=== PATIENT | female | born 1935 | race Hispanic/Latino ===

== ENCOUNTER 2017-06-16 21:05 | Inpatient (IN) | payer MEDICARE ==
--- NOTE | 2017-06-16 21:27 | ED PDOC ---
Arrival/HPI - General Chief Complaint: Cough, Cold, Congestion Time Seen by Provider: 06/16/17 21:20 Historian: Patient - History of Present Illness Narrative History of Present Illness (Text): 06/16/17 21:27 Devika Hernandez is an 81 year old female, whose past medical history includes atrial fibrillation, hypertension, cholecystectomy, arthritis, and osteoporosis , who presents to the Emergency department accompanied by son complaining of flu -like symptoms. Patient states she has been feeling unwell since yesterday with nausea, cough, congestion, and shortness of breath. Son states symptoms worsened tonight prompting patient to come the Emergency room for further evaluation. Patient denies any fever, chest pain, abdominal pain, diarrhea, urinary symptoms, back pain, neck pain, headache, dizziness, or any other complaints. PMD: Dr. De La Garza Symptom Onset: Gradual Symptom Course: Unchanged Activities at Onset: Light Context: Home Past Medical History - Provider Review Nursing Documentation Reviewed: Yes - Infectious Disease Hx of Infectious Diseases: None - Tetanus Immunization Tetanus Immunization: Unknown - Reproductive Menopause: Yes - Cardiac Hx Cardiac Disorders: Yes - Pulmonary Hx Respiratory Disorders: No - Neurological Hx Neurological Disorder: No - HEENT Hx HEENT Disorder: Yes Other/Comment: glasses - Renal Hx Renal Disorder: No - Endocrine/Metabolic Hx Endocrine Disorders: No - Hematological/Oncological Hx Blood Disorders: No - Integumentary Hx Dermatological Disorder: No - Musculoskeletal/Rheumatological Hx Arthritis: Yes - Gastrointestinal Hx Gastrointestinal Disorders: Yes Other/Comment: HEMMORRHOIDS - Genitourinary/Gynecological Hx Genitourinary Disorders: No Hx Urinary Tract Infection: Yes - Psychiatric Hx Psychophysiologic Disorder: No Hx Substance Use: No - Surgical History Hx Cholecystectomy: Yes Other/Comment: HEMORRHOIDECTOMY,HYSTERECTOMY - Anesthesia Hx Anesthesia: Yes Hx Anesthesia Reactions: No Hx Malignant Hyperthermia: No - Suicidal Assessment Feels Threatened In Home Enviroment: No Family/Social History - Physician Review Nursing Documentation Reviewed: Yes Family/Social History: Unknown Family HX Smoking Status: Never Smoked Hx Alcohol Use: No Hx Substance Use: No Hx Substance Use Treatment: No Allergies/Home Meds Allergies/Adverse Reactions: Allergies No Known Allergies Allergy (Verified 06/16/17 21:13) Home Medications: Home Meds Medication Instructions Recorded Confirmed Atorvastatin Calcium [Lipitor] 10 mg PO DAILY 05/11/12 06/16/17 Metoprolol Succinate 100 mg PO DAILY 05/11/12 06/16/17 Warfarin [Coumadin] 2.5 mg PO 1800 05/11/12 06/16/17 Digoxin 0.125 mcg PO DAILY 09/03/15 06/16/17 Potassium Chloride 20 meq PO DAILY 09/03/15 06/16/17 Review of Systems - Physician Review All systems were reviewed & negative as marked: Yes - Review of Systems Constitutional: Normal. absent: Fevers Eyes: Normal ENT: Sinus Congestion, Other (+flu-like symptoms) Respiratory: SOB, Cough Cardiovascular: Normal. absent: Chest Pain Gastrointestinal: Nausea. absent: Abdominal Pain, Diarrhea Genitourinary Female: Normal. absent: Dysuria, Frequency, Hematuria, Urine Output Changes Musculoskeletal: Normal. absent: Back Pain, Neck Pain Skin: Normal. absent: Rash Neurological: Normal. absent: Headache, Dizziness Endocrine: Normal Hemo/Lymphatic: Normal Psychiatric: Normal Physical Exam Vital Signs Reviewed: Yes Vital Signs Temp Pulse Resp BP Pulse Ox 06/17/17 07:29 81 20 122/61 95 06/17/17 06:01 84 19 113/50 L 94 L 06/17/17 02:00 86 18 131/64 95 06/16/17 23:30 77 18 128/78 95 06/16/17 21:13 98.3 F 72 20 134/84 91 L Temperature: Afebrile Blood Pressure: Normal Pulse: Regular Respiratory Rate: Normal Appearance: Positive for: Well-Appearing, Non-Toxic, Comfortable Pain Distress: None Mental Status: Positive for: Alert and Oriented X 3 - Systems Exam Head: Present: Atraumatic, Normocephalic Pupils: Present: PERRL Extroacular Muscles: Present: EOMI Conjunctiva: Present: Normal Mouth: Present: Moist Mucous Membranes Neck: Present: Normal Range of Motion Respiratory/Chest: Present: Wheezes (Bilateral wheezing). No: Respiratory Distress, Accessory Muscle Use Cardiovascular: Present: Normal S1, S2, Irregular Rhythm (Irregular, regular). No: Murmurs Abdomen: Present: Normal Bowel Sounds. No: Tenderness, Distention, Peritoneal Signs Back: Present: Normal Inspection Upper Extremity: Present: Normal Inspection. No: Cyanosis, Edema Lower Extremity: Present: Normal Inspection. No: Edema Neurological: Present: GCS=15, CN II-XII Intact, Speech Normal Skin: Present: Warm, Dry, Normal Color. No: Rashes Psychiatric: Present: Alert, Oriented x 3, Normal Insight, Normal Concentration Medical Decision Making ED Course and Treatment: 06/16/17 21:27 Impression: 81 year old female complaining of nausea, cough, congestion, and shortness of breath. Plan: -- EKG -- CXR -- Labs, cardiac enzymes, BNP, Digoxin, lipase -- Rapid influenza -- Duoneb -- Reassess and disposition Prior Visits: Notes and results from previous visits were reviewed. On 09/03/2015, pt was seen in the Emergency department for generalzied abdominal pain, diarrhea, and loss of appetite. Pt was admitted to the hosptial for further evaluation. Progress Notes: 06/16/17 21:50 Reviewed EKG, a fib at 72 bpm. RBBB. LAHB. Non-specific ST/T wave changes. 06/16/17 23:02 CXR reviewed, shows increased pulmonary vascular markings. 06/16/17 23:[address] Laureano, covering for Dr. Ruggiero, who is aware and agrees with plan. Pt will go to telemetry observation for hypokalemia and dyspnea under Dr. Ruggiero's service. - Lab Interpretations Lab Results: 06/16/17 21:40 06/16/17 21:40 Lab Results 06/16/17 21:40: Digoxin < 0.4 L 06/16/17 21:40: WBC 10.8 D, RBC 4.63, Hgb 14.0, Hct 42.3, MCV 91.4, MCH 30.2, MCHC 33.1, RDW 15.0 H, Plt Count 204, MPV 10.9 06/16/17 21:40: Sodium 136, Potassium 2.8 L*, Chloride 91 L, Carbon Dioxide 35 H , Anion Gap 13, BUN 14, Creatinine 0.7, Est GFR ( Amer) > 60, Est GFR ( Non-Af Amer) > 60, Random Glucose 129 H, Calcium 9.4, Total Bilirubin 0.8, AST 47 H, ALT 37, Alkaline Phosphatase 71, Lactate Dehydrogenase 475, Total Creatine Kinase 68, Troponin I < 0.01, NT-Pro-B Natriuret Pep 288, Total Protein 7.8, Albumin 4.2, Globulin 3.6, Albumin/Globulin Ratio 1.2, Lipase 84 06/16/17 21:40: PT 21.0 H, INR 1.82 H, APTT 42.8 H 06/16/17 20:10: Influenza Typ A,B (EIA) Negative for flu a/b I have reviewed the lab results: Yes - RAD Interpretation Radiology Orders: 06/16/17 21:28 CHEST PORTABLE [RAD] Stat - EKG Interpretation Interpreted by ED Physician: Yes Type: 12 lead EKG - Medication Orders Current Medication Orders: Atorvastatin Calcium (Lipitor) 10 mg PO DAILY [facility] Digoxin (Lanoxin) 0.125 mg PO 1400 [facility] Metoprolol Succinate (Toprol Xl) 100 mg PO DAILY [facility] Potassium Chloride (K-Dur 20 Meq Er Tab) 20 meq PO BRK [facility] Warfarin Sodium (Coumadin) 2.5 mg PO 1800 [facility] PRN Reason: Protocol Discontinued Medications Albuterol/Ipratropium (Duoneb 3 Mg/0.5 Mg (3 Ml) Ud) 3 ml IH ONCE STA Stop: 06/16/17 21:42 Last Admin: 06/16/17 22:16 Dose: 3 ml Albuterol/Ipratropium (Duoneb 3 Mg/0.5 Mg (3 Ml) Ud) 3 ml IH ONCE STA Stop: 06/16/17 23:35 Last Admin: 06/16/17 23:56 Dose: 3 ml Guaifenesin/Codeine Phosphate (Robitussin W/Codeine) 5 ml PO ONCE ONE Stop: 06/17/17 00:04 Last Admin: 06/17/17 00:12 Dose: 5 ml Potassium Chloride (Potassium Chloride 20 Meq/100 Ml) 20 meq in 100 mls @ 50 mls/hr IV ONCE ONE Stop: 06/17/17 01:02 Last Admin: 06/16/17 23:25 Dose: 50 mls/hr eMAR Start Stop Document 06/16/17 23:25 YP (Rec: 06/16/17 23:29 YP [id number]) Intravenous Solution Start Date 06/16/17 Start Time 23:25 End Date 06/17/17 End time 01:25 Total Infusion Time 120 Potassium Chloride (K-Dur 20 Meq Er Tab) 20 meq PO STAT STA Stop: 06/16/17 23:04 Last Admin: 06/16/17 23:30 Dose: 20 meq - Scribe Statement The provider has reviewed the documentation as recorded by the Sylviaibserge Adams All medical record entries made by the Sylviaibserge were at my direction and personally dictated by me. I have reviewed the chart and agree that the record accurately reflects my personal performance of the history, physical exam, medical decision making, and the department course for this patient. I have also personally directed, reviewed, and agree with the discharge instructions and disposition. Disposition/Present on Arrival - Present on Arrival Any Indicators Present on Arrival: No History of DVT/PE: No History of Uncontrolled Diabetes: No Urinary Catheter: No History of Decub. Ulcer: No History Surgical Site Infection Following: None - Disposition Have Diagnosis and Disposition been Completed?: Yes Diagnosis: Hypokalemia, Dyspnea Disposition: HOSPITALIZED Disposition Time: 00:05 Condition: GOOD
[2017-06-16] MEDS ORDERED: Albuterol-Ipratrop 3 mg / 0.5 (3 ml) UD IH STA ×2 (21:41→23:34)
[2017-06-16 22:12] LABS: MEAN CELL VOLUME 91.4 fl (80.0-105.0); MEAN CORPUSCULAR HEMOGLOBIN 30.2 pg (25.0-35.0); MEAN CORPUSCULAR HGB CONC 33.1 g/dl (31.0-37.0); MEAN PLATELET VOLUME 10.9 fl (7.0-11.0); RBC 4.63 10^6/uL (3.5-6.1); WHITE BLOOD COUNT 10.8 10^3/ul (4.5-11.0)
[2017-06-16 22:21] LABS: INR 1.82 (0.93-1.08); PARTIAL THROMBOPLASTIN TIME 42.8 Seconds (25.1-36.5)
[2017-06-16 22:29] LABS: ALB/GLOB RATIO 1.2 (1.1-1.8); ALBUMIN 4.2 g/dL (3.0-4.8); ALT/SGPT 37 U/L (7-56); AST/SGOT 47 U/L (14-36); BLOOD UREA NITROGEN 14 mg/dL (7-21); CALCIUM 9.4 mg/dL (8.4-10.5); GFR AFRICAN-AMERICAN > 60; GFR NON-AFRICAN AMERICAN > 60; LIPASE 84 U/L (23-300)
[2017-06-16 22:31] LABS: B-TYPE NATRIURETIC PEPTIDE 288 pg/mL (0-450); TROPONIN I < 0.01 ng/mL
[2017-06-16] MEDS ORDERED: Potassium Chloride 20 mEq ER Tab PO STA (23:03)
[2017-06-17] MEDS ORDERED: guaiFENesin-Codeine 100-10mg/5ml Syrup (5 ml) UD PO ONE (00:03)
[2017-06-17 06:32] LABS: HEMOGLOBIN 13.4 g/dL (12.0-16.0); MEAN CORPUSCULAR HEMOGLOBIN 30.9 pg (25.0-35.0); RBC 4.34 10^6/uL (3.5-6.1); WHITE BLOOD COUNT 7.7 10^3/ul (4.5-11.0)
[2017-06-17 06:33] LABS: GRAN % 76.4 % (50.0-68.0); LYMPH % 15.1 % (22.0-35.0); MEAN CORPUSCULAR HGB CONC 33.9 g/dl (31.0-37.0); MEAN PLATELET VOLUME 11.2 fl (7.0-11.0); RED CELL DISTRIBUTION WIDTH 15.1 % (11.5-14.5)
[2017-06-17 06:34] LABS: BASO # 0.01 K/mm3 (0.0-2.0); BASO % 0.1 % (0.0-3.0); EOS % 0.1 % (1.5-5.0); GRAN # 5.91 (1.4-6.5); LYMPH # 1.2 (1.2-3.4); MONO # 0.6 (0.1-0.6); MONO % 8.3 % (1.0-6.0)
[2017-06-17 06:53] LABS: BLOOD UREA NITROGEN 11 mg/dL (7-21); CALCIUM 9.3 mg/dL (8.4-10.5); GFR AFRICAN-AMERICAN > 60; GFR NON-AFRICAN AMERICAN > 60
[2017-06-17 07:01] LABS: TROPONIN I 0.03 ng/mL
--- NOTE | 2017-06-17 08:42 | RAD ---
HISTORY: sob COMPARISON: 09/03/2015 FINDINGS: LUNGS: No active pulmonary disease. PLEURA: No significant pleural effusion identified, no pneumothorax apparent. CARDIOVASCULAR: Moderate cardiomegaly OSSEOUS STRUCTURES: No significant abnormalities. VISUALIZED UPPER ABDOMEN: Normal. OTHER FINDINGS: None. IMPRESSION: No active disease.
[2017-06-17] MEDS: Potassium Chloride 20 mEq ER Tab PO SCH (10:21)
[2017-06-17] MEDS: Metoprolol Succinate 100 mg XL Tab PO SCH (12:04)
[2017-06-17] MEDS: Digoxin 125 mcg (0.125 mg) Tab PO SCH (14:13)
[2017-06-17] MEDS: Albuterol-Ipratrop 3 mg / 0.5 (3 ml) UD IH SCH ×2 (14:44→20:50)
[2017-06-17 16:40] VITALS: BMI 41.0
[2017-06-18] MEDS: MethylPREDNISolone 40 mg Vial IVP SCH ×3 (00:05→22:12)
--- NOTE | 2017-06-18 01:20 | HP ---
DATE OF EVALUATION: 06/17/2017 HISTORY OF PRESENT ILLNESS: Ms. Hernandez is an 81-year-old female admitted to the hospital with shortness of breath. She is complaining of cough and cold. Flu is negative in the ER. She also has atrial fibrillation, hypertension, cholecystectomy, osteoarthritis, and osteoporosis. She denies any fever, mucopurulent expectoration. No chest pain. She is still short of breath. Received breathing treatment and IV Lasix in the ER. PAST MEDICAL HISTORY: COPD, CHF, arthritis, and history of multiple UTI. PAST SURGICAL HISTORY: Hemorrhoidectomy, hysterectomy. FAMILY HISTORY: Noncontributory. SOCIAL HISTORY: Never smoked. No history of alcohol abuse. ALLERGIES: NO KNOWN DRUG ALLERGIES. HOME MEDICATIONS: Lipitor 10 mg daily, metoprolol 100 mg daily, Coumadin 2.5 mg daily, digoxin 0.125 mg daily, potassium 20 mEq daily. REVIEW OF SYSTEMS: As per HPI. Rest of 12-point review of systems reviewed is negative. PHYSICAL EXAMINATION: GENERAL: Moderate respiratory distress. VITAL SIGNS: Respiratory rate 25 per minute, temperature 98.3, heart rate is 72 per minute, blood pressure 130/80, and pulse ox is 91 per minute. HEENT: Oral mucosa is dry. NECK: No lymphadenopathy. CHEST: Air entry present and equal bilaterally. No added sounds. CARDIOVASCULAR: S1 and S2, normal. No murmur. No gallop. ABDOMEN: Soft and nontender. No hepatosplenomegaly. EXTREMITIES: No edema. PARA EDUCATOR: Alert and oriented x3. No focal sensory or motor deficit. LABORATORY DATA: White count 10.8, hemoglobin 14, hematocrit 42.3, and platelets 204. Sodium 136, potassium 2.8, BUN 14, creatinine 0.7, glucose 129. DIAGNOSTIC DATA: Chest x-ray, no infiltrates. Pulmonary vascular congestion present. EKG: Nonspecific ST-T wave changes. ASSESSMENT: 1. Chronic obstructive pulmonary disease exacerbation. 2. Congestive heart failure. 3. Atrial fibrillation. 4. Anticoagulation with Coumadin. 5. Anemia. PLAN: She will be admitted to tele monitoring. DuoNeb q.6 hours scheduled and p.r.n., and Lipitor 10 mg daily. We will continue digoxin 0.125 mg daily. Continue metoprolol 100 mg daily, potassium 20 mEq daily, Coumadin 2.5 mg daily, Lasix 20 mg IV stat. We will continue 20 mg of IV Lasix daily. We will do steroids, Solu-Medrol 30 mg q.12 hours. Protonix 40 mg IV daily. Brina Laureano MD
[2017-06-18] MEDS ORDERED: diltiaZEM IVPB 100mg in NS 100 ML IV SCH (01:45)
--- NOTE | 2017-06-18 01:45 | CP.PCM.PN ---
Subjective - Date & Time of Evaluation Date of Evaluation: 06/18/17 Time of Evaluation: 01:45 - Subjective Subjective: Nurse states that heart rate on monitor is in 130's. She is asymptomatic No chest pain , no sob.Has dry cough. Medical record was reviewed. This 81 year old woman was admitted with sob, cough, cold. Has PMH of CHF,COPD,UTI,arthritis. Objective - Vital Signs/Intake and Output Vital Signs (last 24 hours): Temp Pulse Resp BP Pulse Ox 97.8 F 82 18 125/73 95 06/18/17 00:01 06/18/17 00:01 06/18/17 00:01 06/18/17 00:01 06/17/17 07:29 Intake and Output: 06/17/17 06/18/17 18:59 06:59 Intake Total 540 Balance 540 - Medications Medications: Current Medications Albuterol/Ipratropium (Duoneb 3 Mg/0.5 Mg (3 Ml) Ud) 3 ml IH [id number] [facility] Last Admin: 06/17/17 20:50 Dose: 3 ml Atorvastatin Calcium (Lipitor) 10 mg PO DAILY [facility] Last Admin: 06/17/17 10:22 Dose: 10 mg Digoxin (Lanoxin) 0.125 mg PO 1400 [facility] Last Admin: 06/17/17 14:13 Dose: 0.125 mg Furosemide (Lasix) 20 mg IVP DAILY [facility] Methylprednisolone (Solu-Medrol) 20 mg IVP Q12 [facility] Last Admin: 06/18/17 00:05 Dose: 20 mg Metoprolol Succinate (Toprol Xl) 100 mg PO DAILY [facility] Last Admin: 06/17/17 12:04 Dose: 100 mg Pantoprazole Sodium (Protonix Inj) 40 mg IVP DAILY [facility] Potassium Chloride (K-Dur 20 Meq Er Tab) 20 meq PO BRK [facility] Last Admin: 06/17/17 10:21 Dose: 20 meq Warfarin Sodium (Coumadin) 2.5 mg PO 1800 [facility] PRN Reason: Protocol Last Admin: 06/17/17 18:44 Dose: 2.5 mg - Labs Labs: 06/17/17 05:30 06/17/17 05:30 PT 21.0 SECONDS (9.4-12.5) H 06/16/17 21:40 INR 1.82 (0.93-1.08) H 06/16/17 21:40 APTT 42.8 Seconds (25.1-36.5) H 06/16/17 21:40 - Constitutional Appears: Well, No Acute Distress - Head Exam Head Exam: ATRAUMATIC, NORMAL INSPECTION, NORMOCEPHALIC - Eye Exam Eye Exam: Normal appearance - ENT Exam ENT Exam: Normal External Ear Exam - Neck Exam Neck Exam: Normal Inspection - Respiratory Exam Respiratory Exam: NORMAL BREATHING PATTERN - Cardiovascular Exam Cardiovascular Exam: absent: JVD - Rectal Exam Rectal Exam: Deferred - Exam Additional comments: Deferred. - Extremities Exam Extremities Exam: Normal Inspection - Back Exam Back Exam: NORMAL INSPECTION - Neurological Exam Neurological Exam: Alert, Oriented x3 - Psychiatric Exam Psychiatric exam: Normal Affect - Skin Skin Exam: Normal Color Assessment and Plan - Assessment and Plan (Free Text) Assessment: Cough. Atrial fibrillation. CHF. COPD. Arthritis. Plan: Robitussin as per order.
[2017-06-18] MEDS: Albuterol-Ipratrop 3 mg / 0.5 (3 ml) UD IH SCH ×5 (01:55→21:06)
[2017-06-18 02:13] LABS: TROPONIN I 0.02 ng/mL
[2017-06-18 02:14] LABS: BLOOD UREA NITROGEN 14 mg/dL (7-21); CALCIUM 9.3 mg/dL (8.4-10.5); GFR AFRICAN-AMERICAN > 60; GFR NON-AFRICAN AMERICAN > 60; MAGNESIUM 1.2 mg/dL (1.7-2.2)
[2017-06-18] MEDS: guaiFENesin 200 mg/10 ml Syrup UD PO PRN (02:19)
[2017-06-18] MEDS ORDERED: Magnesium Sulfate 2 GM in Sodium Chloride 0.9% 100 ML IVPB ONE (05:02)
[2017-06-18] MEDS: Potassium Chloride 20 mEq ER Tab PO SCH ×6 (05:18→18:05)
[2017-06-18 07:38] LABS: BLOOD UREA NITROGEN 15 mg/dL (7-21); CALCIUM 8.8 mg/dL (8.4-10.5); GFR AFRICAN-AMERICAN > 60; GFR NON-AFRICAN AMERICAN > 60
[2017-06-18 07:40] LABS: TROPONIN I 0.02 ng/mL
[2017-06-18 07:52] LABS: BASO # 0.01 K/mm3 (0.0-2.0); BASO % 0.2 % (0.0-3.0); GRAN # 4.94 (1.4-6.5); HEMOGLOBIN 14.6 g/dL (12.0-16.0); LYMPH # 0.8 (1.2-3.4); LYMPH % 14.1 % (22.0-35.0); MEAN CELL VOLUME 89.7 fl (80.0-105.0); MEAN CORPUSCULAR HEMOGLOBIN 30.2 pg (25.0-35.0); MEAN CORPUSCULAR HGB CONC 33.6 g/dl (31.0-37.0); MEAN PLATELET VOLUME 11.6 fl (7.0-11.0); MONO # 0.2 (0.1-0.6); MONO % 2.7 % (1.0-6.0); RBC 4.84 10^6/uL (3.5-6.1); RED CELL DISTRIBUTION WIDTH 15.1 % (11.5-14.5)
[2017-06-18] MEDS: Metoprolol Succinate 100 mg XL Tab PO SCH (09:16)
--- NOTE | 2017-06-18 10:01 | CARD ---
APPROVED REPORT EKG Measurement Heart [id number] <Conclusion> Atrial fibrillation Right bundle branch block Left anterior fascicular block Bifascicular block Abnormal ECG
[2017-06-18 10:10] LABS: BLOOD UREA NITROGEN 15 mg/dL (7-21); CALCIUM 9.3 mg/dL (8.4-10.5); GFR AFRICAN-AMERICAN > 60; GFR NON-AFRICAN AMERICAN > 60
--- NOTE | 2017-06-18 10:25 | CARD ---
APPROVED REPORT EKG Measurement Heart [id number] <Conclusion> A. Fib RBBB LAHB STTW changes C/W prior ECG: the rate is increased
--- NOTE | 2017-06-18 10:29 | CARD ---
APPROVED REPORT EKG Measurement Heart [id number] <Conclusion> Atrial fibrillation with rapid ventricular response Right bundle branch block Left anterior fascicular block Bifascicular block STTW changes
[2017-06-18] MEDS: Magnesium Oxide 400 mg Tab UD PO SCH ×2 (10:56→18:05)
--- NOTE | 2017-06-18 12:29 | PN ---
DATE: SUBJECTIVE: The patient has no complaints of any chest pain, shortness of breath. No headaches. She was initially admitted to the hospital. She had hypokalemia. No chest pain. No shortness of breath or headache. PHYSICAL EXAMINATION: VITAL SIGNS: Temperature is 98.9, pulse of 136, blood pressure is 114/69, respirations of 20 and O2 saturation 95%. GENERAL: The patient is lying in bed, flat, comfortable. HEENT: No oral lesion. Anicteric sclerae. Moist mucosa. NECK: No JVD, adenopathy, or thyromegaly. CARDIOVASCULAR: S1 and S2, regular. No murmurs, rubs, or gallops. LUNGS: Clear to auscultation bilaterally. No wheeze, rales, or rhonchi. ABDOMEN: Bowel sounds are positive, soft, nontender and nondistended. EXTREMITIES: No cyanosis, clubbing or edema. ASSESSMENT: 1. Atrial fibrillation with rapid rate. 2. Chronic obstructive pulmonary disease. 3. Hypokalemia. 4. Anemia. 5. Congestive heart failure secondary to systolic dysfunction. 6. Dyslipidemia. 7. Osteoarthritis. PLAN: The patient is currently comfortable. She is on Coumadin for her anticoagulation for her AFib. She has potassium that was low, she is getting potassium. She is on Cardizem drip. The patient is being seen by . The patient will need to come off her Cardizem drip and have the rate control. She is on Toprol. She is going to continue with Solu-Medrol. She is on nebulizer treatments. Repeat the patient's blood work. Jw Ruggiero MD
[2017-06-18] MEDS: Digoxin 125 mcg (0.125 mg) Tab PO SCH (15:23)
--- NOTE | 2017-06-18 21:24 | CON ---
DATE: 06/18/2017 INDICATIONS: Shortness of breath, atrial fibrillation, hypokalemia, and hypomagnesemia. HISTORY OF PRESENT ILLNESS: This is an 81-year-old woman known to me with chronic atrial fibrillation, admitted with worsening flu-like symptoms including weakness, nausea, cough, shortness of breath. Symptoms got worse late yesterday. She was brought to the emergency room and found to have severe hypokalemia and hypomagnesemia. Overnight, she has been treated with potassium and magnesium replacement. She feels better this morning but still has cough and some congestion. There is no chest pain, orthopnea, PND, syncope, presyncope, lightheadedness, dizziness, vertigo, palpitations, edema, claudication, hemoptysis, abdominal pain, nausea, vomiting, diarrhea, constipation and melena. PAST MEDICAL HISTORY: Notable for atrial fibrillation. She is on chronic warfarin therapy. There is a history of hypertension, osteoporosis, arthritis. PAST SURGICAL HISTORY: History of surgeries including gallbladder surgery, hemorrhoidectomy, and hysterectomy. There is no history of rheumatic fever, myocardial infarction, angina, stroke, TIA, diabetes, or gout. MEDICATIONS: At the time of admission include Lipitor, metoprolol, warfarin, digoxin, and potassium chloride. She is not on a diuretic that I can see. ALLERGIES: THERE ARE NO KNOWN MEDICATION ALLERGIES. SOCIAL HISTORY: She lives at home. She is a nonsmoker. She does not drink alcohol significantly. FAMILY HISTORY: Noncontributory. REVIEW OF SYSTEMS: Ten-point review of systems, otherwise, unremarkable except as noted above. PHYSICAL EXAMINATION GENERAL: She is a well-developed woman lying in bed on telemetry with no acute distress, but intermittent cough. VITAL SIGNS: She is in atrial fib at 92 to 136 beats per minute. She is afebrile. Blood pressure 114/69, respirations 18 to 20, O2 saturation 95% on nasal cannula. HEENT: Exam reveals no neck vein distention, thyromegaly, or carotid bruits. Mucous membranes moist. Conjunctiva pink. NECK: Supple. LUNGS: Lung forman, scattered rhonchi. HEART: Examination of the heart revealed an irregular rhythm, fairly rapid. Normal first and second heart sounds. Soft systolic murmur along the left sternal border. ABDOMEN: Soft. Bowel sounds present. No mass, organomegaly, tenderness, rebound, guarding, CVA tenderness, or palpable abdominal aortic aneurysm. EXTREMITIES: Exam revealed no cyanosis, clubbing, or edema. NEUROLOGICAL: She was awake, alert, and oriented. SKIN: Warm and dry. No rash or cellulitis. PSYCHIATRIC: Normal as to mood and affect. LABORATORY AND IMAGING: EKG demonstrated atrial fibrillation with leftward axis, right bundle branch block, ST-T wave changes. No change from prior EKG except that the rate is faster. A portable chest x-ray revealed no active disease. CBC is unremarkable. PT 21, INR 1.82, PTT 42.8. Electrolytes initially show potassium of 2.8 and today potassium is 3.0, creatinine 0.7 and today 0.6. Blood sugars are noted in the 114 to 164 range. Magnesium was 1.2 this morning. AST is elevated at 47, ALT is normal, alk phos normal, LDH normal, CK normal. Four troponins normal. BNP 288. Lipase normal. Digoxin is less than 0.4. Influenza negative. IMPRESSION: Devika Hernandez is an 81-year-old woman who presents with cough, congestion, weakness and was found to have severe hypokalemia and hypomagnesemia in addition to chronic atrial fibrillation, on warfarin; hypertension and hyperlipidemia. PLAN: At this time, I agree with current plan. She is on telemetry and she is getting potassium and magnesium replacements. The etiology of this is unclear and as much as I do not see that she was on a diuretic and there was no history of diarrhea. She was on a potassium replacement which she stopped for 2 days. I will hold Lasix at this time so that we can replace her potassium. She is getting pulmonary treatments. I will continue warfarin and monitor INRs. I will continue digoxin. I will continue Lipitor. Solu-Medrol has been ordered. I will order an echocardiogram. We will monitor Is and Os. Check stool for occult blood. Monitor daily labs, especially potassium and magnesium levels. I have spoken with her daughter. I will follow along with you. I will make additional recommendations based on the clinical course. Kirit Rodriguez MD [facility]
[2017-06-19] MEDS: Albuterol-Ipratrop 3 mg / 0.5 (3 ml) UD IH SCH ×4 (02:04→19:34)
[2017-06-19 07:29] LABS: MEAN CELL VOLUME 90.3 fl (80.0-105.0); MEAN CORPUSCULAR HEMOGLOBIN 30.9 pg (25.0-35.0); MEAN CORPUSCULAR HGB CONC 34.2 g/dl (31.0-37.0); MEAN PLATELET VOLUME 11.3 fl (7.0-11.0); RBC 5.18 10^6/uL (3.5-6.1); RED CELL DISTRIBUTION WIDTH 14.4 % (11.5-14.5); WHITE BLOOD COUNT 7.7 10^3/ul (4.5-11.0)
[2017-06-19 08:46] LABS: ALB/GLOB RATIO 1.1 (1.1-1.8); ALBUMIN 4.3 g/dL (3.0-4.8); ALT/SGPT 41 U/L (7-56); AST/SGOT 51 U/L (14-36); BLOOD UREA NITROGEN 28 mg/dL (7-21); CALCIUM 9.4 mg/dL (8.4-10.5); GFR AFRICAN-AMERICAN > 60; GFR NON-AFRICAN AMERICAN > 60; MAGNESIUM 1.9 mg/dL (1.7-2.2)
[2017-06-19] MEDS: Metoprolol Succinate 100 mg XL Tab PO SCH (09:06)
[2017-06-19] MEDS: Magnesium Oxide 400 mg Tab UD PO SCH ×2 (09:13→17:12)
[2017-06-19] MEDS: Potassium Chloride 20 mEq ER Tab PO SCH ×3 (09:13→17:12)
--- NOTE | 2017-06-19 09:15 | CP.PCM.PN ---
Subjective - Date & Time of Evaluation Date of Evaluation: 06/19/17 Time of Evaluation: 07:00 - Subjective Subjective: Stable on 3R. She feels better now. Still mild cough. V/S noted. AF with mod. VR. PE: Lungs: clear Cor.: irreg. S1S2 Abd.: soft Ext.: no edema Neuro.: alert Labs noted: Na+= 139, K+= 4.1, Mg.++= 1.9 Echo done: Will review. prelim: Nl LV fx. Objective - Vital Signs/Intake and Output Vital Signs (last 24 hours): Temp Pulse Resp BP Pulse Ox 97.7 F 72 20 128/79 91 L 06/19/17 06:00 06/19/17 06:00 06/19/17 06:00 06/19/17 06:00 06/19/17 06:00 Intake and Output: 06/19/17 06/19/17 06:59 18:59 Intake Total 660 Balance 660 - Medications Medications: Current Medications Albuterol/Ipratropium (Duoneb 3 Mg/0.5 Mg (3 Ml) Ud) 3 ml IH [id number] [facility] Last Admin: 06/19/17 07:50 Dose: Not Given Atorvastatin Calcium (Lipitor) 10 mg PO DAILY [facility] Last Admin: 06/18/17 09:16 Dose: 10 mg Digoxin (Lanoxin) 0.125 mg PO 1400 [facility] Last Admin: 06/18/17 15:23 Dose: 0.125 mg Furosemide (Lasix) 20 mg IVP DAILY [facility] Last Admin: 06/18/17 09:15 Dose: 20 mg Guaifenesin (Robitussin) 200 mg PO Q4H PRN PRN Reason: Cough and congestion Last Admin: 06/18/17 02:19 Dose: 200 mg Magnesium Oxide (Mag-Ox) 400 mg PO BID [facility] Last Admin: 06/18/17 18:05 Dose: 400 mg Metoprolol Succinate (Toprol Xl) 100 mg PO DAILY [facility] Last Admin: 06/18/17 09:16 Dose: 100 mg Pantoprazole Sodium (Protonix Inj) 40 mg IVP DAILY [facility] Last Admin: 06/18/17 09:15 Dose: 40 mg Potassium Chloride (K-Dur 20 Meq Er Tab) 20 meq PO TID [facility] Last Admin: 06/18/17 18:05 Dose: 20 meq Warfarin Sodium (Coumadin) 2.5 mg PO 1800 [facility] PRN Reason: Protocol Last Admin: 06/18/17 18:05 Dose: 2.5 mg - Labs Labs: 06/19/17 07:15 06/19/17 07:15 PT 21.0 SECONDS (9.4-12.5) H 06/16/17 21:40 INR 1.82 (0.93-1.08) H 06/16/17 21:40 APTT 42.8 Seconds (25.1-36.5) H 06/16/17 21:40 Assessment and Plan - Assessment and Plan (Free Text) Assessment: Weakness, Cough, Congestion, Dyspnea Hypokalemia and hypomagnesemia Chronic AF on warfarin HBP Osteoporosis DJD GB surgery, Hysterectomy and hernia repair Plan: Case D/W Dr. De La Garza yesterday and Dr. Ruggiero today OK for D/C home with close out-pt f/u with Dr. De La Garza Spironolactone trial. PO mag.
--- NOTE | 2017-06-19 09:49 | DS ---
HISTORY OF PRESENT ILLNESS: This is an 81-year-old female who came into the hospital with rapid atrial fibrillation, hypokalemia and hypomagnesemia. The patient had her electrolytes replaced. She was started on IV Cardizem and had improvement of her symptoms. The patient's Cardizem was taken off and she was controlled. The patient was seen by Dr. Rodriguez. She had an echocardiogram that was ordered. She has no complaints of any headaches or dizziness. No nausea. She states she is feeling better. PHYSICAL EXAMINATION: VITAL SIGNS: She has a temperature of 98.4, pulse of 69, blood pressure of 132/75, respirations of 20, and O2 saturation of 91%. Height is 5 feet, weight is 210 pounds, and BMI is 41. GENERAL: The patient is lying in bed, flat, comfortable. HEENT: No oral lesion. Anicteric sclerae. Moist mucosa. NECK: No JVD, adenopathy, or thyromegaly. CARDIOVASCULAR: S1 and S2, regular. No murmurs, rubs, or gallops. LUNGS: Clear to auscultation bilaterally. No wheeze, rales, or rhonchi. ABDOMEN: Bowel sounds are positive, soft, nontender and nondistended. EXTREMITIES: No cyanosis, clubbing or edema. LABORATORY DATA: Her a.m. labs are pending. ASSESSMENT: 1. Atrial fibrillation with rapid rate, not controlled. 2. Chronic obstructive pulmonary disease. 3. Hypokalemia, improved. 4. Hypomagnesemia. 5. Anemia. 6. Congestive heart failure secondary to systolic dysfunction. 7. Dyslipidemia. 8. Osteoarthritis. PLAN: The patient is currently comfortable. She is on Coumadin for her anticoagulation for her atrial fibrillation. The patient is receiving digoxin. She is receiving Protonix. She is on Solu-Medrol, I will discontinue the patient's Solu-Medrol at this point. The patient is on metoprolol, this will be continued. I did spoke with Dr. Rodriguez and he does not think that the patient needs anything more than the metoprolol to control her atrial fibrillation. She is currently off IV Cardizem and is not on p.o. Cardizem. The patient is on Lipitor for dyslipidemia. She is going to be discharged on magnesium and Aldactone. The patient was advised to follow with the primary care doctor. CONDITION: Stable. ACTIVITY: Increase as tolerated. Follow with in 1 to [address] Rodriguez in 1 to 2 weeks. DISCHARGE MEDICATIONS: 1. Aldactone 25 mg p.o. daily. 2. Magnesium 400 mg p.o. daily. Jw Ruggiero MD
--- NOTE | 2017-06-19 11:05 | CARD ---
APPROVED REPORT EXAM: Two-dimensional and M-mode echocardiogram with Doppler and color Doppler. Other Information Quality : FairRhythm : INDICATION Dyspnea Atrial Fibrillation 2D DIMENSIONS Left Atrium (2D)4.5 (1.6-4.0cm) M-Mode DIMENSIONS Aortic Root3.60 (2.2-3.7cm)Aortic Cusp Exc.1.60 (1.5-2.0cm) Aortic Valve AoV Peak Tlzrgtxy823.0cm/s Mitral Valve E/A ratio0.0 TDI E/Lateral E'0.0E/Medial E'0.0 Pulmonary Valve PV Peak Nkvqqzfg007.0cm/sPV Peak Grad.5mmHg Tricuspid Valve TR Peak Ppjdpvwz993zz/sRAP [id number] Peak Gr.31mmHg [id number] LEFT VENTRICLE The left ventricle is normal size. There is normal left ventricular wall thickness. The left ventricular function is normal. The left ventricular ejection fraction is within the normal range. There is normal LV segmental wall motion. RIGHT VENTRICLE The right ventricle is normal size. ATRIA The left atrium is moderately dilated. The right atrium is mildly dilated. The interatrial septum is intact with no evidence for an atrial septal defect. AORTIC VALVE The aortic valve is mildly calcified. MITRAL VALVE The mitral valve is normal in structure. Mitral regurgitation is mild. TRICUSPID VALVE The tricuspid valve is normal in structure. There is trace tricuspid regurgitation. PULMONIC VALVE The pulmonic valve is not well visualized. GREAT VESSELS The aortic root is normal in size. PERICARDIAL EFFUSION There is no pericardial effusion. <Conclusion> The left ventricle is normal size. There is normal left ventricular wall thickness. The left ventricular function is normal. The aortic valve is mildly calcified. Aortic sclerosis. Mitral regurgitation is mild. There is trace tricuspid regurgitation.
[2017-06-19] MEDS: Digoxin 125 mcg (0.125 mg) Tab PO SCH (13:36)
[2017-06-20] MEDS: Albuterol-Ipratrop 3 mg / 0.5 (3 ml) UD IH SCH ×4 (01:30→20:10)
[2017-06-20 04:15] VITALS: RESP 18
[2017-06-20 06:16] VITALS: TEMP 97.6
[2017-06-20] MEDS: guaiFENesin 200 mg/10 ml Syrup UD PO PRN ×2 (08:48→13:29)
[2017-06-20] MEDS: Metoprolol Succinate 100 mg XL Tab PO SCH ×2 (08:48→10:48)
[2017-06-20] MEDS: Pantoprazole 40 mg EC Tab PO SCH ×2 (08:48→08:52)
[2017-06-20] MEDS: Potassium Chloride 20 mEq ER Tab PO SCH ×3 (10:47→17:34)
[2017-06-20] MEDS: Magnesium Oxide 400 mg Tab UD PO SCH ×2 (10:47→17:26)
--- NOTE | 2017-06-20 10:59 | PN ---
DATE: 06/20/2017 SUBJECTIVE: The patient has no complaints of any chest pain or shortness of breath. No headache. She was not able to come yesterday because of rapid rate secondary to atrial fibrillation. PHYSICAL EXAMINATION: VITAL SIGNS: Temperature is 98.2, pulse is 70, blood pressure is 114/68, respiration is 18. GENERAL: The patient is lying in bed, flat, comfortable. HEENT: No oral lesion. Anicteric sclerae. Moist mucosa. NECK: No JVD, adenopathy, or thyromegaly. HEART: Irregularly irregular. LUNGS: Clear to auscultation bilaterally. No wheeze, rales, or rhonchi. ABDOMEN: Bowel sounds are positive, soft, nontender and nondistended. EXTREMITIES: No cyanosis, clubbing or edema. LABORATORY DATA: White count is 7.7, hemoglobin 16, creatinine 0.7. ASSESSMENT: 1. Atrial fibrillation with rapid rate. 2. Chronic obstructive pulmonary disease, stable. 3. Hypokalemia, improved. 4. Hypomagnesemia, improved. 5. Anemia. 6. Congestive heart failure secondary to systolic dysfunction. 7. Dyslipidemia. 8. Osteoarthritis. PLAN: The patient is currently on Coumadin for anticoagulation. We will continue the patient's digoxin and continue with Lasix daily. She is on magnesium. We will place the patient on metoprolol. The patient was tachycardic yesterday, then has improvement of the heart rate. We will wait for the input from Cardiology. Jw Ruggiero MD
--- NOTE | 2017-06-20 14:30 | PN ---
DATE: 06/20/2017 SUBJECTIVE: The patient is seen lying in bed on telemetry. She is seen in the presence of her daughter. She converted to sinus rhythm this morning. Her discharge yesterday was held because of an increased rate in the setting of atrial fibrillation. CURRENT MEDICATIONS: Include Coumadin, DuoNeb inhaler, digoxin 0.125 mg daily, Lasix 40 mg daily, potassium 20 mEq t.i.d., Lipitor 10 mg daily, Protonix, and Toprol-XL 100 mg daily. OBJECTIVE: GENERAL: She is an elderly woman, appears comfortable at rest. VITAL SIGNS: Blood pressure is 110/70 with a pulse of 68 and sinus, respirations are 14. She is afebrile. HEENT: No JVD. CHEST: Few scattered rhonchi. HEART: PMI in normal position. Soft systolic murmurs noted at the bases as well as at the left sternal border. ABDOMEN: Soft, nontender. Normoactive bowel sounds. EXTREMITIES: No edema. DIAGNOSTIC DATA: Echocardiogram was performed revealing a normal LV size and function with normal wall thickness and mild aortic sclerosis was present and mild mitral regurgitation was noted as well. No blood work is pending from this morning. IMPRESSION: 1. Paroxysmal atrial fibrillation, currently in sinus rhythm. 2. Electrolyte abnormalities on admission currently corrected. 3. History of hypertension. RECOMMENDATIONS: The current medications will be continued for now. From cardiac standpoint, she appears stable for discharge home with outpatient follow up. If she has recurrent atrial fibrillation with rapid ventricular response, the addition of diltiazem may be appropriate. From a cardiac standpoint, she is stable for discharge. We will be happy to see her as an outpatient as well. Toño Vernon MD
[2017-06-20] MEDS: Digoxin 125 mcg (0.125 mg) Tab PO SCH (14:50)
[2017-06-20 15:10] VITALS: PULSE 54
[2017-06-20] MEDS ORDERED: guaiFENesin 200 mg/10 ml Syrup UD PO SCH (18:00)
[2017-06-20 19:19] VITALS: BP 143/99; PULSE 130; O2SAT 95
--- NOTE | 2017-06-21 11:23 | CARD ---
APPROVED REPORT EKG Measurement Heart [id number] <Conclusion> Atrial fibrillation with rapid ventricular response RBBB LAHB STTW changes No change
== END 2017-06-20 20:28 | disposition home or self-care (01) | DRG 191 ==
LOC: ED 21:05 → ERH 06-17 00:04 → 3RSO 06-17 18:10 → OBSVTOIN 06-18 08:48
PROVIDERS: ADMIT Internal Medicine Nephrology; ATTEND Internal Medicine Nephrology
DX: J44.1 Chronic obstructive pulmonary disease with (acute) exacerbation (principal); I50.20 Unspecified systolic (congestive) heart failure; E83.42 Hypomagnesemia; I11.0 Hypertensive heart disease with heart failure; I48.0 Paroxysmal atrial fibrillation; Z68.41 Body mass index [BMI] 40.0-44.9, adult; E87.6 Hypokalemia; D64.9 Anemia, unspecified; E78.5 Hyperlipidemia, unspecified; I48.2 Chronic atrial fibrillation; M19.90 Unspecified osteoarthritis, unspecified site; M81.0 Age-related osteoporosis without current pathological fracture; Z79.01 Long term (current) use of anticoagulants; Z79.899 Other long term (current) drug therapy; Z87.440 Personal history of urinary (tract) infections; Z90.49 Acquired absence of other specified parts of digestive tract; Z90.710 Acquired absence of both cervix and uterus; R40.2412 Glasgow coma scale score 13-15, at arrival to emergency department; I45.10 Unspecified right bundle-branch block; I08.0 Rheumatic disorders of both mitral and aortic valves

== ENCOUNTER 2017-08-17 09:54 | Inpatient (IN) | payer MEDICARE ==
[2017-08-17 09:56] VITALS: PULSE 54
[2017-08-17 10:02] VITALS: BMI 40.4
[2017-08-17 10:28] LABS: VENOUS BLOOD GAS BASE EXCESS 3.2 mmol/L (0.0-2.0); VENOUS BLOOD GAS PO2 34 mm/Hg (30-55)
[2017-08-17 10:31] LABS: BASO # 0.02 K/mm3 (0.0-2.0); BASO % 0.2 % (0.0-3.0); EOS # 0.1 (0.0-0.7); GRAN # 5.86 (1.4-6.5); GRAN % 67.1 % (50.0-68.0); HEMOGLOBIN 13.9 g/dL (12.0-16.0); LYMPH # 2.3 (1.2-3.4); LYMPH % 26.2 % (22.0-35.0); MEAN CELL VOLUME 93.4 fl (80.0-105.0); MEAN CORPUSCULAR HEMOGLOBIN 30.4 pg (25.0-35.0); MEAN CORPUSCULAR HGB CONC 32.6 g/dl (31.0-37.0); MONO # 0.5 (0.1-0.6); MONO % 5.5 % (1.0-6.0); RBC 4.57 10^6/uL (3.5-6.1); RED CELL DISTRIBUTION WIDTH 15.3 % (11.5-14.5); WHITE BLOOD COUNT 8.7 10^3/ul (4.5-11.0)
--- NOTE | 2017-08-17 10:32 | ED PDOC ---
Arrival/HPI - General Chief Complaint: Shortness Of Breath Time Seen by Provider: 08/17/17 10:14 Historian: Patient - History of Present Illness Narrative History of Present Illness (Text): 08/17/17 10:27 82yo female with PMhx of Afib referred to ED by Dr. De La Garza for hypotension and bradycardia. The daughter by the bedside states patient started having SOB while climibing the stairs to her Doctors office for a routine blood work. states while patient was at the Doctors office she was found to be hyptoensive and shawn. She also reports worsening LE edema. States that patient is currently on sprinolactone. Denies chest pain, cough, fever, chills, nausea, vomiting, diaphoresis, calf pain, any other complaint. Past Medical History - Provider Review Nursing Documentation Reviewed: Yes - Infectious Disease Hx of Infectious Diseases: None - Tetanus Immunization Tetanus Immunization: Unknown - Cardiac Hx Cardiac Disorders: Yes Hx Hypertension: Yes - Pulmonary Hx Respiratory Disorders: No - Neurological Hx Neurological Disorder: No - HEENT Hx HEENT Disorder: Yes Other/Comment: glasses - Renal Hx Renal Disorder: No - Endocrine/Metabolic Hx Endocrine Disorders: No - Hematological/Oncological Hx Blood Disorders: No - Integumentary Hx Dermatological Disorder: No - Musculoskeletal/Rheumatological Hx Arthritis: Yes Hx Falls: No - Gastrointestinal Hx Gastrointestinal Disorders: Yes Other/Comment: HEMMORRHOIDS - Genitourinary/Gynecological Hx Genitourinary Disorders: No Hx Urinary Tract Infection: Yes - Psychiatric Hx Psychophysiologic Disorder: No Hx Substance Use: No - Surgical History Hx Cholecystectomy: Yes Other/Comment: HEMORRHOIDECTOMY,HYSTERECTOMY - Anesthesia Hx Anesthesia: Yes Hx Anesthesia Reactions: No Hx Malignant Hyperthermia: No - Suicidal Assessment Feels Threatened In Home Enviroment: No Family/Social History - Physician Review Nursing Documentation Reviewed: Yes Family/Social History: Unknown Family HX Smoking Status: Never Smoked Hx Alcohol Use: No Hx Substance Use: No Hx Substance Use Treatment: No Allergies/Home Meds Allergies/Adverse Reactions: Allergies No Known Allergies Allergy (Verified 08/17/17 17:51) Home Medications: Home Meds Medication Instructions Recorded Confirmed Atorvastatin Calcium [Lipitor] 10 mg PO DAILY 05/11/12 08/17/17 Warfarin [Coumadin] 2 mg PO 1800 05/11/12 08/17/17 Digoxin [Lanoxin] 125 mcg PO DAILY 08/17/17 08/17/17 Magnesium Oxide [Mag-Ox] 400 mg PO DAILY 08/17/17 08/17/17 Metoprolol Tartrate [Lopressor] 50 mg PO BID 08/17/17 08/17/17 Potassium Chloride [Klor-Con M20] 20 meq PO DAILY 08/17/17 08/17/17 Review of Systems - Physician Review All systems were reviewed & negative as marked: Yes - Review of Systems Constitutional: Normal Eyes: Normal ENT: Normal Respiratory: SOB. absent: Cough, Sputum Cardiovascular: Edema. absent: Chest Pain, Palpitations, Calf Pain Gastrointestinal: Normal Genitourinary Female: Normal Musculoskeletal: Normal Skin: Normal Neurological: Normal Endocrine: Normal Hemo/Lymphatic: Normal Psychiatric: Normal Physical Exam Vital Signs Reviewed: Yes Vital Signs Temp Pulse Resp BP Pulse Ox 08/17/17 15:25 30 L 08/17/17 13:00 97.9 F 32 L 18 101/43 L 97 08/17/17 11:55 59 L 18 118/59 L 96 08/17/17 11:26 118/59 L 08/17/17 10:08 97.6 F 66 29 H 133/62 93 L Temperature: Afebrile Blood Pressure: Normal Pulse: Regular Respiratory Rate: Tachypneic Appearance: Positive for: Well-Appearing, Non-Toxic, Comfortable Pain Distress: None Mental Status: Positive for: Alert and Oriented X 3 - Systems Exam Head: Present: Atraumatic, Normocephalic Pupils: Present: PERRL Extroacular Muscles: Present: EOMI Conjunctiva: Present: Normal Mouth: Present: Moist Mucous Membranes Neck: Present: Normal Range of Motion Respiratory/Chest: Present: Clear to Auscultation, Good Air Exchange, Other ( Mild crackles at the bases). No: Respiratory Distress, Accessory Muscle Use, Wheezes, Decreased Breath Sounds, Rales, Retracting, Rhonchi Cardiovascular: Present: Regular Rate and Rhythm, Normal S1, S2. No: Murmurs Abdomen: Present: Normal Bowel Sounds. No: Tenderness, Distention, Peritoneal Signs Back: Present: Normal Inspection Upper Extremity: Present: Normal Inspection. No: Cyanosis, Edema Lower Extremity: Present: Edema (4+ bipedal edema). No: CALF TENDERNESS Neurological: Present: GCS=15, CN II-XII Intact, Speech Normal Skin: Present: Warm, Dry, Normal Color. No: Rashes Psychiatric: Present: Alert, Oriented x 3, Normal Insight, Normal Concentration Medical Decision Making ED Course and Treatment: 08/17/17 19:12 PT in ED for stated history. Her BP was stable in ED. Her HR goes between 30 to 124. Her lab was reviewed with normal digoxin level. Lactates was elevated and BNP was elevated. PT is however not in sepsis as she had no leukocytosis. Pt was sent to ED by Dr. Etienne. Case was DW Dr. Ruggiero and he accepted pt for admission. PT was admitted for sick sinus syndrome and CHF exacerbation EKG A flutter; RBBB @ 36bpm 08/17/17 19:20 Pt was seen by the [employer] Operator, Dr. Hawkins in ED at the bedside. He states pt should be admitted to to Tele. - Lab Interpretations Lab Results: 08/17/17 10:08 08/17/17 10:08 Lab Results 08/17/17 10:08: Digoxin 1.1 08/17/17 10:08: Sodium 140, Chloride 98, Potassium 3.8, Carbon Dioxide 31, Anion Gap 15, BUN 19, Creatinine 0.8, Est GFR ( Amer) > 60, Est GFR (Non- Af Amer) > 60, Random Glucose 143 H, Calcium 9.5, Total Bilirubin 1.3, AST 33, ALT 37, Alkaline Phosphatase 76, Lactate Dehydrogenase 468, Total Creatine Kinase 35, Troponin I < 0.01 D, NT-Pro-B Natriuret Pep 942 H, Total Protein 7.1 , Albumin 3.9, Globulin 3.1, Albumin/Globulin Ratio 1.3 08/17/17 10:08: pO2 34, VBG pH 7.30 L, VBG pCO2 64.0 H, VBG HCO3 31.5 H, VBG Total CO2 33.5 H, VBG O2 Sat (Calc) 67.7 H, VBG Base Excess 3.2 H, VBG Potassium 3.7, Sodium 138.0, Chloride 99.0, Glucose 146 H, Lactate 2.5 H, FiO2 21.0, Venous Blood Potassium 3.7 08/17/17 10:08: PT 33.5 H, INR 2.85 H, APTT 50.6 H 08/17/17 10:08: WBC 8.7, RBC 4.57, Hgb 13.9 D, Hct 42.7, MCV 93.4 D, MCH 30.4 , MCHC 32.6, RDW 15.3 H, Plt Count 213, MPV 11.0, Gran % 67.1, Lymph % (Auto) 26.2, [place] % (Auto) 5.5, Eos % (Auto) 1.0 L, Baso % (Auto) 0.2, Gran # 5.86, Lymph # (Auto) 2.3, [place] # (Auto) 0.5, Eos # (Auto) 0.1, Baso # (Auto) 0.02 - RAD Interpretation Radiology Orders: 08/17/17 10:15 CHEST PORTABLE [RAD] Stat - Medication Orders Current Medication Orders: Atorvastatin Calcium (Lipitor) 10 mg PO HS [facility] Spironolactone (Aldactone) 25 mg PO DAILY JOAO Last Admin: 08/17/17 11:26 Dose: 25 mg Warfarin Sodium (Coumadin) 2 mg PO 1800 [facility] PRN Reason: Protocol Last Admin: 08/17/17 18:00 Dose: Discontinued Medications Furosemide (Lasix) 40 mg IVP STAT STA Stop: 08/17/17 11:10 Last Admin: 08/17/17 11:26 Dose: 40 mg MAR Blood Pressure Document 08/17/17 11:26 LA (Rec: 08/17/17 11:35 ROBIN HOFFMANNPC) Blood Pressure Blood Pressure (100/60-150/90) 118/59 IVP Administration Document 08/17/17 11:26 LA (Rec: 08/17/17 11:35 ROBIN HOFFMANNPC) Charges for Administration # of IVP Administrations 1 Disposition/Present on Arrival - Present on Arrival Any Indicators Present on Arrival: No History of DVT/PE: No History of Uncontrolled Diabetes: No Urinary Catheter: No History of Decub. Ulcer: No History Surgical Site Infection Following: None - Disposition Have Diagnosis and Disposition been Completed?: Yes Diagnosis: Sick sinus syndrome, CHF (congestive heart failure) Disposition: HOSPITALIZED Disposition Time: 11:30 Condition: FAIR
[2017-08-17 10:38] LABS: ALB/GLOB RATIO 1.3 (1.1-1.8); ALBUMIN 3.9 g/dL (3.0-4.8); ALT/SGPT 37 U/L (7-56); AST/SGOT 33 U/L (14-36); BLOOD UREA NITROGEN 19 mg/dL (7-21); CALCIUM 9.5 mg/dL (8.4-10.5); GFR AFRICAN-AMERICAN > 60; GFR NON-AFRICAN AMERICAN > 60
[2017-08-17 10:44] LABS: INR 2.85 (0.93-1.08); PARTIAL THROMBOPLASTIN TIME 50.6 Seconds (25.1-36.5); PROTHROMBIN TIME 33.5 SECONDS (9.4-12.5)
[2017-08-17 10:49] LABS: B-TYPE NATRIURETIC PEPTIDE 942 pg/mL (0-450); TROPONIN I < 0.01 ng/mL
--- NOTE | 2017-08-17 10:55 | RAD ---
HISTORY: SOB COMPARISON: 06/16/2017 FINDINGS: LUNGS: No active pulmonary disease. PLEURA: No significant pleural effusion identified, no pneumothorax apparent. CARDIOVASCULAR: Moderate cardiomegaly OSSEOUS STRUCTURES: No significant abnormalities. VISUALIZED UPPER ABDOMEN: Normal. OTHER FINDINGS: None. IMPRESSION: No active disease.
[2017-08-17 12:28] LABS: URINE BILIRUBIN NEGATIVE (NEGATIVE); URINE BLOOD NEGATIVE (NEGATIVE); URINE GLUCOSE (UA) NEGATIVE (NEGATIVE); URINE LEUKOCYTE ESTERASE NEGATIVE Leu/uL (NEGATIVE); URINE PROTEIN 30 mg/dL (<30 mg/dL); URINE UROBILINOGEN 0.2 E.U./dL (<1 E.U./dL)
[2017-08-17 12:45] LABS: URINE APPEARANCE CLEAR (CLEAR); URINE COLOR YELLOW (YELLOW)
[2017-08-17 12:47] LABS: URINE RBC 0 - 2 /hpf (0-2)
[2017-08-17 12:48] LABS: URINE AMORPHOUS SEDIMENT FEW; URINE BACTERIA MOD (NEG); URINE COARSE GRANULAR CAST TRACE /hpf (0-2)
--- NOTE | 2017-08-17 13:28 | CP.PCM.CON ---
History of Present Illness - History of Present Illness History of Present Illness: Critical Care Consult Note HPI Patient is 82yo female with PMhx of osteoporosis, Afib on Coumadin, and digoxin/ BB, presents with hypotension in PMDs office, and bradycardia. Pt reports she had some SOB, without cp, palpitations, COLON, dizziness. Here in the ER SBP ranging 120-130s, HR 50-80s, Afib. No major complaints. PMHx as above PSHx as above Allergies NKDA Meds as per EMR ROS as above FHx NC Review of Systems - Review of Systems Review of Systems: as per HPI Past Patient History - Infectious Disease Hx of Infectious Diseases: None - Tetanus Immunizations Tetanus Immunization: Unknown - Past Medical History & Family History Past Medical History?: Yes - Past Social History Smoking Status: Never Smoked - CARDIAC Hx Cardiac Disorders: Yes Hx Hypertension: Yes - PULMONARY Hx Respiratory Disorders: No - NEUROLOGICAL Hx Neurological Disorder: No - HEENT Hx HEENT Problems: Yes Other/Comment: glasses - RENAL Hx Chronic Kidney Disease: No - ENDOCRINE/METABOLIC Hx Endocrine Disorders: No - HEMATOLOGICAL/ONCOLOGICAL Hx Blood Disorders: No - INTEGUMENTARY Hx Dermatological Problems: No - MUSCULOSKELETAL/RHEUMATOLOGICAL Hx Arthritis: Yes Hx Falls: No - GASTROINTESTINAL Hx Gastrointestinal Disorders: Yes Other/Comment: HEMMORRHOIDS - GENITOURINARY/GYNECOLOGICAL Hx Genitourinary Disorders: No Hx Urinary Tract Infection: Yes - PSYCHIATRIC Hx Psychophysiologic Disorder: No Hx Substance Use: No - SURGICAL HISTORY Hx Cholecystectomy: Yes Other/Comment: HEMORRHOIDECTOMY,HYSTERECTOMY - ANESTHESIA Hx Anesthesia: Yes Hx Anesthesia Reactions: No Hx Malignant Hyperthermia: No Meds Allergies/Adverse Reactions: Allergies Allergy/AdvReac Type Severity Reaction Status Date / Time No Known Allergies Allergy Verified 08/17/17 10:02 - Medications Medications: Current Medications Atorvastatin Calcium (Lipitor) 10 mg PO HS [facility] Spironolactone (Aldactone) 25 mg PO DAILY [facility] Last Admin: 08/17/17 11:26 Dose: 25 mg Warfarin Sodium (Coumadin) 2 mg PO 1800 [facility] PRN Reason: Protocol Physical Exam - Constitutional Appears: Non-toxic, No Acute Distress - Eye Exam Eye Exam: Normal appearance - ENT Exam ENT Exam: Mucous Membranes Moist - Neck Exam Neck exam: Positive for: Full Rom - Respiratory Exam Respiratory Exam: Clear to Auscultation Bilateral, NORMAL BREATHING PATTERN - Cardiovascular Exam Cardiovascular Exam: Irregular Rhythm, +S1, +S2 - GI/Abdominal Exam GI & Abdominal Exam: Normal Bowel Sounds, Soft - Extremities Exam Additional comments: 3+ edema Results - Vital Signs Recent Vital Signs: Last Vital Signs Temp 97.6 F 08/17/17 10:08 Pulse 59 L 08/17/17 11:55 Resp 18 08/17/17 11:55 BP 118/59 L 08/17/17 11:55 Pulse Ox 96 08/17/17 11:55 - Labs Result Diagrams: 08/17/17 10:08 08/17/17 10:08 Labs: Laboratory Results - last 24 hr 08/17/17 11:50 Urine Color Yellow Urine Appearance Clear Urine pH 6.0 Ur Specific [place] 1.010 Urine Protein 30 H Urine Glucose (UA) Negative Urine Ketones Negative Urine Blood Negative Urine Nitrate Negative Urine Bilirubin Negative Urine Urobilinogen 0.2 Ur Leukocyte Esterase Negative Urine RBC 0 - 2 Urine WBC 1 - 3 Ur Epithelial Cells 3 - 4 Amorphous Sediment Few Urine Bacteria Mod Coarse Granular Casts Trace H Assessment & Plan - Assessment and Plan (Free Text) Assessment: 82yo female with transient bradycardia - currently afebrile, HD stable, comfortable, in NAD, reports no major complaints - HR 50-70s, Afib - BP 130/81 - labs reviewed Recommend: - supp o2 as needed - panculture, UCx, BCx, procal - Hold BB - Hold Digoxin - check Digoxin level - Lasix IV diuresis - monitor on telemetry
[2017-08-17 20:28] LABS: VENOUS BLOOD GAS BASE EXCESS 12.1 mmol/L (0.0-2.0); VENOUS BLOOD GAS PO2 29 mm/Hg (30-55); VENOUS BLOOD PH 7.47 (7.32-7.43)
[2017-08-17] MEDS ORDERED: Influenza Vaccine 60 mcg/0.5 mL SYR (4YR UP) IM ONE (21:53)
[2017-08-17] MEDS ORDERED: Pneumococcal 23-Valent Vaccine IM ONE (21:53)
--- NOTE | 2017-08-18 09:18 | CON ---
DATE: 08/18/2017 INDICATIONS: Atrial flutter with slow ventricular rate. HISTORY OF PRESENT ILLNESS: This is an 82-year-old woman known to me, admitted yesterday through the emergency room after she was seen in Dr. De La Garza's office, not feeling well, shortness of breath, vague symptoms and slow heart rate and low blood pressure. She was sent to the emergency room, subsequently admitted to telemetry where she is resting comfortably in bed with her daughter at the bedside. Monitoring shows atrial flutter with heart rate in the 30s and 40s. This is new. She has had chronic atrial fibrillation in the past. She has been on digoxin and metoprolol for rate control and warfarin for anticoagulation. She felt weak and unwell for a few hours. There was no definite chest pain. There was some shortness of breath. There was no syncope, palpitations, edema, claudication, fever, chills, cough, sputum production or hemoptysis. There was no abdominal pain, nausea, vomiting, diarrhea, constipation, or melena. PAST MEDICAL HISTORY: Notable for chronic AFib, hypertension, hyperlipidemia, osteoporosis, arthritis. PAST SURGICAL HISTORY: Including cholecystectomy, hemorrhoidectomy and hysterectomy. She has had UTIs. There is no history of rheumatic fever, myocardial infarction, angina, congestive heart failure, stroke, TIA, diabetes or gout. MEDICATIONS: At the time of admission include spironolactone, warfarin, digoxin, potassium chloride, Lipitor, metoprolol, magnesium supplementation. ALLERGIES: THERE WERE NO KNOWN MEDICATION ALLERGIES. SOCIAL HISTORY: She lives at home. She is ambulatory. She does not smoke cigarettes or drink alcohol significantly. Her daughter assists her. FAMILY HISTORY: Noncontributory. REVIEW OF SYSTEMS: A 10-review of systems otherwise is unremarkable except as noted above. PHYSICAL EXAMINATION GENERAL: She is a well-developed woman, lying in bed, in no acute distress. VITAL SIGNS: She is in atrial flutter with heart rate in the 30s and low 40s. Afebrile. Blood pressure 99/77, respirations 18, O2 sat 95% to 97% on nasal cannula. HEENT: Reveals no neck vein distention, thyromegaly, carotid bruit. Mucous membranes moist. Conjunctivae pink. NECK: Supple. LUNGS: Lung forman, clear throughout. HEART: Examination of the heart revealed normal first and second heart sounds with an irregular slow heart rate. There is soft systolic murmur along the left sternal border and in the aortic space. ABDOMEN: Soft. Bowel sounds present. No mass, organomegaly, tenderness, rebound, guarding, CVA tenderness or palpable abdominal aortic aneurysm. EXTREMITIES: Revealed no cyanosis or clubbing. There was mild ankle and amin edema, right greater than left. NEUROLOGIC: She is awake, alert and oriented. SKIN: Warm and dry. No rash or cellulitis. PSYCHIATRIC: Normal as to mood and affect. LABORATORY AND IMAGING: EKG demonstrated atrial flutter, right bundle branch block, left anterior hemiblock, heart rate 36, nonspecific ST-wave changes. A chest x-ray reveled no active disease. CBC is unremarkable. PT 33.5, INR 2.8, and PTT 50.6. Blood gases are noted. Electrolytes, BUN, creatinine, blood sugar, LFTs, all unremarkable. CK 35. Troponin less than 0.01. BNP 942. Urinalysis is unremarkable. Digoxin level is 1.1. IMPRESSION: Devika Hernandez is an 82-year-old woman with chronic atrial fibrillation who presents with a short history of not feeling well with a slow pulse, atrial flutter with slow ventricular response, hypotension, whose symptoms have improved on telemetry while she is at bed rest. At this time, I agree with plans. Digoxin and Lopressor are on hold. I would also hold warfarin pending the possibility of permanent pacemaker implantation. As her INR gets down to below 2, we will use a parenteral agent to bridge to permanent pacemaker if that is necessary. I will review her old records. She has a recent June admission with hypokalemia and hypomagnesemia noted during that admission. An echocardiogram demonstrated normal left ventricular function with mild aortic stenosis, and mild mitral regurgitation. We will monitor I's and O's. She can be out of bed to a chair, but should be assisted with all ambulation since she is a fall risk. She has been cultured. She will get spironolactone and Lipitor. I will follow along with you. I will make additional recommendations based on her clinical course. I have spoken with her daughter at the bedside this morning. Kirit Rodriguez MD MTDKraig
--- NOTE | 2017-08-18 10:12 | CARD ---
APPROVED REPORT EKG Measurement Heart [id number] <Conclusion> Atrial flutter with slow VR, new Right bundle branch block Left anterior fascicular block Bifascicular block NSSTW changes
[2017-08-18] MEDS ORDERED: Alum-Mag Hydrox-Simethicone Susp (30 mL) PO ONE (13:37)
--- NOTE | 2017-08-18 22:42 | HP ---
CHIEF COMPLAINT AND HISTORY OF PRESENT ILLNESS: This is an 82-year-old female who is coming in to the hospital with complaints of shortness of breath. She says that the shortness of breath worsens when she climbs stairs. She had gone to a doctor's office, Dr. De La Garza for followup and was found to be short of breath with lower extremity edema. She was advised to go to the ER for further evaluation. The patient was found to be in AFib. She was hypotensive and bradycardic. This was in the ER. The patient was not complaining of any chest pain. No abdominal pain. No back pain. No dysuria or frequency. No nocturia. No weakness in the arms or the legs. No back pain. REVIEW OF SYMPTOMS: All other review of symptoms were negative except what is mentioned. ALLERGIES: NO KNOWN DRUG ALLERGIES. HOME MEDICATIONS: Lipitor, Coumadin, Lanoxin, magnesium, Lopressor, Klor-Con. Medications that have been reviewed on the [facility]. PAST MEDICAL HISTORY: COPD, CHF, UTI, osteoarthritis, compression fracture. PAST SURGICAL HISTORY: Hemorrhoidectomy, hysterectomy. SOCIAL HISTORY: She does not smoke, drink or use drugs. FAMILY HISTORY: Noncontributory. PHYSICAL EXAMINATION: VITAL SIGNS: Temperature is 97.6, pulse is in the 30s to 40s, blood pressure is 90/50, respirations 18, O2 saturation 96%. Height is 5 feet 1. Weight is 202 pounds. BMI is 38.2. GENERAL: The patient lying in bed, uncomfortable, and in no acute distress. HEENT: Atraumatic and normocephalic. Anicteric sclerae. Moist mucosa. [place] conjunctivae. No oral lesions. NECK: No JVD, anterior and posterior adenopathy, thyromegaly, or bruits. CARDIOVASCULAR: S1 and S2 regular. No murmur, rubs, or gallop. LUNGS: Clear to auscultation bilaterally. No wheezes, rales, or rhonchi. ABDOMEN: Bowel sounds are positive. Soft, nontender and nondistended. No hepatosplenomegaly. No rebound and no guarding EXTREMITIES: No cyanosis, clubbing. Lower extremities, 1+ edema. NEUROLOGIC: No facial asymmetry. Tongue is midline. No uvula deviation. Power is 5/5 upper extremity and lower extremity. Sensation intact in upper extremity and lower extremity. PSYCHIATRIC: She is awake, alert and oriented x3. No anxiety or depression. She has normal affect. GENITOURINARY: No CVA tenderness. VASCULAR: 2+ pulses in the carotid pulses and pedal pulses. SKIN: No erythema or nodules SPINE: Shows normal curvature. LABORATORY DATA: White count of 8.7, hemoglobin is 13.9. INR is 2.85. Chemistry shows a creatinine of 0.8, albumin is 3.9. Urine shows ketones are negative, blood is negative, nitrites are negative. Toxicology showed digoxin is 1.1. Chest x-ray done shows no active disease. EKG done shows atrial flutter with slow ventricular rate of 36. Right bundle-branch block. ASSESSMENT: 1. Bradycardia with chronic atrial fibrillation, on anticoagulation. 2. Hypotension. 3. Lower extremity edema. 4. Congestive heart failure secondary to systolic dysfunction. 5. Dyslipidemia. 6. Osteoarthritis. 7. Chronic obstructive pulmonary disease, stable. PLAN: The patient is currently comfortable. She is admitted to the hospital because of the bradycardia. She denies any symptoms. The patient's digoxin and metoprolol have been placed on hold. She is seen by Dr. Rodriguez. The patient will continue on Lipitor for dyslipidemia. I will await further input from the specialist. Coumadin will be on hold. Jw Ruggiero MD
--- NOTE | 2017-08-18 23:07 | US ---
HISTORY: Leg pain and swelling. Evaluate for DVT PHYSICIAN(S): Sharath Rodriguez MD. TECHNIQUE: Duplex sonography and color-flow Doppler with graded compression were used to evaluate the deep venous systems of both lower extremities. The exam is limited by body habitus and edema. FINDINGS: The visualized deep venous systems of both lower extremities are sonographically normal and compressible. Normal wave forms and augmentation are seen. There is no sonographic evidence for deep venous thrombosis in the visualized segments of both lower extremities. IMPRESSION: No sonographic evidence for deep venous thrombosis in the visualized segments of both lower extremities.
[2017-08-19 07:16] LABS: INR 2.3 (0.93-1.08); PROTHROMBIN TIME 26.9 SECONDS (9.4-12.5)
--- NOTE | 2017-08-19 08:19 | CP.PCM.PN ---
Subjective - Date & Time of Evaluation Date of Evaluation: 08/19/17 Time of Evaluation: 07:00 - Subjective Subjective: Stable on 3R with family at the bedside. She feels better. No CP, SO dizziness. She ambulated with family assistance yesterday without sxs. V/S noted. A. flutter with VR 30s to 60s now PE: Lungs: clear Cor.: irreg., S1S2 Abd.: soft Ext.: no edema Neuro.: alert I/O= 660/200 recorded Labs noted: trops neg X 2, INR = 2.3 today LE thalia Dopplers: No DVT BC X2 NG at 24 hrs. Objective - Vital Signs/Intake and Output Vital Signs (last 24 hours): Temp Pulse Resp BP Pulse Ox 98.2 F 61 20 153/82 H 97 08/19/17 06:00 08/19/17 06:00 08/19/17 06:00 08/19/17 06:00 08/19/17 06:00 Intake and Output: 08/19/17 08/19/17 06:59 18:59 Intake Total 660 Output Total 200 Balance 460 - Medications Medications: Current Medications Atorvastatin Calcium (Lipitor) 10 mg PO HS [facility] Last Admin: 08/18/17 22:17 Dose: 10 mg Spironolactone (Aldactone) 25 mg PO DAILY [facility] Last Admin: 08/18/17 10:34 Dose: 25 mg Warfarin Sodium (Coumadin) 2 mg PO 1800 [facility] PRN Reason: Protocol Last Admin: 08/17/17 18:00 Dose: Not Given - Labs Labs: PT 26.9 SECONDS (9.4-12.5) H 08/19/17 06:00 INR 2.30 (0.93-1.08) H 08/19/17 06:00 APTT 50.6 Seconds (25.1-36.5) H 08/17/17 10:08 Assessment and Plan - Assessment and Plan (Free Text) Assessment: Initial vague sxs, not feeling well with slow pulse and hypotension A. Flutter with slow VR (off digoxin and metoprolol since admission) Chronic AF on warfarin HBP Arthritis Surgeries: GB, Hernia, Hysterectomy Plan: Continue tel Possible PPM. Possible EP evaluation. Hold warfarin for now and monitor INR daily OOB. Ambulate only with assistance. Fall Risk. Case D/W daughters at the bedside today.
[2017-08-19] MEDS ORDERED: Alum-Mag Hydrox-Simethicone Susp (30 mL) PO ONE ×2 (10:00)
--- NOTE | 2017-08-19 10:27 | CARD ---
APPROVED REPORT EKG Measurement Heart [id number] <Conclusion> A. Flutter Slow VR PVCs RBBB LAHB STTW changes No change
--- NOTE | 2017-08-19 15:16 | PN ---
DATE: 08/19/2017 SUBJECTIVE: The patient has no complaints of any chest pain. No shortness of breath. No headaches or dizziness. PHYSICAL EXAMINATION VITAL SIGNS: Temperature is 98.2, pulse is 61, blood pressure is 153/82. GENERAL: The patient is lying in bed, flat, comfortable. HEENT: No oral lesion. Anicteric sclerae. Moist mucosa. NECK: No JVD, adenopathy, or thyromegaly. CARDIOVASCULAR: S1 and S2, regular. No murmurs, rubs, or gallops. LUNGS: Clear to auscultation bilaterally. No wheeze, rales, or rhonchi. ABDOMEN: Bowel sounds are positive, soft, nontender, and nondistended. EXTREMITIES: No cyanosis, clubbing, or edema. LABORATORY DATA: White count of 8.7, hemoglobin 13.9, creatinine is 0.8. ASSESSMENT: 1. Bradycardia with chronic atrial fibrillation, on anticoagulation. 2. Constipation. 3. Lower extremity edema. 4. Congestive heart failure secondary to systolic dysfunction. 5. Hypotension, improved. 6. Dyslipidemia. 7. Osteoarthritis. 8. Chronic obstructive pulmonary disease, stable. PLAN: The patient does have episode of bradycardia, it goes into the high 30's and low 40's at times. The patient is being followed by Dr. Rodriguez. Now, the patient is on Lipitor for dyslipidemia. She is also asking for MiraLax, which I will continue. Patient may need pacemaker. We will wait for further input from Cardiology; the patient's INR is 2.3 today. Patient is on a heart-healthy diet. Jw Ruggiero MD
[2017-08-19 15:37] LABS: BASO # 0.02 K/mm3 (0.0-2.0); BASO % 0.2 % (0.0-3.0); EOS % 0.2 % (1.5-5.0); GRAN # 7.97 (1.4-6.5); GRAN % 81.2 % (50.0-68.0); HEMOGLOBIN 13.1 g/dL (12.0-16.0); LYMPH # 1.2 (1.2-3.4); LYMPH % 12.1 % (22.0-35.0); MEAN CELL VOLUME 92.5 fl (80.0-105.0); MEAN CORPUSCULAR HEMOGLOBIN 30.8 pg (25.0-35.0); MEAN CORPUSCULAR HGB CONC 33.2 g/dl (31.0-37.0); MEAN PLATELET VOLUME 10.8 fl (7.0-11.0); MONO # 0.6 (0.1-0.6); MONO % 6.3 % (1.0-6.0); RBC 4.26 10^6/uL (3.5-6.1); RED CELL DISTRIBUTION WIDTH 15.2 % (11.5-14.5); WHITE BLOOD COUNT 9.8 10^3/ul (4.5-11.0)
[2017-08-19 16:07] LABS: TROPONIN I 0.03 ng/mL
[2017-08-19 16:11] LABS: ALB/GLOB RATIO 1.2 (1.1-1.8); ALBUMIN 3.6 g/dL (3.0-4.8); ALT/SGPT 30 U/L (7-56); AST/SGOT 23 U/L (14-36); BLOOD UREA NITROGEN 18 mg/dL (7-21); CALCIUM 9.5 mg/dL (8.4-10.5); GFR AFRICAN-AMERICAN > 60; GFR NON-AFRICAN AMERICAN > 60
--- NOTE | 2017-08-19 19:05 | CP.PCM.PN ---
Subjective - Date & Time of Evaluation Date of Evaluation: 08/19/17 Time of Evaluation: 18:50 - Subjective Subjective: Patient is 82yo female with PMhx of osteoporosis, Afib on Coumadin, and digoxin/ BB, presented with hypotension in PMDs office, and bradycardia. Patient was on tele this evening, when HR was 30s, pulse was absent as per RN, code blue called , chest compressions started, after 1 minute, ROSC achieved, patient awake, alert, in mild distress, not intubated, no meds given yet. BP 160/100, HR 80-90s , afib, Sat 97% on NRB. Objective - Vital Signs/Intake and Output Vital Signs (last 24 hours): Temp Pulse Resp BP Pulse Ox 97.8 F 36 L 16 133/54 L 97 08/19/17 18:17 08/19/17 18:17 08/19/17 18:17 08/19/17 18:17 08/19/17 18:17 Intake and Output: 08/19/17 08/19/17 06:59 18:59 Intake Total 660 600 Output Total 200 Balance 460 600 - Medications Medications: Current Medications Atorvastatin Calcium (Lipitor) 10 mg PO HS [facility] Last Admin: 08/18/17 22:17 Dose: 10 mg Spironolactone (Aldactone) 25 mg PO DAILY [facility] Last Admin: 08/19/17 09:55 Dose: 25 mg Warfarin Sodium (Coumadin) 2 mg PO 1800 [facility] PRN Reason: Protocol Last Admin: 08/17/17 18:00 Dose: Not Given - Labs Labs: 08/19/17 13:56 08/19/17 14:20 PT 26.9 SECONDS (9.4-12.5) H 08/19/17 06:00 INR 2.30 (0.93-1.08) H 08/19/17 06:00 APTT 50.6 Seconds (25.1-36.5) H 08/17/17 10:08 - Constitutional Appears: No Acute Distress - Eye Exam Eye Exam: Normal appearance - ENT Exam ENT Exam: Mucous Membranes Moist - Respiratory Exam Respiratory Exam: Clear to Ausculation Bilateral, NORMAL BREATHING PATTERN - Cardiovascular Exam Cardiovascular Exam: Bradycardia, Irregular Rhythm, +S1, +S2 - GI/Abdominal Exam GI & Abdominal Exam: Soft, Normal Bowel Sounds - Extremities Exam Extremities Exam: Full ROM - Neurological Exam Neurological Exam: Alert, Awake Assessment and Plan - Assessment and Plan (Free Text) Assessment: 82yo female with symptomatic bradycardia, cardiac arrest - unclear if actually lost pulse, as ROSC achieved in <1 minute, with no meds given - HR 80-90s Afib - LABS pending - Start on Dopamine 5mcg/kg/min - IVF hydration - NPO - HOLD coumadin - EP follow up - ECHO - EKG - GI ppx - DVT ppx - Monitor in MICU
--- NOTE | 2017-08-19 19:26 | PCM.RRT ---
<Anish Snow - Last Filed: 08/19/17 19:23> SEARCH ENGINE MARKETING STRATEGIST Nurse Assessment - Situation Date: 08/19/17 Time SEARCH ENGINE MARKETING STRATEGIST was called: 18:42 SEARCH ENGINE MARKETING STRATEGIST Responder Arrival Time: 18:43 SEARCH ENGINE MARKETING STRATEGIST Location:: [address] [place] [address] Room Number: 377-2 SEARCH ENGINE MARKETING STRATEGIST Reason for Call: Change in Mental Status SEARCH ENGINE MARKETING STRATEGIST Called By: RN - IV IV Inserted during SEARCH ENGINE MARKETING STRATEGIST?: No - Respiratory Oxygen Delivery Method: Non Rebreather @% Received Nebulizer Treatments:: No Was the Patient Ventilated with Bag/Mask 100% O2?: Yes Was the Patient Intubated?: No Was the Patient Placed on a Ventilator?: No - Diagnostic Test Ordered EKG: Yes Chest X-Ray: Yes CT Scan: No - Stat Labs Ordered SEARCH ENGINE MARKETING STRATEGIST Stat Labs Ordered: CBC, BMP CPR started during SEARCH ENGINE MARKETING STRATEGIST?: Yes - Vital Signs Vital Sign: Rapid Response Vital Sign Blood Pressure 162/90 Pulse Rate 128 - Finger Stick Blood Glucose Finger Stick Blood Glucose: 133 - [place] Coma Scale Coma Scale Eye Opening: No response Coma Scale Motor: None Coma Scale Verbal: No response - Vital Signs at end of SEARCH ENGINE MARKETING STRATEGIST Vital Signs at end of SEARCH ENGINE MARKETING STRATEGIST: Rapid Response End Vital Sign Blood Pressure 134/93 Pulse Rate 48 Respiratory Rate 20 - Recommendations 5) SEARCH ENGINE MARKETING STRATEGIST Level of Care Recommendations: Transfer to ICU Notifications: Attending Physician, Family or Designated Caregiver I.Reason for SEARCH ENGINE MARKETING STRATEGIST - A) Acute Change in Patient: (Select all that apply): Acute change in mental status, Acute change in heart rate less than 50 or greater than 120 Subjective: Initially, SEARCH ENGINE MARKETING STRATEGIST called for unresponsiveness, then ahsan hernandez called when patient became pulseless - Neurological Status (Select all that apply): absent: Alert, Responsive, Oriented, Verbal, Follows Commands, Weakness Other (Please specify): After code blue ended, patient was AAOx2 - Respiratory Oxygen Delivery Method: Room Air, Non Rebreather @% - Constitutional Appears: Chronically Ill - Head Head Exam: ATRAUMATIC, NORMOCEPHALIC - Eyes Eye Exam: EOMI, Normal appearance, PERRL - Cardiovascular Exam Cardiovascular Exam: Bradycardia, Tachycardia, Irregular Rhythm Additional comments: Briefly, pulseless - GI/Abdominal Exam GI & Abdominal Exam: Soft. absent: Distended, Firm, Guarding, Rigid - Neurological Exam Neurological Exam: absent: Alert, Awake - Extremities Exam Extremities Exam: Full ROM Plan - Assessment of Findings&Treatment Plan SEARCH ENGINE MARKETING STRATEGIST was called for unresponsiveness. En route to SEARCH ENGINE MARKETING STRATEGIST, code blue was called when patient was noted to be pulseless. Patient was sitting upright in a chair, and was moved to the bed to start CPR and ACLS protocol. Chest compressions were done for approximately 30-60 seconds, when patient spontaneously opened her eyes and started breathing. Pulse check and monitor confirmed ROSC. Patient continued to have an irregularly irregular rhythm, at times bradycardic and tachycardic. Patient did not require epinephrine or atropine. STAT labs, EKG and CXR were ordered, and patient was transferred to ICU for further monitoring , and placement of an external pacemaker. <Alma Delia Montgomery - Last Filed: 08/20/17 13:54> SEARCH ENGINE MARKETING STRATEGIST Nurse Assessment - Vital Signs Vital Sign: Rapid Response Vital Sign Blood Pressure 162/90 Pulse Rate 128 - Vital Signs at end of SEARCH ENGINE MARKETING STRATEGIST Vital Signs at end of SEARCH ENGINE MARKETING STRATEGIST: Rapid Response End Vital Sign Blood Pressure 134/93 Pulse Rate 48 Respiratory Rate 20 Attending/Attestation - Attestation I have personally seen and examined this patient.: Yes I have fully participated in the care of the patient.: Yes I have reviewed all pertinent clinical information, including history, physical exam and plan: Yes Notes (Text): 08/20/17 13:51 attending note; Patient seen examined during rapid response. Initially rapid response was called then patient briefly passed out without a pulse. CPR was started immediately. Patient regained pulse and circulation within a minute. patient with a history of tachy shawn Syndrome. Patient will be transferred to ICU for close monitoring. Case discussed with ICU attending in detail. Case discussed with PMD by resident. Follow up with cardiology for further plan. lab work and EKG ordered. labs to be followed up by ICu team. 08/20/17 13:54
[2017-08-19 19:35] LABS: BASO # 0.04 K/mm3 (0.0-2.0); BASO % 0.3 % (0.0-3.0); GRAN # 9.88 (1.4-6.5); GRAN % 64.9 % (50.0-68.0); HEMOGLOBIN 14.2 g/dL (12.0-16.0); LYMPH # 4.4 (1.2-3.4); MEAN CELL VOLUME 92.4 fl (80.0-105.0); MEAN CORPUSCULAR HEMOGLOBIN 30.7 pg (25.0-35.0); MEAN CORPUSCULAR HGB CONC 33.2 g/dl (31.0-37.0); MEAN PLATELET VOLUME 10.8 fl (7.0-11.0); MONO # 0.9 (0.1-0.6); MONO % 5.8 % (1.0-6.0); RBC 4.63 10^6/uL (3.5-6.1); RED CELL DISTRIBUTION WIDTH 15.2 % (11.5-14.5); WHITE BLOOD COUNT 15.2 10^3/ul (4.5-11.0)
[2017-08-19] MEDS: DOPamine 400mg/250ml D5W 400 MG/250 ML BAG IV PRN (19:57)
[2017-08-19 20:00] LABS: ALB/GLOB RATIO 1.2 (1.1-1.8); ALBUMIN 4.2 g/dL (3.0-4.8); ALT/SGPT 34 U/L (7-56); AST/SGOT 32 U/L (14-36); BLOOD UREA NITROGEN 17 mg/dL (7-21); CALCIUM 9.9 mg/dL (8.4-10.5); GFR AFRICAN-AMERICAN > 60; GFR NON-AFRICAN AMERICAN 60
[2017-08-19] MEDS ORDERED: Magnesium Sulfate 2 GM in Sodium Chloride 0.9% 100 ML IVPB ONE (20:57)
[2017-08-19] MEDS: Naproxen 550 mg Tab PO PRN (21:34)
--- NOTE | 2017-08-19 21:41 | RAD ---
HISTORY: s/p code blue COMPARISON: Comparison is made with 08/17/2017 FINDINGS: LUNGS: Again seen are perihilar patchy opacities. There is interval worsening of heterogeneous opacity and infiltrate at the right lung upper lobe since the previous exam. PLEURA: No significant pleural effusion identified, no pneumothorax apparent. CARDIOVASCULAR: Cardiomegaly is again noted. OSSEOUS STRUCTURES: No significant abnormalities. VISUALIZED UPPER ABDOMEN: Normal. OTHER FINDINGS: None. IMPRESSION: Worsening right upper lobe opacity/infiltrate since the previous exam. Perihilar small patchy opacities more prominent on the right lung.
[2017-08-19] MEDS: Morphine 2 mg/ml ISec IVP PRN (23:00)
[2017-08-20] MEDS: Morphine 2 mg/ml ISec IVP PRN ×4 (06:49→20:25)
[2017-08-20 07:00] LABS: BASO # 0.01 K/mm3 (0.0-2.0); BASO % 0.1 % (0.0-3.0); GRAN # 13.11 (1.4-6.5); HEMOGLOBIN 14.6 g/dL (12.0-16.0); LYMPH # 1.3 (1.2-3.4); LYMPH % 8.2 % (22.0-35.0); MEAN CELL VOLUME 92.1 fl (80.0-105.0); MEAN CORPUSCULAR HEMOGLOBIN 30.4 pg (25.0-35.0); MEAN PLATELET VOLUME 11.2 fl (7.0-11.0); MONO % 6.7 % (1.0-6.0); RBC 4.81 10^6/uL (3.5-6.1); RED CELL DISTRIBUTION WIDTH 15.2 % (11.5-14.5); WHITE BLOOD COUNT 15.4 10^3/ul (4.5-11.0)
[2017-08-20 07:19] LABS: INR 2.01 (0.93-1.08); PROTHROMBIN TIME 23.4 SECONDS (9.4-12.5)
[2017-08-20 07:22] LABS: ALB/GLOB RATIO 1.2 (1.1-1.8); ALT/SGPT 32 U/L (7-56); AST/SGOT 46 U/L (14-36); BLOOD UREA NITROGEN 22 mg/dL (7-21); CALCIUM 9.7 mg/dL (8.4-10.5); GFR AFRICAN-AMERICAN > 60; GFR NON-AFRICAN AMERICAN 60
--- NOTE | 2017-08-20 08:30 | CP.PCM.PN ---
Subjective - Date & Time of Evaluation Date of Evaluation: 08/20/17 Time of Evaluation: 07:00 - Subjective Subjective: Events of last night noted. She became unresponsive and was found to be in rapid VT. Brief CPR done and she woke up. She was transferred to the CCU and is now in A. Flutter with slow VR. Chest wall pain from CPR. No SOB. On dopa. Got K + and Mg.++ replacement. V/S noted. A. flutter with VR 30s to 60s now PE: Lungs: clear Cor.: irreg., S1S2 Abd.: soft Ext.: no edema Neuro.: alert I/O= N/A Labs noted: WC 15,400, INR= 2.10, K+= 4.0, Mg.++ 2.0 LE thalia Dopplers: No DVT BC X2 NG at 48 hrs. ECG 08/19: A.Flutter with slow VR CXR: RUL infiltrate Objective - Vital Signs/Intake and Output Vital Signs (last 24 hours): Temp Pulse Resp BP Pulse Ox 98 F 50 L 24 116/61 95 08/20/17 00:12 08/20/17 05:00 08/20/17 05:00 08/20/17 05:00 08/20/17 05:05 Intake and Output: 08/20/17 08/20/17 06:59 18:59 Intake Total 54 Balance 54 - Medications Medications: Current Medications Atorvastatin Calcium (Lipitor) 10 mg PO HS [facility] Last Admin: 08/19/17 21:20 Dose: 10 mg Dopamine HCl/Dextrose (Dopamine 400mg/250ml D5w) 400 mg in 250 mls @ 17.18 mls/ hr IV .[id number] PRN; Protocol; 5 MCG/KG/MIN PRN Reason: TITRATE PER MD ORDER Last Titration: 08/20/17 02:10 Dose: 5 mcg/kg/min, 17.18 mls/hr Morphine Sulfate (Morphine) 1 mg IVP Q3H PRN PRN Reason: Pain, severe (8-10) Last Admin: 08/20/17 06:49 Dose: 1 mg Naproxen (Anaprox Ds) 550 mg PO Q8 PRN PRN Reason: Pain, moderate (4-7) Last Admin: 08/19/17 21:34 Dose: 550 mg Spironolactone (Aldactone) 25 mg PO DAILY [facility] Last Admin: 08/19/17 09:55 Dose: 25 mg Warfarin Sodium (Coumadin) 2 mg PO 1800 [facility] PRN Reason: Protocol Last Admin: 08/17/17 18:00 Dose: Not Given - Labs Labs: 08/20/17 06:00 08/20/17 06:00 PT 23.4 SECONDS (9.4-12.5) H 08/20/17 06:00 INR 2.01 (0.93-1.08) H 08/20/17 06:00 APTT 50.6 Seconds (25.1-36.5) H 08/17/17 10:08 Assessment and Plan - Assessment and Plan (Free Text) Assessment: Initial vague sxs, not feeling well with slow pulse and hypotension Unresponsive episode with rapid VT last night with brief CPR Chest Pain related to CPR RUL infiltrate on CXR A. Flutter with slow VR (off digoxin and metoprolol since admission) Chronic AF on warfarin HBP Arthritis Surgeries: GB, Hernia, Hysterectomy Plan: Continue CCU Possible PPM. Possible EP evaluation. Transfer to [facility] or [facility] for EP evaluation Hold warfarin for now and monitor INR daily OOB. Ambulate only with assistance. Fall Risk. Case D/W daughter at the bedside today. Case D/W EP/Dr. Khalil
[2017-08-20] MEDS ORDERED: Vancomycin 1gm in NS 250ml 1 GM/250 ML BAG IVPB STA (09:59)
[2017-08-20] MEDS: DOPamine 400mg/250ml D5W 400 MG/250 ML BAG IV PRN (10:13)
--- NOTE | 2017-08-20 10:38 | CP.CCUPN ---
<Guero Gaspar - Last Filed: 08/20/17 11:20> CCU Subjective - Physician Review Subjective (Free Text): Patient seen and evaluated bedside. No acute issues overnight. Patient says she has some pain on inspiration, and soreness in her right chest area form compressions. Patient denies shortness of breath, cough, fever, chills or any other complaints at this time. 08/20/17 10:35 Critical Care Time Spent (in minutes): 35 CCU Objective - Vital Signs / Intake & Output Vital Signs (Last 4 hours): Vital Signs Pulse Resp Pulse Ox 08/20/17 08:50 76 54 H 91 L 08/20/17 08:40 52 L 27 H 92 L 08/20/17 08:30 51 L 92 L 08/20/17 08:20 52 L 30 H 92 L 08/20/17 08:10 52 L 28 H 91 L 08/20/17 08:00 52 L 34 H 91 L 08/20/17 07:50 51 L 53 H 92 L 08/20/17 07:40 52 L 41 H 92 L 08/20/17 07:30 51 L 33 H 92 L 08/20/17 07:20 52 L 38 H 92 L 08/20/17 07:10 48 L 31 H 92 L 08/20/17 07:00 48 L 32 H 91 L 08/20/17 06:50 51 L 38 H 89 L 08/20/17 06:40 51 L 38 H 90 L Intake and Output (Last 8hrs): Intake & Output 08/19/17 08/20/17 08/20/17 22:59 06:59 14:59 Intake Total 368 46 659 Output Total 0 Balance 368 46 659 Weight 197 lb 8 oz 197 lb 8 oz Intake: IV 8 46 339 Right Antecubital 143 Oral 360 20 Tube Feeding 0 TPN/PPN 0 Blood Product 0 Lipid 0 Albumin 0 Other 300 Output: Urine 0 Urine, Voided 0 Stool 0 Urine/Stool Mix 0 Emesis 0 Oral Regurgitation 0 Other 0 Other: # Voids Urine, Voided 3 0 # Bowel Movements 3 0 - Physical Exam Head: Positive for: Atraumatic, Normocephalic Pupils: Positive for: PERRL Extroacular Muscles: Positive for: EOMI Conjunctiva: Positive for: Normal Mouth: Positive for: Moist Mucous Membranes Neck: Positive for: Normal Range of Motion Respiratory/Chest: Positive for: Respiratory Distress, Decreased Breath Sounds. Negative for: Accessory Muscle Use, Wheezes, Rales, Retracting, Rhonchi Cardiovascular: Positive for: Murmurs, Other (external pacing ) Abdomen: Positive for: Normal Bowel Sounds. Negative for: Tenderness, Distention, Peritoneal Signs Back: Positive for: Normal Inspection Upper Extremity: Positive for: Normal Inspection, Cyanosis, Edema Lower Extremity: Positive for: Edema (4+ bipedal edema). Negative for: CALF TENDERNESS Neurological: Positive for: GCS=15, CN II-XII Intact, Speech Normal Skin: Positive for: Warm, Dry, Normal Color. Negative for: Rashes Psychiatric: Positive for: Alert, Oriented x 3, Normal Insight, Normal Concentration - Medications Active Medications: Active Medications Generic Name Dose Route Start Last Admin Trade Name Freq PRN Reason Stop Dose Admin Aspirin 81 mg 08/20/17 10:00 08/20/17 10:13 Aspirin Chewable PO 81 mg DAILY JOAO Administration Atorvastatin Calcium 10 mg 08/17/17 22:00 08/19/17 21:20 Lipitor PO 10 mg HS JOAO Administration Dopamine HCl/Dextrose 400 mg in 250 mls @ 17.18 mls/hr 08/19/17 19:04 10:13 Dopamine 400mg/250ml D5w IV 5 mcg/kg/min .[id number] PRN 17.18 mls/hr TITRATE PER MD ORDER Administration Protocol 5 MCG/KG/MIN Vancomycin HCl 1 gm in 250 mls @ 167 mls/hr 08/20/17 09:59 08/20/17 10:14 Vancomycin 1gm IVPB 08/20/17 11:28 167 mls/hr STAT STA Administration Protocol Piperacillin Sod/Tazobactam Sod 100 mls @ 200 mls/hr 08/20/17 12:00 Zosyn 3.375 In Ns 100ml IVPB 08/20/17 18:29 Q6 JOAO Protocol Morphine Sulfate 1 mg 08/19/17 20:58 08/20/17 06:49 Morphine IVP 1 mg Q3H PRN Administration Pain, severe (8-10) Naproxen 550 mg 08/19/17 20:57 08/19/17 21:34 Anaprox Ds PO 550 mg Q8 PRN Administration Pain, moderate (4-7) Spironolactone 25 mg 08/17/17 11:15 08/20/17 10:13 Aldactone PO 25 mg DAILY JOAO Administration Warfarin Sodium 2 mg 08/17/17 18:00 08/17/17 18:00 Coumadin PO Not Given 1800 [facility] Protocol - Patient Studies Lab Studies: Lab Studies 08/20/17 08/20/17 08/20/17 Range/Units 06:00 06:00 06:00 WBC 15.4 H (4.5-11.0) 10^3/ul RBC 4.81 (3.5-6.1) 10^6/uL Hgb 14.6 (12.0-16.0) g/dL Hct 44.3 (36.0-48.0) % MCV 92.1 (80.0-105.0) fl MCH 30.4 (25.0-35.0) pg MCHC 33.0 (31.0-37.0) g/dl RDW 15.2 H (11.5-14.5) % Plt Count 200 (120.0-450.0) 10^3/uL MPV 11.2 H (7.0-11.0) fl Gran % 85.0 H (50.0-68.0) % Lymph % (Auto) 8.2 L (22.0-35.0) % [place] % (Auto) 6.7 H (1.0-6.0) % Eos % (Auto) 0.0 L (1.5-5.0) % Baso % (Auto) 0.1 (0.0-3.0) % Gran # 13.11 H (1.4-6.5) Lymph # (Auto) 1.3 (1.2-3.4) [place] # (Auto) 1.0 H (0.1-0.6) Eos # (Auto) 0.0 (0.0-0.7) Baso # (Auto) 0.01 (0.0-2.0) K/mm3 PT (9.4-12.5) SECONDS INR (0.93-1.08) Sodium 139 (132-148) mmol/L Potassium 4.0 (3.6-5.0) mmol/L Chloride 95 L (98-107) mmol/L Carbon Dioxide 29 (21-33) mmol/L Anion Gap 18 (10-20) BUN 22 H (7-21) mg/dL Creatinine 0.9 (0.7-1.2) mg/dl Est GFR ( Amer) > 60 Est GFR (Non-Af Amer) 60 POC Glucose (mg/dL) (65-110) mg/dL Random Glucose 169 H (70-110) mg/dL Calcium 9.7 (8.4-10.5) mg/dL Phosphorus 4.6 H (2.5-4.5) mg/dL Magnesium 2.0 (1.7-2.2) mg/dL Total Bilirubin 2.3 H (0.2-1.3) mg/dL AST 46 H D (14-36) U/L ALT 32 (7-56) U/L Alkaline Phosphatase 73 (38-126) U/L Troponin I 3.30 H* D ng/mL Total Protein 7.5 (5.8-8.3) g/dL Albumin 4.0 (3.0-4.8) g/dL Globulin 3.5 gm/dL Albumin/Globulin Ratio 1.2 (1.1-1.8) TSH 3rd Generation (0.46-4.68) mIU/mL 08/20/17 08/19/17 08/19/17 Range/Units 06:00 19:20 19:20 WBC 15.2 H D (4.5-11.0) 10^3/ul RBC 4.63 (3.5-6.1) 10^6/uL Hgb 14.2 (12.0-16.0) g/dL Hct 42.8 (36.0-48.0) % MCV 92.4 (80.0-105.0) fl MCH 30.7 (25.0-35.0) pg MCHC 33.2 (31.0-37.0) g/dl RDW 15.2 H (11.5-14.5) % Plt Count 227 (120.0-450.0) 10^3/uL MPV 10.8 (7.0-11.0) fl Gran % 64.9 (50.0-68.0) % Lymph % (Auto) 29.0 (22.0-35.0) % [place] % (Auto) 5.8 (1.0-6.0) % Eos % (Auto) 0.0 L (1.5-5.0) % Baso % (Auto) 0.3 (0.0-3.0) % Gran # 9.88 H (1.4-6.5) Lymph # (Auto) 4.4 H (1.2-3.4) [place] # (Auto) 0.9 H (0.1-0.6) Eos # (Auto) 0.0 (0.0-0.7) Baso # (Auto) 0.04 (0.0-2.0) K/mm3 PT 23.4 H (9.4-12.5) SECONDS INR 2.01 H (0.93-1.08) Sodium 139 (132-148) mmol/L Potassium 3.5 L (3.6-5.0) mmol/L Chloride 93 L (98-107) mmol/L Carbon Dioxide 30 (21-33) mmol/L Anion Gap 19 (10-20) BUN 17 (7-21) mg/dL Creatinine 0.9 (0.7-1.2) mg/dl Est GFR ( Amer) > 60 Est GFR (Non-Af Amer) 60 POC Glucose (mg/dL) (65-110) mg/dL Random Glucose 165 H (70-110) mg/dL Calcium 9.9 (8.4-10.5) mg/dL Phosphorus 4.0 (2.5-4.5) mg/dL Magnesium 1.6 L (1.7-2.2) mg/dL Total Bilirubin 2.7 H (0.2-1.3) mg/dL AST 32 (14-36) U/L ALT 34 (7-56) U/L Alkaline Phosphatase 83 (38-126) U/L Troponin I ng/mL Total Protein 7.7 (5.8-8.3) g/dL Albumin 4.2 (3.0-4.8) g/dL Globulin 3.4 gm/dL Albumin/Globulin Ratio 1.2 (1.1-1.8) TSH 3rd Generation (0.46-4.68) mIU/mL 08/19/17 08/19/17 08/19/17 Range/Units 18:45 14:20 13:56 WBC 9.8 (4.5-11.0) 10^3/ul RBC 4.26 (3.5-6.1) 10^6/uL Hgb 13.1 (12.0-16.0) g/dL Hct 39.4 (36.0-48.0) % MCV 92.5 (80.0-105.0) fl MCH 30.8 (25.0-35.0) pg MCHC 33.2 (31.0-37.0) g/dl RDW 15.2 H (11.5-14.5) % Plt Count 173 (120.0-450.0) 10^3/uL MPV 10.8 (7.0-11.0) fl Gran % 81.2 H (50.0-68.0) % Lymph % (Auto) 12.1 L (22.0-35.0) % [place] % (Auto) 6.3 H (1.0-6.0) % Eos % (Auto) 0.2 L (1.5-5.0) % Baso % (Auto) 0.2 (0.0-3.0) % Gran # 7.97 H (1.4-6.5) Lymph # (Auto) 1.2 (1.2-3.4) [place] # (Auto) 0.6 (0.1-0.6) Eos # (Auto) 0.0 (0.0-0.7) Baso # (Auto) 0.02 (0.0-2.0) K/mm3 PT (9.4-12.5) SECONDS INR (0.93-1.08) Sodium 137 (132-148) mmol/L Potassium 3.1 L (3.6-5.0) mmol/L Chloride 94 L (98-107) mmol/L Carbon Dioxide 31 (21-33) mmol/L Anion Gap 14 (10-20) BUN 18 (7-21) mg/dL Creatinine 0.7 (0.7-1.2) mg/dl Est GFR ( Amer) > 60 Est GFR (Non-Af Amer) > 60 POC Glucose (mg/dL) 133 H (65-110) mg/dL Random Glucose 140 H (70-110) mg/dL Calcium 9.5 (8.4-10.5) mg/dL Phosphorus 3.2 (2.5-4.5) mg/dL Magnesium 1.4 L (1.7-2.2) mg/dL Total Bilirubin 2.1 H (0.2-1.3) mg/dL AST 23 (14-36) U/L ALT 30 (7-56) U/L Alkaline Phosphatase 60 (38-126) U/L Troponin I 0.03 ng/mL Total Protein 6.6 (5.8-8.3) g/dL Albumin 3.6 (3.0-4.8) g/dL Globulin 3.0 gm/dL Albumin/Globulin Ratio 1.2 (1.1-1.8) TSH 3rd Generation (0.46-4.68) mIU/mL 08/19/17 Range/Units 11:20 WBC (4.5-11.0) 10^3/ul RBC (3.5-6.1) 10^6/uL Hgb (12.0-16.0) g/dL Hct (36.0-48.0) % MCV (80.0-105.0) fl MCH (25.0-35.0) pg MCHC (31.0-37.0) g/dl RDW (11.5-14.5) % Plt Count (120.0-450.0) 10^3/uL MPV (7.0-11.0) fl Gran % (50.0-68.0) % Lymph % (Auto) (22.0-35.0) % [place] % (Auto) (1.0-6.0) % Eos % (Auto) (1.5-5.0) % Baso % (Auto) (0.0-3.0) % Gran # (1.4-6.5) Lymph # (Auto) (1.2-3.4) [place] # (Auto) (0.1-0.6) Eos # (Auto) (0.0-0.7) Baso # (Auto) (0.0-2.0) K/mm3 PT (9.4-12.5) SECONDS INR (0.93-1.08) Sodium (132-148) mmol/L Potassium (3.6-5.0) mmol/L Chloride (98-107) mmol/L Carbon Dioxide (21-33) mmol/L Anion Gap (10-20) BUN (7-21) mg/dL Creatinine (0.7-1.2) mg/dl Est GFR ( Amer) Est GFR (Non-Af Amer) POC Glucose (mg/dL) (65-110) mg/dL Random Glucose (70-110) mg/dL Calcium (8.4-10.5) mg/dL Phosphorus (2.5-4.5) mg/dL Magnesium (1.7-2.2) mg/dL Total Bilirubin (0.2-1.3) mg/dL AST (14-36) U/L ALT (7-56) U/L Alkaline Phosphatase (38-126) U/L Troponin I ng/mL Total Protein (5.8-8.3) g/dL Albumin (3.0-4.8) g/dL Globulin gm/dL Albumin/Globulin Ratio (1.1-1.8) TSH 3rd Generation 1.81 (0.46-4.68) mIU/mL Laboratory Results - last 24 hr 08/19/17 08/19/17 08/19/17 11:20 13:56 14:20 WBC 9.8 RBC 4.26 Hgb 13.1 Hct 39.4 MCV 92.5 MCH 30.8 MCHC 33.2 RDW 15.2 H Plt Count 173 MPV 10.8 Gran % 81.2 H Lymph % (Auto) 12.1 L [place] % (Auto) 6.3 H Eos % (Auto) 0.2 L Baso % (Auto) 0.2 Gran # 7.97 H Lymph # (Auto) 1.2 [place] # (Auto) 0.6 Eos # (Auto) 0.0 Baso # (Auto) 0.02 PT INR Sodium 137 Potassium 3.1 L Chloride 94 L Carbon Dioxide 31 Anion Gap 14 BUN 18 Creatinine 0.7 Est GFR ( Amer) > 60 Est GFR (Non-Af Amer) > 60 POC Glucose (mg/dL) Random Glucose 140 H Calcium 9.5 Phosphorus 3.2 Magnesium 1.4 L Total Bilirubin 2.1 H AST 23 ALT 30 Alkaline Phosphatase 60 Troponin I 0.03 Total Protein 6.6 Albumin 3.6 Globulin 3.0 Albumin/Globulin Ratio 1.2 TSH 3rd Generation 1.81 03/18/18 03/18/18 03/18/18 18:45 19:20 19:20 WBC 15.2 H D RBC 4.63 Hgb 14.2 Hct 42.8 MCV 92.4 MCH 30.7 MCHC 33.2 RDW 15.2 H Plt Count 227 MPV 10.8 Gran % 64.9 Lymph % (Auto) 29.0 [place] % (Auto) 5.8 Eos % (Auto) 0.0 L Baso % (Auto) 0.3 Gran # 9.88 H Lymph # (Auto) 4.4 H [place] # (Auto) 0.9 H Eos # (Auto) 0.0 Baso # (Auto) 0.04 PT INR Sodium 139 Potassium 3.5 L Chloride 93 L Carbon Dioxide 30 Anion Gap 19 BUN 17 Creatinine 0.9 Est GFR ( Amer) > 60 Est GFR (Non-Af Amer) 60 POC Glucose (mg/dL) 133 H Random Glucose 165 H Calcium 9.9 Phosphorus 4.0 Magnesium 1.6 L Total Bilirubin 2.7 H AST 32 ALT 34 Alkaline Phosphatase 83 Troponin I Total Protein 7.7 Albumin 4.2 Globulin 3.4 Albumin/Globulin Ratio 1.2 TSH 3rd Generation 08/20/17 08/20/17 08/20/17 06:00 06:00 06:00 WBC 15.4 H RBC 4.81 Hgb 14.6 Hct 44.3 MCV 92.1 MCH 30.4 MCHC 33.0 RDW 15.2 H Plt Count 200 MPV 11.2 H Gran % 85.0 H Lymph % (Auto) 8.2 L [place] % (Auto) 6.7 H Eos % (Auto) 0.0 L Baso % (Auto) 0.1 Gran # 13.11 H Lymph # (Auto) 1.3 [place] # (Auto) 1.0 H Eos # (Auto) 0.0 Baso # (Auto) 0.01 PT 23.4 H INR 2.01 H Sodium 139 Potassium 4.0 Chloride 95 L Carbon Dioxide 29 Anion Gap 18 BUN 22 H Creatinine 0.9 Est GFR ( Amer) > 60 Est GFR (Non-Af Amer) 60 POC Glucose (mg/dL) Random Glucose 169 H Calcium 9.7 Phosphorus 4.6 H Magnesium 2.0 Total Bilirubin 2.3 H AST 46 H D ALT 32 Alkaline Phosphatase 73 Troponin I Total Protein 7.5 Albumin 4.0 Globulin 3.5 Albumin/Globulin Ratio 1.2 TSH 3rd Generation 08/20/17 06:00 WBC RBC Hgb Hct MCV MCH MCHC RDW Plt Count MPV Gran % Lymph % (Auto) [place] % (Auto) Eos % (Auto) Baso % (Auto) Gran # Lymph # (Auto) [place] # (Auto) Eos # (Auto) Baso # (Auto) PT INR Sodium Potassium Chloride Carbon Dioxide Anion Gap BUN Creatinine Est GFR ( Amer) Est GFR (Non-Af Amer) POC Glucose (mg/dL) Random Glucose Calcium Phosphorus Magnesium Total Bilirubin AST ALT Alkaline Phosphatase Troponin I 3.30 H* D Total Protein Albumin Globulin Albumin/Globulin Ratio TSH 3rd Generation EKG/Cardiology Studies: Cardiology / EKG Studies 08/19/17 13:59 EKG [ELECTROCARDIOGRAM] Stat Comment: Reason For Exam: symptomatic bradycardia 08/19/17 18:56 EKG [ELECTROCARDIOGRAM] Stat Comment: Reason For Exam: code blue 08/20/17 08:30 ELECTROCARDIOGRAM Stat Comment: Reason For Exam: VT episode Review of Systems - EENT Eyes: absent: Blurred Vision, Change in Vision - Cardiovascular Cardiovascular: Chest Pain. absent: Chest Pain at Rest, Dyspnea, Lightheadedness - Respiratory Respiratory: Other. absent: Cough Additional comments: pain on inspiration - Gastrointestinal Gastrointestinal: absent: Abdominal Pain Assessment/Plan - Assessment and Plan (Free Text) Assessment: 82 year old female with PMH Afib on coumadin, digoxin, BB, HTN, hyperlipidemia, osteoporosis, athritis s/p [employer]OV[employer]UDIT[employer] last night for unresponsiveness. Oksana hernandez was also called as pt was noted to be pulseless. Pt did not receive any medications at that time, and ROSC and consciousness was regained after 30-60 seconds of CPR. Plan: Neuro: -AAOx3 -continue to monitor for mental status changes Cardio: Aflutter, pulse in the 40s and 50s. -coumadin is on hold -Dopamine gtt at 5 mcg -Echocardiogram is pending -EKG pending reading -Dr. Agarwal, cardiology, will transfer the pt to either [facility] or [facility] EP evaluation for possible pacemaker placement NSTEMI -EKG pending reading -troponin noted to be 3.30, repeat troponin ordered for noon -morphine, o2, nitroglycerin, asa ordered. -beta uvaldo held due to bradycardia, luis inhibitor held due to bp -Dr. Agarwal has has been made aware, recs appreciated HTN -continue home Aldactone Hyperlipidemia -continue home Lipitor ID: Hospital acquired pneumonia vs aspiration pneumonia -CXR shows worsening RUL opacity/infiltrate. Perihilar small patchy opacities more prominent on the right lung -leukocytosis at 15.4 -Dr. Mcgarry consulted, recs appreciated -Vancomycin and Zosyn ordered -BCx2 with gram stain, Urine Cx, sputum cx ordered Pulm: Hospital acquired pneumonia vs aspiration pneumonia -ID is following -maintain SpO2 above 95% GI: ppx HHD Endo: Maintain euglycemia Musculoskeletal: -right sided chest pain; reproducible with palpation -rib series pending DVT ppx GI ppx Dispo: possible transfer to [facility] or [facility] for EP pacemaker placement <Yash Jarvis - Last Filed: 08/20/17 12:08> CCU Objective - Vital Signs / Intake & Output Vital Signs (Last 4 hours): Vital Signs Pulse Resp Pulse Ox 08/20/17 08:50 76 54 H 91 L 08/20/17 08:40 52 L 27 H 92 L 08/20/17 08:30 51 L 92 L 08/20/17 08:20 52 L 30 H 92 L 08/20/17 08:10 52 L 28 H 91 L Intake and Output (Last 8hrs): Intake & Output 08/19/17 08/20/17 08/20/17 22:59 06:59 14:59 Intake Total 368 46 659 Output Total 0 Balance 368 46 659 Weight 197 lb 8 oz 197 lb 8 oz Intake: IV 8 46 339 Right Antecubital 143 Oral 360 20 Tube Feeding 0 TPN/PPN 0 Blood Product 0 Lipid 0 Albumin 0 Other 300 Output: Urine 0 Urine, Voided 0 Stool 0 Urine/Stool Mix 0 Emesis 0 Oral Regurgitation 0 Other 0 Other: # Voids Urine, Voided 3 0 # Bowel Movements 3 0 - Medications Active Medications: Active Medications Generic Name Dose Route Start Last Admin Trade Name Freq PRN Reason Stop Dose Admin Aspirin 81 mg 08/20/17 10:00 08/20/17 10:13 Aspirin Chewable PO 81 mg DAILY JOAO Administration Atorvastatin Calcium 10 mg 08/17/17 22:00 08/19/17 21:20 Lipitor PO 10 mg HS JOAO Administration Dopamine HCl/Dextrose 400 mg in 250 mls @ 17.18 mls/hr 08/19/17 19:04 10:13 Dopamine 400mg/250ml D5w IV 5 mcg/kg/min .[id number] PRN 17.18 mls/hr TITRATE PER MD ORDER Administration Protocol 5 MCG/KG/MIN Vancomycin HCl 1 gm in 250 mls @ 167 mls/hr 08/20/17 22:00 Vancomycin 1gm IVPB Q12 JOAO Protocol Meropenem 50 mls @ 100 mls/hr 08/20/17 14:00 Merrem Iv 1 Gm Premix IVPB 08/27/17 14:01 Q8 [facility] Protocol Morphine Sulfate 1 mg 08/19/17 20:58 08/20/17 11:15 Morphine IVP 1 mg Q3H PRN Administration Pain, severe (8-10) Naproxen 550 mg 08/19/17 20:57 08/20/17 11:15 Anaprox Ds PO 550 mg Q8 PRN Administration Pain, moderate (4-7) Spironolactone 25 mg 08/17/17 11:15 08/20/17 10:13 Aldactone PO 25 mg DAILY JOAO Administration Warfarin Sodium 2 mg 08/17/17 18:00 08/17/17 18:00 Coumadin PO Not Given 1800 [facility] Protocol - Patient Studies Lab Studies: Lab Studies 08/20/17 08/20/17 08/20/17 Range/Units 06:00 06:00 06:00 WBC 15.4 H (4.5-11.0) 10^3/ul RBC 4.81 (3.5-6.1) 10^6/uL Hgb 14.6 (12.0-16.0) g/dL Hct 44.3 (36.0-48.0) % MCV 92.1 (80.0-105.0) fl MCH 30.4 (25.0-35.0) pg MCHC 33.0 (31.0-37.0) g/dl RDW 15.2 H (11.5-14.5) % Plt Count 200 (120.0-450.0) 10^3/uL MPV 11.2 H (7.0-11.0) fl Gran % 85.0 H (50.0-68.0) % Lymph % (Auto) 8.2 L (22.0-35.0) % [place] % (Auto) 6.7 H (1.0-6.0) % Eos % (Auto) 0.0 L (1.5-5.0) % Baso % (Auto) 0.1 (0.0-3.0) % Gran # 13.11 H (1.4-6.5) Lymph # (Auto) 1.3 (1.2-3.4) [place] # (Auto) 1.0 H (0.1-0.6) Eos # (Auto) 0.0 (0.0-0.7) Baso # (Auto) 0.01 (0.0-2.0) K/mm3 PT (9.4-12.5) SECONDS INR (0.93-1.08) Sodium 139 (132-148) mmol/L Potassium 4.0 (3.6-5.0) mmol/L Chloride 95 L (98-107) mmol/L Carbon Dioxide 29 (21-33) mmol/L Anion Gap 18 (10-20) BUN 22 H (7-21) mg/dL Creatinine 0.9 (0.7-1.2) mg/dl Est GFR ( Amer) > 60 Est GFR (Non-Af Amer) 60 POC Glucose (mg/dL) (65-110) mg/dL Random Glucose 169 H (70-110) mg/dL Calcium 9.7 (8.4-10.5) mg/dL Phosphorus 4.6 H (2.5-4.5) mg/dL Magnesium 2.0 (1.7-2.2) mg/dL Total Bilirubin 2.3 H (0.2-1.3) mg/dL AST 46 H D (14-36) U/L ALT 32 (7-56) U/L Alkaline Phosphatase 73 (38-126) U/L Troponin I 3.30 H* D ng/mL Total Protein 7.5 (5.8-8.3) g/dL Albumin 4.0 (3.0-4.8) g/dL Globulin 3.5 gm/dL Albumin/Globulin Ratio 1.2 (1.1-1.8) TSH 3rd Generation (0.46-4.68) mIU/mL 08/20/17 08/19/1708/19/18 Range/Units 06:00 19:20 19:20 WBC 15.2 H D (4.5-11.0) 10^3/ul RBC 4.63 (3.5-6.1) 10^6/uL Hgb 14.2 (12.0-16.0) g/dL Hct 42.8 (36.0-48.0) % MCV 92.4 (80.0-105.0) fl MCH 30.7 (25.0-35.0) pg MCHC 33.2 (31.0-37.0) g/dl RDW 15.2 H (11.5-14.5) % Plt Count 227 (120.0-450.0) 10^3/uL MPV 10.8 (7.0-11.0) fl Gran % 64.9 (50.0-68.0) % Lymph % (Auto) 29.0 (22.0-35.0) % [place] % (Auto) 5.8 (1.0-6.0) % Eos % (Auto) 0.0 L (1.5-5.0) % Baso % (Auto) 0.3 (0.0-3.0) % Gran # 9.88 H (1.4-6.5) Lymph # (Auto) 4.4 H (1.2-3.4) [place] # (Auto) 0.9 H (0.1-0.6) Eos # (Auto) 0.0 (0.0-0.7) Baso # (Auto) 0.04 (0.0-2.0) K/mm3 PT 23.4 H (9.4-12.5) SECONDS INR 2.01 H (0.93-1.08) Sodium 139 (132-148) mmol/L Potassium 3.5 L (3.6-5.0) mmol/L Chloride 93 L (98-107) mmol/L Carbon Dioxide 30 (21-33) mmol/L Anion Gap 19 (10-20) BUN 17 (7-21) mg/dL Creatinine 0.9 (0.7-1.2) mg/dl Est GFR ( Amer) > 60 Est GFR (Non-Af Amer) 60 POC Glucose (mg/dL) (65-110) mg/dL Random Glucose 165 H (70-110) mg/dL Calcium 9.9 (8.4-10.5) mg/dL Phosphorus 4.0 (2.5-4.5) mg/dL Magnesium 1.6 L (1.7-2.2) mg/dL Total Bilirubin 2.7 H (0.2-1.3) mg/dL AST 32 (14-36) U/L ALT 34 (7-56) U/L Alkaline Phosphatase 83 (38-126) U/L Troponin I ng/mL Total Protein 7.7 (5.8-8.3) g/dL Albumin 4.2 (3.0-4.8) g/dL Globulin 3.4 gm/dL Albumin/Globulin Ratio 1.2 (1.1-1.8) TSH 3rd Generation (0.46-4.68) mIU/mL 08/19/17 08/19/17 08/19/17 Range/Units 18:45 14:20 13:56 WBC 9.8 (4.5-11.0) 10^3/ul RBC 4.26 (3.5-6.1) 10^6/uL Hgb 13.1 (12.0-16.0) g/dL Hct 39.4 (36.0-48.0) % MCV 92.5 (80.0-105.0) fl MCH 30.8 (25.0-35.0) pg MCHC 33.2 (31.0-37.0) g/dl RDW 15.2 H (11.5-14.5) % Plt Count 173 (120.0-450.0) 10^3/uL MPV 10.8 (7.0-11.0) fl Gran % 81.2 H (50.0-68.0) % Lymph % (Auto) 12.1 L (22.0-35.0) % [place] % (Auto) 6.3 H (1.0-6.0) % Eos % (Auto) 0.2 L (1.5-5.0) % Baso % (Auto) 0.2 (0.0-3.0) % Gran # 7.97 H (1.4-6.5) Lymph # (Auto) 1.2 (1.2-3.4) [place] # (Auto) 0.6 (0.1-0.6) Eos # (Auto) 0.0 (0.0-0.7) Baso # (Auto) 0.02 (0.0-2.0) K/mm3 PT (9.4-12.5) SECONDS INR (0.93-1.08) Sodium 137 (132-148) mmol/L Potassium 3.1 L (3.6-5.0) mmol/L Chloride 94 L (98-107) mmol/L Carbon Dioxide 31 (21-33) mmol/L Anion Gap 14 (10-20) BUN 18 (7-21) mg/dL Creatinine 0.7 (0.7-1.2) mg/dl Est GFR ( Amer) > 60 Est GFR (Non-Af Amer) > 60 POC Glucose (mg/dL) 133 H (65-110) mg/dL Random Glucose 140 H (70-110) mg/dL Calcium 9.5 (8.4-10.5) mg/dL Phosphorus 3.2 (2.5-4.5) mg/dL Magnesium 1.4 L (1.7-2.2) mg/dL Total Bilirubin 2.1 H (0.2-1.3) mg/dL AST 23 (14-36) U/L ALT 30 (7-56) U/L Alkaline Phosphatase 60 (38-126) U/L Troponin I 0.03 ng/mL Total Protein 6.6 (5.8-8.3) g/dL Albumin 3.6 (3.0-4.8) g/dL Globulin 3.0 gm/dL Albumin/Globulin Ratio 1.2 (1.1-1.8) TSH 3rd Generation (0.46-4.68) mIU/mL 08/19/17 Range/Units 11:20 WBC (4.5-11.0) 10^3/ul RBC (3.5-6.1) 10^6/uL Hgb (12.0-16.0) g/dL Hct (36.0-48.0) % MCV (80.0-105.0) fl MCH (25.0-35.0) pg MCHC (31.0-37.0) g/dl RDW (11.5-14.5) % Plt Count (120.0-450.0) 10^3/uL MPV (7.0-11.0) fl Gran % (50.0-68.0) % Lymph % (Auto) (22.0-35.0) % [place] % (Auto) (1.0-6.0) % Eos % (Auto) (1.5-5.0) % Baso % (Auto) (0.0-3.0) % Gran # (1.4-6.5) Lymph # (Auto) (1.2-3.4) [place] # (Auto) (0.1-0.6) Eos # (Auto) (0.0-0.7) Baso # (Auto) (0.0-2.0) K/mm3 PT (9.4-12.5) SECONDS INR (0.93-1.08) Sodium (132-148) mmol/L Potassium (3.6-5.0) mmol/L Chloride (98-107) mmol/L Carbon Dioxide (21-33) mmol/L Anion Gap (10-20) BUN (7-21) mg/dL Creatinine (0.7-1.2) mg/dl Est GFR ( Amer) Est GFR (Non-Af Amer) POC Glucose (mg/dL) (65-110) mg/dL Random Glucose (70-110) mg/dL Calcium (8.4-10.5) mg/dL Phosphorus (2.5-4.5) mg/dL Magnesium (1.7-2.2) mg/dL Total Bilirubin (0.2-1.3) mg/dL AST (14-36) U/L ALT (7-56) U/L Alkaline Phosphatase (38-126) U/L Troponin I ng/mL Total Protein (5.8-8.3) g/dL Albumin (3.0-4.8) g/dL Globulin gm/dL Albumin/Globulin Ratio (1.1-1.8) TSH 3rd Generation 1.81 (0.46-4.68) mIU/mL Laboratory Results - last 24 hr 08/19/17 08/19/17 08/19/17 11:20 13:56 14:20 WBC 9.8 RBC 4.26 Hgb 13.1 Hct 39.4 MCV 92.5 MCH 30.8 MCHC 33.2 RDW 15.2 H Plt Count 173 MPV 10.8 Gran % 81.2 H Lymph % (Auto) 12.1 L [place] % (Auto) 6.3 H Eos % (Auto) 0.2 L Baso % (Auto) 0.2 Gran # 7.97 H Lymph # (Auto) 1.2 [place] # (Auto) 0.6 Eos # (Auto) 0.0 Baso # (Auto) 0.02 PT INR Sodium 137 Potassium 3.1 L Chloride 94 L Carbon Dioxide 31 Anion Gap 14 BUN 18 Creatinine 0.7 Est GFR ( Amer) > 60 Est GFR (Non-Af Amer) > 60 POC Glucose (mg/dL) Random Glucose 140 H Calcium 9.5 Phosphorus 3.2 Magnesium 1.4 L Total Bilirubin 2.1 H AST 23 ALT 30 Alkaline Phosphatase 60 Troponin I 0.03 Total Protein 6.6 Albumin 3.6 Globulin 3.0 Albumin/Globulin Ratio 1.2 TSH 3rd Generation 1.81 08/19/17 08/19/17 08/19/17 18:45 19:20 19:20 WBC 15.2 H D RBC 4.63 Hgb 14.2 Hct 42.8 MCV 92.4 MCH 30.7 MCHC 33.2 RDW 15.2 H Plt Count 227 MPV 10.8 Gran % 64.9 Lymph % (Auto) 29.0 [place] % (Auto) 5.8 Eos % (Auto) 0.0 L Baso % (Auto) 0.3 Gran # 9.88 H Lymph # (Auto) 4.4 H [place] # (Auto) 0.9 H Eos # (Auto) 0.0 Baso # (Auto) 0.04 PT INR Sodium 139 Potassium 3.5 L Chloride 93 L Carbon Dioxide 30 Anion Gap 19 BUN 17 Creatinine 0.9 Est GFR ( Amer) > 60 Est GFR (Non-Af Amer) 60 POC Glucose (mg/dL) 133 H Random Glucose 165 H Calcium 9.9 Phosphorus 4.0 Magnesium 1.6 L Total Bilirubin 2.7 H AST 32 ALT 34 Alkaline Phosphatase 83 Troponin I Total Protein 7.7 Albumin 4.2 Globulin 3.4 Albumin/Globulin Ratio 1.2 TSH 3rd Generation 08/20/17 08/20/17 08/20/17 06:00 06:00 06:00 WBC 15.4 H RBC 4.81 Hgb 14.6 Hct 44.3 MCV 92.1 MCH 30.4 MCHC 33.0 RDW 15.2 H Plt Count 200 MPV 11.2 H Gran % 85.0 H Lymph % (Auto) 8.2 L [place] % (Auto) 6.7 H Eos % (Auto) 0.0 L Baso % (Auto) 0.1 Gran # 13.11 H Lymph # (Auto) 1.3 [place] # (Auto) 1.0 H Eos # (Auto) 0.0 Baso # (Auto) 0.01 PT 23.4 H INR 2.01 H Sodium 139 Potassium 4.0 Chloride 95 L Carbon Dioxide 29 Anion Gap 18 BUN 22 H Creatinine 0.9 Est GFR ( Amer) > 60 Est GFR (Non-Af Amer) 60 POC Glucose (mg/dL) Random Glucose 169 H Calcium 9.7 Phosphorus 4.6 H Magnesium 2.0 Total Bilirubin 2.3 H AST 46 H D ALT 32 Alkaline Phosphatase 73 Troponin I Total Protein 7.5 Albumin 4.0 Globulin 3.5 Albumin/Globulin Ratio 1.2 TSH 3rd Generation 08/20/17 06:00 WBC RBC Hgb Hct MCV MCH MCHC RDW Plt Count MPV Gran % Lymph % (Auto) [place] % (Auto) Eos % (Auto) Baso % (Auto) Gran # Lymph # (Auto) [place] # (Auto) Eos # (Auto) Baso # (Auto) PT INR Sodium Potassium Chloride Carbon Dioxide Anion Gap BUN Creatinine Est GFR ( Amer) Est GFR (Non-Af Amer) POC Glucose (mg/dL) Random Glucose Calcium Phosphorus Magnesium Total Bilirubin AST ALT Alkaline Phosphatase Troponin I 3.30 H* D Total Protein Albumin Globulin Albumin/Globulin Ratio TSH 3rd Generation EKG/Cardiology Studies: Cardiology / EKG Studies 08/19/17 13:59 EKG [ELECTROCARDIOGRAM] Stat Comment: Reason For Exam: symptomatic bradycardia 08/19/17 18:56 EKG [ELECTROCARDIOGRAM] Stat Comment: Reason For Exam: code blue 08/19/17 20:25 EKG [ELECTROCARDIOGRAM] Stat Comment: Reason For Exam: code blue 08/20/17 08:30 ELECTROCARDIOGRAM Stat Comment: Reason For Exam: VT episode Attending/Attestation - Attestation I have personally seen and examined this patient.: Yes I have fully participated in the care of the patient.: Yes I have reviewed all pertinent clinical information: Yes Notes (Text): 08/20/17 12:03 The patient was seen and examined at the bedside. Patient care was discussed with resident and ICU team in MDR rounds. Medical records, lab studies, and imaging were reviewed and management issues were discussed and formulated. Last 24H events reviewed. Agree with above treatment plans as outlined in 's note with addition of the following: NSTEMI \ Bradycardia \ sp CPR \ PNA \ -hemodynamic monitoring to maintain MAP>65 -continue dopamine drip and bedside transcutaneous pacing monitoring -f\u serial ECg and CE -d\w cardiology team regarding elevation in troponins and need for PPM -continue ACS medications as per cardiology team -possible tfer to another facility as per cardiology team -o2 supplementation to maintain Spo2>90 Pao2>60; currently comfortable on NC -start Abx to cover for hospital acquired PNA ; ID team eval and f\u cultures -f\u Bun\Cr and U\o -PO diet (cardiac ) and aspiration precautions -monitor INR and for bleed; coumadin held today -DVT \ PUD prophylaxis CCM f\u 30min
--- NOTE | 2017-08-20 10:56 | CARD ---
APPROVED REPORT EKG Measurement Heart [id number] [id number] <Conclusion> Probably A. Flutter Slow VR RBBB LAHB STTW changes c/w ischemia
--- NOTE | 2017-08-20 11:07 | CARD ---
APPROVED REPORT EKG Measurement Heart [id number] <Conclusion> WCT at 126 BPM, probably VT
[2017-08-20] MEDS: Naproxen 550 mg Tab PO PRN (11:15)
--- NOTE | 2017-08-20 11:51 | CARD ---
APPROVED REPORT EKG Measurement Heart [id number] [id number] <Conclusion> Probably PAT With Block Ventricular Rate 52/Minute. Incomplete right bundle branch block Inferior infarct, age undetermined ST & T wave abnormality, consider anterolateral ischemia Abnormal ECG
[2017-08-20] MEDS ORDERED: Piperacillin/Tazobact 3.375 gm 100 ML IVPB SCH (12:00)
--- NOTE | 2017-08-20 13:30 | PN ---
DATE: SUBJECTIVE: The patient has no complaints of any chest pain. No shortness of breath. No headaches or dizziness. The patient's rapid response yesterday was noted. I spoke with the resident as well. PHYSICAL EXAMINATION: VITAL SIGNS: Temperature is 98, pulse 54, blood pressure 116/61, respirations 24. GENERAL: The patient is lying in bed, flat, comfortable. HEENT: No oral lesion. Anicteric sclerae. Moist mucosa. NECK: No JVD, adenopathy, or thyromegaly. CARDIOVASCULAR: S1 and S2, bradycardia. No murmurs, rubs, or gallops. LUNGS: Clear to auscultation bilaterally. No wheeze, rales, or rhonchi. ABDOMEN: Bowel sounds are positive, soft, nontender and nondistended. EXTREMITIES: No cyanosis, clubbing or edema. DIAGNOSTIC DATA: Chest x-ray shows worsening of right upper lobe opacity of previous exam. ASSESSMENT: 1. Bradycardia. 2. Hypotension, resolved. 3. Lower extremity edema, improved. 4. Congestive heart failure secondary to systolic dysfunction, stable. 5. Dyslipidemia. 6. Osteoarthritis. 7. Chronic obstructive pulmonary disease. PLAN: The patient is feeling much better. She is on dopamine. The patient had a chest x-ray that showed infiltrate. The patient will most likely need a pacemaker. There is a right upper lobe opacity and infiltrate that was seen in previous exam. It was not reported on the previous exam. The patient is receiving Coumadin. The INR is therapeutic at 2, also the patient's Coumadin is on hold. The patient is on Lipitor for dyslipidemia. The patient received magnesium replacement and a potassium replacement yesterday. The patient is on morphine for pain. She has an echo that has been ordered. She is on a heart-healthy diet. I did speak to the patient's family to give an update on the patient's diagnosis and plan of care. wJ Ruggiero MD [facility]
[2017-08-20] MEDS: Meropenem IV 1 gm in NS 50 ML IVPB SCH ×2 (13:32→21:07)
--- NOTE | 2017-08-20 13:43 | RAD ---
PROCEDURE: Bilateral ribs HISTORY: s/p code blue r/o rib fx COMPARISON: TECHNIQUE: Multiple views of the both rib cages FINDINGS: There is a minimally displaced fracture of the right 3rd and 4th ribs. There is no pneumothorax IMPRESSION: Fractures of the right 3rd and 4th ribs.
--- NOTE | 2017-08-20 13:51 | CP.PCM.CON ---
History of Present Illness - History of Present Illness History of Present Illness: 82 year old female with PMH of obesity with BMI 37, atrial fibrillation on anticoagulation, was initially brought in to [facility] because of bradycardia and dizziness while in her PMD's office. She was also having some shortness of breath and cough. On this admission, she was found to have pulmonary vascular congestion and was being treated for CHF. She was doing relatively well but yesterday and today, she is noticed to have leukocytosis. There is no note of fever or chills, no vomiting, no diarrhea, no abdominal pain, no chest pain, no dysuria. Infectious diseases consult is requested to further evaluate and manage. Review of Systems - Review of Systems All systems: reviewed and no additional remarkable complaints except (as per HPI ) Past Patient History - Infectious Disease Hx of Infectious Diseases: None - Tetanus Immunizations Tetanus Immunization: Unknown - Past Medical History & Family History Past Medical History?: Yes - Past Social History Smoking Status: Never Smoked - CARDIAC Hx Cardiac Disorders: Yes Hx Cardia Arrhythmia: Yes Hx Hypertension: Yes - PULMONARY Hx Respiratory Disorders: No - NEUROLOGICAL Hx Neurological Disorder: No - HEENT Hx HEENT Problems: Yes Other/Comment: glasses - RENAL Hx Chronic Kidney Disease: No - ENDOCRINE/METABOLIC Hx Endocrine Disorders: No - HEMATOLOGICAL/ONCOLOGICAL Hx Blood Disorders: No - INTEGUMENTARY Hx Dermatological Problems: No - MUSCULOSKELETAL/RHEUMATOLOGICAL Hx Musculoskeletal Disorders: Yes Hx Arthritis: Yes Hx Falls: Yes Hx Fractures: Yes (COMPRESSION FX LS SPINE) Hx Osteoporosis: Yes Hx Unsteady Gait: Yes (CANE) - GASTROINTESTINAL Hx Gastrointestinal Disorders: Yes Other/Comment: HEMMORRHOIDS - GENITOURINARY/GYNECOLOGICAL Hx Genitourinary Disorders: Yes Hx Urinary Tract Infection: Yes - PSYCHIATRIC Hx Psychophysiologic Disorder: No Hx Substance Use: No - SURGICAL HISTORY Hx Surgeries: Yes (C/S) Hx Cholecystectomy: Yes Other/Comment: HEMORRHOIDECTOMY,HYSTERECTOMY - ANESTHESIA Hx Anesthesia: Yes Hx Anesthesia Reactions: No Hx Malignant Hyperthermia: No Meds Allergies/Adverse Reactions: Allergies Allergy/AdvReac Type Severity Reaction Status Date / Time No Known Allergies Allergy Verified 08/17/17 17:51 - Medications Medications: Current Medications Aspirin (Aspirin Chewable) 81 mg PO DAILY [facility] Last Admin: 08/20/17 10:13 Dose: 81 mg Atorvastatin Calcium (Lipitor) 10 mg PO HS [facility] Last Admin: 08/19/17 21:20 Dose: 10 mg Dopamine HCl/Dextrose (Dopamine 400mg/250ml D5w) 400 mg in 250 mls @ 17.18 mls/ hr IV .[id number] PRN; Protocol; 5 MCG/KG/MIN PRN Reason: TITRATE PER MD ORDER Last Admin: 08/20/17 10:13 Dose: 5 mcg/kg/min, 17.18 mls/hr Vancomycin HCl (Vancomycin 1gm) 1 gm in 250 mls @ 167 mls/hr IVPB Q12 JOAO PRN Reason: Protocol Meropenem 1 gm/ Dextrose 100 mls @ 100 mls/hr IVPB Q8 JOAO PRN Reason: Protocol Stop: 08/27/17 14:01 Morphine Sulfate (Morphine) 1 mg IVP Q3H PRN PRN Reason: Pain, severe (8-10) Last Admin: 08/20/17 06:49 Dose: 1 mg Naproxen (Anaprox Ds) 550 mg PO Q8 PRN PRN Reason: Pain, moderate (4-7) Last Admin: 08/19/17 21:34 Dose: 550 mg Spironolactone (Aldactone) 25 mg PO DAILY [facility] Last Admin: 08/20/17 10:13 Dose: 25 mg Warfarin Sodium (Coumadin) 2 mg PO 1800 JOAO PRN Reason: Protocol Last Admin: 08/17/17 18:00 Dose: Not Given Physical Exam - Constitutional Appears: Non-toxic, Chronically Ill - Head Exam Head Exam: NORMAL INSPECTION - Neck Exam Neck exam: Negative for: Meningismus - Respiratory Exam Respiratory Exam: Decreased Breath Sounds - Cardiovascular Exam Cardiovascular Exam: +S1, +S2 - GI/Abdominal Exam GI & Abdominal Exam: Soft. absent: Tenderness Results - Vital Signs Recent Vital Signs: Last Vital Signs Temp 98 F 08/20/17 06:30 Pulse 76 08/20/17 08:50 Resp 54 H 08/20/17 08:50 BP 118/48 L 08/20/17 06:30 Pulse Ox 91 L 08/20/17 08:50 - Labs Result Diagrams: 08/20/17 06:00 08/20/17 06:00 Labs: Laboratory Results - last 24 hr 08/19/17 08/19/17 08/19/17 11:20 13:56 14:20 WBC 9.8 RBC 4.26 Hgb 13.1 Hct 39.4 MCV 92.5 MCH 30.8 MCHC 33.2 RDW 15.2 H Plt Count 173 MPV 10.8 Gran % 81.2 H Lymph % (Auto) 12.1 L [place] % (Auto) 6.3 H Eos % (Auto) 0.2 L Baso % (Auto) 0.2 Gran # 7.97 H Lymph # (Auto) 1.2 [place] # (Auto) 0.6 Eos # (Auto) 0.0 Baso # (Auto) 0.02 PT INR Sodium 137 Potassium 3.1 L Chloride 94 L Carbon Dioxide 31 Anion Gap 14 BUN 18 Creatinine 0.7 Est GFR ( Amer) > 60 Est GFR (Non-Af Amer) > 60 POC Glucose (mg/dL) Random Glucose 140 H Calcium 9.5 Phosphorus 3.2 Magnesium 1.4 L Total Bilirubin 2.1 H AST 23 ALT 30 Alkaline Phosphatase 60 Troponin I 0.03 Total Protein 6.6 Albumin 3.6 Globulin 3.0 Albumin/Globulin Ratio 1.2 TSH 3rd Generation 1.81 08/19/17 08/19/17 08/19/17 18:45 19:20 19:20 WBC 15.2 H D RBC 4.63 Hgb 14.2 Hct 42.8 MCV 92.4 MCH 30.7 MCHC 33.2 RDW 15.2 H Plt Count 227 MPV 10.8 Gran % 64.9 Lymph % (Auto) 29.0 [place] % (Auto) 5.8 Eos % (Auto) 0.0 L Baso % (Auto) 0.3 Gran # 9.88 H Lymph # (Auto) 4.4 H [place] # (Auto) 0.9 H Eos # (Auto) 0.0 Baso # (Auto) 0.04 PT INR Sodium 139 Potassium 3.5 L Chloride 93 L Carbon Dioxide 30 Anion Gap 19 BUN 17 Creatinine 0.9 Est GFR ( Amer) > 60 Est GFR (Non-Af Amer) 60 POC Glucose (mg/dL) 133 H Random Glucose 165 H Calcium 9.9 Phosphorus 4.0 Magnesium 1.6 L Total Bilirubin 2.7 H AST 32 ALT 34 Alkaline Phosphatase 83 Troponin I Total Protein 7.7 Albumin 4.2 Globulin 3.4 Albumin/Globulin Ratio 1.2 TSH 3rd Generation 08/20/17 08/20/17 08/20/17 06:00 06:00 06:00 WBC 15.4 H RBC 4.81 Hgb 14.6 Hct 44.3 MCV 92.1 MCH 30.4 MCHC 33.0 RDW 15.2 H Plt Count 200 MPV 11.2 H Gran % 85.0 H Lymph % (Auto) 8.2 L [place] % (Auto) 6.7 H Eos % (Auto) 0.0 L Baso % (Auto) 0.1 Gran # 13.11 H Lymph # (Auto) 1.3 [place] # (Auto) 1.0 H Eos # (Auto) 0.0 Baso # (Auto) 0.01 PT 23.4 H INR 2.01 H Sodium 139 Potassium 4.0 Chloride 95 L Carbon Dioxide 29 Anion Gap 18 BUN 22 H Creatinine 0.9 Est GFR ( Amer) > 60 Est GFR (Non-Af Amer) 60 POC Glucose (mg/dL) Random Glucose 169 H Calcium 9.7 Phosphorus 4.6 H Magnesium 2.0 Total Bilirubin 2.3 H AST 46 H D ALT 32 Alkaline Phosphatase 73 Troponin I Total Protein 7.5 Albumin 4.0 Globulin 3.5 Albumin/Globulin Ratio 1.2 TSH 3rd Generation 08/20/17 06:00 WBC RBC Hgb Hct MCV MCH MCHC RDW Plt Count MPV Gran % Lymph % (Auto) [place] % (Auto) Eos % (Auto) Baso % (Auto) Gran # Lymph # (Auto) [place] # (Auto) Eos # (Auto) Baso # (Auto) PT INR Sodium Potassium Chloride Carbon Dioxide Anion Gap BUN Creatinine Est GFR ( Amer) Est GFR (Non-Af Amer) POC Glucose (mg/dL) Random Glucose Calcium Phosphorus Magnesium Total Bilirubin AST ALT Alkaline Phosphatase Troponin I 3.30 H* D Total Protein Albumin Globulin Albumin/Globulin Ratio TSH 3rd Generation Assessment & Plan - Assessment and Plan (Free Text) Plan: Assessment SIRS, R/O sepsis from HCAP in this patient with acute on chronic CHF obesity with BMI 37 atrial fibrillation on anticoagulation Plan Started patient on Merrem and Vancomycin pending blood, sputum cx, urine cx, repeat CXR follow up Pulmonary evaluation will monitor clinically
--- NOTE | 2017-08-20 18:27 | CON ---
DATE: 08/20/2017 PULMONARY CONSULTATION REFERRING PHYSICIAN: Jw Ruggiero M.D. REASON FOR CONSULTATION: Abnormal chest x-ray. History is obtained via extensive discussion with the patient and daughter. I have also discussed the case with the nurse and certified medical transcriptionist at length. I have also reviewed the chart at length. The patient is an 82-year-old female, with past medical history significant for atrial fibrillation (on Coumadin), osteoporosis, who presented to [facility] - originally on 08/17/2017 - after she was found to be bradycardic and hypotensive at her private medical doctors (Dr. De La Garza) office. In the emergency room, the patient also gave the history of recent dyspnea on exertion. She was thus admitted for additional evaluation. Again, I did discuss the case with the certified medical transcriptionist and ICU nurse at length. Apparently, yesterday, the patient was found to be unresponsive. As per Dr. Rodriguez, the heart rhythm was consistent with ventricular tachycardia. The patient then underwent brief CPR efforts (chest compressions) . She subsequently woke up and was transferred to the medical ICU. The patient is mildly short of breath at rest, but in no acute distress. She does offer the history of recent dyspnea on exertion. There is no history of cough or sputum production. There is no history of chest pain, coughing up of blood, or chest pain - made worse with deep respirations. There is no history of temperatures, chills or infectious exposure. There is no history of night sweats, weight loss or appetite change prior to the above events. No history of calf pains. No history of recent travel or trauma. REVIEW OF SYSTEMS: No history of nausea, vomiting or diarrhea. No acute urinary symptoms. Rest of the review of systems is negative. ALLERGIES: NO KNOWN ALLERGIES. SOCIAL HISTORY: Negative for tobacco and negative for alcohol. FAMILY HISTORY: No inheritable diseases. HOME MEDICATIONS: Include Coumadin, Aldactone, Lopressor, magnesium, Lanoxin, Lipitor. PHYSICAL EXAMINATION GENERAL: The patient is mildly short of breath, but in no acute distress. She is not using accessory muscles for breathing. VITAL SIGNS: Temperature is 98.0, pulse 76, respirations 20/22, blood pressure 118/48. Oxygen saturation on nasal cannula is 94%. HEENT: Normocephalic, atraumatic. No JVD. CARDIOVASCULAR: Systolic ejection murmur at the lower left sternal border. Positive S3 gallop. LUNGS: Minimal crackles at the bases. No rhonchi or wheezing. EXTREMITIES: Mild edema. No cyanosis, no clubbing. Calves are nontender to palpation. GI: Abdomen is soft, nontender and nondistended. Bowel sounds are positive. SKIN: No acute rash. NEUROLOGIC: Limited at the present time. PERTINENT LABORATORY DATA: Chest x-ray was done last night and reviewed. There is [id number] pulmonary edema noted. In addition, there is an increased haziness noted in the right upper lobe. CBC: White count 15.4, hemoglobin 14.6, hematocrit 44.3, platelets of 200,000. INR 2.01. Complete metabolic profile: Chloride 95, BUN 22, glucose 169, phosphorus 4.6, bilirubin 2.3, AST 46. Rest of the metabolic profiles within normal limits. Initial B-type natriuretic peptide 942. IMPRESSION: 1. Status post cardiopulmonary resuscitation. 2. Status post ventricular tachycardia, now in atrial flutter. 3. Questionable aspiration pneumonia - right lung. 4. Mild congestive heart failure. 5. Status post bradycardia. 6. Status post hypotension. PLAN: Again, I did discuss the case with the patient and daughter at length. I have also discussed the case with the certified medical transcriptionist and nurse at length. I have also reviewed the chart at length. The patient was initially admitted - on 08/17/2017 - after she was found to be hypotensive and bradycardic (at her private medical doctor's office). In addition to the above, the patient also offered a history of recent dyspnea on exertion. As above, the patient did lose blood pressure and pulse yesterday. As per Dr. Rodriguez, the initial rhythm was ventricular tachycardia. The patient did undergo chest compressions and regained her blood pressure, pulse and mental status shortly after CPR efforts were begun. She is now in atrial flutter. I did review the chest x-ray as above. The chest x-ray does show some [id number] pulmonary edema. In addition, there is an increased haziness noted in the right upper lung. In addition, there is also a mild leukocytosis present. I do question whether the clinical scenario is consistent with aspiration pneumonia. The patient has been pancultured. Dr. Mcgarry (Infectious Disease) will be called on the case. Procalcitonin has also been ordered. I have also ordered aspiration precautions and a repeat chest x-ray for tomorrow. Again, cardiology evaluation is ongoing. Input by Dr. Rodriguez is noted. The patient is clinically improved - compared to yesterday. However, her overall status/prognosis does remain very guarded. I will discuss the above with Dr. Ruggiero. Thank you very much for this pulmonary consultation. Vicente Nobles MD MTDKraig
[2017-08-20] MEDS: Vancomycin 1gm in NS 250ml 1 GM/250 ML BAG IVPB SCH (21:05)
[2017-08-21] MEDS: DOPamine 400mg/250ml D5W 400 MG/250 ML BAG IV PRN (02:00)
[2017-08-21] MEDS: Meropenem IV 1 gm in NS 50 ML IVPB SCH (06:13)
[2017-08-21 06:43] LABS: BASO # 0.01 K/mm3 (0.0-2.0); BASO % 0.1 % (0.0-3.0); EOS % 0.2 % (1.5-5.0); GRAN # 12.89 (1.4-6.5); HEMOGLOBIN 14.7 g/dL (12.0-16.0); LYMPH # 1.7 (1.2-3.4); LYMPH % 10.6 % (22.0-35.0); MEAN CELL VOLUME 91.9 fl (80.0-105.0); MEAN CORPUSCULAR HEMOGLOBIN 30.5 pg (25.0-35.0); MEAN CORPUSCULAR HGB CONC 33.2 g/dl (31.0-37.0); MEAN PLATELET VOLUME 11.3 fl (7.0-11.0); MONO # 1.3 (0.1-0.6); MONO % 8.1 % (1.0-6.0); RBC 4.82 10^6/uL (3.5-6.1); RED CELL DISTRIBUTION WIDTH 15.2 % (11.5-14.5); WHITE BLOOD COUNT 15.9 10^3/ul (4.5-11.0)
[2017-08-21 07:23] LABS: ALB/GLOB RATIO 1.1 (1.1-1.8); ALBUMIN 3.8 g/dL (3.0-4.8); CALCIUM 9.4 mg/dL (8.4-10.5)
--- NOTE | 2017-08-21 08:20 | CP.PCM.PN ---
Subjective - Date & Time of Evaluation Date of Evaluation: 08/21/17 Time of Evaluation: 07:00 - Subjective Subjective: Stable in CCU. No CP or SOB. V/S noted. A. flutter vs PAT with VR 30s to 60s now PE: Lungs: rhonchi Cor.: irreg., S1S2 Abd.: soft Ext.: no edema Neuro.: alert I/O= N/A Labs noted: WBC 15,900 LE thalia Dopplers: No DVT BC X2 NG at 3 days ECG 08/20: A.Flutter vs PAT with slow VR, STTW changes c/e ischemia, new CXR: RUL infiltrate Xray ris: Fx. right 3rd and 4th ribs Objective - Vital Signs/Intake and Output Vital Signs (last 24 hours): Temp Pulse Resp BP Pulse Ox 98 F 51 L 24 118/48 L 91 L 08/20/17 06:30 08/21/17 03:00 08/20/17 20:40 08/20/17 06:30 08/20/17 08:50 Intake and Output: 08/21/17 08/21/17 06:59 18:59 Intake Total 250 Balance 250 - Medications Medications: Current Medications Aspirin (Aspirin Chewable) 81 mg PO DAILY [facility] Last Admin: 08/20/17 10:13 Dose: 81 mg Atorvastatin Calcium (Lipitor) 10 mg PO HS [facility] Last Admin: 08/20/17 21:05 Dose: 10 mg Dopamine HCl/Dextrose (Dopamine 400mg/250ml D5w) 400 mg in 250 mls @ 17.18 mls/ hr IV .[id number] PRN; Protocol; 5 MCG/KG/MIN PRN Reason: TITRATE PER MD ORDER Last Admin: 08/21/17 02:00 Dose: 5 mcg/kg/min, 17.18 mls/hr Vancomycin HCl (Vancomycin 1gm) 1 gm in 250 mls @ 167 mls/hr IVPB Q12 JOAO PRN Reason: Protocol Last Admin: 08/20/17 21:05 Dose: 167 mls/hr Meropenem (Merrem Iv 1 Gm Premix) 50 mls @ 100 mls/hr IVPB Q8 JOAO PRN Reason: Protocol Stop: 08/27/17 14:01 Last Admin: 08/21/17 06:13 Dose: 100 mls/hr Morphine Sulfate (Morphine) 1 mg IVP Q3H PRN PRN Reason: Pain, severe (8-10) Last Admin: 08/20/17 20:25 Dose: 1 mg Naproxen (Anaprox Ds) 550 mg PO Q8 PRN PRN Reason: Pain, moderate (4-7) Last Admin: 08/20/17 11:15 Dose: 550 mg Spironolactone (Aldactone) 25 mg PO DAILY [facility] Last Admin: 08/20/17 10:13 Dose: 25 mg Warfarin Sodium (Coumadin) 2 mg PO 1800 JOAO PRN Reason: Protocol Last Admin: 08/17/17 18:00 Dose: Not Given - Labs Labs: 08/21/17 05:55 08/21/17 05:55 PT 23.4 SECONDS (9.4-12.5) H 08/20/17 06:00 INR 2.01 (0.93-1.08) H 08/20/17 06:00 APTT 50.6 Seconds (25.1-36.5) H 08/17/17 10:08 Assessment and Plan - Assessment and Plan (Free Text) Assessment: Initial vague sxs, not feeling well with slow pulse and hypotension/A.Flutter with slow VR Unresponsive episode with rapid VT last night with brief CPR 08/19/16 Chest Pain related to CPR, fx. right 3rd and 4th ribs RUL infiltrate on CXR A. Flutter with slow VR (off digoxin and metoprolol since admission) Chronic AF on warfarin HBP Arthritis Surgeries: GB, Hernia, Hysterectomy Plan: Continue CCU. Await transfer to [facility] CCU for cath and EP evaluation later today. NPO except meds. Hold warfarin. Check INR this AM. AB As per ID and Dr. Ruggiero. Case D/W daughter at the bedside today. Case D/W EP/Dr. Khalil and with Dr. Vernon.
[2017-08-21 08:27] VITALS: TEMP 98; O2SAT 92
[2017-08-21 08:37] LABS: INR 2.57 (0.93-1.08); PROTHROMBIN TIME 30.1 SECONDS (9.4-12.5)
[2017-08-21] MEDS ORDERED: Phytonadione 10 mg/ml Inj (Adult) SC STA (08:47)
[2017-08-21] MEDS: Vancomycin 1gm in NS 250ml 1 GM/250 ML BAG IVPB SCH (09:06)
--- NOTE | 2017-08-21 09:12 | PN ---
DATE: 08/21/2017 PULMONARY NOTE SUBJECTIVE: The patient appears comfortable this morning. She is not short of breath at rest. PHYSICAL EXAMINATION: VITAL SIGNS: Last temperature recorded is 98.0, pulse is 51, respirations 18, last blood pressure recorded is 118/48. Oxygen saturation on nasal cannula is 94%. HEENT: Normocephalic, atraumatic. No JVD. CARDIOVASCULAR: Systolic ejection murmur at the lower left sternal border. Positive S3 gallop. LUNGS: Minimal crackles at the bases. No rhonchi. No wheezing. EXTREMITIES: Mild edema. No cyanosis. No clubbing. Calves are nontender to palpation. GI: Abdomen is soft, nontender and nondistended. Bowel sounds are positive. SKIN: No acute rash. NEUROLOGIC: Limited at the present time. PERTINENT LABORATORY DATA: Chest x-ray was done this morning and reviewed. The chest x-ray is a poor rotated film. However, the right upper lobe infiltrate does appear decreased in size. IMPRESSION: 1. Status post cardiopulmonary resuscitation. 2. Status post ventricular tachycardia, chronic atrial arrhythmias. 3. Questionable aspiration pneumonia - right lung. 4. Mild congestive heart failure. 5. Increasing troponin, rule out myocardial infarction. PLAN: The patient appears comfortable this morning. She is not short of breath at rest. She does state to feeling better overall. I did discuss the case with the night nurse at length. The night nurse stated the patient had a good night. I have also reviewed the chest x-ray. The chest x-ray is a poor rotated film, but appears to show a decrease in the right upper lobe infiltrate. I would continue with the antibiotic coverage as per Infectious Disease. Input by Dr. Leavitt is noted. I would continue with the cardiology evaluation and workup. A significant rise in troponin was noted yesterday. The patient did undergo cardiopulmonary resuscitation, but for a very short period. Clinical status of the patient is certainly improved - compared to a few days ago. However, her overall status/prognosis remains very guarded. I will discuss the above with the entire ICU team in the next few moments. I will also discuss the above with the attending physician. Vicente Nobles MD [facility] # [id number] [facility]
--- NOTE | 2017-08-21 10:43 | CP.CCUPN ---
<Guero Gaspar - Last Filed: 08/21/17 10:40> CCU Subjective - Physician Review Subjective (Free Text): Patient seen and evaluated bedside. No acute issues overnight. Patient says she stil has some pain on inspiration, and soreness in her right chest area form compressions. She also states she is tired. Patient denies shortness of breath, cough, fever, chills or any other complaints at this time. 08/21/17 10:40 CCU Objective - Vital Signs / Intake & Output Vital Signs (Last 4 hours): Vital Signs Pulse Resp BP Pulse Ox 08/21/17 08:20 49 L 22 92 L 08/21/17 08:10 50 L 24 94 L 08/21/17 08:00 50 L 23 126/58 L 93 L 08/21/17 07:50 50 L 27 H 93 L 08/21/17 07:40 49 L 34 H 92 L 08/21/17 07:30 50 L 20 94 L 08/21/17 07:20 50 L 23 94 L 08/21/17 07:10 49 L 24 94 L 08/21/17 07:00 49 L 21 126/61 94 L 08/21/17 06:50 49 L 22 94 L Intake and Output (Last 8hrs): Intake & Output 08/20/17 08/21/17 08/21/17 22:59 06:59 14:59 Intake Total 932 Output Total 100 Balance 832 Weight 201 lb 14.4 oz Intake: IV 452 Right Antecubital 202 Oral 30 Tube Feeding 0 TPN/PPN 0 Blood Product 0 Lipid 0 Albumin 0 Other 450 Output: Urine 100 Urine, Voided 100 Stool 0 Urine/Stool Mix 0 Emesis 0 Oral Regurgitation 0 Other 0 Other: # Voids Urine, Voided 1 # Bowel Movements 0 - Physical Exam Head: Positive for: Atraumatic, Normocephalic Pupils: Positive for: PERRL Extroacular Muscles: Positive for: EOMI Conjunctiva: Positive for: Normal Mouth: Positive for: Moist Mucous Membranes Neck: Positive for: Normal Range of Motion Respiratory/Chest: Positive for: Decreased Breath Sounds. Negative for: Accessory Muscle Use, Wheezes, Rales, Retracting, Rhonchi Cardiovascular: Positive for: Murmurs, Other (external pacing ) Abdomen: Positive for: Normal Bowel Sounds. Negative for: Tenderness, Distention, Peritoneal Signs Back: Positive for: Normal Inspection Upper Extremity: Positive for: Normal Inspection, Cyanosis, Edema Lower Extremity: Positive for: Edema (4+ bipedal edema). Negative for: CALF TENDERNESS Neurological: Positive for: GCS=15, CN II-XII Intact, Speech Normal Skin: Positive for: Warm, Dry, Normal Color. Negative for: Rashes Psychiatric: Positive for: Alert, Oriented x 3, Normal Insight, Normal Concentration - Medications Active Medications: Active Medications Generic Name Dose Route Start Last Admin Trade Name Freq PRN Reason Stop Dose Admin Aspirin 81 mg 08/20/17 10:00 08/21/17 09:06 Aspirin Chewable PO 81 mg DAILY JOAO Administration Atorvastatin Calcium 10 mg 08/17/17 22:00 08/20/17 21:05 Lipitor PO 10 mg HS JOAO Administration Dopamine HCl/Dextrose 400 mg in 250 mls @ 17.18 mls/hr 08/19/17 19:04 02:00 Dopamine 400mg/250ml D5w IV 5 mcg/kg/min .[id number] PRN 17.18 mls/hr TITRATE PER MD ORDER Administration Protocol 5 MCG/KG/MIN Vancomycin HCl 1 gm in 250 mls @ 167 mls/hr 08/20/17 22:00 08/21/17 09:06 Vancomycin 1gm IVPB 167 mls/hr Q12 JOAO Administration Protocol Meropenem 50 mls @ 100 mls/hr 08/20/17 14:00 08/21/17 06:13 Merrem Iv 1 Gm Premix IVPB 08/27/17 14:01 100 mls/hr Q8 JOAO Administration Protocol Morphine Sulfate 1 mg 08/19/17 20:58 08/20/17 20:25 Morphine IVP 1 mg Q3H PRN Administration Pain, severe (8-10) Naproxen 550 mg 08/19/17 20:57 08/20/17 11:15 Anaprox Ds PO 550 mg Q8 PRN Administration Pain, moderate (4-7) Spironolactone 25 mg 08/17/17 11:15 08/21/17 09:06 Aldactone PO 25 mg DAILY JOAO Administration Warfarin Sodium 2 mg 08/17/17 18:00 08/17/17 18:00 Coumadin PO Not Given 1800 [facility] Protocol - Patient Studies Lab Studies: Lab Studies 08/21/17 08/21/17 08/21/17 Range/Units 09:35 08:00 05:55 WBC (4.5-11.0) 10^3/ul RBC (3.5-6.1) 10^6/uL Hgb (12.0-16.0) g/dL Hct (36.0-48.0) % MCV (80.0-105.0) fl MCH (25.0-35.0) pg MCHC (31.0-37.0) g/dl RDW (11.5-14.5) % Plt Count (120.0-450.0) 10^3/uL MPV (7.0-11.0) fl Gran % (50.0-68.0) % Lymph % (Auto) (22.0-35.0) % Swain % (Auto) (1.0-6.0) % Eos % (Auto) (1.5-5.0) % Baso % (Auto) (0.0-3.0) % Gran # (1.4-6.5) Lymph # (Auto) (1.2-3.4) Swain # (Auto) (0.1-0.6) Eos # (Auto) (0.0-0.7) Baso # (Auto) (0.0-2.0) K/mm3 PT 30.1 H (9.4-12.5) SECONDS INR 2.57 H (0.93-1.08) Sodium 138 (132-148) mmol/L Potassium 4.0 (3.6-5.0) mmol/L Chloride 96 L (98-107) mmol/L Carbon Dioxide 31 (21-33) mmol/L Anion Gap 15 (10-20) BUN 29 H (7-21) mg/dL Creatinine 1.1 (0.7-1.2) mg/dl Est GFR ( Amer) 57 Est GFR (Non-Af Amer) 47 Random Glucose 140 H (70-110) mg/dL Calcium 9.4 (8.4-10.5) mg/dL Phosphorus 3.7 (2.5-4.5) mg/dL Magnesium 2.1 (1.7-2.2) mg/dL Total Bilirubin 2.0 H (0.2-1.3) mg/dL AST 53 H (14-36) U/L ALT 38 (7-56) U/L Alkaline Phosphatase 67 (38-126) U/L Troponin I 1.41 H* D ng/mL Total Protein 7.2 (5.8-8.3) g/dL Albumin 3.8 (3.0-4.8) g/dL Globulin 3.4 gm/dL Albumin/Globulin Ratio 1.1 (1.1-1.8) Procalcitonin (0.19-0.49) NG/ML 08/21/17 08/20/17 Range/Units 05:55 09:34 WBC 15.9 H (4.5-11.0) 10^3/ul RBC 4.82 (3.5-6.1) 10^6/uL Hgb 14.7 (12.0-16.0) g/dL Hct 44.3 (36.0-48.0) % MCV 91.9 (80.0-105.0) fl MCH 30.5 (25.0-35.0) pg MCHC 33.2 (31.0-37.0) g/dl RDW 15.2 H (11.5-14.5) % Plt Count 199 (120.0-450.0) 10^3/uL MPV 11.3 H (7.0-11.0) fl Gran % 81.0 H (50.0-68.0) % Lymph % (Auto) 10.6 L (22.0-35.0) % Swain % (Auto) 8.1 H (1.0-6.0) % Eos % (Auto) 0.2 L (1.5-5.0) % Baso % (Auto) 0.1 (0.0-3.0) % Gran # 12.89 H (1.4-6.5) Lymph # (Auto) 1.7 (1.2-3.4) Swain # (Auto) 1.3 H (0.1-0.6) Eos # (Auto) 0.0 (0.0-0.7) Baso # (Auto) 0.01 (0.0-2.0) K/mm3 PT (9.4-12.5) SECONDS INR (0.93-1.08) Sodium (132-148) mmol/L Potassium (3.6-5.0) mmol/L Chloride (98-107) mmol/L Carbon Dioxide (21-33) mmol/L Anion Gap (10-20) BUN (7-21) mg/dL Creatinine (0.7-1.2) mg/dl Est GFR ( Amer) Est GFR (Non-Af Amer) Random Glucose (70-110) mg/dL Calcium (8.4-10.5) mg/dL Phosphorus (2.5-4.5) mg/dL Magnesium (1.7-2.2) mg/dL Total Bilirubin (0.2-1.3) mg/dL AST (14-36) U/L ALT (7-56) U/L Alkaline Phosphatase (38-126) U/L Troponin I ng/mL Total Protein (5.8-8.3) g/dL Albumin (3.0-4.8) g/dL Globulin gm/dL Albumin/Globulin Ratio (1.1-1.8) Procalcitonin 0.05 L (0.19-0.49) NG/ML Laboratory Results - last 24 hr 08/20/17 08/21/17 08/21/17 09:34 05:55 05:55 WBC 15.9 H RBC 4.82 Hgb 14.7 Hct 44.3 MCV 91.9 MCH 30.5 MCHC 33.2 RDW 15.2 H Plt Count 199 MPV 11.3 H Gran % 81.0 H Lymph % (Auto) 10.6 L Swain % (Auto) 8.1 H Eos % (Auto) 0.2 L Baso % (Auto) 0.1 Gran # 12.89 H Lymph # (Auto) 1.7 Swain # (Auto) 1.3 H Eos # (Auto) 0.0 Baso # (Auto) 0.01 PT INR Sodium 138 Potassium 4.0 Chloride 96 L Carbon Dioxide 31 Anion Gap 15 BUN 29 H Creatinine 1.1 Est GFR ( Amer) 57 Est GFR (Non-Af Amer) 47 Random Glucose 140 H Calcium 9.4 Phosphorus 3.7 Magnesium 2.1 Total Bilirubin 2.0 H AST 53 H ALT 38 Alkaline Phosphatase 67 Troponin I Total Protein 7.2 Albumin 3.8 Globulin 3.4 Albumin/Globulin Ratio 1.1 Procalcitonin 0.05 L 08/21/17 08/21/17 08:00 09:35 WBC RBC Hgb Hct MCV MCH MCHC RDW Plt Count MPV Gran % Lymph % (Auto) Swain % (Auto) Eos % (Auto) Baso % (Auto) Gran # Lymph # (Auto) Swain # (Auto) Eos # (Auto) Baso # (Auto) PT 30.1 H INR 2.57 H Sodium Potassium Chloride Carbon Dioxide Anion Gap BUN Creatinine Est GFR ( Amer) Est GFR (Non-Af Amer) Random Glucose Calcium Phosphorus Magnesium Total Bilirubin AST ALT Alkaline Phosphatase Troponin I 1.41 H* D Total Protein Albumin Globulin Albumin/Globulin Ratio Procalcitonin Review of Systems - Cardiovascular Cardiovascular: absent: Chest Pain at Rest, Dyspnea - Respiratory Respiratory: absent: Cough, Dyspnea, Dyspnea on Exertion, Chest Congestion - Gastrointestinal Gastrointestinal: absent: Abdominal Pain - Musculoskeletal Additional comments: pain in right middle ribs Assessment/Plan - Assessment and Plan (Free Text) Assessment: 82 year old female with PMH Afib on coumadin, digoxin, BB, HTN, hyperlipidemia, osteoporosis, athritis s/p [employer] last night for unresponsiveness. Code blue was also called as pt was noted to be pulseless. Pt did not receive any medications at that time, and ROSC and consciousness was regained after 30-60 seconds of CPR. Patient currently waiting to transfer to [facility] for cath and EP procedure. Plan: Neuro: -AAOx3 -continue to monitor for mental status changes Cardio: Aflutter, pulse in the 40s and 50s. -coumadin is on hold -Dopamine gtt at 5 mcg -Echocardiogram is pending -EKG pending reading -Dr. Agarwal, cardiology, will transfer the pt to [facility] for EP evaluation for possible pacemaker placement NSTEMI -EKG pending reading -latest troponin noted to be 1.41 -morphine, o2, nitroglycerin, asa ordered. -beta uvaldo held due to bradycardia, luis inhibitor held due to bp -Dr. Agarwal following HTN -continue home Aldactone Hyperlipidemia -continue home Lipitor ID: Hospital acquired pneumonia vs aspiration pneumonia -CXR shows worsening RUL opacity/infiltrate. Perihilar small patchy opacities more prominent on the right lung -leukocytosis at 15.4 -Dr. Mcgarry consulted, recs appreciated -Vancomycin and Zosyn ordered -BCx2 with gram stain, Urine Cx, sputum cx ordered Pulm: Hospital acquired pneumonia vs aspiration pneumonia -ID is following -continue abx -maintain SpO2 above 95% -lasix 40 IVP -high flow oxygen -incentive spirometer Heme -INR 2.57 -2FFP ordered and type and cross ordered GI: ppx HHD Endo: Maintain euglycemia Musculoskeletal: -right sided chest pain; reproducible with palpation DVT ppx GI ppx Dispo: transfer to [facility] for EP pacemaker placement <Yash Jarvis - Last Filed: 08/21/17 14:09> CCU Objective - Vital Signs / Intake & Output Vital Signs (Last 4 hours): Vital Signs Pulse Resp BP Pulse Ox 08/21/17 10:45 132/68 08/21/17 10:30 51 L 27 H 92 L 08/21/17 10:20 51 L 32 H 92 L 08/21/17 10:10 52 L 40 H 92 L Intake and Output (Last 8hrs): Intake & Output 08/20/17 08/21/17 08/21/17 22:59 06:59 14:59 Intake Total 932 Output Total 100 Balance 832 Weight 201 lb 14.4 oz 201 lb Intake: IV 452 Right Antecubital 202 Oral 30 Tube Feeding 0 TPN/PPN 0 Blood Product 0 Lipid 0 Albumin 0 Other 450 Output: Urine 100 Urine, Voided 100 Stool 0 Urine/Stool Mix 0 Emesis 0 Oral Regurgitation 0 Other 0 Other: # Voids Urine, Voided 1 # Bowel Movements 0 - Patient Studies Lab Studies: Microbiology Studies 08/20/17 07:31 MRSA Culture (Admit) - Final Nose MRSA NOT DETECTED 08/20/17 11:45 Blood Culture - Preliminary Blood-Venous NO GROWTH AFTER 24 HOURS 08/20/17 11:30 Blood Culture - Preliminary Blood-Venous NO GROWTH AFTER 24 HOURS Lab Studies 08/21/17 08/21/17 08/21/17 Range/Units 10:25 09:35 08:00 WBC (4.5-11.0) 10^3/ul RBC (3.5-6.1) 10^6/uL Hgb (12.0-16.0) g/dL Hct (36.0-48.0) % MCV (80.0-105.0) fl MCH (25.0-35.0) pg MCHC (31.0-37.0) g/dl RDW (11.5-14.5) % Plt Count (120.0-450.0) 10^3/uL MPV (7.0-11.0) fl Gran % (50.0-68.0) % Lymph % (Auto) (22.0-35.0) % Swain % (Auto) (1.0-6.0) % Eos % (Auto) (1.5-5.0) % Baso % (Auto) (0.0-3.0) % Gran # (1.4-6.5) Lymph # (Auto) (1.2-3.4) Swain # (Auto) (0.1-0.6) Eos # (Auto) (0.0-0.7) Baso # (Auto) (0.0-2.0) K/mm3 PT 30.1 H (9.4-12.5) SECONDS INR 2.57 H (0.93-1.08) Sodium (132-148) mmol/L Potassium (3.6-5.0) mmol/L Chloride (98-107) mmol/L Carbon Dioxide (21-33) mmol/L Anion Gap (10-20) BUN (7-21) mg/dL Creatinine (0.7-1.2) mg/dl Est GFR ( Amer) Est GFR (Non-Af Amer) Random Glucose (70-110) mg/dL Calcium (8.4-10.5) mg/dL Phosphorus (2.5-4.5) mg/dL Magnesium (1.7-2.2) mg/dL Total Bilirubin (0.2-1.3) mg/dL AST (14-36) U/L ALT (7-56) U/L Alkaline Phosphatase (38-126) U/L Troponin I 1.41 H* D ng/mL Total Protein (5.8-8.3) g/dL Albumin (3.0-4.8) g/dL Globulin gm/dL Albumin/Globulin Ratio (1.1-1.8) Procalcitonin (0.19-0.49) NG/ML Blood Type O POSITIVE Blood Type Confirm Antibody Screen Negative Crossmatch See Detail BBK History Checked No verified bt 08/21/17 08/21/17 08/21/17 Range/Units 06:00 05:55 05:55 WBC 15.9 H (4.5-11.0) 10^3/ul RBC 4.82 (3.5-6.1) 10^6/uL Hgb 14.7 (12.0-16.0) g/dL Hct 44.3 (36.0-48.0) % MCV 91.9 (80.0-105.0) fl MCH 30.5 (25.0-35.0) pg MCHC 33.2 (31.0-37.0) g/dl RDW 15.2 H (11.5-14.5) % Plt Count 199 (120.0-450.0) 10^3/uL MPV 11.3 H (7.0-11.0) fl Gran % 81.0 H (50.0-68.0) % Lymph % (Auto) 10.6 L (22.0-35.0) % Swain % (Auto) 8.1 H (1.0-6.0) % Eos % (Auto) 0.2 L (1.5-5.0) % Baso % (Auto) 0.1 (0.0-3.0) % Gran # 12.89 H (1.4-6.5) Lymph # (Auto) 1.7 (1.2-3.4) Swain # (Auto) 1.3 H (0.1-0.6) Eos # (Auto) 0.0 (0.0-0.7) Baso # (Auto) 0.01 (0.0-2.0) K/mm3 PT (9.4-12.5) SECONDS INR (0.93-1.08) Sodium 138 (132-148) mmol/L Potassium 4.0 (3.6-5.0) mmol/L Chloride 96 L (98-107) mmol/L Carbon Dioxide 31 (21-33) mmol/L Anion Gap 15 (10-20) BUN 29 H (7-21) mg/dL Creatinine 1.1 (0.7-1.2) mg/dl Est GFR ( Amer) 57 Est GFR (Non-Af Amer) 47 Random Glucose 140 H (70-110) mg/dL Calcium 9.4 (8.4-10.5) mg/dL Phosphorus 3.7 (2.5-4.5) mg/dL Magnesium 2.1 (1.7-2.2) mg/dL Total Bilirubin 2.0 H (0.2-1.3) mg/dL AST 53 H (14-36) U/L ALT 38 (7-56) U/L Alkaline Phosphatase 67 (38-126) U/L Troponin I ng/mL Total Protein 7.2 (5.8-8.3) g/dL Albumin 3.8 (3.0-4.8) g/dL Globulin 3.4 gm/dL Albumin/Globulin Ratio 1.1 (1.1-1.8) Procalcitonin (0.19-0.49) NG/ML Blood Type Blood Type Confirm O POSITIVE Antibody Screen Crossmatch BBK History Checked 08/20/17 Range/Units 09:34 WBC (4.5-11.0) 10^3/ul RBC (3.5-6.1) 10^6/uL Hgb (12.0-16.0) g/dL Hct (36.0-48.0) % MCV (80.0-105.0) fl MCH (25.0-35.0) pg MCHC (31.0-37.0) g/dl RDW (11.5-14.5) % Plt Count (120.0-450.0) 10^3/uL MPV (7.0-11.0) fl Gran % (50.0-68.0) % Lymph % (Auto) (22.0-35.0) % Swain % (Auto) (1.0-6.0) % Eos % (Auto) (1.5-5.0) % Baso % (Auto) (0.0-3.0) % Gran # (1.4-6.5) Lymph # (Auto) (1.2-3.4) Swain # (Auto) (0.1-0.6) Eos # (Auto) (0.0-0.7) Baso # (Auto) (0.0-2.0) K/mm3 PT (9.4-12.5) SECONDS INR (0.93-1.08) Sodium (132-148) mmol/L Potassium (3.6-5.0) mmol/L Chloride (98-107) mmol/L Carbon Dioxide (21-33) mmol/L Anion Gap (10-20) BUN (7-21) mg/dL Creatinine (0.7-1.2) mg/dl Est GFR ( Amer) Est GFR (Non-Af Amer) Random Glucose (70-110) mg/dL Calcium (8.4-10.5) mg/dL Phosphorus (2.5-4.5) mg/dL Magnesium (1.7-2.2) mg/dL Total Bilirubin (0.2-1.3) mg/dL AST (14-36) U/L ALT (7-56) U/L Alkaline Phosphatase (38-126) U/L Troponin I ng/mL Total Protein (5.8-8.3) g/dL Albumin (3.0-4.8) g/dL Globulin gm/dL Albumin/Globulin Ratio (1.1-1.8) Procalcitonin 0.05 L (0.19-0.49) NG/ML Blood Type Blood Type Confirm Antibody Screen Crossmatch BBK History Checked Laboratory Results - last 24 hr 08/20/17 08/21/17 08/21/17 09:34 05:55 05:55 WBC 15.9 H RBC 4.82 Hgb 14.7 Hct 44.3 MCV 91.9 MCH 30.5 MCHC 33.2 RDW 15.2 H Plt Count 199 MPV 11.3 H Gran % 81.0 H Lymph % (Auto) 10.6 L Swain % (Auto) 8.1 H Eos % (Auto) 0.2 L Baso % (Auto) 0.1 Gran # 12.89 H Lymph # (Auto) 1.7 Swain # (Auto) 1.3 H Eos # (Auto) 0.0 Baso # (Auto) 0.01 PT INR Sodium 138 Potassium 4.0 Chloride 96 L Carbon Dioxide 31 Anion Gap 15 BUN 29 H Creatinine 1.1 Est GFR ( Amer) 57 Est GFR (Non-Af Amer) 47 Random Glucose 140 H Calcium 9.4 Phosphorus 3.7 Magnesium 2.1 Total Bilirubin 2.0 H AST 53 H ALT 38 Alkaline Phosphatase 67 Troponin I Total Protein 7.2 Albumin 3.8 Globulin 3.4 Albumin/Globulin Ratio 1.1 Procalcitonin 0.05 L Blood Type Blood Type Confirm Antibody Screen Crossmatch BBK History Checked 08/21/17 08/21/17 08/21/17 06:00 08:00 09:35 WBC RBC Hgb Hct MCV MCH MCHC RDW Plt Count MPV Gran % Lymph % (Auto) Swain % (Auto) Eos % (Auto) Baso % (Auto) Gran # Lymph # (Auto) Swain # (Auto) Eos # (Auto) Baso # (Auto) PT 30.1 H INR 2.57 H Sodium Potassium Chloride Carbon Dioxide Anion Gap BUN Creatinine Est GFR ( Amer) Est GFR (Non-Af Amer) Random Glucose Calcium Phosphorus Magnesium Total Bilirubin AST ALT Alkaline Phosphatase Troponin I 1.41 H* D Total Protein Albumin Globulin Albumin/Globulin Ratio Procalcitonin Blood Type Blood Type Confirm O POSITIVE Antibody Screen Crossmatch BBK History Checked 08/21/17 10:25 WBC RBC Hgb Hct MCV MCH MCHC RDW Plt Count MPV Gran % Lymph % (Auto) Swain % (Auto) Eos % (Auto) Baso % (Auto) Gran # Lymph # (Auto) Swain # (Auto) Eos # (Auto) Baso # (Auto) PT INR Sodium Potassium Chloride Carbon Dioxide Anion Gap BUN Creatinine Est GFR ( Amer) Est GFR (Non-Af Amer) Random Glucose Calcium Phosphorus Magnesium Total Bilirubin AST ALT Alkaline Phosphatase Troponin I Total Protein Albumin Globulin Albumin/Globulin Ratio Procalcitonin Blood Type O POSITIVE Blood Type Confirm Antibody Screen Negative Crossmatch See Detail BBK History Checked No verified bt Attending/Attestation - Attestation I have personally seen and examined this patient.: Yes I have fully participated in the care of the patient.: Yes I have reviewed all pertinent clinical information: Yes Notes (Text): 08/21/17 14:08 The patient was seen and examined at the bedside. Patient care was discussed with resident and ICU team in rounds. Medical records, lab studies, and imaging were reviewed and management issues were discussed and formulated. Agree with above treatment plans as outlined in 's note with addition of the following: Pt is being transferred this morning to another hospital for EP work up and possible PPM placement as per cardiology team who are following closely.
[2017-08-21 10:46] VITALS: BP 132/68
--- NOTE | 2017-08-21 10:54 | CARD ---
APPROVED REPORT EXAM: Two-dimensional and M-mode echocardiogram with Doppler and color Doppler. Other Information Quality : AverageRhythm : INDICATION Acute VT , VT, bradyarrhythmias. 2D DIMENSIONS Left Atrium (2D)4.8 (1.6-4.0cm)IVSd1.0 (0.7-1.1cm) LVDd4.9 (3.9-5.9cm)PWd1.2 (0.7-1.1cm) M-Mode DIMENSIONS Aortic Root3.50 (2.2-3.7cm)Aortic Cusp Exc.1.50 (1.5-2.0cm) Aortic Valve AoV Peak Ugynsmvn268.0cm/Trina Peak GR.11mmHg Mitral Valve E/A ratio0.0 TDI E/Lateral E'0.0E/Medial E'0.0 Pulmonary Valve PV Peak Tidlfdws736.0cm/sPV Peak Grad.5mmHg Tricuspid Valve TR Peak Myxfsubj473us/sRAP [id number] Peak Gr.67mmHg [id number] LEFT VENTRICLE The left ventricle is normal size. There is normal left ventricular wall thickness. Left ventricle systolic function is mildly impaired. The Ejection Fraction is -40-45%. The apex appears akinetic. RIGHT VENTRICLE The right ventricle is normal size. ATRIA The left atrium is moderately dilated. The right atrium is mildly dilated. The interatrial septum is intact with no evidence for an atrial septal defect. AORTIC VALVE The aortic valve is normal in structure. There is trace aortic regurgitation. MITRAL VALVE The mitral valve is normal in structure. Mitral regurgitation is mild. TRICUSPID VALVE The tricuspid valve is normal in structure. There is moderate tricuspid regurgitation. There is severe pulmonary hypertension. PULMONIC VALVE The pulmonic valve is not well visualized. GREAT VESSELS The aortic root is normal in size. PERICARDIAL EFFUSION There is no pericardial effusion. <Conclusion> The left ventricle is normal size. There is normal left ventricular wall thickness. Left ventricle systolic function is mildly impaired. The Ejection Fraction is -40-45%. The LV apex appears akinetic. Mitral regurgitation is mild. There is moderate tricuspid regurgitation. There is severe pulmonary hypertension.
--- NOTE | 2017-08-21 10:58 | CP.PCM.PN ---
Subjective - Date & Time of Evaluation Date of Evaluation: 08/21/17 Time of Evaluation: 10:00 - Subjective Subjective: Still on high flow oxygen, for cardiac procedure today, no fevers, no cough. Objective - Vital Signs/Intake and Output Vital Signs (last 24 hours): Temp Pulse Resp BP Pulse Ox 98 F 51 L 24 118/48 L 91 L 08/20/17 06:30 08/21/17 03:00 08/20/17 20:40 08/20/17 06:30 08/20/17 08:50 Intake and Output: 08/20/17 08/21/17 18:59 06:59 Intake Total 659 250 Output Total 0 Balance 659 250 - Medications Medications: Current Medications Aspirin (Aspirin Chewable) 81 mg PO DAILY [facility] Last Admin: 08/20/17 10:13 Dose: 81 mg Atorvastatin Calcium (Lipitor) 10 mg PO HS [facility] Last Admin: 08/20/17 21:05 Dose: 10 mg Dopamine HCl/Dextrose (Dopamine 400mg/250ml D5w) 400 mg in 250 mls @ 17.18 mls/ hr IV .[id number] PRN; Protocol; 5 MCG/KG/MIN PRN Reason: TITRATE PER MD ORDER Last Admin: 08/21/17 02:00 Dose: 5 mcg/kg/min, 17.18 mls/hr Vancomycin HCl (Vancomycin 1gm) 1 gm in 250 mls @ 167 mls/hr IVPB Q12 JOAO PRN Reason: Protocol Last Admin: 08/20/17 21:05 Dose: 167 mls/hr Meropenem (Merrem Iv 1 Gm Premix) 50 mls @ 100 mls/hr IVPB Q8 [facility] PRN Reason: Protocol Stop: 08/27/17 14:01 Last Admin: 08/21/17 06:13 Dose: 100 mls/hr Morphine Sulfate (Morphine) 1 mg IVP Q3H PRN PRN Reason: Pain, severe (8-10) Last Admin: 08/20/17 20:25 Dose: 1 mg Naproxen (Anaprox Ds) 550 mg PO Q8 PRN PRN Reason: Pain, moderate (4-7) Last Admin: 08/20/17 11:15 Dose: 550 mg Spironolactone (Aldactone) 25 mg PO DAILY [facility] Last Admin: 08/20/17 10:13 Dose: 25 mg Warfarin Sodium (Coumadin) 2 mg PO 1800 JOAO PRN Reason: Protocol Last Admin: 08/17/17 18:00 Dose: Not Given - Labs Labs: 08/20/17 06:00 08/20/17 06:00 PT 23.4 SECONDS (9.4-12.5) H 08/20/17 06:00 INR 2.01 (0.93-1.08) H 08/20/17 06:00 APTT 50.6 Seconds (25.1-36.5) H 08/17/17 10:08 - Constitutional Appears: Chronically Ill - Head Exam Head Exam: NORMAL INSPECTION - ENT Exam ENT Exam: Mucous Membranes Moist - Neck Exam Neck Exam: absent: Meningismus - Respiratory Exam Respiratory Exam: Decreased Breath Sounds - Cardiovascular Exam Cardiovascular Exam: +S1, +S2 - GI/Abdominal Exam GI & Abdominal Exam: Soft. absent: Tenderness Assessment and Plan - Assessment and Plan (Free Text) Plan: Assessment SIRS, R/O sepsis from HCAP on left upper lobe in this patient with acute on chronic CHF obesity with BMI 37 atrial fibrillation on anticoagulation Plan continue Merrem and Vancomycin day 2 pending final blood, sputum cx, urine cx; will repeat CXR tomorrow follow up Pulmonary evaluation will continue to monitor clinically
--- NOTE | 2017-08-21 11:06 | CARD ---
APPROVED REPORT EKG Measurement Heart [id number] P90 [id number] <Conclusion> Slower A. Flutter vs PAT with high grade AVB and VR 38 BPM RBBB pattern STTW changes.
[2017-08-21 11:08] VITALS: PULSE 51; RESP 27
--- NOTE | 2017-08-21 12:17 | RAD ---
HISTORY: follow up COMPARISON: 08/19/2017 FINDINGS: LUNGS: No active pulmonary disease. PLEURA: No significant pleural effusion identified, no pneumothorax apparent. CARDIOVASCULAR: Mild cardiomegaly and mild vascular congestion OSSEOUS STRUCTURES: No significant abnormalities. VISUALIZED UPPER ABDOMEN: Normal. OTHER FINDINGS: None. IMPRESSION: Mild cardiomegaly and mild vascular congestion
--- NOTE | 2017-08-21 14:13 | PN ---
DATE: SUBJECTIVE: The patient has no complaints of any chest pain. No shortness of breath. No headaches or dizziness. PHYSICAL EXAMINATION: VITAL SIGNS: Temperature is 98, pulse of 49, blood pressure 126/58, respirations 22. GENERAL: The patient is lying in bed, flat, comfortable. HEENT: No oral lesion. Anicteric sclerae. Moist mucosa. NECK: No JVD, adenopathy, or thyromegaly. CARDIOVASCULAR: S1 and S2, regular. No murmurs, rubs, or gallops. LUNGS: Clear to auscultation bilaterally. No wheeze, rales, or rhonchi. ABDOMEN: Bowel sounds are positive. Soft, nontender and nondistended. EXTREMITIES: No cyanosis, clubbing or edema. RIBS: There is fracture of the right third and fourth ribs. LABORATORY DATA: White count of 15.9, hemoglobin of 14.7. Creatinine is 1.1. ASSESSMENT 1. Bradycardia. 2. Lower extremity edema, improved. 3. Congestive heart failure secondary to systolic dysfunction, stable. 4. Dyslipidemia. 5. Osteoarthritis. 6. Chronic obstructive pulmonary disease. PLAN: The patient is currently comfortable. She has a fracture that is causing her to have chest pain. The patient is awaiting to go to [facility] for EPS study and possible pacemaker. The patient is on Naprosyn as needed. She is going to continue on Aldactone. The patient is on dopamine for the bradycardia. The patient is on vancomycin for antibiotics. She had an abnormal chest x-ray. Jw Ruggiero MD
== END 2017-08-21 11:18 | disposition short-term general hospital (02) | DRG 280 ==
LOC: ED 09:54 → ERH 11:47 → 3RSO 15:30 → CCU 08-19 19:09
PROVIDERS: ADMIT Internal Medicine Nephrology; ATTEND Internal Medicine Nephrology
PROC: 5A12012 Performance of Cardiac Output, Single, Manual (ICD-10-PCS; principal; 2017-08-20)
DX: I49.5 Sick sinus syndrome (principal); I50.23 Acute on chronic systolic (congestive) heart failure; I21.4 Non-ST elevation (NSTEMI) myocardial infarction; J69.0 Pneumonitis due to inhalation of food and vomit; I47.2 Ventricular tachycardia; I95.9 Hypotension, unspecified; I11.0 Hypertensive heart disease with heart failure; I48.92 Unspecified atrial flutter; I48.2 Chronic atrial fibrillation; I46.9 Cardiac arrest, cause unspecified; S22.41XA Multiple fractures of ribs, right side, initial encounter for closed fracture; M19.90 Unspecified osteoarthritis, unspecified site; K59.00 Constipation, unspecified; E78.5 Hyperlipidemia, unspecified; M81.0 Age-related osteoporosis without current pathological fracture; I08.0 Rheumatic disorders of both mitral and aortic valves; Y84.8 Other medical procedures as the cause of abnormal reaction of the patient, or of later complication, without mention of misadventure at the time of the procedure; E66.9 Obesity, unspecified; Z68.37 Body mass index [BMI] 37.0-37.9, adult; Z79.01 Long term (current) use of anticoagulants; Z91.81 History of falling; Z87.440 Personal history of urinary (tract) infections

== ENCOUNTER 2017-08-27 19:07 | Inpatient (IN) | payer MEDICARE ==
[2017-08-27] MEDS ORDERED: Morphine 2 mg/ml ISec IVP PRN (20:52)
[2017-08-27 23:26] VITALS: BMI 38.3
[2017-08-28] MEDS: Morphine 4 mg/ml ISec IVP PRN ×2 (06:49→15:56)
[2017-08-28] MEDS: Albuterol-Ipratrop 3 mg / 0.5 (3 ml) UD IH SCH ×3 (07:20→21:15)
[2017-08-28] MEDS: Metoprolol Succinate 25 mg XL Tab PO SCH (07:50)
--- NOTE | 2017-08-28 08:15 | CP.PCM.PN ---
Subjective - Date & Time of Evaluation Date of Evaluation: 08/28/17 Time of Evaluation: 07:00 - Subjective Subjective: Stable on TCU. S/P EP Eval and ICD at [facility]. S/P cath with mod. CAD and apical infarct > med. tx. + Chest Wall pain s/p brief CPR. + ICD pocket hematoma. V/S noted. PE: Lungs: clear Cor.: S1S2 Abd.: soft Ext.: no edema Neuro.: alert Labs, INR, ECG, CXR ordered. Objective - Vital Signs/Intake and Output Vital Signs (last 24 hours): Temp Pulse Resp BP Pulse Ox 97.9 F 95 H 22 120/73 83 L 08/27/17 22:49 08/28/17 07:50 08/27/17 22:49 08/28/17 07:50 08/27/17 20:15 - Medications Medications: Current Medications Albuterol/Ipratropium (Duoneb 3 Mg/0.5 Mg (3 Ml) Ud) 3 ml IH TIDRESP [facility] Last Admin: 08/28/17 07:20 Dose: 3 ml Atorvastatin Calcium (Lipitor) 10 mg PO DAILY [facility] PRN Reason: Protocol Lisinopril (Zestril) 5 mg PO DAILY [facility] PRN Reason: Protocol Metoprolol Succinate (Toprol Xl) 25 mg PO BRK [facility] PRN Reason: Protocol Last Admin: 08/28/17 07:50 Dose: 25 mg Morphine Sulfate (Morphine) 2 mg IVP Q4 PRN; Protocol PRN Reason: PAIN SEVERE [8-10] Last Admin: 08/28/17 06:49 Dose: 2 mg Oxycodone/Acetaminophen (Percocet 5/325 Mg Tab) 1 tab PO Q6H PRN; Protocol PRN Reason: moderate pain Stop: 08/30/17 20:53 Spironolactone (Aldactone) 25 mg PO DAILY [facility] PRN Reason: Protocol Assessment and Plan - Assessment and Plan (Free Text) Assessment: A. Flutter with slow VR VT episode/S/P brief CPR with rib fx. ICD implant last week. Large ICD pocket hematoma, CAD/moderate CAD and apical infarct (? embolic) on cath last week Chronic AF was on chronic warfarin HBP Arthritis Surgeries: GB, Hysterectomy, Hernia Plan: Check: INR, ECG, PA/Lat CXR, Labs today Hld warfarin for now b/o large ICD pocket hematoma OOB as lon/PT/Rehab efforts Analgesics for rib fx. Review old records Will follow.
[2017-08-28 09:03] LABS: BASO # 0.02 K/mm3 (0.0-2.0); BASO % 0.2 % (0.0-3.0); EOS # 0.1 (0.0-0.7); EOS % 0.7 % (1.5-5.0); GRAN # 9.66 (1.4-6.5); GRAN % 79.5 % (50.0-68.0); HEMOGLOBIN 11.9 g/dL (12.0-16.0); LYMPH # 1.6 (1.2-3.4); LYMPH % 13.1 % (22.0-35.0); MEAN CELL VOLUME 93.2 fl (80.0-105.0); MEAN CORPUSCULAR HEMOGLOBIN 29.8 pg (25.0-35.0); MEAN PLATELET VOLUME 10.9 fl (7.0-11.0); MONO # 0.8 (0.1-0.6); MONO % 6.5 % (1.0-6.0); RBC 3.99 10^6/uL (3.5-6.1); RED CELL DISTRIBUTION WIDTH 15.4 % (11.5-14.5); WHITE BLOOD COUNT 12.2 10^3/ul (4.5-11.0)
[2017-08-28 09:08] LABS: INR 1.31 (0.93-1.08); PROTHROMBIN TIME 15.1 SECONDS (9.4-12.5)
[2017-08-28 09:19] LABS: ALB/GLOB RATIO 1.1 (1.1-1.8); ALBUMIN 3.2 g/dL (3.0-4.8); ALT/SGPT 38 U/L (7-56); AST/SGOT 35 U/L (14-36); BLOOD UREA NITROGEN 14 mg/dL (7-21); CALCIUM 9.8 mg/dL (8.4-10.5); GFR AFRICAN-AMERICAN > 60; GFR NON-AFRICAN AMERICAN > 60
--- NOTE | 2017-08-28 16:13 | PN ---
DATE: 08/28/2017 SUBJECTIVE: This is an 82-year-old female who is coming from [facility] after she had a pacemaker placed. The initial H and P that was dictated on 08/18/2017 was reviewed . The patient has no complaints of any chest pain. No shortness of breath. No headaches or dizziness. She does have some confusion. PHYSICAL EXAMINATION GENERAL: The patient is currently comfortable. VITAL SIGNS: Temperature is 97.9, pulse is 76, blood pressure is 100/60, respirations 22. HEENT: No oral lesion. Anicteric sclerae. Moist mucosa. NECK: No JVD, adenopathy, or thyromegaly. CARDIOVASCULAR: S1 and S2, regular. No murmurs, rubs, or gallops. CHEST: There is a large ecchymotic area in the left side of the chest. ABDOMEN: Bowel sounds are positive. Soft, nontender and nondistended. EXTREMITIES: No cyanosis, clubbing or edema. LABORATORY DATA: White count of 12.2, hemoglobin is 11.9. INR is 1.3. ASSESSMENT 1. Bradycardia 2. Chronic atrial fibrillation. 3. Status post implantable cardioverter-defibrillator placement. 4. Congestive heart failure secondary to systolic dysfunction, stable. 5. Dyslipidemia. 6. Osteoarthritis. 7. Chronic obstructive pulmonary disease. 8. Left chest hematoma. 9. Coronary artery disease. 10. History of ventricular tachycardia. 11. Right third and fourth rib fractures. PLAN: The patient is on Aldactone. Continues on Lipitor for dyslipidemia. The patient is on morphine for pain. She is going to continue with metoprolol, is on lisinopril. The patient's anticoagulation is on hold, I will get Dr. Vrenon to follow the patient. I did speak to this morning regarding the case. Jw Ruggiero MD MTDD
--- NOTE | 2017-08-28 20:54 | CARD ---
APPROVED REPORT EKG Measurement Heart [id number] <Conclusion> Electronic ventricular pacemaker
[2017-08-29] MEDS: Albuterol-Ipratrop 3 mg / 0.5 (3 ml) UD IH SCH ×3 (07:56→20:27)
[2017-08-29] MEDS: Metoprolol Succinate 25 mg XL Tab PO SCH (08:07)
[2017-08-29 09:16] LABS: INR 1.31 (0.93-1.08); PROTHROMBIN TIME 15.1 SECONDS (9.4-12.5)
--- NOTE | 2017-08-29 10:09 | RAD ---
HISTORY: S/P ICD implant, pocket hematoma COMPARISON: No prior. TECHNIQUE: Chest PA and lateral FINDINGS: LUNGS: There is a left-sided pacemaker. There is no pneumothorax PLEURA: Small right-sided pleural effusion CARDIOVASCULAR: Mild cardiomegaly OSSEOUS STRUCTURES: No significant abnormalities. VISUALIZED UPPER ABDOMEN: Normal. OTHER FINDINGS: None. IMPRESSION: Small right pleural effusion. New left-sided pacemaker. No pneumothorax
[2017-08-29] MEDS: Oxycodone/Acetaminophen 5/325 mg Tab PO PRN ×2 (12:53→23:13)
--- NOTE | 2017-08-29 15:44 | PN ---
DATE: 08/29/2017 SUBJECTIVE: The patient is seen lying on stretcher in Transitional Care Unit. She recently returned from a chest x-ray. She is feeling somewhat better. She denies any palpitations. CURRENT MEDICATIONS: Remain Aldactone 25 mg daily, DuoNeb inhaler, Lipitor 10 mg daily, Toprol XL 25 mg daily, and Zestril 5 mg daily. OBJECTIVE: GENERAL: She is an elderly woman who appears comfortable at rest. VITAL SIGNS: Her blood pressure is 110/60 with pulse of 68 and irregularly regular, respirations are 14. She is afebrile. HEENT: No JVD. CHEST: Few scattered rhonchi heard. HEART: PMI displaced laterally with systolic murmur in the left sternal border. ABDOMEN: Soft, nontender, normoactive bowel sounds. EXTREMITIES: Trace ankle edema. Pacemaker site has a small to moderate pocket hematoma which appears improved. Extensive ecchymosis is present as well. DIAGNOSTIC DATA: INR is 1.31. Chest x-ray reveals a small right pleural effusion with increased cardiac silhouette, unchanged from previous and no significant congestive changes noted. IMPRESSION: 1. Conduction system disease, status post device implant. 2. History of recent ventricular tachycardia, status post implantable cardioverter-defibrillator implant. 3. Pocket hematoma, appears improved. 4. Apical infarct with moderate coronary artery disease. 5. Chronic atrial fibrillation. RECOMMENDATIONS: Gradual resumption of anticoagulant therapy will be planned. Close monitoring of her pocket hematoma and INR will be planned as well. Target INR of 2 to 2.5 would be appropriate at this time. If needed, gradual increase in her metoprolol dose can be planned as well for heart rate control. We will continue to follow and make further further recommendations as appropriate. Toño Vernon MD
[2017-08-30 06:36] LABS: INR 1.31 (0.93-1.08); PROTHROMBIN TIME 15.1 SECONDS (9.4-12.5)
[2017-08-30] MEDS: Albuterol-Ipratrop 3 mg / 0.5 (3 ml) UD IH SCH ×3 (07:18→20:35)
[2017-08-30] MEDS: Metoprolol Succinate 25 mg XL Tab PO SCH (08:21)
[2017-08-30] MEDS: Oxycodone/Acetaminophen 5/325 mg Tab PO PRN (09:50)
--- NOTE | 2017-08-30 10:58 | CP.PCM.PN ---
Subjective - Date & Time of Evaluation Date of Evaluation: 08/30/17 Time of Evaluation: 07:00 - Subjective Subjective: Stable on TCU. S/P EP Eval and ICD at [facility]. S/P cath with mod. CAD and apical infarct > med. tx. + Chest Wall pain s/p brief CPR. + ICD pocket hematoma. V/S noted. P = 70 PE: Lungs: clear Cor.: S1S2 Abd.: soft Ext.: no edema Neuro.: alert Pocket hematoma and ecchymoses noted. Labs noted: INR 1.31, K+= 3.5 CXR 08/29 noted Objective - Vital Signs/Intake and Output Vital Signs (last 24 hours): Temp Pulse Resp BP Pulse Ox 97.8 F 70 18 95/48 L 95 08/29/17 16:00 08/30/17 08:21 08/29/17 16:00 08/30/17 08:21 08/29/17 16:00 - Medications Medications: Current Medications Albuterol/Ipratropium (Duoneb 3 Mg/0.5 Mg (3 Ml) Ud) 3 ml IH TIDRESP [facility] Last Admin: 08/30/17 07:18 Dose: 3 ml Atorvastatin Calcium (Lipitor) 10 mg PO 1730 [facility] PRN Reason: Protocol Last Admin: 08/29/17 17:36 Dose: 10 mg Lisinopril (Zestril) 5 mg PO DAILY [facility] PRN Reason: Protocol Last Admin: 08/29/17 09:49 Dose: 5 mg Metoprolol Succinate (Toprol Xl) 25 mg PO BRK [facility] PRN Reason: Protocol Last Admin: 08/30/17 08:21 Dose: Not Given Morphine Sulfate (Morphine) 2 mg IVP Q4 PRN; Protocol PRN Reason: PAIN SEVERE [8-10] Last Admin: 08/28/17 15:56 Dose: 2 mg Oxycodone/Acetaminophen (Percocet 5/325 Mg Tab) 1 tab PO Q6H PRN; Protocol PRN Reason: moderate pain Stop: 08/30/17 20:53 Last Admin: 08/30/17 09:50 Dose: 1 tab Spironolactone (Aldactone) 25 mg PO DAILY [facility] PRN Reason: Protocol Last Admin: 08/29/17 09:48 Dose: 25 mg Warfarin Sodium (Coumadin) 2.5 mg PO 1800 [facility] PRN Reason: Protocol Last Admin: 08/29/17 17:35 Dose: 2.5 mg - Labs Labs: 08/28/17 08:30 08/28/17 08:30 PT 15.1 SECONDS (9.4-12.5) H 08/30/17 06:00 INR 1.31 (0.93-1.08) H 08/30/17 06:00 Assessment and Plan - Assessment and Plan (Free Text) Assessment: A. Flutter with slow VR VT episode/S/P brief CPR with rib fx. ICD implant last week. Large ICD pocket hematoma, CAD/moderate CAD and apical infarct (? embolic) on cath last week Chronic AF was on chronic warfarin HBP Arthritis Surgeries: GB, Hysterectomy, Hernia Plan: Daily INR's Lasix 20 daily PO KCL OOB as lon/PT/Rehab efforts Analgesics for rib fx. Will follow.
[2017-08-30] MEDS: Potassium Chloride 20 mEq ER Tab PO SCH ×2 (11:14→17:44)
--- NOTE | 2017-08-30 22:17 | PN ---
DATE: SUBJECTIVE: Patient has no complaints of any chest pain. No shortness of breath. No headaches. OBJECTIVE: VITAL SIGNS: Temperature is 97.9, pulse of 94, blood pressure is 103/57, respirations of 20. GENERAL: The patient is lying in bed, flat, comfortable. HEENT: No oral lesion. Anicteric sclerae. Moist mucosa. NECK: No JVD, adenopathy, or thyromegaly. CARDIOVASCULAR: S1 and S2, regular. No murmurs, rubs, or gallops. LUNGS: Clear to auscultation bilaterally. No wheeze, rales, or rhonchi. ABDOMEN: Bowel sounds are positive, soft, nontender, and nondistended. EXTREMITIES: No cyanosis, clubbing, or edema. LABORATORY DATA: White count of 12.2, hemoglobin of 11.9. Creatinine is 0.7. Potassium is 3.5. Chest x-ray shows small right pleural effusion. There is a new left-sided pacemaker. ASSESSMENT: 1. Status post implantable cardioverter-defibrillator placement. 2. Left chest hematoma. 3. Coronary artery disease. 4. Atrial fibrillation, on Coumadin. 5. Dyslipidemia. 6. Osteoarthritis. 7. Chronic obstructive pulmonary disease. 8. Right third and fourth rib fractures. PLAN: The patient is getting physical therapy. She is on Coumadin that was restarted by Dr. Vernon. The patient's INR is subtherapeutic at 1.3. The patient is on morphine for pain and is on Percocet for pain as well. I did advise the patient's daughter at the bedside to get her mother to take less of the IV morphine. The patient is on lisinopril for hypertension. She is on a regular diet. She is getting physical therapy. Jw Ruggiero MD
[2017-08-31 07:19] LABS: INR 1.31 (0.93-1.08); PROTHROMBIN TIME 15.2 SECONDS (9.4-12.5)
[2017-08-31] MEDS: Oxycodone/Acetaminophen 5/325 mg Tab PO PRN ×2 (07:24→17:29)
[2017-08-31] MEDS: Metoprolol Succinate 25 mg XL Tab PO SCH (07:25)
[2017-08-31] MEDS: Potassium Chloride 20 mEq ER Tab PO SCH ×3 (07:25→17:24)
[2017-08-31] MEDS: Albuterol-Ipratrop 3 mg / 0.5 (3 ml) UD IH SCH ×3 (07:30→20:09)
[2017-08-31 07:43] LABS: BLOOD UREA NITROGEN 17 mg/dL (7-21); CALCIUM 9.7 mg/dL (8.4-10.5); GFR AFRICAN-AMERICAN > 60; GFR NON-AFRICAN AMERICAN > 60
--- NOTE | 2017-08-31 07:57 | CP.PCM.PN ---
Subjective - Date & Time of Evaluation Date of Evaluation: 08/31/17 Time of Evaluation: 07:00 - Subjective Subjective: Stable on TCU. S/P EP Eval and ICD at [facility]. S/P cath with mod. CAD and apical infarct > med. tx. + Chest Wall pain with rib fx. s/p brief CPR. + ICD pocket hematoma. V/S noted. P = 70 PE: Lungs: clear Cor.: S1S2 Abd.: soft Ext.: no edema Neuro.: alert Pocket hematoma and ecchymoses noted. Labs noted: INR 1.31, K+= 4.3 CXR 08/29 noted Objective - Vital Signs/Intake and Output Vital Signs (last 24 hours): Temp Pulse Resp BP Pulse Ox 97.9 F 69 20 105/53 L 97 08/30/17 16:00 08/31/17 07:25 08/30/17 16:00 08/31/17 07:25 08/30/17 16:00 Intake and Output: 08/31/17 08/31/17 06:59 18:59 Intake Total 240 Balance 240 - Medications Medications: Current Medications Albuterol/Ipratropium (Duoneb 3 Mg/0.5 Mg (3 Ml) Ud) 3 ml IH TIDRESP [facility] Last Admin: 08/31/17 07:30 Dose: Not Given Atorvastatin Calcium (Lipitor) 10 mg PO 1730 [facility] PRN Reason: Protocol Last Admin: 08/30/17 17:44 Dose: 10 mg Furosemide (Lasix) 20 mg PO DAILY [facility] Last Admin: 08/30/17 11:14 Dose: 20 mg Lisinopril (Zestril) 5 mg PO DAILY [facility] PRN Reason: Protocol Last Admin: 08/30/17 11:12 Dose: Not Given Metoprolol Succinate (Toprol Xl) 25 mg PO BRK [facility] PRN Reason: Protocol Last Admin: 08/31/17 07:25 Dose: Not Given Morphine Sulfate (Morphine) 2 mg IVP Q4 PRN; Protocol PRN Reason: PAIN SEVERE [8-10] Last Admin: 08/28/17 15:56 Dose: 2 mg Oxycodone/Acetaminophen (Percocet 5/325 Mg Tab) 1 tab PO Q6H PRN; Protocol PRN Reason: moderate pain Last Admin: 08/31/17 07:24 Dose: 1 tab Potassium Chloride (K-Dur 20 Meq Er Tab) 20 meq PO BID [facility] Last Admin: 08/31/17 07:25 Dose: 20 meq Spironolactone (Aldactone) 25 mg PO DAILY [facility] PRN Reason: Protocol Last Admin: 08/30/17 11:11 Dose: Not Given Warfarin Sodium (Coumadin) 3 mg PO 1800 [facility] PRN Reason: Protocol - Labs Labs: 08/28/17 08:30 08/31/17 06:30 PT 15.2 SECONDS (9.4-12.5) H 08/31/17 06:30 INR 1.31 (0.93-1.08) H 08/31/17 06:30 Assessment and Plan - Assessment and Plan (Free Text) Assessment: A. Flutter with slow VR VT episode/S/P brief CPR with rib fx. ICD implant last week. Large ICD pocket hematoma, CAD/moderate CAD and apical infarct (? embolic) on cath last week Chronic AF was on chronic warfarin HBP Arthritis Surgeries: GB, Hysterectomy, Hernia Plan: Increase warf. to 3 mgg/day. Daily INR's Lasix 20 daily PO KCL OOB as lon/PT/Rehab efforts Analgesics for rib fx. Will follow.
--- NOTE | 2017-08-31 23:50 | PN ---
DATE: SUBJECTIVE: The patient has no complaints of any chest pain. No shortness of breath. No headaches. PHYSICAL EXAMINATION: VITAL SIGNS: Temperature is 97.9, pulse is 72, blood pressure 100/56, respirations 20. GENERAL: The patient is lying in bed, flat, comfortable. HEENT: No oral lesion. Anicteric sclerae. Moist mucosa. NECK: No JVD, adenopathy, or thyromegaly. CARDIOVASCULAR: S1 and S2, regular. No murmurs, rubs, or gallops. LUNGS: Clear to auscultation bilaterally. No wheeze, rales, or rhonchi. ABDOMEN: Bowel sounds are positive, soft, nontender and nondistended. EXTREMITIES: No cyanosis, clubbing or edema. LABS: White count of 12.2, hemoglobin 11.9. Creatinine 0.7. ASSESSMENT: 1. Status post implantable cardioverter-defibrillator. 2. Left chest hematoma. 3. Coronary artery disease. 4. Atrial fibrillation, on Coumadin. 5. Dyslipidemia. 6. Osteoarthritis. 7. Chronic obstructive pulmonary disease. 8. Right third and fourth rib fractures. PLAN: The patient is on Coumadin, this will be continued. The patient is being followed by Cardiology. Patient is getting Coumadin given slowly because she does have hematoma that is resolving. She is on Lipitor for dyslipidemia. She is receiving Percocet for pain. She is on oxygen. She is getting a regular diet. I did speak to the patient's daughter at the bedside to give an update on her mother's plan of care. She is getting physical therapy and is able to ambulate better. Jw Ruggiero MD
[2017-09-01] MEDS: Albuterol-Ipratrop 3 mg / 0.5 (3 ml) UD IH SCH ×3 (07:15→19:31)
[2017-09-01] MEDS: Metoprolol Succinate 25 mg XL Tab PO SCH (07:48)
[2017-09-01] MEDS: Potassium Chloride 20 mEq ER Tab PO SCH ×2 (07:48→17:21)
--- NOTE | 2017-09-01 07:52 | CP.PCM.PN ---
Subjective - Date & Time of Evaluation Date of Evaluation: 09/01/17 Time of Evaluation: 07:00 - Subjective Subjective: Stable on TCU. S/P EP Eval and ICD at [facility]. S/P cath with mod. CAD and apical infarct > med. tx. + Chest Wall pain with rib fx. s/p brief CPR. + ICD pocket hematoma. Good ambulation/PT yesterday. She is feeling much better. Still rib pains. V/S noted. P = 90 PE: Lungs: clear Cor.: S1S2 Abd.: soft Ext.: no edema Neuro.: alert Pocket hematoma and ecchymoses noted. Labs pending CXR 08/29 noted Objective - Vital Signs/Intake and Output Vital Signs (last 24 hours): Temp Pulse Resp BP Pulse Ox 98 F 96 H 20 119/63 95 09/01/17 05:53 09/01/17 05:53 09/01/17 05:53 09/01/17 05:53 09/01/17 05:53 - Medications Medications: Current Medications Albuterol/Ipratropium (Duoneb 3 Mg/0.5 Mg (3 Ml) Ud) 3 ml IH TIDRESP [facility] Last Admin: 09/01/17 07:15 Dose: 3 ml Atorvastatin Calcium (Lipitor) 10 mg PO 1730 [facility] PRN Reason: Protocol Last Admin: 08/31/17 17:25 Dose: 10 mg Furosemide (Lasix) 20 mg PO DAILY [facility] Last Admin: 08/31/17 12:36 Dose: 20 mg Lisinopril (Zestril) 5 mg PO DAILY [facility] PRN Reason: Protocol Last Admin: 08/31/17 09:52 Dose: Not Given Metoprolol Succinate (Toprol Xl) 25 mg PO BRK [facility] PRN Reason: Protocol Last Admin: 08/31/17 07:25 Dose: Not Given Morphine Sulfate (Morphine) 2 mg IVP Q4 PRN; Protocol PRN Reason: PAIN SEVERE [8-10] Last Admin: 08/28/17 15:56 Dose: 2 mg Oxycodone/Acetaminophen (Percocet 5/325 Mg Tab) 1 tab PO Q6H PRN; Protocol PRN Reason: moderate pain Last Admin: 08/31/17 17:29 Dose: 1 tab Potassium Chloride (K-Dur 20 Meq Er Tab) 20 meq PO 0800,1800 [facility] Last Admin: 08/31/17 17:24 Dose: 20 meq Spironolactone (Aldactone) 25 mg PO DAILY [facility] PRN Reason: Protocol Last Admin: 08/31/17 09:53 Dose: Not Given Warfarin Sodium (Coumadin) 3 mg PO 1800 [facility] PRN Reason: Protocol Last Admin: 08/31/17 17:24 Dose: 3 mg - Labs Labs: 08/28/17 08:30 08/31/17 06:30 PT 15.2 SECONDS (9.4-12.5) H 08/31/17 06:30 INR 1.31 (0.93-1.08) H 08/31/17 06:30 Assessment and Plan - Assessment and Plan (Free Text) Assessment: A. Flutter with slow VR VT episode/S/P brief CPR with rib fx. ICD implant last week. Large ICD pocket hematoma, CAD/moderate CAD and apical infarct (? embolic) on cath last week Chronic AF was on chronic warfarin HBP Arthritis Surgeries: GB, Hysterectomy, Hernia Plan: Await AM labs, INR Lasix 20 daily PO KCL OOB as lon/PT/Rehab efforts Analgesics for rib fx. Will follow.
[2017-09-01 08:18] LABS: BLOOD UREA NITROGEN 17 mg/dL (7-21); CALCIUM 9.9 mg/dL (8.4-10.5); GFR AFRICAN-AMERICAN > 60; GFR NON-AFRICAN AMERICAN > 60
[2017-09-01 08:33] LABS: INR 1.26 (0.93-1.08); PROTHROMBIN TIME 14.5 SECONDS (9.4-12.5)
[2017-09-01] MEDS: Oxycodone/Acetaminophen 5/325 mg Tab PO PRN (11:29)
[2017-09-02 06:32] VITALS: RESP 18
[2017-09-02] MEDS: Albuterol-Ipratrop 3 mg / 0.5 (3 ml) UD IH SCH ×3 (07:22→22:53)
[2017-09-02 07:27] LABS: INR 1.49 (0.93-1.08); PROTHROMBIN TIME 17.3 SECONDS (9.4-12.5)
--- NOTE | 2017-09-02 07:45 | CP.PCM.PN ---
Subjective - Date & Time of Evaluation Date of Evaluation: 09/02/17 Time of Evaluation: 07:00 - Subjective Subjective: Stable on TCU. S/P EP Eval and ICD at [facility]. S/P cath with mod. CAD and apical infarct > med. tx. + Chest Wall pain with rib fx. s/p brief CPR. + ICD pocket hematoma. Good ambulation/PT yesterday. She is feeling much better. Still rib pains.I spoke with her daughter at the bedside. D/C planned for tomorrow. V/S noted. P = 90 PE: Lungs: clear Cor.: S1S2 Abd.: soft Ext.: no edema Neuro.: alert Pocket hematoma and ecchymoses noted. Labs: INR = 1.49, BMP OK., MG.++= 1.2 CXR 08/29 noted Objective - Vital Signs/Intake and Output Vital Signs (last 24 hours): Temp Pulse Resp BP Pulse Ox 98.1 F 91 H 18 118/74 93 L 09/02/17 06:00 09/02/17 06:00 09/02/17 06:00 09/02/17 06:00 09/02/17 06:00 - Medications Medications: Current Medications Albuterol/Ipratropium (Duoneb 3 Mg/0.5 Mg (3 Ml) Ud) 3 ml IH TIDRESP [facility] Last Admin: 09/02/17 07:22 Dose: Not Given Atorvastatin Calcium (Lipitor) 10 mg PO 1730 [facility] PRN Reason: Protocol Last Admin: 09/01/17 17:21 Dose: 10 mg Furosemide (Lasix) 20 mg PO DAILY [facility] Last Admin: 09/01/17 11:31 Dose: 20 mg Lisinopril (Zestril) 5 mg PO DAILY [facility] PRN Reason: Protocol Last Admin: 09/01/17 09:52 Dose: Not Given Metoprolol Succinate (Toprol Xl) 25 mg PO BRK [facility] PRN Reason: Protocol Last Admin: 09/01/17 07:48 Dose: 25 mg Morphine Sulfate (Morphine) 2 mg IVP Q4 PRN; Protocol PRN Reason: PAIN SEVERE [8-10] Last Admin: 08/28/17 15:56 Dose: 2 mg Oxycodone/Acetaminophen (Percocet 5/325 Mg Tab) 1 tab PO Q6H PRN; Protocol PRN Reason: moderate pain Last Admin: 09/01/17 11:29 Dose: 1 tab Potassium Chloride (K-Dur 20 Meq Er Tab) 20 meq PO 0800,1800 [facility] Last Admin: 09/01/17 17:21 Dose: 20 meq Spironolactone (Aldactone) 25 mg PO DAILY [facility] PRN Reason: Protocol Last Admin: 09/01/17 10:01 Dose: Not Given Warfarin Sodium (Coumadin) 3 mg PO 1800 [facility] PRN Reason: Protocol Last Admin: 08/31/17 17:24 Dose: 3 mg - Labs Labs: 08/28/17 08:30 09/01/17 07:00 PT 17.3 SECONDS (9.4-12.5) H 09/02/17 06:00 INR 1.49 (0.93-1.08) H 09/02/17 06:00 Assessment and Plan - Assessment and Plan (Free Text) Assessment: A. Flutter with slow VR VT episode/S/P brief CPR with rib fx. ICD implant last week. Large ICD pocket hematoma, CAD/moderate CAD and apical infarct (? embolic) on cath last week Chronic AF was on chronic warfarin HBP Arthritis Surgeries: GB, Hysterectomy, Hernia Plan: Add PO mag. Lasix 20 daily PO KCL OOB as lon/PT/Rehab efforts Analgesics for rib fx. D/C planning
[2017-09-02] MEDS: Metoprolol Succinate 25 mg XL Tab PO SCH (07:55)
[2017-09-02] MEDS: Potassium Chloride 20 mEq ER Tab PO SCH ×2 (07:56→17:33)
[2017-09-02] MEDS: Magnesium Oxide 400 mg Tab UD PO SCH ×3 (09:47→17:33)
[2017-09-02] MEDS: Oxycodone/Acetaminophen 5/325 mg Tab PO PRN ×2 (15:09→22:22)
[2017-09-02 16:15] VITALS: PULSE 70
[2017-09-03 06:33] VITALS: TEMP 97.1; O2SAT 97
[2017-09-03 06:46] LABS: INR 1.65 (0.93-1.08); PROTHROMBIN TIME 19.2 SECONDS (9.4-12.5)
[2017-09-03 07:08] LABS: BLOOD UREA NITROGEN 24 mg/dL (7-21); CALCIUM 9.5 mg/dL (8.4-10.5); GFR AFRICAN-AMERICAN > 60; GFR NON-AFRICAN AMERICAN > 60
[2017-09-03] MEDS: Potassium Chloride 20 mEq ER Tab PO SCH (07:53)
[2017-09-03] MEDS: Metoprolol Succinate 25 mg XL Tab PO SCH (07:53)
--- NOTE | 2017-09-03 08:18 | CP.PCM.PN ---
Subjective - Date & Time of Evaluation Date of Evaluation: 09/03/17 Time of Evaluation: 07:00 - Subjective Subjective: Stable on TCU. S/P EP Eval and ICD at [facility]. S/P cath with mod. CAD and apical infarct > med. tx. + Chest Wall pain with rib fx. s/p brief CPR. + ICD pocket hematoma. Good ambulation/PT yesterday. She is feeling much better. Still rib pains.I spoke with her daughter at the bedside. D/C planned for later today. V/S noted. P = 70 PE: Lungs: clear Cor.: S1S2 Abd.: soft Ext.: no edema Neuro.: alert Pocket hematoma and ecchymoses noted. Labs: INR = 1.65, BMP OK., MG.++= 1.5 CXR 08/29 noted Objective - Vital Signs/Intake and Output Vital Signs (last 24 hours): Temp Pulse Resp BP Pulse Ox 97.1 F L 70 18 107/69 97 09/03/17 06:00 09/03/17 06:00 09/03/17 06:00 09/03/17 07:53 09/03/17 06:00 - Medications Medications: Current Medications Albuterol/Ipratropium (Duoneb 3 Mg/0.5 Mg (3 Ml) Ud) 3 ml IH TIDRESP [facility] Last Admin: 09/02/17 22:53 Dose: Not Given Atorvastatin Calcium (Lipitor) 10 mg PO 1730 [facility] PRN Reason: Protocol Last Admin: 09/02/17 17:32 Dose: 10 mg Furosemide (Lasix) 20 mg PO DAILY [facility] Last Admin: 09/02/17 09:47 Dose: 20 mg Lisinopril (Zestril) 5 mg PO DAILY [facility] PRN Reason: Protocol Last Admin: 09/02/17 09:48 Dose: 5 mg Magnesium Oxide (Mag-Ox) 400 mg PO TID [facility] Last Admin: 09/02/17 17:33 Dose: 400 mg Metoprolol Succinate (Toprol Xl) 25 mg PO BRK [facility] PRN Reason: Protocol Last Admin: 09/03/17 07:53 Dose: 25 mg Morphine Sulfate (Morphine) 2 mg IVP Q4 PRN; Protocol PRN Reason: PAIN SEVERE [8-10] Last Admin: 08/28/17 15:56 Dose: 2 mg Oxycodone/Acetaminophen (Percocet 5/325 Mg Tab) 1 tab PO Q6H PRN; Protocol PRN Reason: moderate pain Last Admin: 09/02/17 22:22 Dose: 1 tab Potassium Chloride (K-Dur 20 Meq Er Tab) 20 meq PO 0800,1800 [facility] Last Admin: 09/03/17 07:53 Dose: 20 meq Warfarin Sodium (Coumadin) 5 mg PO ONCE ONE PRN Reason: Protocol Stop: 09/03/17 09:01 - Labs Labs: 08/28/17 08:30 09/03/17 05:00 PT 19.2 SECONDS (9.4-12.5) H 09/03/17 05:00 INR 1.65 (0.93-1.08) H 09/03/17 05:00 Assessment and Plan - Assessment and Plan (Free Text) Assessment: A. Flutter with slow VR VT episode/S/P brief CPR with rib fx. ICD implant last week. Large ICD pocket hematoma, CAD/moderate CAD and apical infarct (? embolic) on cath last week Chronic AF was on chronic warfarin HBP Arthritis Surgeries: GB, Hysterectomy, Hernia Plan: Warfarin 5 today. Out pt INR planned for . PO mag. Lasix 20 daily PO KCL OOB as lon/PT/Rehab efforts Analgesics for rib fx. D/C planning: Out-pt cardiology and ICD follow-up being arranged.
[2017-09-03] MEDS: Magnesium Oxide 400 mg Tab UD PO SCH (09:06)
[2017-09-03 09:07] VITALS: BP 106/69
[2017-09-03] MEDS ORDERED: Morphine 2 mg/2 mL syringe IVP PRN (11:30)
[2017-09-03] MEDS: Oxycodone/Acetaminophen 5/325 mg Tab PO PRN (11:54)
--- NOTE | 2017-09-04 05:40 | DS ---
HISTORY OF PRESENT ILLNESS: Patient has no complaints of any chest pain, no shortness of breath, no headaches or dizziness. She initially was having bradycardia. She had gone to [facility] and had a defibrillator placed. The patient is going to be discharged home today. She is being followed by Dr. Rodriguez. She will follow with him as an outpatient. She had developed a hematoma on the left chest that has improved. She also had fractures in the right rib after she received chest compressions when she had symptomatic bradycardia. Patient is currently comfortable. PHYSICAL EXAMINATION: VITAL SIGNS: Temperature is 97.1, pulse is 70, blood pressure is 107/69, respirations 18, and O2 saturation 97%. GENERAL: The patient is lying in bed, flat, comfortable. HEENT: No oral lesion. Anicteric sclerae. Moist mucosa. NECK: No JVD, adenopathy, or thyromegaly. CHEST: There is some ecchymosis in the left chest and the left breast. CARDIOVASCULAR: S1 and S2, regular. No murmurs, rubs, or gallops. LUNGS: Clear to auscultation bilaterally. No wheeze, rales, or rhonchi. ABDOMEN: Bowel sounds are positive, soft, nontender, and nondistended. EXTREMITIES: No cyanosis, clubbing, or edema. ASSESSMENT: 1. Status post implantable cardioverter defibrillator placement. 2. Left chest hematoma, resolving. 3. Coronary artery disease. 4. Atrial fibrillation, on Coumadin. 5. Dyslipidemia. 6. Osteoarthritis. 7. Chronic obstructive pulmonary disease. 8. Right third and fourth rib fractures. PLAN: The patient is going to be on Coumadin. Patient has been started on 5 mg of Coumadin. Patient is on potassium. She is going to continue with Lasix daily. She is on Lipitor for dyslipidemia. The patient is on Percocet for pain. She is on Zestril as well as metoprolol. This will be continued. She is on regular diet. I did speak to the patient's daughter at the bedside to give her an update on the patient's diagnoses and plan of care. She is going to follow up as an outpatient for her PT and follow up for her ICD. Condition is stable. Activities: Increase as tolerated. Discharged home. Jw Ruggiero MD [facility] # [id number]
== END 2017-09-03 13:28 | disposition home health service (06) | DRG 309 ==
LOC: TRCU 19:07
PROVIDERS: ADMIT Internal Medicine Nephrology; ATTEND Internal Medicine Nephrology
PROC: F07Z9FZ Gait Training/Functional Ambulation Treatment using Assistive, Adaptive, Supportive or Protective Equipment (ICD-10-PCS; principal; 2017-08-29)
PROC: F07Z8FZ Transfer Training Treatment using Assistive, Adaptive, Supportive or Protective Equipment (ICD-10-PCS; 2017-08-29)
PROC: F07L6YZ Therapeutic Exercise Treatment of Musculoskeletal System - Lower Back / Lower Extremity using Other Equipment (ICD-10-PCS; 2017-08-29)
PROC: F08Z4FZ Home Management Treatment using Assistive, Adaptive, Supportive or Protective Equipment (ICD-10-PCS; 2017-08-29)
DX: I48.92 Unspecified atrial flutter (principal); L76.32 Postprocedural hematoma of skin and subcutaneous tissue following other procedure; I50.20 Unspecified systolic (congestive) heart failure; I11.0 Hypertensive heart disease with heart failure; I45.9 Conduction disorder, unspecified; I48.2 Chronic atrial fibrillation; I25.10 Atherosclerotic heart disease of native coronary artery without angina pectoris; M19.90 Unspecified osteoarthritis, unspecified site; R00.1 Bradycardia, unspecified; E78.5 Hyperlipidemia, unspecified; J44.9 Chronic obstructive pulmonary disease, unspecified; Y83.8 Other surgical procedures as the cause of abnormal reaction of the patient, or of later complication, without mention of misadventure at the time of the procedure; X58.XXXD Exposure to other specified factors, subsequent encounter; Z95.810 Presence of automatic (implantable) cardiac defibrillator; S22.41XD Multiple fractures of ribs, right side, subsequent encounter for fracture with routine healing; Z79.01 Long term (current) use of anticoagulants; Z86.79 Personal history of other diseases of the circulatory system

== ENCOUNTER 2017-09-12 18:26 | Inpatient (IN) | payer MEDICARE ==
[2017-09-12 18:27] VITALS: PULSE 54
[2017-09-12 18:39] VITALS: BMI 32.9
[2017-09-12 19:17] LABS: BASO # 0.02 K/mm3 (0.0-2.0); BASO % 0.3 % (0.0-3.0); GRAN # 4.43 (1.4-6.5); GRAN % 69.9 % (50.0-68.0); HEMOGLOBIN 13.1 g/dL (12.0-16.0); LYMPH # 1.3 (1.2-3.4); LYMPH % 20.8 % (22.0-35.0); MEAN CELL VOLUME 90.3 fl (80.0-105.0); MEAN CORPUSCULAR HEMOGLOBIN 29.5 pg (25.0-35.0); MEAN CORPUSCULAR HGB CONC 32.7 g/dl (31.0-37.0); MEAN PLATELET VOLUME 11.3 fl (7.0-11.0); MONO # 0.6 (0.1-0.6); RBC 4.44 10^6/uL (3.5-6.1); RED CELL DISTRIBUTION WIDTH 15.3 % (11.5-14.5); WHITE BLOOD COUNT 6.3 10^3/ul (4.5-11.0)
[2017-09-12 19:26] LABS: INR 2.43 (0.93-1.08); PARTIAL THROMBOPLASTIN TIME 54.4 Seconds (25.1-36.5); PROTHROMBIN TIME 28.2 SECONDS (9.4-12.5)
[2017-09-12] MEDS ORDERED: Albuterol 0.5% Inhal Sol (5 mg/ ml) 20 ml IH STA (19:29)
[2017-09-12] MEDS ORDERED: Albuterol 0.083% Inhal Sol (2.5 mg/3 mL) UD ONE (19:30)
[2017-09-12 19:33] LABS: VENOUS BLOOD GAS BASE EXCESS 5.9 mmol/L (0.0-2.0); VENOUS BLOOD GAS PO2 29 mm/Hg (30-55); VENOUS BLOOD PH 7.29 (7.32-7.43)
[2017-09-12 19:36] LABS: ALBUMIN 4.1 g/dL (3.0-4.8); ALT/SGPT 36 U/L (7-56); AST/SGOT 51 U/L (14-36); BLOOD UREA NITROGEN 39 mg/dL (7-21); GFR AFRICAN-AMERICAN > 60; GFR NON-AFRICAN AMERICAN 53
[2017-09-12 19:38] LABS: B-TYPE NATRIURETIC PEPTIDE 9730 pg/mL (0-450); TROPONIN I 0.05 ng/mL
[2017-09-12] MEDS ORDERED: Albuterol-Ipratrop 3 mg / 0.5 (3 ml) UD IH STA (19:40)
[2017-09-12 19:43] LABS: ARTERIAL BLOOD GAS HCO3 29.7 mmol/L (21-28); ARTERIAL BLOOD GAS O2 SAT 99.7 % (95-98); ARTERIAL BLOOD GAS PCO2 55 mm/Hg (35-45); ARTERIAL BLOOD GAS PH 7.34 (7.35-7.45); ARTERIAL BLOOD GAS TCO2 31.4 mmol.L (22-28)
[2017-09-12] MEDS: Albuterol-Ipratrop 3 mg / 0.5 (3 ml) UD IH SCH ×4 (20:00→21:15)
--- NOTE | 2017-09-12 20:04 | CP.PCM.CON ---
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 As per patient's daughters, patient was recently discharged from [facility] and recently seen by PMD Dr. De La Garza on Sunday09/10/17 for routine lab work which was unremarkable. However the day prior to admission patient's daughters noticed she was developing a cough and the day of admission patient was struggling to breathe which is when they decided to bring her in. She did not have any fever or chills and cough was non productive. Patient's family also noticed that she was having increased leg swelling bilaterally for the past 3-4 days which her home care nurse associated to sitting and not having her legs elevated. Patient has been sleeping upright on a chair as she has been unable to lie flat due to pain from rib fractures s/p CPR during her last admission. She ambulates with a walker at home and denied any dyspnea on exertion but is able to only walk 1/2 a block with her walker due to tiredness. As per family patient has had no complaints of headaches, dizziness, chest pain, palpitations, abd pain, nausea, vomiting, bowel/bladder complaints, pain in her legs b/l. She has complained of tiredness and has had a decreased appetite and weight loss. Patient has not travelled anywhere recently and has had no sick contacts. Of note, patient has swelling and ecchymosis at site of ICD placement which as per family has been improving. 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 Lives at home with daughter. FamHx: No family hx of CVA or KS. Sister from multiple myeloma at 75yo PMD: Dr. De La Garza Cardiology: Dr. Rodriguez Review of Systems - Constitutional Constitutional: As Per HPI. absent: Chills, Fever - EENT Eyes: As Per HPI. absent: Blurred Vision Ears: As Per HPI. absent: Dizziness Nose/Mouth/Throat: As Per HPI. absent: Sore Throat - Cardiovascular Cardiovascular: As Per HPI, Dyspnea, Edema, Irregular Heart Rhythm, Leg Edema. absent: Chest Pain, Dyspnea on Exertion - Respiratory Respiratory: As Per HPI, Cough, Dyspnea, Dyspnea on Exertion, Chest Congestion - Gastrointestinal Gastrointestinal: As Per HPI. absent: Abdominal Pain, Constipation, Diarrhea, Hematochezia, Melena, Nausea, Vomiting - Genitourinary Genitourinary: As Per HPI. absent: Dysuria, Hematuria, Pyuria - Musculoskeletal Musculoskeletal: As Per HPI, Other (rib pain) - Integumentary Integumentary: As Per HPI, Other (ecchymosis and swelling around ICD ) - Neurological Neurological: As Per HPI. absent: Dizziness, Numbness, Headaches, Tingling - Psychiatric Psychiatric: As Per HPI. absent: Anxiety, Depression - Endocrine Endocrine: As Per HPI. absent: Polydipsia, Polyphagia, Polyuria - Hematologic/Lymphatic Hematologic: As Per HPI. absent: Lymphadenopathy Past Patient History - Infectious Disease Hx of Infectious Diseases: None - Tetanus Immunizations Tetanus Immunization: Unknown - Past Medical History & Family History Past Medical History?: Yes - Past Social History Smoking Status: Never Smoked - CARDIAC Hx Cardiac Disorders: Yes Hx Congestive Heart Failure: Yes - PULMONARY Hx Chronic Obstructive Pulmonary Disease (COPD): Yes - NEUROLOGICAL Hx Neurological Disorder: No - HEENT Hx HEENT Problems: Yes Other/Comment: glasses - RENAL Hx Chronic Kidney Disease: No - ENDOCRINE/METABOLIC Hx Endocrine Disorders: No - HEMATOLOGICAL/ONCOLOGICAL Hx Blood Disorders: No - INTEGUMENTARY Hx Dermatological Problems: No - MUSCULOSKELETAL/RHEUMATOLOGICAL Hx Arthritis: Yes (OA) - GASTROINTESTINAL Hx Gastrointestinal Disorders: No - GENITOURINARY/GYNECOLOGICAL Hx Genitourinary Disorders: No Hx Reproductive Disorders: No - PSYCHIATRIC Hx Psychophysiologic Disorder: No Hx Substance Use: No - SURGICAL HISTORY Hx Surgeries: Yes (C/S) Hx Cholecystectomy: Yes Other/Comment: HEMORRHOIDECTOMY,HYSTERECTOMY - ANESTHESIA Hx Anesthesia: Yes Hx Anesthesia Reactions: No Hx Malignant Hyperthermia: No Meds Allergies/Adverse Reactions: Allergies Allergy/AdvReac Type Severity Reaction Status Date / Time No Known Allergies Allergy Verified 08/27/17 20:33 - Medications Medications: Current Medications Albuterol/Ipratropium (Duoneb 3 Mg/0.5 Mg (3 Ml) Ud) 3 ml IH Q15M JARON Stop: 09/12/17 20:31 Physical Exam - Constitutional Appears: In Acute Distress (on BiPAP) - Head Exam Head Exam: ATRAUMATIC, NORMAL INSPECTION, NORMOCEPHALIC - Eye Exam Eye Exam: EOMI, Normal appearance, PERRL. absent: Conjunctival injection, Scleral icterus - ENT Exam ENT Exam: Mucous Membranes Dry - Neck Exam Neck exam: Positive for: Full Rom. Negative for: Lymphadenopathy - Respiratory Exam Respiratory Exam: Rales, Wheezes, Respiratory Distress, NORMAL BREATHING PATTERN (on BiPAP) - Cardiovascular Exam Cardiovascular Exam: Irregular Rhythm, +S1, +S2. absent: Bradycardia, Tachycardia, Systolic Murmur - GI/Abdominal Exam GI & Abdominal Exam: Normal Bowel Sounds, Soft. absent: Firm, Guarding, Rigid, Tenderness - Rectal Exam Rectal Exam: Deferred - Extremities Exam Extremities exam: Positive for: pedal edema (+3 b/l) - Neurological Exam Neurological exam: Alert, CN II-XII Intact, Oriented x3 - Psychiatric Exam Psychiatric exam: Normal Affect, Normal Mood - Skin Skin Exam: Dry, Intact, Warm Additional comments: ecchymosis and swelling around ICD placed on L upper chest wall tender to palpation Results - Vital Signs Recent Vital Signs: Last Vital Signs Temp 98.4 F 09/12/17 19:11 Pulse 65 09/12/17 18:38 Resp 36 H 09/12/17 18:46 BP 142/81 09/12/17 19:38 Pulse Ox 96 09/12/17 18:46 - Labs Result Diagrams: 09/12/17 18:45 09/12/17 18:45 Labs: Laboratory Results - last 24 hr 09/12/17 09/12/17 09/12/17 18:45 18:45 18:45 WBC 6.3 D RBC 4.44 Hgb 13.1 Hct 40.1 MCV 90.3 MCH 29.5 MCHC 32.7 RDW 15.3 H Plt Count 226 MPV 11.3 H Gran % 69.9 H Lymph % (Auto) 20.8 L Pine % (Auto) 9.0 H Eos % (Auto) 0.0 L Baso % (Auto) 0.3 Gran # 4.43 Lymph # (Auto) 1.3 Pine # (Auto) 0.6 Eos # (Auto) 0.0 Baso # (Auto) 0.02 PT 28.2 H INR 2.43 H APTT 54.4 H pCO2 pO2 HCO3 ABG pH ABG Total CO2 ABG O2 Saturation ABG Base Excess ABG Potassium VBG pH VBG pCO2 VBG HCO3 VBG Total CO2 VBG O2 Sat (Calc) VBG Base Excess VBG Potassium Glucose Lactate FiO2 Sodium 134 Potassium 4.7 Chloride 91 L Carbon Dioxide 32 Anion Gap 15 BUN 39 H Creatinine 1.0 Est GFR ( Amer) > 60 Est GFR (Non-Af Amer) 53 Random Glucose 116 H Calcium 10.0 Total Bilirubin 1.4 H AST 51 H D ALT 36 Alkaline Phosphatase 134 H D Lactate Dehydrogenase 805 H Total Creatine Kinase 41 Troponin I 0.05 D NT-Pro-B Natriuret Pep 9730 H Total Protein 8.1 Albumin 4.1 Globulin 4.0 Albumin/Globulin Ratio 1.0 L Arterial Blood Potassium Venous Blood Potassium Influenza Typ A,B (EIA) 09/12/17 09/12/17 09/12/17 19:00 19:27 19:35 WBC RBC Hgb Hct MCV MCH MCHC RDW Plt Count MPV Gran % Lymph % (Auto) Pine % (Auto) Eos % (Auto) Baso % (Auto) Gran # Lymph # (Auto) Pine # (Auto) Eos # (Auto) Baso # (Auto) PT INR APTT pCO2 55 H pO2 29 L 133.0 H HCO3 29.7 H ABG pH 7.34 L ABG Total CO2 31.4 H ABG O2 Saturation 99.7 H ABG Base Excess 2.6 ABG Potassium 4.4 VBG pH 7.29 L VBG pCO2 73.0 H* VBG HCO3 35.1 H VBG Total CO2 37.3 H VBG O2 Sat (Calc) 50.9 VBG Base Excess 5.9 H VBG Potassium 4.9 Glucose 112 H 113 H Lactate 1.1 0.8 FiO2 21.0 28.0 Sodium 132.0 133.0 Potassium Chloride 95.0 L 100.0 Carbon Dioxide Anion Gap BUN Creatinine Est GFR ( Amer) Est GFR (Non-Af Amer) Random Glucose Calcium Total Bilirubin AST ALT Alkaline Phosphatase Lactate Dehydrogenase Total Creatine Kinase Troponin I NT-Pro-B Natriuret Pep Total Protein Albumin Globulin Albumin/Globulin Ratio Arterial Blood Potassium 4.4 Venous Blood Potassium 4.9 Influenza Typ A,B (EIA) Negative for flu a/b Assessment & Plan - Assessment and Plan (Free Text) Assessment: 82 year old female PMHx Afib on coumadin, 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 Patient admitted to MICU for further monitoring. Plan: Neuro -no acute issues -patient is AO x 3 Cardio -likely CHF exacerbation -BNP on admission 9730 -f/u BNP in AM -Lasix 40mg ivp q12 -hx of Afib on coumadin 2mg -INR on admission is therapeutic 2.43 -hx of hyperlipidemia on lipitor 10mg po qd -hx of HTN on lisinopril 5mg po qd and toprol xl 25mg po qd -maintain SBP > 65mmHg -strict Is and Os -measure weight daily -Dr. Rodriguez consulted Pulm -maintain SpO2 > 90 -patient currently on BiPAP -f/u AM ABG -f/u CT chest -Duoneb 3ml inh q2 prn sob -Duoneb 3ml inh q6 jaron GI -NPO when patient is on BiPAP Renal -maintain strict Is and Os -monitor renal function -supplement and replete electrolytes as needed Endo -maintain euglycemia ID -flu negative -f/u procal -empiric abx: Zithromax and Rocephin Heme/Onc -H&H stable -Monitor Discussed with Dr. Ginger Mota PGY2 <Nelida Miles - Last Filed: 09/12/17 23:14> Meds - Medications Medications: Current Medications Albuterol/Ipratropium (Duoneb 3 Mg/0.5 Mg (3 Ml) Ud) 3 ml IH Q6H JARON Stop: 09/13/17 10:00 Last Admin: 09/12/17 21:15 Dose: 3 ml Albuterol/Ipratropium (Duoneb 3 Mg/0.5 Mg (3 Ml) Ud) 3 ml IH Q2H PRN PRN Reason: Shortness of Breath Atorvastatin Calcium (Lipitor) 10 mg PO DAILY JARON Furosemide (Lasix) 40 mg IVP Q12 JARON Ceftriaxone Sodium (Rocephin 1 Gram Ivpb) 1 gm in 100 mls @ 100 mls/hr IVPB DAILY JARON PRN Reason: Protocol Azithromycin 250 mg/ Sodium (Chloride) 250 mls @ 167 mls/hr IVPB DAILY JARON PRN Reason: Protocol Lisinopril (Zestril) 5 mg PO DAILY JARON Metoprolol Succinate (Toprol Xl) 25 mg PO BRK JARON Pantoprazole Sodium (Protonix Inj) 40 mg IVP DAILY JARON Warfarin Sodium (Coumadin) 2 mg PO 1800 JARON PRN Reason: Protocol Results - Vital Signs Recent Vital Signs: Last Vital Signs Temp 98.4 F 09/12/17 19:11 Pulse 73 09/12/17 21:25 Resp 27 H 09/12/17 21:25 BP 142/81 09/12/17 20:03 Pulse Ox 99 09/12/17 21:25 - Labs Result Diagrams: 09/12/17 18:45 09/12/17 18:45 Attending/Attestation - Attestation I have personally seen and examined this patient.: Yes I have fully participated in the care of the patient.: Yes I have reviewed all pertinent clinical information: Yes Notes (Text): 09/12/17 23:13 Patient was seen when she was in bed 13 in the ER and again in bed 1 in the ICU. Agree with history , physical examination, assessment and plan.
[2017-09-12] MEDS ORDERED: Succinylcholine 200 mg/10 ml Inj IV ONE (20:14)
[2017-09-12] MEDS ORDERED: Etomidate 20 mg/10ml Inj IV ONE (20:14)
[2017-09-12] MEDS ORDERED: Propofol 10 mg/ml Inj (20 ML) ONE (20:16)
[2017-09-12] MEDS ORDERED: Propofol 10 mg/ml 1,000 MG/100 ML VIAL ONE (20:16)
[2017-09-12] MEDS ORDERED: Azithromycin 500MG/NS 250ml 500 MG/250 ML BAG IVPB STA (20:38)
[2017-09-12] MEDS ORDERED: cefTRIAXone 1 gm 1 GM/100 ML BAG IVPB ONE (20:41)
--- NOTE | 2017-09-12 22:54 | ED PDOC ---
Arrival/HPI - General Chief Complaint: Shortness Of Breath Time Seen by Provider: 09/12/17 18:27 Historian: Patient, Family, EMS - History of Present Illness Narrative History of Present Illness (Text): Patient is an 82 yo female with past medical history of recent pacemaker placement, history of arrhythmia, history of right rib fracture, history of reported cardiac arrest during past admission, presents to the Emergency department accompanied by her daughters and family with history of shortness of breath. Patient reportedly was recently discharged from TCU after having pacemaker placed. Patient and daughters state that she has been doing well, but have noted swelling to her legs that have developed over the past several days " since she left TCU." Patient reportedly developed a cough last night, was reportedly comfortable this morning, but then prior to arrival the patient was noted to develop shortness of breath. Patient denies hemoptysis. She denies pleuritic pain or chest pain aside from "rib pain" which is attributed to prior right rib fracture, not changed in character. She reports "fullness" in her abdomen, but denies abdominal pain, denies nausea or vomiting. Past Medical History - Infectious Disease Hx of Infectious Diseases: None - Tetanus Immunization Tetanus Immunization: Unknown - Cardiac Hx Cardiac Disorders: Yes Hx Congestive Heart Failure: Yes - Pulmonary Hx Chronic Obstructive Pulmonary Disease (COPD): Yes - Neurological Hx Neurological Disorder: No - HEENT Hx HEENT Disorder: Yes Other/Comment: glasses - Renal Hx Renal Disorder: No - Endocrine/Metabolic Hx Endocrine Disorders: No - Hematological/Oncological Hx Blood Disorders: No - Integumentary Hx Dermatological Disorder: No - Musculoskeletal/Rheumatological Hx Arthritis: Yes (OA) - Gastrointestinal Hx Gastrointestinal Disorders: No - Genitourinary/Gynecological Hx Genitourinary Disorders: No Hx Reproductive Disorders: No - Psychiatric Hx Psychophysiologic Disorder: No Hx Substance Use: No - Surgical History Hx Cholecystectomy: Yes Other/Comment: HEMORRHOIDECTOMY,HYSTERECTOMY - Anesthesia Hx Anesthesia: Yes Hx Anesthesia Reactions: No Hx Malignant Hyperthermia: No - Suicidal Assessment Feels Threatened In Home Enviroment: No Family/Social History Family/Social History: Unknown Family HX Smoking Status: Never Smoked Hx Alcohol Use: No Hx Substance Use: No Hx Substance Use Treatment: No Allergies/Home Meds Allergies/Adverse Reactions: Allergies No Known Allergies Allergy (Verified 08/27/17 20:33) Home Medications: Home Meds Medication Instructions Recorded Confirmed Atorvastatin Calcium [Lipitor] 10 mg PO DAILY 05/11/12 09/12/17 Warfarin [Coumadin] 2 mg PO 1800 05/11/12 09/12/17 Magnesium Oxide [Mag-Ox] 400 mg PO DAILY 08/17/17 09/12/17 Potassium Chloride [Klor-Con M20] 20 meq PO DAILY 08/17/17 09/12/17 Review of Systems - Review of Systems Constitutional: Fatigue. absent: Fevers Eyes: absent: Vision Changes ENT: absent: Hearing Changes, Sore Throat, Rhinorrhea Respiratory: SOB, Cough. absent: Sputum, Wheezing Cardiovascular: Edema, VALLEJO, Orthopnea, Other (right rib pain). absent: Palpitations, Calf Pain, Syncope Gastrointestinal: Other (abdominal "fullness"). absent: Diarrhea, Nausea, Vomiting, Hematochezia, Hematemesis Genitourinary Female: absent: Dysuria, Frequency Musculoskeletal: absent: Back Pain, Neck Pain Skin: absent: Rash Neurological: absent: Headache, Dizziness, Focal Weakness Endocrine: absent: Polyuria Hemo/Lymphatic: absent: Easy Bleeding Psychiatric: absent: Anxiety Physical Exam Vital Signs Reviewed: Yes Vital Signs Temp Pulse Resp BP Pulse Ox 09/12/17 20:03 95 H 37 H 142/81 95 09/12/17 19:38 142/81 09/12/17 19:11 98.4 F 09/12/17 18:46 36 H 96 09/12/17 18:38 98.1 F 65 18 134/76 98 Temperature: Afebrile Respiratory Rate: Tachypneic Appearance: Positive for: Ill-Appearing Pain Distress: Moderate Mental Status: Positive for: Alert and Oriented X 3 Finger Stick Blood Glucose: 109 - Systems Exam Head: Present: Atraumatic Pupils: Present: PERRL Extroacular Muscles: Present: EOMI Mouth: Present: Moist Mucous Membranes Pharnyx: No: ERYTHEMA Neck: Present: JVD. No: Meningeal Signs, MIDLINE TENDERNESS Respiratory/Chest: Present: Rales (rales noted in bilateral bases, right greater than lef), Tachypneic. No: Retracting Cardiovascular: Present: Regular Rate and Rhythm, Murmurs Abdomen: Present: Distention. No: Tenderness, Peritoneal Signs, Rebound, Guarding Rectal: No: Gross Blood Back: No: CVA Tenderness Upper Extremity: No: Cyanosis Lower Extremity: Present: Edema, NORMAL PULSES, Normal ROM, Swelling, Neurovascularly Intact. No: CALF TENDERNESS, Tenderness Neurological: Present: Motor Func Grossly Intact, Normal Sensory Function Skin: Present: Diaphoretic Psychiatric: Present: Alert, Normal Insight, Normal Concentration Medical Decision Making ED Course and Treatment: 09/12/17 22:58 Patient seen immediately upon arrival to the ER. I examined patient with both daughters presents, history supplemented by daughters. I reviewed past visit and admission. I also supplemented history by discussing initial presentation with her radiology practitioner assistant, Dr. Rodriguez. Patient on initial exam is saturating 95% on 2liters nasal cannula. She is alert , respiratory rate 18-20. Rales noted in both lung forman with JVD and leg edema noted. CXR performed and results reviewed with family. I suspect a component of pulmonary edema/congestive heart failure given cxr findings and leg edema with jvd. IV lasix ordered. With serial exams, patient noted to be progressively labored. ABG was reviewed, although patient 15-20 minutes after ABG was noticeably more tachypneic, and oxygen saturations dropped to 88% on 2 liters nasal cannula. On re-exam, patient with wheezes noted as well. Duonebs ordered. As patient with increased tachypnea, respiratory rate 30, hypoxia, and some fatigue, I reviewed with patient and daughters her CODE status. She is agreeable to intubation IF NECESSARY. After nebulizers, she has improved oxygenation 95% on nasal cannula, and respiratory rate improved to 24. She states she was feeling slightly better after nebuilzers. Treatment options reviewed with patient and family, they are agreeable to Bipap. Bipap initiated in ED, and patient tolerated bipap very well. On re-exam she is noticeably improved in alertness, communicates she feels much better, and also oxygenation is 97%. I had consulted car greaser Dr. Miles who is present in ED and has evaluated patient. I reviewed preliminary and discussed limitations of plain films, and need for further imaging to assess for infiltrate vs effusion vs. chf. No large pneumothorax noted, although patient is on Coumadin and has prior history of right rib fracture. While in ED, patient too unstable to CT chest. This has been endorsed to ICU team with hard handoff of follow-up of ABG, respiratory status and imaging studies to Dr. Miles. Dr. Ruggiero, covering for PMD, accepts patient to his service. Will admit to ICU for serial exams, monitoring of cardiovascular and respiratory status. 09/17/17 14:02 - Critical Care Critical Care Minutes: 45 minutes - Lab Interpretations Microbiology Results: Microbiology Results 09/12/17 19:15 Blood Blood Culture - Preliminary NO GROWTH AFTER 4 DAYS 09/12/17 18:45 Blood Blood Culture - Preliminary NO GROWTH AFTER 4 DAYS Lab Results: 09/12/17 18:45 09/12/17 18:45 Lab Results 09/12/17 19:35: pCO2 55 H, pO2 133.0 H, HCO3 29.7 H, ABG pH 7.34 L, ABG Total CO2 31.4 H, ABG O2 Saturation 99.7 H, ABG Base Excess 2.6, ABG Potassium 4.4, Glucose 113 H, Lactate 0.8, FiO2 28.0, Sodium 133.0, Chloride 100.0, Arterial Blood Potassium 4.4 09/12/17 19:27: pO2 29 L, VBG pH 7.29 L, VBG pCO2 73.0 H*, VBG HCO3 35.1 H, VBG Total CO2 37.3 H, VBG O2 Sat (Calc) 50.9, VBG Base Excess 5.9 H, VBG Potassium 4.9, Glucose 112 H, Lactate 1.1, FiO2 21.0, Sodium 132.0, Chloride 95.0 L, Venous Blood Potassium 4.9 09/12/17 19:00: Influenza Typ A,B (EIA) Negative for flu a/b 09/12/17 18:45: Procalcitonin < 0.05 L 09/12/17 18:45: Sodium 134, Potassium 4.7, Chloride 91 L, Carbon Dioxide 32, Anion Gap 15, BUN 39 H, Creatinine 1.0, Est GFR ( Amer) > 60, Est GFR ( Non-Af Amer) 53, Random Glucose 116 H, Calcium 10.0, Total Bilirubin 1.4 H, AST 51 H D, ALT 36, Alkaline Phosphatase 134 H D, Lactate Dehydrogenase 805 H, Total Creatine Kinase 41, Troponin I 0.05 D, NT-Pro-B Natriuret Pep 9730 H, Total Protein 8.1, Albumin 4.1, Globulin 4.0, Albumin/Globulin Ratio 1.0 L 09/12/17 18:45: PT 28.2 H, INR 2.43 H, APTT 54.4 H 09/12/17 18:45: WBC 6.3 D, RBC 4.44, Hgb 13.1, Hct 40.1, MCV 90.3, MCH 29.5, MCHC 32.7, RDW 15.3 H, Plt Count 226, MPV 11.3 H, Gran % 69.9 H, Lymph % (Auto) 20.8 L, [place] % (Auto) 9.0 H, Eos % (Auto) 0.0 L, Baso % (Auto) 0.3, Gran # 4.43 , Lymph # (Auto) 1.3, [place] # (Auto) 0.6, Eos # (Auto) 0.0, Baso # (Auto) 0.02 - RAD Interpretation Narrative RAD Interpretations (Text): 09/12/17 22:57 cxr preliminary interpretation, right pleural effusion, cannot exclude atelectasis or infiltrate Radiology Orders: 09/12/17 18:50 CHEST PORTABLE [RAD] Stat Senior Loan Officer: ED Physician - EKG Interpretation EKG Interpretation (Text): 09/12/17 22:56 EKG at 86, electronic ventricular pacemaker rhythm rate of 86 Interpreted by ED Physician: Yes Type: 12 lead EKG - Medication Orders Current Medication Orders: Albuterol/Ipratropium (Duoneb 3 Mg/0.5 Mg (3 Ml) Ud) 3 ml IH Q2H PRN PRN Reason: Shortness of Breath Last Admin: 09/14/17 02:42 Dose: 3 ml Albuterol/Ipratropium (Duoneb 3 Mg/0.5 Mg (3 Ml) Ud) 3 ml IH [id number] [facility] Last Admin: 09/17/17 13:05 Dose: 3 ml Atorvastatin Calcium (Lipitor) 10 mg PO DAILY [facility] Last Admin: 09/17/17 09:15 Dose: 10 mg Budesonide (Pulmicort Respules) 0.5 mg IH [id number] [facility] Last Admin: 09/17/17 07:26 Dose: 0.5 mg Furosemide (Lasix) 20 mg IVP Q12 [facility] Last Admin: 09/17/17 09:15 Dose: 20 mg MAR Blood Pressure Document 09/17/17 09:15 JUR (Rec: 09/17/17 09:16 JUR [facility] [id number]) Blood Pressure Blood Pressure (100/60-150/90) 115/44 IVP Administration Document 09/17/17 09:15 JUR (Rec: 09/17/17 09:16 JUR [facility] [id number]) Charges for Administration # of IVP Administrations 1 Methylprednisolone (Solu-Medrol) 30 mg IVP Q12 JOAO Last Admin: 09/17/17 09:15 Dose: 30 mg IVP Administration Document 09/17/17 09:15 JUR (Rec: 09/17/17 09:15 JUR [facility] [id number]) Charges for Administration # of IVP Administrations 1 Pantoprazole Sodium (Protonix Ec Tab) 40 mg PO ACB JOAO Last Admin: 09/17/17 08:00 Dose: 40 mg Potassium Chloride (K-Dur 20 Meq Er Tab) 30 meq PO BID JOAO Last Admin: 09/17/17 09:15 Dose: 30 meq Warfarin Sodium (Coumadin) 2 mg PO 1800 [facility] PRN Reason: Protocol Last Admin: 09/13/17 18:13 Dose: 2 mg Discontinued Medications Albuterol/Ipratropium (Duoneb 3 Mg/0.5 Mg (3 Ml) Ud) 3 ml IH STAT STA Stop: 09/12/17 19:41 Last Admin: 09/12/17 19:46 Dose: 3 ml Albuterol/Ipratropium (Duoneb 3 Mg/0.5 Mg (3 Ml) Ud) 3 ml IH Q15M JOAO Stop: 09/12/17 20:31 Last Admin: 09/12/17 20:44 Dose: 3 ml Albuterol/Ipratropium (Duoneb 3 Mg/0.5 Mg (3 Ml) Ud) 3 ml IH Q6H JOAO Stop: 09/13/17 10:00 Last Admin: 09/13/17 07:53 Dose: 3 ml Furosemide (Lasix) 40 mg IVP ONCE ONE Stop: 09/12/17 19:21 Last Admin: 09/12/17 19:38 Dose: 40 mg MAR Blood Pressure Document 09/12/17 19:38 LA (Rec: 09/12/17 19:38 LA [id number]) Blood Pressure Blood Pressure (100/60-150/90) 142/81 IVP Administration Document 09/12/17 19:38 LA (Rec: 09/12/17 19:38 LA [id number]) Charges for Administration # of IVP Administrations 1 Furosemide (Lasix) 40 mg IVP Q12 JOAO Last Admin: 09/12/17 22:15 Dose: Not Given Non-Admin Reason: BP Parameters Not Met MAR Blood Pressure Document 09/12/17 22:15 ID (Rec: 09/13/17 03:12 ID [facility] [id number] Blood Pressure Blood Pressure (100/60-150/90) 74/54 Furosemide (Lasix) 40 mg IVP ONCE STA Stop: 09/13/17 17:33 Last Admin: 09/13/17 18:13 Dose: 40 mg MAR Blood Pressure Document 09/13/17 18:13 JUR (Rec: 09/13/17 18:13 JUR [facility] [id number]) Blood Pressure Blood Pressure (100/60-150/90) 132/45 IVP Administration Document 09/13/17 18:13 JUR (Rec: 09/13/17 18:13 JUR [facility] [id number]) Charges for Administration # of IVP Administrations 1 Furosemide (Lasix) 40 mg IVP ONCE ONE Stop: 09/14/17 06:06 Last Admin: 09/14/17 06:09 Dose: 40 mg MAR Blood Pressure Document 09/14/17 06:09 B.P (Rec: 09/14/17 06:10 B.P [id number]) Blood Pressure Blood Pressure (100/60-150/90) 123/43 IVP Administration Document 09/14/17 06:09 B.P (Rec: 09/14/17 06:10 B.P [facility] [id number]) Charges for Administration # of IVP Administrations 1 Azithromycin (Zithromax 500mg In Ns) 500 mg in 250 mls @ 167 mls/hr IVPB STAT STA PRN Reason: Protocol Stop: 09/12/17 22:07 Last Admin: 09/12/17 23:45 Dose: 167 mls/hr eMAR Start Stop Document 09/12/17 23:45 ID (Rec: 09/12/17 23:46 ID [facility] [id number]) Intravenous Solution Start Date 09/12/17 Start Time 00:00 End Date 09/12/17 Azithromycin 250 mg/ Sodium (Chloride) 250 mls @ 167 mls/hr IVPB DAILY JOAO PRN Reason: Protocol Last Admin: 09/13/17 10:51 Dose: 167 mls/hr eMAR Start Stop Document 09/13/17 10:51 JUR (Rec: 09/13/17 10:51 JUR [facility] [id number]) Intravenous Solution Start Date 09/13/17 Start Time 11:52 End Date 09/13/17 End time 13:22 Total Infusion Time 90 Ceftriaxone Sodium (Rocephin 1 Gram Ivpb) 1 gm in 100 mls @ 100 mls/hr IVPB ONCE ONE PRN Reason: Protocol Stop: 09/12/17 21:40 Last Admin: 09/12/17 23:44 Dose: 100 mls/hr eMAR Start Stop Document 09/12/17 23:44 ID (Rec: 09/12/17 23:44 ID [facility] [id number]) Intravenous Solution Start Date 09/12/17 Start Time 22:00 End Date 09/12/17 Sodium Chloride (Sodium Chloride 0.9%) 250 mls @ 999 mls/hr IV .Q16M STA Stop: 09/13/17 00:17 Last Admin: 09/13/17 00:00 Dose: 999 mls/hr eMAR Start Stop Document 09/13/17 00:00 ID (Rec: 09/13/17 04:33 ID [facility] [id number]) Intravenous Solution Start Date 09/13/17 Start Time 00:15 End Date 09/13/17 Dopamine HCl/Dextrose (Dopamine 400mg/250ml D5w) 400 mg in 250 mls @ 15.309 mls /hr IV .[id number] PRN; Protocol; 5 MCG/KG/MIN PRN Reason: TITRATE PER MD ORDER Last Admin: 09/13/17 03:10 Dose: 5 mcg/kg/min, 15.309 mls/hr eMAR Start Stop Document 09/13/17 03:10 ID (Rec: 09/13/17 03:11 ID [facility] [id number]) Intravenous Solution Start Date 09/13/17 Start Time 03:11 End Date 09/13/17 MAR Pulse and Blood Pressure Document 09/13/17 03:10 ID (Rec: 09/13/17 03:11 ID [facility] [id number]) Pulse Pulse Rate (60-90) 70 Blood Pressure Blood Pressure (100/60-150/90) 66/34 Titration Intervention Document 09/13/17 03:10 ID (Rec: 09/13/17 03:11 ID [facility] [id number]) Titration Intake Waste Amount 0 Container Volume 250 Titration Dosing Titration Dose 5 IV Rate 15.309 Intake/Decrease Started Sodium Chloride (Sodium Chloride 0.9%) 1,000 mls @ 999 mls/hr IV .Q1H1M STA Stop: 09/13/17 08:17 Last Admin: 09/13/17 08:58 Dose: Cefepime HCl (Maxipime 2gm) 2 gm in 100 mls @ 100 mls/hr IVPB Q12 JOAO PRN Reason: Protocol Stop: 09/18/17 10:01 Last Admin: 09/13/17 21:36 Dose: 100 mls/hr eMAR Start Stop Document 09/13/17 21:36 B.P (Rec: 09/13/17 21:36 B.P [facility] [id number]) Intravenous Solution Start Date 09/13/17 Start Time 21:36 Vancomycin HCl 1.5 gm/ Sodium (Chloride) 500 mls @ 167 mls/hr IVPB ONCE ONE PRN Reason: Protocol Stop: 09/13/17 12:26 Last Admin: 09/13/17 10:52 Dose: 167 mls/hr eMAR Start Stop Document 09/13/17 10:52 JUR (Rec: 09/13/17 10:52 JUR [facility] [id number]) Intravenous Solution Start Date 09/13/17 Start Time 10:52 End Date 09/13/17 End time 12:22 Total Infusion Time 90 Sodium Chloride (Sodium Chloride 0.9%) 250 mls @ 250 mls/hr IV .Q1H JOAO Stop: 09/14/17 08:29 Last Admin: 09/14/17 07:30 Dose: 250 mls/hr eMAR Start Stop Document 09/14/17 07:30 JFG (Rec: 09/14/17 08:01 JFG [id number]) Intravenous Solution Start Date 09/14/17 Start Time 07:30 End Date 09/14/17 Sodium Chloride (Sodium Chloride 0.9%) 250 mls @ 250 mls/hr IV .Q1H JOAO Stop: 09/14/17 08:59 Last Admin: 09/14/17 08:02 Dose: 250 mls/hr eMAR Start Stop Document 09/14/17 08:02 JFG (Rec: 09/14/17 08:02 JF [id number]) Intravenous Solution Start Date 09/14/17 Start Time 08:02 End Date 09/14/17 Lisinopril (Zestril) 5 mg PO DAILY [facility] Methylprednisolone (Solu-Medrol) 40 mg IVP Q12 [facility] Last Admin: 09/16/17 21:06 Dose: 40 mg IVP Administration Document 09/16/17 21:06 ST (Rec: 09/16/17 21:06 [facility] [id number]) Charges for Administration # of IVP Administrations 1 Metoprolol Succinate (Toprol Xl) 25 mg PO BRK [facility] Last Admin: 09/13/17 08:58 Dose: Not Given Non-Admin Reason: BP Parameters Not Met Pantoprazole Sodium (Protonix Inj) 40 mg IVP DAILY [facility] Last Admin: 09/13/17 10:53 Dose: 40 mg IVP Administration Document 09/13/17 10:53 JUR (Rec: 09/13/17 10:53 JUR [facility] [id number]) Charges for Administration # of IVP Administrations 1 Disposition/Present on Arrival - Present on Arrival Any Indicators Present on Arrival: No History of DVT/PE: No History of Uncontrolled Diabetes: No Urinary Catheter: No History of Decub. Ulcer: No History Surgical Site Infection Following: None - Disposition Have Diagnosis and Disposition been Completed?: Yes Diagnosis: Respiratory distress, CHF (congestive heart failure), Elevated brain natriuretic peptide (BNP) level, Abnormal chest x-ray Disposition: HOSPITALIZED Disposition Time: 20:00 Patient Plan: Admission, ICU Patient Problems: Current Active Problems Problem Status Onset Abnormal chest x-ray Acute CHF (congestive heart failure) Acute Elevated brain natriuretic peptide (BNP) level Acute Respiratory distress Acute Condition: CRITICAL
[2017-09-13] MEDS ORDERED: Sodium Chloride 0.9% 250 ML IV STA (00:02)
[2017-09-13 00:44] LABS: BASO # 0.01 K/mm3 (0.0-2.0); BASO % 0.1 % (0.0-3.0); EOS % 0.1 % (1.5-5.0); GRAN # 6.68 (1.4-6.5); GRAN % 82.5 % (50.0-68.0); HEMOGLOBIN 11.7 g/dL (12.0-16.0); LYMPH # 0.8 (1.2-3.4); LYMPH % 9.9 % (22.0-35.0); MEAN CELL VOLUME 90.6 fl (80.0-105.0); MEAN CORPUSCULAR HEMOGLOBIN 30.5 pg (25.0-35.0); MEAN CORPUSCULAR HGB CONC 33.6 g/dl (31.0-37.0); MEAN PLATELET VOLUME 11.2 fl (7.0-11.0); MONO # 0.6 (0.1-0.6); MONO % 7.4 % (1.0-6.0); RBC 3.84 10^6/uL (3.5-6.1); RED CELL DISTRIBUTION WIDTH 15.2 % (11.5-14.5); WHITE BLOOD COUNT 8.1 10^3/ul (4.5-11.0)
[2017-09-13 00:59] LABS: ARTERIAL BLOOD GAS HCO3 28.5 mmol/L (21-28); ARTERIAL BLOOD GAS HEMOGLOBIN 10.1 g/dL (11.7-17.4); ARTERIAL BLOOD GAS O2 CAPACITY 13.8 mL/dl (16-24); ARTERIAL BLOOD GAS O2 CONTENT 13.8 ML/dl (15-23); ARTERIAL BLOOD GAS PCO2 45 mm/Hg (35-45); ARTERIAL BLOOD GAS PH 7.41 (7.35-7.45); ARTERIAL BLOOD GAS TCO2 29.9 mmol.L (22-28)
[2017-09-13 00:59] LABS: TROPONIN I 0.1 ng/mL
[2017-09-13] MEDS: Albuterol-Ipratrop 3 mg / 0.5 (3 ml) UD IH SCH ×2 (01:50→07:53)
[2017-09-13] MEDS ORDERED: DOPamine 400mg/250ml D5W 400 MG/250 ML BAG IV PRN (02:47)
[2017-09-13 06:39] LABS: URINE BILIRUBIN NEGATIVE (NEGATIVE); URINE BLOOD TRACE-LYSED (NEGATIVE); URINE GLUCOSE (UA) NEGATIVE (NEGATIVE); URINE LEUKOCYTE ESTERASE NEGATIVE Leu/uL (NEGATIVE); URINE PROTEIN NEGATIVE mg/dL (<30 mg/dL); URINE UROBILINOGEN 0.2 E.U./dL (<1 E.U./dL)
[2017-09-13 06:49] LABS: URINE APPEARANCE CLEAR (CLEAR); URINE COLOR YELLOW (YELLOW)
[2017-09-13 06:54] LABS: URINE EPITHELIAL CELLS 0 - 2 /hpf (0-5); URINE RBC 0 - 2 /hpf (0-2); URINE WBC 0 - 2 /hpf (0-6)
[2017-09-13 07:07] LABS: BASO # 0.01 K/mm3 (0.0-2.0); BASO % 0.1 % (0.0-3.0); GRAN # 6.02 (1.4-6.5); GRAN % 80.7 % (50.0-68.0); HEMOGLOBIN 12.2 g/dL (12.0-16.0); LYMPH # 0.9 (1.2-3.4); LYMPH % 11.7 % (22.0-35.0); MEAN CELL VOLUME 89.8 fl (80.0-105.0); MEAN CORPUSCULAR HEMOGLOBIN 28.8 pg (25.0-35.0); MEAN CORPUSCULAR HGB CONC 32.1 g/dl (31.0-37.0); MEAN PLATELET VOLUME 11.3 fl (7.0-11.0); MONO # 0.6 (0.1-0.6); MONO % 7.5 % (1.0-6.0); RBC 4.23 10^6/uL (3.5-6.1); RED CELL DISTRIBUTION WIDTH 15.3 % (11.5-14.5); WHITE BLOOD COUNT 7.5 10^3/ul (4.5-11.0)
[2017-09-13] MEDS ORDERED: Sodium Chloride 0.9% 1,000 ML IV STA (07:17)
[2017-09-13 07:22] LABS: ALB/GLOB RATIO 1.1 (1.1-1.8); ALBUMIN 3.7 g/dL (3.0-4.8); ALT/SGPT 29 U/L (7-56); AST/SGOT 47 U/L (14-36); B-TYPE NATRIURETIC PEPTIDE 15700 pg/mL (0-450); BLOOD UREA NITROGEN 42 mg/dL (7-21); CALCIUM 9.8 mg/dL (8.4-10.5); GFR AFRICAN-AMERICAN > 60; GFR NON-AFRICAN AMERICAN 53; HDL CHOLESTEROL 38 mg/dL (29-60)
[2017-09-13 07:27] LABS: INR 2.29 (0.93-1.08); PARTIAL THROMBOPLASTIN TIME 46.1 Seconds (25.1-36.5); PROTHROMBIN TIME 26.8 SECONDS (9.4-12.5)
[2017-09-13 07:28] LABS: FREE T4 1.89 ng/dL (0.78-2.19)
[2017-09-13 07:33] LABS: LDL CHOLESTEROL 63 mg/dL (0-129)
--- NOTE | 2017-09-13 07:58 | RAD ---
HISTORY: sob COMPARISON: 08/29/2017 FINDINGS: LUNGS: There is a persistent infiltrate and effusion at the right lung base. PLEURA: No significant pleural effusion identified, no pneumothorax apparent. CARDIOVASCULAR: Moderate cardiomegaly. Dual lead pacemaker OSSEOUS STRUCTURES: No significant abnormalities. VISUALIZED UPPER ABDOMEN: Normal. OTHER FINDINGS: None. IMPRESSION: Persistent infiltrate and effusion at the right lung base
[2017-09-13] MEDS ORDERED: Metoprolol Succinate 25 mg XL Tab PO SCH (08:00)
[2017-09-13] MEDS ORDERED: Vancomycin 1.5 GM in Sodium Chloride 0.9% 500 ML IVPB ONE (09:27)
--- NOTE | 2017-09-13 09:51 | CP.PCM.CON ---
History of Present Illness - History of Present Illness History of Present Illness: 82 year old female with PMH of obesity with BMI 37, atrial fibrillation on anticoagulation, osteoporosis, sick sinus syndrome S/P AICD and pacemaker placement 2017, S/P hysterectomy, S/P cholecystectomy [place] [facility] [place] worsening shortness of breath at rest and dyspnea on exertion. It started getting worse 3-4 days ago, with associated dry cough and increasing swelling of the legs. There was no note of fever, no vomiting, no diarrhea as per family. Full ROS is unobtainable because the patient is still tachypneic and in mild distress. In the ED, she was noted to be in respiratory distress and with some hypotension and the patient was placed on a BiPAP and sent to the ICU for closer observation. CXR shows possible infiltrates on the right base. Infectious Diseases consult is requested to further evaluate and manage. Review of Systems - Review of Systems Systems not reviewed;Unavailable: Respiratory Distress Past Patient History - Infectious Disease Hx of Infectious Diseases: None - Tetanus Immunizations Tetanus Immunization: Unknown - Past Medical History & Family History Past Medical History?: Yes - Past Social History Smoking Status: Never Smoked - CARDIAC Hx Cardiac Disorders: Yes Hx Congestive Heart Failure: Yes - PULMONARY Hx Chronic Obstructive Pulmonary Disease (COPD): Yes - NEUROLOGICAL Hx Neurological Disorder: No - HEENT Hx HEENT Problems: Yes Other/Comment: glasses - RENAL Hx Chronic Kidney Disease: No - ENDOCRINE/METABOLIC Hx Endocrine Disorders: No - HEMATOLOGICAL/ONCOLOGICAL Hx Blood Disorders: No - INTEGUMENTARY Hx Dermatological Problems: No - MUSCULOSKELETAL/RHEUMATOLOGICAL Hx Arthritis: Yes (OA) - GASTROINTESTINAL Hx Gastrointestinal Disorders: No - GENITOURINARY/GYNECOLOGICAL Hx Genitourinary Disorders: No Hx Reproductive Disorders: No - PSYCHIATRIC Hx Psychophysiologic Disorder: No Hx Substance Use: No - SURGICAL HISTORY Hx Cholecystectomy: Yes Other/Comment: HEMORRHOIDECTOMY,HYSTERECTOMY - ANESTHESIA Hx Anesthesia: Yes Hx Anesthesia Reactions: No Hx Malignant Hyperthermia: No Meds Allergies/Adverse Reactions: Allergies Allergy/AdvReac Type Severity Reaction Status Date / Time No Known Allergies Allergy Verified 08/27/17 20:33 - Medications Medications: Current Medications Albuterol/Ipratropium (Duoneb 3 Mg/0.5 Mg (3 Ml) Ud) 3 ml IH Q6H JOAO Stop: 09/13/17 10:00 Last Admin: 09/13/17 07:53 Dose: 3 ml Albuterol/Ipratropium (Duoneb 3 Mg/0.5 Mg (3 Ml) Ud) 3 ml IH Q2H PRN PRN Reason: Shortness of Breath Atorvastatin Calcium (Lipitor) 10 mg PO DAILY JOAO Furosemide (Lasix) 40 mg IVP Q12 [facility] Last Admin: 09/12/17 22:15 Dose: Not Given Azithromycin 250 mg/ Sodium (Chloride) 250 mls @ 167 mls/hr IVPB DAILY JOAO PRN Reason: Protocol Cefepime HCl (Maxipime 2gm) 2 gm in 100 mls @ 100 mls/hr IVPB Q12 JOAO PRN Reason: Protocol Stop: 09/18/17 10:01 Vancomycin HCl 1.5 gm/ Sodium (Chloride) 500 mls @ 167 mls/hr IVPB ONCE ONE PRN Reason: Protocol Stop: 09/13/17 12:26 Lisinopril (Zestril) 5 mg PO DAILY [facility] Metoprolol Succinate (Toprol Xl) 25 mg PO BRK [facility] Last Admin: 09/13/17 08:58 Dose: Not Given Pantoprazole Sodium (Protonix Inj) 40 mg IVP DAILY [facility] Warfarin Sodium (Coumadin) 2 mg PO 1800 [facility] PRN Reason: Protocol Physical Exam - Constitutional Appears: In Acute Distress (but better compared to initial presentation) - Head Exam Head Exam: NORMAL INSPECTION - ENT Exam ENT Exam: Mucous Membranes Moist - Neck Exam Neck exam: Negative for: Lymphadenopathy, Meningismus - Respiratory Exam Respiratory Exam: Decreased Breath Sounds, Rales (scattered) - Cardiovascular Exam Cardiovascular Exam: +S1, +S2 - GI/Abdominal Exam GI & Abdominal Exam: Soft. absent: Tenderness - Extremities Exam Extremities exam: Positive for: pedal edema Results - Vital Signs Recent Vital Signs: Last Vital Signs Temp 97.7 F 09/12/17 21:23 Pulse 70 09/13/17 03:10 Resp 27 H 09/12/17 21:25 BP 66/34 L 09/13/17 03:10 Pulse Ox 99 09/12/17 21:25 - Labs Result Diagrams: 09/13/17 05:50 09/13/17 05:50 Labs: Laboratory Results - last 24 hr 09/13/17 09/13/17 09/13/17 00:25 00:25 00:45 WBC 8.1 D RBC 3.84 Hgb 11.7 L Hct 34.8 L MCV 90.6 MCH 30.5 MCHC 33.6 RDW 15.2 H Plt Count 206 MPV 11.2 H Gran % 82.5 H Lymph % (Auto) 9.9 L [place] % (Auto) 7.4 H Eos % (Auto) 0.1 L Baso % (Auto) 0.1 Gran # 6.68 H Lymph # (Auto) 0.8 L [place] # (Auto) 0.6 Eos # (Auto) 0.0 Baso # (Auto) 0.01 PT INR APTT pCO2 45 pO2 102.0 H HCO3 28.5 H ABG pH 7.41 ABG Total CO2 29.9 H ABG O2 Saturation 100.0 H ABG O2 Content 13.8 L ABG Base Excess 3.4 H ABG Hemoglobin 10.1 L ABG Carboxyhemoglobin 2.9 H POC ABG HHb (Measured) 0 ABG Methemoglobin 1.2 ABG O2 Capacity 13.8 L Hgb O2 Saturation 95.9 FiO2 35.0 Sodium 134 Potassium 4.8 Chloride 92 L Carbon Dioxide 29 Anion Gap 17 BUN 42 H Creatinine 1.1 Est GFR ( Amer) 57 Est GFR (Non-Af Amer) 47 Random Glucose 120 H Calcium 9.0 Phosphorus 4.5 Magnesium 1.7 Total Bilirubin AST ALT Alkaline Phosphatase Troponin I 0.10 D NT-Pro-B Natriuret Pep Total Protein Albumin Globulin Albumin/Globulin Ratio Triglycerides Cholesterol LDL Cholesterol Direct HDL Cholesterol Free T4 TSH 3rd Generation Urine Color Urine Appearance Urine pH Ur Specific [place] Urine Protein Urine Glucose (UA) Urine Ketones Urine Blood Urine Nitrate Urine Bilirubin Urine Urobilinogen Ur Leukocyte Esterase Urine RBC Urine WBC Ur Epithelial Cells 09/13/17 09/13/17 09/13/17 05:50 05:50 05:50 WBC 7.5 RBC 4.23 Hgb 12.2 Hct 38.0 MCV 89.8 MCH 28.8 MCHC 32.1 RDW 15.3 H Plt Count 209 MPV 11.3 H Gran % 80.7 H Lymph % (Auto) 11.7 L [place] % (Auto) 7.5 H Eos % (Auto) 0.0 L Baso % (Auto) 0.1 Gran # 6.02 Lymph # (Auto) 0.9 L [place] # (Auto) 0.6 Eos # (Auto) 0.0 Baso # (Auto) 0.01 PT INR APTT pCO2 pO2 HCO3 ABG pH ABG Total CO2 ABG O2 Saturation ABG O2 Content ABG Base Excess ABG Hemoglobin ABG Carboxyhemoglobin POC ABG HHb (Measured) ABG Methemoglobin ABG O2 Capacity Hgb O2 Saturation FiO2 Sodium 136 Potassium 4.4 Chloride 93 L Carbon Dioxide 34 H Anion Gap 14 BUN 42 H Creatinine 1.0 Est GFR ( Amer) > 60 Est GFR (Non-Af Amer) 53 Random Glucose 125 H Calcium 9.8 Phosphorus 5.1 H Magnesium 1.8 Total Bilirubin 1.0 AST 47 H ALT 29 Alkaline Phosphatase 118 Troponin I 0.10 NT-Pro-B Natriuret Pep 59306 H Total Protein 7.1 Albumin 3.7 Globulin 3.4 Albumin/Globulin Ratio 1.1 Triglycerides 97 Cholesterol 127 L LDL Cholesterol Direct 63 HDL Cholesterol 38 Free T4 1.89 TSH 3rd Generation 0.51 Urine Color Urine Appearance Urine pH Ur Specific [place] Urine Protein Urine Glucose (UA) Urine Ketones Urine Blood Urine Nitrate Urine Bilirubin Urine Urobilinogen Ur Leukocyte Esterase Urine RBC Urine WBC Ur Epithelial Cells 09/13/17 09/13/17 05:50 06:33 WBC RBC Hgb Hct MCV MCH MCHC RDW Plt Count MPV Gran % Lymph % (Auto) [place] % (Auto) Eos % (Auto) Baso % (Auto) Gran # Lymph # (Auto) [place] # (Auto) Eos # (Auto) Baso # (Auto) PT 26.8 H INR 2.29 H APTT 46.1 H pCO2 pO2 HCO3 ABG pH ABG Total CO2 ABG O2 Saturation ABG O2 Content ABG Base Excess ABG Hemoglobin ABG Carboxyhemoglobin POC ABG HHb (Measured) ABG Methemoglobin ABG O2 Capacity Hgb O2 Saturation FiO2 Sodium Potassium Chloride Carbon Dioxide Anion Gap BUN Creatinine Est GFR ( Amer) Est GFR (Non-Af Amer) Random Glucose Calcium Phosphorus Magnesium Total Bilirubin AST ALT Alkaline Phosphatase Troponin I NT-Pro-B Natriuret Pep Total Protein Albumin Globulin Albumin/Globulin Ratio Triglycerides Cholesterol LDL Cholesterol Direct HDL Cholesterol Free T4 TSH 3rd Generation Urine Color Yellow Urine Appearance Clear Urine pH 5.0 Ur Specific [place] 1.015 Urine Protein Negative Urine Glucose (UA) Negative Urine Ketones Negative Urine Blood Trace-lysed H Urine Nitrate Negative Urine Bilirubin Negative Urine Urobilinogen 0.2 Ur Leukocyte Esterase Negative Urine RBC 0 - 2 Urine WBC 0 - 2 Ur Epithelial Cells 0 - 2 Assessment & Plan - Assessment and Plan (Free Text) Plan: Assessment SIRS (tachypnea and tachycardia), consider due to acute on chronic CHF R/O sepsis from HCAP on right lower lobe lobe osteoporosis sick sinus syndrome S/P AICD and pacemaker placement 2017 S/P hysterectomy S/P cholecystectomy obesity with BMI 33 atrial fibrillation on anticoagulation Plan gave a dose of IV Vancomycin and started Cefepime and Zithromax pending blood cx , PCT; reviewed CXR - will also await CT chest - if cultures are negative, may d /c antibiotics follow up Pulmonary evaluation will monitor clinically
--- NOTE | 2017-09-13 09:58 | CARD ---
APPROVED REPORT EKG Measurement Heart [id number] <Conclusion> Electronic ventricular pacemaker: 100% V. Paced
[2017-09-13] MEDS ORDERED: cefTRIAXone 1 gm 1 GM/100 ML BAG IVPB SCH (10:00)
[2017-09-13] MEDS ORDERED: Azithromycin 250 MG in Sodium Chloride 0.9% 250 ML IVPB SCH (10:00)
--- NOTE | 2017-09-13 10:07 | CARD ---
APPROVED REPORT EKG Measurement Heart [id number] <Conclusion> Electronic ventricular pacemaker: 100 % V. Paced. A. Flutter. PVC
[2017-09-13] MEDS: Cefepime IV 2 gm in NS 2 GM/100 ML BAG IVPB SCH ×2 (10:51→21:36)
--- NOTE | 2017-09-13 11:15 | CP.CCUPN ---
CCU Subjective - Physician Review Subjective (Free Text): 09/13/17 11:11 Patient seen and examined at bedside in no acute distress. States she currently has no trouble breathing, and wants to sit up in her chair. Patient states cough is improving. Patient denies nausea, vomiting, diarrhea, chest pain, shortness of breath, body aches. Critical Care Time Spent (in minutes): 40 CCU Objective - Vital Signs / Intake & Output Intake and Output (Last 8hrs): Intake & Output 09/12/17 09/13/17 09/13/17 22:59 06:59 14:59 Intake Total 625 Output Total 900 Balance -275 Intake: IV 625 Right Antecubital 625 Oral 0 Output: Urine 900 Urethral ([place]on[place]) 900 Stool 0 Other: Voiding Method Indwelling Catheter - Physical Exam Head: Positive for: Atraumatic Pupils: Positive for: PERRL Extroacular Muscles: Positive for: EOMI Mouth: Positive for: Moist Mucous Membranes Pharnyx: Negative for: ERYTHEMA Neck: Positive for: JVD. Negative for: Meningeal Signs, MIDLINE TENDERNESS Respiratory/Chest: Positive for: Rales (rales noted in bilateral bases, right greater than lef), Tachypneic. Negative for: Retracting Cardiovascular: Positive for: Regular Rate and Rhythm, Murmurs Abdomen: Positive for: Distention. Negative for: Tenderness, Peritoneal Signs, Rebound, Guarding Rectal: Negative for: Gross Blood Back: Negative for: CVA Tenderness Upper Extremity: Negative for: Cyanosis Lower Extremity: Positive for: Edema, NORMAL PULSES, Normal ROM, Swelling, Neurovascularly Intact. Negative for: CALF TENDERNESS, Tenderness Neurological: Positive for: Motor Func Grossly Intact, Normal Sensory Function Skin: Positive for: Diaphoretic Psychiatric: Positive for: Alert, Normal Insight, Normal Concentration - Medications Active Medications: Active Medications Generic Name Dose Route Start Last Admin Trade Name Freq PRN Reason Stop Dose Admin Albuterol/Ipratropium 3 ml 09/12/17 20:35 Duoneb 3 Mg/0.5 Mg (3 Ml) Ud IH Q2H PRN Shortness of Breath Atorvastatin Calcium 10 mg 09/13/17 10:00 09/13/17 10:52 Lipitor PO Not Given DAILY JOAO Budesonide 0.5 mg 09/13/17 20:00 Pulmicort Respules IH [id number] JOAO Furosemide 40 mg 09/12/17 22:00 09/12/17 22:15 Lasix IVP Not Given Q12 JOAO Azithromycin 250 mg/ Sodium 250 mls @ 167 mls/hr 09/13/17 10:00 09/13/17 10: 51 Chloride IVPB 167 mls/hr DAILY JOAO Administration Protocol Cefepime HCl 2 gm in 100 mls @ 100 mls/hr 09/13/17 10:00 09/13/17 10:51 Maxipime 2gm IVPB 09/18/17 10:01 100 mls/hr Q12 JOAO Administration Protocol Vancomycin HCl 1.5 gm/ Sodium 500 mls @ 167 mls/hr 09/13/17 09:27 09/13/17 10 :52 Chloride IVPB 09/13/17 12:26 167 mls/hr ONCE ONE Administration Protocol Pantoprazole Sodium 40 mg 09/13/17 10:00 09/13/17 10:53 Protonix Inj IVP 40 mg DAILY JOAO Administration Warfarin Sodium 2 mg 09/13/17 18:00 Coumadin PO 1800 [facility] Protocol - Patient Studies Lab Studies: Lab Studies 09/13/17 09/13/17 09/13/17 Range/Units 06:33 05:50 05:50 WBC (4.5-11.0) 10^3/ul RBC (3.5-6.1) 10^6/uL Hgb (12.0-16.0) g/dL Hct (36.0-48.0) % MCV (80.0-105.0) fl MCH (25.0-35.0) pg MCHC (31.0-37.0) g/dl RDW (11.5-14.5) % Plt Count (120.0-450.0) 10^3/uL MPV (7.0-11.0) fl Gran % (50.0-68.0) % Lymph % (Auto) (22.0-35.0) % [place] % (Auto) (1.0-6.0) % Eos % (Auto) (1.5-5.0) % Baso % (Auto) (0.0-3.0) % Gran # (1.4-6.5) Lymph # (Auto) (1.2-3.4) [place] # (Auto) (0.1-0.6) Eos # (Auto) (0.0-0.7) Baso # (Auto) (0.0-2.0) K/mm3 PT 26.8 H (9.4-12.5) SECONDS INR 2.29 H (0.93-1.08) APTT 46.1 H (25.1-36.5) Seconds pCO2 (35-45) mm/Hg pO2 (80-100) mm/Hg HCO3 (21-28) mmol/L ABG pH (7.35-7.45) ABG Total CO2 (22-28) mmol.L ABG O2 Saturation (95-98) % ABG O2 Content (15-23) ML/dl ABG Base Excess (-2.0-3.0) mmol/L ABG Hemoglobin (11.7-17.4) g/dL ABG Carboxyhemoglobin (0.5-1.5) % POC ABG HHb (Measured) (0-5) % ABG Methemoglobin (0.0-3.0) % ABG O2 Capacity (16-24) mL/dl Hgb O2 Saturation (95.0-98.0) % FiO2 % Sodium (132-148) mmol/L Potassium (3.6-5.0) mmol/L Chloride (98-107) mmol/L Carbon Dioxide (21-33) mmol/L Anion Gap (10-20) BUN (7-21) mg/dL Creatinine (0.7-1.2) mg/dl Est GFR ( Amer) Est GFR (Non-Af Amer) Random Glucose (70-110) mg/dL Calcium (8.4-10.5) mg/dL Phosphorus (2.5-4.5) mg/dL Magnesium (1.7-2.2) mg/dL Total Bilirubin (0.2-1.3) mg/dL AST (14-36) U/L ALT (7-56) U/L Alkaline Phosphatase (38-126) U/L Troponin I ng/mL NT-Pro-B Natriuret Pep (0-450) pg/mL Total Protein (5.8-8.3) g/dL Albumin (3.0-4.8) g/dL Globulin gm/dL Albumin/Globulin Ratio (1.1-1.8) Triglycerides (35-160) mg/dL Cholesterol (130-200) mg/dL LDL Cholesterol Direct (0-129) mg/dL HDL Cholesterol (29-60) mg/dL Free T4 1.89 (0.78-2.19) ng/dL TSH 3rd Generation 0.51 (0.46-4.68) mIU/mL Urine Color Yellow (YELLOW) Urine Appearance Clear (CLEAR) Urine pH 5.0 (4.7-8.0) Ur Specific [place] 1.015 (1.005-1.035) Urine Protein Negative (<30 mg/dL) mg/dL Urine Glucose (UA) Negative (NEGATIVE) mg/dL Urine Ketones Negative (NEGATIVE) mg/dL Urine Blood Trace-lysed H (NEGATIVE) Urine Nitrate Negative (NEGATIVE) Urine Bilirubin Negative (NEGATIVE) Urine Urobilinogen 0.2 (<1 E.U./dL) E.U./dL Ur Leukocyte Esterase Negative (NEGATIVE) Jackie/uL Urine RBC 0 - 2 (0-2) /hpf Urine WBC 0 - 2 (0-6) /hpf Ur Epithelial Cells 0 - 2 (0-5) /hpf 09/13/17 09/13/17 09/13/17 Range/Units 05:50 05:50 00:45 WBC 7.5 (4.5-11.0) 10^3/ul RBC 4.23 (3.5-6.1) 10^6/uL Hgb 12.2 (12.0-16.0) g/dL Hct 38.0 (36.0-48.0) % MCV 89.8 (80.0-105.0) fl MCH 28.8 (25.0-35.0) pg MCHC 32.1 (31.0-37.0) g/dl RDW 15.3 H (11.5-14.5) % Plt Count 209 (120.0-450.0) 10^3/uL MPV 11.3 H (7.0-11.0) fl Gran % 80.7 H (50.0-68.0) % Lymph % (Auto) 11.7 L (22.0-35.0) % [place] % (Auto) 7.5 H (1.0-6.0) % Eos % (Auto) 0.0 L (1.5-5.0) % Baso % (Auto) 0.1 (0.0-3.0) % Gran # 6.02 (1.4-6.5) Lymph # (Auto) 0.9 L (1.2-3.4) [place] # (Auto) 0.6 (0.1-0.6) Eos # (Auto) 0.0 (0.0-0.7) Baso # (Auto) 0.01 (0.0-2.0) K/mm3 PT (9.4-12.5) SECONDS INR (0.93-1.08) APTT (25.1-36.5) Seconds pCO2 45 (35-45) mm/Hg pO2 102.0 H (80-100) mm/Hg HCO3 28.5 H (21-28) mmol/L ABG pH 7.41 (7.35-7.45) ABG Total CO2 29.9 H (22-28) mmol.L ABG O2 Saturation 100.0 H (95-98) % ABG O2 Content 13.8 L (15-23) ML/dl ABG Base Excess 3.4 H (-2.0-3.0) mmol/L ABG Hemoglobin 10.1 L (11.7-17.4) g/dL ABG Carboxyhemoglobin 2.9 H (0.5-1.5) % POC ABG HHb (Measured) 0 (0-5) % ABG Methemoglobin 1.2 (0.0-3.0) % ABG O2 Capacity 13.8 L (16-24) mL/dl Hgb O2 Saturation 95.9 (95.0-98.0) % FiO2 35.0 % Sodium 136 (132-148) mmol/L Potassium 4.4 (3.6-5.0) mmol/L Chloride 93 L (98-107) mmol/L Carbon Dioxide 34 H (21-33) mmol/L Anion Gap 14 (10-20) BUN 42 H (7-21) mg/dL Creatinine 1.0 (0.7-1.2) mg/dl Est GFR ( Amer) > 60 Est GFR (Non-Af Amer) 53 Random Glucose 125 H (70-110) mg/dL Calcium 9.8 (8.4-10.5) mg/dL Phosphorus 5.1 H (2.5-4.5) mg/dL Magnesium 1.8 (1.7-2.2) mg/dL Total Bilirubin 1.0 (0.2-1.3) mg/dL AST 47 H (14-36) U/L ALT 29 (7-56) U/L Alkaline Phosphatase 118 (38-126) U/L Troponin I 0.10 ng/mL NT-Pro-B Natriuret Pep 21163 H (0-450) pg/mL Total Protein 7.1 (5.8-8.3) g/dL Albumin 3.7 (3.0-4.8) g/dL Globulin 3.4 gm/dL Albumin/Globulin Ratio 1.1 (1.1-1.8) Triglycerides 97 (35-160) mg/dL Cholesterol 127 L (130-200) mg/dL LDL Cholesterol Direct 63 (0-129) mg/dL HDL Cholesterol 38 (29-60) mg/dL Free T4 (0.78-2.19) ng/dL TSH 3rd Generation (0.46-4.68) mIU/mL Urine Color (YELLOW) Urine Appearance (CLEAR) Urine pH (4.7-8.0) Ur Specific [place] (1.005-1.035) Urine Protein (<30 mg/dL) mg/dL Urine Glucose (UA) (NEGATIVE) mg/dL Urine Ketones (NEGATIVE) mg/dL Urine Blood (NEGATIVE) Urine Nitrate (NEGATIVE) Urine Bilirubin (NEGATIVE) Urine Urobilinogen (<1 E.U./dL) E.U./dL Ur Leukocyte Esterase (NEGATIVE) Jackie/uL Urine RBC (0-2) /hpf Urine WBC (0-6) /hpf Ur Epithelial Cells (0-5) /hpf 09/13/17 09/13/17 Range/Units 00:25 00:25 WBC 8.1 D (4.5-11.0) 10^3/ul RBC 3.84 (3.5-6.1) 10^6/uL Hgb 11.7 L (12.0-16.0) g/dL Hct 34.8 L (36.0-48.0) % MCV 90.6 (80.0-105.0) fl MCH 30.5 (25.0-35.0) pg MCHC 33.6 (31.0-37.0) g/dl RDW 15.2 H (11.5-14.5) % Plt Count 206 (120.0-450.0) 10^3/uL MPV 11.2 H (7.0-11.0) fl Gran % 82.5 H (50.0-68.0) % Lymph % (Auto) 9.9 L (22.0-35.0) % [place] % (Auto) 7.4 H (1.0-6.0) % Eos % (Auto) 0.1 L (1.5-5.0) % Baso % (Auto) 0.1 (0.0-3.0) % Gran # 6.68 H (1.4-6.5) Lymph # (Auto) 0.8 L (1.2-3.4) [place] # (Auto) 0.6 (0.1-0.6) Eos # (Auto) 0.0 (0.0-0.7) Baso # (Auto) 0.01 (0.0-2.0) K/mm3 PT (9.4-12.5) SECONDS INR (0.93-1.08) APTT (25.1-36.5) Seconds pCO2 (35-45) mm/Hg pO2 (80-100) mm/Hg HCO3 (21-28) mmol/L ABG pH (7.35-7.45) ABG Total CO2 (22-28) mmol.L ABG O2 Saturation (95-98) % ABG O2 Content (15-23) ML/dl ABG Base Excess (-2.0-3.0) mmol/L ABG Hemoglobin (11.7-17.4) g/dL ABG Carboxyhemoglobin (0.5-1.5) % POC ABG HHb (Measured) (0-5) % ABG Methemoglobin (0.0-3.0) % ABG O2 Capacity (16-24) mL/dl Hgb O2 Saturation (95.0-98.0) % FiO2 % Sodium 134 (132-148) mmol/L Potassium 4.8 (3.6-5.0) mmol/L Chloride 92 L (98-107) mmol/L Carbon Dioxide 29 (21-33) mmol/L Anion Gap 17 (10-20) BUN 42 H (7-21) mg/dL Creatinine 1.1 (0.7-1.2) mg/dl Est GFR ( Amer) 57 Est GFR (Non-Af Amer) 47 Random Glucose 120 H (70-110) mg/dL Calcium 9.0 (8.4-10.5) mg/dL Phosphorus 4.5 (2.5-4.5) mg/dL Magnesium 1.7 (1.7-2.2) mg/dL Total Bilirubin (0.2-1.3) mg/dL AST (14-36) U/L ALT (7-56) U/L Alkaline Phosphatase (38-126) U/L Troponin I 0.10 D ng/mL NT-Pro-B Natriuret Pep (0-450) pg/mL Total Protein (5.8-8.3) g/dL Albumin (3.0-4.8) g/dL Globulin gm/dL Albumin/Globulin Ratio (1.1-1.8) Triglycerides (35-160) mg/dL Cholesterol (130-200) mg/dL LDL Cholesterol Direct (0-129) mg/dL HDL Cholesterol (29-60) mg/dL Free T4 (0.78-2.19) ng/dL TSH 3rd Generation (0.46-4.68) mIU/mL Urine Color (YELLOW) Urine Appearance (CLEAR) Urine pH (4.7-8.0) Ur Specific [place] (1.005-1.035) Urine Protein (<30 mg/dL) mg/dL Urine Glucose (UA) (NEGATIVE) mg/dL Urine Ketones (NEGATIVE) mg/dL Urine Blood (NEGATIVE) Urine Nitrate (NEGATIVE) Urine Bilirubin (NEGATIVE) Urine Urobilinogen (<1 E.U./dL) E.U./dL Ur Leukocyte Esterase (NEGATIVE) Jackie/uL Urine RBC (0-2) /hpf Urine WBC (0-6) /hpf Ur Epithelial Cells (0-5) /hpf Laboratory Results - last 24 hr 09/13/17 09/13/17 09/13/17 00:25 00:25 00:45 WBC 8.1 D RBC 3.84 Hgb 11.7 L Hct 34.8 L MCV 90.6 MCH 30.5 MCHC 33.6 RDW 15.2 H Plt Count 206 MPV 11.2 H Gran % 82.5 H Lymph % (Auto) 9.9 L [place] % (Auto) 7.4 H Eos % (Auto) 0.1 L Baso % (Auto) 0.1 Gran # 6.68 H Lymph # (Auto) 0.8 L [place] # (Auto) 0.6 Eos # (Auto) 0.0 Baso # (Auto) 0.01 PT INR APTT pCO2 45 pO2 102.0 H HCO3 28.5 H ABG pH 7.41 ABG Total CO2 29.9 H ABG O2 Saturation 100.0 H ABG O2 Content 13.8 L ABG Base Excess 3.4 H ABG Hemoglobin 10.1 L ABG Carboxyhemoglobin 2.9 H POC ABG HHb (Measured) 0 ABG Methemoglobin 1.2 ABG O2 Capacity 13.8 L Hgb O2 Saturation 95.9 FiO2 35.0 Sodium 134 Potassium 4.8 Chloride 92 L Carbon Dioxide 29 Anion Gap 17 BUN 42 H Creatinine 1.1 Est GFR ( Amer) 57 Est GFR (Non-Af Amer) 47 Random Glucose 120 H Calcium 9.0 Phosphorus 4.5 Magnesium 1.7 Total Bilirubin AST ALT Alkaline Phosphatase Troponin I 0.10 D NT-Pro-B Natriuret Pep Total Protein Albumin Globulin Albumin/Globulin Ratio Triglycerides Cholesterol LDL Cholesterol Direct HDL Cholesterol Free T4 TSH 3rd Generation Urine Color Urine Appearance Urine pH Ur Specific [place] Urine Protein Urine Glucose (UA) Urine Ketones Urine Blood Urine Nitrate Urine Bilirubin Urine Urobilinogen Ur Leukocyte Esterase Urine RBC Urine WBC Ur Epithelial Cells 09/13/17 09/13/17 09/13/17 05:50 05:50 05:50 WBC 7.5 RBC 4.23 Hgb 12.2 Hct 38.0 MCV 89.8 MCH 28.8 MCHC 32.1 RDW 15.3 H Plt Count 209 MPV 11.3 H Gran % 80.7 H Lymph % (Auto) 11.7 L [place] % (Auto) 7.5 H Eos % (Auto) 0.0 L Baso % (Auto) 0.1 Gran # 6.02 Lymph # (Auto) 0.9 L [place] # (Auto) 0.6 Eos # (Auto) 0.0 Baso # (Auto) 0.01 PT INR APTT pCO2 pO2 HCO3 ABG pH ABG Total CO2 ABG O2 Saturation ABG O2 Content ABG Base Excess ABG Hemoglobin ABG Carboxyhemoglobin POC ABG HHb (Measured) ABG Methemoglobin ABG O2 Capacity Hgb O2 Saturation FiO2 Sodium 136 Potassium 4.4 Chloride 93 L Carbon Dioxide 34 H Anion Gap 14 BUN 42 H Creatinine 1.0 Est GFR ( Amer) > 60 Est GFR (Non-Af Amer) 53 Random Glucose 125 H Calcium 9.8 Phosphorus 5.1 H Magnesium 1.8 Total Bilirubin 1.0 AST 47 H ALT 29 Alkaline Phosphatase 118 Troponin I 0.10 NT-Pro-B Natriuret Pep 52706 H Total Protein 7.1 Albumin 3.7 Globulin 3.4 Albumin/Globulin Ratio 1.1 Triglycerides 97 Cholesterol 127 L LDL Cholesterol Direct 63 HDL Cholesterol 38 Free T4 1.89 TSH 3rd Generation 0.51 Urine Color Urine Appearance Urine pH Ur Specific [place] Urine Protein Urine Glucose (UA) Urine Ketones Urine Blood Urine Nitrate Urine Bilirubin Urine Urobilinogen Ur Leukocyte Esterase Urine RBC Urine WBC Ur Epithelial Cells 09/13/17 09/13/17 05:50 06:33 WBC RBC Hgb Hct MCV MCH MCHC RDW Plt Count MPV Gran % Lymph % (Auto) [place] % (Auto) Eos % (Auto) Baso % (Auto) Gran # Lymph # (Auto) [place] # (Auto) Eos # (Auto) Baso # (Auto) PT 26.8 H INR 2.29 H APTT 46.1 H pCO2 pO2 HCO3 ABG pH ABG Total CO2 ABG O2 Saturation ABG O2 Content ABG Base Excess ABG Hemoglobin ABG Carboxyhemoglobin POC ABG HHb (Measured) ABG Methemoglobin ABG O2 Capacity Hgb O2 Saturation FiO2 Sodium Potassium Chloride Carbon Dioxide Anion Gap BUN Creatinine Est GFR ( Amer) Est GFR (Non-Af Amer) Random Glucose Calcium Phosphorus Magnesium Total Bilirubin AST ALT Alkaline Phosphatase Troponin I NT-Pro-B Natriuret Pep Total Protein Albumin Globulin Albumin/Globulin Ratio Triglycerides Cholesterol LDL Cholesterol Direct HDL Cholesterol Free T4 TSH 3rd Generation Urine Color Yellow Urine Appearance Clear Urine pH 5.0 Ur Specific [place] 1.015 Urine Protein Negative Urine Glucose (UA) Negative Urine Ketones Negative Urine Blood Trace-lysed H Urine Nitrate Negative Urine Bilirubin Negative Urine Urobilinogen 0.2 Ur Leukocyte Esterase Negative Urine RBC 0 - 2 Urine WBC 0 - 2 Ur Epithelial Cells 0 - 2 EKG/Cardiology Studies: Cardiology / EKG Studies 09/13/17 00:03 ELECTROCARDIOGRAM Stat Comment: Reason For Exam: hypotension Fingerstick Blood Sugar Results: 109 Review of Systems - Constitutional Constitutional: absent: Fever, Chills - EENT Eyes: absent: Blurred Vision, Change in Vision Ears: UNREMARKABLE Nose/Mouth/Throat: UNREMARKABLE - Cardiovascular Cardiovascular: absent: Chest Pain, Dyspnea - Respiratory Respiratory: Cough. absent: Dyspnea - Gastrointestinal Gastrointestinal: absent: Abdominal Pain, Diarrhea, Nausea, Vomiting - Genitourinary Genitourinary: UNREMARKABLE. absent: Dysuria - Musculoskeletal Additional comments: rib pain from previous CPR on last admission - Neurological Neurological: UNREMARKABLE. absent: Dizziness, Numbness - Psychiatric Psychiatric: UNREMARKABLE. absent: Anxiety Critical Care Progress Note - Nutrition Nutrition: Nutrition Category Date Time Status Heart Healthy Diet [DIET] Diets 09/13/17 Breakfast Ordered Assessment/Plan - Assessment and Plan (Free Text) Plan: Neurologic -AAOx3 -aware of current condition and is in agreement with plan Cardiovascular CHF -06/2017 echo showed normal left ventricular function. 08/2017 left ventricular function mildly impaired with EF 40-45%. New echo pending -Dopamine drip stopped, patient is normotensive. Continue to monitor BP and HR -Continue to hold lasix and elevate lower extremities -Continue to keep head above bed 45 degrees -Continue to monitor I&O last measured: 600 in, 900 out. -Keep lisinopril and Toprol XL on hold Atrial Fibrillation -Continue with warfarin Pulmonic -Persistent infiltrate and effusion at the right lung base -Chest CT pending -Continue with duonebs as patient has expiratory wheezing -Procalcitonin ordered; pending -Started on azithromycin and rocephin -Maintain O2 sat >92% Infectious disease -Procalcitonin pending -Continue with azithromycin and rocephin -Patient currently afebrile; continue to monitor as well as WBC Gastrointestinal -Continue to monitor liver enzymes, slight elevation however improved from past admission -Heart healthy diet started Endocrine -maintain normothermia and normotension Disposition: Will monitor patient in ICU overnight, transfer tomorrow to med- surg pending status
--- NOTE | 2017-09-13 12:11 | CP.PCM.HP ---
<Blas Lee - Last Filed: 09/13/17 12:04> History of Present Illness - History of Present Illness History of Present Illness: History and Physical for Dr. Ruggiero 82 year old female with past medical history of A-fib on AC, symptomatic bradycardia s/p ICD placement, osteoporosis, and arthritis presented to the hospital with worsening shortness of breath for the past 3 days. Patient accompanied by her daughter who provides medical history. Patient developed lower extremity over the last 3 days in addition to her shortness of breath. Patient also developed a cough at home. Patient denies having any fever or chills during this time. Patient had not been able to lay flat due to pain in her ribs. Patient initially admitted to ICU for bradycardia and hypotension, started on Dopamine drip. Patient denies chest pain, nausea, vomiting, fever, chills, dysuria, syncope, changes in vision, congestion. PMH: Afib on coumadin, symptomatic bradycardia s/p ICD placed August 2017, osteoporosis, and arthritis SH: hysterectomy and cholecystectomy Meds: Reviewed, as per MAR Allergies: NKDA Social Hx: Denies Tobacco, etoh, illicit drug use FMH: Multiple myeloma Present on Admission - Present on Admission Any Indicators Present on Admission: No Review of Systems - Review of Systems Review of Systems: 12 ROS as per HPI, otherwise negative Past Patient History - Infectious Disease Hx of Infectious Diseases: None - Tetanus Immunizations Tetanus Immunization: Unknown - Past Medical History & Family History Past Medical History?: Yes - Past Social History Smoking Status: Never Smoked - CARDIAC Hx Cardiac Disorders: Yes Hx Congestive Heart Failure: Yes - PULMONARY Hx Chronic Obstructive Pulmonary Disease (COPD): Yes - NEUROLOGICAL Hx Neurological Disorder: No - HEENT Hx HEENT Problems: Yes Other/Comment: glasses - RENAL Hx Chronic Kidney Disease: No - ENDOCRINE/METABOLIC Hx Endocrine Disorders: No - HEMATOLOGICAL/ONCOLOGICAL Hx Blood Disorders: No - INTEGUMENTARY Hx Dermatological Problems: No - MUSCULOSKELETAL/RHEUMATOLOGICAL Hx Arthritis: Yes (OA) - GASTROINTESTINAL Hx Gastrointestinal Disorders: No - GENITOURINARY/GYNECOLOGICAL Hx Genitourinary Disorders: No Hx Reproductive Disorders: No - PSYCHIATRIC Hx Psychophysiologic Disorder: No Hx Substance Use: No - SURGICAL HISTORY Hx Cholecystectomy: Yes Other/Comment: HEMORRHOIDECTOMY,HYSTERECTOMY - ANESTHESIA Hx Anesthesia: Yes Hx Anesthesia Reactions: No Hx Malignant Hyperthermia: No Meds Allergies/Adverse Reactions: Allergies Allergy/AdvReac Type Severity Reaction Status Date / Time No Known Allergies Allergy Verified 08/27/17 20:33 Physical Exam - Constitutional Appears: Non-toxic, No Acute Distress - Head Exam Head Exam: ATRAUMATIC, NORMAL INSPECTION, NORMOCEPHALIC - Eye Exam Eye Exam: EOMI, Normal appearance - ENT Exam ENT Exam: Mucous Membranes Moist, Normal Exam - Respiratory Exam Respiratory Exam: Decreased Breath Sounds, Rales, Rhonchi, NORMAL BREATHING PATTERN - Cardiovascular Exam Cardiovascular Exam: RRR, +S1, +S2 - GI/Abdominal Exam GI & Abdominal Exam: Normal Bowel Sounds, Soft. absent: Tenderness - Extremities Exam Extremities exam: Positive for: normal inspection, pedal edema. Negative for: calf tenderness - Neurological Exam Neurological exam: Alert, CN II-XII Intact, Oriented x3 - Psychiatric Exam Psychiatric exam: Normal Affect, Normal Mood - Skin Skin Exam: Intact, Normal Color, Warm Results - Vital Signs Recent Vital Signs: Last Vital Signs Temp 97.7 F 09/12/17 21:23 Pulse 70 09/13/17 03:10 Resp 27 H 09/12/17 21:25 BP 66/34 L 09/13/17 03:10 Pulse Ox 99 09/12/17 21:25 - Labs Result Diagrams: 09/13/17 05:50 09/13/17 05:50 Labs: Laboratory Results - last 24 hr 09/13/17 09/13/17 09/13/17 00:25 00:25 00:45 WBC 8.1 D RBC 3.84 Hgb 11.7 L Hct 34.8 L MCV 90.6 MCH 30.5 MCHC 33.6 RDW 15.2 H Plt Count 206 MPV 11.2 H Gran % 82.5 H Lymph % (Auto) 9.9 L [place] % (Auto) 7.4 H Eos % (Auto) 0.1 L Baso % (Auto) 0.1 Gran # 6.68 H Lymph # (Auto) 0.8 L [place] # (Auto) 0.6 Eos # (Auto) 0.0 Baso # (Auto) 0.01 PT INR APTT pCO2 45 pO2 102.0 H HCO3 28.5 H ABG pH 7.41 ABG Total CO2 29.9 H ABG O2 Saturation 100.0 H ABG O2 Content 13.8 L ABG Base Excess 3.4 H ABG Hemoglobin 10.1 L ABG Carboxyhemoglobin 2.9 H POC ABG HHb (Measured) 0 ABG Methemoglobin 1.2 ABG O2 Capacity 13.8 L Hgb O2 Saturation 95.9 FiO2 35.0 Sodium 134 Potassium 4.8 Chloride 92 L Carbon Dioxide 29 Anion Gap 17 BUN 42 H Creatinine 1.1 Est GFR ( Amer) 57 Est GFR (Non-Af Amer) 47 Random Glucose 120 H Calcium 9.0 Phosphorus 4.5 Magnesium 1.7 Total Bilirubin AST ALT Alkaline Phosphatase Troponin I 0.10 D NT-Pro-B Natriuret Pep Total Protein Albumin Globulin Albumin/Globulin Ratio Triglycerides Cholesterol LDL Cholesterol Direct HDL Cholesterol Free T4 TSH 3rd Generation Urine Color Urine Appearance Urine pH Ur Specific Rice Urine Protein Urine Glucose (UA) Urine Ketones Urine Blood Urine Nitrate Urine Bilirubin Urine Urobilinogen Ur Leukocyte Esterase Urine RBC Urine WBC Ur Epithelial Cells 09/13/17 09/13/17 09/13/17 05:50 05:50 05:50 WBC 7.5 RBC 4.23 Hgb 12.2 Hct 38.0 MCV 89.8 MCH 28.8 MCHC 32.1 RDW 15.3 H Plt Count 209 MPV 11.3 H Gran % 80.7 H Lymph % (Auto) 11.7 L [place] % (Auto) 7.5 H Eos % (Auto) 0.0 L Baso % (Auto) 0.1 Gran # 6.02 Lymph # (Auto) 0.9 L [place] # (Auto) 0.6 Eos # (Auto) 0.0 Baso # (Auto) 0.01 PT INR APTT pCO2 pO2 HCO3 ABG pH ABG Total CO2 ABG O2 Saturation ABG O2 Content ABG Base Excess ABG Hemoglobin ABG Carboxyhemoglobin POC ABG HHb (Measured) ABG Methemoglobin ABG O2 Capacity Hgb O2 Saturation FiO2 Sodium 136 Potassium 4.4 Chloride 93 L Carbon Dioxide 34 H Anion Gap 14 BUN 42 H Creatinine 1.0 Est GFR ( Amer) > 60 Est GFR (Non-Af Amer) 53 Random Glucose 125 H Calcium 9.8 Phosphorus 5.1 H Magnesium 1.8 Total Bilirubin 1.0 AST 47 H ALT 29 Alkaline Phosphatase 118 Troponin I 0.10 NT-Pro-B Natriuret Pep 99948 H Total Protein 7.1 Albumin 3.7 Globulin 3.4 Albumin/Globulin Ratio 1.1 Triglycerides 97 Cholesterol 127 L LDL Cholesterol Direct 63 HDL Cholesterol 38 Free T4 1.89 TSH 3rd Generation 0.51 Urine Color Urine Appearance Urine pH Ur Specific Rice Urine Protein Urine Glucose (UA) Urine Ketones Urine Blood Urine Nitrate Urine Bilirubin Urine Urobilinogen Ur Leukocyte Esterase Urine RBC Urine WBC Ur Epithelial Cells 09/13/17 09/13/17 05:50 06:33 WBC RBC Hgb Hct MCV MCH MCHC RDW Plt Count MPV Gran % Lymph % (Auto) [place] % (Auto) Eos % (Auto) Baso % (Auto) Gran # Lymph # (Auto) [place] # (Auto) Eos # (Auto) Baso # (Auto) PT 26.8 H INR 2.29 H APTT 46.1 H pCO2 pO2 HCO3 ABG pH ABG Total CO2 ABG O2 Saturation ABG O2 Content ABG Base Excess ABG Hemoglobin ABG Carboxyhemoglobin POC ABG HHb (Measured) ABG Methemoglobin ABG O2 Capacity Hgb O2 Saturation FiO2 Sodium Potassium Chloride Carbon Dioxide Anion Gap BUN Creatinine Est GFR ( Amer) Est GFR (Non-Af Amer) Random Glucose Calcium Phosphorus Magnesium Total Bilirubin AST ALT Alkaline Phosphatase Troponin I NT-Pro-B Natriuret Pep Total Protein Albumin Globulin Albumin/Globulin Ratio Triglycerides Cholesterol LDL Cholesterol Direct HDL Cholesterol Free T4 TSH 3rd Generation Urine Color Yellow Urine Appearance Clear Urine pH 5.0 Ur Specific Rice 1.015 Urine Protein Negative Urine Glucose (UA) Negative Urine Ketones Negative Urine Blood Trace-lysed H Urine Nitrate Negative Urine Bilirubin Negative Urine Urobilinogen 0.2 Ur Leukocyte Esterase Negative Urine RBC 0 - 2 Urine WBC 0 - 2 Ur Epithelial Cells 0 - 2 Assessment & Plan - Assessment and Plan (Free Text) Plan: 1. CHF exacerbation 2. HCAP 3. Osteoporosis 4. A-fib 5. Obesity 82 year old female presents with CHF exacerbation likely due to HCAP. Patient with RLL infiltrate on x-ray, will obtain chest CT to further evaluate. Dopamine off at this time. Patient currently being seen by cardiology who recommend echocardiogram in the setting of mild elevated troponins. Patient also being evaluated by ID who have started patient on Vancomycin, Azithromycin , and Cefepime. Lasix held at this time due to hypotension. Will continue to follow cultures and procal, along with results of further imaging. Continue GI/ DVT prophylaxis. Jesus, PGY-2 <Monik,Jw S - Last Filed: 09/15/17 14:30> Results - Vital Signs Recent Vital Signs: Last Vital Signs Temp 97.7 F 09/12/17 21:23 Pulse 70 09/13/17 18:00 Resp 35 H 09/13/17 15:20 BP 132/45 L 09/13/17 18:13 Pulse Ox 96 09/13/17 15:20 - Labs Result Diagrams: 09/15/17 05:30 09/15/17 05:30 Labs: Laboratory Results - last 24 hr 09/13/17 09/13/17 09/13/17 00:25 00:25 00:45 WBC 8.1 D RBC 3.84 Hgb 11.7 L Hct 34.8 L MCV 90.6 MCH 30.5 MCHC 33.6 RDW 15.2 H Plt Count 206 MPV 11.2 H Gran % 82.5 H Lymph % (Auto) 9.9 L [place] % (Auto) 7.4 H Eos % (Auto) 0.1 L Baso % (Auto) 0.1 Gran # 6.68 H Lymph # (Auto) 0.8 L [place] # (Auto) 0.6 Eos # (Auto) 0.0 Baso # (Auto) 0.01 PT INR APTT pCO2 45 pO2 102.0 H HCO3 28.5 H ABG pH 7.41 ABG Total CO2 29.9 H ABG O2 Saturation 100.0 H ABG O2 Content 13.8 L ABG Base Excess 3.4 H ABG Hemoglobin 10.1 L ABG Carboxyhemoglobin 2.9 H POC ABG HHb (Measured) 0 ABG Methemoglobin 1.2 ABG O2 Capacity 13.8 L Hgb O2 Saturation 95.9 FiO2 35.0 Sodium 134 Potassium 4.8 Chloride 92 L Carbon Dioxide 29 Anion Gap 17 BUN 42 H Creatinine 1.1 Est GFR ( Amer) 57 Est GFR (Non-Af Amer) 47 Random Glucose 120 H Calcium 9.0 Phosphorus 4.5 Magnesium 1.7 Total Bilirubin AST ALT Alkaline Phosphatase Troponin I 0.10 D NT-Pro-B Natriuret Pep Total Protein Albumin Globulin Albumin/Globulin Ratio Triglycerides Cholesterol LDL Cholesterol Direct HDL Cholesterol Free T4 TSH 3rd Generation Urine Color Urine Appearance Urine pH Ur Specific [place] Urine Protein Urine Glucose (UA) Urine Ketones Urine Blood Urine Nitrate Urine Bilirubin Urine Urobilinogen Ur Leukocyte Esterase Urine RBC Urine WBC Ur Epithelial Cells 09/13/17 09/13/17 09/13/17 05:50 05:50 05:50 WBC 7.5 RBC 4.23 Hgb 12.2 Hct 38.0 MCV 89.8 MCH 28.8 MCHC 32.1 RDW 15.3 H Plt Count 209 MPV 11.3 H Gran % 80.7 H Lymph % (Auto) 11.7 L [place] % (Auto) 7.5 H Eos % (Auto) 0.0 L Baso % (Auto) 0.1 Gran # 6.02 Lymph # (Auto) 0.9 L [place] # (Auto) 0.6 Eos # (Auto) 0.0 Baso # (Auto) 0.01 PT INR APTT pCO2 pO2 HCO3 ABG pH ABG Total CO2 ABG O2 Saturation ABG O2 Content ABG Base Excess ABG Hemoglobin ABG Carboxyhemoglobin POC ABG HHb (Measured) ABG Methemoglobin ABG O2 Capacity Hgb O2 Saturation FiO2 Sodium 136 Potassium 4.4 Chloride 93 L Carbon Dioxide 34 H Anion Gap 14 BUN 42 H Creatinine 1.0 Est GFR ( Amer) > 60 Est GFR (Non-Af Amer) 53 Random Glucose 125 H Calcium 9.8 Phosphorus 5.1 H Magnesium 1.8 Total Bilirubin 1.0 AST 47 H ALT 29 Alkaline Phosphatase 118 Troponin I 0.10 NT-Pro-B Natriuret Pep 44829 H Total Protein 7.1 Albumin 3.7 Globulin 3.4 Albumin/Globulin Ratio 1.1 Triglycerides 97 Cholesterol 127 L LDL Cholesterol Direct 63 HDL Cholesterol 38 Free T4 1.89 TSH 3rd Generation 0.51 Urine Color Urine Appearance Urine pH Ur Specific [place] Urine Protein Urine Glucose (UA) Urine Ketones Urine Blood Urine Nitrate Urine Bilirubin Urine Urobilinogen Ur Leukocyte Esterase Urine RBC Urine WBC Ur Epithelial Cells 09/13/17 09/13/17 09/13/17 05:50 06:33 17:00 WBC RBC Hgb Hct MCV MCH MCHC RDW Plt Count MPV Gran % Lymph % (Auto) [place] % (Auto) Eos % (Auto) Baso % (Auto) Gran # Lymph # (Auto) [place] # (Auto) Eos # (Auto) Baso # (Auto) PT 26.8 H INR 2.29 H APTT 46.1 H pCO2 54 H pO2 66.0 L HCO3 30.5 H ABG pH 7.36 ABG Total CO2 32.2 H ABG O2 Saturation 97.1 ABG O2 Content 16.0 ABG Base Excess 3.9 H ABG Hemoglobin 12.1 ABG Carboxyhemoglobin 2.4 H POC ABG HHb (Measured) 2.8 ABG Methemoglobin 1.0 ABG O2 Capacity 16.5 Hgb O2 Saturation 93.8 L FiO2 32.0 Sodium Potassium Chloride Carbon Dioxide Anion Gap BUN Creatinine Est GFR ( Amer) Est GFR (Non-Af Amer) Random Glucose Calcium Phosphorus Magnesium Total Bilirubin AST ALT Alkaline Phosphatase Troponin I NT-Pro-B Natriuret Pep Total Protein Albumin Globulin Albumin/Globulin Ratio Triglycerides Cholesterol LDL Cholesterol Direct HDL Cholesterol Free T4 TSH 3rd Generation Urine Color Yellow Urine Appearance Clear Urine pH 5.0 Ur Specific [place] 1.015 Urine Protein Negative Urine Glucose (UA) Negative Urine Ketones Negative Urine Blood Trace-lysed H Urine Nitrate Negative Urine Bilirubin Negative Urine Urobilinogen 0.2 Ur Leukocyte Esterase Negative Urine RBC 0 - 2 Urine WBC 0 - 2 Ur Epithelial Cells 0 - 2 Assessment & Plan - Assessment and Plan (Free Text) Plan: Pt's seen and examined. Agree with above not of medical detailist. Pt with CHF secondary to systolic dysfunction. On IV Abx for HCAP. Meds reviewed. Labs reviewed. Continue with ICU. Spoke to daughter at bedside. She is using a BIPAP. Will get Cardio and ID evaluation.
--- NOTE | 2017-09-13 13:23 | CON ---
DATE: 09/13/2017 PULMONARY CONSULTATION REASON FOR CONSULTATION: Rule out pneumonia. REFERRING PHYSICIAN: Jw Ruggiero MD HISTORY OF PRESENT ILLNESS: The patient is an 82-year-old female, with past medical history significant for congestive heart failure, chronic cardiac arrhythmias (on Coumadin), status post ICD placement, coronary artery disease, status post recent myocardial infarction, status post recent cardiopulmonary resuscitation (where she sustained broken ribs), who presents to [facility] with a 3-day history of worsening shortness of breath at rest, dyspnea on exertion, cough, and minimal sputum production. There is no history of chest pain, coughing up of blood, or chest pain - made worse with deep respirations. There is no history of temperatures, chills or infectious exposure. There is no history of night sweats, weight loss or appetite change prior to the above events. No history of calf pains. No history of syncope or diaphoresis. No history of recent travel or trauma. REVIEW OF SYSTEMS: No history of nausea, vomiting or diarrhea. No acute urinary symptoms. No new neurologic or musculoskeletal complaints. Rest of the review of systems is negative. ALLERGIES: NO KNOWN ALLERGIES. SOCIAL HISTORY: Negative for tobacco and negative for alcohol. FAMILY HISTORY: No inheritable diseases. HOME MEDICATIONS: Include Lasix, Lipitor, Percocet, Coumadin, Toprol and Zestril. PHYSICAL EXAMINATION GENERAL: The patient is mildly short of breath at the present time. She is in no acute distress. VITAL SIGNS: Last temperature recorded is 97.7, pulse is 70, respirations 22, last blood pressure recorded is 66/34. Oxygen saturation on nasal cannula is 95%. HEENT: Normocephalic, atraumatic. No JVD. CARDIOVASCULAR: Systolic ejection murmur at the lower left sternal border. Positive S3 gallop. LUNGS: Mild crackles at both bases. Mild bilateral rhonchi. No wheezing. EXTREMITIES: Positive for edema. No cyanosis or clubbing. Calves are nontender to palpation. GI: Abdomen is soft, nontender and nondistended. Bowel sounds are positive. SKIN: No acute rash. NEUROLOGIC: Limited at the present time. PERTINENT LABORATORY DATA: Chest x-ray was done yesterday and reviewed. I also compared the film done yesterday to the film done on 08/29/2017. Compared to the chest x-ray done on 08/29/2017, the most current film shows a decrease in size and density of the right lower lobe infiltrate. There is probably a small right pleural effusion. There is also moderate pulmonary vascular congestion. Complete metabolic profile: Chloride 93, carbon dioxide 34, BUN 42, glucose 125, AST 47, troponin 0.10. B-type natriuretic peptide 63678. Rest of the metabolic profile is within normal limits. Arterial blood gas was done on 35% oxygen. Results are pH 7.41, pCO2 of 45, pO2 of 102. CBC: White count 7.5, hemoglobin 12.2, hematocrit 38, platelets of 209,000. IMPRESSION: 1. Acute congestive heart failure. 2. Acute bronchitis. 3. Coronary artery disease, status post recent myocardial infarction. 4. Chronic cardiac arrhythmias. status post ICD placement. 5. Hypotension. 6. Status post recent cardiopulmonary resuscitation. 7. Recent aspiration pneumonia(last admission). PLAN: I did discuss the case with the ICU nurse at length. I have also discussed the case with the patient at length, and the patient's daughter at length. The patient presents to [facility] with a 3-day history of worsening pulmonary symptoms. Again, I did review the chest x-ray done yesterday. I have also compared the chest x-ray done yesterday to the chest x-ray done on 08/29/2017. Compared to the film done on 08/29/2017, the most current film shows a decrease in the size and density of the right lower lobe infiltrate. There may or may not be a small pleural effusion. Again, the film does show moderate pulmonary vascular congestion. I have also reviewed the laboratory data. A significant rise in the B-type natriuretic peptide is noted-- form the original value. I would continue with the treatment for congestive heart failure and coronary artery disease as per Cardiology. I did discuss the case with Dr. Rodriguez. The lasix is now on hold because of the hypotension. On physical exam, there is mild bronchospasm noted. The patient is currently on DuoNeb treatments. I will add inhaled Pulmicort this morning. The patient is also on antibiotic therapy. There is no history of temperatures. There is no leukocytosis. Procalcitonin has been ordered. Again, as above, the right lower lobe findings are actually improved on the most current film. I will also order an incentive spirometer for the patient to use. The clinical status of this patient is very guarded at this point in time. I will discuss the above with the entire ICU team the next few moments. I will also discuss the above with Dr. Ruggiero. Thank you very much for this pulmonary consultation. Vicente Nobles MD [facility]
--- NOTE | 2017-09-13 14:57 | CON ---
DATE: 09/13/2017 HISTORY OF PRESENT ILLNESS: This is an 82-year-old woman known to me with a complex recent medical history who came to the emergency room with relatively acute shortness of breath and recent cough, found to have an infiltrate and effusion at the right base on her chest x-ray, admitted to the intensive care unit with BiPAP mask and IV diuretics with pulmonary treatments. She denied complaint of chest pain. There was orthopnea. No syncope, presyncope, lightheadedness, dizziness or vertigo. No fever, chills, rigors, sweats, hemoptysis, abdominal pain, nausea, vomiting, diarrhea, constipation or melena. PAST MEDICAL HISTORY: Notable for recent admission with atrial flutter and slow ventricular rates, previously her rhythm had been atrial fibrillation with controlled ventricular rate. While on telemetry, she has an episode of ventricular tachycardia requiring brief CPR, rib fractures occurred at that time. She was transferred to [facility] for EP evaluation. She ultimately underwent cardiac catheterization, which revealed mild to moderate coronary artery disease and an apical infarct, possibly embolic in nature. An ICD was implanted. A pocket hematoma formed. She was transferred back to the TCU where she underwent a course of rehabilitation. She improved and was discharged home about a week ago. Additional past medical history includes hyperlipidemia, osteoporosis, arthritis, gallbladder surgery, hysterectomy and hernia surgery. Echocardiography has revealed mild aortic stenosis and mitral regurgitation. MEDICATIONS: At the time of admission include warfarin, potassium chloride, Lasix, Lipitor, Mag-Ox, metoprolol and lisinopril. ALLERGIES: THERE ARE NO KNOW MEDICATION ALLERGIES. SOCIAL HISTORY: She lives at home with her daughter. She is ambulatory with a walker. She does not smoke. She does not drink alcohol. FAMILY HISTORY: Noncontributory. REVIEW OF SYSTEMS: A 10-point review of systems is otherwise unremarkable except as noted above. PHYSICAL EXAMINATION GENERAL: This is an elderly woman resting in the ICU with BiPAP mask. Her daughter is at the bedside. VITAL SIGNS: Unremarkable. Her pulse is 70, she is ventricular paced. Blood pressure 134/76, repeat 74/54, she is on a dopamine drip. Respirations 27, O2 sat 96%-99% on BiPAP mask. HEENT: Reveals no neck vein distention, thyromegaly, carotid bruits. Mucous membranes moist. Conjunctivae pink. NECK: Supple. LUNGS: Lung forman, scattered rhonchi. Diminished breath sounds at the right base. HEART: Revealed a regular rhythm. Normal first and second heart sounds. ABDOMEN: Soft. Bowel sounds are present. No mass, organomegaly, tenderness, rebound, or guarding. EXTREMITIES: Revealed no cyanosis or clubbing. There is mild lower extremity edema. NEUROLOGIC: She is awake, alert, oriented. SKIN: Warm and dry. No rash or cellulitis. The pacemaker pocket hematoma is about the same as when I saw her a week ago. There is no drainage or evidence of infection. PSYCHIATRIC: Normal as to mood and affect. LABORATORY AND IMAGING: An EKG reveals a ventricular paced rhythm. A chest x-ray reveals persistent infiltrate and effusion of the right lung base. White count normal. Platelet count normal. Hemoglobin 12.2, hematocrit 38.0. PT 26.8, PTT 46.1. Blood gases are noted. Electrolytes are normal with a potassium of 4.4, creatinine 1, BUN 42, blood sugar 125, magnesium 1.8. [place] [address]. Three troponins are unremarkable. CK 41, cholesterol 127, LDL 63. Thyroid functions unremarkable. Urinalysis is noted. Influenza is negative. IMPRESSION: Devika Hernandez is an 82-year-old woman with a complex recent medical history as described above who presents with shortness of breath and cough, infiltrate and effusion at the right base with a history of an apical infarct, coronary artery disease, implantable cardioverter defibrillator implantation, chest pain due to rib fractures following brief cardiopulmonary resuscitation. PLAN: At this time, she is in the intensive care unit. Her blood pressure is running low and she is on dopamine. I would hold diuretics for now. Pulmonary consultation would be advisable. CT scan of the chest when she is able to lie flat for the procedure. We will administer warfarin and monitor INRs daily. She is getting Lipitor, Protonix, Rocephin, metoprolol. I will order an echocardiogram. She has been cultured. We will monitor daily labs, I's and O's. We will check stool for occult blood. I will follow along with you and make additional recommendations based on her clinical course. Kirit Elkind, MD [facility] # [id number] [facility]
[2017-09-13] MEDS: Albuterol-Ipratrop 3 mg / 0.5 (3 ml) UD IH PRN ×2 (16:39→20:14)
[2017-09-13 17:37] LABS: ARTERIAL BLOOD GAS HCO3 30.5 mmol/L (21-28); ARTERIAL BLOOD GAS HEMOGLOBIN 12.1 g/dL (11.7-17.4); ARTERIAL BLOOD GAS O2 CAPACITY 16.5 mL/dl (16-24); ARTERIAL BLOOD GAS O2 SAT 97.1 % (95-98); ARTERIAL BLOOD GAS PCO2 54 mm/Hg (35-45); ARTERIAL BLOOD GAS PH 7.36 (7.35-7.45); ARTERIAL BLOOD GAS TCO2 32.2 mmol.L (22-28)
[2017-09-13] MEDS: Budesonide 0.5 mg/2 ml Inhal Susp UD IH SCH (20:14)
[2017-09-14] MEDS: Albuterol-Ipratrop 3 mg / 0.5 (3 ml) UD IH PRN (02:42)
[2017-09-14 05:35] LABS: ARTERIAL BLOOD GAS HCO3 33.7 mmol/L (21-28); ARTERIAL BLOOD GAS HEMOGLOBIN 11.7 g/dL (11.7-17.4); ARTERIAL BLOOD GAS O2 CONTENT 15.6 ML/dl (15-23); ARTERIAL BLOOD GAS O2 SAT 97.8 % (95-98); ARTERIAL BLOOD GAS PCO2 52 mm/Hg (35-45); ARTERIAL BLOOD GAS PH 7.42 (7.35-7.45); ARTERIAL BLOOD GAS TCO2 35.3 mmol.L (22-28)
[2017-09-14 06:55] LABS: INR 2.83 (0.93-1.08); PROTHROMBIN TIME 33.2 SECONDS (9.4-12.5)
[2017-09-14 06:57] LABS: BASO # 0.02 K/mm3 (0.0-2.0); BASO % 0.2 % (0.0-3.0); GRAN # 6.39 (1.4-6.5); GRAN % 79.3 % (50.0-68.0); HEMOGLOBIN 12.1 g/dL (12.0-16.0); LYMPH % 12.6 % (22.0-35.0); MEAN CELL VOLUME 91.9 fl (80.0-105.0); MEAN CORPUSCULAR HEMOGLOBIN 28.9 pg (25.0-35.0); MEAN CORPUSCULAR HGB CONC 31.5 g/dl (31.0-37.0); MEAN PLATELET VOLUME 11.5 fl (7.0-11.0); MONO # 0.6 (0.1-0.6); MONO % 7.9 % (1.0-6.0); RBC 4.18 10^6/uL (3.5-6.1); RED CELL DISTRIBUTION WIDTH 15.3 % (11.5-14.5); WHITE BLOOD COUNT 8.1 10^3/ul (4.5-11.0)
[2017-09-14 07:02] LABS: ALB/GLOB RATIO 1.1 (1.1-1.8); ALBUMIN 3.7 g/dL (3.0-4.8); ALT/SGPT 31 U/L (7-56); AST/SGOT 45 U/L (14-36); BLOOD UREA NITROGEN 32 mg/dL (7-21); CALCIUM 9.5 mg/dL (8.4-10.5); GFR AFRICAN-AMERICAN > 60; GFR NON-AFRICAN AMERICAN 53
[2017-09-14] MEDS ORDERED: Sodium Chloride 0.9% 250 ML IV SCH ×2 (07:30→08:00)
--- NOTE | 2017-09-14 07:43 | CP.PCM.PN ---
Subjective - Date & Time of Evaluation Date of Evaluation: 09/14/17 Time of Evaluation: 07:00 - Subjective Subjective: Stable in ICU. Early AM SOB > IV Lasix and Bipap mask.. No CP V/S noted. Low BPs after IV Lasix noted. PE: Lungs: rhonchi, decreased BS right base Cor.: S1S2 Abd.: soft Ext.: mild edema Neuro.: alert I/O = 1490/2075 Labs: INR = 2.83, K+= 4.8, Cr.+ 1.0 BC X2 NG at 24 hrs. Echo: Will read: Prelim: preserved LV fx., mod TR and mod/sev. PH. See full report. Objective - Vital Signs/Intake and Output Vital Signs (last 24 hours): Temp Pulse Resp BP Pulse Ox 97.7 F 70 28 H 72/29 L 97 09/12/17 21:23 09/14/17 06:59 09/14/17 06:59 09/14/17 07:00 09/14/17 06:59 Intake and Output: 09/14/17 09/14/17 06:59 18:59 Intake Total 400 Output Total 1025 Balance -625 - Medications Medications: Current Medications Albuterol/Ipratropium (Duoneb 3 Mg/0.5 Mg (3 Ml) Ud) 3 ml IH Q2H PRN PRN Reason: Shortness of Breath Last Admin: 09/14/17 02:42 Dose: 3 ml Albuterol/Ipratropium (Duoneb 3 Mg/0.5 Mg (3 Ml) Ud) 3 ml IH [id number] [facility] Atorvastatin Calcium (Lipitor) 10 mg PO DAILY [facility] Last Admin: 09/13/17 10:52 Dose: Not Given Budesonide (Pulmicort Respules) 0.5 mg IH [id number] [facility] Last Admin: 09/13/17 20:14 Dose: 0.5 mg Furosemide (Lasix) 40 mg IVP Q12 [facility] Last Admin: 09/12/17 22:15 Dose: Not Given Sodium Chloride (Sodium Chloride 0.9%) 250 mls @ 250 mls/hr IV .Q1H JOAO Stop: 09/14/17 08:29 Methylprednisolone (Solu-Medrol) 40 mg IVP Q12 [facility] Pantoprazole Sodium (Protonix Ec Tab) 40 mg PO ACB JOAO Warfarin Sodium (Coumadin) 2 mg PO 1800 JOAO PRN Reason: Protocol Last Admin: 09/13/17 18:13 Dose: 2 mg - Labs Labs: 09/14/17 06:10 09/14/17 06:10 PT 33.2 SECONDS (9.4-12.5) H 09/14/17 06:10 INR 2.83 (0.93-1.08) H 09/14/17 06:10 APTT 46.1 Seconds (25.1-36.5) H 09/13/17 05:50 Assessment and Plan - Assessment and Plan (Free Text) Assessment: Dyspnea/Cough Infiltrate/Effusion right lung base CHF, diastolic Hypotension A. Flutter with slow VR/ Episode VT/ICD implant, pocket hematoma S/P brief CPR with rib fx. HLD Osteoporosis Surgeries: GB, hysterectomy, hernia Plan: IV Lasix as BP permits > neg balance Pulm eval,tx. AB Monitor: labs, INR's, I/O, sats., CXR, etc. OOB to chair as lon.
[2017-09-14] MEDS: Albuterol-Ipratrop 3 mg / 0.5 (3 ml) UD IH SCH ×3 (07:59→20:56)
[2017-09-14] MEDS: Budesonide 0.5 mg/2 ml Inhal Susp UD IH SCH ×2 (07:59→20:56)
[2017-09-14] MEDS: Pantoprazole 40 mg EC Tab PO SCH (08:33)
--- NOTE | 2017-09-14 08:38 | PN ---
DATE: 09/14/2017(640am-730am) PULMONARY NOTE SUBJECTIVE: The patient remains pswfik-[id number]-rasgfxrcds short of breath. She is in no acute distress. PHYSICAL EXAMINATION: VITAL SIGNS: Last temperature recorded is 97.7, pulse is 70, respirations 24/26, blood pressure 83/36. Oxygen saturation on nasal cannula is 96%. HEENT: Normocephalic, atraumatic. NECK: No JVD. CARDIOVASCULAR: Systolic ejection murmur at the lower left sternal border. Positive S3 gallop. LUNGS: Mild crackles at both bases. Bilateral rhonchi remain. A few wheezes are also appreciated. EXTREMITIES: Positive for edema. No cyanosis or clubbing. Calves are nontender to palpation. GI: Abdomen is soft, nontender, nondistended. Bowel sounds are positive. SKIN: No acute rash. NEUROLOGIC: Exam limited at the present time. PERTINENT LABORATORY DATA: Chest x-ray was done this morning and reviewed. There remains a hazy infiltrate at the right base. The infiltrate appears somewhat less dense compared to yesterday's film. There is also less pulmonary vascular congestion. Arterial blood gas was also done on nasal cannula. Results are pH 7.42, pCO2 of 52, pO2 of 78. Procalcitonin was done yesterday. It is negative at less than 0.05. Again, the B-type natriuretic peptide on yesterday's [id number]. Previous B-type natriuretic peptide 9730. CBC: White count 8.1, hemoglobin 12.1, hematocrit 38.4, platelets of 210, 000. IMPRESSION: 1. Acute congestive heart failure. 2. Acute bronchitis. 3. Coronary artery disease, status post recent myocardial infarction. 4. Chronic cardiac arrhythmias. Status post pacemaker insertion. 5. Hypotension. 6. Status post recent cardiopulmonary resuscitation. 7. Status post recent aspiration pneumonia (last admission). PLAN: The patient is vauflh-ox-sdqkwamxgp short of breath this morning. She is in no acute distress. I did discuss the case with the night nurse, and the daughter (at bedside) at length. The patient's blood pressure has fluctuated over the night. In addition, the patient's respiratory status has also fluctuated during the night. I did review the chest x-ray as above. There remains a hazy infiltrate at the right base. Keep in mind, the patient is status post recent aspiration pneumonia (last admission). In addition, there is probably some subsegmental atelectasis at the right base. I have ordered incentive spirometry to be used. However, aggressive pulmonary toilet is problematic-as the patient does have several broken ribs (from previous CPR efforts). I have also reviewed the laboratory data. A negative procalcitonin is noted. In addition, again, there has been no history of fevers. There has been no leukocytosis. I doubt acute pneumonia at this point in time. However, we can continue the antibiotic coverage for now. Input by Infectious Disease is noted. I have also reviewed the last arterial blood gas. The arterial blood gas is actually improved from yesterday-with normalization of the pH, and a decrease in the alveolar-arterial gradient. The patient also goes on BiPAP-- on a p.r.n. basis. Lastly,I will continue with the current nebulizer treatments,and start low dose steroids this morning. I would continue the Cardiology evaluation. Inputs are noted. The patient does have some serious cardiac issues. In addition, as above, the last B-type natriuretic peptide was significantly elevated, compared to the previous value. The Lasix is currently on hold-secondary to hypotension. I do question whether the patient could be ischemic at this point in time. The troponin has also risen-compared to the initial values. The patient appears critically ill at this point in time. Again, I did discuss the case with the night nurse and daughter at length. I have also discussed the case with the medical administrative technician at length. I will also discuss the above with Dr. Ruggiero this morning. Vicente Nobles MD [facility]
--- NOTE | 2017-09-14 09:18 | CARD ---
APPROVED REPORT EXAM: Two-dimensional and M-mode echocardiogram with Doppler and color Doppler. Other Information Quality : GoodRhythm : INDICATION Dyspnea , recent VT, CHF 2D DIMENSIONS Left Atrium (2D)4.8 (1.6-4.0cm)IVSd1.0 (0.7-1.1cm) LVDd5.1 (3.9-5.9cm)PWd1.2 (0.7-1.1cm) LVDs3.8 (2.5-4.0cm)FS (%) 25.7 % LVEF (%)50.0 (>50%) M-Mode DIMENSIONS Aortic Root2.30 (2.2-3.7cm)Aortic Cusp Exc.1.40 (1.5-2.0cm) Aortic Valve AoV Peak Sumgimmh258.0cm/Trina Peak GR.20mmHg Mitral Valve E/A ratio0.0 TDI E/Lateral E'0.0E/Medial E'0.0 Tricuspid Valve TR Peak [id number]/[id number] [id number] Peak Gr.53mmHg [id number] LEFT VENTRICLE The left ventricle is normal size. There is normal left ventricular wall thickness. The left ventricular function is normal. The left ventricular ejection fraction is within the normal range. There is normal LV segmental wall motion. RIGHT VENTRICLE The right ventricle is normal size. There is a pacemaker/ICD lead in the right ventricle. ATRIA The left atrium is moderately dilated. A pacemakeIC?lead is seen in the right atrium. The right atrium is mildly dilated. The interatrial septum is intact with no evidence for an atrial septal defect. AORTIC VALVE The aortic valve is mildly to moderately calcified. MITRAL VALVE The mitral valve is normal in structure. Mitral regurgitation is mild to moderate. TRICUSPID VALVE The tricuspid valve is normal in structure. There is moderate tricuspid regurgitation. There is moderate-severe pulmonary hypertension. PULMONIC VALVE The pulmonic valve is not well visualized. There is trace pulmonic valvular regurgitation. GREAT VESSELS The aortic root is normal in size. PERICARDIAL EFFUSION There is no pericardial effusion. <Conclusion> The left ventricle is normal size. There is normal left ventricular wall thickness. The left ventricular function is normal. The aortic valve is mildly to moderately calcified. Aortic sclerosis vs. mild . Mitral regurgitation is mild to moderate. There is moderate tricuspid regurgitation. There is moderate-severe pulmonary hypertension.
[2017-09-14] MEDS: MethylPREDNISolone 40 mg Vial IVP SCH ×2 (09:19→22:40)
--- NOTE | 2017-09-14 09:28 | RAD ---
HISTORY: follow up COMPARISON: 09/12/2017 FINDINGS: LUNGS: There is a persistent infiltrate and effusion at the right lung base. The lungs are otherwise clear PLEURA: Small effusion on the right CARDIOVASCULAR: Mild cardiomegaly. OSSEOUS STRUCTURES: No significant abnormalities. VISUALIZED UPPER ABDOMEN: Normal. OTHER FINDINGS: None. IMPRESSION: Persistent infiltrate and effusion at the right lung base. No significant change
--- NOTE | 2017-09-14 10:00 | CP.PCM.PN ---
Subjective - Date & Time of Evaluation Date of Evaluation: 09/14/17 Time of Evaluation: 09:00 - Subjective Subjective: Still tachypneic at rest, no fevers, no diarrhea, no vomiting. Objective - Vital Signs/Intake and Output Vital Signs (last 24 hours): Temp Pulse Resp BP Pulse Ox 97.7 F 71 28 H 95/54 L 96 09/12/17 21:23 09/14/17 04:00 09/14/17 04:00 09/14/17 04:00 09/14/17 04:00 Intake and Output: 09/13/17 09/14/17 18:59 06:59 Intake Total 1090 Output Total 1050 Balance 40 - Medications Medications: Current Medications Albuterol/Ipratropium (Duoneb 3 Mg/0.5 Mg (3 Ml) Ud) 3 ml IH Q2H PRN PRN Reason: Shortness of Breath Last Admin: 09/14/17 02:42 Dose: 3 ml Atorvastatin Calcium (Lipitor) 10 mg PO DAILY [facility] Last Admin: 09/13/17 10:52 Dose: Not Given Budesonide (Pulmicort Respules) 0.5 mg IH [id number] JOAO Last Admin: 09/13/17 20:14 Dose: 0.5 mg Furosemide (Lasix) 40 mg IVP Q12 JOAO Last Admin: 09/12/17 22:15 Dose: Not Given Pantoprazole Sodium (Protonix Ec Tab) 40 mg PO ACB JOAO Warfarin Sodium (Coumadin) 2 mg PO 1800 JOAO PRN Reason: Protocol Last Admin: 09/13/17 18:13 Dose: 2 mg - Labs Labs: 09/13/17 05:50 09/13/17 05:50 PT 26.8 SECONDS (9.4-12.5) H 09/13/17 05:50 INR 2.29 (0.93-1.08) H 09/13/17 05:50 APTT 46.1 Seconds (25.1-36.5) H 09/13/17 05:50 - Constitutional Appears: Chronically Ill, Other (still tachypneic) - Head Exam Head Exam: NORMAL INSPECTION - ENT Exam ENT Exam: Mucous Membranes Moist - Neck Exam Neck Exam: absent: Meningismus - Respiratory Exam Respiratory Exam: Decreased Breath Sounds - Cardiovascular Exam Cardiovascular Exam: +S1, +S2 - GI/Abdominal Exam GI & Abdominal Exam: Soft. absent: Tenderness Assessment and Plan - Assessment and Plan (Free Text) Plan: Assessment SIRS (tachypnea and tachycardia), consider due to acute on chronic CHF with no evidence of sepsis osteoporosis sick sinus syndrome S/P AICD and pacemaker placement 2017 S/P hysterectomy S/P cholecystectomy obesity with BMI 33 atrial fibrillation on anticoagulation Plan gave a dose of IV Vancomycin and on Cefepime and Zithromax day 2; blood cx are negative, PCT is <0.05; reviewed CXR - will also await CT chest - will d/c antibiotics and observe reviewed Pulmonary evaluation - unlikely pneumonia will continue to monitor clinically
--- NOTE | 2017-09-14 10:55 | CP.CCUPN ---
<Kee Dillon - Last Filed: 09/14/17 11:33> CCU Subjective - Physician Review Events Since Last Encounter (Free Text): 09/14/17 10:39 Patient was given Lasix 40 this morning at 6 a.m. causing her to become hypotensive. Subjective (Free Text): 09/13/17 11:11 Patient seen and examined at bedside in no acute distress. States she currently has no trouble breathing, and wants to sit up in her chair. Patient states cough is improving. Patient denies nausea, vomiting, diarrhea, chest pain, shortness of breath, body aches. 09/14/17 10:41 Patient seen and examined at bedside in no acute distress. Patient is seen on BiPAP 14/11, 35% oxygen. Patient currently in and out of sleep, daughter states this is patient's baseline. Denies chest pain, nausea, vomiting, diarrhea, Critical Care Time Spent (in minutes): 40 CCU Objective - Vital Signs / Intake & Output Vital Signs (Last 4 hours): Vital Signs Temp Pulse Resp BP Pulse Ox 09/14/17 10:00 70 31 H 115/50 L 96 09/14/17 09:50 70 97 09/14/17 09:40 75 38 H 97 09/14/17 09:30 71 36 H 96 09/14/17 09:20 73 36 H 95 09/14/17 09:15 71 28 H 110/60 95 09/14/17 09:10 72 32 H 95 09/14/17 09:00 70 34 H 109/57 L 96 09/14/17 08:50 70 34 H 96 09/14/17 08:45 71 34 H 132/56 L 95 09/14/17 08:40 70 30 H 97 09/14/17 08:30 70 34 H 107/67 99 09/14/17 08:20 74 27 H 96 09/14/17 08:15 71 27 H 106/58 L 99 09/14/17 08:10 74 28 H 99 09/14/17 08:00 97.4 F L 73 28 H 107/55 L 98 09/14/17 07:50 70 26 H 98 09/14/17 07:45 73 25 H 90/44 L 98 09/14/17 07:40 73 32 H 96 09/14/17 07:39 73 29 H 97/43 L 98 09/14/17 07:30 70 28 H 82/38 L 97 09/14/17 07:20 73 28 H 92/39 L 96 09/14/17 07:13 71 29 H 76/44 L 98 09/14/17 07:10 71 28 H 95 09/14/17 07:08 70 31 H 66/32 L 95 09/14/17 07:00 72 72/29 L 09/14/17 06:59 70 28 H 97 09/14/17 06:50 72 28 H 96 09/14/17 06:40 70 26 H 98 Intake and Output (Last 8hrs): Intake & Output 09/13/17 09/14/17 09/14/17 22:59 06:59 14:59 Intake Total 1090 400 Output Total 1050 1025 Balance 40 -625 Intake: IV 850 200 Right Antecubital 850 200 Oral 240 200 Output: Urine 1050 1025 Urethral ([place]aldon[place]) 1050 1025 Other: # Bowel Movements 0 - Physical Exam Head: Positive for: Atraumatic, Normocephalic Pupils: Positive for: PERRL Extroacular Muscles: Positive for: EOMI Mouth: Positive for: Moist Mucous Membranes Pharnyx: Negative for: ERYTHEMA Neck: Positive for: JVD. Negative for: Meningeal Signs, MIDLINE TENDERNESS Respiratory/Chest: Positive for: Wheezes, Rales (diffuse rales ). Negative for : Clear to Auscultation, Retracting Cardiovascular: Positive for: Regular Rate and Rhythm, Murmurs Abdomen: Negative for: Tenderness, Peritoneal Signs, Rebound, Guarding Rectal: Negative for: Gross Blood Back: Negative for: CVA Tenderness Upper Extremity: Negative for: Cyanosis Lower Extremity: Positive for: Edema, NORMAL PULSES, Swelling, Neurovascularly Intact. Negative for: CALF TENDERNESS, Tenderness Neurological: Positive for: GCS=15, Speech Normal, Normal Sensory Function Psychiatric: Positive for: Alert, Normal Insight, Normal Concentration - Medications Active Medications: Active Medications Generic Name Dose Route Start Last Admin Trade Name Freq PRN Reason Stop Dose Admin Albuterol/Ipratropium 3 ml 09/12/17 20:35 09/14/17 02:42 Duoneb 3 Mg/0.5 Mg (3 Ml) Ud IH 3 ml Q2H PRN Administration Shortness of Breath Albuterol/Ipratropium 3 ml 09/14/17 08:00 09/14/17 07:59 Duoneb 3 Mg/0.5 Mg (3 Ml) Ud IH 3 ml [id number] JOAO Administration Atorvastatin Calcium 10 mg 09/13/17 10:00 09/14/17 09:20 Lipitor PO 10 mg DAILY JOAO Administration Budesonide 0.5 mg 09/13/17 20:00 09/14/17 07:59 Pulmicort Respules IH 0.5 mg [id number] JOAO Administration Furosemide 40 mg 09/12/17 22:00 09/12/17 22:15 Lasix IVP Not Given Q12 JOAO Methylprednisolone 40 mg 09/14/17 10:00 09/14/17 09:19 Solu-Medrol IVP 40 mg Q12 JOAO Administration Pantoprazole Sodium 40 mg 09/14/17 07:30 09/14/17 08:33 Protonix Ec Tab PO Not Given ACB JOAO Warfarin Sodium 2 mg 09/13/17 18:00 09/13/17 18:13 Coumadin PO 2 mg 1800 JOAO Administration Protocol - Patient Studies Lab Studies: Lab Studies 09/14/17 09/14/17 09/14/17 Range/Units 06:10 06:10 06:10 WBC 8.1 (4.5-11.0) 10^3/ul RBC 4.18 (3.5-6.1) 10^6/uL Hgb 12.1 (12.0-16.0) g/dL Hct 38.4 (36.0-48.0) % MCV 91.9 (80.0-105.0) fl MCH 28.9 (25.0-35.0) pg MCHC 31.5 (31.0-37.0) g/dl RDW 15.3 H (11.5-14.5) % Plt Count 210 (120.0-450.0) 10^3/uL MPV 11.5 H (7.0-11.0) fl Gran % 79.3 H (50.0-68.0) % Lymph % (Auto) 12.6 L (22.0-35.0) % [place] % (Auto) 7.9 H (1.0-6.0) % Eos % (Auto) 0.0 L (1.5-5.0) % Baso % (Auto) 0.2 (0.0-3.0) % Gran # 6.39 (1.4-6.5) Lymph # (Auto) 1.0 L (1.2-3.4) [place] # (Auto) 0.6 (0.1-0.6) Eos # (Auto) 0.0 (0.0-0.7) Baso # (Auto) 0.02 (0.0-2.0) K/mm3 PT 33.2 H (9.4-12.5) SECONDS INR 2.83 H (0.93-1.08) pCO2 (35-45) mm/Hg pO2 (80-100) mm/Hg HCO3 (21-28) mmol/L ABG pH (7.35-7.45) ABG Total CO2 (22-28) mmol.L ABG O2 Saturation (95-98) % ABG O2 Content (15-23) ML/dl ABG Base Excess (-2.0-3.0) mmol/L ABG Hemoglobin (11.7-17.4) g/dL ABG Carboxyhemoglobin (0.5-1.5) % POC ABG HHb (Measured) (0-5) % ABG Methemoglobin (0.0-3.0) % ABG O2 Capacity (16-24) mL/dl Hgb O2 Saturation (95.0-98.0) % FiO2 % Sodium 139 (132-148) mmol/L Potassium 4.8 (3.6-5.0) mmol/L Chloride 92 L (98-107) mmol/L Carbon Dioxide 34 H (21-33) mmol/L Anion Gap 17 (10-20) BUN 32 H (7-21) mg/dL Creatinine 1.0 (0.7-1.2) mg/dl Est GFR ( Amer) > 60 Est GFR (Non-Af Amer) 53 Random Glucose 140 H (70-110) mg/dL Calcium 9.5 (8.4-10.5) mg/dL Phosphorus 4.4 (2.5-4.5) mg/dL Magnesium 1.7 (1.7-2.2) mg/dL Total Bilirubin 0.9 (0.2-1.3) mg/dL AST 45 H (14-36) U/L ALT 31 (7-56) U/L Alkaline Phosphatase 111 (38-126) U/L Total Protein 7.1 (5.8-8.3) g/dL Albumin 3.7 (3.0-4.8) g/dL Globulin 3.4 gm/dL Albumin/Globulin Ratio 1.1 (1.1-1.8) 09/14/17 09/13/17 Range/Units 05:32 17:00 WBC (4.5-11.0) 10^3/ul RBC (3.5-6.1) 10^6/uL Hgb (12.0-16.0) g/dL Hct (36.0-48.0) % MCV (80.0-105.0) fl MCH (25.0-35.0) pg MCHC (31.0-37.0) g/dl RDW (11.5-14.5) % Plt Count (120.0-450.0) 10^3/uL MPV (7.0-11.0) fl Gran % (50.0-68.0) % Lymph % (Auto) (22.0-35.0) % [place] % (Auto) (1.0-6.0) % Eos % (Auto) (1.5-5.0) % Baso % (Auto) (0.0-3.0) % Gran # (1.4-6.5) Lymph # (Auto) (1.2-3.4) [place] # (Auto) (0.1-0.6) Eos # (Auto) (0.0-0.7) Baso # (Auto) (0.0-2.0) K/mm3 PT (9.4-12.5) SECONDS INR (0.93-1.08) pCO2 52 H 54 H (35-45) mm/Hg pO2 78.0 L 66.0 L (80-100) mm/Hg HCO3 33.7 H 30.5 H (21-28) mmol/L ABG pH 7.42 7.36 (7.35-7.45) ABG Total CO2 35.3 H 32.2 H (22-28) mmol.L ABG O2 Saturation 97.8 97.1 (95-98) % ABG O2 Content 15.6 16.0 (15-23) ML/dl ABG Base Excess 7.9 H 3.9 H (-2.0-3.0) mmol/L ABG Hemoglobin 11.7 12.1 (11.7-17.4) g/dL ABG Carboxyhemoglobin 2.3 H 2.4 H (0.5-1.5) % POC ABG HHb (Measured) 2.1 2.8 (0-5) % ABG Methemoglobin 1.1 1.0 (0.0-3.0) % ABG O2 Capacity 16.0 16.5 (16-24) mL/dl Hgb O2 Saturation 94.5 L 93.8 L (95.0-98.0) % FiO2 32.0 32.0 % Sodium (132-148) mmol/L Potassium (3.6-5.0) mmol/L Chloride (98-107) mmol/L Carbon Dioxide (21-33) mmol/L Anion Gap (10-20) BUN (7-21) mg/dL Creatinine (0.7-1.2) mg/dl Est GFR ( Amer) Est GFR (Non-Af Amer) Random Glucose (70-110) mg/dL Calcium (8.4-10.5) mg/dL Phosphorus (2.5-4.5) mg/dL Magnesium (1.7-2.2) mg/dL Total Bilirubin (0.2-1.3) mg/dL AST (14-36) U/L ALT (7-56) U/L Alkaline Phosphatase (38-126) U/L Total Protein (5.8-8.3) g/dL Albumin (3.0-4.8) g/dL Globulin gm/dL Albumin/Globulin Ratio (1.1-1.8) Laboratory Results - last 24 hr 09/13/17 09/14/17 09/14/17 17:00 05:32 06:10 WBC 8.1 RBC 4.18 Hgb 12.1 Hct 38.4 MCV 91.9 MCH 28.9 MCHC 31.5 RDW 15.3 H Plt Count 210 MPV 11.5 H Gran % 79.3 H Lymph % (Auto) 12.6 L [place] % (Auto) 7.9 H Eos % (Auto) 0.0 L Baso % (Auto) 0.2 Gran # 6.39 Lymph # (Auto) 1.0 L [place] # (Auto) 0.6 Eos # (Auto) 0.0 Baso # (Auto) 0.02 PT INR pCO2 54 H 52 H pO2 66.0 L 78.0 L HCO3 30.5 H 33.7 H ABG pH 7.36 7.42 ABG Total CO2 32.2 H 35.3 H ABG O2 Saturation 97.1 97.8 ABG O2 Content 16.0 15.6 ABG Base Excess 3.9 H 7.9 H ABG Hemoglobin 12.1 11.7 ABG Carboxyhemoglobin 2.4 H 2.3 H POC ABG HHb (Measured) 2.8 2.1 ABG Methemoglobin 1.0 1.1 ABG O2 Capacity 16.5 16.0 Hgb O2 Saturation 93.8 L 94.5 L FiO2 32.0 32.0 Sodium Potassium Chloride Carbon Dioxide Anion Gap BUN Creatinine Est GFR ( Amer) Est GFR (Non-Af Amer) Random Glucose Calcium Phosphorus Magnesium Total Bilirubin AST ALT Alkaline Phosphatase Total Protein Albumin Globulin Albumin/Globulin Ratio 09/14/17 09/14/17 06:10 06:10 WBC RBC Hgb Hct MCV MCH MCHC RDW Plt Count MPV Gran % Lymph % (Auto) [place] % (Auto) Eos % (Auto) Baso % (Auto) Gran # Lymph # (Auto) [place] # (Auto) Eos # (Auto) Baso # (Auto) PT 33.2 H INR 2.83 H pCO2 pO2 HCO3 ABG pH ABG Total CO2 ABG O2 Saturation ABG O2 Content ABG Base Excess ABG Hemoglobin ABG Carboxyhemoglobin POC ABG HHb (Measured) ABG Methemoglobin ABG O2 Capacity Hgb O2 Saturation FiO2 Sodium 139 Potassium 4.8 Chloride 92 L Carbon Dioxide 34 H Anion Gap 17 BUN 32 H Creatinine 1.0 Est GFR ( Amer) > 60 Est GFR (Non-Af Amer) 53 Random Glucose 140 H Calcium 9.5 Phosphorus 4.4 Magnesium 1.7 Total Bilirubin 0.9 AST 45 H ALT 31 Alkaline Phosphatase 111 Total Protein 7.1 Albumin 3.7 Globulin 3.4 Albumin/Globulin Ratio 1.1 Fingerstick Blood Sugar Results: 109 Review of Systems - Constitutional Constitutional: absent: Fever, Chills, Sweats Critical Care Progress Note - Nutrition Nutrition: Nutrition Category Date Time Status Heart Healthy Diet [DIET] Diets 09/13/17 Breakfast Ordered Assessment/Plan - Assessment and Plan (Free Text) Assessment: 82 year old female with a past medical history of atrial fibrillation on coumadin, 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 Patient was found to be hypotensive patient was admitted to ICU where dopamine drip was started. Dopamine drip was stopped and patient was normotensive. Patient currently being treated for CHF exacerbation with superimposed bronchitis. Plan: Neurologic AAO x3 responsive to questions patient is in and out of sleep however this is patient's baseline continue to monitor Cardiovascular -CHF exacerbation:Patient is in a state of fluid overload, Patient is sensitive to lasix 40mg, will monitor patient's CHF status and administer from now on Lasix 20 mg. -Episodes of hypotension:Maintain patient normotensive; dopamine drip has been discontinued. Hold Zestril and Toprol XL. -Atrial fibrillation: patient will continue with coumadin. Monitor INR. Current INR 2.83 -Urine input 1490, output 2075. Continue to monitor I&O Pulmonary -Patient still has diffuse crackles; pulmonology consulted. Pulmicort and Solu - medrol have been added to medicine regimen -Continue with Duoneb treatments -Continue with BiPAP -Maintain O2 sat >92% and continue with supplemental o2 as needed Infectious disease -Patient does not have evidence of pneumonia; procal is negative, afebrile, no leukocytosis, negative cultures. Antibiotics have been discontinued -Continue to monitor WBC and maintain normothermia Gastrointestinal -Continue to monitor liver enzymes, slight elevation however improved from past admission -Heart healthy diet started Endocrine -maintain normothermia and normotension <Yash Jarvis - Last Filed: 09/14/17 12:03> CCU Objective - Vital Signs / Intake & Output Vital Signs (Last 4 hours): Vital Signs Pulse Resp BP Pulse Ox 09/14/17 11:00 72 36 H 117/54 L 98 09/14/17 10:50 70 33 H 96 09/14/17 10:40 70 35 H 95 09/14/17 10:30 71 36 H 97 04/13/18 10:20 71 37 H 95 09/14/17 10:10 71 39 H 95 09/14/17 10:00 70 31 H 115/50 L 96 09/14/17 09:50 70 97 09/14/17 09:40 75 38 H 97 09/14/17 09:30 71 36 H 96 09/14/17 09:20 73 36 H 95 09/14/17 09:15 71 28 H 110/60 95 09/14/17 09:10 72 32 H 95 09/14/17 09:00 70 34 H 109/57 L 96 09/14/17 08:50 70 34 H 96 09/14/17 08:45 71 34 H 132/56 L 95 09/14/17 08:40 70 30 H 97 09/14/17 08:30 70 34 H 107/67 99 09/14/17 08:20 74 27 H 96 09/14/17 08:15 71 27 H 106/58 L 99 09/14/17 08:10 74 28 H 99 Intake and Output (Last 8hrs): Intake & Output 09/13/17 09/14/17 09/14/17 22:59 06:59 14:59 Intake Total 1090 400 Output Total 1050 1025 Balance 40 -625 Intake: IV 850 200 Right Antecubital 850 200 Oral 240 200 Output: Urine 1050 1025 Urethral ([place]) 1050 1025 Other: # Bowel Movements 0 - Medications Active Medications: Active Medications Generic Name Dose Route Start Last Admin Trade Name Freq PRN Reason Stop Dose Admin Albuterol/Ipratropium 3 ml 09/12/17 20:35 09/14/17 02:42 Duoneb 3 Mg/0.5 Mg (3 Ml) Ud IH 3 ml Q2H PRN Administration Shortness of Breath Albuterol/Ipratropium 3 ml 09/14/17 08:00 09/14/17 07:59 Duoneb 3 Mg/0.5 Mg (3 Ml) Ud IH 3 ml [id number] JOAO Administration Atorvastatin Calcium 10 mg 09/13/17 10:00 09/14/17 09:20 Lipitor PO 10 mg DAILY JOAO Administration Budesonide 0.5 mg 09/13/17 20:00 09/14/17 07:59 Pulmicort Respules IH 0.5 mg [id number] JOAO Administration Furosemide 40 mg 09/12/17 22:00 09/12/17 22:15 Lasix IVP Not Given Q12 JOAO Methylprednisolone 40 mg 09/14/17 10:00 09/14/17 09:19 Solu-Medrol IVP 40 mg Q12 JOAO Administration Pantoprazole Sodium 40 mg 09/14/17 07:30 09/14/17 08:33 Protonix Ec Tab PO Not Given ACB JOAO Warfarin Sodium 2 mg 09/13/17 18:00 09/13/17 18:13 Coumadin PO 2 mg 1800 JOAO Administration Protocol - Patient Studies Lab Studies: Microbiology Studies 09/13/17 06:33 Urine Culture - Final Urine No Growth (<1,000 CFU/ML) Lab Studies 09/14/17 09/14/17 09/14/17 Range/Units 06:10 06:10 06:10 WBC 8.1 (4.5-11.0) 10^3/ul RBC 4.18 (3.5-6.1) 10^6/uL Hgb 12.1 (12.0-16.0) g/dL Hct 38.4 (36.0-48.0) % MCV 91.9 (80.0-105.0) fl MCH 28.9 (25.0-35.0) pg MCHC 31.5 (31.0-37.0) g/dl RDW 15.3 H (11.5-14.5) % Plt Count 210 (120.0-450.0) 10^3/uL MPV 11.5 H (7.0-11.0) fl Gran % 79.3 H (50.0-68.0) % Lymph % (Auto) 12.6 L (22.0-35.0) % [place] % (Auto) 7.9 H (1.0-6.0) % Eos % (Auto) 0.0 L (1.5-5.0) % Baso % (Auto) 0.2 (0.0-3.0) % Gran # 6.39 (1.4-6.5) Lymph # (Auto) 1.0 L (1.2-3.4) [place] # (Auto) 0.6 (0.1-0.6) Eos # (Auto) 0.0 (0.0-0.7) Baso # (Auto) 0.02 (0.0-2.0) K/mm3 PT 33.2 H (9.4-12.5) SECONDS INR 2.83 H (0.93-1.08) pCO2 (35-45) mm/Hg pO2 (80-100) mm/Hg HCO3 (21-28) mmol/L ABG pH (7.35-7.45) ABG Total CO2 (22-28) mmol.L ABG O2 Saturation (95-98) % ABG O2 Content (15-23) ML/dl ABG Base Excess (-2.0-3.0) mmol/L ABG Hemoglobin (11.7-17.4) g/dL ABG Carboxyhemoglobin (0.5-1.5) % POC ABG HHb (Measured) (0-5) % ABG Methemoglobin (0.0-3.0) % ABG O2 Capacity (16-24) mL/dl Hgb O2 Saturation (95.0-98.0) % FiO2 % Sodium 139 (132-148) mmol/L Potassium 4.8 (3.6-5.0) mmol/L Chloride 92 L (98-107) mmol/L Carbon Dioxide 34 H (21-33) mmol/L Anion Gap 17 (10-20) BUN 32 H (7-21) mg/dL Creatinine 1.0 (0.7-1.2) mg/dl Est GFR ( Amer) > 60 Est GFR (Non-Af Amer) 53 Random Glucose 140 H (70-110) mg/dL Calcium 9.5 (8.4-10.5) mg/dL Phosphorus 4.4 (2.5-4.5) mg/dL Magnesium 1.7 (1.7-2.2) mg/dL Total Bilirubin 0.9 (0.2-1.3) mg/dL AST 45 H (14-36) U/L ALT 31 (7-56) U/L Alkaline Phosphatase 111 (38-126) U/L Total Protein 7.1 (5.8-8.3) g/dL Albumin 3.7 (3.0-4.8) g/dL Globulin 3.4 gm/dL Albumin/Globulin Ratio 1.1 (1.1-1.8) 09/14/17 09/13/17 Range/Units 05:32 17:00 WBC (4.5-11.0) 10^3/ul RBC (3.5-6.1) 10^6/uL Hgb (12.0-16.0) g/dL Hct (36.0-48.0) % MCV (80.0-105.0) fl MCH (25.0-35.0) pg MCHC (31.0-37.0) g/dl RDW (11.5-14.5) % Plt Count (120.0-450.0) 10^3/uL MPV (7.0-11.0) fl Gran % (50.0-68.0) % Lymph % (Auto) (22.0-35.0) % [place] % (Auto) (1.0-6.0) % Eos % (Auto) (1.5-5.0) % Baso % (Auto) (0.0-3.0) % Gran # (1.4-6.5) Lymph # (Auto) (1.2-3.4) [place] # (Auto) (0.1-0.6) Eos # (Auto) (0.0-0.7) Baso # (Auto) (0.0-2.0) K/mm3 PT (9.4-12.5) SECONDS INR (0.93-1.08) pCO2 52 H 54 H (35-45) mm/Hg pO2 78.0 L 66.0 L (80-100) mm/Hg HCO3 33.7 H 30.5 H (21-28) mmol/L ABG pH 7.42 7.36 (7.35-7.45) ABG Total CO2 35.3 H 32.2 H (22-28) mmol.L ABG O2 Saturation 97.8 97.1 (95-98) % ABG O2 Content 15.6 16.0 (15-23) ML/dl ABG Base Excess 7.9 H 3.9 H (-2.0-3.0) mmol/L ABG Hemoglobin 11.7 12.1 (11.7-17.4) g/dL ABG Carboxyhemoglobin 2.3 H 2.4 H (0.5-1.5) % POC ABG HHb (Measured) 2.1 2.8 (0-5) % ABG Methemoglobin 1.1 1.0 (0.0-3.0) % ABG O2 Capacity 16.0 16.5 (16-24) mL/dl Hgb O2 Saturation 94.5 L 93.8 L (95.0-98.0) % FiO2 32.0 32.0 % Sodium (132-148) mmol/L Potassium (3.6-5.0) mmol/L Chloride (98-107) mmol/L Carbon Dioxide (21-33) mmol/L Anion Gap (10-20) BUN (7-21) mg/dL Creatinine (0.7-1.2) mg/dl Est GFR ( Amer) Est GFR (Non-Af Amer) Random Glucose (70-110) mg/dL Calcium (8.4-10.5) mg/dL Phosphorus (2.5-4.5) mg/dL Magnesium (1.7-2.2) mg/dL Total Bilirubin (0.2-1.3) mg/dL AST (14-36) U/L ALT (7-56) U/L Alkaline Phosphatase (38-126) U/L Total Protein (5.8-8.3) g/dL Albumin (3.0-4.8) g/dL Globulin gm/dL Albumin/Globulin Ratio (1.1-1.8) Laboratory Results - last 24 hr 09/13/17 09/14/17 09/14/17 17:00 05:32 06:10 WBC 8.1 RBC 4.18 Hgb 12.1 Hct 38.4 MCV 91.9 MCH 28.9 MCHC 31.5 RDW 15.3 H Plt Count 210 MPV 11.5 H Gran % 79.3 H Lymph % (Auto) 12.6 L [place] % (Auto) 7.9 H Eos % (Auto) 0.0 L Baso % (Auto) 0.2 Gran # 6.39 Lymph # (Auto) 1.0 L [place] # (Auto) 0.6 Eos # (Auto) 0.0 Baso # (Auto) 0.02 PT INR pCO2 54 H 52 H pO2 66.0 L 78.0 L HCO3 30.5 H 33.7 H ABG pH 7.36 7.42 ABG Total CO2 32.2 H 35.3 H ABG O2 Saturation 97.1 97.8 ABG O2 Content 16.0 15.6 ABG Base Excess 3.9 H 7.9 H ABG Hemoglobin 12.1 11.7 ABG Carboxyhemoglobin 2.4 H 2.3 H POC ABG HHb (Measured) 2.8 2.1 ABG Methemoglobin 1.0 1.1 ABG O2 Capacity 16.5 16.0 Hgb O2 Saturation 93.8 L 94.5 L FiO2 32.0 32.0 Sodium Potassium Chloride Carbon Dioxide Anion Gap BUN Creatinine Est GFR ( Amer) Est GFR (Non-Af Amer) Random Glucose Calcium Phosphorus Magnesium Total Bilirubin AST ALT Alkaline Phosphatase Total Protein Albumin Globulin Albumin/Globulin Ratio 09/14/17 09/14/17 06:10 06:10 WBC RBC Hgb Hct MCV MCH MCHC RDW Plt Count MPV Gran % Lymph % (Auto) [place] % (Auto) Eos % (Auto) Baso % (Auto) Gran # Lymph # (Auto) [place] # (Auto) Eos # (Auto) Baso # (Auto) PT 33.2 H INR 2.83 H pCO2 pO2 HCO3 ABG pH ABG Total CO2 ABG O2 Saturation ABG O2 Content ABG Base Excess ABG Hemoglobin ABG Carboxyhemoglobin POC ABG HHb (Measured) ABG Methemoglobin ABG O2 Capacity Hgb O2 Saturation FiO2 Sodium 139 Potassium 4.8 Chloride 92 L Carbon Dioxide 34 H Anion Gap 17 BUN 32 H Creatinine 1.0 Est GFR ( Amer) > 60 Est GFR (Non-Af Amer) 53 Random Glucose 140 H Calcium 9.5 Phosphorus 4.4 Magnesium 1.7 Total Bilirubin 0.9 AST 45 H ALT 31 Alkaline Phosphatase 111 Total Protein 7.1 Albumin 3.7 Globulin 3.4 Albumin/Globulin Ratio 1.1 Critical Care Progress Note - Nutrition Nutrition: Nutrition Category Date Time Status Heart Healthy Diet [DIET] Diets 09/13/17 Breakfast Ordered Attending/Attestation - Attestation I have personally seen and examined this patient.: Yes I have fully participated in the care of the patient.: Yes I have reviewed all pertinent clinical information: Yes Notes (Text): 09/14/17 12:02 The patient was seen and examined at the bedside. Patient care was discussed with resident Medical records, lab studies, and imaging were reviewed and management issues were discussed and formulated. Last 24H events reviewed. Agree with above treatment plans as outlined in ' note CCM f\u 30min
--- NOTE | 2017-09-14 11:23 | PN ---
DATE: SUBJECTIVE: The patient is confused. Patient is on BiPAP. OBJECTIVE: VITAL SIGNS: Temperature is 98.6, pulse is 74, blood pressure is 122/43, respirations in 30s, O2 saturation 97%. GENERAL: The patient is lying in bed, flat, comfortable. HEENT: No oral lesion. Anicteric sclerae. Moist mucosa. NECK: No JVD, adenopathy, or thyromegaly. CARDIOVASCULAR: S1 and S2, regular. No murmurs, rubs, or gallops. LUNGS: Clear to auscultation bilaterally. No wheeze, rales, or rhonchi. ABDOMEN: Bowel sounds are positive, soft, nontender and nondistended. EXTREMITIES: No cyanosis, clubbing or edema. LABORATORY DATA: White count is 7.5, hemoglobin 12.2, creatinine is 1.0. ASSESSMENT: 1. Hospital-acquired pneumonia. 2. Osteoporosis. 3. Status post pacemaker. 4. Congestive heart failure secondary to systolic dysfunction. 5. Atrial fibrillation. 6. Obesity with body mass index of 33. 7. Hypotension, improved. PLAN: The patient is currently in the ICU. She has had blood cultures that were negative x2. She is currently on Coumadin for anticoagulation. Her last INR was therapeutic at 2.29. The patient is on Lipitor for dyslipidemia. She is receiving Protonix. She was given IV antibiotics yesterday with vancomycin and patient is being followed by from Pulmonary. We will continue to follow closely. Jw Ruggiero MD
[2017-09-15] MEDS: Albuterol-Ipratrop 3 mg / 0.5 (3 ml) UD IH SCH ×4 (01:59→20:10)
[2017-09-15 06:10] LABS: BASO # 0.02 K/mm3 (0.0-2.0); BASO % 0.3 % (0.0-3.0); GRAN # 4.91 (1.4-6.5); GRAN % 85.4 % (50.0-68.0); HEMOGLOBIN 11.8 g/dL (12.0-16.0); LYMPH # 0.6 (1.2-3.4); LYMPH % 10.3 % (22.0-35.0); MEAN CELL VOLUME 90.1 fl (80.0-105.0); MEAN CORPUSCULAR HEMOGLOBIN 29.2 pg (25.0-35.0); MEAN CORPUSCULAR HGB CONC 32.4 g/dl (31.0-37.0); MEAN PLATELET VOLUME 10.8 fl (7.0-11.0); MONO # 0.2 (0.1-0.6); RBC 4.04 10^6/uL (3.5-6.1); RED CELL DISTRIBUTION WIDTH 14.9 % (11.5-14.5); WHITE BLOOD COUNT 5.8 10^3/ul (4.5-11.0)
[2017-09-15 06:11] LABS: ALB/GLOB RATIO 1.1 (1.1-1.8); ALBUMIN 3.8 g/dL (3.0-4.8); ALT/SGPT 30 U/L (7-56); AST/SGOT 43 U/L (14-36); BLOOD UREA NITROGEN 38 mg/dL (7-21); CALCIUM 8.8 mg/dL (8.4-10.5); GFR AFRICAN-AMERICAN > 60; GFR NON-AFRICAN AMERICAN 53
[2017-09-15 06:18] LABS: INR 3.72 (0.93-1.08)
[2017-09-15 06:34] LABS: ARTERIAL BLOOD GAS HCO3 35.7 mmol/L (21-28); ARTERIAL BLOOD GAS HEMOGLOBIN 11.6 g/dL (11.7-17.4); ARTERIAL BLOOD GAS O2 CONTENT 15.7 ML/dl (15-23); ARTERIAL BLOOD GAS O2 SAT 98.4 % (95-98); ARTERIAL BLOOD GAS PCO2 49 mm/Hg (35-45); ARTERIAL BLOOD GAS PH 7.47 (7.35-7.45); ARTERIAL BLOOD GAS TCO2 37.2 mmol.L (22-28)
--- NOTE | 2017-09-15 07:52 | PN ---
DATE: 09/15/2017 SUBJECTIVE: The patient is seen earlier this morning in ICU 129, bed 6. The patient's daughter is at the bedside who states that the patient had an uneventful night last night. No fevers and chills. No chest pain. No abdominal pain. Mild shortness of breath is improved. OBJECTIVE VITAL SIGNS: On exam, temperature is 98, blood pressure is 119/68, respiratory rate of 21, heart rate of 71. HEENT: Examination is unremarkable. NECK: Supple. LUNGS: Have decreased breath sounds. HEART: Normal S1, S2. ABDOMEN: Soft, nontender. DATA: Laboratory examination reveals a white count of 5.8, hemoglobin of 11 and platelets of 184. Chemistry reveals a BUN of 38, creatinine of 1. LFTs are noted and the patient's procalcitonin is reported to be less than 0.05. Urinalysis is noted and serology is negative. Microbiology reveals the blood and urine cultures are negative. Review of orders reveal the patient to be off of antibiotics. The patient is on Solu-Medrol 40 mg IV every 12 hours and the patient had a chest x-ray this morning, which is reported to be as results are pending. ASSESSMENT AND PLAN: This is an 82-year-old female who was seen earlier this morning with SIRS, systemic inflammatory response syndrome with tachycardia, tachypnea secondary to [id number] congestive heart failure. The patient has acute systolic congestive heart failure on top of chronic congestive heart failure, currently off of antibiotics, afebrile, normal white count, no evidence of infection; however, the patient is at risk of developing infections in a patient with sick sinus syndrome, status post AICD and pacemaker placement 08/2017, history of hysterectomy, cholecystectomy, obesity, BMI of 33; atrial fibrillation, on anticoagulation and currently off antibiotics and we will discuss with Dr. Nobles. We will follow with you Pete Mcgarry MD
--- NOTE | 2017-09-15 07:55 | CP.PCM.PN ---
Subjective - Date & Time of Evaluation Date of Evaluation: 09/15/17 Time of Evaluation: 07:00 - Subjective Subjective: Stable in ICU. Bipap mask at night. No CP. She feels better. Was OOB to chair most of yesterday. V/S noted. AF/paced PE: Lungs: rhonchi, decreased BS right base Cor.: S1S2 Abd.: soft Ext.: mild edema Neuro.: alert I/O = 900/750 recorded Labs: INR = 3.72 K+= 4.0, Cr.+ 1.0 BC X2 NG at 48 hrs. Echo: Preserved LV fx., mild , mild/mod MR, mod TR and mod/sev. PH. See full report. Objective - Vital Signs/Intake and Output Vital Signs (last 24 hours): Temp Pulse Resp BP Pulse Ox 98.3 F 74 21 119/68 98 09/14/17 12:19 09/15/17 05:10 09/15/17 05:10 09/15/17 05:00 09/15/17 05:10 - Medications Medications: Current Medications Albuterol/Ipratropium (Duoneb 3 Mg/0.5 Mg (3 Ml) Ud) 3 ml IH Q2H PRN PRN Reason: Shortness of Breath Last Admin: 09/14/17 02:42 Dose: 3 ml Albuterol/Ipratropium (Duoneb 3 Mg/0.5 Mg (3 Ml) Ud) 3 ml IH [id number] [facility] Last Admin: 09/15/17 01:59 Dose: 3 ml Atorvastatin Calcium (Lipitor) 10 mg PO DAILY [facility] Last Admin: 09/14/17 09:20 Dose: 10 mg Budesonide (Pulmicort Respules) 0.5 mg IH [id number] [facility] Last Admin: 09/14/17 20:56 Dose: 0.5 mg Furosemide (Lasix) 20 mg IVP Q12 [facility] Last Admin: 09/14/17 22:39 Dose: 20 mg Methylprednisolone (Solu-Medrol) 40 mg IVP Q12 [facility] Last Admin: 09/14/17 22:40 Dose: 40 mg Pantoprazole Sodium (Protonix Ec Tab) 40 mg PO ACB [facility] Last Admin: 09/14/17 08:33 Dose: Not Given Warfarin Sodium (Coumadin) 2 mg PO 1800 JOAO PRN Reason: Protocol Last Admin: 09/13/17 18:13 Dose: 2 mg - Labs Labs: 09/15/17 05:30 09/15/17 05:30 PT 44.0 SECONDS (9.4-12.5) H 09/15/17 05:30 INR 3.72 (0.93-1.08) H* 09/15/17 05:30 APTT 46.1 Seconds (25.1-36.5) H 09/13/17 05:50 Assessment and Plan - Assessment and Plan (Free Text) Assessment: Dyspnea/Cough Infiltrate/Effusion right lung base, R/O pneumonia, possible aspiration CHF, diastolic Hypotension Bronchitis A. Flutter with slow VR/ Episode VT/ICD implant, pocket hematoma S/P brief CPR with rib fx. HLD Osteoporosis Surgeries: GB, hysterectomy, hernia Plan: IV Lasix as BP permits > neg balance Pulm eval,tx. AB as pr ID Hold warfarin, monitor INRs daily Monitor: labs, INR's, I/O, sats., CXR, cults., etc. OOB to chair as lon.
[2017-09-15] MEDS: Budesonide 0.5 mg/2 ml Inhal Susp UD IH SCH ×2 (08:19→20:10)
[2017-09-15] MEDS: Pantoprazole 40 mg EC Tab PO SCH (08:56)
[2017-09-15] MEDS: MethylPREDNISolone 40 mg Vial IVP SCH ×2 (09:11→21:18)
--- NOTE | 2017-09-15 09:19 | RAD ---
HISTORY: f/u COMPARISON: 09/14/2017 FINDINGS: LUNGS: Ill-defined opacity at right base may reflect dependent pleural fluid. This is improved since the prior examination. PLEURA: Costophrenic angles are clear. There is no pneumothorax. Nevertheless, suspicion of a small right pleural effusion. CARDIOVASCULAR: ICD. Normal heart size. OSSEOUS STRUCTURES: No significant abnormalities. VISUALIZED UPPER ABDOMEN: Normal. OTHER FINDINGS: None. IMPRESSION: Possible small left pleural effusion. Improving opacity at right base likely due to dependent pleural fluid.
--- NOTE | 2017-09-15 11:18 | CP.CCUPN ---
<Stan Egan - Last Filed: 09/15/17 11:14> CCU Subjective - Physician Review Subjective (Free Text): Critical care progress note: Patient seen and examined at bedside. No acute distress. Patient is sitting on the chair comfortably. Denies any chest pain or sob. No other complaints. 12 point ROS performed and neg other than stated above. CCU Objective - Vital Signs / Intake & Output Vital Signs (Last 4 hours): Vital Signs Pulse Resp BP Pulse Ox 09/15/17 09:11 120/49 L 09/15/17 08:20 70 09/15/17 08:00 74 40 H 127/67 94 L 09/15/17 07:50 70 21 84 L 09/15/17 07:40 70 22 96 09/15/17 07:30 70 33 H 95 09/15/17 07:20 70 24 96 Intake and Output (Last 8hrs): Intake & Output 09/14/17 09/15/17 09/15/17 22:59 06:59 14:59 Intake Total 900 120 Output Total 750 425 Balance 150 -305 Weight 181 lb 3 oz Intake: IV 520 Right Antecubital 520 Oral 380 120 Output: Urine 750 425 Urethral ([place]) 750 425 Stool 0 Other: # Bowel Movements 1 - Physical Exam Head: Positive for: Atraumatic, Normocephalic Pupils: Positive for: PERRL Extroacular Muscles: Positive for: EOMI Mouth: Positive for: Moist Mucous Membranes Pharnyx: Negative for: ERYTHEMA Neck: Positive for: JVD. Negative for: Meningeal Signs, MIDLINE TENDERNESS Respiratory/Chest: Positive for: Wheezes, Rales (diffuse rales ). Negative for : Clear to Auscultation, Retracting Cardiovascular: Positive for: Regular Rate and Rhythm, Murmurs Abdomen: Negative for: Tenderness, Peritoneal Signs, Rebound, Guarding Rectal: Negative for: Gross Blood Back: Negative for: CVA Tenderness Upper Extremity: Negative for: Cyanosis Lower Extremity: Positive for: Edema, NORMAL PULSES, Swelling, Neurovascularly Intact. Negative for: CALF TENDERNESS, Tenderness Neurological: Positive for: GCS=15, Speech Normal, Normal Sensory Function Skin: Positive for: Diaphoretic Psychiatric: Positive for: Alert, Normal Insight, Normal Concentration - Medications Active Medications: Active Medications Generic Name Dose Route Start Last Admin Trade Name Freq PRN Reason Stop Dose Admin Albuterol/Ipratropium 3 ml 09/12/17 20:35 09/14/17 02:42 Duoneb 3 Mg/0.5 Mg (3 Ml) Ud IH 3 ml Q2H PRN Administration Shortness of Breath Albuterol/Ipratropium 3 ml 09/14/17 08:00 09/15/17 08:19 Duoneb 3 Mg/0.5 Mg (3 Ml) Ud IH 3 ml [id number] JARON Administration Atorvastatin Calcium 10 mg 09/13/17 10:00 09/15/17 09:11 Lipitor PO 10 mg DAILY JARON Administration Budesonide 0.5 mg 09/13/17 20:00 09/15/17 08:19 Pulmicort Respules IH 0.5 mg [id number] JARON Administration Furosemide 20 mg 09/14/17 22:00 09/15/17 09:11 Lasix IVP 20 mg Q12 JARON Administration Methylprednisolone 40 mg 09/14/17 10:00 09/15/17 09:11 Solu-Medrol IVP 40 mg Q12 JARON Administration Pantoprazole Sodium 40 mg 09/14/17 07:30 09/15/17 08:56 Protonix Ec Tab PO 40 mg ACB JARON Administration Warfarin Sodium 2 mg 09/13/17 18:00 09/13/17 18:13 Coumadin PO 2 mg 1800 JARON Administration Protocol - Patient Studies Lab Studies: Microbiology Studies 09/13/17 06:33 MRSA Culture (Admit) - Final Naris MRSA NOT DETECTED 09/13/17 06:33 Urine Culture - Final Urine No Growth (<1,000 CFU/ML) Lab Studies 09/15/17 09/15/17 09/15/17 Range/Units 06:00 05:30 05:30 WBC (4.5-11.0) 10^3/ul RBC (3.5-6.1) 10^6/uL Hgb (12.0-16.0) g/dL Hct (36.0-48.0) % MCV (80.0-105.0) fl MCH (25.0-35.0) pg MCHC (31.0-37.0) g/dl RDW (11.5-14.5) % Plt Count (120.0-450.0) 10^3/uL MPV (7.0-11.0) fl Gran % (50.0-68.0) % Lymph % (Auto) (22.0-35.0) % [place] % (Auto) (1.0-6.0) % Eos % (Auto) (1.5-5.0) % Baso % (Auto) (0.0-3.0) % Gran # (1.4-6.5) Lymph # (Auto) (1.2-3.4) [place] # (Auto) (0.1-0.6) Eos # (Auto) (0.0-0.7) Baso # (Auto) (0.0-2.0) K/mm3 PT 44.0 H (9.4-12.5) SECONDS INR 3.72 H* (0.93-1.08) pCO2 49 H (35-45) mm/Hg pO2 83.0 (80-100) mm/Hg HCO3 35.7 H (21-28) mmol/L ABG pH 7.47 H (7.35-7.45) ABG Total CO2 37.2 H (22-28) mmol.L ABG O2 Saturation 98.4 H (95-98) % ABG O2 Content 15.7 (15-23) ML/dl ABG Base Excess 10.6 H (-2.0-3.0) mmol/L ABG Hemoglobin 11.6 L (11.7-17.4) g/dL ABG Carboxyhemoglobin 1.9 H (0.5-1.5) % POC ABG HHb (Measured) 1.6 (0-5) % ABG Methemoglobin 0.9 (0.0-3.0) % ABG O2 Capacity 16.0 (16-24) mL/dl Hgb O2 Saturation 95.6 (95.0-98.0) % FiO2 35.0 % Sodium 138 (132-148) mmol/L Potassium 4.0 (3.6-5.0) mmol/L Chloride 92 L (98-107) mmol/L Carbon Dioxide 36 H (21-33) mmol/L Anion Gap 14 (10-20) BUN 38 H (7-21) mg/dL Creatinine 1.0 (0.7-1.2) mg/dl Est GFR ( Amer) > 60 Est GFR (Non-Af Amer) 53 Random Glucose 170 H (70-110) mg/dL Calcium 8.8 (8.4-10.5) mg/dL Phosphorus 3.7 (2.5-4.5) mg/dL Magnesium 1.7 (1.7-2.2) mg/dL Total Bilirubin 0.8 (0.2-1.3) mg/dL AST 43 H (14-36) U/L ALT 30 (7-56) U/L Alkaline Phosphatase 105 (38-126) U/L Total Protein 7.2 (5.8-8.3) g/dL Albumin 3.8 (3.0-4.8) g/dL Globulin 3.4 gm/dL Albumin/Globulin Ratio 1.1 (1.1-1.8) / Range/Units 05:30 WBC 5.8 D (4.5-11.0) 10^3/ul RBC 4.04 (3.5-6.1) 10^6/uL Hgb 11.8 L (12.0-16.0) g/dL Hct 36.4 (36.0-48.0) % MCV 90.1 (80.0-105.0) fl MCH 29.2 (25.0-35.0) pg MCHC 32.4 (31.0-37.0) g/dl RDW 14.9 H (11.5-14.5) % Plt Count 184 (120.0-450.0) 10^3/uL MPV 10.8 (7.0-11.0) fl Gran % 85.4 H (50.0-68.0) % Lymph % (Auto) 10.3 L (22.0-35.0) % [place] % (Auto) 4.0 (1.0-6.0) % Eos % (Auto) 0.0 L (1.5-5.0) % Baso % (Auto) 0.3 (0.0-3.0) % Gran # 4.91 (1.4-6.5) Lymph # (Auto) 0.6 L (1.2-3.4) [place] # (Auto) 0.2 (0.1-0.6) Eos # (Auto) 0.0 (0.0-0.7) Baso # (Auto) 0.02 (0.0-2.0) K/mm3 PT (9.4-12.5) SECONDS INR (0.93-1.08) pCO2 (35-45) mm/Hg pO2 (80-100) mm/Hg HCO3 (21-28) mmol/L ABG pH (7.35-7.45) ABG Total CO2 (22-28) mmol.L ABG O2 Saturation (95-98) % ABG O2 Content (15-23) ML/dl ABG Base Excess (-2.0-3.0) mmol/L ABG Hemoglobin (11.7-17.4) g/dL ABG Carboxyhemoglobin (0.5-1.5) % POC ABG HHb (Measured) (0-5) % ABG Methemoglobin (0.0-3.0) % ABG O2 Capacity (16-24) mL/dl Hgb O2 Saturation (95.0-98.0) % FiO2 % Sodium (132-148) mmol/L Potassium (3.6-5.0) mmol/L Chloride (98-107) mmol/L Carbon Dioxide (21-33) mmol/L Anion Gap (10-20) BUN (7-21) mg/dL Creatinine (0.7-1.2) mg/dl Est GFR ( Amer) Est GFR (Non-Af Amer) Random Glucose (70-110) mg/dL Calcium (8.4-10.5) mg/dL Phosphorus (2.5-4.5) mg/dL Magnesium (1.7-2.2) mg/dL Total Bilirubin (0.2-1.3) mg/dL AST (14-36) U/L ALT (7-56) U/L Alkaline Phosphatase (38-126) U/L Total Protein (5.8-8.3) g/dL Albumin (3.0-4.8) g/dL Globulin gm/dL Albumin/Globulin Ratio (1.1-1.8) Laboratory Results - last 24 hr 09/15/17 09/15/17 09/15/17 05:30 05:30 05:30 WBC 5.8 D RBC 4.04 Hgb 11.8 L Hct 36.4 MCV 90.1 MCH 29.2 MCHC 32.4 RDW 14.9 H Plt Count 184 MPV 10.8 Gran % 85.4 H Lymph % (Auto) 10.3 L [place] % (Auto) 4.0 Eos % (Auto) 0.0 L Baso % (Auto) 0.3 Gran # 4.91 Lymph # (Auto) 0.6 L [place] # (Auto) 0.2 Eos # (Auto) 0.0 Baso # (Auto) 0.02 PT 44.0 H INR 3.72 H* pCO2 pO2 HCO3 ABG pH ABG Total CO2 ABG O2 Saturation ABG O2 Content ABG Base Excess ABG Hemoglobin ABG Carboxyhemoglobin POC ABG HHb (Measured) ABG Methemoglobin ABG O2 Capacity Hgb O2 Saturation FiO2 Sodium 138 Potassium 4.0 Chloride 92 L Carbon Dioxide 36 H Anion Gap 14 BUN 38 H Creatinine 1.0 Est GFR ( Amer) > 60 Est GFR (Non-Af Amer) 53 Random Glucose 170 H Calcium 8.8 Phosphorus 3.7 Magnesium 1.7 Total Bilirubin 0.8 AST 43 H ALT 30 Alkaline Phosphatase 105 Total Protein 7.2 Albumin 3.8 Globulin 3.4 Albumin/Globulin Ratio 1.1 09/15/17 06:00 WBC RBC Hgb Hct MCV MCH MCHC RDW Plt Count MPV Gran % Lymph % (Auto) [place] % (Auto) Eos % (Auto) Baso % (Auto) Gran # Lymph # (Auto) [place] # (Auto) Eos # (Auto) Baso # (Auto) PT INR pCO2 49 H pO2 83.0 HCO3 35.7 H ABG pH 7.47 H ABG Total CO2 37.2 H ABG O2 Saturation 98.4 H ABG O2 Content 15.7 ABG Base Excess 10.6 H ABG Hemoglobin 11.6 L ABG Carboxyhemoglobin 1.9 H POC ABG HHb (Measured) 1.6 ABG Methemoglobin 0.9 ABG O2 Capacity 16.0 Hgb O2 Saturation 95.6 FiO2 35.0 Sodium Potassium Chloride Carbon Dioxide Anion Gap BUN Creatinine Est GFR ( Amer) Est GFR (Non-Af Amer) Random Glucose Calcium Phosphorus Magnesium Total Bilirubin AST ALT Alkaline Phosphatase Total Protein Albumin Globulin Albumin/Globulin Ratio Fingerstick Blood Sugar Results: 109 Review of Systems - Review of Systems All systems: reviewed and no additional remarkable complaints except (HPI) Critical Care Progress Note - Nutrition Nutrition: Nutrition Category Date Time Status Heart Healthy Diet [DIET] Diets 09/13/17 Breakfast Ordered Assessment/Plan - Assessment and Plan (Free Text) Assessment: 82 year old female with a past medical history of atrial fibrillation on coumadin, 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 Patient initially on Dopamine ggt for hypotension but currently off. Neuro: - Mildly lethargic - AAO x 3 Pulm: - Maintain SPO2 >92 - Cont Duoneb jaron and prn, pulmicort and solumedrol - F/u pulm recs CV: - Currently hemodynamically stable - Maintain map >65 - Cont lasix 20mg Q12 - Coumadin on Hold for supratherapeutic INR - Cardiology consulted for recs - Cont lipitor GI: - HHD - ppx Renal: - Replete electrolytes as needed - I and O - Avoid nephrotoxic drugs Endo: - maintain euglycemia ID: - Afebrile and no leukocytosis - Currently monitoring off of abx as per ID - F/u ID consult recs Heme: - monitor H/H Case and plan was reviewed and discussed with Dr Calhoun. <Mervin Calhoun - Last Filed: 09/15/17 13:11> CCU Objective - Vital Signs / Intake & Output Vital Signs (Last 4 hours): Vital Signs Pulse Resp BP Pulse Ox 09/15/17 11:11 73 09/15/17 11:00 69 21 95 09/15/17 10:00 70 24 94 L 09/15/17 09:11 120/49 L Intake and Output (Last 8hrs): Intake & Output 09/14/17 09/15/17 09/15/17 22:59 06:59 14:59 Intake Total 900 120 Output Total 750 425 Balance 150 -305 Weight 181 lb 3 oz Intake: IV 520 Right Antecubital 520 Oral 380 120 Output: Urine 750 425 Urethral ([place]) 750 425 Stool 0 Other: # Bowel Movements 1 - Medications Active Medications: Active Medications Generic Name Dose Route Start Last Admin Trade Name Freq PRN Reason Stop Dose Admin Albuterol/Ipratropium 3 ml 09/12/17 20:35 09/14/17 02:42 Duoneb 3 Mg/0.5 Mg (3 Ml) Ud IH 3 ml Q2H PRN Administration Shortness of Breath Albuterol/Ipratropium 3 ml 09/14/17 08:00 09/15/17 08:19 Duoneb 3 Mg/0.5 Mg (3 Ml) Ud IH 3 ml [id number] JARON Administration Atorvastatin Calcium 10 mg 09/13/17 10:00 09/15/17 09:11 Lipitor PO 10 mg DAILY JARON Administration Budesonide 0.5 mg 09/13/17 20:00 09/15/17 08:19 Pulmicort Respules IH 0.5 mg [id number] JARON Administration Furosemide 20 mg 09/14/17 22:00 09/15/17 09:11 Lasix IVP 20 mg Q12 JARON Administration Methylprednisolone 40 mg 09/14/17 10:00 09/15/17 09:11 Solu-Medrol IVP 40 mg Q12 JARON Administration Pantoprazole Sodium 40 mg 09/14/17 07:30 09/15/17 08:56 Protonix Ec Tab PO 40 mg ACB JARON Administration Warfarin Sodium 2 mg 09/13/17 18:00 09/13/17 18:13 Coumadin PO 2 mg 1800 JARON Administration Protocol - Patient Studies Lab Studies: Microbiology Studies 09/13/17 06:33 MRSA Culture (Admit) - Final Naris MRSA NOT DETECTED 09/13/17 06:33 Urine Culture - Final Urine No Growth (<1,000 CFU/ML) Lab Studies 09/15/17 09/15/17 09/15/17 Range/Units 06:00 05:30 05:30 WBC (4.5-11.0) 10^3/ul RBC (3.5-6.1) 10^6/uL Hgb (12.0-16.0) g/dL Hct (36.0-48.0) % MCV (80.0-105.0) fl MCH (25.0-35.0) pg MCHC (31.0-37.0) g/dl RDW (11.5-14.5) % Plt Count (120.0-450.0) 10^3/uL MPV (7.0-11.0) fl Gran % (50.0-68.0) % Lymph % (Auto) (22.0-35.0) % [place] % (Auto) (1.0-6.0) % Eos % (Auto) (1.5-5.0) % Baso % (Auto) (0.0-3.0) % Gran # (1.4-6.5) Lymph # (Auto) (1.2-3.4) [place] # (Auto) (0.1-0.6) Eos # (Auto) (0.0-0.7) Baso # (Auto) (0.0-2.0) K/mm3 PT 44.0 H (9.4-12.5) SECONDS INR 3.72 H* (0.93-1.08) pCO2 49 H (35-45) mm/Hg pO2 83.0 (80-100) mm/Hg HCO3 35.7 H (21-28) mmol/L ABG pH 7.47 H (7.35-7.45) ABG Total CO2 37.2 H (22-28) mmol.L ABG O2 Saturation 98.4 H (95-98) % ABG O2 Content 15.7 (15-23) ML/dl ABG Base Excess 10.6 H (-2.0-3.0) mmol/L ABG Hemoglobin 11.6 L (11.7-17.4) g/dL ABG Carboxyhemoglobin 1.9 H (0.5-1.5) % POC ABG HHb (Measured) 1.6 (0-5) % ABG Methemoglobin 0.9 (0.0-3.0) % ABG O2 Capacity 16.0 (16-24) mL/dl Hgb O2 Saturation 95.6 (95.0-98.0) % FiO2 35.0 % Sodium 138 (132-148) mmol/L Potassium 4.0 (3.6-5.0) mmol/L Chloride 92 L (98-107) mmol/L Carbon Dioxide 36 H (21-33) mmol/L Anion Gap 14 (10-20) BUN 38 H (7-21) mg/dL Creatinine 1.0 (0.7-1.2) mg/dl Est GFR ( Amer) > 60 Est GFR (Non-Af Amer) 53 Random Glucose 170 H (70-110) mg/dL Calcium 8.8 (8.4-10.5) mg/dL Phosphorus 3.7 (2.5-4.5) mg/dL Magnesium 1.7 (1.7-2.2) mg/dL Total Bilirubin 0.8 (0.2-1.3) mg/dL AST 43 H (14-36) U/L ALT 30 (7-56) U/L Alkaline Phosphatase 105 (38-126) U/L Total Protein 7.2 (5.8-8.3) g/dL Albumin 3.8 (3.0-4.8) g/dL Globulin 3.4 gm/dL Albumin/Globulin Ratio 1.1 (1.1-1.8) 09/15/17 Range/Units 05:30 WBC 5.8 D (4.5-11.0) 10^3/ul RBC 4.04 (3.5-6.1) 10^6/uL Hgb 11.8 L (12.0-16.0) g/dL Hct 36.4 (36.0-48.0) % MCV 90.1 (80.0-105.0) fl MCH 29.2 (25.0-35.0) pg MCHC 32.4 (31.0-37.0) g/dl RDW 14.9 H (11.5-14.5) % Plt Count 184 (120.0-450.0) 10^3/uL MPV 10.8 (7.0-11.0) fl Gran % 85.4 H (50.0-68.0) % Lymph % (Auto) 10.3 L (22.0-35.0) % [place] % (Auto) 4.0 (1.0-6.0) % Eos % (Auto) 0.0 L (1.5-5.0) % Baso % (Auto) 0.3 (0.0-3.0) % Gran # 4.91 (1.4-6.5) Lymph # (Auto) 0.6 L (1.2-3.4) [place] # (Auto) 0.2 (0.1-0.6) Eos # (Auto) 0.0 (0.0-0.7) Baso # (Auto) 0.02 (0.0-2.0) K/mm3 PT (9.4-12.5) SECONDS INR (0.93-1.08) pCO2 (35-45) mm/Hg pO2 (80-100) mm/Hg HCO3 (21-28) mmol/L ABG pH (7.35-7.45) ABG Total CO2 (22-28) mmol.L ABG O2 Saturation (95-98) % ABG O2 Content (15-23) ML/dl ABG Base Excess (-2.0-3.0) mmol/L ABG Hemoglobin (11.7-17.4) g/dL ABG Carboxyhemoglobin (0.5-1.5) % POC ABG HHb (Measured) (0-5) % ABG Methemoglobin (0.0-3.0) % ABG O2 Capacity (16-24) mL/dl Hgb O2 Saturation (95.0-98.0) % FiO2 % Sodium (132-148) mmol/L Potassium (3.6-5.0) mmol/L Chloride (98-107) mmol/L Carbon Dioxide (21-33) mmol/L Anion Gap (10-20) BUN (7-21) mg/dL Creatinine (0.7-1.2) mg/dl Est GFR ( Amer) Est GFR (Non-Af Amer) Random Glucose (70-110) mg/dL Calcium (8.4-10.5) mg/dL Phosphorus (2.5-4.5) mg/dL Magnesium (1.7-2.2) mg/dL Total Bilirubin (0.2-1.3) mg/dL AST (14-36) U/L ALT (7-56) U/L Alkaline Phosphatase (38-126) U/L Total Protein (5.8-8.3) g/dL Albumin (3.0-4.8) g/dL Globulin gm/dL Albumin/Globulin Ratio (1.1-1.8) Laboratory Results - last 24 hr 09/15/17 09/15/17 09/15/17 05:30 05:30 05:30 WBC 5.8 D RBC 4.04 Hgb 11.8 L Hct 36.4 MCV 90.1 MCH 29.2 MCHC 32.4 RDW 14.9 H Plt Count 184 MPV 10.8 Gran % 85.4 H Lymph % (Auto) 10.3 L [place] % (Auto) 4.0 Eos % (Auto) 0.0 L Baso % (Auto) 0.3 Gran # 4.91 Lymph # (Auto) 0.6 L [place] # (Auto) 0.2 Eos # (Auto) 0.0 Baso # (Auto) 0.02 PT 44.0 H INR 3.72 H* pCO2 pO2 HCO3 ABG pH ABG Total CO2 ABG O2 Saturation ABG O2 Content ABG Base Excess ABG Hemoglobin ABG Carboxyhemoglobin POC ABG HHb (Measured) ABG Methemoglobin ABG O2 Capacity Hgb O2 Saturation FiO2 Sodium 138 Potassium 4.0 Chloride 92 L Carbon Dioxide 36 H Anion Gap 14 BUN 38 H Creatinine 1.0 Est GFR ( Amer) > 60 Est GFR (Non-Af Amer) 53 Random Glucose 170 H Calcium 8.8 Phosphorus 3.7 Magnesium 1.7 Total Bilirubin 0.8 AST 43 H ALT 30 Alkaline Phosphatase 105 Total Protein 7.2 Albumin 3.8 Globulin 3.4 Albumin/Globulin Ratio 1.1 09/15/17 06:00 WBC RBC Hgb Hct MCV MCH MCHC RDW Plt Count MPV Gran % Lymph % (Auto) [place] % (Auto) Eos % (Auto) Baso % (Auto) Gran # Lymph # (Auto) [place] # (Auto) Eos # (Auto) Baso # (Auto) PT INR pCO2 49 H pO2 83.0 HCO3 35.7 H ABG pH 7.47 H ABG Total CO2 37.2 H ABG O2 Saturation 98.4 H ABG O2 Content 15.7 ABG Base Excess 10.6 H ABG Hemoglobin 11.6 L ABG Carboxyhemoglobin 1.9 H POC ABG HHb (Measured) 1.6 ABG Methemoglobin 0.9 ABG O2 Capacity 16.0 Hgb O2 Saturation 95.6 FiO2 35.0 Sodium Potassium Chloride Carbon Dioxide Anion Gap BUN Creatinine Est GFR ( Amer) Est GFR (Non-Af Amer) Random Glucose Calcium Phosphorus Magnesium Total Bilirubin AST ALT Alkaline Phosphatase Total Protein Albumin Globulin Albumin/Globulin Ratio Critical Care Progress Note - Nutrition Nutrition: Nutrition Category Date Time Status Heart Healthy Diet [DIET] Diets 09/13/17 Breakfast Ordered Assessment/Plan - Assessment and Plan (Free Text) Assessment: Patient seen and examined on rounds with resdent, agree with note with following additions/exceptions: Patient is 82yo female with PMhx of Afib on Coumadin, s/p ICD placement, CHF, HTN, presented with cough, and SOB. Currently afebrile, HD stable, comfortable on 2LNC sat 100%, in NAD, off BIPAP Acute CHF exacerbation SOB Afib Recommend: - cont with supp o2 as needed - would DC antibiotics, procal negative, cultures negative - follow up ID - Lasix IV 20mg BID - Cardio follow up - resume ACEI - GI ppx - HOLD Coumadin - stable, transfer to telemetry
--- NOTE | 2017-09-15 11:28 | PN ---
DATE: 09/15/2017 PULMONARY PROGRESS NOTE SUBJECTIVE: The patient was seen and examined in Intensive Care Unit with her sister present at the bedside and ICU Team present at bedside. The patient reports feeling a little better, less short of breath and less fatigued. Her hypotension has resolved. She is now on Lasix 20 mg twice a day. She is on Solu-Medrol 40 mg every 12 hours since yesterday. PHYSICAL EXAMINATION: VITAL SIGNS: Temperature 98.4, blood pressure is 110/70, pulse 84, respirations 22 and pulse oximetry is 93 on nasal cannula at 3 liters per minute. HEAD, EARS, NOSE, AND THROAT: Within normal limits. NECK: Supple with no jugular vein distention. CARDIOVASCULAR: Systolic ejection murmur, positive S3 gallop. PULMONARY: Crackles at both lung bases, few expiratory wheezes. GASTROINTESTINAL: Soft, nontender, no organomegaly. EXTREMITIES: Positive for edema. No cyanosis, no clubbing. SKIN: No acute skin rash. NEUROLOGIC: Limited at present time. PERTINENT LABORATORY DATA: Reviewed. Her chest x-ray was done. Her BNP yesterday was 9730. Today's data is pH is 7.47, pCO2 of 49 and pO2 of 83, which was acceptable. Her sodium was 138, potassium 4.0. WBC 5.8. ASSESSMENT: Respiratory insufficiency, rule out right lower lobe pneumonia, small right pleural effusion, status post pacemaker, recurrent congestive heart failure, the opacity at the right base is improving, it is more likely to be the fluid dependent rather than pneumonia. This was discussed with ICU Team. Luis Orona MD
--- NOTE | 2017-09-15 22:54 | PN ---
DATE: SUBJECTIVE: The patient is an 82-year-old, seen and examined, sitting in chair, daughter is at the bedside. According to daughter, she did eat, had episode of shortness of breath this morning, was given extra Lasix, seems to be doing well now. OBJECTIVE: VITAL SIGNS: She is afebrile, pulse 70, respiration 25, blood pressure 107/52. LUNGS: Bilateral soft crackle in the right lower lung region. HEART: S1 and S2 audible. ABDOMEN: Soft, obese, nontender. No rebound. No guarding. NEUROLOGICALLY: She is awake and alert, able to communicate, but has the language barrier, just say yes or no to the question. EXTREMITIES: Bilateral legs, +2 edema. LABORATORY DATA: WBC 5.8, hemoglobin 11.8, hematocrit 36.4, platelets 184. PT 44. INR 3.72. Chemistry, sodium 138, potassium 4, chloride 92, CO2 of 36, BUN 38, creatinine 1. Blood sugar of 170. ASSESSMENT: 1. Right lower lobe infiltrate. 2. Congestive heart failure, diastolic. 3. History of hypertension. 4. Asthmatic bronchitis. 5. Hyperlipidemia. 6. Status post pacemaker placement. PLAN: Currently, patient is on Coumadin. She is on nebulizer treatment. She is getting Lasix. We will hold her today's Coumadin. Follow up PT/INR in the a.m. Follow up CBC and electrolytes in the a.m. We will make further recommendation. She is on small dose of steroids, we will continue that. Jerilyn Merrill MD
[2017-09-16] MEDS: Albuterol-Ipratrop 3 mg / 0.5 (3 ml) UD IH SCH ×4 (01:30→20:20)
[2017-09-16 06:13] LABS: ALB/GLOB RATIO 1.2 (1.1-1.8); ALBUMIN 3.9 g/dL (3.0-4.8); CALCIUM 9.3 mg/dL (8.4-10.5)
[2017-09-16 06:18] LABS: GRAN # 6.62 (1.4-6.5); GRAN % 88.4 % (50.0-68.0); HEMOGLOBIN 11.6 g/dL (12.0-16.0); LYMPH # 0.6 (1.2-3.4); LYMPH % 7.5 % (22.0-35.0); MEAN CELL VOLUME 88.9 fl (80.0-105.0); MEAN CORPUSCULAR HEMOGLOBIN 28.6 pg (25.0-35.0); MEAN CORPUSCULAR HGB CONC 32.2 g/dl (31.0-37.0); MEAN PLATELET VOLUME 11.4 fl (7.0-11.0); MONO # 0.3 (0.1-0.6); MONO % 4.1 % (1.0-6.0); RBC 4.05 10^6/uL (3.5-6.1); RED CELL DISTRIBUTION WIDTH 14.4 % (11.5-14.5); WHITE BLOOD COUNT 7.5 10^3/ul (4.5-11.0)
[2017-09-16 06:22] LABS: PROTHROMBIN TIME 42.8 SECONDS (9.4-12.5)
[2017-09-16 06:24] LABS: INR 3.63 (0.93-1.08)
[2017-09-16 06:42] LABS: ARTERIAL BLOOD GAS HCO3 30.6 mmol/L (21-28); ARTERIAL BLOOD GAS HEMOGLOBIN 10.7 g/dL (11.7-17.4); ARTERIAL BLOOD GAS O2 CAPACITY 14.6 mL/dl (16-24); ARTERIAL BLOOD GAS O2 CONTENT 14.3 ML/dl (15-23); ARTERIAL BLOOD GAS O2 SAT 97.7 % (95-98); ARTERIAL BLOOD GAS PCO2 42 mm/Hg (35-45); ARTERIAL BLOOD GAS PH 7.47 (7.35-7.45); ARTERIAL BLOOD GAS TCO2 31.9 mmol.L (22-28)
--- NOTE | 2017-09-16 07:22 | CP.PCM.PN ---
Subjective - Date & Time of Evaluation Date of Evaluation: 09/16/17 Time of Evaluation: 07:00 - Subjective Subjective: Stable in ICU. She feels much better. She did not need Bipap mask last night. No CP. Was OOB to chair most of yesterday. Her daughter is at her bedside. V/S noted. AF/paced PE: Lungs: rhonchi, decreased BS right base Cor.: S1S2 Abd.: soft Ext.: mild edema Neuro.: alert I/O = 880/1201 recorded Labs: INR = 3.63 K+= 4.3 Cr.+ 1.0 BC X2 NG at 3 days Echo: Preserved LV fx., mild , mild/mod MR, mod TR and mod/sev. PH. See full report. CXR today not read yet. Looks about the same. Objective - Vital Signs/Intake and Output Vital Signs (last 24 hours): Temp Pulse Resp BP Pulse Ox 97.7 F 70 31 H 125/55 L 96 09/16/17 04:00 09/16/17 07:00 09/16/17 07:00 09/16/17 07:00 09/16/17 07:00 Intake and Output: 09/16/17 09/16/17 06:59 18:59 Intake Total 180 Output Total 500 Balance -320 - Medications Medications: Current Medications Albuterol/Ipratropium (Duoneb 3 Mg/0.5 Mg (3 Ml) Ud) 3 ml IH Q2H PRN PRN Reason: Shortness of Breath Last Admin: 09/14/17 02:42 Dose: 3 ml Albuterol/Ipratropium (Duoneb 3 Mg/0.5 Mg (3 Ml) Ud) 3 ml IH [id number] [facility] Last Admin: 09/16/17 01:30 Dose: 3 ml Atorvastatin Calcium (Lipitor) 10 mg PO DAILY [facility] Last Admin: 09/15/17 09:11 Dose: 10 mg Budesonide (Pulmicort Respules) 0.5 mg IH [id number] [facility] Last Admin: 09/15/17 20:10 Dose: 0.5 mg Furosemide (Lasix) 20 mg IVP Q12 [facility] Last Admin: 09/15/17 21:17 Dose: 20 mg Methylprednisolone (Solu-Medrol) 40 mg IVP Q12 [facility] Last Admin: 09/15/17 21:18 Dose: 40 mg Pantoprazole Sodium (Protonix Ec Tab) 40 mg PO ACB [facility] Last Admin: 09/15/17 08:56 Dose: 40 mg Warfarin Sodium (Coumadin) 2 mg PO 1800 [facility] PRN Reason: Protocol Last Admin: 09/13/17 18:13 Dose: 2 mg - Labs Labs: 09/16/17 05:15 09/16/17 05:15 PT 42.8 SECONDS (9.4-12.5) H 09/16/17 05:15 INR 3.63 (0.93-1.08) H* 09/16/17 05:15 APTT 46.1 Seconds (25.1-36.5) H 09/13/17 05:50 Assessment and Plan - Assessment and Plan (Free Text) Assessment: Dyspnea/Cough Infiltrate/Effusion right lung base, R/O pneumonia, possible aspiration CHF, diastolic Hypotension Bronchitis A. Flutter with slow VR/ Episode VT/ICD implant, pocket hematoma S/P brief CPR with rib fx. HLD Osteoporosis Surgeries: GB, hysterectomy, hernia Plan: IV Lasix as BP permits > neg balance Pulm eval,tx. AB as pr ID Hold warfarin, monitor INRs daily Monitor: labs, INR's, I/O, sats., CXR, cults., etc. OOB to chair as lon. Tel bed.
[2017-09-16] MEDS: Budesonide 0.5 mg/2 ml Inhal Susp UD IH SCH ×3 (08:30→22:19)
[2017-09-16] MEDS: Pantoprazole 40 mg EC Tab PO SCH (08:42)
--- NOTE | 2017-09-16 08:51 | RAD ---
HISTORY: f/u COMPARISON: 09/15/2017 FINDINGS: LUNGS: No active pulmonary disease. PLEURA: Probable small right pleural effusion. No definite left pleural effusion. No pneumothorax. CARDIOVASCULAR: AICD. Mild cardiomegaly. No congestive change peer OSSEOUS STRUCTURES: No significant abnormalities. VISUALIZED UPPER ABDOMEN: Normal. OTHER FINDINGS: None. IMPRESSION: Small right pleural effusion. Cardiomegaly. AICD.
[2017-09-16] MEDS: MethylPREDNISolone 40 mg Vial IVP SCH ×2 (09:08→21:06)
--- NOTE | 2017-09-16 10:27 | PN ---
DATE: 09/16/2017 SUBJECTIVE: The patient is in bed, in no acute distress, nontoxic. PHYSICAL EXAMINATION: VITAL SIGNS: Temperature is 97, blood pressure 120/50, respiratory rate of 18, heart rate of 70. HEENT: Examination of HEENT is unremarkable. NECK: Supple. LUNGS: Have decreased breath sounds. HEART: Normal S1 and S2. ABDOMEN: Soft, nontender. No organomegaly. No rebound. No guarding. No masses. LABORATORY DATA: Laboratory examination reveals the patient's white count of 7.5, hemoglobin of 11. Chemistries are noted. Urinalysis is noted. Influenza is noted. The patient had a chest x-ray today. No active lung disease. ASSESSMENT AND PLAN: This is an 82-year-old female who was seen earlier this morning. The patient's daughter is at the bedside. The patient is doing much better. She is awake and doing well with SIRS, systemic inflammatory response syndrome with tachycardia, dyspnea with acute on chronic systolic congestive heart failure on top of chronic congestive heart failure. Currently off of antibiotics with normal white count. No fevers. The patient has risk of developing healthcare-associated infections and the patient does have sick sinus syndrome and status post automatic implantable cardioverter-defibrillator and pacemaker placement in 08/2017, history of hysterectomy, cholecystectomy, obesity, body mass index of 33 with atrial fibrillation, on anticoagulation. Currently off of antibiotics. We will follow closely with you. Pete Mcgarry MD
--- NOTE | 2017-09-16 19:43 | PN ---
DATE: SUBJECTIVE: Patient is 82 years old, seen and examined, lying in bed, seems to be comfortable. Complained of shortness of breath and cough. She states she cannot bring up phlegm and feels as if it is stuck in her throat. PHYSICAL EXAMINATION: VITAL SIGNS: She is afebrile, pulse 70, respirations 27, blood pressure 118/50. LUNGS: Bilateral soft crackle, more pronounced posteriorly. HEART: S1 and S2 audible. ABDOMEN: Soft. Nontender. No rebound. No guarding. NEUROLOGIC: She is awake, alert, oriented, communicative. LABORATORY EXAM: WBC is 7.5, hemoglobin 11.6, hematocrit 36, platelet 211. PT 42.8, INR 3.3, and 63. Chemistry: Sodium 141, potassium 4.3, chloride 91, CO2 of 39, BUN 44, creatinine 1.1, blood sugar of 170. Had x-ray chest done that shows small right pleural effusion and cardiomegaly and AICD in place. ASSESSMENT: 1. [id number] congestive heart failure, diastolic. 2. Asthmatic bronchitis. 3. Status post defibrillator placement. 4. Right lower lobe pneumonia. 5. Hyperlipidemia. PLAN: We will hold the patient's Coumadin. She is supratherapeutic. Continue nebulizer treatment. Continue Lasix and statins. She is on 40 mg of steroid; we will continue. I will request for chest PT. Follow up her CBC, electrolyte, PT/INR in the a.m. Jerilyn Merrill MD
[2017-09-17] MEDS: Albuterol-Ipratrop 3 mg / 0.5 (3 ml) UD IH SCH ×4 (02:20→22:06)
[2017-09-17 06:14] LABS: INR 2.32 (0.93-1.08); PROTHROMBIN TIME 27.1 SECONDS (9.4-12.5)
[2017-09-17 06:40] LABS: ALB/GLOB RATIO 1.2 (1.1-1.8); ALBUMIN 3.9 g/dL (3.0-4.8); CALCIUM 9.2 mg/dL (8.4-10.5)
[2017-09-17] MEDS: Budesonide 0.5 mg/2 ml Inhal Susp UD IH SCH ×2 (07:26→22:06)
[2017-09-17] MEDS: Pantoprazole 40 mg EC Tab PO SCH (08:00)
--- NOTE | 2017-09-17 08:07 | CP.PCM.PN ---
Subjective - Date & Time of Evaluation Date of Evaluation: 09/17/17 Time of Evaluation: 07:00 - Subjective Subjective: Stable in ICU. She feels much better. She did not need Bipap mask last night. No CP. Was OOB to chair most of yesterday. Her daughter is at her bedside. V/S noted. AF/paced PE: Lungs: rhonchi, decreased BS right base Cor.: S1S2 Abd.: soft Ext.: min. edema Neuro.: alert I/O = 600/1000 recorded Labs: INR = 2.32 K+= 3.2 Cr.+ 1.1 BC X2 NG at 4 days Echo: Preserved LV fx., mild , mild/mod MR, mod TR and mod/sev. PH. See full report. CXR today not read yet. Looks about the same. Objective - Vital Signs/Intake and Output Vital Signs (last 24 hours): Temp Pulse Resp BP Pulse Ox 97.7 F 71 19 122/56 L 96 09/16/17 04:00 09/17/17 05:18 09/17/17 05:18 09/17/17 05:18 09/17/17 05:18 Intake and Output: 09/17/17 09/17/17 06:59 18:59 Output Total 600 Balance -600 - Medications Medications: Current Medications Albuterol/Ipratropium (Duoneb 3 Mg/0.5 Mg (3 Ml) Ud) 3 ml IH Q2H PRN PRN Reason: Shortness of Breath Last Admin: 09/14/17 02:42 Dose: 3 ml Albuterol/Ipratropium (Duoneb 3 Mg/0.5 Mg (3 Ml) Ud) 3 ml IH [id number] [facility] Last Admin: 09/17/17 07:26 Dose: 3 ml Atorvastatin Calcium (Lipitor) 10 mg PO DAILY [facility] Last Admin: 09/16/17 09:08 Dose: 10 mg Budesonide (Pulmicort Respules) 0.5 mg IH [id number] [facility] Last Admin: 09/17/17 07:26 Dose: 0.5 mg Furosemide (Lasix) 20 mg IVP Q12 [facility] Last Admin: 09/16/17 21:05 Dose: 20 mg Methylprednisolone (Solu-Medrol) 30 mg IVP Q12 [facility] Pantoprazole Sodium (Protonix Ec Tab) 40 mg PO ACB [facility] Last Admin: 09/17/17 08:00 Dose: 40 mg Warfarin Sodium (Coumadin) 2 mg PO 1800 [facility] PRN Reason: Protocol Last Admin: 09/13/17 18:13 Dose: 2 mg - Labs Labs: 09/16/17 05:15 09/17/17 05:25 PT 27.1 SECONDS (9.4-12.5) H 09/17/17 05:25 INR 2.32 (0.93-1.08) H 09/17/17 05:25 APTT 46.1 Seconds (25.1-36.5) H 09/13/17 05:50 Assessment and Plan - Assessment and Plan (Free Text) Assessment: Dyspnea/Cough Infiltrate/Effusion right lung base, R/O pneumonia, possible aspiration CHF, diastolic Hypotension Bronchitis A. Flutter with slow VR/ Episode VT/ICD implant, pocket hematoma, improved S/P brief CPR with rib fx. HLD Osteoporosis Surgeries: GB, hysterectomy, hernia Plan: IV Lasix > neg balance Replace K+ Pulm eval,tx. Warfarin by INRs daily Monitor: labs, INR's, I/O, sats., CXR, cults., etc. OOB to chair as lon./PT/Ambulation as lon. Tel bed.
--- NOTE | 2017-09-17 08:24 | RAD ---
HISTORY: f/u COMPARISON: 09/16/2017. FINDINGS: LUNGS: The lungs are clear. There is moderate pulmonary venous congestion PLEURA: No significant pleural effusion identified, no pneumothorax apparent. CARDIOVASCULAR: There is persistent cardiomegaly and prominent central vasculature. There is stable position of left-sided dual lead transvenous permanent pacing device. OSSEOUS STRUCTURES: No significant abnormalities. VISUALIZED UPPER ABDOMEN: Normal. OTHER FINDINGS: None. IMPRESSION: Moderate pulmonary venous congestion. No active pulmonary disease.
--- NOTE | 2017-09-17 08:45 | PN ---
DATE: 09/17/2017 PULMONARY NOTE SUBJECTIVE: The patient appears comfortable this morning. She is not short of breath at rest. OBJECTIVE VITAL SIGNS: Temperature is 97.7, pulse 71, respirations 19, blood pressure 122/56. Oxygen saturation on nasal cannula is 96%. HEENT: Normocephalic, atraumatic. No JVD. CARDIOVASCULAR: Systolic ejection murmur at the lower left sternal border. Positive S3 gallop. LUNGS: Less crackles at the bases. Much less rhonchi. No wheezing. EXTREMITIES: Less edema. No cyanosis, no clubbing. Calves are nontender to palpation. GASTROINTESTINAL: Abdomen is soft, nontender and nondistended. Bowel sounds are positive. SKIN: No acute rash. NEUROLOGIC: Exam limited at the present time. PERTINENT LABORATORY DATA: Chest x-ray was done this morning and reviewed. The infiltrate at the right base is certainly appears less dense - compared to last week. There remains mild pulmonary vascular congestion. IMPRESSION 1. Acute congestive heart failure. 2. Acute bronchitis. 3. Coronary artery disease, status post recent myocardial infarction. 4. Chronic cardiac arrhythmias, status post pacemaker insertion. 5. Hypotension - resolved. 3. Status post recent cardiopulmonary resuscitation. 4. Status post recent aspiration pneumonia (last admission). PLAN The patient appears much more comfortable - compared to last week. She is quite comfortable this morning. The daughter is at bedside. I did discuss the case with the night nurse at length. The night nurse stated that the patient is doing very well overall. I did review the chest x-ray as above. The infiltrate at the right base appears much less dense. There remains mild pulmonary vascular congestion. On physical exam, there is much less bronchospasm noted. In addition, the alveolar-arterial gradient is also much less. I will continue with the current nebulizer treatments and decrease the intravenous steroids this morning. I would also continue with the chest physiotherapy and have the patient out of bed as much as possible. I would continue with the treatment for congestive heart failure and coronary artery disease as per Cardiology. Input by Dr. Rodriguez is noted. The patient remains on Lasix/afterload reduction. The clinical status of this patient is significantly improved - compared to last week. I will discuss the above with the entire ICU team in the next few moments. I will also discuss the above with Dr. Ruggiero. Vicente Nobles MD [facility] # [id number] [facility]
--- NOTE | 2017-09-17 09:14 | PN ---
DATE: 09/17/2017 SUBJECTIVE: The patient has no complaints of any chest pain or shortness of breath. She states she is feeling better. She does have a cough. PHYSICAL EXAMINATION VITAL SIGNS: Temperature is 97.7, pulse of 71, blood pressure 122/56, respirations 19. GENERAL: The patient is lying in bed, flat, comfortable. HEENT: No oral lesion. Anicteric sclerae. Moist mucosa. NECK: No JVD, adenopathy, or thyromegaly. CARDIOVASCULAR: S1 and S2, regular. No murmurs, rubs, or gallops. LUNGS: Good bilateral air entry, bilateral wheezing, bilateral rhonchi. No rales. ABDOMEN: Bowel sounds are positive. Soft, nontender and nondistended. EXTREMITIES: No cyanosis, clubbing or edema. LABORATORY DATA: White count of 7.5, hemoglobin is 11.6, potassium is 3.2, creatinine is 1.1. This is the last lab that I reviewed. CBC is pending. ASSESSMENT 1. Hypokalemia. 2. Hospital-acquired pneumonia. 3. Osteoporosis. 4. Status post pacemaker. 5. Congestive heart failure secondary to systolic dysfunction. 6. Atrial fibrillation. 7. Obesity with body mass index of 33. 8. Hypotension, improved. 9. Right pleural effusion, small. PLAN: The patient is currently on Coumadin. The patient's INR this morning is 2.3. She does not have a CBC, that has been ordered. She is on Lasix twice a day. The patient is on Lipitor for dyslipidemia. She is on Solu-Medrol. I will start her on physical therapy. I will start her on physical therapy. She is waiting for transfer to the medical floor. I will discontinue her Maldonado catheter to prevent infection. She had blood cultures and urine cultures, which were negative. She is on a heart-healthy diet. I did speak to the patient's daughter at the bedside. Jw Ruggiero MD
[2017-09-17] MEDS: Potassium Chloride 20 mEq ER Tab PO SCH ×2 (09:15→18:04)
[2017-09-17] MEDS: MethylPREDNISolone 40 mg Vial IVP SCH ×2 (09:15→21:50)
--- NOTE | 2017-09-17 10:17 | PN ---
DATE: 09/16/2017 PULMONARY PROGRESS NOTE SUBJECTIVE: The patient was seen and examined in Intensive Care Unit with sister present at the bedside. She states she feels better. She is sitting up in bed. She is on nasal cannula and not short of breath. PHYSICAL EXAMINATION: VITAL SIGNS: Her oxygen saturation on nasal cannula is 95%. The rest of the vital signs, temperature is 97, pulse 70, respirations 22, blood pressure is 118/59. HEENT: Examination of head, ear, nose and throat is within normal limits. NECK: Supple with no jugular vein distentions. CHEST: Symmetrical. HEART: S1, S2. No S3. Irregular. LUNGS: Diminished breath sounds at both bases with few scattered rhonchi. No wheezing. GI: Soft, nontender. No organomegaly. EXTREMITIES: No pedal edema. SKIN: Clear with no cyanosis and no skin rashes. NEUROLOGIC: No focal deficits. LABORATORY DATA: I reviewed today's blood gases. PH is 7.47, pCO2 of 42 and pO2 of 71, the bicarb is 30. Her serum sodium is 141, potassium 4.3, BUN 44, creatinine 1.1. WBC 7.5, hemoglobin is 11.6. INR is elevated at 3.63. I evaluated her chest x-ray that shows AICD, cardiomegaly and no infiltrates and no congestive heart failure. ASSESSMENT: Recurrent congestive heart failure, atrial fibrillation, status post pacemaker implantable cardioverter-defibrillator placement 1 month ago. Admitted with exacerbation of congestive heart failure and acute bronchitis. The patient is improving on antibiotic, intravenous steroids that can be tapered as well as nebulizer treatment. We will advise not to place the patient on bilevel positive airway pressure since she is maintaining good oxygen saturation and bilevel positive airway pressure is no longer necessary. Continue DuoNeb, Pulmicort and Solu-Medrol, which will be tapered. Luis Orona MD
--- NOTE | 2017-09-17 17:14 | CP.PCM.PN ---
Subjective - Date & Time of Evaluation Date of Evaluation: 09/17/17 Time of Evaluation: 08:00 - Subjective Subjective: Comfortable on a chair, no fevers, cough is improving. Objective - Vital Signs/Intake and Output Vital Signs (last 24 hours): Temp Pulse Resp BP Pulse Ox 97.7 F 71 19 122/56 L 96 09/16/17 04:00 09/17/17 05:18 09/17/17 05:18 09/17/17 05:18 09/17/17 05:18 Intake and Output: 09/17/17 09/17/17 06:59 18:59 Output Total 600 Balance -600 - Medications Medications: Current Medications Albuterol/Ipratropium (Duoneb 3 Mg/0.5 Mg (3 Ml) Ud) 3 ml IH Q2H PRN PRN Reason: Shortness of Breath Last Admin: 09/14/17 02:42 Dose: 3 ml Albuterol/Ipratropium (Duoneb 3 Mg/0.5 Mg (3 Ml) Ud) 3 ml IH [id number] [facility] Last Admin: 09/17/17 07:26 Dose: 3 ml Atorvastatin Calcium (Lipitor) 10 mg PO DAILY [facility] Last Admin: 09/16/17 09:08 Dose: 10 mg Budesonide (Pulmicort Respules) 0.5 mg IH [id number] [facility] Last Admin: 09/17/17 07:26 Dose: 0.5 mg Furosemide (Lasix) 20 mg IVP Q12 [facility] Last Admin: 09/16/17 21:05 Dose: 20 mg Methylprednisolone (Solu-Medrol) 30 mg IVP Q12 [facility] Pantoprazole Sodium (Protonix Ec Tab) 40 mg PO ACB [facility] Last Admin: 09/17/17 08:00 Dose: 40 mg Potassium Chloride (K-Dur 20 Meq Er Tab) 30 meq PO BID [facility] Warfarin Sodium (Coumadin) 2 mg PO 1800 [facility] PRN Reason: Protocol Last Admin: 09/13/17 18:13 Dose: 2 mg - Labs Labs: 09/16/17 05:15 09/17/17 05:25 PT 27.1 SECONDS (9.4-12.5) H 09/17/17 05:25 INR 2.32 (0.93-1.08) H 09/17/17 05:25 APTT 46.1 Seconds (25.1-36.5) H 09/13/17 05:50 - Constitutional Appears: Chronically Ill - Head Exam Head Exam: NORMAL INSPECTION - ENT Exam ENT Exam: Mucous Membranes Moist - Respiratory Exam Respiratory Exam: Decreased Breath Sounds - Cardiovascular Exam Cardiovascular Exam: +S1, +S2 - GI/Abdominal Exam GI & Abdominal Exam: Soft. absent: Tenderness Assessment and Plan - Assessment and Plan (Free Text) Plan: Assessment S/P SIRS due to acute on chronic CHF with no evidence of sepsis osteoporosis sick sinus syndrome S/P AICD and pacemaker placement 2017 S/P hysterectomy S/P cholecystectomy obesity with BMI 33 atrial fibrillation on anticoagulation Plan will continue to monitor the patient off antibiotics since she is at risk for nosocomial infections
[2017-09-18] MEDS: Albuterol-Ipratrop 3 mg / 0.5 (3 ml) UD IH SCH ×4 (03:00→20:50)
[2017-09-18 07:10] LABS: INR 1.75 (0.93-1.08); PROTHROMBIN TIME 20.3 SECONDS (9.4-12.5)
[2017-09-18 07:26] LABS: CALCIUM 9.1 mg/dL (8.4-10.5)
[2017-09-18] MEDS: Budesonide 0.5 mg/2 ml Inhal Susp UD IH SCH ×2 (07:32→20:50)
--- NOTE | 2017-09-18 07:49 | CP.PCM.PN ---
Subjective - Date & Time of Evaluation Date of Evaluation: 09/18/17 Time of Evaluation: 07:00 - Subjective Subjective: Stable on 2R. She feels much better. She did not need Bipap mask last night. No CP. Was OOB to chair most of yesterday with brief ambulation. Her daughter is at her bedside. V/S noted. AF/paced PE: Lungs: decreased BS right base Cor.: S1S2 Abd.: soft Ext.: min. edema Neuro.: alert I/O = 820/650 recorded Labs: INR = 1.75 K+= 3.3 Cr.+ 1.1 BC X2 NG at 5 days Echo: Preserved LV fx., mild , mild/mod MR, mod TR and mod/sev. PH. See full report. CXR 09/17: noted Objective - Vital Signs/Intake and Output Vital Signs (last 24 hours): Temp Pulse Resp BP Pulse Ox 98.5 F 74 20 121/70 95 09/18/17 00:01 09/18/17 02:00 09/18/17 00:01 09/18/17 00:01 09/18/17 00:01 Intake and Output: 09/18/17 09/18/17 06:59 18:59 Intake Total 120 Output Total 0 Balance 120 - Medications Medications: Current Medications Albuterol/Ipratropium (Duoneb 3 Mg/0.5 Mg (3 Ml) Ud) 3 ml IH Q2H PRN PRN Reason: Shortness of Breath Last Admin: 09/14/17 02:42 Dose: 3 ml Albuterol/Ipratropium (Duoneb 3 Mg/0.5 Mg (3 Ml) Ud) 3 ml IH [id number] [facility] Last Admin: 09/18/17 07:33 Dose: 3 ml Atorvastatin Calcium (Lipitor) 10 mg PO DAILY [facility] Last Admin: 09/17/17 09:15 Dose: 10 mg Budesonide (Pulmicort Respules) 0.5 mg IH [id number] [facility] Last Admin: 09/18/17 07:32 Dose: 0.5 mg Furosemide (Lasix) 20 mg IVP Q12 [facility] Last Admin: 09/17/17 21:51 Dose: 20 mg Methylprednisolone (Solu-Medrol) 30 mg IVP Q12 [facility] Last Admin: 09/17/17 21:50 Dose: 30 mg Pantoprazole Sodium (Protonix Ec Tab) 40 mg PO ACB [facility] Last Admin: 09/17/17 08:00 Dose: 40 mg Potassium Chloride (K-Dur 20 Meq Er Tab) 30 meq PO TID [facility] Warfarin Sodium (Coumadin) 2 mg PO 1800 [facility] PRN Reason: Protocol Last Admin: 09/17/17 18:04 Dose: 2 mg Warfarin Sodium (Coumadin) 3 mg PO ONCE ONE PRN Reason: Protocol Stop: 09/18/17 10:01 - Labs Labs: 09/16/17 05:15 09/18/17 06:30 PT 20.3 SECONDS (9.4-12.5) H 09/18/17 06:30 INR 1.75 (0.93-1.08) H 09/18/17 06:30 APTT 46.1 Seconds (25.1-36.5) H 09/13/17 05:50 Assessment and Plan - Assessment and Plan (Free Text) Assessment: Dyspnea/Cough Infiltrate/Effusion right lung base, R/O pneumonia, possible aspiration CHF, diastolic Hypotension Bronchitis A. Flutter with slow VR/ Episode VT/ICD implant, pocket hematoma, improved S/P brief CPR with rib fx. HLD Osteoporosis Surgeries: GB, hysterectomy, hernia Plan: IV Lasix > neg balance Replace K+ Pulm eval,tx. Warfarin by INRs daily. 3 mg. today. Monitor: labs, INR's, I/O, sats., etc. OOB to chair as lon./PT/Ambulation as lon. TCU Eval.
[2017-09-18] MEDS ORDERED: Potassium Chloride 20 mEq ER Tab PO ONE (08:35)
--- NOTE | 2017-09-18 08:40 | PN ---
DATE: 09/18/2017 PULMONARY NOTE SUBJECTIVE: The patient appears quite comfortable this morning. She is out of bed, sitting in the chair. She is not short of breath at rest. OBJECTIVE VITAL SIGNS (last noted in the computer): Temperature is 98.5, pulse 74, respirations 18/20, blood pressure 121/70. Oxygen saturation on nasal cannula is 95-97%. HEENT: Normocephalic, atraumatic. No JVD. CARDIOVASCULAR: Systolic ejection murmur at the lower left sternal border. Positive S3 gallop. LUNGS: Less crackles at the bases. Much less rhonchi. No wheezing. EXTREMITIES: Less edema. No cyanosis, no clubbing. Calves are nontender to palpation. GASTROINTESTINAL: Abdomen is soft, nontender and nondistended. Bowel sounds are positive. SKIN: No acute rash. NEUROLOGIC: Exam limited at the present time. IMPRESSION 1. Acute congestive heart failure. 2. Acute bronchitis. 3. Coronary artery disease, status post recent myocardial infarction. 4. Chronic cardiac arrhythmias, status post pacemaker insertion. 5. Status post recent aspiration pneumonia (last admission). PLAN The patient appears very comfortable this morning. She is out of bed, sitting in the chair. Her daughter is at bedside. She is not short of breath at rest. She does state to feeling much better overall. I did discuss the case with the night nurse at length. The night nurse stated the patient had a very good night. On physical exam, her bronchospasm continues to slowly resolve. In addition, the alveolar arterial gradient also continues to resolve. I will continue with the current nebulizer treatments and current intravenous steroids (decreased yesterday) for now. The patient also remains on intravenous Lasix. Input by Cardiology is noted. The clinical status of this patient is significantly improved overall. I will discuss the above with the attending physician. Vicente Nobles MD MTDD
[2017-09-18] MEDS: Pantoprazole 40 mg EC Tab PO SCH (08:46)
[2017-09-18] MEDS: Potassium Chloride 20 mEq ER Tab PO SCH ×3 (09:43→17:54)
[2017-09-18] MEDS: MethylPREDNISolone 40 mg Vial IVP SCH ×2 (09:46→22:51)
--- NOTE | 2017-09-18 11:45 | CP.PCM.PN ---
<Blas Lee - Last Filed: 09/18/17 11:42> Subjective - Date & Time of Evaluation Date of Evaluation: 09/18/17 Time of Evaluation: 11:42 - Subjective Subjective: Patient seen and evaluated at bedside. Patient accompanied by daughter. Patient doing well overnight with no acute events. Patient states she is feeling well without any cough this morning. Denies chest pain, shortness of breath, nausea, vomiting, diarrhea, fever, chills. Objective - Vital Signs/Intake and Output Vital Signs (last 24 hours): Temp Pulse Resp BP Pulse Ox 97.7 F 71 19 124/78 98 09/18/17 06:00 09/18/17 10:00 09/18/17 06:00 09/18/17 09:49 09/18/17 06:00 Intake and Output: 09/18/17 09/18/17 06:59 18:59 Intake Total 120 Output Total 0 Balance 120 - Medications Medications: Current Medications Albuterol/Ipratropium (Duoneb 3 Mg/0.5 Mg (3 Ml) Ud) 3 ml IH Q2H PRN PRN Reason: Shortness of Breath Last Admin: 09/14/17 02:42 Dose: 3 ml Albuterol/Ipratropium (Duoneb 3 Mg/0.5 Mg (3 Ml) Ud) 3 ml IH [id number] COUNTS INCLUDE 234 BEDS AT THE [facility] Last Admin: 09/18/17 07:33 Dose: 3 ml Atorvastatin Calcium (Lipitor) 10 mg PO DAILY COUNTS INCLUDE 234 BEDS AT THE [facility] Last Admin: 09/18/17 09:56 Dose: 10 mg Budesonide (Pulmicort Respules) 0.5 mg IH [id number] COUNTS INCLUDE 234 BEDS AT THE [facility] Last Admin: 09/18/17 07:32 Dose: 0.5 mg Furosemide (Lasix) 20 mg IVP Q12 COUNTS INCLUDE 234 BEDS AT THE [facility] Last Admin: 09/18/17 09:49 Dose: 20 mg Methylprednisolone (Solu-Medrol) 30 mg IVP Q12 COUNTS INCLUDE 234 BEDS AT THE [facility] Last Admin: 09/18/17 09:46 Dose: 30 mg Pantoprazole Sodium (Protonix Ec Tab) 40 mg PO ACB COUNTS INCLUDE 234 BEDS AT THE [facility] Last Admin: 09/18/17 08:46 Dose: 40 mg Potassium Chloride (K-Dur 20 Meq Er Tab) 30 meq PO TID COUNTS INCLUDE 234 BEDS AT THE [facility] Last Admin: 09/18/17 09:43 Dose: Not Given Warfarin Sodium (Coumadin) 2 mg PO 1800 COUNTS INCLUDE 234 BEDS AT THE [facility] PRN Reason: Protocol Last Admin: 09/17/17 18:04 Dose: 2 mg - Labs Labs: 09/16/17 05:15 09/18/17 06:30 PT 20.3 SECONDS (9.4-12.5) H 09/18/17 06:30 INR 1.75 (0.93-1.08) H 09/18/17 06:30 APTT 46.1 Seconds (25.1-36.5) H 09/13/17 05:50 - Constitutional Appears: Non-toxic, No Acute Distress - Head Exam Head Exam: ATRAUMATIC, NORMAL INSPECTION, NORMOCEPHALIC - ENT Exam ENT Exam: Mucous Membranes Moist, Normal Exam - Respiratory Exam Respiratory Exam: Wheezes (Mild), NORMAL BREATHING PATTERN. absent: Rhonchi - Cardiovascular Exam Cardiovascular Exam: RRR, +S1, +S2 - GI/Abdominal Exam GI & Abdominal Exam: Soft, Normal Bowel Sounds. absent: Tenderness - Extremities Exam Extremities Exam: Normal Inspection. absent: Calf Tenderness, Pedal Edema - Neurological Exam Neurological Exam: Alert, Awake, Oriented x3 - Psychiatric Exam Psychiatric exam: Normal Affect, Normal Mood - Skin Skin Exam: Intact, Normal Color, Warm Assessment and Plan - Assessment and Plan (Free Text) Plan: 1. Hypokalemia 2. HCAP 3. CHF exacerbation secondary to systolic dysfunction 4. Osteoporosis 5. A-fib 6. Obesity 7. Right pleural effusion 8. Subtherapeutic INR Patient will continue on solumedrol and taper as per pulmonology. Patient continues to be Lasix for CHF exacerbation, will continue 20 mg IV q12. She was hypokalemic this morning and was given an extra dose of potassium supplementation. In addition, she was changed to potassium chloride 30 meq TID. Patient no longer on antibiotic therapy. Will continue with physical therapy and current medical regimen. Continue GI/DVT prophylaxis. Jesus, PGY-2 <Jw Ruggiero S - Last Filed: 09/18/17 18:54> Objective - Vital Signs/Intake and Output Vital Signs (last 24 hours): Temp Pulse Resp BP Pulse Ox 97.5 F L 70 20 149/85 98 09/18/17 12:00 09/18/17 18:00 09/18/17 12:00 09/18/17 12:00 09/18/17 06:00 Intake and Output: 09/18/17 09/18/17 06:59 18:59 Intake Total 120 Output Total 0 Balance 120 - Medications Medications: Current Medications Albuterol/Ipratropium (Duoneb 3 Mg/0.5 Mg (3 Ml) Ud) 3 ml IH Q2H PRN PRN Reason: Shortness of Breath Last Admin: 09/14/17 02:42 Dose: 3 ml Albuterol/Ipratropium (Duoneb 3 Mg/0.5 Mg (3 Ml) Ud) 3 ml IH [id number] COUNTS INCLUDE 234 BEDS AT THE [facility] Last Admin: 09/18/17 13:35 Dose: 3 ml Atorvastatin Calcium (Lipitor) 10 mg PO DAILY COUNTS INCLUDE 234 BEDS AT THE [facility] Last Admin: 09/18/17 09:56 Dose: 10 mg Budesonide (Pulmicort Respules) 0.5 mg IH [id number] COUNTS INCLUDE 234 BEDS AT THE [facility] Last Admin: 09/18/17 07:32 Dose: 0.5 mg Furosemide (Lasix) 20 mg IVP Q12 COUNTS INCLUDE 234 BEDS AT THE [facility] Last Admin: 09/18/17 09:49 Dose: 20 mg Methylprednisolone (Solu-Medrol) 30 mg IVP Q12 JOAO Last Admin: 09/18/17 09:46 Dose: 30 mg Pantoprazole Sodium (Protonix Ec Tab) 40 mg PO ACB COUNTS INCLUDE 234 BEDS AT THE [facility] Last Admin: 09/18/17 08:46 Dose: 40 mg Potassium Chloride (K-Dur 20 Meq Er Tab) 30 meq PO TID COUNTS INCLUDE 234 BEDS AT THE [facility] Last Admin: 09/18/17 17:54 Dose: 30 meq Warfarin Sodium (Coumadin) 2 mg PO 1800 JOAO PRN Reason: Protocol Last Admin: 09/17/17 18:04 Dose: 2 mg - Labs Labs: 09/16/17 05:15 09/18/17 06:30 PT 20.3 SECONDS (9.4-12.5) H 09/18/17 06:30 INR 1.75 (0.93-1.08) H 09/18/17 06:30 APTT 46.1 Seconds (25.1-36.5) H 09/13/17 05:50 Assessment and Plan - Assessment and Plan (Free Text) Plan: Pt seen and examined. Reviewed the note of the medical support assistant. She has improved. She started to work with PT. Spoke to daughter at bedside. Eating ok. No pain. Labs reviewed. Meds reviewed. Potassium will be replaced. Increase Coumadin. Taper steroids.
--- NOTE | 2017-09-19 00:28 | PN ---
DATE: 09/18/2017 SUBJECTIVE: The patient is seen in bed, in no acute distress, nontoxic. The patient was seen earlier this morning in room 376, bed 2. Awake and alert, doing well. PHYSICAL EXAMINATION: VITAL SIGNS: Temperature is 97, blood pressure is 140/80, respiratory rate of 16. HEENT: Unremarkable. NECK: Supple. LUNGS: Decreased breath sounds. HEART: Normal S1, S2. ABDOMEN: Soft, nontender. No rebound or guarding. LABORATORY EXAMINATION: Reveals the patient to have white count of 7.5, hemoglobin of 11. Chemistries reveal a BUN of 63, creatinine of 1.2. Urinalysis is noted and serology is reviewed. Influenza is negative. Microbiology reveals the cultures are negative. Review of orders reveals the patient to be off antibiotics. The patient is on Solu-Medrol. ASSESSMENT AND PLAN: An 82-year-old female seen early this morning and is status post acute on chronic congestive heart failure with no evidence of sepsis notable. The patient does have osteoporosis, sick sinus syndrome, status post automatic implantable cardioverter-defibrillator, pacemaker placement, hysterectomy, cholecystectomy, currently off antibiotics, afebrile. The patient is at risk for developing nosocomial infections. We will follow with you. Pete Mcgarry MD
[2017-09-19] MEDS: Albuterol-Ipratrop 3 mg / 0.5 (3 ml) UD IH SCH ×4 (03:25→20:39)
[2017-09-19] MEDS: Albuterol-Ipratrop 3 mg / 0.5 (3 ml) UD IH PRN (04:48)
[2017-09-19 07:40] LABS: PROTHROMBIN TIME 22.1 SECONDS (9.4-12.5)
[2017-09-19 07:41] LABS: INR 1.9 (0.93-1.08)
[2017-09-19 07:59] VITALS: RESP 20; O2SAT 99
[2017-09-19] MEDS: Budesonide 0.5 mg/2 ml Inhal Susp UD IH SCH ×2 (08:10→20:39)
[2017-09-19] MEDS: Pantoprazole 40 mg EC Tab PO SCH (08:20)
[2017-09-19 09:13] LABS: CALCIUM 9.6 mg/dL (8.4-10.5)
--- NOTE | 2017-09-19 10:04 | PN ---
DATE: 09/19/2017 PULMONARY NOTE SUBJECTIVE: The patient appears comfortable this morning. She is out of bed, sitting in the chair. She does appear weak. PHYSICAL EXAMINATION: VITAL SIGNS: Temperature 97.2, pulse 72, respirations 18, blood pressure 123/69. Oxygen saturation on nasal cannula is 97%. HEENT: Normocephalic, atraumatic. No JVD. CARDIOVASCULAR: Systolic ejection murmur at the lower left sternal border. Positive S3 gallop. LUNGS: Less crackles at the bases. Minimal bilateral rhonchi. No wheezing. EXTREMITIES: Less edema. No cyanosis. No clubbing. Calves are nontender to palpation. GI: Abdomen is soft, nontender and nondistended. Bowel sounds are positive. SKIN: No acute rash. NEUROLOGIC: Limited at the present time. IMPRESSION: 1. Acute congestive heart failure. 2. Acute bronchitis. 3. Coronary artery disease, status post recent myocardial infarction. 4. Chronic cardiac arrhythmias, status post pacemaker insertion. 5. Status post recent aspiration pneumonia (last admission). PLAN: The patient appears comfortable this morning. She is out of bed, sitting in the chair. She does state to feeling better overall. As above, she does appear very weak. The daughter is at bedside. I did discuss the case with the daughter at length. On physical exam, her bronchospasm continues to slowly resolve. In addition, the alveolar-arterial gradient is significantly less. I will continue with the current nebulizer treatments and current intravenous steroids for now. I would continue with the treatment for congestive heart failure as per Cardiology. Input by Dr. Rodriguez is noted. The patient remains on Lasix/afterload reduction. The clinical status of this patient is certainly improved - compared to the initial presentation. However, again, her future status/prognosis does remain guarded. I will discuss the above with the attending physician. Vicente Nobles MD MTDKraig
[2017-09-19] MEDS: Potassium Chloride 20 mEq ER Tab PO SCH ×3 (10:34→17:15)
[2017-09-19] MEDS: MethylPREDNISolone 40 mg Vial IVP SCH ×2 (10:35→21:05)
[2017-09-19 13:11] VITALS: PULSE 70
[2017-09-19 13:44] VITALS: TEMP 97.6
--- NOTE | 2017-09-19 13:54 | PN ---
DATE: 09/19/2017 SUBJECTIVE: The patient is seen sitting in a chair on telemetry. She is uncomfortable. She continues to have some dyspnea and peripheral edema. Family is concerned about the use of steroids in conjunction with warfarin and the potential interactions. CURRENT MEDICATIONS: Include DuoNeb inhaler, Lasix 20 mg b.i.d., potassium 30 mEq t.i.d., Lipitor 10 mg daily, Protonix, Pulmicort inhaler and Solu-Medrol 30 mg every 12 hours. Warfarin is being adjusted as needed. PHYSICAL EXAMINATION: GENERAL: She is an obese elderly woman. VITAL SIGNS: Her blood pressure is 120/56 with a pulse of 70 with ventricular pacing, respirations are 16. She is afebrile. HEENT: No JVD. CHEST: Bilateral scattered rhonchi heard. HEART: PMI displaced laterally with systolic murmur noted to the left sternal border as well as at the apex. ABDOMEN: Soft, obese, nontender and normoactive bowel sounds. EXTREMITIES: 1-2+ leg edema. DIAGNOSTIC DATA: Potassium 4.7, BUN and creatinine are 60 and 1.1 with bicarbonate 37, glucose is 183. INR of 1.9. IMPRESSION: 1. Decompensated congestive heart failure, diastolic, [id number]. 2. Possible right lower lobe infiltrate. 3. Chronic atrial flutter. 4. Recent ventricular tachycardia, status post implantable cardioverter-defibrillator implant, clinically improved. RECOMMENDATIONS: Her current medications will continue for now. Lasix dose will be increased to 40 b.i.d. for better diuresis. Coumadin dose will be adjusted as needed. The patient will be evaluated for possible TCU transfer. We will continue follow and make further recommendations as appropriate. Toño Vernon MD
[2017-09-19 21:10] VITALS: BP 121/85
--- NOTE | 2017-09-20 03:02 | PN ---
DATE: SUBJECTIVE: The patient was seen early this morning in room 276, bed 2. No fevers. No chills. PHYSICAL EXAMINATION: VITAL SIGNS: Temperature is 98, blood pressure is 120/60, respiratory rate of 16. HEENT: Unremarkable. NECK: Supple. LUNGS: Had decreased breath sounds. HEART: Normal S1 and S2. ABDOMEN: Soft and nontender. LABORATORY DATA: Reveals the patient's white count is 7.5, hemoglobin of 11, platelets of 211. Chemistries reveals BUN of 60 and creatinine of 1.1. Procalcitonin is less than 0.5. Urinalysis is noted. Serology is noted. Negative for influenza. Review of orders reveals the patient to be off of antibiotics. ASSESSMENT AND PLAN: This is an 82-year-old female, who was seen earlier this morning with acute on chronic congestive heart failure, no evidence of sepsis. The patient does have osteoporosis, sick sinus syndrome, status post automatic implantable cardioverter and defibrillator, pacemaker placement, history of hysterectomy, cholecystectomy; currently off antibiotics, afebrile, normal white count. The patient is at risk for developing nosocomial infections. Pete Mcgarry MD
--- NOTE | 2017-09-20 05:44 | DS ---
HISTORY OF PRESENT ILLNESS: This is an 82-year-old female who had come into the hospital, was found to have hospital-acquired pneumonia. The patient was having worsening shortness of breath; so, she came in for evaluation. Chest x-ray showed she had pneumonia. She was treated with IV antibiotics. She had improvement of her symptoms. She also was placed on Solu-Medrol. She was seen by Cardiology and Pulmonary. She had cultures done that were negative. She has no complaints of any headaches or dizziness. No nausea, no vomiting. She has been ambulating better. I will see if she qualifies for the Transitional Care Unit; otherwise, we will have to discharge her home. reevaluate her today to see if she qualifies. PHYSICAL EXAMINATION: VITAL SIGNS: Temperature is 97.8, pulse is 72, blood pressure is 129/68, respirations 20. GENERAL: The patient is lying in bed, flat, comfortable. HEENT: No oral lesion. Anicteric sclerae. Moist mucosa. NECK: No JVD, adenopathy, or thyromegaly. CARDIOVASCULAR: S1 and S2, regular. No murmurs, rubs, or gallops. LUNGS: Clear to auscultation bilaterally. No wheeze, rales, or rhonchi. ABDOMEN: Bowel sounds are positive, soft, nontender and nondistended. EXTREMITIES: No cyanosis, clubbing or edema. ASSESSMENT: 1. Hospital-acquired pneumonia. 2. Hypokalemia. 3. Congestive heart failure secondary to systolic dysfunction. 4. Osteoporosis. 5. Atrial fibrillation, on Coumadin. 6. Right pleural effusion. PLAN: The patient is currently comfortable. She has an INR of 1.9. Her Coumadin dosage was increased. She was given 3 mg yesterday. The patient is on potassium replacement. She is on Lasix twice a day. The patient is receiving Lipitor for dyslipidemia. She is on Protonix. The patient is on Solu-Medrol, this has been tapered. She is on a heart-healthy diet. Condition is stable. Activities: Increase as tolerated. Jw Ruggiero MD [facility] # [id number]
== END 2017-09-19 21:22 | DRG 291 ==
LOC: ED 18:26 → ERH 20:21 → ICU 21:05 → CCU 09-14 18:04 → 3RSO 09-17 19:03 → 2RSO 09-18 15:40
PROVIDERS: ADMIT Internal Medicine Nephrology; ATTEND Internal Medicine Nephrology
DX: I11.0 Hypertensive heart disease with heart failure (principal); J18.9 Pneumonia, unspecified organism; I50.43 Acute on chronic combined systolic (congestive) and diastolic (congestive) heart failure; J20.9 Acute bronchitis, unspecified; E87.6 Hypokalemia; M81.0 Age-related osteoporosis without current pathological fracture; I48.91 Unspecified atrial fibrillation; I25.10 Atherosclerotic heart disease of native coronary artery without angina pectoris; I08.0 Rheumatic disorders of both mitral and aortic valves; E78.5 Hyperlipidemia, unspecified; I25.2 Old myocardial infarction; Y95 Nosocomial condition; E66.9 Obesity, unspecified; Z68.33 Body mass index [BMI] 33.0-33.9, adult; Z79.01 Long term (current) use of anticoagulants; Z90.49 Acquired absence of other specified parts of digestive tract; Z90.710 Acquired absence of both cervix and uterus; Z95.810 Presence of automatic (implantable) cardiac defibrillator

== ENCOUNTER 2017-09-19 21:22 | Inpatient (IN) | payer MEDICARE ==
[2017-09-19] MEDS ORDERED: Albuterol-Ipratrop 3 mg / 0.5 (3 ml) UD IH PRN (22:16)
[2017-09-20 00:54] VITALS: BMI 32.6
[2017-09-20] MEDS: Pantoprazole 40 mg EC Tab PO SCH (06:23)
[2017-09-20] MEDS: Budesonide 0.5 mg/2 ml Inhal Susp UD IH SCH ×2 (07:18→20:19)
[2017-09-20] MEDS: Albuterol-Ipratrop 3 mg / 0.5 (3 ml) UD IH SCH ×3 (07:20→20:19)
--- NOTE | 2017-09-20 07:57 | CP.PCM.PN ---
Subjective - Date & Time of Evaluation Date of Evaluation: 09/20/17 Time of Evaluation: 07:00 - Subjective Subjective: Stable in TCU now. She feels OK. Still some cough. Daughter present. V/S noted. PE: Lungs: few rhonchi Cor.: S1S2 Abd.: soft Ext.: mild edema Neuro.: alert Labs 09/19 noted. INR= 1.9, K+= 4.7, C.= 1.1 Echo: Nl LV fx., Mild , Mild/mod MR, Mod. TR, Mod/Sev. PH Objective - Vital Signs/Intake and Output Vital Signs (last 24 hours): Temp Pulse Resp BP Pulse Ox 97.8 F 70 18 114/64 96 09/20/17 06:00 09/20/17 06:00 09/20/17 06:00 09/20/17 06:00 09/20/17 06:00 - Medications Medications: Current Medications Albuterol/Ipratropium (Duoneb 3 Mg/0.5 Mg (3 Ml) Ud) 3 ml IH Q2H PRN PRN Reason: Shortness of Breath Albuterol/Ipratropium (Duoneb 3 Mg/0.5 Mg (3 Ml) Ud) 3 ml IH [id number] Arformoterol Tartrate (Brovana) 15 mcg IH [id number] [facility] Last Admin: 09/20/17 07:18 Dose: 15 mcg Atorvastatin Calcium (Lipitor) 10 mg PO DAILY JOAO Budesonide (Pulmicort Respules) 0.5 mg IH [id number] [facility] Last Admin: 09/20/17 07:18 Dose: 0.5 mg Furosemide (Lasix) 40 mg PO BID JOAO Methylprednisolone (Solu-Medrol) 30 mg IVP Q12 JOAO Pantoprazole Sodium (Protonix Ec Tab) 40 mg PO 0600 JOAO Last Admin: 09/20/17 06:23 Dose: 40 mg Potassium Chloride (Klor-Con 10) 30 meq PO DAILY [facility] Sodium Chloride ([place] Nasal [place]) 0 ml NS Q4 PRN PRN Reason: Nasal congestion Warfarin Sodium (Coumadin) 4 mg PO 1800 JOAO PRN Reason: Protocol Assessment and Plan - Assessment and Plan (Free Text) Assessment: Dyspnea/Cough Infiltrate/Effusion Right base, R/O pneumonia CHF, diastolic Bronchitis A. Flutter with slow VR/VT episode/ICD implant/Pocket hematoma, improving S/P brief CPR with rib fx. HLD Osteoporosis Surgeries: GB, Hysterectomy,Hernia Plan: Await AM labs OOB/[place]/rehab Efforts As per Dr. Ruggiero, ID, Pulm.
[2017-09-20] MEDS ORDERED: Arformoterol 15 mcg/2 ml Inh Sol IH SCH (08:00)
[2017-09-20] MEDS ORDERED: Potassium Chloride 10 mEq ER Tab PO SCH (10:00)
[2017-09-20] MEDS: Potassium Chloride 10 mEq ER Tab PO SCH (10:27)
[2017-09-20] MEDS: MethylPREDNISolone 40 mg Vial IVP SCH ×2 (10:30→21:34)
--- NOTE | 2017-09-20 11:02 | PN ---
DATE: 09/20/2017 SUBJECTIVE: The initial H and P was reviewed and I agree with this. Patient has no complaints of any chest pain. No shortness of breath. She does have a cough. PHYSICAL EXAMINATION VITAL SIGNS: Temperature is 97.8, pulse is 71, blood pressure is 125/68, respirations 18. GENERAL: The patient is lying in bed, flat, comfortable. HEENT: No oral lesion. Anicteric sclerae. Moist mucosa. NECK: No JVD, adenopathy, or thyromegaly. CARDIOVASCULAR: S1 and S2, regular. No murmurs, rubs, or gallops. LUNGS: Clear to auscultation bilaterally. No wheeze, rales, or rhonchi. ABDOMEN: Bowel sounds are positive. Soft, nontender and nondistended. EXTREMITIES: No cyanosis, clubbing or edema. ASSESSMENT: 1. Hospital-acquired pneumonia. 2. Hypokalemia, improved. 3. Congestive heart failure secondary to systolic dysfunction, stable. 4. Osteoporosis. 5. Atrial fibrillation, on Coumadin. 6. Right-sided pleural effusion. PLAN: The patient is currently on Coumadin at 4 mg, this will be continued. She is taking Brovana for her breathing. She is on potassium. I will change her potassium to once a day. I will also change her IV Lasix to p.o. Lasix. She is going to be on Lipitor for dyslipidemia. She is on Solu-Medrol. We will continue to taper off. She is on Protonix, this will be continued. She is going to be getting physical therapy. She is on a heart-healthy diet. We will continue to have consultation with Cardiology and Pulmonary. Jw Ruggiero MD
--- NOTE | 2017-09-20 13:31 | PN ---
DATE: 09/20/2017 SUBJECTIVE: The patient appears comfortable this morning. She is not short of breath at rest. She is out of bed, sitting in the chair. PHYSICAL EXAMINATION: VITAL SIGNS: Temperature is 97.8, pulse 88, respirations 18, blood pressure 114/64. Oxygen saturation on nasal cannula is 96%. HEENT: Normocephalic, atraumatic. No JVD. CARDIOVASCULAR: Systolic ejection murmur at the lower left sternal border. Questionable S3 gallop. LUNGS: Minimal crackles at the bases. Minimal loose rhonchi. No wheezing. EXTREMITIES: Less edema. No cyanosis, no clubbing. Calves are nontender to palpation. GASTROINTESTINAL: Abdomen is soft, nontender and nondistended. Bowel sounds are positive. SKIN: No acute rash. NEUROLOGIC: Limited at the present time. IMPRESSION: 1. Acute congestive heart failure. 2. Acute bronchitis. 3. Coronary artery disease, status post recent myocardial infarction. 4. Chronic cardiac arrhythmias, status post pacemaker insertion. 5. Status post recent aspiration pneumonia (last admission). PLAN: The patient appears comfortable this morning. She is out of bed, sitting in the chair. She is not short of breath at rest. She does state to feeling better overall. I did discuss the case with the daughter and night nurse at length. Apparently, the patient did have a good night. On physical exam, there remains mild bronchospasm. However, the alveolar-arterial gradient is significantly less. I will continue the current nebulizer treatments and low-dose intravenous steroids for now. I would continue with the treatment for congestive heart failure as per Cardiology. The patient remains on Lasix. The clinical status of the patient is significantly improved - compared to the initial presentation. However, again, her future status/prognosis does remain guarded. The patient is now on the Transitional Unit where she will participate with physical therapy. I will discuss the above with Dr. Ruggiero. Vicente Nobles MD [facility]
[2017-09-21] MEDS: Albuterol-Ipratrop 3 mg / 0.5 (3 ml) UD IH SCH ×4 (01:54→21:50)
[2017-09-21] MEDS: Pantoprazole 40 mg EC Tab PO SCH (05:51)
[2017-09-21] MEDS: Budesonide 0.5 mg/2 ml Inhal Susp UD IH SCH ×2 (07:13→21:50)
--- NOTE | 2017-09-21 07:28 | CP.PCM.PN ---
Subjective - Date & Time of Evaluation Date of Evaluation: 09/21/17 Time of Evaluation: 07:00 - Subjective Subjective: Stable in TCU now. She feels OK. + ambulations. Daughter present. V/S noted. PE: Lungs: few rhonchi Cor.: S1S2 Abd.: soft Ext.: mild edema Neuro.: alert Labs 09/19 noted. INR= 1.9, K+= 4.7, C.= 1.1. Today's labs not drawn yet. Echo: Nl LV fx., Mild , Mild/mod MR, Mod. TR, Mod/Sev. PH Objective - Vital Signs/Intake and Output Vital Signs (last 24 hours): Temp Pulse Resp BP Pulse Ox 97.9 F 98 H 69 H 118/60 20 L 09/20/17 13:05 09/20/17 17:00 09/20/17 17:00 09/20/17 17:54 09/20/17 17:00 - Medications Medications: Current Medications Albuterol/Ipratropium (Duoneb 3 Mg/0.5 Mg (3 Ml) Ud) 3 ml IH Q2H PRN PRN Reason: Shortness of Breath Albuterol/Ipratropium (Duoneb 3 Mg/0.5 Mg (3 Ml) Ud) 3 ml IH [id number] [facility] Last Admin: 09/21/17 07:13 Dose: 3 ml Atorvastatin Calcium (Lipitor) 10 mg PO DAILY [facility] Last Admin: 09/20/17 10:30 Dose: 10 mg Budesonide (Pulmicort Respules) 0.5 mg IH [id number] [facility] Last Admin: 09/21/17 07:13 Dose: 0.5 mg Furosemide (Lasix) 40 mg PO BID [facility] Last Admin: 09/20/17 17:54 Dose: 40 mg Methylprednisolone (Solu-Medrol) 30 mg IVP Q12 [facility]AO Last Admin: 09/20/17 21:34 Dose: 30 mg Pantoprazole Sodium (Protonix Ec Tab) 40 mg PO 0600 [facility] Last Admin: 09/21/17 05:51 Dose: 40 mg Potassium Chloride (Klor-Con 10) 30 meq PO DAILY [facility] Last Admin: 09/20/17 10:27 Dose: 30 meq Sodium Chloride ([place] Nasal [place]) 0 ml NS Q4 PRN PRN Reason: Nasal congestion Last Admin: 09/20/17 21:34 Dose: 2 spr Warfarin Sodium (Coumadin) 4 mg PO 1800 JOAO PRN Reason: Protocol Last Admin: 09/20/17 17:54 Dose: 4 mg Assessment and Plan - Assessment and Plan (Free Text) Assessment: Dyspnea/Cough Infiltrate/Effusion Right base, R/O pneumonia CHF, diastolic Bronchitis A. Flutter with slow VR/VT episode/ICD implant/Pocket hematoma, improving S/P brief CPR with rib fx. HLD Osteoporosis Surgeries: GB, Hysterectomy,Hernia Plan: Await AM labs OOB/[place]/rehab Efforts As per Dr. Ruggiero, ID, Pulm.
[2017-09-21] MEDS: Potassium Chloride 10 mEq ER Tab PO SCH (07:39)
[2017-09-21 07:44] LABS: MEAN CELL VOLUME 88.9 fl (80.0-105.0); MEAN CORPUSCULAR HEMOGLOBIN 28.8 pg (25.0-35.0); MEAN CORPUSCULAR HGB CONC 32.3 g/dl (31.0-37.0); MEAN PLATELET VOLUME 11.6 fl (7.0-11.0); RBC 4.52 10^6/uL (3.5-6.1); RED CELL DISTRIBUTION WIDTH 14.2 % (11.5-14.5); WHITE BLOOD COUNT 9.6 10^3/ul (4.5-11.0)
[2017-09-21 07:58] LABS: ALB/GLOB RATIO 1.4 (1.1-1.8); ALBUMIN 4.1 g/dL (3.0-4.8); CALCIUM 9.8 mg/dL (8.4-10.5); PROTHROMBIN TIME 33.9 SECONDS (9.4-12.5)
[2017-09-21 07:59] LABS: INR 2.88 (0.93-1.08)
--- NOTE | 2017-09-21 09:04 | CON ---
DATE: 09/20/2017 LOCATION: The patient was seen earlier this morning in Room 218. The patient's daughter is at the bedside. CHIEF COMPLAINT: Weakness times several days. HISTORY OF PRESENT ILLNESS: This is an 82-year-old female who was seen earlier this morning in Transitional Care, Room 218 with a past medical history of obesity with BMI of 37 with atrial fibrillation, osteoporosis, sick sinus syndrome, had an AICD/pacemaker placement, hysterectomy, cholecystectomy. He was in acute care. The patient was admitted with [id number] congestive heart failure and no evidence of infection. Originally, the patient had been empirically covered with antibiotics. Workup revealed no evidence of infection, antibiotics were discontinued. Patient was transferred to Transitional Care for physical therapy. REVIEW OF SYSTEMS: Reveals patient has no fevers, no chills, no nausea, no vomiting, no diarrhea, no constipation. PAST MEDICAL HISTORY: Significant for obesity with BMI of 38, atrial fibrillation, osteoporosis, sick sinus syndrome and congestive heart failure. PAST SURGICAL HISTORY: Significant for AICD, pacemaker, hysterectomy, cholecystectomy. ALLERGIES: PATIENT HAS HAD NO KNOWN ALLERGIES. MEDICATIONS: Reviewed. PHYSICAL EXAMINATION: VITAL SIGNS: Patient's temperature 98, blood pressure 112/70, respiratory rate is 16, heart rate is 82. HEENT: Unremarkable. NECK: Supple. LUNGS: Have decreased breath sounds. HEART: Normal S1 and S2. ABDOMEN: Soft, nontender. LABORATORY DATA: Reveals the patient's white count is 7.5, hemoglobin 11, platelets of 211. BUN 60, creatinine of 1.1. Procalcitonin is less than 0.05. Urinalysis is noted. Nitrite is negative. Blood culture and urine culture is negative. MRSA screen is negative. ASSESSMENT AND PLAN: This is an 82-year-old female with obesity, atrial fibrillation, osteoporosis, sick sinus syndrome, automatic implantable cardioverter and defibrillator, pacemaker, congestive heart failure, hysterectomy, cholecystectomy. Patient has had chronic dyspnea and hospitalization with systemic inflammatory response syndrome and acute congestive heart failure, currently off of antibiotics, atrial fibrillation and normal white count and no evidence of infection at this point; however, the patient is at risk for developing of nosocomial infections and we will follow with you. Patient is on Solu-Medrol. Pete Mcgarry MD
--- NOTE | 2017-09-21 09:19 | PN ---
DATE: 09/21/2017 PULMONARY NOTE SUBJECTIVE: The patient appears comfortable this morning. She is out of bed sitting in the chair. She is not short of breath at rest. PHYSICAL EXAMINATION VITAL SIGNS: Last temperature recorded is 97.9, pulse this morning is 80, respiratory rate 18, last blood pressure recorded is 118/60. Oxygen saturation on nasal cannula is 95%. HEENT: Normocephalic, atraumatic. No JVD. CARDIOVASCULAR: Systolic ejection murmur at the lower left sternal border. Questionable S3 gallop. LUNGS: Minimal crackles at the bases. Much less rhonchi. No wheezing. EXTREMITIES: Less edema. No cyanosis, no clubbing. Calves are nontender to palpation. GI: Abdomen is soft, nontender and nondistended. Bowel sounds are positive. SKIN: No acute rash. NEUROLOGIC: Limited at the present time. IMPRESSION: 1. Acute congestive heart failure. 2. Acute bronchitis. 3. Coronary artery disease, status post recent myocardial infarction. 4. Chronic cardiac arrhythmias, status post pacemaker insertion. 5. Status post recent aspiration pneumonia (last admission). PLAN: The patient appears comfortable this morning. She is out of bed sitting in the chair. She is not short of breath at rest. I did discuss the case with the daughter at length. The daughter agrees that the patient is improving. On physical exam this morning, there is much less bronchospasm noted. In addition, there is no significant alveolar-arterial gradient. I will continue with the current nebulizer treatments and decrease the intravenous steroids this morning. I would continue with the treatment for acute congestive heart failure and coronary artery disease as per Cardiology. Input by Dr. Rodriguez is noted. The patient remains on Lasix therapy. Clinical status of the patient is significantly improved overall. However, her future status/prognosis does remain guarded. All are aware. I will discuss the above with Dr. Ruggiero. Vicente Nobles MD WALKER
[2017-09-21] MEDS ORDERED: MethylPREDNISolone 40 mg Vial IVP SCH (10:00)
[2017-09-21] MEDS: MethylPREDNISolone 40 mg Vial IVP SCH (17:20)
--- NOTE | 2017-09-21 19:11 | CP.PCM.PN ---
Subjective - Date & Time of Evaluation Date of Evaluation: 09/21/17 Time of Evaluation: 11:40 - Subjective Subjective: No fevers, not in distress. Objective - Vital Signs/Intake and Output Vital Signs (last 24 hours): Temp Pulse Resp BP Pulse Ox 97.9 F 98 H 69 H 118/60 20 L 09/20/17 13:05 09/20/17 17:00 09/20/17 17:00 09/20/17 17:54 09/20/17 17:00 Intake and Output: 09/20/17 09/21/17 18:59 06:59 Intake Total 420 Balance 420 - Medications Medications: Current Medications Albuterol/Ipratropium (Duoneb 3 Mg/0.5 Mg (3 Ml) Ud) 3 ml IH Q2H PRN PRN Reason: Shortness of Breath Albuterol/Ipratropium (Duoneb 3 Mg/0.5 Mg (3 Ml) Ud) 3 ml IH [id number] [facility] Last Admin: 09/20/17 20:19 Dose: 3 ml Atorvastatin Calcium (Lipitor) 10 mg PO DAILY [facility] Last Admin: 09/20/17 10:30 Dose: 10 mg Budesonide (Pulmicort Respules) 0.5 mg IH [id number] [facility] Last Admin: 09/20/17 20:19 Dose: 0.5 mg Furosemide (Lasix) 40 mg PO BID [facility] Last Admin: 09/20/17 17:54 Dose: 40 mg Methylprednisolone (Solu-Medrol) 30 mg IVP Q12 JOAO Last Admin: 09/20/17 21:34 Dose: 30 mg Pantoprazole Sodium (Protonix Ec Tab) 40 mg PO 0600 [facility] Last Admin: 09/20/17 06:23 Dose: 40 mg Potassium Chloride (Klor-Con 10) 30 meq PO DAILY [facility] Last Admin: 09/20/17 10:27 Dose: 30 meq Sodium Chloride ([place] Nasal [place]) 0 ml NS Q4 PRN PRN Reason: Nasal congestion Last Admin: 09/20/17 21:34 Dose: 2 spr Warfarin Sodium (Coumadin) 4 mg PO 1800 JOAO PRN Reason: Protocol Last Admin: 09/20/17 17:54 Dose: 4 mg - Constitutional Appears: Chronically Ill - Head Exam Head Exam: NORMAL INSPECTION - Respiratory Exam Respiratory Exam: Decreased Breath Sounds - Cardiovascular Exam Cardiovascular Exam: +S1, +S2 - GI/Abdominal Exam GI & Abdominal Exam: Soft. absent: Tenderness Assessment and Plan - Assessment and Plan (Free Text) Plan: Assessment S/P SIRS due to acute on chronic CHF with no evidence of sepsis osteoporosis sick sinus syndrome S/P AICD and pacemaker placement 2017 S/P hysterectomy S/P cholecystectomy obesity with BMI 33 atrial fibrillation on anticoagulation Plan will continue to monitor the patient off antibiotics since she is at risk for hospital-acquired infections
[2017-09-22] MEDS: Albuterol-Ipratrop 3 mg / 0.5 (3 ml) UD IH SCH ×4 (03:20→20:37)
[2017-09-22] MEDS: Pantoprazole 40 mg EC Tab PO SCH (05:21)
[2017-09-22] MEDS: MethylPREDNISolone 40 mg Vial IVP SCH ×2 (05:22→18:07)
[2017-09-22] MEDS: Budesonide 0.5 mg/2 ml Inhal Susp UD IH SCH ×2 (07:17→20:37)
[2017-09-22 07:49] LABS: INR 3.41 (0.93-1.08); PROTHROMBIN TIME 40.2 SECONDS (9.4-12.5)
[2017-09-22] MEDS: Potassium Chloride 10 mEq ER Tab PO SCH (07:54)
--- NOTE | 2017-09-22 09:14 | PN ---
DATE: 09/22/2017 PULMONARY NOTE SUBJECTIVE: The patient appears very comfortable this morning. She is not short of breath at rest. She is out of bed, sitting in the chair. PHYSICAL EXAMINATION: VITAL SIGNS: Temperature is 97.7, pulse 67, respirations 18/20, blood pressure 109/65. Oxygen saturation on room air is 94%. Oxygen saturation on nasal cannula is 96%. HEENT: Normocephalic, atraumatic. No JVD. CARDIOVASCULAR: Systolic ejection murmur at the lower left sternal border. Questionable S3 gallop. LUNGS: Minimal/less crackles at the bases. Very minimal/less rhonchi. No wheezing. EXTREMITIES: Less edema. No cyanosis. No clubbing. Calves are nontender to palpation. GI: Abdomen is soft, nontender and nondistended. Bowel sounds are positive. SKIN: No acute rash. NEUROLOGIC: Limited at the present time. IMPRESSION: 1. Acute congestive heart failure. 2. Acute bronchitis. 3. Coronary artery disease, status post recent myocardial infarction. 4. Chronic cardiac arrhythmias, status post pacemaker insertion. 5. Status post recent aspiration pneumonia (last admission). PLAN: The patient appears very comfortable this morning. She is not short of breath at rest. She is out of bed, sitting in the chair. I did discuss the case with daughter at length. We all agree that the patient is improving significantly. On physical exam, her bronchospasm continues to resolve. In addition, the alveolar arterial gradient also continues to resolve. I will continue with the current nebulizer treatments and low-dose intravenous steroids (decreased yesterday) for now. I would continue with the treatment for congestive heart failure as per Cardiology. Inputs are noted. Clinical status of the patient is significantly improved overall. However, again, the future status/prognosis does remain guarded. I will discuss the above with Dr. Ruggiero. Vicente Nobles MD MTDD
[2017-09-22 11:59] LABS: IRON 202 ug/dL (45-180)
[2017-09-22 12:08] LABS: % IRON SATURATION 57 % (20-55); TOTAL IRON BINDING CAPACITY 354 ug/dL (265-497)
--- NOTE | 2017-09-22 13:45 | PN ---
DATE: 09/22/2017 SUBJECTIVE: The patient is seen sitting in chair on the Transitional Care Unit. She was seen in the presence of her daughter. She feels somewhat better. She feels that her stamina is improved. She continues to have a nonproductive cough. CURRENT MEDICATIONS: Remain warfarin, DuoNeb inhaler, Lasix 40 mg b.i.d., potassium supplement, Lipitor 10 mg daily, Protonix, Pulmicort and Solu-Medrol. OBJECTIVE: GENERAL: She is a very elderly woman, who appears comfortable at the present time. VITAL SIGNS: Blood pressure is 110/66 with a pulse of 68, respirations are 16. She is afebrile. HEENT: No JVD. CHEST: Few scattered rhonchi noted. Her ICD pocket remains somewhat fluctuant, but soft. The wound appears to be healing well. HEART: PMI displaced laterally with a systolic murmur at the left sternal border and apex. ABDOMEN: Soft, nontender, normoactive bowel sounds. EXTREMITIES: Trace edema. DIAGNOSTIC DATA: INR is 3.41. IMPRESSION: 1. Dyspnea and cough, clinically improved. 2. Diastolic heart failure, clinically improved as well. 3. Recent ventricular tachycardia, status post implantable cardioverter-defibrillator implant. 4. Implantable cardioverter-defibrillator pocket hematoma, improved. 5. Chronic atrial flutter. RECOMMENDATIONS: Continued rehabilitation efforts are advised. Coumadin will be withheld and an INR repeated in the morning. This will be adjusted as appropriate with a target INR of 2-2.5. Further plans will be made based upon her clinical course. We will continue to follow along as needed. Toño Vernon MD
[2017-09-22 18:35] LABS: FOLATE > 20.0 ng/mL
--- NOTE | 2017-09-22 20:21 | PN ---
DATE: SUBJECTIVE: Patient is in bed, in no acute distress. PHYSICAL EXAMINATION: VITAL SIGNS: Temperature is 97, blood pressure is 120/60, respiratory rate of 18, heart rate of 70. HEENT: Unremarkable. NECK: Supple. LUNGS: Have decreased breath sounds. HEART: Normal S1 and S2. ABDOMEN: Soft and nontender. LABORATORY EXAMINATION: Reveals a white count of 9.6, hemoglobin of 13, platelets of 227. Chemistries, BUN of 58, creatinine of 1.2. ASSESSMENT AND PLAN: An 82-year-old female with status post systemic inflammatory response syndrome due to acute and chronic congestive heart failure. No evidence of sepsis. Osteoporosis, sick sinus syndrome, automated implantable cardioverter defibrillator and pacemaker, hysterectomy. Off of antibiotics. Patient is at risk of developing nosocomial infections. Pete Mcgarry MD
[2017-09-23] MEDS: Albuterol-Ipratrop 3 mg / 0.5 (3 ml) UD IH SCH ×4 (01:03→20:22)
--- NOTE | 2017-09-23 01:48 | PN ---
DATE: 09/22/2017 SUBJECTIVE: She is complaining of fatigue. She is participating in physical therapy. Shortness of breath has improved. She was admitted with hospital-acquired pneumonia, CHF, on atrial fibrillation. INR is supratherapeutic 3.7. REVIEW OF SYSTEMS: As per HPI. Rest of 12-point review of systems reviewed negative. PHYSICAL EXAMINATION: GENERAL: Comfortable in bed, in no acute distress. VITAL SIGNS: Temperature 97.8, heart rate 70 per minute, blood pressure 120/68, respiratory rate 15 per minute. HEENT: Pallor positive. NECK: No lymphadenopathy. CHEST: Air entry present and equal bilateral. No added sound. CARDIOVASCULAR: S1 and S2 normal. No murmur. No gallop. ABDOMEN: Soft, nontender. No hepatosplenomegaly. EXTREMITIES: 1+ edema. MEDICAL PATHOLOGIST: Alert and oriented x3. No focal sensorimotor deficits. LABORATORY DATA: Reviewed. MEDICATIONS: Reviewed. ASSESSMENT: 1. Hospital-acquired pneumonia. 2. Chronic obstructive pulmonary disease. 3. Atrial fibrillation, on Coumadin. 4. Coagulopathy related to Coumadin. 5. Right-sided pleural effusion. PLAN: We will hold the Coumadin. PT/INR tomorrow. Currently, on Brovana. Lasix 20 mg p.o. daily. Lipitor, we will continue Lipitor. She is on Solu-Medrol taper. Protonix 40 mg daily. She is complaining of fatigue all the time. We will check the iron studies, B12, folate levels. Cardiology and Pulmonary notes reviewed. Brina Laureano MD
[2017-09-23] MEDS: Pantoprazole 40 mg EC Tab PO SCH (05:44)
[2017-09-23] MEDS: MethylPREDNISolone 40 mg Vial IVP SCH ×2 (05:44→18:15)
[2017-09-23 07:13] LABS: BASO # 0.01 K/mm3 (0.0-2.0); BASO % 0.1 % (0.0-3.0); GRAN # 9.98 (1.4-6.5); GRAN % 85.8 % (50.0-68.0); LYMPH # 1.1 (1.2-3.4); LYMPH % 9.5 % (22.0-35.0); MEAN CELL VOLUME 87.4 fl (80.0-105.0); MEAN CORPUSCULAR HEMOGLOBIN 28.9 pg (25.0-35.0); MONO # 0.5 (0.1-0.6); MONO % 4.6 % (1.0-6.0); RBC 4.85 10^6/uL (3.5-6.1); WHITE BLOOD COUNT 11.6 10^3/ul (4.5-11.0)
[2017-09-23 07:48] LABS: PROTHROMBIN TIME 51.8 SECONDS (9.4-12.5)
[2017-09-23 07:49] LABS: INR 4.37 (0.93-1.08)
[2017-09-23] MEDS: Potassium Chloride 10 mEq ER Tab PO SCH (08:10)
[2017-09-23 08:16] LABS: IRON 198 ug/dL (45-180)
[2017-09-23 08:25] LABS: % IRON SATURATION 55 % (20-55); TOTAL IRON BINDING CAPACITY 362 ug/dL (265-497)
--- NOTE | 2017-09-23 12:24 | PN ---
DATE: 09/23/2017SUBJECTIVE: The patient appears very comfortable this morning. She is not short of breath at rest. She is out of bed, sitting in a chair. PHYSICAL EXAMINATION: VITAL SIGNS: Last temperature recorded is 97.6, pulse 74, respirations 19, blood pressure 120/62. Oxygen saturation on room air is 93%-95%. HEENT: Normocephalic, atraumatic. No JVD. CARDIOVASCULAR: Systolic ejection murmur at the lower left sternal border. Questionable S3 gallop. LUNGS: Minimal crackles at the bases. Very minimal/less rhonchi. No wheezing. EXTREMITIES: Less edema. No cyanosis, no clubbing. Calves are nontender to palpation. GI: Abdomen is soft, nontender and nondistended. Bowel sounds are positive. SKIN: No acute rash. NEUROLOGIC: Exam limited at the present time. IMPRESSION: 1. Acute congestive heart failure. 2. Acute bronchitis. 3. Coronary artery disease, status post recent myocardial infarction. 4. Chronic cardiac arrhythmias, status post pacemaker insertion. 5. Status post recent aspiration pneumonia (last admission). PLAN: The patient appears very comfortable this morning. She is not short of breath at rest. She is out of bed, sitting in the chair. I did discuss the case with the son at length. On physical exam, her bronchospasm continues to resolve. In addition, the alveolar-arterial gradient continues to resolve. I will continue with the current nebulizer treatments and low-dose intravenous steroids for now. We should be able to transition her to oral therapy in the next 24 hours. Input by Cardiology is noted. Clinical status of the patient is significantly improved overall. I will discuss the above with the attending physician. Vicente Nobles MD MTDD
--- NOTE | 2017-09-23 20:12 | PN ---
DATE: 09/23/2017 SUBJECTIVE: The patient was seen earlier today. No acute distress. Nontoxic. PHYSICAL EXAMINATION: VITAL SIGNS: Temperature is 98, blood pressure is 120/70, respiratory rate of 16. HEENT: Unremarkable. NECK: Supple. LUNGS: Have decreased breath sounds. HEART: Normal S1, S2. ABDOMEN: Soft, nontender. LABORATORY EXAMINATION: Reveals the patient has white count of 11,000 and hemoglobin of 14. Chemistries are noted and review of orders reveals the patient to be on Solu-Medrol. ASSESSMENT AND PLAN: This is an 82-year-old female with status post systemic inflammatory response syndrome due to acute on chronic congestive heart failure with no evidence of sepsis and the patient with osteoporosis, sick sinus syndrome, automatic implantable cardioverter-defibrillator, pacemaker, history of hysterectomy, currently off of antibiotics, risk of developing nosocomial infections. We will follow closely with you. Pete Mcgarry MD
[2017-09-23] MEDS: Budesonide 0.5 mg/2 ml Inhal Susp UD IH SCH (20:22)
--- NOTE | 2017-09-24 00:02 | PN ---
DATE: 09/23/2017 SUBJECTIVE: She is complaining of fatigue. She is participating in physical therapy. Shortness of breath has improved. She said she has generalized aches and pains related to osteoarthritis. She also has CHF, which is improved. INR still supratherapeutic. Iron studies were done yesterday for evaluation of fatigue, which showed elevated iron studies. Iron is elevated at 202, ferritin elevated in 400s. She is of [place] descent, raises a suspicion of hemochromatosis. Friend at bedside, discussed with the friend regarding the possibility of hemochromatosis, who was is not aware of any other family member being diagnosed with hemochromatosis. They are from [facility]. REVIEW OF SYSTEMS: As per HPI. Rest of the 12-point review of systems reviewed and negative. PHYSICAL EXAMINATION: GENERAL: Comfortable in bed, in no acute distress. VITAL SIGNS: Temperature 98.7, heart rate 60 per minute, blood pressure 120/70, respiratory rate 18 per minute, oxygen saturation 98% on room air. HEENT: No pallor. NECK: No lymphadenopathy. CHEST: Air entry present and equal bilaterally. No added sounds. CARDIOVASCULAR: S1 and S2 normal. No murmur. No gallop. ABDOMEN: Soft, nontender. No hepatosplenomegaly. EXTREMITIES: 1+ edema, improved. CENTRAL NERVOUS SYSTEM: Alert and oriented x3. No focal sensory motor deficit. LABORATORY DATA: White count 11.6, hemoglobin 14, hematocrit 42, platelet count 222. Iron 202, iron saturation 57%, ferritin 482. Bilirubin 1.2, AST 40, B12 of 587, folate more than 20. INR 4.7. MEDICATIONS: DuoNeb, Lipitor 10 mg daily, Pulmicort 0.5 inhalation, Lasix 40 mg b.i.d., Solu-Medrol 20 mg IV b.i.d., Protonix 40 mg daily, nasal spray, Coumadin on hold. ASSESSMENT AND PLAN: 1. Congestive heart failure. 2. Hospital-acquired pneumonia. 3. Chronic obstructive pulmonary disease. 4. Coagulopathy related to Coumadin, supratherapeutic INR. 5. Iron overload state, possible hemochromatosis. PLAN: We will continue to hold Coumadin, INR is 4. Participating in physical therapy. She is on Solu-Medrol. We can switch her to oral prednisone. Complaining of fatigue all the time, osteoarthritis. We will continue bronchodilators. CHF improved. She will be evaluated for hemochromatosis upon discharge from the hospital. Discussed with the friend at bedside. Discussed with the patient. Brnia Laureano MD
[2017-09-24] MEDS: Albuterol-Ipratrop 3 mg / 0.5 (3 ml) UD IH SCH ×4 (04:16→19:57)
[2017-09-24] MEDS: Pantoprazole 40 mg EC Tab PO SCH (05:12)
[2017-09-24] MEDS: MethylPREDNISolone 40 mg Vial IVP SCH (05:13)
[2017-09-24 07:17] LABS: BASO # 0.01 K/mm3 (0.0-2.0); BASO % 0.1 % (0.0-3.0); GRAN # 12.93 (1.4-6.5); GRAN % 87.8 % (50.0-68.0); HEMOGLOBIN 14.3 g/dL (12.0-16.0); LYMPH # 1.1 (1.2-3.4); LYMPH % 7.3 % (22.0-35.0); MEAN CELL VOLUME 86.6 fl (80.0-105.0); MEAN CORPUSCULAR HEMOGLOBIN 29.1 pg (25.0-35.0); MEAN CORPUSCULAR HGB CONC 33.6 g/dl (31.0-37.0); MEAN PLATELET VOLUME 12.1 fl (7.0-11.0); MONO # 0.7 (0.1-0.6); MONO % 4.8 % (1.0-6.0); RBC 4.91 10^6/uL (3.5-6.1); RED CELL DISTRIBUTION WIDTH 14.1 % (11.5-14.5); WHITE BLOOD COUNT 14.7 10^3/ul (4.5-11.0)
[2017-09-24 07:30] LABS: PROTHROMBIN TIME 48.2 SECONDS (9.4-12.5)
[2017-09-24 07:32] LABS: INR 4.07 (0.93-1.08)
--- NOTE | 2017-09-24 08:01 | CP.PCM.PN ---
Subjective - Date & Time of Evaluation Date of Evaluation: 09/24/17 Time of Evaluation: 07:00 - Subjective Subjective: Stable in TCU. She feels OK. + ambulations. Daughter present. V/S noted. PE: Lungs: few rhonchi Cor.: S1S2 Abd.: soft Ext.: mild edema Neuro.: alert Labs noted. INR= 4.07, K+= 3.5, C.= 1.2, WBC = 14,700 Echo: Nl LV fx., Mild , Mild/mod MR, Mod. TR, Mod/Sev. PH Objective - Vital Signs/Intake and Output Vital Signs (last 24 hours): Temp Pulse Resp BP Pulse Ox 97.3 F L 69 22 124/74 94 L 09/23/17 16:00 09/23/17 16:00 09/23/17 16:00 09/23/17 18:14 09/23/17 16:00 - Medications Medications: Current Medications Albuterol/Ipratropium (Duoneb 3 Mg/0.5 Mg (3 Ml) Ud) 3 ml IH Q2H PRN PRN Reason: Shortness of Breath Albuterol/Ipratropium (Duoneb 3 Mg/0.5 Mg (3 Ml) Ud) 3 ml IH [id number] [facility] Last Admin: 09/24/17 07:25 Dose: Not Given Atorvastatin Calcium (Lipitor) 10 mg PO DAILY [facility] Last Admin: 09/23/17 09:25 Dose: 10 mg Budesonide (Pulmicort Respules) 0.5 mg IH [id number] [facility] Last Admin: 09/23/17 20:22 Dose: Not Given Furosemide (Lasix) 40 mg PO BID [facility] Last Admin: 09/23/17 18:14 Dose: 40 mg Pantoprazole Sodium (Protonix Ec Tab) 40 mg PO 0600 [facility] Last Admin: 09/24/17 05:12 Dose: 40 mg Potassium Chloride (Klor-Con 10) 30 meq PO 0800 JOAO PRN Reason: Protocol Last Admin: 09/23/17 08:10 Dose: 30 meq Prednisone (Prednisone Tab) 40 mg PO DAILY [facility]AO Sodium Chloride ([place] Nasal [place]) 0 ml NS Q4 PRN PRN Reason: Nasal congestion Last Admin: 09/20/17 21:34 Dose: 2 spr Warfarin Sodium (Coumadin) 3 mg PO 1800 JOAO PRN Reason: Protocol Last Admin: 09/21/17 17:18 Dose: 3 mg - Labs Labs: 09/24/17 06:45 09/23/17 06:30 PT 48.2 SECONDS (9.4-12.5) H 09/24/17 06:45 INR 4.07 (0.93-1.08) H* 09/24/17 06:45 Assessment and Plan - Assessment and Plan (Free Text) Assessment: Dyspnea/Cough Infiltrate/Effusion Right base, R/O pneumonia CHF, diastolic Bronchitis A. Flutter with slow VR/VT episode/ICD implant/Pocket hematoma, improving S/P brief CPR with rib fx. HLD Osteoporosis Surgeries: GB, Hysterectomy,Hernia Plan: Hold warfrain. Monitor INR daily. OOB/[place]/rehab Efforts As per Dr. Ruggiero, ID, Pulm and Dr. Laureano.
[2017-09-24 08:08] LABS: CALCIUM 8.9 mg/dL (8.4-10.5)
--- NOTE | 2017-09-24 08:47 | PN ---
DATE: 09/24/2017 SUBJECTIVE: The patient has no complaints of any chest pain. No shortness of breath. No headaches or dizziness. PHYSICAL EXAMINATION: VITAL SIGNS: Temperature is 97.3, pulse is 69, blood pressure 124/74, respirations 20. GENERAL: The patient is lying in bed, flat, comfortable. HEENT: No oral lesion. Anicteric sclerae. Moist mucosa. NECK: No JVD, adenopathy, or thyromegaly. CARDIOVASCULAR: S1 and S2, regular. No murmurs, rubs, or gallops. LUNGS: Clear to auscultation bilaterally. No wheeze, rales, or rhonchi. ABDOMEN: Bowel sounds are positive. Soft, nontender and nondistended. EXTREMITIES: No cyanosis, clubbing or edema. LABORATORY DATA: Creatinine is 1.2, potassium is 3.5. ASSESSMENT: 1. Hospital-acquired pneumonia. 2. Hypokalemia, improved. 3. Congestive heart failure secondary to systolic dysfunction, stable. 4. Osteoporosis. 5. Atrial fibrillation, on Coumadin. 6. Right-sided pleural effusion. PLAN: The patient is currently comfortable. The patient is on Coumadin for anticoagulation. The patient's INR was elevated at 4.3. The patient's Coumadin is on hold. The patient has iron overload. She is receiving Lipitor for dyslipidemia. She is on Protonix. She is on Solu-Medrol, being tapered off. She is on BiPAP. She is getting physical therapy, this will be continued. Jw Ruggiero MD
[2017-09-24] MEDS: Potassium Chloride 10 mEq ER Tab PO SCH ×2 (09:10→17:49)
--- NOTE | 2017-09-24 11:33 | PN ---
DATE: 09/24/2017 SUBJECTIVE: The patient appears very comfortable this morning. She is out of bed, sitting in the chair. She is not short of breath at rest. PHYSICAL EXAMINATION: VITAL SIGNS: Last temperature recorded is 97.3, pulse this morning is 80, respiratory rate is 18, blood pressure 124/74. Oxygen saturation on room air is 94-95%. HEENT: Normocephalic, atraumatic. No JVD. CARDIOVASCULAR: Systolic ejection murmur at the lower left sternal border. Questionable S3 gallop. LUNGS: Very minimal/less crackles at the bases. Very minimal/less rhonchi. No wheezing. EXTREMITIES: Less edema. No cyanosis, no clubbing. Calves are nontender to palpation. GI: Abdomen is soft, nontender and nondistended. Bowel sounds are positive. SKIN: No acute rash. NEUROLOGIC: Exam limited at the present time. IMPRESSION: 1. Acute congestive heart failure. 2. Acute bronchitis. 3. Coronary artery disease, status post recent myocardial infarction. 4. Chronic cardiac arrhythmias, status post pacemaker insertion. 5. Status post recent aspiration pneumonia (last admission). PLAN: The patient appears very comfortable this morning. She is not short of breath at rest. She is out of bed, sitting in the chair. I did discuss the case with the daughter at length. On physical exam, her bronchospasm continues to resolve. In addition, the alveolar arterial gradient also continues to resolve. I will continue with the current nebulizer treatments and oral steroids (changed earlier today) for now. Input by Cardiology is also noted. The patient remains on Lasix. The clinical status of this patient is significantly improved overall. I will discuss the above with Dr. Ruggiero. Vicente Nobles MD MTDD
[2017-09-24 17:38] VITALS: RESP 18; TEMP 97.4; O2SAT 92
[2017-09-24] MEDS: Budesonide 0.5 mg/2 ml Inhal Susp UD IH SCH (19:57)
--- NOTE | 2017-09-24 21:49 | CP.PCM.PN ---
Subjective - Date & Time of Evaluation Date of Evaluation: 09/24/17 Time of Evaluation: 11:45 - Subjective Subjective: Afebrile, not in distress. Objective - Vital Signs/Intake and Output Vital Signs (last 24 hours): Temp Pulse Resp BP Pulse Ox 97.4 F L 69 18 114/66 92 L 09/24/17 17:38 09/24/17 17:38 09/24/17 17:38 09/24/17 17:48 09/24/17 17:38 Intake and Output: 09/24/17 09/25/17 18:59 06:59 Intake Total 120 Balance 120 - Medications Medications: Current Medications Albuterol/Ipratropium (Duoneb 3 Mg/0.5 Mg (3 Ml) Ud) 3 ml IH Q2H PRN PRN Reason: Shortness of Breath Albuterol/Ipratropium (Duoneb 3 Mg/0.5 Mg (3 Ml) Ud) 3 ml IH [id number] [facility] Last Admin: 09/24/17 19:57 Dose: Not Given Atorvastatin Calcium (Lipitor) 10 mg PO DAILY [facility] Last Admin: 09/24/17 09:12 Dose: 10 mg Budesonide (Pulmicort Respules) 0.5 mg IH [id number] [facility] Last Admin: 09/24/17 19:57 Dose: Not Given Furosemide (Lasix) 40 mg PO BID [facility] Last Admin: 09/24/17 17:48 Dose: 40 mg Pantoprazole Sodium (Protonix Ec Tab) 40 mg PO 0600 [facility] Last Admin: 09/24/17 05:12 Dose: 40 mg Potassium Chloride (Klor-Con 10) 30 meq PO BID JOAO PRN Reason: Protocol Last Admin: 09/24/17 17:49 Dose: 30 meq Prednisone (Prednisone Tab) 40 mg PO DAILY [facility] Last Admin: 09/24/17 10:15 Dose: 40 mg Sodium Chloride ([place] Nasal [place]) 0 ml NS Q4 PRN PRN Reason: Nasal congestion Last Admin: 09/20/17 21:34 Dose: 2 spr Warfarin Sodium (Coumadin) 3 mg PO 1800 JOAO PRN Reason: Protocol Last Admin: 09/21/17 17:18 Dose: 3 mg - Labs Labs: 09/24/17 06:45 09/24/17 06:45 PT 48.2 SECONDS (9.4-12.5) H 09/24/17 06:45 INR 4.07 (0.93-1.08) H* 09/24/17 06:45 - Constitutional Appears: Chronically Ill - Head Exam Head Exam: NORMAL INSPECTION - ENT Exam ENT Exam: Mucous Membranes Moist - Respiratory Exam Respiratory Exam: Decreased Breath Sounds - Cardiovascular Exam Cardiovascular Exam: +S1, +S2 - GI/Abdominal Exam GI & Abdominal Exam: Soft. absent: Tenderness Assessment and Plan - Assessment and Plan (Free Text) Plan: Assessment S/P SIRS due to acute on chronic CHF with no evidence of sepsis osteoporosis sick sinus syndrome S/P AICD and pacemaker placement 2017 S/P hysterectomy S/P cholecystectomy obesity with BMI 33 atrial fibrillation on anticoagulation Plan will continue to monitor the patient off antibiotics since she is at risk for healthcare-associated infections
[2017-09-25] MEDS: Albuterol-Ipratrop 3 mg / 0.5 (3 ml) UD IH SCH ×3 (02:39→13:22)
[2017-09-25] MEDS: Pantoprazole 40 mg EC Tab PO SCH (05:18)
[2017-09-25 07:18] LABS: PROTHROMBIN TIME 47.9 SECONDS (9.4-12.5)
[2017-09-25 07:19] LABS: INR 4.05 (0.93-1.08)
--- NOTE | 2017-09-25 07:30 | CP.PCM.PN ---
Subjective - Date & Time of Evaluation Date of Evaluation: 09/25/17 Time of Evaluation: 07:00 - Subjective Subjective: Stable in TCU. She feels OK. + ambulations. Daughter present. D/C today planned. V/S noted. PE: Lungs: few rhonchi Cor.: S1S2 Abd.: soft Ext.: mild edema Neuro.: alert Labs noted. INR= 4.05 Echo: Nl LV fx., Mild , Mild/mod MR, Mod. TR, Mod/Sev. PH Objective - Vital Signs/Intake and Output Vital Signs (last 24 hours): Temp Pulse Resp BP Pulse Ox 97.4 F L 69 18 114/66 92 L 09/24/17 17:38 09/24/17 17:38 09/24/17 17:38 09/24/17 17:48 09/24/17 17:38 - Medications Medications: Current Medications Albuterol/Ipratropium (Duoneb 3 Mg/0.5 Mg (3 Ml) Ud) 3 ml IH Q2H PRN PRN Reason: Shortness of Breath Albuterol/Ipratropium (Duoneb 3 Mg/0.5 Mg (3 Ml) Ud) 3 ml IH [id number] [facility]END[facility] TO [facility] Last Admin: 09/25/17 02:39 Dose: Not Given Atorvastatin Calcium (Lipitor) 10 mg PO DAILY [facility] Last Admin: 09/24/17 09:12 Dose: 10 mg Budesonide (Pulmicort Respules) 0.5 mg IH [id number] [facility] Last Admin: 09/24/17 19:57 Dose: Not Given Furosemide (Lasix) 40 mg PO BID [facility] Last Admin: 09/24/17 17:48 Dose: 40 mg Pantoprazole Sodium (Protonix Ec Tab) 40 mg PO 0600 [facility] Last Admin: 09/25/17 05:18 Dose: 40 mg Potassium Chloride (Klor-Con 10) 30 meq PO BID JOAO PRN Reason: Protocol Last Admin: 09/24/17 17:49 Dose: 30 meq Prednisone (Prednisone Tab) 40 mg PO DAILY [facility] Last Admin: 09/24/17 10:15 Dose: 40 mg Sodium Chloride (Mora Nasal [place]) 0 ml NS Q4 PRN PRN Reason: Nasal congestion Last Admin: 09/20/17 21:34 Dose: 2 spr Warfarin Sodium (Coumadin) 3 mg PO 1800 [facility] PRN Reason: Protocol Last Admin: 09/21/17 17:18 Dose: 3 mg - Labs Labs: 09/24/17 06:45 09/24/17 06:45 PT 47.9 SECONDS (9.4-12.5) H 09/25/17 06:15 INR 4.05 (0.93-1.08) H* 09/25/17 06:15 Assessment and Plan - Assessment and Plan (Free Text) Assessment: Dyspnea/Cough Infiltrate/Effusion Right base, R/O pneumonia CHF, diastolic Bronchitis A. Flutter with slow VR/VT episode/ICD implant/Pocket hematoma, improving S/P brief CPR with rib fx. HLD Osteoporosis Surgeries: GB, Hysterectomy,Hernia Plan: Hold warfrain. Will arrange home INR for . As per Pulm., ID, Dr. Ruggiero.
[2017-09-25] MEDS: Potassium Chloride 10 mEq ER Tab PO SCH (09:22)
--- NOTE | 2017-09-25 09:47 | PN ---
DATE: 09/25/2017 PULMONARY NOTE SUBJECTIVE: The patient appears very comfortable this morning. She is out of bed, sitting in the chair. She is not short of breath. PHYSICAL EXAMINATION: VITAL SIGNS: Last temperature recorded is 97.4, pulse is 69, respirations 18, blood pressure 114/66. Oxygen saturation on room air is 94%. HEENT: Normocephalic, atraumatic. NECK: No JVD. CARDIOVASCULAR: Systolic ejection murmur at the lower left sternal border. No S3 gallop. LUNGS: Clear bilaterally this morning. EXTREMITIES: Less edema. No cyanosis, no clubbing. Calves are nontender to palpation. GI: Abdomen is soft, nontender, nondistended. Bowel sounds are positive. SKIN: No acute rash. NEUROLOGIC: Exam limited at the present time. IMPRESSION: 1. Acute congestive heart failure. 2. Acute bronchitis. 3. Coronary artery disease, status post recent myocardial infarction. 4. Chronic cardiac arrhythmias, status post pacemaker insertion. 5. Status post recent aspiration pneumonia (last admission). PLAN: The patient appears very comfortable this morning. She is not short of breath at rest. She does state to feeling much, much better overall. I did discuss the case with daughter at length this morning. On physical exam, her lungs are now clear. In addition, the alveolar-arterial gradient is also significantly decreased. I did discuss the case with the nurse at length. The patient is for discharge later today. She will be discharged home on tapering prednisone. The family also has my card/information for a followup appointment. They fully plan on coming to see me in the office. The clinical status of this patient is significantly improved overall. Her future status/prognosis does remain somewhat guarded-due to her underlying comorbidities. I will discuss the above with Dr. Ruggiero. Vicente Nobles MD MTDKraig
[2017-09-25 11:09] VITALS: BP 100/57; PULSE 72
--- NOTE | 2017-09-25 19:50 | PN ---
DATE: 09/25/2017 SUBJECTIVE: The patient is in bed in no acute distress, nontoxic. PHYSICAL EXAMINATION: VITAL SIGNS: Temperature is 97, blood pressure is 100/50, respiratory rate of 18, heart rate of 69. HEENT: Unremarkable. NECK: Supple. LUNGS: Have decreased breath sounds. HEART: Normal S1, S2. ABDOMEN: Soft, nontender. LABORATORY EXAMINATION: Reveals a white count of 14,700, hemoglobin of 14, platelets of 204. Chemistries are noted. ASSESSMENT AND PLAN: This is an 82-year-old female status post systemic inflammatory response syndrome due to [id number] congestive heart failure, no evidence of sepsis and osteoporosis, sick sinus syndrome, status post automatic implantable cardioverter-defibrillator pacemaker placement in 08/2017, history of hysterectomy, cholecystectomy, currently now off of antibiotics. She is at risk of developing nosocomial infections. Pete Mcgarry MD
--- NOTE | 2017-09-26 05:09 | DS ---
DATE: 09/25/2017 HISTORY OF PRESENT ILLNESS: The patient is 82-year-old female who had come to the Transitional Care Unit for rehabilitation. She has done fairly well. She is walking better. She is off her antibiotics. Her pain in her chest has improved from her rib fractures. She has no complaints of any chest pain. No shortness of breath. No headaches or dizziness. PHYSICAL EXAMINATION: VITAL SIGNS: Temperature is 97.4, pulse of 69, blood pressure is 114/66, O2 saturation 92%. GENERAL: The patient is lying in bed, flat, comfortable. HEENT: No oral lesion. Anicteric sclerae. Moist mucosa. NECK: No JVD, adenopathy, or thyromegaly. CARDIOVASCULAR: S1 and S2, regular. No murmurs, rubs, or gallops. LUNGS: Clear to auscultation bilaterally. No wheeze, rales, or rhonchi. ABDOMEN: Bowel sounds are positive, soft, nontender and nondistended. EXTREMITIES: No cyanosis, clubbing or edema. ASSESSMENT: 1. Hospital-acquired pneumonia. 2. Hypokalemia, improved. 3. Congestive heart failure, secondary to a systolic dysfunction, stable. 4. Osteoporosis. 5. Atrial fibrillation, on Coumadin. 6. Right-sided pleural effusion, improved. 7. Gait dysfunction. PLAN: The patient is currently on Coumadin, this has been on hold because of the elevated INR. She is receiving potassium replacement. She is on Lasix twice a day. She is on Lipitor for dyslipidemia. She is on prednisone. The patient is on heart-healthy diet. She is now discharged home to follow up as an outpatient. . CONDITION: Stable. ACTIVITIES: Increase as tolerated. Jw Ruggiero MD
== END 2017-09-25 13:24 | disposition home health service (06) | DRG 91 ==
LOC: TRCU 21:22
PROVIDERS: ADMIT Internal Medicine Nephrology; ATTEND Internal Medicine Nephrology
PROC: F07Z9FZ Gait Training/Functional Ambulation Treatment using Assistive, Adaptive, Supportive or Protective Equipment (ICD-10-PCS; principal; 2017-09-20)
PROC: F08Z4FZ Home Management Treatment using Assistive, Adaptive, Supportive or Protective Equipment (ICD-10-PCS; 2017-09-20)
PROC: 3E0F7GC Introduction of Other Therapeutic Substance into Respiratory Tract, Via Natural or Artificial Opening (ICD-10-PCS; 2017-09-20)
DX: R26.9 Unspecified abnormalities of gait and mobility (principal); J18.9 Pneumonia, unspecified organism; I50.43 Acute on chronic combined systolic (congestive) and diastolic (congestive) heart failure; I48.92 Unspecified atrial flutter; J44.0 Chronic obstructive pulmonary disease with (acute) lower respiratory infection; M81.0 Age-related osteoporosis without current pathological fracture; I48.91 Unspecified atrial fibrillation; E87.6 Hypokalemia; E78.5 Hyperlipidemia, unspecified; I25.10 Atherosclerotic heart disease of native coronary artery without angina pectoris; J20.9 Acute bronchitis, unspecified; R79.1 Abnormal coagulation profile; T45.515A Adverse effect of anticoagulants, initial encounter; Y95 Nosocomial condition; Z79.01 Long term (current) use of anticoagulants; I25.2 Old myocardial infarction; E66.9 Obesity, unspecified; Z68.33 Body mass index [BMI] 33.0-33.9, adult; Z95.810 Presence of automatic (implantable) cardiac defibrillator; Z90.49 Acquired absence of other specified parts of digestive tract; Z90.710 Acquired absence of both cervix and uterus

== ENCOUNTER 2017-09-26 11:51 | Inpatient (IN) | payer MEDICARE ==
[2017-09-26 11:52] VITALS: PULSE 54
[2017-09-26 12:10] VITALS: BMI 32.8
--- NOTE | 2017-09-26 12:33 | ED PDOC ---
Arrival/HPI - General Chief Complaint: Syncope Time Seen by Provider: 09/26/17 12:08 Historian: Patient - History of Present Illness Narrative History of Present Illness (Text): 09/26/17 12:23 82 year old female brought in by EMS, whose past medical history consists of A fib and pacemaker, who presents to the emergency department complaining of multiple syncopal episodes prior to arrival. Patient was just discharged from hospital yesterday after a week for CHF. Patient's daughter states that patient was fine last night and this morning but took her medication without breakfast. Patient later passed out twice while getting a haircut, each for a couple of minutes. Patient's daughter called 911 during second syncopal episode. Patient denies any fever, chills, chest pain, shortness of breath, nausea, vomiting, diarrhea, urinary symptoms, back pain, neck pain, headache, dizziness, or any other complaints. PMD: Dr. De La Garza Head Mva Reactor Operator: Dr. Colunga Time/Duration: Prior to Arrival Symptom Onset: Sudden Symptom Course: Improving Activities at Onset: Light Past Medical History - Provider Review Nursing Documentation Reviewed: Yes - Infectious Disease Hx of Infectious Diseases: None - Tetanus Immunization Tetanus Immunization: Unknown - Reproductive Menopause: Yes - Cardiac Hx Cardiac Disorders: Yes Hx Congestive Heart Failure: Yes - Pulmonary Hx Chronic Obstructive Pulmonary Disease (COPD): Yes - Neurological Hx Neurological Disorder: No - HEENT Hx HEENT Disorder: Yes Other/Comment: glasses - Renal Hx Renal Disorder: No - Endocrine/Metabolic Hx Endocrine Disorders: No - Hematological/Oncological Hx Blood Disorders: No - Integumentary Hx Dermatological Disorder: No - Musculoskeletal/Rheumatological Hx Arthritis: Yes - Gastrointestinal Hx Gastrointestinal Disorders: No - Genitourinary/Gynecological Hx Reproductive Disorders: No - Psychiatric Hx Psychophysiologic Disorder: No Hx Substance Use: No - Surgical History Hx Cholecystectomy: Yes Other/Comment: HEMORRHOIDECTOMY,HYSTERECTOMY - Anesthesia Hx Anesthesia: Yes Hx Anesthesia Reactions: No Hx Malignant Hyperthermia: No - Suicidal Assessment Feels Threatened In Home Enviroment: No Family/Social History - Physician Review Nursing Documentation Reviewed: Yes Family/Social History: No Known Family HX Smoking Status: Never Smoked Hx Alcohol Use: No Hx Substance Use: No Hx Substance Use Treatment: No Allergies/Home Meds Allergies/Adverse Reactions: Allergies No Known Allergies Allergy (Verified 09/26/17 12:12) Home Medications: Home Meds Medication Instructions Recorded Confirmed Atorvastatin Calcium [Lipitor] 10 mg PO DAILY 05/11/12 09/26/17 Warfarin [Coumadin] 2 mg PO 1800 05/11/12 09/26/17 Magnesium Oxide [Mag-Ox] 400 mg PO DAILY 08/17/17 09/26/17 Potassium Chloride [Klor-Con M20] 20 meq PO DAILY 08/17/17 09/26/17 Furosemide [Lasix] 20 mg PO DAILY 09/26/17 09/26/17 Furosemide [Lasix] 20 mg PO DAILY 09/26/17 09/26/17 Metoprolol Succinate [Toprol XL] 50 mg PO BID 09/26/17 09/26/17 Review of Systems - Physician Review All systems were reviewed & negative as marked: Yes - Review of Systems Constitutional: absent: Fevers, Night Sweats Eyes: absent: Vision Changes ENT: absent: Hearing Changes Respiratory: absent: SOB, Cough Cardiovascular: Syncope. absent: Chest Pain Gastrointestinal: absent: Abdominal Pain Genitourinary Female: absent: Dysuria, Frequency Musculoskeletal: absent: Arthralgias Skin: absent: Rash, Pruritis Neurological: absent: Headache Endocrine: absent: Diaphoresis Hemo/Lymphatic: absent: Adenopathy Psychiatric: absent: Anxiety, Depression Physical Exam Vital Signs Reviewed: Yes Vital Signs Temp Pulse Resp BP Pulse Ox 09/26/17 16:32 98 F 70 19 102/56 L 99 09/26/17 13:48 70 16 69/31 L 98 09/26/17 12:01 98.2 F 70 18 82/50 L 98 Temperature: Afebrile Blood Pressure: Hypotensive Pulse: Regular Respiratory Rate: Normal Appearance: Positive for: Well-Appearing, Non-Toxic, Comfortable Pain Distress: None Finger Stick Blood Glucose: 164 - Systems Exam Head: Present: Atraumatic, Normocephalic Pupils: Present: PERRL Extroacular Muscles: Present: EOMI Conjunctiva: Present: Normal Mouth: Present: Moist Mucous Membranes Neck: Present: Normal Range of Motion Respiratory/Chest: Present: Clear to Auscultation, Good Air Exchange. No: Respiratory Distress, Accessory Muscle Use Cardiovascular: Present: Regular Rate and Rhythm, Normal S1, S2. No: Murmurs Abdomen: No: Tenderness, Distention, Peritoneal Signs Back: Present: Normal Inspection Upper Extremity: Present: Normal Inspection. No: Cyanosis, Edema Lower Extremity: Present: Normal Inspection. No: Edema Skin: Present: Warm, Dry, Normal Color. No: Rashes Medical Decision Making ED Course and Treatment: 09/26/17 12:35 Impression: 82 year old female complaining of multiple episodes of syncope prior to arrival. Plan: -- VBG -- Blood Culture -- Urine Culture -- Urinalysis -- Labs -- Reassess and disposition Prior Visits: Notes and results from previous visits were reviewed. Patient was last seen in the emergency department on 09/12/17 for shortness of breath. Patient was admitted to ICU for further evaluation. Progress Notes: EKG: Ordered, reviewed, and independently interpreted the EKG. Rate : 70 BPM Rhythm : Pacemaker Interpretation : No ST-segment elevations or depressions, no T-wave inversions, normal intervals. Comparison : No previous EKG for comparison. 09/26/17 13:09 Patient is hemocult positive. 09/26/17 14:45 After having paging hospitalist for over the past hour and receiving no responses, patient's blood pressure is rising with fluids. However I still desire to discuss case with hospitalist, considering he has seen this patient multiple times in the past. Continuing to page. 09/26/17 14:[address] Rodriguez, whom states does not take care of patient, Dr. Ruggiero does. 09/26/17 14:54 Dr. Ruggiero instructs to give patient antibiotics, and to contact hairmasters manager. No st [facility]. 09/26/17 15:30 Pairer Inspector states patient to take fluids and be taken to CT, then later admitted to ICU. - Critical Care Critical Care Minutes: 60 minutes - Lab Interpretations Microbiology Results: Microbiology Results 09/26/17 12:50 Blood-Venous Blood Culture - Preliminary NO GROWTH AFTER 3 DAYS 09/26/17 12:50 Blood-Venous Blood Culture - Preliminary NO GROWTH AFTER 3 DAYS Lab Results: 09/26/17 12:50 09/26/17 12:50 Lab Results 09/26/17 12:50: Sodium 136, Chloride 83 L, Potassium 2.8 L* D, Carbon Dioxide 39 H, Anion Gap 16, BUN 58 H, Creatinine 1.1, Est GFR ( Amer) 57, Est GFR (Non-Af Amer) 47, Random Glucose 185 H, Calcium 8.4, Total Bilirubin 1.7 H, AST 52 H D, ALT 38, Alkaline Phosphatase 94, Lactate Dehydrogenase 999 H, Total Creatine Kinase 53, Troponin I 0.47 H* D, NT-Pro-B Natriuret Pep 26237 H, Total Protein 6.9, Albumin 3.9, Globulin 3.0, Albumin/Globulin Ratio 1.3 09/26/17 12:50: pO2 34, VBG pH 7.41, VBG pCO2 64.0 H, VBG HCO3 40.6 H, VBG Total CO2 42.6 H, VBG O2 Sat (Calc) 68.4 H, VBG Base Excess 13.0 H, VBG Potassium 2.9 L, Sodium 135.0, Chloride 87.0 L, Glucose 196 H, Lactate 4.5 H*, FiO2 21.0, Venous Blood Potassium 2.9 L 09/26/17 12:50: PT 36.8 H, INR 3.13 H 09/26/17 12:50: WBC 20.3 H D, RBC 4.98, Hgb 14.6, Hct 43.0, MCV 86.3, MCH 29.3, MCHC 34.0, RDW 14.1, Plt Count 170, MPV 12.8 H, Gran % 83.0 H, Lymph % (Auto) 12.1 L, [place] % (Auto) 4.9, Eos % (Auto) 0.0 L, Baso % (Auto) 0.0, Gran # 16.81 H , Lymph # (Auto) 2.5, [place] # (Auto) 1.0 H, Eos # (Auto) 0.0, Baso # (Auto) 0.01 I have reviewed the lab results: Yes - RAD Interpretation Radiology Orders: 09/26/17 13:47 HEAD W/O CONTRAST [CT] Stat - Medication Orders Current Medication Orders: Acetaminophen (Tylenol 325mg Tab) 650 mg PO Q4H PRN PRN Reason: Pain, Mild (1-3) Last Admin: 09/30/17 11:35 Dose: 650 mg MAR Pain/Vitals Document 09/30/17 11:35 MF (Rec: 09/30/17 11:35 MF [id number]) Presence of Pain Presence of Pain Yes Location Pain Location Body Site Back Aspirin (Aspirin Chewable) 81 mg PO DAILY [facility] Last Admin: 09/27/17 11:00 Dose: Atorvastatin Calcium (Lipitor) 10 mg PO HS [facility] Last Admin: 09/29/17 21:32 Dose: 10 mg Famotidine (Pepcid) 40 mg PO HS [facility] Last Admin: 09/29/17 21:32 Dose: 40 mg Furosemide (Lasix) 40 mg PO DAILY [facility] Last Admin: 09/30/17 11:11 Dose: 40 mg [facility] Blood Pressure Document 09/30/17 11:11 (Rec: 09/30/17 11:12 [id number] Blood Pressure Blood Pressure (100/60-150/90) 120/74 Hydrocortisone (Anusol-Hc) 25 mg RC BID [facility] Last Admin: 09/30/17 10:22 Dose: 25 mg Magnesium Oxide (Mag-Ox) 400 mg PO BID [facility] Last Admin: 09/30/17 10:22 Dose: 400 mg Potassium Chloride (K-Dur 20 Meq Er Tab) 20 meq PO TID [facility] Last Admin: 09/30/17 10:22 Dose: 20 meq Vancomycin HCl (Vancocin 25 Mg/Ml (Oral Use)) 125 mg PO QID [facility] PRN Reason: Protocol Stop: 10/09/17 10:01 Last Admin: 09/30/17 11:11 Dose: 125 mg Discontinued Medications Acetaminophen (Tylenol 325mg Tab) 650 mg PO ONCE ONE Stop: 09/30/17 03:42 Last Admin: 09/30/17 03:59 Dose: 650 mg [facility] Pain/Vitals Document 09/30/17 03:59 KOPPS (Rec: 09/30/17 03:59 KOPPS [id number]) Pain Reassessment Is This A Pain ReAssessment? No Sleep Is patient sleeping during reassessment? No Presence of Pain Presence of Pain Yes Pain Scale Used Pain Scale Used Numeric Location Left, Right or Bilateral Bilateral Upper or Lower Lower Pain Location Body Site Back Description Constant Intensity 3 Scale Used Numeric Pain Behavior Moaning Aggravating Factors ADL's Changing Position Exercise/Activity Alleviating Factors Medication Re-Assess: [facility] Pain/Vitals Document 09/30/17 04:59 KOPPS (Rec: 09/30/17 05:54 KOPPS [id number] ) Pain Reassessment Is This A Pain ReAssessment? Yes Sleep Is patient sleeping during reassessment? No Presence of Pain Presence of Pain No Pain Scale Used Pain Scale Used Numeric Aspirin (Aspirin Chewable) 324 mg PO STAT STA Stop: 09/26/17 15:04 Last Admin: 09/26/17 15:17 Dose: 324 mg Sodium Chloride (Sodium Chloride 0.9%) 1,000 mls @ 999 mls/hr IV .Q1H1M STA Stop: 09/26/17 14:45 Last Admin: 09/26/17 14:02 Dose: 999 mls/hr eMAR Start Stop Document 09/26/17 14:02 HP (Rec: 09/26/17 14:03 HP [id number]) Intravenous Solution Start Date 09/26/17 Start Time 14:02 End Date 09/26/17 End time 15:02 Total Infusion Time 60 Sodium Chloride (Sodium Chloride 0.9%) 1,000 mls @ 999 mls/hr IV .Q1H1M STA Stop: 09/26/17 15:13 Last Admin: 09/26/17 14:52 Dose: 999 mls/hr eMAR Start Stop Document 09/26/17 14:52 HP (Rec: 09/26/17 14:52 HP [id number]) Intravenous Solution Start Date 09/26/17 Start Time 14:52 End Date 09/26/17 End time 15:52 Total Infusion Time 60 Vancomycin HCl (Vancomycin 1gm) 1 gm in 250 mls @ 167 mls/hr IVPB STAT STA PRN Reason: Protocol Stop: 09/26/17 16:25 Last Admin: 09/26/17 16:37 Dose: 167 mls/hr eMAR Start Stop Document 09/26/17 16:37 LA (Rec: 09/26/17 16:[address] [facility] [id number] Intravenous Solution Start Date 09/26/17 Start Time 16:37 End Date 09/26/17 Piperacillin Sod/Tazobactam Sod (Zosyn 3.375 In Ns 100ml) 100 mls @ 200 mls/hr IVPB STAT STA PRN Reason: Protocol Stop: 09/26/17 15:25 Last Admin: 09/26/17 15:17 Dose: 200 mls/hr eMAR Start Stop Document 09/26/17 15:17 HP (Rec: 09/26/17 15:18 HP [id number]) Intravenous Solution Start Date 09/26/17 Start Time 15:18 End Date 09/26/17 End time 15:48 Total Infusion Time 30 Potassium Chloride (Potassium Chloride 20 Meq/100 Ml) 20 meq in 100 mls @ 50 mls/hr IVPB Q2H JOAO Stop: 09/26/17 19:59 Last Admin: 09/27/17 05:48 Dose: 50 mls/hr eMAR Start Stop Document 09/27/17 05:48 SMA (Rec: 09/27/17 05:48 SMA [id number]) Intravenous Solution Start Date 09/26/17 Start Time 18:45 End Date 09/26/17 End time 20:45 Total Infusion Time 120 Meropenem 500 mg/ Sodium (Chloride) 50 mls @ 100 mls/hr IVPB Q8 [facility] PRN Reason: Protocol Stop: 09/26/17 22:29 Last Admin: 09/26/17 22:12 Dose: 100 mls/hr eMAR Start Stop Document 09/26/17 22:12 SMA (Rec: 09/26/17 22:13 SMA [id number]) Intravenous Solution Start Date 09/26/17 Start Time 22:15 End Date 09/26/17 End time 22:45 Total Infusion Time 30 Potassium Chloride (Potassium Chloride 10 Meq/100 Ml) 10 meq in 100 mls @ 50 mls/hr IVPB Q2H JOAO Stop: 09/27/17 02:44 Last Admin: 09/27/17 05:44 Dose: Sodium Chloride (Sodium Chloride 0.9%) 1,000 mls @ 60 mls/hr IV .[id number] [facility] Last Admin: 09/27/17 06:37 Dose: 60 mls/hr eMAR Start Stop Document 09/27/17 06:37 SMA (Rec: 09/27/17 06:38 SMA [id number]) Intravenous Solution Start Date 09/26/17 Start Time 20:45 End Date 09/27/17 End time 10:00 Total Infusion Time 795 Magnesium Sulfate 2 gm/ Sodium (Chloride) 104 mls @ 102 mls/hr IV ONCE ONE Stop: 09/27/17 09:06 Last Admin: 09/27/17 11:17 Dose: 102 mls/hr eMAR Start Stop Document 09/27/17 11:17 CLAUDY (Rec: 09/27/17 11:17 CLAUDY [id number]) Intravenous Solution Start Date 09/27/17 Start Time 11:17 End Date 09/27/17 End time 12:25 Total Infusion Time 68 Sodium Chloride (Sodium Chloride 0.9%) 1,000 mls @ 100 mls/hr IV .Q10H [facility] Last Admin: 09/28/17 01:06 Dose: 100 mls/hr eMAR Start Stop Document 09/28/17 01:06 B.P (Rec: 09/28/17 01:06 B.P [id number]) Intravenous Solution Start Date 09/27/17 Start Time 23:00 Meropenem (Merrem Iv 1 Gm Premix) 50 mls @ 100 mls/hr IVPB Q12 [facility] PRN Reason: Protocol Last Admin: 09/27/17 22:00 Dose: 100 mls/hr eMAR Start Stop Document 09/27/17 22:00 B.P (Rec: 09/27/17 22:00 B.P [id number]) Intravenous Solution Start Date 09/27/17 Start Time 22:00 Calcium Gluconate 1,000 mg/ (Sodium Chloride) 110 mls @ 110 mls/hr IVPB ONCE ONE Stop: 09/28/17 02:08 Last Admin: 09/28/17 01:31 Dose: 110 mls/hr eMAR Start Stop Document 09/28/17 01:31 B.P (Rec: 09/28/17 01:31 B.P [id number]) Intravenous Solution Start Date 09/28/17 Start Time 01:31 Magnesium Sulfate 1 gm/ Sodium (Chloride) 102 mls @ 102 mls/hr IVPB ONCE ONE Stop: 09/28/17 03:06 Last Admin: 09/28/17 02:35 Dose: 102 mls/hr eMAR Start Stop Document 09/28/17 02:35 B.P (Rec: 09/28/17 02:35 B.P [id number]) Intravenous Solution Start Date 09/28/17 Start Time 02:35 Meropenem (Merrem Iv 1 Gm Premix) 50 mls @ 100 mls/hr IVPB Q8 [facility] PRN Reason: Protocol Last Admin: 09/29/17 06:32 Dose: 100 mls/hr eMAR Start Stop Document 09/29/17 06:32 CDL (Rec: 09/29/17 06:32 CDL [id number]) Intravenous Solution Start Date 09/29/17 Start Time 06:32 End Date 09/29/17 End time 07:02 Total Infusion Time 30 Pantoprazole Sodium (Protonix Inj) 40 mg IVP Q12 [facility]AO Pantoprazole Sodium (Protonix Inj) 40 mg IVP DAILY [facility] Potassium Chloride (K-Dur 20 Meq Er Tab) 20 meq PO STAT STA Stop: 09/26/17 14:29 Last Admin: 09/26/17 14:53 Dose: 20 meq Potassium Chloride (Potassium Chloride Oral Soln) 40 meq PO ONCE ONE Stop: 09/26/17 22:23 Last Admin: 09/27/17 00:30 Dose: 40 meq Potassium Chloride (K-Dur 20 Meq Er Tab) 40 meq PO ONCE ONE Stop: 09/27/17 07:59 Last Admin: 09/27/17 08:30 Dose: 40 meq Potassium Chloride (K-Dur 20 Meq Er Tab) 40 meq PO ONCE ONE Stop: 09/27/17 13:01 Last Admin: 09/27/17 14:41 Dose: 40 meq Potassium Chloride (K-Dur 20 Meq Er Tab) 40 meq PO ONCE ONE Stop: 09/28/17 01:03 Last Admin: 09/28/17 01:15 Dose: 40 meq Potassium Chloride (K-Dur 20 Meq Er Tab) 20 meq PO ONCE ONE Stop: 09/28/17 01:04 Last Admin: 09/28/17 01:15 Dose: 20 meq Potassium Chloride (K-Dur 20 Meq Er Tab) 40 meq PO ONCE ONE Stop: 09/28/17 07:01 Last Admin: 09/28/17 11:22 Dose: 40 meq Potassium Chloride (K-Dur 20 Meq Er Tab) 20 meq PO BID [facility] Last Admin: 09/29/17 18:08 Dose: 20 meq Potassium Phos/Sodium Phos (Neutra-Phos) 1 pkt PO ONCE ONE Stop: 09/28/17 07:49 Last Admin: 09/28/17 11:22 Dose: 1 pkt Warfarin Sodium (Coumadin) 2 mg PO 1800 [facility] PRN Reason: Protocol Last Admin: 09/28/17 17:40 Dose: Warfarin Sodium (Coumadin) 3 mg PO 1800 [facility] PRN Reason: Protocol Last Admin: 09/29/17 18:07 Dose: 3 mg Warfarin Sodium (Coumadin) 5 mg PO ONCE ONE PRN Reason: Protocol Stop: 09/30/17 10:01 Last Admin: 09/30/17 10:24 Dose: 5 mg - Scribe Statement The provider has reviewed the documentation as recorded by the Landon Pappas Provider Scribe Attestation: All medical record entries made by the Sylviaibserge were at my direction and personally dictated by me. I have reviewed the chart and agree that the record accurately reflects my personal performance of the history, physical exam, medical decision making, and the department course for this patient. I have also personally directed, reviewed, and agree with the discharge instructions and disposition. Disposition/Present on Arrival - Present on Arrival Any Indicators Present on Arrival: No History of DVT/PE: No History of Uncontrolled Diabetes: No Urinary Catheter: No History of Decub. Ulcer: No History Surgical Site Infection Following: None - Disposition Have Diagnosis and Disposition been Completed?: Yes Diagnosis: NSTEMI (non-ST elevated myocardial infarction) Disposition: HOSPITALIZED Disposition Time: 17:30 Patient Plan: Admission, ICU Condition: CRITICAL
[2017-09-26 13:06] LABS: BASO # 0.01 K/mm3 (0.0-2.0); GRAN # 16.81 (1.4-6.5); HEMOGLOBIN 14.6 g/dL (12.0-16.0); LYMPH # 2.5 (1.2-3.4); LYMPH % 12.1 % (22.0-35.0); MEAN CELL VOLUME 86.3 fl (80.0-105.0); MEAN CORPUSCULAR HEMOGLOBIN 29.3 pg (25.0-35.0); MEAN PLATELET VOLUME 12.8 fl (7.0-11.0); MONO % 4.9 % (1.0-6.0); RBC 4.98 10^6/uL (3.5-6.1); RED CELL DISTRIBUTION WIDTH 14.1 % (11.5-14.5); WHITE BLOOD COUNT 20.3 10^3/ul (4.5-11.0)
[2017-09-26 13:09] LABS: VENOUS BLOOD GAS PO2 34 mm/Hg (30-55); VENOUS BLOOD PH 7.41 (7.32-7.43)
[2017-09-26 13:18] LABS: PROTHROMBIN TIME 36.8 SECONDS (9.4-12.5)
[2017-09-26 13:19] LABS: INR 3.13 (0.93-1.08)
[2017-09-26] MEDS ORDERED: Sodium Chloride 0.9% 1,000 ML IV STA ×2 (13:45→14:13)
[2017-09-26 14:24] LABS: ALB/GLOB RATIO 1.3 (1.1-1.8); ALBUMIN 3.9 g/dL (3.0-4.8); CALCIUM 8.4 mg/dL (8.4-10.5); TROPONIN I 0.47 ng/mL
[2017-09-26] MEDS ORDERED: Potassium Chloride 20 mEq ER Tab PO STA (14:28)
[2017-09-26] MEDS ORDERED: Piperacillin/Tazobact 3.375 gm 100 ML IVPB STA (14:56)
[2017-09-26] MEDS ORDERED: Vancomycin 1gm in NS 250ml 1 GM/250 ML BAG IVPB STA (14:56)
--- NOTE | 2017-09-26 16:15 | CP.PCM.CON ---
<Irwin Layneja - Last Filed: 09/26/17 16:20> History of Present Illness - History of Present Illness History of Present Illness: Graciela Layne, PGY1, Critical Care consult Note for Dr Calhoun: CC: syncopal episodes 82 year old female with PMH afib on Coumadin, pacemaker, HTN, HLD, presents for syncopal episodes today. As per daughter, pt was doing well last night. This morning, pt took medication without breakfast. While she was at her salon, she passed out twice, each for a couple of minutes. Pt was just [place] [facility] [place] after an admission for CHF exacerbation. Pt denies fever, chills , cp, sob, cough, dysuria/urinary symptoms, nausea, vomiting, abdominal pain, emesis, excessive hematochezia, melena, leg swelling. Pt has hemorrhoids, and states that she sometimes has mild bleeding. In ED, pt afebrile with BP 69/31, given 2 L NS bolus, with BP in 90s/40s. Wbc 20.3 (likely reactive from steroids in the hospital), inr 3.13, lactate 4.5, K 2.8, AST mildly elevated 52 (prev 40), LDH 999. trop 0.47. BNP 136,000. EKG showed no ST/T wave abnormalities. Given ASA 325, Kdur 20, Vanco and zosyn in ED. 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 De La Garza Mash Grinder: Dr. Colunga Review of Systems - Review of Systems All systems: reviewed and no additional remarkable complaints except Review of Systems: as per HPI Past Patient History - Infectious Disease Hx of Infectious Diseases: None - Tetanus Immunizations Tetanus Immunization: Unknown - Past Medical History & Family History Past Medical History?: Yes - Past Social History Smoking Status: Never Smoked - CARDIAC Hx Cardiac Disorders: Yes Hx Congestive Heart Failure: Yes - PULMONARY Hx Chronic Obstructive Pulmonary Disease (COPD): Yes - NEUROLOGICAL Hx Neurological Disorder: No - HEENT Hx HEENT Problems: Yes Other/Comment: glasses - RENAL Hx Chronic Kidney Disease: No - ENDOCRINE/METABOLIC Hx Endocrine Disorders: No - HEMATOLOGICAL/ONCOLOGICAL Hx Blood Disorders: No - INTEGUMENTARY Hx Dermatological Problems: No - MUSCULOSKELETAL/RHEUMATOLOGICAL Hx Arthritis: Yes - GASTROINTESTINAL Hx Gastrointestinal Disorders: No - GENITOURINARY/GYNECOLOGICAL Hx Reproductive Disorders: No - PSYCHIATRIC Hx Psychophysiologic Disorder: No Hx Substance Use: No - SURGICAL HISTORY Hx Cholecystectomy: Yes Other/Comment: HEMORRHOIDECTOMY,HYSTERECTOMY - ANESTHESIA Hx Anesthesia: Yes Hx Anesthesia Reactions: No Hx Malignant Hyperthermia: No Meds Allergies/Adverse Reactions: Allergies Allergy/AdvReac Type Severity Reaction Status Date / Time No Known Allergies Allergy Verified 09/26/17 12:12 - Medications Medications: Current Medications Vancomycin HCl (Vancomycin 1gm) 1 gm in 250 mls @ 167 mls/hr IVPB STAT STA PRN Reason: Protocol Stop: 09/26/17 16:25 Physical Exam - Constitutional Appears: Non-toxic, Older Than Stated Age, Chronically Ill - Head Exam Head Exam: ATRAUMATIC, NORMOCEPHALIC - Eye Exam Eye Exam: EOMI, PERRL. absent: Conjunctival injection, Nystagmus, Scleral icterus Pupil Exam: NORMAL ACCOMODATION, PERRL. absent: Fixed, Irregular, Miosis, Mydriatic, Unequal - ENT Exam ENT Exam: Mucous Membranes Dry - Neck Exam Neck exam: Positive for: Full Rom - Respiratory Exam Respiratory Exam: Clear to Auscultation Bilateral, NORMAL BREATHING PATTERN. absent: Accessory Muscle Use, Chest Wall Tenderness, Decreased Breath Sounds, Prolonged Expiratory Phase, Rales, Rhonchi, Wheezes, Respiratory Distress, Stridor - Cardiovascular Exam Cardiovascular Exam: RRR, +S1, +S2. absent: Systolic Murmur - GI/Abdominal Exam GI & Abdominal Exam: Normal Bowel Sounds, Soft. absent: Distended, Firm, Guarding, Hypoactive Bowel Sounds, Mass, Organomegaly, Pulsatile Mass, Rebound, Rigid, Tenderness - Extremities Exam Extremities exam: Positive for: normal capillary refill, normal inspection, pedal edema (1+ bilaterally), pedal pulses present. Negative for: calf tenderness, joint swelling - Back Exam Back exam: NORMAL INSPECTION - Neurological Exam Neurological exam: Alert, Oriented x3 - Psychiatric Exam Psychiatric exam: Normal Affect, Normal Mood - Skin Skin Exam: Dry, Normal Color, Warm Results - Vital Signs Recent Vital Signs: Last Vital Signs Temp 98.2 F 09/26/17 12:01 Pulse 70 09/26/17 13:48 Resp 16 09/26/17 13:48 BP 69/31 L 09/26/17 13:48 Pulse Ox 98 09/26/17 13:48 - Labs Result Diagrams: 09/26/17 12:50 09/26/17 12:50 Labs: Laboratory Results - last 24 hr 09/26/17 09/26/17 09/26/17 12:50 12:50 12:50 WBC 20.3 H D RBC 4.98 Hgb 14.6 Hct 43.0 MCV 86.3 MCH 29.3 MCHC 34.0 RDW 14.1 Plt Count 170 MPV 12.8 H Gran % 83.0 H Lymph % (Auto) 12.1 L Fallon % (Auto) 4.9 Eos % (Auto) 0.0 L Baso % (Auto) 0.0 Gran # 16.81 H Lymph # (Auto) 2.5 Fallon # (Auto) 1.0 H Eos # (Auto) 0.0 Baso # (Auto) 0.01 PT 36.8 H INR 3.13 H pO2 34 VBG pH 7.41 VBG pCO2 64.0 H VBG HCO3 40.6 H VBG Total CO2 42.6 H VBG O2 Sat (Calc) 68.4 H VBG Base Excess 13.0 H VBG Potassium 2.9 L Sodium 135.0 Chloride 87.0 L Glucose 196 H Lactate 4.5 H* FiO2 21.0 Potassium Carbon Dioxide Anion Gap BUN Creatinine Est GFR ( Amer) Est GFR (Non-Af Amer) Random Glucose Calcium Total Bilirubin AST ALT Alkaline Phosphatase Lactate Dehydrogenase Total Creatine Kinase Troponin I NT-Pro-B Natriuret Pep Total Protein Albumin Globulin Albumin/Globulin Ratio Venous Blood Potassium 2.9 L 09/26/17 12:50 WBC RBC Hgb Hct MCV MCH MCHC RDW Plt Count MPV Gran % Lymph % (Auto) Fallon % (Auto) Eos % (Auto) Baso % (Auto) Gran # Lymph # (Auto) Fallon # (Auto) Eos # (Auto) Baso # (Auto) PT INR pO2 VBG pH VBG pCO2 VBG HCO3 VBG Total CO2 VBG O2 Sat (Calc) VBG Base Excess VBG Potassium Sodium 136 Chloride 83 L Glucose Lactate FiO2 Potassium 2.8 L* D Carbon Dioxide 39 H Anion Gap 16 BUN 58 H Creatinine 1.1 Est GFR ( Amer) 57 Est GFR (Non-Af Amer) 47 Random Glucose 185 H Calcium 8.4 Total Bilirubin 1.7 H AST 52 H D ALT 38 Alkaline Phosphatase 94 Lactate Dehydrogenase 999 H Total Creatine Kinase 53 Troponin I 0.47 H* D NT-Pro-B Natriuret Pep 12934 H Total Protein 6.9 Albumin 3.9 Globulin 3.0 Albumin/Globulin Ratio 1.3 Venous Blood Potassium Assessment & Plan - Assessment and Plan (Free Text) Assessment: 82 year old female with PMH afib on Coumadin, symptomatic bradycardia s/p ICD ( 08/2017), osteoporosis, HTN, HLD, presents for syncopal episodes, admitted to ICU for hypotension: Neuro: -AAOx3 -continue to monitor for mental status changes Cardio: - INR 3.13, will hold Coumadin - Syncopal episodes 2/2 pacemaker malfunction vs medication induced (lasix) vs orthostatic vs NSTEMI vs neurocardiogenic - BP on low side. 2L NS bolus given in ED. BP 90s/50s. - Dr Rodriguez consulted. F/u recs. - troponin elevated 0.47. will trend. - eCHO 09/2017: EF 50%. Mod aortic valve stenosis. Mild to mod MR. Mod-severe pulm HTN. - EKG HR 70, pacemaker. No ST-segment elevations or depressions, no T-wave inversions, normal intervals. - ASA 325 mg po given iN ED. ASA 81 mg daily. - Will hold home BB, MARCELL-i, lasix due to low BP - home lipitor - Maintain MAP>65 - O2 prn Pulm: - CXR - Saturating well on NC - maintain SpO2 above 95% ID: - leukocytosis (likely reactive from steroids) - CXR, UA, urine culture, blood culture - Given Vanco and Zosyn in ED Renal: - Stable BUN/Cr - Hypokalemic. Repleted - Daily cmp - replete electrolytes as needed Endo: - Maintain euglycemia GI: - protonix - HHD DVT ppx: SCDs GI PPX: protonix Case seen and discussed with Dr Calhoun. - Date & Time Date: 09/26/17 Time: 16:32 <Mervin Calhoun - Last Filed: 09/26/17 16:41> Meds - Medications Medications: Current Medications Aspirin (Aspirin Chewable) 81 mg PO DAILY JOAO Atorvastatin Calcium (Lipitor) 10 mg PO DAILY JOAO Potassium Chloride (Potassium Chloride 20 Meq/100 Ml) 20 meq in 100 mls @ 50 mls/hr IVPB Q2H JOAO Stop: 09/26/17 19:59 Sodium Chloride (Sodium Chloride 0.9%) 1,000 mls @ 100 mls/hr IV .Q10H JOAO Pantoprazole Sodium (Protonix Inj) 40 mg IVP Q12 JOAO Results - Vital Signs Recent Vital Signs: Last Vital Signs Temp 98 F 09/26/17 16:32 Pulse 70 09/26/17 16:32 Resp 19 09/26/17 16:32 BP 102/56 L 09/26/17 16:32 Pulse Ox 99 09/26/17 16:32 - Labs Result Diagrams: 09/26/17 12:50 09/26/17 12:50 Assessment & Plan - Assessment and Plan (Free Text) Assessment: Patient seen and examined with resident, agree with note with following additions/exceptions: Patient is 82yo female with PMhx of CHF s/p AICD, Afib on Coumadin, HTN, HLD, presented with multiple episodes of syncope, and hypotension. Currently the patient is afebriule, HD stable, SBP 80-95, doing well, AAOx3, NAD, s/p 1.5L NS bolus Clinically is dry on exam Lungs CTABL Awaiting CT head Syncope CHF Afib Dehydration Hypotension Severe Sepsis Recommend: - supp o2 as needed - panculture, UCx, BCx, Procal - ID eval - Broad spectrum abx, Vanco, Merrem - IVF hydration, monitor resp status - HOLD Lasix - HOLD BB, ACEI - Cardiology eval - AICD interrogation - replete K - FS control - monitor HH - Hold Coumadin, INR>3 - DVT ppx, INR>3 - GI ppx - Monitor in MICU Critical care time 30 minutes
[2017-09-26] MEDS ORDERED: Sodium Chloride 0.9% 1,000 ML IV SCH (16:45)
[2017-09-26 17:00] LABS: VENOUS BLOOD GAS BASE EXCESS 10.3 mmol/L (0.0-2.0); VENOUS BLOOD GAS PO2 69 mm/Hg (30-55); VENOUS BLOOD PH 7.42 (7.32-7.43)
--- NOTE | 2017-09-26 18:06 | CT ---
PROCEDURE: CT HEAD WITHOUT CONTRAST. HISTORY: Syncope COMPARISON: None available. TECHNIQUE: Axial computed tomography images were obtained through the head/brain without intravenous contrast. Radiation dose: Total exam DLP = 819.28 mGy-cm. This CT exam was performed using one or more of the following dose reduction techniques: Automated exposure control, adjustment of the mA and/or kV according to patient size, and/or use of iterative reconstruction technique. FINDINGS: HEMORRHAGE: No intracranial hemorrhage. BRAIN: There is a calcified mass at the right aspect of the interhemispheric falx measures 2 centimeters likely represent calcified meningioma. Moderate atrophy is noted. Moderate to extensive white matter changes are also noted. VENTRICLES: Unremarkable. No hydrocephalus. CALVARIUM: Unremarkable. PARANASAL SINUSES: Unremarkable as visualized. No significant inflammatory changes. MASTOID AIR CELLS: Unremarkable as visualized. No inflammatory changes. OTHER FINDINGS: None. IMPRESSION: No evidence of acute intracranial hemorrhage mass effect or midline shift. 2 centimeter calcified lesion at the right aspect of the interhemispheric falx likely represent calcified meningioma. Atrophy and white matter changes likely represent chronic microvascular ischemic disease.
[2017-09-26] MEDS: Meropenem 500 MG in Sodium Chloride 0.9% 50 ML IVPB SCH ×2 (18:09→22:12)
--- NOTE | 2017-09-26 18:24 | CARD ---
APPROVED REPORT EKG Measurement Heart [id number] <Conclusion> Electronic ventricular pacemaker
[2017-09-26 21:52] LABS: PH,URINE 6.5 (4.7-8.0); URINE BILIRUBIN NEGATIVE (NEGATIVE); URINE BLOOD TRACE-INTACT (NEGATIVE); URINE GLUCOSE (UA) NEGATIVE (NEGATIVE); URINE LEUKOCYTE ESTERASE NEGATIVE Leu/uL (NEGATIVE); URINE PROTEIN TRACE mg/dL (<30 mg/dL); URINE UROBILINOGEN 0.2 E.U./dL (<1 E.U./dL)
[2017-09-26 21:58] LABS: URINE APPEARANCE CLEAR (CLEAR); URINE COLOR YELLOW (YELLOW)
[2017-09-26 22:07] LABS: URINE BACTERIA FEW (NEG); URINE RBC NEGATIVE /hpf (0-2)
[2017-09-26] MEDS ORDERED: Potassium Chloride 40 mEq/30 ml LIQ UD PO ONE (22:22)
[2017-09-27] MEDS ORDERED: Sodium Chloride 0.9% 1,000 ML IV SCH ×2 (06:30→08:15)
[2017-09-27 06:43] LABS: BASO # 0.01 K/mm3 (0.0-2.0); BASO % 0.1 % (0.0-3.0); EOS # 0.2 (0.0-0.7); EOS % 1.3 % (1.5-5.0); GRAN # 12.94 (1.4-6.5); GRAN % 86.7 % (50.0-68.0); LYMPH # 1.2 (1.2-3.4); LYMPH % 8.1 % (22.0-35.0); MEAN CELL VOLUME 86.9 fl (80.0-105.0); MEAN CORPUSCULAR HEMOGLOBIN 28.5 pg (25.0-35.0); MEAN CORPUSCULAR HGB CONC 32.8 g/dl (31.0-37.0); MONO # 0.6 (0.1-0.6); MONO % 3.8 % (1.0-6.0); RBC 4.11 10^6/uL (3.5-6.1); RED CELL DISTRIBUTION WIDTH 14.2 % (11.5-14.5); WHITE BLOOD COUNT 14.9 10^3/ul (4.5-11.0)
[2017-09-27 06:48] LABS: HEMOGLOBIN 11.7 g/dL (12.0-16.0)
[2017-09-27 07:00] LABS: INR 2.99 (0.93-1.08); PARTIAL THROMBOPLASTIN TIME 39.8 Seconds (25.1-36.5); PROTHROMBIN TIME 35.2 SECONDS (9.4-12.5)
[2017-09-27 07:38] LABS: ALB/GLOB RATIO 1.1 (1.1-1.8); ALBUMIN 2.8 g/dL (3.0-4.8); ALT/SGPT 34 U/L (7-56); AST/SGOT 41 U/L (14-36); BLOOD UREA NITROGEN 42 mg/dL (7-21); CALCIUM 7.5 mg/dL (8.4-10.5); GFR AFRICAN-AMERICAN > 60; GFR NON-AFRICAN AMERICAN 53
[2017-09-27] MEDS ORDERED: Potassium Chloride 20 mEq ER Tab PO ONE ×2 (07:58→13:00)
[2017-09-27] MEDS ORDERED: Magnesium Sulfate 2 GM in Sodium Chloride 0.9% 100 ML IV ONE (08:05)
--- NOTE | 2017-09-27 08:12 | RAD ---
HISTORY: syncope, infection COMPARISON: 09/17/2017 FINDINGS: LUNGS: Platelike atelectasis at the right lung base. PLEURA: No significant pleural effusion identified, no pneumothorax apparent. CARDIOVASCULAR: Moderate cardiomegaly OSSEOUS STRUCTURES: No significant abnormalities. VISUALIZED UPPER ABDOMEN: Normal. OTHER FINDINGS: Pacemaker IMPRESSION: No active disease.
--- NOTE | 2017-09-27 08:35 | CP.CCUPN ---
<Graciela Layne - Last Filed: 09/27/17 10:22> CCU Subjective - Physician Review Subjective (Free Text): 09/27/17 08:33 Patient seen and examined at bedside. No acute events overnight. Pt reports suprapubic pain. Denies dysuria, hematuria, fever, chills, nausea, vomiting, cp , sob, leg swelling. Critical Care Time Spent (in minutes): 35 CCU Objective - Physical Exam Head: Positive for: Atraumatic, Normocephalic Pupils: Positive for: PERRL Extroacular Muscles: Positive for: EOMI Conjunctiva: Positive for: Normal Mouth: Positive for: Moist Mucous Membranes Neck: Positive for: Normal Range of Motion Respiratory/Chest: Positive for: Clear to Auscultation, Good Air Exchange. Negative for: Respiratory Distress, Accessory Muscle Use Cardiovascular: Positive for: Regular Rate and Rhythm, Normal S1, S2. Negative for: Murmurs Abdomen: Positive for: Tenderness (mild suprapubic and epigastric tenderness to palpation), Normal Bowel Sounds. Negative for: Distention, Peritoneal Signs, Rebound, Guarding Back: Positive for: Normal Inspection Upper Extremity: Positive for: Normal Inspection. Negative for: Cyanosis, Edema Lower Extremity: Positive for: Normal Inspection, Edema (1+ edema bilaterally), NORMAL PULSES, Capillary Refill < 2 s. Negative for: CALF TENDERNESS Neurological: Positive for: GCS=15, CN II-XII Intact, Speech Normal Skin: Positive for: Warm, Dry, Normal Color. Negative for: Rashes Psychiatric: Positive for: Alert, Oriented x 3 - Medications Active Medications: Active Medications Generic Name Dose Route Start Last Admin Trade Name Amariq PRN Reason Stop Dose Admin Aspirin 81 mg 09/27/17 10:00 Aspirin Chewable PO DAILY [facility] Atorvastatin Calcium 10 mg 09/27/17 22:00 Lipitor PO HS JOAO Magnesium Sulfate 2 gm/ Sodium 104 mls @ 102 mls/hr 09/27/17 08:05 Chloride IV 09/27/17 09:06 ONCE ONE Sodium Chloride 1,000 mls @ 100 mls/hr 09/27/17 08:15 Sodium Chloride 0.9% IV .Q10H JOAO Magnesium Oxide 400 mg 09/27/17 10:00 Mag-Ox PO BID JOAO Pantoprazole Sodium 40 mg 09/27/17 10:00 Protonix Inj IVP DAILY JOAO Potassium Chloride 40 meq 09/27/17 13:00 K-Dur 20 Meq Er Tab PO 09/27/17 13:01 ONCE ONE - Patient Studies Lab Studies: Lab Studies 09/27/17 09/27/17 09/27/17 Range/Units 06:00 06:00 06:00 WBC 14.9 H D (4.5-11.0) 10^3/ul RBC 4.11 (3.5-6.1) 10^6/uL Hgb 11.7 L D (12.0-16.0) g/dL Hct 35.7 L (36.0-48.0) % MCV 86.9 (80.0-105.0) fl MCH 28.5 (25.0-35.0) pg MCHC 32.8 (31.0-37.0) g/dl RDW 14.2 (11.5-14.5) % Plt Count 121 (120.0-450.0) 10^3/uL MPV 12.0 H (7.0-11.0) fl Gran % 86.7 H (50.0-68.0) % Lymph % (Auto) 8.1 L (22.0-35.0) % Nobles % (Auto) 3.8 (1.0-6.0) % Eos % (Auto) 1.3 L (1.5-5.0) % Baso % (Auto) 0.1 (0.0-3.0) % Gran # 12.94 H (1.4-6.5) Lymph # (Auto) 1.2 (1.2-3.4) Nobles # (Auto) 0.6 (0.1-0.6) Eos # (Auto) 0.2 (0.0-0.7) Baso # (Auto) 0.01 (0.0-2.0) K/mm3 PT 35.2 H (9.4-12.5) SECONDS INR 2.99 H (0.93-1.08) APTT 39.8 H (25.1-36.5) Seconds pO2 (30-55) mm/Hg VBG pH (7.32-7.43) VBG pCO2 (40-60) VBG HCO3 (21-28) mmol/l VBG Total CO2 (22-28) mmol.L VBG O2 Sat (Calc) (40-65) % VBG Base Excess (0.0-2.0) mmol/L VBG Potassium (3.6-5.2) mmol/L Sodium 139 (132-148) mmol/L Chloride 97 L (98-107) mmol/L Glucose (65-105) mg/dl Lactate (0.7-2.1) mmol/L FiO2 % Potassium 2.9 L* (3.6-5.0) mmol/L Carbon Dioxide 36 H (21-33) mmol/L Anion Gap 9 L (10-20) BUN 42 H (7-21) mg/dL Creatinine 1.0 (0.7-1.2) mg/dl Est GFR ( Amer) > 60 Est GFR (Non-Af Amer) 53 Random Glucose 91 (70-110) mg/dL Calcium 7.5 L (8.4-10.5) mg/dL Phosphorus 3.7 (2.5-4.5) mg/dL Magnesium 1.2 L (1.7-2.2) mg/dL Total Bilirubin 1.4 H (0.2-1.3) mg/dL AST 41 H D (14-36) U/L ALT 34 (7-56) U/L Alkaline Phosphatase 65 (38-126) U/L Total Protein 5.4 L (5.8-8.3) g/dL Albumin 2.8 L (3.0-4.8) g/dL Globulin 2.6 gm/dL Albumin/Globulin Ratio 1.1 (1.1-1.8) Venous Blood Potassium (3.6-5.2) mmol/L Urine Color (YELLOW) Urine Appearance (CLEAR) Urine pH (4.7-8.0) Ur Specific Magnolia (1.005-1.035) Urine Protein (<30 mg/dL) mg/dL Urine Glucose (UA) (NEGATIVE) mg/dL Urine Ketones (NEGATIVE) mg/dL Urine Blood (NEGATIVE) Urine Nitrate (NEGATIVE) Urine Bilirubin (NEGATIVE) Urine Urobilinogen (<1 E.U./dL) E.U./dL Ur Leukocyte Esterase (NEGATIVE) Jackie/uL Urine RBC (0-2) /hpf Urine WBC (0-6) /hpf Ur Epithelial Cells (0-5) /hpf Urine Bacteria (NEG) Blood Type Antibody Screen BBK History Checked 09/26/17 09/26/17 09/26/17 Range/Units 21:30 16:51 16:33 WBC (4.5-11.0) 10^3/ul RBC (3.5-6.1) 10^6/uL Hgb (12.0-16.0) g/dL Hct (36.0-48.0) % MCV (80.0-105.0) fl MCH (25.0-35.0) pg MCHC (31.0-37.0) g/dl RDW (11.5-14.5) % Plt Count (120.0-450.0) 10^3/uL MPV (7.0-11.0) fl Gran % (50.0-68.0) % Lymph % (Auto) (22.0-35.0) % Nobles % (Auto) (1.0-6.0) % Eos % (Auto) (1.5-5.0) % Baso % (Auto) (0.0-3.0) % Gran # (1.4-6.5) Lymph # (Auto) (1.2-3.4) Nobles # (Auto) (0.1-0.6) Eos # (Auto) (0.0-0.7) Baso # (Auto) (0.0-2.0) K/mm3 PT (9.4-12.5) SECONDS INR (0.93-1.08) APTT (25.1-36.5) Seconds pO2 69 H (30-55) mm/Hg VBG pH 7.42 (7.32-7.43) VBG pCO2 57.0 (40-60) VBG HCO3 37.0 H (21-28) mmol/l VBG Total CO2 38.7 H (22-28) mmol.L VBG O2 Sat (Calc) 96.4 H (40-65) % VBG Base Excess 10.3 H (0.0-2.0) mmol/L VBG Potassium 2.2 L* (3.6-5.2) mmol/L Sodium 136.0 (132-148) mmol/L Chloride 95.0 L (98-107) mmol/L Glucose 141 H (65-105) mg/dl Lactate 1.8 (0.7-2.1) mmol/L FiO2 21.0 % Potassium (3.6-5.0) mmol/L Carbon Dioxide (21-33) mmol/L Anion Gap (10-20) BUN (7-21) mg/dL Creatinine (0.7-1.2) mg/dl Est GFR ( Amer) Est GFR (Non-Af Amer) Random Glucose (70-110) mg/dL Calcium (8.4-10.5) mg/dL Phosphorus (2.5-4.5) mg/dL Magnesium (1.7-2.2) mg/dL Total Bilirubin (0.2-1.3) mg/dL AST (14-36) U/L ALT (7-56) U/L Alkaline Phosphatase (38-126) U/L Total Protein (5.8-8.3) g/dL Albumin (3.0-4.8) g/dL Globulin gm/dL Albumin/Globulin Ratio (1.1-1.8) Venous Blood Potassium 2.2 L* (3.6-5.2) mmol/L Urine Color Yellow (YELLOW) Urine Appearance Clear (CLEAR) Urine pH 6.5 (4.7-8.0) Ur Specific Magnolia 1.010 (1.005-1.035) Urine Protein Trace H (<30 mg/dL) mg/dL Urine Glucose (UA) Negative (NEGATIVE) mg/dL Urine Ketones Negative (NEGATIVE) mg/dL Urine Blood Trace-intact H (NEGATIVE) Urine Nitrate Negative (NEGATIVE) Urine Bilirubin Negative (NEGATIVE) Urine Urobilinogen 0.2 (<1 E.U./dL) E.U./dL Ur Leukocyte Esterase Negative (NEGATIVE) Jackei/uL Urine RBC Negative (0-2) /hpf Urine WBC 2 - 5 (0-6) /hpf Ur Epithelial Cells 1 - 3 (0-5) /hpf Urine Bacteria Few (NEG) Blood Type O POSITIVE Antibody Screen Negative BBK History Checked Patient has bt Laboratory Results - last 24 hr 09/26/17 09/26/17 09/26/17 16:33 16:51 21:30 WBC RBC Hgb Hct MCV MCH MCHC RDW Plt Count MPV Gran % Lymph % (Auto) Nobles % (Auto) Eos % (Auto) Baso % (Auto) Gran # Lymph # (Auto) Nobles # (Auto) Eos # (Auto) Baso # (Auto) PT INR APTT pO2 69 H VBG pH 7.42 VBG pCO2 57.0 VBG HCO3 37.0 H VBG Total CO2 38.7 H VBG O2 Sat (Calc) 96.4 H VBG Base Excess 10.3 H VBG Potassium 2.2 L* Sodium 136.0 Chloride 95.0 L Glucose 141 H Lactate 1.8 FiO2 21.0 Potassium Carbon Dioxide Anion Gap BUN Creatinine Est GFR ( Amer) Est GFR (Non-Af Amer) Random Glucose Calcium Phosphorus Magnesium Total Bilirubin AST ALT Alkaline Phosphatase Total Protein Albumin Globulin Albumin/Globulin Ratio Venous Blood Potassium 2.2 L* Urine Color Yellow Urine Appearance Clear Urine pH 6.5 Ur Specific Magnolia 1.010 Urine Protein Trace H Urine Glucose (UA) Negative Urine Ketones Negative Urine Blood Trace-intact H Urine Nitrate Negative Urine Bilirubin Negative Urine Urobilinogen 0.2 Ur Leukocyte Esterase Negative Urine RBC Negative Urine WBC 2 - 5 Ur Epithelial Cells 1 - 3 Urine Bacteria Few Blood Type O POSITIVE Antibody Screen Negative BBK History Checked Patient has bt 09/27/17 09/27/17 09/27/17 06:00 06:00 06:00 WBC 14.9 H D RBC 4.11 Hgb 11.7 L D Hct 35.7 L MCV 86.9 MCH 28.5 MCHC 32.8 RDW 14.2 Plt Count 121 MPV 12.0 H Gran % 86.7 H Lymph % (Auto) 8.1 L Nobles % (Auto) 3.8 Eos % (Auto) 1.3 L Baso % (Auto) 0.1 Gran # 12.94 H Lymph # (Auto) 1.2 Nobles # (Auto) 0.6 Eos # (Auto) 0.2 Baso # (Auto) 0.01 PT 35.2 H INR 2.99 H APTT 39.8 H pO2 VBG pH VBG pCO2 VBG HCO3 VBG Total CO2 VBG O2 Sat (Calc) VBG Base Excess VBG Potassium Sodium 139 Chloride 97 L Glucose Lactate FiO2 Potassium 2.9 L* Carbon Dioxide 36 H Anion Gap 9 L BUN 42 H Creatinine 1.0 Est GFR ( Amer) > 60 Est GFR (Non-Af Amer) 53 Random Glucose 91 Calcium 7.5 L Phosphorus 3.7 Magnesium 1.2 L Total Bilirubin 1.4 H AST 41 H D ALT 34 Alkaline Phosphatase 65 Total Protein 5.4 L Albumin 2.8 L Globulin 2.6 Albumin/Globulin Ratio 1.1 Venous Blood Potassium Urine Color Urine Appearance Urine pH Ur Specific Magnolia Urine Protein Urine Glucose (UA) Urine Ketones Urine Blood Urine Nitrate Urine Bilirubin Urine Urobilinogen Ur Leukocyte Esterase Urine RBC Urine WBC Ur Epithelial Cells Urine Bacteria Blood Type Antibody Screen BBK History Checked Fingerstick Blood Sugar Results: 164 Review of Systems - Review of Systems All systems: reviewed and no additional remarkable complaints except Review of Systems: as per subjective portion of note Critical Care Progress Note - Nutrition Nutrition: Nutrition Category Date Time Status Heart Healthy Diet [DIET] Diets 09/26/17 Breakfast Ordered Assessment/Plan - Assessment and Plan (Free Text) Assessment: 82 year old female with PMH afib on Coumadin, 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 Systolic BPs stable 90s-100s. : Neuro: - AAOx3 - Head CT neg for acute changes. - continue to monitor for mental status changes Cardio: - INR 2.99, hold today's dose of COumadin as well as per Cardio. Daily INR. Will recheck tomorrow. - Syncopal episodes 2/2 pacemaker malfunction vs medication induced (lasix) vs orthostatic vs neurocardiogenic - BP stable. NS @ 100. Wean down as pt taking more PO intake. - Dr Rodriguez consulted. F/u recs. - troponin elevated 0.47. likely 2/2 chronic CVD/afib. - eCHO 09/2017: EF 50%. Mod aortic valve stenosis. Mild to mod MR. Mod-severe pulm HTN. - EKG HR 70, paced. No ST-segment elevations or depressions, no T-wave inversions, normal intervals. - ASA 325 mg po given iN ED. ASA 81 mg daily. - Will hold home BB, MARCELL-i, lasix due to low BP - home lipitor - Maintain MAP>65 - O2 prn Pulm: - CXR neg for acute infiltrates. Moderate cardiomegaly. - Saturating well on NC - maintain SpO2 above 95% ID: - leukocytosis (likely reactive from steroids) - CXR neg for acute infiltrates. UA neg for infection. F/u urine culture, blood culture - ID consulted. F/u recs. - s/p Vanco and Zosyn in ED. received 2 doses of Merrem IV. Renal: - Stable BUN/Cr - Hypokalemic. Repleted - Magnesium low. repleted - Mag oxide 400 mg PO BID - Daily cmp - replete electrolytes as needed Endo: - Maintain euglycemia GI: - protonix - HHD DVT ppx: SCDs GI PPX: protonix Case seen and discussed with Dr Calhoun. - Date & Time Date: 09/27/17 Time: 08:50 <Mervin Calohun - Last Filed: 09/27/17 11:29> CCU Objective - Medications Active Medications: Active Medications Generic Name Dose Route Start Last Admin Trade Name Freq PRN Reason Stop Dose Admin Aspirin 81 mg 09/27/17 10:00 09/27/17 11:20 Aspirin Chewable PO 81 mg DAILY JOAO Administration Atorvastatin Calcium 10 mg 09/27/17 22:00 Lipitor PO HS JOAO Sodium Chloride 1,000 mls @ 100 mls/hr 09/27/17 08:15 Sodium Chloride 0.9% IV .Q10H JOAO Magnesium Oxide 400 mg 09/27/17 10:00 09/27/17 11:20 Mag-Ox PO 400 mg BID JOAO Administration Pantoprazole Sodium 40 mg 09/28/17 07:30 Protonix Ec Tab PO ACB JOAO Potassium Chloride 40 meq 09/27/17 13:00 K-Dur 20 Meq Er Tab PO 09/27/17 13:01 ONCE ONE Warfarin Sodium 2 mg 09/27/17 18:00 Coumadin PO 1800 JOAO Protocol - Patient Studies Lab Studies: Lab Studies 09/27/17 09/27/17 09/27/17 Range/Units 06:00 06:00 06:00 WBC (4.5-11.0) 10^3/ul RBC (3.5-6.1) 10^6/uL Hgb (12.0-16.0) g/dL Hct (36.0-48.0) % MCV (80.0-105.0) fl MCH (25.0-35.0) pg MCHC (31.0-37.0) g/dl RDW (11.5-14.5) % Plt Count (120.0-450.0) 10^3/uL MPV (7.0-11.0) fl Gran % (50.0-68.0) % Lymph % (Auto) (22.0-35.0) % Nobles % (Auto) (1.0-6.0) % Eos % (Auto) (1.5-5.0) % Baso % (Auto) (0.0-3.0) % Gran # (1.4-6.5) Lymph # (Auto) (1.2-3.4) Nobles # (Auto) (0.1-0.6) Eos # (Auto) (0.0-0.7) Baso # (Auto) (0.0-2.0) K/mm3 PT 35.2 H (9.4-12.5) SECONDS INR 2.99 H (0.93-1.08) APTT 39.8 H (25.1-36.5) Seconds pO2 (30-55) mm/Hg VBG pH (7.32-7.43) VBG pCO2 (40-60) VBG HCO3 (21-28) mmol/l VBG Total CO2 (22-28) mmol.L VBG O2 Sat (Calc) (40-65) % VBG Base Excess (0.0-2.0) mmol/L VBG Potassium (3.6-5.2) mmol/L Sodium 139 (132-148) mmol/L Chloride 97 L (98-107) mmol/L Glucose (65-105) mg/dl Lactate (0.7-2.1) mmol/L FiO2 % Potassium 2.9 L* (3.6-5.0) mmol/L Carbon Dioxide 36 H (21-33) mmol/L Anion Gap 9 L (10-20) BUN 42 H (7-21) mg/dL Creatinine 1.0 (0.7-1.2) mg/dl Est GFR ( Amer) > 60 Est GFR (Non-Af Amer) 53 Random Glucose 91 (70-110) mg/dL Calcium 7.5 L (8.4-10.5) mg/dL Phosphorus 3.7 (2.5-4.5) mg/dL Magnesium 1.2 L (1.7-2.2) mg/dL Total Bilirubin 1.4 H (0.2-1.3) mg/dL AST 41 H D (14-36) U/L ALT 34 (7-56) U/L Alkaline Phosphatase 65 (38-126) U/L Troponin I 0.27 H* D ng/mL Total Protein 5.4 L (5.8-8.3) g/dL Albumin 2.8 L (3.0-4.8) g/dL Globulin 2.6 gm/dL Albumin/Globulin Ratio 1.1 (1.1-1.8) Venous Blood Potassium (3.6-5.2) mmol/L Urine Color (YELLOW) Urine Appearance (CLEAR) Urine pH (4.7-8.0) Ur Specific Magnolia (1.005-1.035) Urine Protein (<30 mg/dL) mg/dL Urine Glucose (UA) (NEGATIVE) mg/dL Urine Ketones (NEGATIVE) mg/dL Urine Blood (NEGATIVE) Urine Nitrate (NEGATIVE) Urine Bilirubin (NEGATIVE) Urine Urobilinogen (<1 E.U./dL) E.U./dL Ur Leukocyte Esterase (NEGATIVE) Jackie/uL Urine RBC (0-2) /hpf Urine WBC (0-6) /hpf Ur Epithelial Cells (0-5) /hpf Urine Bacteria (NEG) Blood Type Antibody Screen BBK History Checked 09/27/17 09/26/17 09/26/17 Range/Units 06:00 21:30 16:51 WBC 14.9 H D (4.5-11.0) 10^3/ul RBC 4.11 (3.5-6.1) 10^6/uL Hgb 11.7 L D (12.0-16.0) g/dL Hct 35.7 L (36.0-48.0) % MCV 86.9 (80.0-105.0) fl MCH 28.5 (25.0-35.0) pg MCHC 32.8 (31.0-37.0) g/dl RDW 14.2 (11.5-14.5) % Plt Count 121 (120.0-450.0) 10^3/uL MPV 12.0 H (7.0-11.0) fl Gran % 86.7 H (50.0-68.0) % Lymph % (Auto) 8.1 L (22.0-35.0) % Nobles % (Auto) 3.8 (1.0-6.0) % Eos % (Auto) 1.3 L (1.5-5.0) % Baso % (Auto) 0.1 (0.0-3.0) % Gran # 12.94 H (1.4-6.5) Lymph # (Auto) 1.2 (1.2-3.4) Nobles # (Auto) 0.6 (0.1-0.6) Eos # (Auto) 0.2 (0.0-0.7) Baso # (Auto) 0.01 (0.0-2.0) K/mm3 PT (9.4-12.5) SECONDS INR (0.93-1.08) APTT (25.1-36.5) Seconds pO2 69 H (30-55) mm/Hg VBG pH 7.42 (7.32-7.43) VBG pCO2 57.0 (40-60) VBG HCO3 37.0 H (21-28) mmol/l VBG Total CO2 38.7 H (22-28) mmol.L VBG O2 Sat (Calc) 96.4 H (40-65) % VBG Base Excess 10.3 H (0.0-2.0) mmol/L VBG Potassium 2.2 L* (3.6-5.2) mmol/L Sodium 136.0 (132-148) mmol/L Chloride 95.0 L (98-107) mmol/L Glucose 141 H (65-105) mg/dl Lactate 1.8 (0.7-2.1) mmol/L FiO2 21.0 % Potassium (3.6-5.0) mmol/L Carbon Dioxide (21-33) mmol/L Anion Gap (10-20) BUN (7-21) mg/dL Creatinine (0.7-1.2) mg/dl Est GFR ( Amer) Est GFR (Non-Af Amer) Random Glucose (70-110) mg/dL Calcium (8.4-10.5) mg/dL Phosphorus (2.5-4.5) mg/dL Magnesium (1.7-2.2) mg/dL Total Bilirubin (0.2-1.3) mg/dL AST (14-36) U/L ALT (7-56) U/L Alkaline Phosphatase (38-126) U/L Troponin I ng/mL Total Protein (5.8-8.3) g/dL Albumin (3.0-4.8) g/dL Globulin gm/dL Albumin/Globulin Ratio (1.1-1.8) Venous Blood Potassium 2.2 L* (3.6-5.2) mmol/L Urine Color Yellow (YELLOW) Urine Appearance Clear (CLEAR) Urine pH 6.5 (4.7-8.0) Ur Specific Magnolia 1.010 (1.005-1.035) Urine Protein Trace H (<30 mg/dL) mg/dL Urine Glucose (UA) Negative (NEGATIVE) mg/dL Urine Ketones Negative (NEGATIVE) mg/dL Urine Blood Trace-intact H (NEGATIVE) Urine Nitrate Negative (NEGATIVE) Urine Bilirubin Negative (NEGATIVE) Urine Urobilinogen 0.2 (<1 E.U./dL) E.U./dL Ur Leukocyte Esterase Negative (NEGATIVE) Jackie/uL Urine RBC Negative (0-2) /hpf Urine WBC 2 - 5 (0-6) /hpf Ur Epithelial Cells 1 - 3 (0-5) /hpf Urine Bacteria Few (NEG) Blood Type Antibody Screen BBK History Checked 09/26/17 Range/Units 16:33 WBC (4.5-11.0) 10^3/ul RBC (3.5-6.1) 10^6/uL Hgb (12.0-16.0) g/dL Hct (36.0-48.0) % MCV (80.0-105.0) fl MCH (25.0-35.0) pg MCHC (31.0-37.0) g/dl RDW (11.5-14.5) % Plt Count (120.0-450.0) 10^3/uL MPV (7.0-11.0) fl Gran % (50.0-68.0) % Lymph % (Auto) (22.0-35.0) % Nobles % (Auto) (1.0-6.0) % Eos % (Auto) (1.5-5.0) % Baso % (Auto) (0.0-3.0) % Gran # (1.4-6.5) Lymph # (Auto) (1.2-3.4) Nobles # (Auto) (0.1-0.6) Eos # (Auto) (0.0-0.7) Baso # (Auto) (0.0-2.0) K/mm3 PT (9.4-12.5) SECONDS INR (0.93-1.08) APTT (25.1-36.5) Seconds pO2 (30-55) mm/Hg VBG pH (7.32-7.43) VBG pCO2 (40-60) VBG HCO3 (21-28) mmol/l VBG Total CO2 (22-28) mmol.L VBG O2 Sat (Calc) (40-65) % VBG Base Excess (0.0-2.0) mmol/L VBG Potassium (3.6-5.2) mmol/L Sodium (132-148) mmol/L Chloride (98-107) mmol/L Glucose (65-105) mg/dl Lactate (0.7-2.1) mmol/L FiO2 % Potassium (3.6-5.0) mmol/L Carbon Dioxide (21-33) mmol/L Anion Gap (10-20) BUN (7-21) mg/dL Creatinine (0.7-1.2) mg/dl Est GFR ( Amer) Est GFR (Non-Af Amer) Random Glucose (70-110) mg/dL Calcium (8.4-10.5) mg/dL Phosphorus (2.5-4.5) mg/dL Magnesium (1.7-2.2) mg/dL Total Bilirubin (0.2-1.3) mg/dL AST (14-36) U/L ALT (7-56) U/L Alkaline Phosphatase (38-126) U/L Troponin I ng/mL Total Protein (5.8-8.3) g/dL Albumin (3.0-4.8) g/dL Globulin gm/dL Albumin/Globulin Ratio (1.1-1.8) Venous Blood Potassium (3.6-5.2) mmol/L Urine Color (YELLOW) Urine Appearance (CLEAR) Urine pH (4.7-8.0) Ur Specific [place] (1.005-1.035) Urine Protein (<30 mg/dL) mg/dL Urine Glucose (UA) (NEGATIVE) mg/dL Urine Ketones (NEGATIVE) mg/dL Urine Blood (NEGATIVE) Urine Nitrate (NEGATIVE) Urine Bilirubin (NEGATIVE) Urine Urobilinogen (<1 E.U./dL) E.U./dL Ur Leukocyte Esterase (NEGATIVE) Jackie/uL Urine RBC (0-2) /hpf Urine WBC (0-6) /hpf Ur Epithelial Cells (0-5) /hpf Urine Bacteria (NEG) Blood Type O POSITIVE Antibody Screen Negative BBK History Checked Patient has bt Laboratory Results - last 24 hr 09/26/17 09/26/17 09/26/17 16:33 16:51 21:30 WBC RBC Hgb Hct MCV MCH MCHC RDW Plt Count MPV Gran % Lymph % (Auto) Nobles % (Auto) Eos % (Auto) Baso % (Auto) Gran # Lymph # (Auto) Nobles # (Auto) Eos # (Auto) Baso # (Auto) PT INR APTT pO2 69 H VBG pH 7.42 VBG pCO2 57.0 VBG HCO3 37.0 H VBG Total CO2 38.7 H VBG O2 Sat (Calc) 96.4 H VBG Base Excess 10.3 H VBG Potassium 2.2 L* Sodium 136.0 Chloride 95.0 L Glucose 141 H Lactate 1.8 FiO2 21.0 Potassium Carbon Dioxide Anion Gap BUN Creatinine Est GFR ( Amer) Est GFR (Non-Af Amer) Random Glucose Calcium Phosphorus Magnesium Total Bilirubin AST ALT Alkaline Phosphatase Troponin I Total Protein Albumin Globulin Albumin/Globulin Ratio Venous Blood Potassium 2.2 L* Urine Color Yellow Urine Appearance Clear Urine pH 6.5 Ur Specific [place] 1.010 Urine Protein Trace H Urine Glucose (UA) Negative Urine Ketones Negative Urine Blood Trace-intact H Urine Nitrate Negative Urine Bilirubin Negative Urine Urobilinogen 0.2 Ur Leukocyte Esterase Negative Urine RBC Negative Urine WBC 2 - 5 Ur Epithelial Cells 1 - 3 Urine Bacteria Few Blood Type O POSITIVE Antibody Screen Negative BBK History Checked Patient has bt 09/27/17 09/27/17 09/27/17 06:00 06:00 06:00 WBC 14.9 H D RBC 4.11 Hgb 11.7 L D Hct 35.7 L MCV 86.9 MCH 28.5 MCHC 32.8 RDW 14.2 Plt Count 121 MPV 12.0 H Gran % 86.7 H Lymph % (Auto) 8.1 L Nobles % (Auto) 3.8 Eos % (Auto) 1.3 L Baso % (Auto) 0.1 Gran # 12.94 H Lymph # (Auto) 1.2 Nobles # (Auto) 0.6 Eos # (Auto) 0.2 Baso # (Auto) 0.01 PT 35.2 H INR 2.99 H APTT 39.8 H pO2 VBG pH VBG pCO2 VBG HCO3 VBG Total CO2 VBG O2 Sat (Calc) VBG Base Excess VBG Potassium Sodium 139 Chloride 97 L Glucose Lactate FiO2 Potassium 2.9 L* Carbon Dioxide 36 H Anion Gap 9 L BUN 42 H Creatinine 1.0 Est GFR ( Amer) > 60 Est GFR (Non-Af Amer) 53 Random Glucose 91 Calcium 7.5 L Phosphorus 3.7 Magnesium 1.2 L Total Bilirubin 1.4 H AST 41 H D ALT 34 Alkaline Phosphatase 65 Troponin I Total Protein 5.4 L Albumin 2.8 L Globulin 2.6 Albumin/Globulin Ratio 1.1 Venous Blood Potassium Urine Color Urine Appearance Urine pH Ur Specific [place] Urine Protein Urine Glucose (UA) Urine Ketones Urine Blood Urine Nitrate Urine Bilirubin Urine Urobilinogen Ur Leukocyte Esterase Urine RBC Urine WBC Ur Epithelial Cells Urine Bacteria Blood Type Antibody Screen BBK History Checked 09/27/17 06:00 WBC RBC Hgb Hct MCV MCH MCHC RDW Plt Count MPV Gran % Lymph % (Auto) Nobles % (Auto) Eos % (Auto) Baso % (Auto) Gran # Lymph # (Auto) [place]les # (Auto) Eos # (Auto) Baso # (Auto) PT INR APTT pO2 VBG pH VBG pCO2 VBG HCO3 VBG Total CO2 VBG O2 Sat (Calc) VBG Base Excess VBG Potassium Sodium Chloride Glucose Lactate FiO2 Potassium Carbon Dioxide Anion Gap BUN Creatinine Est GFR ( Amer) Est GFR (Non-Af Amer) Random Glucose Calcium Phosphorus Magnesium Total Bilirubin AST ALT Alkaline Phosphatase Troponin I 0.27 H* D Total Protein Albumin Globulin Albumin/Globulin Ratio Venous Blood Potassium Urine Color Urine Appearance Urine pH Ur Specific [place] Urine Protein Urine Glucose (UA) Urine Ketones Urine Blood Urine Nitrate Urine Bilirubin Urine Urobilinogen Ur Leukocyte Esterase Urine RBC Urine WBC Ur Epithelial Cells Urine Bacteria Blood Type Antibody Screen BBK History Checked Critical Care Progress Note - Nutrition Nutrition: Nutrition Category Date Time Status Heart Healthy Diet [DIET] Diets 09/26/17 Breakfast Ordered Assessment/Plan - Assessment and Plan (Free Text) Assessment: Patient seen and examined with resident, agree with note with following additions/exceptions: Patient is 82yo female with PMhx of CHF s/p AICD, Afib on Coumadin, HTN, HLD, presented with multiple episodes of syncope, and hypotension. Currently the patient is afebriule, HD stable, SBP 85-95, doing well, AAOx3, NAD , s/p 1.5L NS bolus yesterday, on IVF currently. CT head negative CT A/P neg for acute pathology AICD interrogation pending ID and cardiology eval appreciated Syncope CHF Afib Dehydration Hypotension Severe Sepsis Recommend: - supp o2 as needed - panculture, UCx, BCx, Procal - ID eval - Broad spectrum abx, Vanco, Merrem - IVF hydration, monitor resp status - HOLD Lasix - HOLD BB, ACEI - Cardiology eval - AICD interrogation - replete K - FS control - monitor HH - dose Coumadin - DVT ppx, Coumadin - GI ppx - Monitor in MICU
--- NOTE | 2017-09-27 09:39 | CP.PCM.PN ---
Subjective - Date & Time of Evaluation Date of Evaluation: 09/27/17 Time of Evaluation: 07:00 - Subjective Subjective: Readmitted to ICU with syncope at home. Brief unresponsive episode while getting a haircut. Woke up promptly. No CP, palpation. No shock. No seizure activity. Her daughter is at the bedside. V/S noted. Hypotension as low as 80's at times. V. Paced, PE: Lungs: clear Cor.: S1S2 Abd.: soft Ext.: no edema Neuro.: alert I/O = N/A Labs/ABGs noted: WBC= 14,900, H/H 11.5/35.7, INR = 2.99, K+ = 2.9 CXR noted: NAD ECG: V. Paced CT Head: noted Objective - Vital Signs/Intake and Output Vital Signs (last 24 hours): Temp Pulse Resp BP Pulse Ox 98.2 F 70 17 121/91 H 97 09/26/17 18:07 09/26/17 18:21 09/26/17 18:07 09/26/17 18:00 09/26/17 18:10 - Medications Medications: Current Medications Aspirin (Aspirin Chewable) 81 mg PO DAILY JOAO Atorvastatin Calcium (Lipitor) 10 mg PO HS JOAO Sodium Chloride (Sodium Chloride 0.9%) 1,000 mls @ 100 mls/hr IV .Q10H JOAO Magnesium Oxide (Mag-Ox) 400 mg PO BID JOAO Pantoprazole Sodium (Protonix Inj) 40 mg IVP DAILY JOAO Potassium Chloride (K-Dur 20 Meq Er Tab) 40 meq PO ONCE ONE Stop: 09/27/17 13:01 Warfarin Sodium (Coumadin) 2 mg PO 1800 JOAO PRN Reason: Protocol - Labs Labs: 09/27/17 06:00 09/27/17 06:00 PT 35.2 SECONDS (9.4-12.5) H 09/27/17 06:00 INR 2.99 (0.93-1.08) H 09/27/17 06:00 APTT 39.8 Seconds (25.1-36.5) H 09/27/17 06:00 Assessment and Plan - Assessment and Plan (Free Text) Assessment: Syncope at home Hypotension R/O infection/Sepsis Hypokalemia, hypomagnesemia CHF, diastolic Recent bronchitis/pneumonia A. Flutter with slow VR/VT episode.ICD implant with pocket hematoma, improving Brief CPR with rib fx. HLD Osteoporosis Surgeries: GB, Hysterectomy, Hernia Plan: ICU Will arrange for the ICD to be interrogated today Replace K+, Mg.++ Culture AB IVF cautiously Hold lisinopril, Lasix, metoprolol for now Warfarin by daily INRs. Hold today. As per ID, Pulmonary, Intensivists, Dr. Ruggiero Will follow.
--- NOTE | 2017-09-27 10:36 | CT ---
PROCEDURE: CT scan abdomen and pelvis dated 09/27/2017. HISTORY: Abdominal pain. COMPARISON: Comparison made with prior study 09/03/2015. TECHNIQUE: Contiguous helical/ transaxial sections of the abdomen and pelvis performed without oral or intravenous contrast material. Additional 2 dimensional sagittal and coronal reformats generated. Radiation dose: Total exam DLP = This CT exam was performed using one or more of the following dose reduction techniques: Automated exposure control, adjustment of the mA and/or kV according to patient size, and/or use of iterative reconstruction technique. FINDINGS: LOWER THORAX: Small right-sided effusion with mild right basilar atelectasis with my atelectatic changes also seen in the middle lobe and left posterior lung base. There is also atelectasis in the left lingular region. . Heart is enlarged with pericardial effusion. LIVER: Liver exhibits normal size measuring approximately 15 cm in CC dimension. No obvious hepatic mass collection or calcification. GALLBLADDER AND BILE DUCTS: Cholecystectomy. PANCREAS: Pancreas is atrophic and fatty replaced. No obvious pancreatic masses or collections. SPLEEN: Spleen exhibits normal size and attenuation pattern without mass collection or calcification. ADRENALS: Re- demonstrated is a small approximately 11 mm rounded low-attenuation lesion right adrenal gland consistent with adenoma. There is approximately 6.3 mm low-attenuation lesion left the adrenal gland consistent with adenoma as well. KIDNEYS AND URETERS: Kidneys demonstrate relatively symmetric size. No evidence of nephrolithiasis or hydronephrosis. There is a small approximately 12.5 mm partially exophytic cyst arising from the posterolateral cortex mid- left kidney. Mild infiltration changes are seen within the perinephric fat bilaterally more so on the left side nonspecific. BLADDER: Evaluation of the urinary bladder is limited due to the presence of an in situ unclamped Maldonado catheter. Urinary bladder is collapsed about the Maldonado catheter. Small amount of air is present within the urinary bladder lumen consistent with recent instrumentation. No obvious intraluminal urinary bladder calculi. REPRODUCTIVE: Changes of hysterectomy. APPENDIX: The appendix is not seen with certainty on this study however no obvious inflammatory changes right lower quadrant of the abdomen. BOWEL: Evaluation of the bowel is limited due to the lack of oral contrast material although hyperdense food debris is present within the collapsed stomach. The stomach wade are thickened likely due to collapse however the possibility of a gastritis or other intrinsic/invasive wall lesion not excluded. Visualized loops of small bowel exhibit normal contour and caliber. No evidence of acute mechanical small bowel obstruction. Few scattered colonic diverticula are seen along the sigmoid and descending colon however no radiographic evidence of acute diverticulitis. PERITONEUM: Unremarkable. No fluid collection. No free air. LYMPH NODES: Unremarkable. No enlarged lymph nodes. VASCULATURE: No evidence of abdominal aortic or iliac artery aneurysms. . BONES: Re- demonstrated are multilevel of compression endplate deformities of the lumbar as well as lower thoracic spine most significant of which involves the L1 segment with near vertebral plana in the mid aspect of the vertebral body segment and retropulsion of the posterior superior corner of this segment. OTHER FINDINGS: None. IMPRESSION: Small right-sided effusion and mild right basilar atelectasis. Tiny left effusion along the lingular region There are also atelectatic changes seen in the right middle lobe as well as left posterior sulcus. . Cardiomegaly with pericardial effusion ; consider echocardiogram further evaluation Changes of cholecystectomy. Stable appearing right adrenal adenoma. The prominent slightly nodular appearing left adrenal gland with suspected tiny and adenoma left adrenal gland Few scattered colonic diverticula however no radiographic evidence of acute diverticulitis. Changes of cholecystectomy. Small bilateral adrenal adenomas. Small exophytic cyst left kidney as above. The In situ Maldonado catheter. AP elliptical last lung lung base area at 8 was a little bit a mean of high moderate Wo
[2017-09-27] MEDS: Magnesium Oxide 400 mg Tab UD PO SCH ×2 (11:20→18:03)
[2017-09-27 12:10] LABS: EOS % 0.3 % (1.5-5.0); GRAN # 13.09 (1.4-6.5); GRAN % 87.7 % (50.0-68.0); HEMOGLOBIN 11.7 g/dL (12.0-16.0); LYMPH # 1.2 (1.2-3.4); LYMPH % 8.2 % (22.0-35.0); MEAN CELL VOLUME 87.7 fl (80.0-105.0); MEAN CORPUSCULAR HEMOGLOBIN 28.7 pg (25.0-35.0); MEAN CORPUSCULAR HGB CONC 32.7 g/dl (31.0-37.0); MEAN PLATELET VOLUME 12.3 fl (7.0-11.0); MONO # 0.6 (0.1-0.6); MONO % 3.8 % (1.0-6.0); RBC 4.08 10^6/uL (3.5-6.1); RED CELL DISTRIBUTION WIDTH 14.3 % (11.5-14.5); WHITE BLOOD COUNT 14.9 10^3/ul (4.5-11.0)
[2017-09-27] MEDS: Meropenem IV 1 gm in NS 50 ML IVPB SCH ×2 (14:41→22:00)
--- NOTE | 2017-09-27 16:14 | CP.PCM.CON ---
History of Present Illness - History of Present Illness History of Present Illness: S&E at bedside chart reviewed. Daughter at bedside contributing to history and also occasional translation, patient also speaks some Serbian but understand Wallisian. Request for GI consult is for hemochromatosis evaluation. HPI: This is an 82-year-old female with a past medical history of recent pacemaker on August 2017, H a fibrillation on Coumadin, hyperlipidemia recently discharged from [facility] on 09/25/17, for CHF. Patient was brought back to the emergency room for syncopal episodes yesterday. As per daughter at the patient was having her hair, at home and passed out twice for a couple of minutes. The patient did not bump her head. She did have a CT scan of her head which was negative for acute bleed or infarct. It did show chronic microvascular changes and calcified meningioma. The patient denies any nausea, vomiting, shortness of breath or chest pain. The patient did complain of abdominal pain yesterday and as per daughter the patient had multiple large soft bowel movements that appeared dark and is found to be guaiac positive. Now BM is loose. The patient does not have any history of constipation. She does complain of suprapubic discomfort, slightly better today. Denies dysuria or hematuria. The patient's last colonoscopy was less than 5 years ago found to have colon polyps. No reports of any on intentional weight loss or loss of appetite. The patient went for a CT scan of abdomen and pelvis this morning, report reviewed, noted to have colonic diverticula but no evidence of diverticulitis, right sided effusion and mild right bibasilar atelectasis with cardiomegaly and pericardial effusion, right stable a GI adenoma and also noted left adrenal adenoma. See [facility] for full report. In review of labs the patient is noted to have elevated iron level from 09/22/17 202 4:00, ferritin level from 09/22 is 482.0. Iron saturation from 09/22 is 57. No history of any liver disease or known family history of hemachromatosis as per daughter. Later on received phone call that patient had bloody bowel movement about 100 cc , as per nursing staff. Past medical history: Symptomatic bradycardia status post pacemaker on 2017, atrial fibrillation on Coumadin, osteoporosis, colon polyps, arthritis Surgical history: Cholecystectomy, hysterectomy, colonoscopy less than 5 years ago found to have colon polyps as per patient, denies endoscopy., Patient had cardiac catheterization prior to pacemaker at [facility] as per daughter. Allergies: No known drug allergies Medications: Reviewed as per MAR Social history: Denies tobacco, EtOH or illicit jugs. Family history: Multiple myeloma ROS: Systems reviewed and positive findings see HPI Past Patient History - Infectious Disease Hx of Infectious Diseases: None - Tetanus Immunizations Tetanus Immunization: Unknown - Past Medical History & Family History Past Medical History?: Yes - Past Social History Smoking Status: Former Smoker - CARDIAC Hx Cardiac Disorders: Yes Hx Congestive Heart Failure: Yes - PULMONARY Hx Chronic Obstructive Pulmonary Disease (COPD): Yes - NEUROLOGICAL Hx Neurological Disorder: No - HEENT Hx HEENT Problems: Yes Other/Comment: glasses - RENAL Hx Chronic Kidney Disease: No - ENDOCRINE/METABOLIC Hx Endocrine Disorders: No - HEMATOLOGICAL/ONCOLOGICAL Hx Blood Disorders: No - INTEGUMENTARY Hx Dermatological Problems: No - MUSCULOSKELETAL/RHEUMATOLOGICAL Hx Arthritis: Yes Hx Falls: Yes - GASTROINTESTINAL Hx Gastrointestinal Disorders: No - GENITOURINARY/GYNECOLOGICAL Hx Genitourinary Disorders: No - PSYCHIATRIC Hx Psychophysiologic Disorder: No - SURGICAL HISTORY Hx Cholecystectomy: Yes Other/Comment: HEMORRHOIDECTOMY,HYSTERECTOMY - ANESTHESIA Hx Anesthesia: Yes Hx Anesthesia Reactions: No Hx Malignant Hyperthermia: No Meds Allergies/Adverse Reactions: Allergies Allergy/AdvReac Type Severity Reaction Status Date / Time No Known Allergies Allergy Verified 09/26/17 12:12 - Medications Medications: Current Medications Aspirin (Aspirin Chewable) 81 mg PO DAILY JOAO Atorvastatin Calcium (Lipitor) 10 mg PO HS JOAO Sodium Chloride (Sodium Chloride 0.9%) 1,000 mls @ 100 mls/hr IV .Q10H JOAO Meropenem (Merrem Iv 1 Gm Premix) 50 mls @ 100 mls/hr IVPB Q12 JOAO PRN Reason: Protocol Magnesium Oxide (Mag-Ox) 400 mg PO BID JOAO Last Admin: 09/27/17 11:20 Dose: 400 mg Pantoprazole Sodium (Protonix Ec Tab) 40 mg PO ACB JOAO Potassium Chloride (K-Dur 20 Meq Er Tab) 40 meq PO ONCE ONE Stop: 09/27/17 13:01 Warfarin Sodium (Coumadin) 2 mg PO 1800 JOAO PRN Reason: Protocol Physical Exam - Constitutional Appears: No Acute Distress - Head Exam Head Exam: NORMOCEPHALIC - Eye Exam Eye Exam: Normal appearance. absent: Scleral icterus - ENT Exam ENT Exam: Mucous Membranes Moist - Neck Exam Neck exam: Positive for: Normal Inspection - Respiratory Exam Respiratory Exam: NORMAL BREATHING PATTERN. absent: Respiratory Distress - Cardiovascular Exam Cardiovascular Exam: Irregular Rhythm, +S1, +S2 - GI/Abdominal Exam GI & Abdominal Exam: Distended, Normal Bowel Sounds, Soft, Tenderness ( suprapubic). absent: Guarding, Rebound - Extremities Exam Extremities exam: Positive for: pedal edema, pedal pulses present. Negative for : calf tenderness - Neurological Exam Neurological exam: Alert, Oriented x3 - Skin Skin Exam: Dry, Warm Results - Vital Signs Recent Vital Signs: Last Vital Signs Temp 98.2 F 09/26/17 18:07 Pulse 70 09/26/17 18:21 Resp 17 09/26/17 18:07 BP 121/91 H 09/26/17 18:00 Pulse Ox 97 09/26/17 18:10 - Labs Result Diagrams: 09/27/17 12:05 09/27/17 06:00 Labs: Laboratory Results - last 24 hr 09/26/17 09/26/17 09/26/17 16:33 16:51 21:30 WBC RBC Hgb Hct MCV MCH MCHC RDW Plt Count MPV Gran % Lymph % (Auto) Hopkins % (Auto) Eos % (Auto) Baso % (Auto) Gran # Lymph # (Auto) Hopkins # (Auto) Eos # (Auto) Baso # (Auto) PT INR APTT pO2 69 H VBG pH 7.42 VBG pCO2 57.0 VBG HCO3 37.0 H VBG Total CO2 38.7 H VBG O2 Sat (Calc) 96.4 H VBG Base Excess 10.3 H VBG Potassium 2.2 L* Sodium 136.0 Chloride 95.0 L Glucose 141 H Lactate 1.8 FiO2 21.0 Potassium Carbon Dioxide Anion Gap BUN Creatinine Est GFR ( Amer) Est GFR (Non-Af Amer) Random Glucose Calcium Phosphorus Magnesium Total Bilirubin AST ALT Alkaline Phosphatase Troponin I Total Protein Albumin Globulin Albumin/Globulin Ratio Venous Blood Potassium 2.2 L* Urine Color Yellow Urine Appearance Clear Urine pH 6.5 Ur Specific Wilkinson 1.010 Urine Protein Trace H Urine Glucose (UA) Negative Urine Ketones Negative Urine Blood Trace-intact H Urine Nitrate Negative Urine Bilirubin Negative Urine Urobilinogen 0.2 Ur Leukocyte Esterase Negative Urine RBC Negative Urine WBC 2 - 5 Ur Epithelial Cells 1 - 3 Urine Bacteria Few Blood Type O POSITIVE Antibody Screen Negative BBK History Checked Patient has bt 09/27/17 09/27/17 09/27/17 06:00 06:00 06:00 WBC 14.9 H D RBC 4.11 Hgb 11.7 L D Hct 35.7 L MCV 86.9 MCH 28.5 MCHC 32.8 RDW 14.2 Plt Count 121 MPV 12.0 H Gran % 86.7 H Lymph % (Auto) 8.1 L Hopkins % (Auto) 3.8 Eos % (Auto) 1.3 L Baso % (Auto) 0.1 Gran # 12.94 H Lymph # (Auto) 1.2 Hopkins # (Auto) 0.6 Eos # (Auto) 0.2 Baso # (Auto) 0.01 PT 35.2 H INR 2.99 H APTT 39.8 H pO2 VBG pH VBG pCO2 VBG HCO3 VBG Total CO2 VBG O2 Sat (Calc) VBG Base Excess VBG Potassium Sodium 139 Chloride 97 L Glucose Lactate FiO2 Potassium 2.9 L* Carbon Dioxide 36 H Anion Gap 9 L BUN 42 H Creatinine 1.0 Est GFR ( Amer) > 60 Est GFR (Non-Af Amer) 53 Random Glucose 91 Calcium 7.5 L Phosphorus 3.7 Magnesium 1.2 L Total Bilirubin 1.4 H AST 41 H D ALT 34 Alkaline Phosphatase 65 Troponin I Total Protein 5.4 L Albumin 2.8 L Globulin 2.6 Albumin/Globulin Ratio 1.1 Venous Blood Potassium Urine Color Urine Appearance Urine pH Ur Specific Wilkinson Urine Protein Urine Glucose (UA) Urine Ketones Urine Blood Urine Nitrate Urine Bilirubin Urine Urobilinogen Ur Leukocyte Esterase Urine RBC Urine WBC Ur Epithelial Cells Urine Bacteria Blood Type Antibody Screen BBK History Checked 09/27/17 06:00 WBC RBC Hgb Hct MCV MCH MCHC RDW Plt Count MPV Gran % Lymph % (Auto) Hopkins % (Auto) Eos % (Auto) Baso % (Auto) Gran # Lymph # (Auto) Hopkins # (Auto) Eos # (Auto) Baso # (Auto) PT INR APTT pO2 VBG pH VBG pCO2 VBG HCO3 VBG Total CO2 VBG O2 Sat (Calc) VBG Base Excess VBG Potassium Sodium Chloride Glucose Lactate FiO2 Potassium Carbon Dioxide Anion Gap BUN Creatinine Est GFR ( Amer) Est GFR (Non-Af Amer) Random Glucose Calcium Phosphorus Magnesium Total Bilirubin AST ALT Alkaline Phosphatase Troponin I 0.27 H* D Total Protein Albumin Globulin Albumin/Globulin Ratio Venous Blood Potassium Urine Color Urine Appearance Urine pH Ur Specific Wilkinson Urine Protein Urine Glucose (UA) Urine Ketones Urine Blood Urine Nitrate Urine Bilirubin Urine Urobilinogen Ur Leukocyte Esterase Urine RBC Urine WBC Ur Epithelial Cells Urine Bacteria Blood Type Antibody Screen BBK History Checked Assessment & Plan - Assessment and Plan (Free Text) Assessment: Assessment: Syncopal episodes Status post recent pacemaker Exacerbation of CHF Elevated iron studies, rule out hemochromatosis GI bleed, positive guaiac but also had blood per rectum Atrial fibrillation on Coumadin History of colon polyp Diverticulosis Mildly elevated liver enzymes, may be secondary to hepatic congestion History of cholecystectomy Elevated troponin Leukocytosis 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 Seen and discussed with Dr. Craven.
--- NOTE | 2017-09-27 17:11 | NM ---
PROCEDURE: Nuclear medicine gastrointestinal bleeding scan. HISTORY: rectal bleeding COMPARISON: September 27, 2017. CT abdomen and pelvis TECHNIQUE: 25.2 mCi technetium 99 M ultra tag administered intravenously.. Images of the abdomen and pelvis were obtained in the anterior and posterior projection at 1 min intervals over a period of 45 min. FINDINGS: No abnormal extravasation of tracer was observed throughout the exam to indicate active bleeding within or outside the gastrointestinal tract. Physiologic activity was seen in the heart, liver, spleen and blood vessels. IMPRESSION: No evidence of active gastrointestinal bleeding.
--- NOTE | 2017-09-27 17:50 | HP ---
CHIEF COMPLAINT AND HISTORY OF PRESENT ILLNESS: This is an 82-year-old female who is coming into the hospital because of syncopal episode. The patient has a past medical history of atrial fibrillation on Coumadin. She has a pacemaker that was placed. She was recently discharged from the [facility] Unit one day ago prior to coming into the ER. The patient has hypertension, dyslipidemia. According to the records and the daughter that I spoke with, the patient had syncopal episode. She was taking her medications. She states she does not feel well. She denies any chest pain or shortness of breath. No headaches or dizziness. No nausea. No vomiting. No fever, headaches or chills. She did have large bowel movement in the ER. The patient states she does get bleeding at times because she has hemorrhoids. REVIEW OF SYSTEMS: All other review of symptoms are within normal limits except what was mentioned. ALLERGIES: NO KNOWN DRUG ALLERGIES. HOME MEDICATIONS: Has been reviewed on the AUG. PAST MEDICAL HISTORY: 1. Atrial fibrillation on Coumadin, status post ICD placement in 08/2017. 2. Osteoporosis. 3. Osteoarthritis. PAST SURGICAL HISTORY: Hysterectomy and cholecystectomy. SOCIAL HISTORY: She does not smoke, drink or use drugs. FAMILY HISTORY: There is myeloma in the family. PHYSICAL EXAMINATION: VITAL SIGNS: Patient has a temperature of 98.2, pulse of 105, blood pressure, it was 121/91, but this morning systolic blood pressure is in the 80s, O2 saturation 97%. Height is 5 feet, weight is 168 pounds. BMI is 32. GENERAL: The patient lying in bed, uncomfortable, and in no acute distress. HEENT: Atraumatic and normocephalic. Anicteric sclerae. Moist mucosa. [place] conjunctivae. No oral lesions. NECK: No JVD, anterior and posterior adenopathy, thyromegaly, or bruits. CARDIOVASCULAR: S1 and S2 regular. No murmur, rubs, or gallop. LUNGS: Clear to auscultation bilaterally. No wheezes, rales, or rhonchi. ABDOMEN: Bowel sounds are positive. There is a mild tenderness in the suprapubic area. No rebound. No guarding. EXTREMITIES: No cyanosis, clubbing, or edema. NEUROLOGIC: No facial asymmetry. Tongue is midline. No uvula deviation. Power is 5/5 upper extremity and lower extremity. Sensation intact in upper extremity and lower extremity. PSYCHIATRIC: She is awake, alert and oriented x3. No anxiety or depression. She has normal affect. GENITOURINARY: No CVA tenderness. VASCULAR: 2+ pulses in the carotid pulses and pedal pulses. SKIN: No erythema or nodules. SPINE: Shows normal curvature. LABORATORY DATA: Reviewed. White count is 20.3, hemoglobin is 14.6, platelet count is 170. Chemistry shows sodium 136, potassium is 2.8, creatinine is 1.1, troponin is 0.47. INR is 3.1, repeat is 2.9. The patient has repeat potassium is 2.9, magnesium is 1.4. EKG done shows electronic ventricular pacer. CT of the head done shows no evidence of acute intracranial hemorrhage, mass effect or midline shift. There is a 2 cm calcified lesion in the right aspect of the interhemispheric falx. There is calcified meningioma. Chest x-ray done shows no infiltrates. There is a pacemaker with wires that are seen. ASSESSMENT: 1. Sepsis. 2. Hypotension. 3. Chronic congestive heart failure secondary to systolic dysfunction. 4. Hypokalemia. 5. Hypomagnesemia. 6. Atrial fibrillation, on anticoagulation. 7. Osteoporosis. 8. Abdominal pain. 9. Elevated troponin. 10. 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 PLAN: The patient is currently admitted to the hospital. She is hypotensive. She has elevated white count. The patient is having diarrhea. Her urine and chest x-ray does not show any significant abnormalities. I am not sure the etiology of her sepsis. We will get blood cultures and urine cultures. We will order C. diff. She will get a CAT scan of her abdomen done without contrast to evaluate the cause of her abdominal pain. The patient is going to be on magnesium replacement. She is going to have Lipitor given. The patient is on heart healthy diet. She is going to have repeat blood work tomorrow. Potassium has been replaced. We will add on troponin. I did speak to Dr. Rodriguez regarding the case. I have also spoke to the patient's daughter at the bedside. I reviewed the patient's records from the last admission. Her overall prognosis is guarded. She will most likely need her pacemaker interrogated. I will also get Dr. Laureano to evaluate. The patient has elevated iron saturation, which is concerning for hemochromatosis. She does not have a history of hemochromatosis. The patient is going to be on magnesium for replacement as well. I will get Dr. Mcgarry to evaluate for sepsis. The patient is also going to be placed on oxygen. The patient had iron studies done and was found to have an elevated iron saturation. Her iron saturation is 55%. This was also repeated and it remained elevated. She was found to have ferritin that was also elevated. She does have heart failure secondary to systolic dysfunction. I will get Hematology and GI to evaluate further regarding her workup. She may need HFE genotype testing looking for [id number] mutation that maybe the cause of her hemochromatosis. She does have low ferritin level and normal enzymes, may need to consider therapeutic phlebotomy. At this point, I do not think she is stable enough to have further evaluation, which is possibly needed. Liver biopsy would be helpful, but she is critically ill at this point and not an option. Jw Ruggiero MD
--- NOTE | 2017-09-27 23:07 | CON ---
DATE: 09/27/2017 LOCATION: Patient is seen in the ICU 128, bed 4. CHIEF COMPLAINT: Weakness and abdominal pain x1 day duration. HISTORY OF PRESENT ILLNESS: This is an 82-year-old female, recently discharged, with history of atrial fibrillation, sick sinus syndrome status post AICD pacemaker placement in 08/2017 with chronic obstructive lung disease and obesity with BMI of 33 and recent hospitalization, history of osteoporosis, and congestive heart failure; who was admitted through the emergency room with chief complaint of syncope and multiple syncopal episodes and patient's daughter is at the bedside, says the patient is having abdominal pain, lower abdominal and pelvic pain, and there is no nausea or vomiting and no chest pain, no fevers and chills. There is mild shortness of breath. No headaches. No new back pain. No dysuria or frequency. PAST MEDICAL HISTORY: Significant for osteoporosis; arthritis; chronic obstructive lung disease; obesity, BMI of 33; atrial fibrillation; sick sinus syndrome. PAST SURGICAL HISTORY: Significant for AICD and hysterectomy and cholecystectomy. Patient has also a hemorrhoidectomy. ALLERGIES: PATIENT HAS NO KNOWN ALLERGIES. MEDICATIONS: Include Coumadin, Lipitor, metoprolol, magnesium, Lasix, potassium. PHYSICAL EXAMINATION: GENERAL: Patient is in bed, in no acute distress, however. VITAL SIGNS: With a temperature of 98; heart rate was up to 105; respiratory rate was up to 25; blood pressure is 121/90, it was as low as 69/31. HEENT: Unremarkable. NECK: Supple. LUNGS: Have decreased breath sounds. HEART: Normal S1, S2. ABDOMEN: Tender. No rebound or guarding. No masses. No CVA tenderness. LABORATORY EXAMINATION: Reveals a white count of 20,000, hemoglobin of 14, platelets of 170, and 83% granulocytosis. BUN of 42, creatinine of 1, and troponin is 0.4 and 0.27. Creatinine is noted. Urinalysis reveals 2 to 5 wbc's and CAT scan of the abdomen and pelvis reveals a small right-sided effusion, right-sided basilar atelectasis, tiny left effusion, cardiomegaly, and scattered diverticula, however nonspecific, any evidence of acute diverticulitis, and Dr. Lara note is reviewed. Dr. Rodriguez's note is reviewed. Chest x-ray is reported to be atelectasis and the patient had a CAT scan of the head unremarkable. ASSESSMENT AND PLAN: This is an 82-year-old female with atrial fibrillation, sick sinus syndrome status post automatic implantable cardioverter-defibrillator pacemaker in 08/2017, chronic obstructive lung disease, obesity, recent hospitalization, acute congestive heart failure on chronic congestive heart failure with osteoporosis, and presented with tachycardia, dyspnea, hypotension, leukocytosis, abdominal pain with severe sepsis secondary to gastrointestinal tract acute non-ST elevation myocardial infarction, was concerned about mesenteric ischemia. Dr. Craven, the chief engineer drilling and recovery who is personalized living manager nurse on the case, has recommended surgical evaluation. We will treat the patient with meropenem and patient was given a dose of vancomycin, pending yeboah blood cultures, urine cultures, and we will make further recommendations upon availability of initial results. Pete Mcgarry MD
[2017-09-28 00:10] LABS: EOS # 0.2 (0.0-0.7); EOS % 1.7 % (1.5-5.0); GRAN # 8.44 (1.4-6.5); GRAN % 84.9 % (50.0-68.0); HEMOGLOBIN 9.3 g/dL (12.0-16.0); LYMPH % 9.8 % (22.0-35.0); MEAN CELL VOLUME 89.2 fl (80.0-105.0); MEAN CORPUSCULAR HEMOGLOBIN 29.4 pg (25.0-35.0); MONO # 0.4 (0.1-0.6); MONO % 3.6 % (1.0-6.0); RBC 3.16 10^6/uL (3.5-6.1); RED CELL DISTRIBUTION WIDTH 14.4 % (11.5-14.5); WHITE BLOOD COUNT 9.9 10^3/ul (4.5-11.0)
[2017-09-28 00:59] LABS: ALBUMIN 1.9 g/dL (3.0-4.8); ALT/SGPT 37 U/L (7-56); AST/SGOT 27 U/L (14-36); BLOOD UREA NITROGEN 22 mg/dL (7-21); GFR AFRICAN-AMERICAN > 60; GFR NON-AFRICAN AMERICAN > 60
[2017-09-28] MEDS ORDERED: Potassium Chloride 20 mEq ER Tab PO ONE ×3 (01:02→07:00)
[2017-09-28 02:05] LABS: ALB/GLOB RATIO 0.9 (1.1-1.8)
[2017-09-28 06:52] LABS: EOS # 0.1 (0.0-0.7); EOS % 1.3 % (1.5-5.0); GRAN # 9.06 (1.4-6.5); GRAN % 84.5 % (50.0-68.0); HEMOGLOBIN 11.6 g/dL (12.0-16.0); LYMPH # 1.1 (1.2-3.4); LYMPH % 10.5 % (22.0-35.0); MEAN CORPUSCULAR HEMOGLOBIN 28.3 pg (25.0-35.0); MEAN CORPUSCULAR HGB CONC 31.8 g/dl (31.0-37.0); MEAN PLATELET VOLUME 11.5 fl (7.0-11.0); MONO # 0.4 (0.1-0.6); MONO % 3.7 % (1.0-6.0); RBC 4.1 10^6/uL (3.5-6.1); RED CELL DISTRIBUTION WIDTH 14.6 % (11.5-14.5); WHITE BLOOD COUNT 10.7 10^3/ul (4.5-11.0)
[2017-09-28 07:13] LABS: INR 2.01 (0.93-1.08); PROTHROMBIN TIME 23.4 SECONDS (9.4-12.5)
[2017-09-28 07:22] LABS: ALB/GLOB RATIO 1.1 (1.1-1.8); ALBUMIN 2.8 g/dL (3.0-4.8); ALT/SGPT 33 U/L (7-56); AST/SGOT 40 U/L (14-36); BLOOD UREA NITROGEN 22 mg/dL (7-21); CALCIUM 8.4 mg/dL (8.4-10.5); GFR AFRICAN-AMERICAN > 60; GFR NON-AFRICAN AMERICAN > 60
[2017-09-28] MEDS ORDERED: Pantoprazole 40 mg EC Tab PO SCH (07:30)
[2017-09-28] MEDS ORDERED: Potassium & Sodium Phosphate PO ONE (07:48)
--- NOTE | 2017-09-28 08:04 | CP.PCM.PN ---
Subjective - Date & Time of Evaluation Date of Evaluation: 09/28/17 Time of Evaluation: 07:00 - Subjective Subjective: Stable in ICU. She feels better. No CP or SOB. No syncope or LOC. The ICD was checked yesterday. No abnormal findings. No significant arrythmia detected. Her daughter is at the bedside. I discussed the results of tests to date with her. V/S noted. V. Paced. BP's better PE: Lungs: clear Cor.: S1S2 Abd.: soft Ext.: no edema Neuro.: alert I/O = 1900/700 Labs/ABGs noted: H/H 11.6/36.5, INR = 2.01, K+ = 4.1, Mg.++= 2.2 BC X 2 NG 24 hrs. CXR noted: NAD ECG: V. Paced CT Head: noted Bleeding scan noted. No bleeding detected Objective - Vital Signs/Intake and Output Vital Signs (last 24 hours): Temp Pulse Resp BP Pulse Ox 98.2 F 70 28 H 106/57 L 98 09/26/17 18:07 09/28/17 07:00 09/28/17 07:00 09/28/17 07:00 09/28/17 07:00 Intake and Output: 09/28/17 09/28/17 06:59 18:59 Intake Total 1900 Output Total 700 Balance 1200 - Medications Medications: Current Medications Aspirin (Aspirin Chewable) 81 mg PO DAILY [facility] Last Admin: 09/27/17 11:00 Dose: Not Given Atorvastatin Calcium (Lipitor) 10 mg PO HS [facility] Last Admin: 09/27/17 22:00 Dose: 10 mg Hydrocortisone (Anusol-Hc) 25 mg RC BID [facility] Last Admin: 09/27/17 18:02 Dose: 25 mg Sodium Chloride (Sodium Chloride 0.9%) 1,000 mls @ 100 mls/hr IV .Q10H [facility] Last Admin: 09/28/17 01:06 Dose: 100 mls/hr Meropenem (Merrem Iv 1 Gm Premix) 50 mls @ 100 mls/hr IVPB Q12 [facility] PRN Reason: Protocol Last Admin: 09/27/17 22:00 Dose: 100 mls/hr Magnesium Oxide (Mag-Ox) 400 mg PO BID [facility] Last Admin: 09/27/17 18:03 Dose: 400 mg Pantoprazole Sodium (Protonix Ec Tab) 40 mg PO ACB [facility] Warfarin Sodium (Coumadin) 2 mg PO 1800 [facility] PRN Reason: Protocol - Labs Labs: 09/28/17 06:20 09/28/17 06:20 PT 23.4 SECONDS (9.4-12.5) H 09/28/17 06:20 INR 2.01 (0.93-1.08) H 09/28/17 06:20 APTT 37.0 Seconds (25.1-36.5) H 09/28/17 06:20 Assessment and Plan - Assessment and Plan (Free Text) Assessment: Syncope at home Hypotension R/O infection/Sepsis Hypokalemia, hypomagnesemia CHF, diastolic Recent bronchitis/pneumonia A. Flutter with slow VR/VT episode.ICD implant with pocket hematoma, improving. Nl ICD fx and no arhythmia detected on interrogation 09/27/17 Brief CPR with rib fx. HLD Osteoporosis Surgeries: GB, Hysterectomy, Hernia Plan: ICU > tel bed. OOB as lon. Replace K+, Mg.++ Check cultures AB Hold lisinopril, Lasix, metoprolol for now Warfarin by daily INRs.: 2 mg. today. As per ID, Pulmonary, Intensivists, Dr. Ruggiero Will follow.
--- NOTE | 2017-09-28 08:41 | PN ---
DATE: 09/28/2017 SUBJECTIVE: She says she feels weak and tired. She states she does not feel well. She denies any chest pain. No shortness of breath. PHYSICAL EXAMINATION: VITAL SIGNS: Temperature is 98.2, pulse is 70, blood pressure is 106/57, respirations 20. GENERAL: The patient is lying in bed, flat, comfortable. HEENT: No oral lesion. Anicteric sclerae. Moist mucosa. NECK: No JVD, adenopathy, or thyromegaly. CARDIOVASCULAR: S1 and S2, regular. No murmurs, rubs, or gallops. LUNGS: Clear to auscultation bilaterally. No wheeze, rales, or rhonchi. ABDOMEN: Bowel sounds are positive, soft, nontender and nondistended. EXTREMITIES: No cyanosis, clubbing or edema. LABORATORY DATA: Creatinine is 0.7, potassium is 4.1. GI scan is normal. ASSESSMENT: 1. Sepsis. 2. Hypotension, improved. 3. Chronic congestive heart failure secondary to diastolic dysfunction. 4. Hypokalemia, improved. 5. Hypomagnesemia, improved. 6. Atrial fibrillation, on anticoagulation. 7. Osteoporosis. 8. Abdominal pain, resolved. 9. Elevated troponin. 10. 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 11. Pulmonary hypertension. 12. Tricuspid regurgitation, moderate. PLAN: The patient has improved blood pressure. She has aspirin. Coumadin is on hold because she had the GI bleeding yesterday. She is on Lipitor for dyslipidemia. She is receiving magnesium replacement. She is on meropenem for antibiotics. She is on IV fluids. I will discontinue the patient's IV fluids at this point, so that she does not become overloaded. The echo did show pulmonary hypertension. The patient also is being followed by Dr. Craven for GI bleed and Dr. Rodriguez for Cardiology. The patient had interrogation of her pacemaker and this does not show any significant abnormalities. I will get Pulmonary evaluation for the pulmonary hypertension. I am not sure if there is further intervention that needs to be done. I will order serology to rule out connective tissue disease. I did speak to the patient's daughter at the bedside to give her an update. The pulmonary hypertension may be the cause of the syncope, but she has other potential causes as well. She may have had vasovagal or orthostatic hypotension because she has been on diuretic therapy. Overall prognosis is guarded. Jw Ruggiero MD
--- NOTE | 2017-09-28 08:54 | CP.CCUPN ---
<Graciela Layne - Last Filed: 09/28/17 12:04> CCU Subjective - Physician Review Subjective (Free Text): 09/28/17 08:33 Patient seen and examined at bedside. Pt hypokalemic, hypocalcemic, hypomagnesemic overnight, repleted. Pt currently OOB to chair, denies weakness, further syncopal episodes, fever, chills, nausea, vomiting, abdominal pain, sob , leg swelling. Critical Care Time Spent (in minutes): 35 CCU Objective - Vital Signs / Intake & Output Vital Signs (Last 4 hours): Vital Signs Pulse Resp BP Pulse Ox 09/28/17 07:00 70 28 H 106/57 L 98 09/28/17 06:50 70 98 09/28/17 06:40 70 28 H 99 09/28/17 06:30 73 19 98 09/28/17 06:20 70 98 09/28/17 06:10 70 25 H 98 09/28/17 06:00 70 107/58 L 09/28/17 05:59 70 24 98 09/28/17 05:50 70 27 H 98 09/28/17 05:40 70 21 94 L 09/28/17 05:30 72 27 H 98 09/28/17 05:20 70 26 H 98 09/28/17 05:10 70 26 H 98 09/28/17 05:00 103/54 L 09/28/17 04:59 70 26 H 98 Intake and Output (Last 8hrs): Intake & Output 09/27/17 09/28/17 09/28/17 22:59 06:59 14:59 Intake Total 1900 Output Total 700 Balance 1200 Intake: IV 1400 Left Hand 1200 abx 200 Oral 500 Output: Urine 700 Urethral (Maldonado) 700 - Physical Exam Head: Positive for: Atraumatic, Normocephalic Pupils: Positive for: PERRL Extroacular Muscles: Positive for: EOMI Conjunctiva: Positive for: Normal Mouth: Positive for: Moist Mucous Membranes Neck: Positive for: Normal Range of Motion Respiratory/Chest: Positive for: Good Air Exchange, Other (mild bibasilar crackles, otherwise CTA). Negative for: Respiratory Distress, Accessory Muscle Use Cardiovascular: Positive for: Regular Rate and Rhythm, Normal S1, S2. Negative for: Murmurs Abdomen: Positive for: Normal Bowel Sounds. Negative for: Distention, Peritoneal Signs, Rebound, Guarding Back: Positive for: Normal Inspection Upper Extremity: Positive for: Normal Inspection. Negative for: Cyanosis, Edema Lower Extremity: Positive for: Normal Inspection, NORMAL PULSES, Capillary Refill < 2 s. Negative for: Edema, CALF TENDERNESS Neurological: Positive for: GCS=15, CN II-XII Intact, Speech Normal Skin: Positive for: Warm, Dry, Normal Color. Negative for: Rashes Psychiatric: Positive for: Alert, Oriented x 3 - Medications Active Medications: Active Medications Generic Name Dose Route Start Last Admin Trade Name Freq PRN Reason Stop Dose Admin Aspirin 81 mg 09/27/17 10:00 09/27/17 11:00 Aspirin Chewable PO Not Given DAILY JOAO Atorvastatin Calcium 10 mg 09/27/17 22:00 09/27/17 22:00 Lipitor PO 10 mg HS JOAO Administration Hydrocortisone 25 mg 09/27/17 18:00 09/27/17 18:02 Anusol-Hc RC 25 mg BID JOAO Administration Meropenem 50 mls @ 100 mls/hr 09/27/17 11:30 09/27/17 22:00 Merrem Iv 1 Gm Premix IVPB 100 mls/hr Q12 JOAO Administration Protocol Magnesium Oxide 400 mg 09/27/17 10:00 09/27/17 18:03 Mag-Ox PO 400 mg BID JOAO Administration Pantoprazole Sodium 40 mg 09/28/17 07:30 Protonix Ec Tab PO ACB JOAO Warfarin Sodium 2 mg 09/27/17 18:00 Coumadin PO 1800 [facility] Protocol - Patient Studies Lab Studies: Lab Studies 09/28/17 09/28/17 09/28/17 Range/Units 06:20 06:20 06:20 WBC 10.7 (4.5-11.0) 10^3/ul RBC 4.10 (3.5-6.1) 10^6/uL Hgb 11.6 L D (12.0-16.0) g/dL Hct 36.5 (36.0-48.0) % MCV 89.0 (80.0-105.0) fl MCH 28.3 (25.0-35.0) pg MCHC 31.8 (31.0-37.0) g/dl RDW 14.6 H (11.5-14.5) % Plt Count 107 L (120.0-450.0) 10^3/uL MPV 11.5 H (7.0-11.0) fl Gran % 84.5 H (50.0-68.0) % Lymph % (Auto) 10.5 L (22.0-35.0) % Sharp % (Auto) 3.7 (1.0-6.0) % Eos % (Auto) 1.3 L (1.5-5.0) % Baso % (Auto) 0.0 (0.0-3.0) % Gran # 9.06 H (1.4-6.5) Lymph # (Auto) 1.1 L (1.2-3.4) Sharp # (Auto) 0.4 (0.1-0.6) Eos # (Auto) 0.1 (0.0-0.7) Baso # (Auto) 0.00 (0.0-2.0) K/mm3 PT 23.4 H (9.4-12.5) SECONDS INR 2.01 H (0.93-1.08) APTT 37.0 H (25.1-36.5) Seconds Sodium 139 (132-148) mmol/L Potassium 4.1 (3.6-5.0) mmol/L Chloride 100 (98-107) mmol/L Carbon Dioxide 34 H (21-33) mmol/L Anion Gap 8 L (10-20) BUN 22 H (7-21) mg/dL Creatinine 0.7 (0.7-1.2) mg/dl Est GFR ( Amer) > 60 Est GFR (Non-Af Amer) > 60 Random Glucose 116 H (70-110) mg/dL Calcium 8.4 (8.4-10.5) mg/dL Phosphorus 2.3 L (2.5-4.5) mg/dL Magnesium 2.2 (1.7-2.2) mg/dL Total Bilirubin 1.3 (0.2-1.3) mg/dL AST 40 H D (14-36) U/L ALT 33 (7-56) U/L Alkaline Phosphatase 66 (38-126) U/L Troponin I ng/mL Total Protein 5.4 L (5.8-8.3) g/dL Albumin 2.8 L (3.0-4.8) g/dL Globulin 2.6 gm/dL Albumin/Globulin Ratio 1.1 (1.1-1.8) Procalcitonin (0.19-0.49) NG/ML 09/27/17 09/27/17 09/27/17 Range/Units 23:50 23:50 23:50 WBC 9.9 D (4.5-11.0) 10^3/ul RBC 3.16 L (3.5-6.1) 10^6/uL Hgb 9.3 L D (12.0-16.0) g/dL Hct 28.2 L (36.0-48.0) % MCV 89.2 (80.0-105.0) fl MCH 29.4 (25.0-35.0) pg MCHC 33.0 (31.0-37.0) g/dl RDW 14.4 (11.5-14.5) % Plt Count 88 L (120.0-450.0) 10^3/uL MPV 12.0 H (7.0-11.0) fl Gran % 84.9 H (50.0-68.0) % Lymph % (Auto) 9.8 L (22.0-35.0) % Sharp % (Auto) 3.6 (1.0-6.0) % Eos % (Auto) 1.7 (1.5-5.0) % Baso % (Auto) 0.0 (0.0-3.0) % Gran # 8.44 H (1.4-6.5) Lymph # (Auto) 1.0 L (1.2-3.4) Sharp # (Auto) 0.4 (0.1-0.6) Eos # (Auto) 0.2 (0.0-0.7) Baso # (Auto) 0.00 (0.0-2.0) K/mm3 PT (9.4-12.5) SECONDS INR (0.93-1.08) APTT (25.1-36.5) Seconds Sodium 142 (132-148) mmol/L Potassium 2.8 L* (3.6-5.0) mmol/L Chloride 109 H (98-107) mmol/L Carbon Dioxide 28 (21-33) mmol/L Anion Gap 7 L (10-20) BUN 22 H (7-21) mg/dL Creatinine 0.6 L (0.7-1.2) mg/dl Est GFR ( Amer) > 60 Est GFR (Non-Af Amer) > 60 Random Glucose 97 (70-110) mg/dL Calcium 6.0 L* (8.4-10.5) mg/dL Phosphorus (2.5-4.5) mg/dL Magnesium 1.5 L (1.7-2.2) mg/dL Total Bilirubin 0.9 (0.2-1.3) mg/dL AST 27 (14-36) U/L ALT 37 (7-56) U/L Alkaline Phosphatase 45 (38-126) U/L Troponin I ng/mL Total Protein 3.9 L (5.8-8.3) g/dL Albumin 1.9 L (3.0-4.8) g/dL Globulin 2.0 gm/dL Albumin/Globulin Ratio 0.9 L (1.1-1.8) Procalcitonin (0.19-0.49) NG/ML 09/27/17 09/27/17 09/27/17 Range/Units 17:15 12:05 06:00 WBC 14.9 H (4.5-11.0) 10^3/ul RBC 4.08 (3.5-6.1) 10^6/uL Hgb 11.7 L (12.0-16.0) g/dL Hct 35.8 L (36.0-48.0) % MCV 87.7 (80.0-105.0) fl MCH 28.7 (25.0-35.0) pg MCHC 32.7 (31.0-37.0) g/dl RDW 14.3 (11.5-14.5) % Plt Count 119 L (120.0-450.0) 10^3/uL MPV 12.3 H (7.0-11.0) fl Gran % 87.7 H (50.0-68.0) % Lymph % (Auto) 8.2 L (22.0-35.0) % Sharp % (Auto) 3.8 (1.0-6.0) % Eos % (Auto) 0.3 L (1.5-5.0) % Baso % (Auto) 0.0 (0.0-3.0) % Gran # 13.09 H (1.4-6.5) Lymph # (Auto) 1.2 (1.2-3.4) Sharp # (Auto) 0.6 (0.1-0.6) Eos # (Auto) 0.0 (0.0-0.7) Baso # (Auto) 0.00 (0.0-2.0) K/mm3 PT (9.4-12.5) SECONDS INR (0.93-1.08) APTT (25.1-36.5) Seconds Sodium (132-148) mmol/L Potassium 3.4 L (3.6-5.0) mmol/L Chloride (98-107) mmol/L Carbon Dioxide (21-33) mmol/L Anion Gap (10-20) BUN (7-21) mg/dL Creatinine (0.7-1.2) mg/dl Est GFR ( Amer) Est GFR (Non-Af Amer) Random Glucose (70-110) mg/dL Calcium (8.4-10.5) mg/dL Phosphorus (2.5-4.5) mg/dL Magnesium (1.7-2.2) mg/dL Total Bilirubin (0.2-1.3) mg/dL AST (14-36) U/L ALT (7-56) U/L Alkaline Phosphatase (38-126) U/L Troponin I 0.27 H* D ng/mL Total Protein (5.8-8.3) g/dL Albumin (3.0-4.8) g/dL Globulin gm/dL Albumin/Globulin Ratio (1.1-1.8) Procalcitonin (0.19-0.49) NG/ML 09/26/17 Range/Units 19:00 WBC (4.5-11.0) 10^3/ul RBC (3.5-6.1) 10^6/uL Hgb (12.0-16.0) g/dL Hct (36.0-48.0) % MCV (80.0-105.0) fl MCH (25.0-35.0) pg MCHC (31.0-37.0) g/dl RDW (11.5-14.5) % Plt Count (120.0-450.0) 10^3/uL MPV (7.0-11.0) fl Gran % (50.0-68.0) % Lymph % (Auto) (22.0-35.0) % Sharp % (Auto) (1.0-6.0) % Eos % (Auto) (1.5-5.0) % Baso % (Auto) (0.0-3.0) % Gran # (1.4-6.5) Lymph # (Auto) (1.2-3.4) Sharp # (Auto) (0.1-0.6) Eos # (Auto) (0.0-0.7) Baso # (Auto) (0.0-2.0) K/mm3 PT (9.4-12.5) SECONDS INR (0.93-1.08) APTT (25.1-36.5) Seconds Sodium (132-148) mmol/L Potassium (3.6-5.0) mmol/L Chloride (98-107) mmol/L Carbon Dioxide (21-33) mmol/L Anion Gap (10-20) BUN (7-21) mg/dL Creatinine (0.7-1.2) mg/dl Est GFR ( Amer) Est GFR (Non-Af Amer) Random Glucose (70-110) mg/dL Calcium (8.4-10.5) mg/dL Phosphorus (2.5-4.5) mg/dL Magnesium (1.7-2.2) mg/dL Total Bilirubin (0.2-1.3) mg/dL AST (14-36) U/L ALT (7-56) U/L Alkaline Phosphatase (38-126) U/L Troponin I ng/mL Total Protein (5.8-8.3) g/dL Albumin (3.0-4.8) g/dL Globulin gm/dL Albumin/Globulin Ratio (1.1-1.8) Procalcitonin 0.05 L (0.19-0.49) NG/ML Laboratory Results - last 24 hr 09/26/17 09/27/17 09/27/17 19:00 06:00 12:05 WBC 14.9 H RBC 4.08 Hgb 11.7 L Hct 35.8 L MCV 87.7 MCH 28.7 MCHC 32.7 RDW 14.3 Plt Count 119 L MPV 12.3 H Gran % 87.7 H Lymph % (Auto) 8.2 L Sharp % (Auto) 3.8 Eos % (Auto) 0.3 L Baso % (Auto) 0.0 Gran # 13.09 H Lymph # (Auto) 1.2 Sharp # (Auto) 0.6 Eos # (Auto) 0.0 Baso # (Auto) 0.00 PT INR APTT Sodium Potassium Chloride Carbon Dioxide Anion Gap BUN Creatinine Est GFR ( Amer) Est GFR (Non-Af Amer) Random Glucose Calcium Phosphorus Magnesium Total Bilirubin AST ALT Alkaline Phosphatase Troponin I 0.27 H* D Total Protein Albumin Globulin Albumin/Globulin Ratio Procalcitonin 0.05 L 09/27/17 09/27/17 09/27/17 17:15 23:50 23:50 WBC 9.9 D RBC 3.16 L Hgb 9.3 L D Hct 28.2 L MCV 89.2 MCH 29.4 MCHC 33.0 RDW 14.4 Plt Count 88 L MPV 12.0 H Gran % 84.9 H Lymph % (Auto) 9.8 L Sharp % (Auto) 3.6 Eos % (Auto) 1.7 Baso % (Auto) 0.0 Gran # 8.44 H Lymph # (Auto) 1.0 L Sharp # (Auto) 0.4 Eos # (Auto) 0.2 Baso # (Auto) 0.00 PT INR APTT Sodium 142 Potassium 3.4 L 2.8 L* Chloride 109 H Carbon Dioxide 28 Anion Gap 7 L BUN 22 H Creatinine 0.6 L Est GFR ( Amer) > 60 Est GFR (Non-Af Amer) > 60 Random Glucose 97 Calcium 6.0 L* Phosphorus Magnesium Total Bilirubin 0.9 AST 27 ALT 37 Alkaline Phosphatase 45 Troponin I Total Protein 3.9 L Albumin 1.9 L Globulin 2.0 Albumin/Globulin Ratio 0.9 L Procalcitonin 09/27/17 09/28/17 09/28/17 23:50 06:20 06:20 WBC 10.7 RBC 4.10 Hgb 11.6 L D Hct 36.5 MCV 89.0 MCH 28.3 MCHC 31.8 RDW 14.6 H Plt Count 107 L MPV 11.5 H Gran % 84.5 H Lymph % (Auto) 10.5 L Sharp % (Auto) 3.7 Eos % (Auto) 1.3 L Baso % (Auto) 0.0 Gran # 9.06 H Lymph # (Auto) 1.1 L Sharp # (Auto) 0.4 Eos # (Auto) 0.1 Baso # (Auto) 0.00 PT INR APTT Sodium 139 Potassium 4.1 Chloride 100 Carbon Dioxide 34 H Anion Gap 8 L BUN 22 H Creatinine 0.7 Est GFR ( Amer) > 60 Est GFR (Non-Af Amer) > 60 Random Glucose 116 H Calcium 8.4 Phosphorus 2.3 L Magnesium 1.5 L 2.2 Total Bilirubin 1.3 AST 40 H D ALT 33 Alkaline Phosphatase 66 Troponin I Total Protein 5.4 L Albumin 2.8 L Globulin 2.6 Albumin/Globulin Ratio 1.1 Procalcitonin 09/28/17 06:20 WBC RBC Hgb Hct MCV MCH MCHC RDW Plt Count MPV Gran % Lymph % (Auto) Sharp % (Auto) Eos % (Auto) Baso % (Auto) Gran # Lymph # (Auto) Sharp # (Auto) Eos # (Auto) Baso # (Auto) PT 23.4 H INR 2.01 H APTT 37.0 H Sodium Potassium Chloride Carbon Dioxide Anion Gap BUN Creatinine Est GFR ( Amer) Est GFR (Non-Af Amer) Random Glucose Calcium Phosphorus Magnesium Total Bilirubin AST ALT Alkaline Phosphatase Troponin I Total Protein Albumin Globulin Albumin/Globulin Ratio Procalcitonin Fingerstick Blood Sugar Results: 164 Review of Systems - Review of Systems All systems: reviewed and no additional remarkable complaints except Review of Systems: as per subjective portion of note Critical Care Progress Note - Nutrition Nutrition: Nutrition Category Date Time Status Heart Healthy Diet [DIET] Diets 09/26/17 Breakfast Ordered Assessment/Plan - Assessment and Plan (Free Text) Assessment: 82 year old female with PMH afib on Coumadin, 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 BP now stable, developed 1-2 bloody BM (likely hemorrhoidal ), stable H/H, bleeding scan negative for active GI bleed. Discussed with PMD Dr Ruggiero, will transfer to Telemetry: Neuro: - AAOx3 - Head CT neg for acute changes. - continue to monitor for mental status changes Cardio: - Syncopal episodes 2/2 pulm HTN vs medication induced (lasix) vs orthostatic - Pacemaker interrogated, no tachyarrhythmias noted. - BP stable. - Dr Rodriguez consulted. Appreciate recs. - troponin elevated 0.47. likely 2/2 chronic CVD/afib. - eCHO 09/2017: EF 50%. Mod aortic valve stenosis. Mild to mod MR. Mod-severe pulm HTN. - EKG HR 70, paced. No ST-segment elevations or depressions, no T-wave inversions, normal intervals. - ASA 325 mg po given iN ED. ASA 81 mg daily. - Coumadin on hold due to GI bleed, can continue as per primary. - Will hold home BB, MARCELL-i, lasix due to low BP - home lipitor - Maintain MAP>65 - O2 prn - CT imaging shows cardiomegaly with pericardial effusion. Discussed with Dr Rodriguez, no plan for right heart catheterization. Pulm: - CXR neg for acute infiltrates. Moderate cardiomegaly. - Saturating well on RA - maintain SpO2 above 95% ID: - afebrile, no leukocytosis - CXR neg for acute infiltrates. UA neg for infection. F/u urine culture - blood cultures 09/26 (07/06): NTD - ID consulted. appreciate recs. - On Merrem Renal: - Stable BUN/Cr - Mag oxide 400 mg PO BID - Daily cmp - replete electrolytes as needed Heme: - Iron and ferritin elevated, TIBC normal, concern for hemochromatosis, hgb 11.7 (at baseline) - Dr Laureano and Dr Craven consulted, as per primary. F/u recs. - Daily cbc Endo: - Maintain euglycemia GI: - protonix discontinued. Switched to pepcid in setting of low platelets. - HHD - 2 bright red bloody BMs yesterday with regular BM this morning, pt has hx of hemorrhoids, anusol and sitz baths, stable H/H - GI on board. DVT ppx: SCDs GI PPX: pepcid Case seen and discussed with Dr Martins. - Date & Time Date: 09/28/17 Time: 12:08 <Jag Martins B - Last Filed: 09/28/17 15:51> CCU Objective - Vital Signs / Intake & Output Vital Signs (Last 4 hours): Vital Signs Pulse Resp BP Pulse Ox 09/28/17 12:00 70 20 135/60 93 L Intake and Output (Last 8hrs): Intake & Output 09/28/17 09/28/17 09/28/17 06:59 14:59 22:59 Intake Total 1900 Output Total 700 Balance 1200 Intake: IV 1400 Left Hand 1200 abx 200 Oral 500 Output: Urine 700 Urethral (Maldonado) 700 - Medications Active Medications: Active Medications Generic Name Dose Route Start Last Admin Trade Name Freq PRN Reason Stop Dose Admin Aspirin 81 mg 09/27/17 10:00 09/27/17 11:00 Aspirin Chewable PO Not Given DAILY [facility] Atorvastatin Calcium 10 mg 09/27/17 22:00 09/27/17 22:00 Lipitor PO 10 mg HS JOAO Administration Famotidine 40 mg 09/28/17 22:00 Pepcid PO HS JOAO Hydrocortisone 25 mg 09/27/17 18:00 09/28/17 11:22 Anusol-Hc RC 25 mg BID JOAO Administration Meropenem 50 mls @ 100 mls/hr 09/28/17 14:00 Merrem Iv 1 Gm Premix IVPB Q8 [facility] Protocol Magnesium Oxide 400 mg 09/27/17 10:00 09/28/17 11:22 Mag-Ox PO 400 mg BID JOAO Administration Warfarin Sodium 2 mg 09/27/17 18:00 Coumadin PO 1800 [facility] Protocol - Patient Studies Lab Studies: Microbiology Studies 09/27/17 13:34 C. difficile Antigen & Toxin A,B (M - Final Stool 09/26/17 18:10 MRSA Culture (Admit) - Final Naris MRSA NOT DETECTED 09/26/17 21:30 Urine Culture - Final Urine,Clean Catch No Growth (<1,000 CFU/ML) Lab Studies 09/28/17 09/28/17 09/28/17 Range/Units 08:00 06:20 06:20 WBC (4.5-11.0) 10^3/ul RBC (3.5-6.1) 10^6/uL Hgb (12.0-16.0) g/dL Hct (36.0-48.0) % MCV (80.0-105.0) fl MCH (25.0-35.0) pg MCHC (31.0-37.0) g/dl RDW (11.5-14.5) % Plt Count (120.0-450.0) 10^3/uL MPV (7.0-11.0) fl Gran % (50.0-68.0) % Lymph % (Auto) (22.0-35.0) % Sharp % (Auto) (1.0-6.0) % Eos % (Auto) (1.5-5.0) % Baso % (Auto) (0.0-3.0) % Gran # (1.4-6.5) Lymph # (Auto) (1.2-3.4) Sharp # (Auto) (0.1-0.6) Eos # (Auto) (0.0-0.7) Baso # (Auto) (0.0-2.0) K/mm3 ESR (0.0-20.0) mm/hr PT 23.4 H (9.4-12.5) SECONDS INR 2.01 H (0.93-1.08) APTT 37.0 H (25.1-36.5) Seconds Sodium 139 (132-148) mmol/L Potassium 4.1 (3.6-5.0) mmol/L Chloride 100 (98-107) mmol/L Carbon Dioxide 34 H (21-33) mmol/L Anion Gap 8 L (10-20) BUN 22 H (7-21) mg/dL Creatinine 0.7 (0.7-1.2) mg/dl Est GFR ( Amer) > 60 Est GFR (Non-Af Amer) > 60 Random Glucose 116 H (70-110) mg/dL Calcium 8.4 (8.4-10.5) mg/dL Phosphorus 2.3 L (2.5-4.5) mg/dL Magnesium 2.2 (1.7-2.2) mg/dL Total Bilirubin 1.3 (0.2-1.3) mg/dL AST 40 H D (14-36) U/L ALT 33 (7-56) U/L Alkaline Phosphatase 66 (38-126) U/L Total Protein 5.4 L (5.8-8.3) g/dL Albumin 2.8 L (3.0-4.8) g/dL Globulin 2.6 gm/dL Albumin/Globulin Ratio 1.1 (1.1-1.8) Hepatitis A IgM Ab Negative (NEGATIVE) Hep Bs Antigen Negative (NEGATIVE) Hep B Core IgM Ab Negative (NEGATIVE) Hepatitis C Antibody Negative (NEGATIVE) 09/28/17 09/28/17 09/27/17 Range/Units 06:20 06:00 23:50 WBC 10.7 (4.5-11.0) 10^3/ul RBC 4.10 (3.5-6.1) 10^6/uL Hgb 11.6 L D (12.0-16.0) g/dL Hct 36.5 (36.0-48.0) % MCV 89.0 (80.0-105.0) fl MCH 28.3 (25.0-35.0) pg MCHC 31.8 (31.0-37.0) g/dl RDW 14.6 H (11.5-14.5) % Plt Count 107 L (120.0-450.0) 10^3/uL MPV 11.5 H (7.0-11.0) fl Gran % 84.5 H (50.0-68.0) % Lymph % (Auto) 10.5 L (22.0-35.0) % Sharp % (Auto) 3.7 (1.0-6.0) % Eos % (Auto) 1.3 L (1.5-5.0) % Baso % (Auto) 0.0 (0.0-3.0) % Gran # 9.06 H (1.4-6.5) Lymph # (Auto) 1.1 L (1.2-3.4) Sharp # (Auto) 0.4 (0.1-0.6) Eos # (Auto) 0.1 (0.0-0.7) Baso # (Auto) 0.00 (0.0-2.0) K/mm3 ESR 10 (0.0-20.0) mm/hr PT (9.4-12.5) SECONDS INR (0.93-1.08) APTT (25.1-36.5) Seconds Sodium (132-148) mmol/L Potassium (3.6-5.0) mmol/L Chloride (98-107) mmol/L Carbon Dioxide (21-33) mmol/L Anion Gap (10-20) BUN (7-21) mg/dL Creatinine (0.7-1.2) mg/dl Est GFR ( Amer) Est GFR (Non-Af Amer) Random Glucose (70-110) mg/dL Calcium (8.4-10.5) mg/dL Phosphorus (2.5-4.5) mg/dL Magnesium 1.5 L (1.7-2.2) mg/dL Total Bilirubin (0.2-1.3) mg/dL AST (14-36) U/L ALT (7-56) U/L Alkaline Phosphatase (38-126) U/L Total Protein (5.8-8.3) g/dL Albumin (3.0-4.8) g/dL Globulin gm/dL Albumin/Globulin Ratio (1.1-1.8) Hepatitis A IgM Ab (NEGATIVE) Hep Bs Antigen (NEGATIVE) Hep B Core IgM Ab (NEGATIVE) Hepatitis C Antibody (NEGATIVE) 09/27/17 09/27/17 09/27/17 Range/Units 23:50 23:50 17:15 WBC 9.9 D (4.5-11.0) 10^3/ul RBC 3.16 L (3.5-6.1) 10^6/uL Hgb 9.3 L D (12.0-16.0) g/dL Hct 28.2 L (36.0-48.0) % MCV 89.2 (80.0-105.0) fl MCH 29.4 (25.0-35.0) pg MCHC 33.0 (31.0-37.0) g/dl RDW 14.4 (11.5-14.5) % Plt Count 88 L (120.0-450.0) 10^3/uL MPV 12.0 H (7.0-11.0) fl Gran % 84.9 H (50.0-68.0) % Lymph % (Auto) 9.8 L (22.0-35.0) % Sharp % (Auto) 3.6 (1.0-6.0) % Eos % (Auto) 1.7 (1.5-5.0) % Baso % (Auto) 0.0 (0.0-3.0) % Gran # 8.44 H (1.4-6.5) Lymph # (Auto) 1.0 L (1.2-3.4) Sharp # (Auto) 0.4 (0.1-0.6) Eos # (Auto) 0.2 (0.0-0.7) Baso # (Auto) 0.00 (0.0-2.0) K/mm3 ESR (0.0-20.0) mm/hr PT (9.4-12.5) SECONDS INR (0.93-1.08) APTT (25.1-36.5) Seconds Sodium 142 (132-148) mmol/L Potassium 2.8 L* 3.4 L (3.6-5.0) mmol/L Chloride 109 H (98-107) mmol/L Carbon Dioxide 28 (21-33) mmol/L Anion Gap 7 L (10-20) BUN 22 H (7-21) mg/dL Creatinine 0.6 L (0.7-1.2) mg/dl Est GFR ( Amer) > 60 Est GFR (Non-Af Amer) > 60 Random Glucose 97 (70-110) mg/dL Calcium 6.0 L* (8.4-10.5) mg/dL Phosphorus (2.5-4.5) mg/dL Magnesium (1.7-2.2) mg/dL Total Bilirubin 0.9 (0.2-1.3) mg/dL AST 27 (14-36) U/L ALT 37 (7-56) U/L Alkaline Phosphatase 45 (38-126) U/L Total Protein 3.9 L (5.8-8.3) g/dL Albumin 1.9 L (3.0-4.8) g/dL Globulin 2.0 gm/dL Albumin/Globulin Ratio 0.9 L (1.1-1.8) Hepatitis A IgM Ab (NEGATIVE) Hep Bs Antigen (NEGATIVE) Hep B Core IgM Ab (NEGATIVE) Hepatitis C Antibody (NEGATIVE) Laboratory Results - last 24 hr 09/27/17 09/27/17 09/27/17 17:15 23:50 23:50 WBC 9.9 D RBC 3.16 L Hgb 9.3 L D Hct 28.2 L MCV 89.2 MCH 29.4 MCHC 33.0 RDW 14.4 Plt Count 88 L MPV 12.0 H Gran % 84.9 H Lymph % (Auto) 9.8 L Sharp % (Auto) 3.6 Eos % (Auto) 1.7 Baso % (Auto) 0.0 Gran # 8.44 H Lymph # (Auto) 1.0 L Sharp # (Auto) 0.4 Eos # (Auto) 0.2 Baso # (Auto) 0.00 ESR PT INR APTT Sodium 142 Potassium 3.4 L 2.8 L* Chloride 109 H Carbon Dioxide 28 Anion Gap 7 L BUN 22 H Creatinine 0.6 L Est GFR ( Amer) > 60 Est GFR (Non-Af Amer) > 60 Random Glucose 97 Calcium 6.0 L* Phosphorus Magnesium Total Bilirubin 0.9 AST 27 ALT 37 Alkaline Phosphatase 45 Total Protein 3.9 L Albumin 1.9 L Globulin 2.0 Albumin/Globulin Ratio 0.9 L Hepatitis A IgM Ab Hep Bs Antigen Hep B Core IgM Ab Hepatitis C Antibody 09/27/17 09/28/17 09/28/17 23:50 06:00 06:20 WBC 10.7 RBC 4.10 Hgb 11.6 L D Hct 36.5 MCV 89.0 MCH 28.3 MCHC 31.8 RDW 14.6 H Plt Count 107 L MPV 11.5 H Gran % 84.5 H Lymph % (Auto) 10.5 L Sharp % (Auto) 3.7 Eos % (Auto) 1.3 L Baso % (Auto) 0.0 Gran # 9.06 H Lymph # (Auto) 1.1 L Sharp # (Auto) 0.4 Eos # (Auto) 0.1 Baso # (Auto) 0.00 ESR 10 PT INR APTT Sodium Potassium Chloride Carbon Dioxide Anion Gap BUN Creatinine Est GFR ( Amer) Est GFR (Non-Af Amer) Random Glucose Calcium Phosphorus Magnesium 1.5 L Total Bilirubin AST ALT Alkaline Phosphatase Total Protein Albumin Globulin Albumin/Globulin Ratio Hepatitis A IgM Ab Hep Bs Antigen Hep B Core IgM Ab Hepatitis C Antibody 09/28/17 09/28/17 09/28/17 06:20 06:20 08:00 WBC RBC Hgb Hct MCV MCH MCHC RDW Plt Count MPV Gran % Lymph % (Auto) Sharp % (Auto) Eos % (Auto) Baso % (Auto) Gran # Lymph # (Auto) Sharp # (Auto) Eos # (Auto) Baso # (Auto) ESR PT 23.4 H INR 2.01 H APTT 37.0 H Sodium 139 Potassium 4.1 Chloride 100 Carbon Dioxide 34 H Anion Gap 8 L BUN 22 H Creatinine 0.7 Est GFR ( Amer) > 60 Est GFR (Non-Af Amer) > 60 Random Glucose 116 H Calcium 8.4 Phosphorus 2.3 L Magnesium 2.2 Total Bilirubin 1.3 AST 40 H D ALT 33 Alkaline Phosphatase 66 Total Protein 5.4 L Albumin 2.8 L Globulin 2.6 Albumin/Globulin Ratio 1.1 Hepatitis A IgM Ab Negative Hep Bs Antigen Negative Hep B Core IgM Ab Negative Hepatitis C Antibody Negative Critical Care Progress Note - Nutrition Nutrition: Nutrition Category Date Time Status Heart Healthy Diet [DIET] Diets 09/26/17 Breakfast Ordered Attending/Attestation - Attestation I have personally seen and examined this patient.: Yes I have fully participated in the care of the patient.: Yes I have reviewed all pertinent clinical information: Yes Notes (Text): 09/28/17 15:[address] martins's note
[2017-09-28] MEDS: Magnesium Oxide 400 mg Tab UD PO SCH ×2 (11:22→17:33)
--- NOTE | 2017-09-28 12:33 | CP.PCM.PN ---
Subjective - Date & Time of Evaluation Date of Evaluation: 09/28/17 Time of Evaluation: 10:00 - Subjective Subjective: S&E earlier today , daughter at bedside. Patient had brown soft stool this a.m. that was observed. No melena or bright red blood. Patient abdominal pain has improved. Tolerating oral intake but not much of an appetite. No acute overnight events reported. The patient bleeding scan was negative. No new compliants. Objective - Vital Signs/Intake and Output Vital Signs (last 24 hours): Temp Pulse Resp BP Pulse Ox 98.2 F 70 20 135/60 93 L 09/26/17 18:07 09/28/17 12:00 09/28/17 12:00 09/28/17 12:00 09/28/17 12:00 Intake and Output: 09/28/17 09/28/17 06:59 18:59 Intake Total 1900 Output Total 700 Balance 1200 - Medications Medications: Current Medications Aspirin (Aspirin Chewable) 81 mg PO DAILY [facility] Last Admin: 09/27/17 11:00 Dose: Not Given Atorvastatin Calcium (Lipitor) 10 mg PO HS [facility] Last Admin: 09/27/17 22:00 Dose: 10 mg Famotidine (Pepcid) 40 mg PO HS [facility] Hydrocortisone (Anusol-Hc) 25 mg RC BID [facility] Last Admin: 09/28/17 11:22 Dose: 25 mg Meropenem (Merrem Iv 1 Gm Premix) 50 mls @ 100 mls/hr IVPB Q8 [facility] PRN Reason: Protocol Magnesium Oxide (Mag-Ox) 400 mg PO BID [facility] Last Admin: 09/28/17 11:22 Dose: 400 mg Warfarin Sodium (Coumadin) 2 mg PO 1800 [facility] PRN Reason: Protocol - Labs Labs: 09/28/17 06:20 09/28/17 06:20 PT 23.4 SECONDS (9.4-12.5) H 09/28/17 06:20 INR 2.01 (0.93-1.08) H 09/28/17 06:20 APTT 37.0 Seconds (25.1-36.5) H 09/28/17 06:20 - Constitutional Appears: No Acute Distress - Head Exam Head Exam: NORMOCEPHALIC - Eye Exam Eye Exam: Scleral icterus. absent: Normal appearance - ENT Exam ENT Exam: Mucous Membranes Moist - Neck Exam Neck Exam: Normal Inspection - Respiratory Exam Respiratory Exam: Clear to Ausculation Bilateral, NORMAL BREATHING PATTERN. absent: Respiratory Distress - Cardiovascular Exam Cardiovascular Exam: +S1, +S2 - GI/Abdominal Exam GI & Abdominal Exam: Soft, Normal Bowel Sounds. absent: Guarding, Tenderness, Rebound - Rectal Exam Rectal Exam: Hemorrhoids (no bleeding). absent: Black Stool, Bloody Stool Additional comments: no papable mass - Extremities Exam Extremities Exam: Pedal Edema (mild). absent: Calf Tenderness - Neurological Exam Neurological Exam: Alert, Awake, Oriented x3 - Skin Skin Exam: Dry, Warm Assessment and Plan - Assessment and Plan (Free Text) Assessment: Assessment: Syncopal episodes Status post recent pacemaker Exacerbation of CHF Elevated iron studies, rule out hemochromatosis GI bleed, positive guaiac but also had blood per rectum, ? Hemorrhoids, ? Ischemic colitis, ct scan no inflammation but limited study no contrast, no further episodes Atrial fibrillation on Coumadin History of colon polyp Diverticulosis Mildly elevated liver enzymes, may be secondary to hepatic congestion History of cholecystectomy Elevated troponin Leukocytosis Plan: follow-up hemochromatosis splitting machine tender H&H Continue GI prophylaxis on Anusol Monitor LFTs On IV antibiotics ASA & Coumadin on hold FU Cdiff/ hepatitis panel as per ICU team hematology FU Seen and discussed with Dr. Craven.
[2017-09-28 12:48] LABS: HEPATITIS B SURFACE AG Negative (NEGATIVE)
[2017-09-28 12:53] LABS: HEPATITIS A IGM NEGATIVE (NEGATIVE)
--- NOTE | 2017-09-28 12:54 | PN ---
DATE: 09/28/2017 SUBJECTIVE: The patient is seen and examined at bedside. She is comfortable. She talks in full sentences. She is not in respiratory or otherwise distress. PHYSICAL EXAMINATION: VITAL SIGNS: Blood pressure 115/43 (mean arterial pressure 72), heart rate 70, oxygen saturation 92%, respiratory rate 19 to 20. ENT: Head and neck atraumatic. LUNGS: Clear to auscultation bilaterally. HEART: Regular rate and rhythm. S1 and S2 normal. ABDOMEN: Soft, nontender and nondistended. MUSCULOSKELETAL: No C/C/E. NEURO: The patient moves all extremities spontaneously. SKIN: Moist. PSYCHIATRIC: The patient is alert and oriented x3. LABORATORY DATA: WBC 10.7, hemoglobin 11.6, platelet count 107. Sodium 139, potassium 4.1, chloride 100, carbon dioxide 34, BUN 22, creatinine 0.7, down from 1.1 on admission, glucose 116, AST 40, ALT 33, bilirubin 1.3. Procalcitonin 0.05. Troponin 0.27, down from 0.47. MEDICATIONS: Aspirin, Lipitor, hydrocortisone rectum suppository, magnesium, meropenem, Protonix, normal saline 100 mL/hour. ASSESSMENT AND PLAN: This is an 82-year-old lady who presented 2 days ago with recurrent syncopal episode in the setting of low systemic blood pressure and underlying severe pulmonary hypertension with RV failure. It is possible to suspect that some dehydration or infectious process (the patient initially had some leukocytosis) led to systemic hypotension to the point where right chambers pressure may have exceeded systemic pressure at which point the patient syncopized due to temporarily ensued right to left shunt. Alternatively, brisk increase in PAP/PVR may have dropped LV preload/CO and caused syncope. The patient was treated with IV fluids, antibiotics and holding other antihypertensive medication. Her white cell count responded well, her systemic hypotension resolved, the patient reports feeling better. Blood culture from 2 days ago are negative and urine is negative for leukocyte esterase as well as urine nitrite. The patient does have a pacemaker, which was interrogated without identification of any dysfunction or life-threatening arrhythmias. At the present time, the patient is hemodynamically and respiratory melendez stable. I would continue to target euvolemia, euglycemia, normothermia and oxygen saturation more than 90%. I spoke with Dr. Rodriguez, who is aware about pulmonary hypertension, however, whether or not the patient would require right heart catheterization, will be deferred to Cardiology Service. Mild elevation in LFTs might be attributed to some congestive hepatopathy, but primary liver process can not be excluded. I will check hepatitis profile and rheumatologic screen. V/Q scan can be considered in 48 hours as GI bleeding scan was done yesterday. Discussed with Dr. Ruggiero. The patient unlikely has underlying chronic pulmonary obstructive disease. The patient has never smoked. We will continue to target euvolemia, euglycemia, normothermia and oxygen saturation more than 90%. We will continue with deep venous thrombosis/gastrointestinal prophylaxis. ccm time 40 min Jag Martins MD cc: MD Yuko (Delete if not dictated.) [email or web address]
[2017-09-28 12:55] LABS: HEPATITIS B CORE AB NEGATIVE (NEGATIVE)
[2017-09-28 13:06] LABS: HEPATITIS C ANTIBODY NEGATIVE (NEGATIVE)
[2017-09-28] MEDS: Meropenem IV 1 gm in NS 50 ML IVPB SCH ×2 (15:57→22:12)
--- NOTE | 2017-09-28 16:16 | CON ---
DATE: 09/28/2017 PULMONARY CONSULTATION REASON FOR CONSULTATION: Pulmonary hypertension. REFERRING PHYSICIAN: Jw Ruggiero MD. I did discuss the history with the patient and daughter at length. I have also reviewed the chart at length. HISTORY OF PRESENT ILLNESS: The patient is an 82-year-old female, with past medical history significant for chronic cardiac arrhythmias (on Coumadin), status post ICD placement, congestive heart failure, coronary artery disease, status post recent myocardial infarction, recent aspiration pneumonia, status post cardiopulmonary resuscitation in the recent past, recent episode of acute bronchitis, who presented to [facility] - originally on 09/26/2017 - after having had multiple syncopal episodes at home. The patient's daughter did call 911. The patient was thus transported to [facility] In the emergency room, the patient was noted to be hypotensive. She was thus admitted for additional evaluation. Again, I did discuss the case with the patient and daughter at length. The patient is not short of breath at rest. She does have some mild occasional dyspnea on exertion. There is no history of cough or sputum production. There is no history of chest pain, coughing up of blood or chest pain - made worse with deep respirations. There is no history of temperatures, chills or infectious exposure. There is no history of night sweats, weight loss or appetite change prior to the above events. No history of leg or calf pains. No history of diaphoresis. No history of recent travel or trauma. REVIEW OF SYSTEMS: The patient did have some abdominal pain at home. No acute urinary symptoms. No new musculoskeletal complaints. Rest of the review of systems is negative. ALLERGIES: NO KNOWN ALLERGIES. SOCIAL HISTORY: Negative for tobacco. Negative for alcohol. FAMILY HISTORY: No inheritable diseases. HOME MEDICATIONS: Include Coumadin, Lipitor, metoprolol, Lasix, Zestril. PHYSICAL EXAMINATION: SUBJECTIVE: The patient is out of bed, sitting in the chair. She appears comfortable and is not short of breath at rest. VITAL SIGNS: Temperature is 98.2. Pulse is 70, respirations 20, blood pressure 106/57. Oxygen saturation on nasal cannula is 98%. HEENT: Normocephalic, atraumatic. No JVD. CARDIOVASCULAR: Systolic ejection murmur at the lower left sternal border. No S3 gallop. LUNGS: Minimal crackles at the bases. Otherwise clear. EXTREMITIES: Mild edema. No cyanosis. No clubbing. Calves are nontender to palpation. GI: Abdomen is soft, nontender and nondistended. Bowel sounds are positive. SKIN: No acute rash. NEUROLOGIC: Limited at the present time. PERTINENT LABORATORY DATA: Chest x-ray was done on 09/26/2017 and reviewed. There is minimal linear plate-like atelectasis noted at the right base. Otherwise, there are no acute changes. Abdominal and pelvic CAT scan was also done. On this CAT scan, there are very small bilateral pleural effusions noted. There were also minimal atelectatic changes seen at the bases. There is no lymphadenopathy. CBC: White count 10.7, hemoglobin 11.6, hematocrit 36.5, platelets of 107,000. Initial white count - 20,300. Complete metabolic profile: Carbon dioxide 34, BUN 22, glucose 166, phosphorus 2.3, AST 40, protein 5.4, albumin 2.8. Rest of the metabolic profile is within normal limits. Peak troponin 0.47. Initial B-type natriuretic peptide - 13,600. IMPRESSION: 1. Syncope. 2. Hypotension - improved. 3. Leukocytosis - resolved. 4. Moderate pulmonary hypertension. 5. Small bilateral pleural effusions. 6. Coronary artery disease, positive troponin. 7. Chronic cardiac arrhythmias. 8. Mild anemia. PLAN: Again, I did discuss the case with the daughter and the patient at length. I have also discussed the case with Dr. Martins (ICU) at length. I have also reviewed the chart at length. The patient presented [facility] - on 09/26/2017 - after several syncopal episodes at home. In addition, as above, the patient did present with hypotension to the emergency room. She was thus admitted for additional evaluation. I did review the chest x-ray as above. The chest x-ray reveals only minimal atelectasis noted at the right base. The chest x-ray is actually significantly improved from the previous admissions. I have also reviewed the CAT scan of the abdomen and pelvis. Very small bilateral pleural effusions are noted. In addition, there is also minimal atelectasis noted at the bases. I will start the patient on incentive spirometry. The patient did have an echocardiogram on 09/13/2017. This echocardiogram revealed moderate pulmonary hypertension (right ventricular systolic pressure - 63 mmHg). The patient also had a recent cardiac catheterization done at [facility]. The results are not available at the present time. I will certainly look to see if a pulmonary artery pressure was measured. At this point in time, I will hold off on starting medication for her pulmonary hypertension - given the history of repeated syncope as well as borderline hypotension. Certainly, her pulmonary hypertension may need to be treated in the future. Again, I did discuss the case with Dr. Martins - who grease with the current pulmonary approach. I would continue with the antibiotic coverage as per Infectious Disease. Input by Dr. Mcgarry is noted. The leukocytosis has resolved. I would continue with the GI evaluation. Her abdominal pain is also resolved. Cardiology input is also noted. The clinical status of the patient appears significantly improved - compared to the initial presentation. However, again, her overall status/prognosis does remain guarded. I will continue to follow the patient closely with you. Thank you very much for this pulmonary consultation. Vicente Nobles MD
[2017-09-29] MEDS: Meropenem IV 1 gm in NS 50 ML IVPB SCH (06:32)
--- NOTE | 2017-09-29 06:50 | CON ---
DATE: HISTORY OF PRESENT ILLNESS: This is an 82-year-old female who was recently discharged from the hospital with a history of atrial fibrillations, sick sinus syndrome, status post AICD pacemaker placed in 08/2017 and also chronic lung disease, came here to the hospital, readmitted because she had a syncopal episode at home. Called to evaluate the patient. PAST MEDICAL HISTORY: Arthritis, chronic COPD, obesity and osteoporosis. PAST SURGICAL HISTORY: AICD, hysterectomy, cholecystectomy. ALLERGIES: HAS NO KNOWN DRUG ALLERGY. PHYSICAL EXAMINATION: HEENT: Normocephalic, atraumatic. NECK: Supple. NEUROLOGIC: Alert, awake, oriented x3. No aphasia. Cranial nerves II through XII were tested. Pupils reactive. EOM intact. Visual field full. No facial asymmetry. Tongue midline. Motor: Moves all the extremities spontaneously. Deep tendon reflexes 1+. Both plantars are downgoing. Sensory appears intact. Cerebellar and gait, deferred. IMPRESSION: An 82-year-old female with past medical history of atrial fibrillation, status post defibrillator and chronic obstructive pulmonary disease, came to the hospital, was recently discharged from the hospital, came with syncopal episode. CAT scan of the head done, which shows falx meningioma and calcified and no other stroke or bleed . PLAN: Continue present management. We will follow up. Franklin Londono MD
[2017-09-29 07:13] LABS: HEMOGLOBIN 11.3 g/dL (12.0-16.0); MEAN CELL VOLUME 88.9 fl (80.0-105.0); MEAN CORPUSCULAR HEMOGLOBIN 28.5 pg (25.0-35.0); MEAN PLATELET VOLUME 12.6 fl (7.0-11.0); RBC 3.97 10^6/uL (3.5-6.1); RED CELL DISTRIBUTION WIDTH 14.5 % (11.5-14.5); WHITE BLOOD COUNT 10.2 10^3/ul (4.5-11.0)
[2017-09-29 07:27] LABS: BLOOD UREA NITROGEN 20 mg/dL (7-21); CALCIUM 8.8 mg/dL (8.4-10.5); GFR AFRICAN-AMERICAN > 60; GFR NON-AFRICAN AMERICAN > 60
[2017-09-29 07:33] LABS: INR 1.64 (0.93-1.08)
--- NOTE | 2017-09-29 07:34 | CP.PCM.PN ---
Subjective - Date & Time of Evaluation Date of Evaluation: 09/29/17 Time of Evaluation: 07:00 - Subjective Subjective: Stable on 2R now. She was moved at 11 PM last night. Her daughter and the patient are upset about the move. No CP or SOB. No syncope or LOC. Her daughter is at the bedside. I discussed the results of tests to date with her. V/S noted. V. Paced. BP's better PE: Lungs: clear Cor.: S1S2 Abd.: soft Ext.: no edema Neuro.: alert I/O = 900/130 Labs noted: H/H 11.3/35.3, PL Ct. = 116,000. BMP, INR pending today BC X 2 NG 48 hrs. CXR noted: NAD ECG: V. Paced CT Head: noted Bleeding scan noted. No bleeding detected Objective - Vital Signs/Intake and Output Vital Signs (last 24 hours): Temp Pulse Resp BP Pulse Ox 98.4 F 74 29 H 115/65 92 L 09/28/17 21:00 09/29/17 05:09 09/28/17 23:00 09/28/17 23:00 09/28/17 23:00 Intake and Output: 09/29/17 09/29/17 06:59 18:59 Intake Total 900 Output Total 1300 Balance -400 - Medications Medications: Current Medications Aspirin (Aspirin Chewable) 81 mg PO DAILY [facility] Last Admin: 09/27/17 11:00 Dose: Not Given Atorvastatin Calcium (Lipitor) 10 mg PO HS [facility] Last Admin: 09/28/17 22:15 Dose: 10 mg Famotidine (Pepcid) 40 mg PO HS [facility] Last Admin: 09/28/17 22:17 Dose: 40 mg Furosemide (Lasix) 40 mg PO DAILY [facility] Hydrocortisone (Anusol-Hc) 25 mg RC BID [facility] Last Admin: 09/28/17 17:33 Dose: 25 mg Meropenem (Merrem Iv 1 Gm Premix) 50 mls @ 100 mls/hr IVPB Q8 [facility] PRN Reason: Protocol Last Admin: 09/29/17 06:32 Dose: 100 mls/hr Magnesium Oxide (Mag-Ox) 400 mg PO BID [facility] Last Admin: 09/28/17 17:33 Dose: 400 mg Potassium Chloride (K-Dur 20 Meq Er Tab) 20 meq PO BID [facility] Warfarin Sodium (Coumadin) 2 mg PO 1800 [facility] PRN Reason: Protocol Last Admin: 09/28/17 17:40 Dose: Not Given - Labs Labs: 09/29/17 06:00 09/28/17 06:20 PT 23.4 SECONDS (9.4-12.5) H 09/28/17 06:20 INR 2.01 (0.93-1.08) H 09/28/17 06:20 APTT 37.0 Seconds (25.1-36.5) H 09/28/17 06:20 Assessment and Plan - Assessment and Plan (Free Text) Assessment: Syncope at home Hypotension R/O infection/Sepsis Hypokalemia, hypomagnesemia CHF, diastolic Recent bronchitis/pneumonia A. Flutter with slow VR/VT episode.ICD implant with pocket hematoma, improving. Nl ICD fx and no arhythmia detected on interrogation 09/27/17 Brief CPR with rib fx. HLD Osteoporosis Surgeries: GB, Hysterectomy, Hernia Plan: OOB as lon. Check cultures AB as per ID Resume PO Pasix/KCL Hold lisinopril, metoprolol for now Warfarin by daily INRs.: 2 mg. today. As per ID, Pulmonary, GI, Neuro., and Dr. Ruggiero Will follow.
[2017-09-29] MEDS: Vancomycin 25 MG/ML PO SCH ×4 (10:52→21:32)
[2017-09-29] MEDS: Magnesium Oxide 400 mg Tab UD PO SCH ×2 (10:52→18:08)
[2017-09-29] MEDS: Potassium Chloride 20 mEq ER Tab PO SCH ×2 (10:52→18:08)
--- NOTE | 2017-09-29 11:06 | PN ---
DATE: 09/29/2017 SUBJECTIVE: The patient has no complaints of any chest pain. No shortness of breath. No headache. She says she feels weak and tired low energy. PHYSICAL EXAMINATION: VITAL SIGNS: Temperature is 98.4, pulse is 74, blood pressure 115/65, respirations 20. GENERAL: The patient is lying in bed, flat, comfortable. HEENT: No oral lesion. Anicteric sclerae. Moist mucosa. NECK: No JVD, adenopathy, or thyromegaly. CARDIOVASCULAR: S1 and S2, regular. No murmurs, rubs, or gallops. LUNGS: Clear to auscultation bilaterally. No wheeze, rales, or rhonchi. ABDOMEN: Bowel sounds are positive. Soft, nontender and nondistended. EXTREMITIES: No cyanosis, clubbing or edema. LABORATORY DATA: White count is 10.7, hemoglobin 11.6 and creatinine is 0.7. ASSESSMENT: 1. Sepsis. 2. Hypotension, resolved. 3. Congestive heart failure secondary to diastolic dysfunction. 4. Pulmonary hypertension. 5. Tricuspid regurgitation, moderate. 6. Hypokalemia, improved. 7. Hypomagnesemia, improved. 8. Atrial fibrillation, on anticoagulation. 9. Osteoporosis. 10. Abdominal pain, resolved. 11. Elevated troponin. 12. 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 PLAN: The patient is currently comfortable. She is on the medical floor. I did speak to the patient's daughter at the bedside to give her an update. Dr. Nobles's note was reviewed who is the infantry senior sergeant seeing the patient. The patient's cultures have been negative, blood and urine. She did have a C. diff toxin that was negative with an antigen that was positive. She does not have any significant diarrhea. I do not believe that she has C. diff, although she did have a high white count when she was initially admitted to the hospital and that has improved. She is currently on meropenem. Her magnesium was low and she is on magnesium oxide for replacement. Her aspirin is on hold because of her bleeding. She has been placed on her Coumadin. Her INR yesterday was 2, therapeutic. The patient is on Lipitor for dyslipidemia. She is on a heart-healthy diet. She will need physical therapy. I asked Dr. Londono to evaluate the patient for syncope. The patient has not had any events. Overall prognosis is guarded. She is a full code. Jw Ruggiero MD
--- NOTE | 2017-09-29 12:08 | CP.PCM.PN ---
Subjective - Date & Time of Evaluation Date of Evaluation: 09/29/17 Time of Evaluation: 10:40 - Subjective Subjective: Patient is feeling better, no abdominal pain, no more rectal bleeding, currently no diarrhea. No fevers. Objective - Vital Signs/Intake and Output Vital Signs (last 24 hours): Temp Pulse Resp BP Pulse Ox 98.4 F 74 29 H 115/65 92 L 09/28/17 21:00 09/29/17 05:09 09/28/17 23:00 09/28/17 23:00 09/28/17 23:00 Intake and Output: 09/29/17 09/29/17 06:59 18:59 Intake Total 900 Output Total 1300 Balance -400 - Medications Medications: Current Medications Aspirin (Aspirin Chewable) 81 mg PO DAILY [facility] Last Admin: 09/27/17 11:00 Dose: Not Given Atorvastatin Calcium (Lipitor) 10 mg PO HS [facility] Last Admin: 09/28/17 22:15 Dose: 10 mg Famotidine (Pepcid) 40 mg PO [facility] Last Admin: 09/28/17 22:17 Dose: 40 mg Furosemide (Lasix) 40 mg PO DAILY [facility] Hydrocortisone (Anusol-Hc) 25 mg RC BID [facility] Last Admin: 09/28/17 17:33 Dose: 25 mg Meropenem (Merrem Iv 1 Gm Premix) 50 mls @ 100 mls/hr IVPB Q8 [facility] PRN Reason: Protocol Last Admin: 09/29/17 06:32 Dose: 100 mls/hr Magnesium Oxide (Mag-Ox) 400 mg PO BID [facility] Last Admin: 09/28/17 17:33 Dose: 400 mg Potassium Chloride (K-Dur 20 Meq Er Tab) 20 meq PO BID [facility] Vancomycin HCl (Vancocin 25 Mg/Ml (Oral Use)) 125 mg PO QID [facility] PRN Reason: Protocol Stop: 10/09/17 10:01 Warfarin Sodium (Coumadin) 2 mg PO 1800 [facility] PRN Reason: Protocol Last Admin: 09/28/17 17:40 Dose: Not Given - Labs Labs: 09/29/17 06:00 09/29/17 06:00 PT 19.0 SECONDS (9.4-12.5) H 09/29/17 06:00 INR 1.64 (0.93-1.08) H 09/29/17 06:00 APTT 37.0 Seconds (25.1-36.5) H 09/28/17 06:20 - Constitutional Appears: Non-toxic, Chronically Ill - Head Exam Head Exam: NORMAL INSPECTION - Respiratory Exam Respiratory Exam: Decreased Breath Sounds - Cardiovascular Exam Cardiovascular Exam: +S1, +S2 - GI/Abdominal Exam GI & Abdominal Exam: Soft. absent: Tenderness Assessment and Plan - Assessment and Plan (Free Text) Plan: Assessment consider C. diff. associated diarrhea R/O ischemic colitis but no evidence seen on CT A/P history of SIRS due to acute on chronic CHF with no evidence of sepsis osteoporosis sick sinus syndrome S/P AICD and pacemaker placement 2017 S/P hysterectomy S/P cholecystectomy obesity with BMI 33 atrial fibrillation on anticoagulation Plan patient has been on Merrem for 3 days - cultures have been negative - WBC count has normalized as well - will d/c Merrem and observe will continue PO Vancomycin to complete 10 days of therapy will monitor clinically and monitor WBC count
--- NOTE | 2017-09-29 14:54 | CP.PCM.PN ---
Subjective - Date & Time of Evaluation Date of Evaluation: 09/29/17 Time of Evaluation: 08:45 - Subjective Subjective: Seen and examined at the bedside earlier today, chart review. No acute overnight events recorded. Patient denies nausea, vomiting, or abdominal pain. Last bowel movement was yesterday, no reports of overt GI bleed. Tolerating oral intake. Objective - Vital Signs/Intake and Output Vital Signs (last 24 hours): Temp Pulse Resp BP Pulse Ox 98.1 F 72 18 120/68 94 L 09/29/17 12:00 09/29/17 14:00 09/29/17 12:00 09/29/17 12:00 09/29/17 09:00 Intake and Output: 09/29/17 09/29/17 06:59 18:59 Intake Total 900 Output Total 1300 Balance -400 - Medications Medications: Current Medications Aspirin (Aspirin Chewable) 81 mg PO DAILY [facility] Last Admin: 09/27/17 11:00 Dose: Not Given Atorvastatin Calcium (Lipitor) 10 mg PO HS [facility] Last Admin: 09/28/17 22:15 Dose: 10 mg Famotidine (Pepcid) 40 mg PO HS [facility] Last Admin: 09/28/17 22:17 Dose: 40 mg Furosemide (Lasix) 40 mg PO DAILY [facility] Last Admin: 09/29/17 10:52 Dose: 40 mg Hydrocortisone (Anusol-Hc) 25 mg RC BID [facility] Last Admin: 09/29/17 10:52 Dose: 25 mg Magnesium Oxide (Mag-Ox) 400 mg PO BID [facility] Last Admin: 09/29/17 10:52 Dose: 400 mg Potassium Chloride (K-Dur 20 Meq Er Tab) 20 meq PO BID [facility] Last Admin: 09/29/17 10:52 Dose: 20 meq Vancomycin HCl (Vancocin 25 Mg/Ml (Oral Use)) 125 mg PO QID [facility] PRN Reason: Protocol Stop: 10/09/17 10:01 Last Admin: 09/29/17 14:22 Dose: 125 mg Warfarin Sodium (Coumadin) 3 mg PO 1800 [facility] PRN Reason: Protocol - Labs Labs: 09/29/17 06:00 09/29/17 06:00 PT 19.0 SECONDS (9.4-12.5) H 09/29/17 06:00 INR 1.64 (0.93-1.08) H 09/29/17 06:00 APTT 37.0 Seconds (25.1-36.5) H 09/28/17 06:20 - Constitutional Appears: No Acute Distress - Head Exam Head Exam: NORMOCEPHALIC - Eye Exam Eye Exam: Normal appearance. absent: Scleral icterus - ENT Exam ENT Exam: Mucous Membranes Moist - Neck Exam Neck Exam: Normal Inspection - Respiratory Exam Respiratory Exam: NORMAL BREATHING PATTERN. absent: Respiratory Distress - Cardiovascular Exam Cardiovascular Exam: +S1, +S2 - GI/Abdominal Exam GI & Abdominal Exam: Soft, Normal Bowel Sounds. absent: Guarding, Tenderness, Rebound - Extremities Exam Extremities Exam: absent: Calf Tenderness, Pedal Edema - Neurological Exam Neurological Exam: Alert, Awake, Oriented x3 - Skin Skin Exam: Dry, Warm Assessment and Plan - Assessment and Plan (Free Text) Assessment: Assessment: Syncopal episodes Status post recent pacemaker Exacerbation of CHF Elevated iron studies, rule out hemochromatosis GI bleed, positive guaiac but also had blood per rectum, ? Hemorrhoids, ? Ischemic colitis, ct scan no inflammation but limited study no contrast, no further episodes/ hgb stable. Atrial fibrillation on Coumadin History of colon polyp Diverticulosis Mildly elevated liver enzymes, may be secondary to hepatic congestion History of cholecystectomy Elevated troponin Leukocytosis Plan: hemochromatosis panel pending Monitor H&H Continue GI prophylaxis on Anusol Monitor LFTs On IV antibiotics to restart Coumadin hematology FU Case discussed with Dr. Evans covering Dr. Craven.
--- NOTE | 2017-09-30 00:31 | CP.PCM.CON ---
History of Present Illness - History of Present Illness History of Present Illness: Pt. is an 82 year old female recently discharged from hospital She presented to ED with syncope at a beauty salon. She also reports bleeding per rectum that she attributes to hemorroids. She occasionally bleeds from hemorrhoids. No bleeding now. Bleeding scan was negative. She was found to have high iron and ferritin raising a suspicion of hemchromatosis. She is of [place] descent where incidence is high. She also has OA. No chest pain. Had a large bowel movement recent, no blood . Review of Systems - Constitutional Constitutional: As Per HPI - EENT Eyes: As Per HPI Ears: absent: As Per HPI, Decreased Hearing, Ear Discharge, Ear Pain, Tinnitus, Abnormal Hearing, Disequilibrium, Dizziness, Other - Breasts Breasts: absent: As Per HPI, Change in Shape, Mass, Pain, Nipple Discharge, Nipple Inversion, Skin Changes, Swelling, Other - Cardiovascular Cardiovascular: As Per HPI - Respiratory Respiratory: absent: As Per HPI, Cough, Dyspnea, Hemoptysis, Dyspnea on Exertion , Wheezing, Snoring, Stridor, Pain on Inspiration, Chest Congestion, Excessive Mucous Production, Change in Mucous Color, Pain with Coughing, Other - Gastrointestinal Gastrointestinal: As Per HPI - Genitourinary Genitourinary: absent: As Per HPI, Change in Urinary Stream, Difficulty Urinating, Dysuria, Flank Pain, Hematuria, Pyuria, Nocturia, Urinary Incontinence, Urinary Frequency, Urinary Hesitance, Urinary Urgency, Voiding Freq/Small Amts, Freq UTI, Hx Renal/Bladder Calculi, Hx /Renal Surgery, Bladder Distension, Other - Reproductive: Female Reproductive:Female: absent: As Per HPI, Amenorrhea, Amenorrhea/ Control, Currently Menstual, Cycle <21 Days, Cycle >35 Days, Cycle Variable, Menses 1-7 Days, Menses >/= 8 Days, Menses Variable, Cycle > 4 Weeks Between, No Menses for 6 Months, Heavy Menses, Light Menses, Normal Menses, Spotting Between Cycles , S/P Hysterectomy, Menopausal, Post Menopausal, Premenarche, Abnormal Vaginal Bleeding, Dysmenorrhea, Dyspareunia, Genital Lesions, Genital Pruritis, Pelvic Pain, Prolapse Symptoms, Sexual Dysfunction, Vaginal Discharge, Vaginal Dryness , Vaginal Odor, Vaginal Pruritis, Other - Menstruation Menstruation: absent: As Per HPI, Amenorrhea, Amenorrhea/ Control, Currently Menstual, Cycle <21 Days, Cycle >35 Days, Cycle Variable, Menses 1-7 Days, Menses >/= 8 Days, Menses Variable, Cycle > 4 Weeks Between, No Menses for 6 Months, Heavy Menses, Light Menses, Normal Menses, Spotting Between Cycles , S/P Hysterectomy, Menopausal, Post Menopausal, Premenarche, Abnormal Vaginal Bleeding, Dysmenorrhea, Other - Musculoskeletal Musculoskeletal: As Per HPI - Integumentary Integumentary: absent: As Per HPI, Acne, Alopecia, Bleeding Lesions, Change in Hair, Change in Nails, Change in Pigmentation, Changing Lesions, Dry Skin, Erythema, Furuncle, Hirsutism, Lesions, New Lesions, Non-Healing Lesions, Photosensitivity, Pruritus, Rash, Skin Pain, Skin Ulcer, Sores, Striae, Swelling , Unusual Bruising, Wounds, Jaundice, Other - Neurological Neurological: As Per HPI - Endocrine Endocrine: absent: As Per HPI, Change in Body Appearance, Change in Libido, Cold Intolorance, Deepening of Voice, Excessive Sweating, Fatigue, Flushing, Heat Intolorance, Increase in Ring/Shoe/Hat Size, Palpitations, Polydipsia, Polyphagia, Polyuria, Other - Hematologic/Lymphatic Hematologic: As Per HPI Past Patient History - Infectious Disease Hx of Infectious Diseases: None - Tetanus Immunizations Tetanus Immunization: Unknown - Past Medical History & Family History Past Medical History?: Yes - Past Social History Smoking Status: Former Smoker - CARDIAC Hx Cardiac Disorders: Yes Hx Congestive Heart Failure: Yes - PULMONARY Hx Chronic Obstructive Pulmonary Disease (COPD): Yes - NEUROLOGICAL Hx Neurological Disorder: No - HEENT Hx HEENT Problems: Yes Other/Comment: glasses - RENAL Hx Chronic Kidney Disease: No - ENDOCRINE/METABOLIC Hx Endocrine Disorders: No - HEMATOLOGICAL/ONCOLOGICAL Hx Blood Disorders: No - INTEGUMENTARY Hx Dermatological Problems: No - MUSCULOSKELETAL/RHEUMATOLOGICAL Hx Arthritis: Yes Hx Falls: Yes - GASTROINTESTINAL Hx Gastrointestinal Disorders: No - GENITOURINARY/GYNECOLOGICAL Hx Genitourinary Disorders: No - PSYCHIATRIC Hx Psychophysiologic Disorder: No - SURGICAL HISTORY Hx Cholecystectomy: Yes Other/Comment: HEMORRHOIDECTOMY,HYSTERECTOMY - ANESTHESIA Hx Anesthesia: Yes Hx Anesthesia Reactions: No Hx Malignant Hyperthermia: No Meds Allergies/Adverse Reactions: Allergies Allergy/AdvReac Type Severity Reaction Status Date / Time No Known Allergies Allergy Verified 09/26/17 12:12 - Medications Medications: Current Medications Aspirin (Aspirin Chewable) 81 mg PO DAILY [facility] Last Admin: 09/27/17 11:00 Dose: Not Given Atorvastatin Calcium (Lipitor) 10 mg PO HS [facility] Last Admin: 09/29/17 21:32 Dose: 10 mg Famotidine (Pepcid) 40 mg PO HS [facility] Last Admin: 09/29/17 21:32 Dose: 40 mg Furosemide (Lasix) 40 mg PO DAILY [facility] Last Admin: 09/29/17 10:52 Dose: 40 mg Hydrocortisone (Anusol-Hc) 25 mg RC BID [facility] Last Admin: 09/29/17 18:22 Dose: Not Given Magnesium Oxide (Mag-Ox) 400 mg PO BID [facility] Last Admin: 09/29/17 18:08 Dose: 400 mg Potassium Chloride (K-Dur 20 Meq Er Tab) 20 meq PO BID [facility] Last Admin: 09/29/17 18:08 Dose: 20 meq Vancomycin HCl (Vancocin 25 Mg/Ml (Oral Use)) 125 mg PO QID [facility] PRN Reason: Protocol Stop: 10/09/17 10:01 Last Admin: 09/29/17 21:32 Dose: 125 mg Warfarin Sodium (Coumadin) 3 mg PO 1800 [facility] PRN Reason: Protocol Last Admin: 09/29/17 18:07 Dose: 3 mg Physical Exam - Constitutional Appears: Chronically Ill - Head Exam Head Exam: ATRAUMATIC, NORMAL INSPECTION, NORMOCEPHALIC - Eye Exam Eye Exam: Normal appearance - Neck Exam Neck exam: Positive for: Normal Inspection - Respiratory Exam Respiratory Exam: Clear to Auscultation Bilateral, NORMAL BREATHING PATTERN - Cardiovascular Exam Cardiovascular Exam: REGULAR RHYTHM, +S1, +S2 - GI/Abdominal Exam GI & Abdominal Exam: Normal Bowel Sounds, Soft - Extremities Exam Extremities exam: Positive for: normal inspection - Neurological Exam Neurological exam: Alert, CN II-XII Intact, Oriented x3 - Skin Skin Exam: Normal Color, Warm Results - Vital Signs Recent Vital Signs: Last Vital Signs Temp 97.8 F 09/30/17 00:01 Pulse 70 09/30/17 00:01 Resp 20 09/30/17 00:01 BP 113/60 09/30/17 00:01 Pulse Ox 98 09/30/17 00:01 - Labs Result Diagrams: 09/29/17 06:00 09/29/17 06:00 Labs: Laboratory Results - last 24 hr 09/29/17 09/29/17 09/29/17 06:00 06:00 06:00 WBC 10.2 RBC 3.97 Hgb 11.3 L Hct 35.3 L MCV 88.9 MCH 28.5 MCHC 32.0 RDW 14.5 Plt Count 116 L MPV 12.6 H PT 19.0 H INR 1.64 H Sodium 139 Potassium 4.9 Chloride 97 L Carbon Dioxide 37 H Anion Gap 10 BUN 20 Creatinine 0.7 Est GFR ( Amer) > 60 Est GFR (Non-Af Amer) > 60 Random Glucose 98 Calcium 8.8 Assessment & Plan - Assessment and Plan (Free Text) Assessment: 1. Syncope : Cardiology, neuro office 365 consultant evaluating. 2. iron overload: possible hemchromatosis. Panel to be sent tomorrow with am labs. 3. GI bleed. likely due to hemorroids. GI consult requested. will send CEA. Bleeding scan negative. 4. CHF : stable. Thank you Dr. Ruggiero for allowing us to participate in her care. - Date & Time Date: 09/27/17 Time: 18:00
[2017-09-30 07:32] LABS: INR 1.4 (0.93-1.08); PROTHROMBIN TIME 16.2 SECONDS (9.4-12.5)
[2017-09-30 07:41] LABS: BLOOD UREA NITROGEN 23 mg/dL (7-21); CALCIUM 8.7 mg/dL (8.4-10.5); GFR AFRICAN-AMERICAN > 60; GFR NON-AFRICAN AMERICAN > 60
--- NOTE | 2017-09-30 08:03 | CP.PCM.PN ---
Subjective - Date & Time of Evaluation Date of Evaluation: 09/30/17 Time of Evaluation: 07:00 - Subjective Subjective: Stable on 2R. She feels much better today. No CP or SOB. No syncope or LOC. + back pains. No diarrhea. Her daughter is at the bedside. I discussed the results of tests to date with her. V/S noted. V. Paced. BP's better PE: Lungs: clear Cor.: S1S2 Abd.: soft Ext.: no edema Neuro.: alert Labs noted: INR 1.4, K+= 3.5 BC X 2 NG at 3 days CXR noted: NAD ECG: V. Paced CT Head: noted Bleeding scan noted. No bleeding detected Objective - Vital Signs/Intake and Output Vital Signs (last 24 hours): Temp Pulse Resp BP Pulse Ox 98.0 F 72 18 125/70 97 09/30/17 05:50 09/30/17 05:51 09/30/17 05:50 09/30/17 05:50 09/30/17 05:50 - Medications Medications: Current Medications Aspirin (Aspirin Chewable) 81 mg PO DAILY [facility] Last Admin: 09/27/17 11:00 Dose: Not Given Atorvastatin Calcium (Lipitor) 10 mg PO HS [facility] Last Admin: 09/29/17 21:32 Dose: 10 mg Famotidine (Pepcid) 40 mg PO HS [facility] Last Admin: 09/29/17 21:32 Dose: 40 mg Furosemide (Lasix) 40 mg PO DAILY [facility] Last Admin: 09/29/17 10:52 Dose: 40 mg Hydrocortisone (Anusol-Hc) 25 mg RC BID [facility] Last Admin: 09/29/17 18:22 Dose: Not Given Magnesium Oxide (Mag-Ox) 400 mg PO BID [facility] Last Admin: 09/29/17 18:08 Dose: 400 mg Potassium Chloride (K-Dur 20 Meq Er Tab) 20 meq PO TID [facility] Vancomycin HCl (Vancocin 25 Mg/Ml (Oral Use)) 125 mg PO QID [facility] PRN Reason: Protocol Stop: 10/09/17 10:01 Last Admin: 09/29/17 21:32 Dose: 125 mg Warfarin Sodium (Coumadin) 5 mg PO ONCE ONE PRN Reason: Protocol Stop: 09/30/17 10:01 - Labs Labs: 09/29/17 06:00 09/30/17 06:30 PT 16.2 SECONDS (9.4-12.5) H 09/30/17 06:30 INR 1.40 (0.93-1.08) H 09/30/17 06:30 APTT 37.0 Seconds (25.1-36.5) H 09/28/17 06:20 Assessment and Plan - Assessment and Plan (Free Text) Assessment: Syncope at home Hypotension R/O infection/Sepsis Hypokalemia, hypomagnesemia CHF, diastolic Recent bronchitis/pneumonia A. Flutter with slow VR/VT episode.ICD implant with pocket hematoma, improving. Nl ICD fx and no arhythmia detected on interrogation 09/27/17 Brief CPR with rib fx. HLD Osteoporosis Surgeries: GB, Hysterectomy, Hernia Plan: OOB as lon./PT/Ambulate as lon. AB as per ID Increase PO KCL Hold lisinopril, metoprolol for now Warfarin by daily INRs.: 5 mg. today. As per ID, Pulmonary, GI, Neuro., and Dr. Ruggiero Will follow.
[2017-09-30] MEDS ORDERED: Home Med 1 UNIT TOP SCH ×2 (10:00)
[2017-09-30] MEDS: Potassium Chloride 20 mEq ER Tab PO SCH ×3 (10:22→17:57)
[2017-09-30] MEDS: Magnesium Oxide 400 mg Tab UD PO SCH ×2 (10:22→17:56)
[2017-09-30] MEDS: Vancomycin 25 MG/ML PO SCH ×4 (11:11→22:01)
--- NOTE | 2017-09-30 13:07 | CP.PCM.PN ---
Subjective - Date & Time of Evaluation Date of Evaluation: 09/30/17 Time of Evaluation: 12:10 - Subjective Subjective: Comfortable in bed, no fevers, not in distress, no diarrhea currently. Objective - Vital Signs/Intake and Output Vital Signs (last 24 hours): Temp Pulse Resp BP Pulse Ox 98.0 F 72 18 125/70 97 09/30/17 05:50 09/30/17 05:51 09/30/17 05:50 09/30/17 05:50 09/30/17 05:50 - Medications Medications: Current Medications Acetaminophen (Tylenol 325mg Tab) 650 mg PO Q4H PRN PRN Reason: Pain, Mild (1-3) Aspirin (Aspirin Chewable) 81 mg PO DAILY [facility] Last Admin: 09/27/17 11:00 Dose: Not Given Atorvastatin Calcium (Lipitor) 10 mg PO HS [facility] Last Admin: 09/29/17 21:32 Dose: 10 mg Famotidine (Pepcid) 40 mg PO HS [facility] Last Admin: 09/29/17 21:32 Dose: 40 mg Furosemide (Lasix) 40 mg PO DAILY [facility] Last Admin: 09/29/17 10:52 Dose: 40 mg Hydrocortisone (Anusol-Hc) 25 mg RC BID [facility] Last Admin: 09/29/17 18:22 Dose: Not Given Magnesium Oxide (Mag-Ox) 400 mg PO BID [facility] Last Admin: 09/29/17 18:08 Dose: 400 mg Potassium Chloride (K-Dur 20 Meq Er Tab) 20 meq PO TID [facility] Vancomycin HCl (Vancocin 25 Mg/Ml (Oral Use)) 125 mg PO QID [facility] PRN Reason: Protocol Stop: 10/09/17 10:01 Last Admin: 09/29/17 21:32 Dose: 125 mg - Labs Labs: 09/29/17 06:00 09/30/17 06:30 PT 16.2 SECONDS (9.4-12.5) H 09/30/17 06:30 INR 1.40 (0.93-1.08) H 09/30/17 06:30 APTT 37.0 Seconds (25.1-36.5) H 09/28/17 06:20 - Constitutional Appears: Non-toxic, Chronically Ill - Head Exam Head Exam: NORMAL INSPECTION - Respiratory Exam Respiratory Exam: Decreased Breath Sounds - Cardiovascular Exam Cardiovascular Exam: +S1, +S2 - GI/Abdominal Exam GI & Abdominal Exam: Soft. absent: Tenderness Assessment and Plan - Assessment and Plan (Free Text) Plan: Assessment consider C. diff. associated diarrhea unlikely ischemic colitis since no evidence seen on CT A/P history of SIRS due to acute on chronic CHF with no evidence of sepsis osteoporosis sick sinus syndrome S/P AICD and pacemaker placement 2017 S/P hysterectomy S/P cholecystectomy obesity with BMI 33 atrial fibrillation on anticoagulation Plan S/P 3 days of Merrem for 3 days - cultures have been negative - WBC count has normalized as well will continue PO Vancomycin to complete 10 days of therapy (day 3 today) will monitor clinically and monitor WBC count
--- NOTE | 2017-09-30 13:36 | PN ---
DATE: 09/30/2017 SUBJECTIVE: The patient has no complaints of any chest pain. She says she feels better than yesterday. She still having difficulty in sleeping. PHYSICAL EXAMINATION: VITAL SIGNS: Temperature is 98, pulse 72, blood pressure 125/70, respirations 18. GENERAL: The patient is lying in bed, flat, comfortable. HEENT: No oral lesion. Anicteric sclerae. Moist mucosa. NECK: No JVD, adenopathy, or thyromegaly. CARDIOVASCULAR: S1 and S2, regular. No murmurs, rubs, or gallops. LUNGS: Clear to auscultation bilaterally. No wheeze, rales, or rhonchi. ABDOMEN: Bowel sounds are positive, soft, nontender and nondistended. EXTREMITIES: No cyanosis, clubbing or edema. LABS: White count of 10.3, hemoglobin 11.3. Creatinine is 0.8. ASSESSMENT: 1. Sepsis, improved. 2. Hypotension, resolved. 3. Congestive heart failure secondary to diastolic dysfunction. 4. Pulmonary hypertension. 5. Tricuspid regurgitation. 6. Hypokalemia, improved. 7. Hypomagnesemia, improved. 8. Atrial fibrillation, on anticoagulation. 9. Osteoporosis. 10. Abdominal pain, improved. 11. Elevated troponin. 12. Palpable hemochromatosis. PLAN: The patient is currently feeling well. Her labs have been reviewed. The patient's blood pressure medication continue to be on hold. She has been followed by multiple [facility]. She has an ICD that was interrogated. The patient is currently on hydrocortisone for her hemorrhage. The patient is on Lasix daily. She is on Lipitor for dyslipidemia. She is on vancomycin for antibiotics. The patient has a VQ scan that is pending. She is being seen by Physical Therapy. I did have a long discussion with the patient's daughter yesterday and the patient's other daughter today regarding the patient's overall condition, her diagnosis, her prognosis. I did advise them that she has multiple comorbidities and she continues to decline from even the past 6 months, continues to decline, she may have a bad outcome. The patient's symptoms may continue to occur, even though she is on maximum medical management. The patient's pulmonary hypertension is contributing factor. The patient's daughter was also tried and she may get a second opinion from pulmonary hypertension specialty clinic like [facility] in [facility]. The patient's family is aware of the prognosis being guarded given that she continues to have symptoms and has been having frequent hospitalizations. I am not sure if there is anything that can be done to prevent her from being hospitalized. She does follow with her physicians. She is compliant with the medications. She has a good supporting family. The patient continues to get physical therapy. I am concerned that the patient will continue to decline and have these symptoms but at this point I am waiting for her serology to return. The results of Serology, her hepatitis B, hepatitis C has been negative. Jw Ruggiero MD
[2017-10-01 07:35] LABS: INR 1.69 (0.93-1.08); PROTHROMBIN TIME 19.7 SECONDS (9.4-12.5)
[2017-10-01 07:56] LABS: BLOOD UREA NITROGEN 23 mg/dL (7-21); CALCIUM 8.8 mg/dL (8.4-10.5); GFR AFRICAN-AMERICAN > 60; GFR NON-AFRICAN AMERICAN > 60
--- NOTE | 2017-10-01 08:15 | CP.PCM.PN ---
Subjective - Date & Time of Evaluation Date of Evaluation: 10/01/17 Time of Evaluation: 07:00 - Subjective Subjective: Stable on 2R. She feels much better today. No CP or SOB. No syncope or LOC. No diarrhea. Her daughter is at the bedside. V/S noted. V. Paced. BP's better PE: Lungs: clear Cor.: S1S2 Abd.: soft Ext.: no edema Neuro.: alert Labs noted: INR 1.4, K+= 3.5 BC X 2 NG at 3 days CXR noted: NAD ECG: V. Paced CT Head: noted Bleeding scan noted. No bleeding detected Objective - Vital Signs/Intake and Output Vital Signs (last 24 hours): Temp Pulse Resp BP Pulse Ox 97.9 F 70 20 119/70 95 10/01/17 05:55 10/01/17 05:55 10/01/17 05:55 10/01/17 05:55 10/01/17 05:55 - Medications Medications: Current Medications Acetaminophen (Tylenol 325mg Tab) 650 mg PO Q4H PRN PRN Reason: Pain, Mild (1-3) Last Admin: 09/30/17 22:02 Dose: 650 mg Aspirin (Aspirin Chewable) 81 mg PO DAILY [facility] Last Admin: 09/27/17 11:00 Dose: Not Given Atorvastatin Calcium (Lipitor) 10 mg PO HS [facility] Last Admin: 09/30/17 22:01 Dose: 10 mg Famotidine (Pepcid) 40 mg PO HS [facility] Last Admin: 09/30/17 22:01 Dose: 40 mg Furosemide (Lasix) 40 mg PO DAILY [facility] Last Admin: 09/30/17 11:11 Dose: 40 mg Hydrocortisone (Anusol-Hc) 25 mg RC BID [facility] Last Admin: 09/30/17 17:56 Dose: 25 mg Magnesium Oxide (Mag-Ox) 400 mg PO BID [facility] Last Admin: 09/30/17 17:56 Dose: 400 mg Potassium Chloride (K-Dur 20 Meq Er Tab) 20 meq PO TID [facility] Last Admin: 09/30/17 17:57 Dose: 20 meq Vancomycin HCl (Vancocin 25 Mg/Ml (Oral Use)) 125 mg PO QID [facility] PRN Reason: Protocol Stop: 10/09/17 10:01 Last Admin: 09/30/17 22:01 Dose: 125 mg - Labs Labs: 09/29/17 06:00 10/01/17 07:00 PT 19.7 SECONDS (9.4-12.5) H 10/01/17 07:00 INR 1.69 (0.93-1.08) H 10/01/17 07:00 APTT 37.0 Seconds (25.1-36.5) H 09/28/17 06:20 Assessment and Plan - Assessment and Plan (Free Text) Assessment: Syncope at home Hypotension R/O infection/Sepsis Hypokalemia, hypomagnesemia CHF, diastolic Recent bronchitis/pneumonia A. Flutter with slow VR/VT episode.ICD implant with pocket hematoma, improving. Nl ICD fx and no arhythmia detected on interrogation 09/27/17 Brief CPR with rib fx. HLD Osteoporosis Surgeries: GB, Hysterectomy, Hernia Plan: OOB as lon./PT/Ambulate as lon. AB as per ID Increase PO KCL and PO mag. Hold lisinopril, metoprolol for now Warfarin by daily INRs.: 5 mg. today. As per ID, Pulmonary, GI, Neuro., and Dr. Ruggiero Will follow.
[2017-10-01] MEDS ORDERED: Magnesium Sulfate 2 GM in Sodium Chloride 0.9% 100 ML IV ONE (08:41)
--- NOTE | 2017-10-01 09:20 | PN ---
DATE: 09/29/2017 PULMONARY PROGRESS NOTE SUBJECTIVE: The patient feels well, has no respiratory distress. I have reviewed her history. She has a history of dyspnea on exertion with hypoxemia. Her echocardiogram showed moderate pulmonary hypertension with an RVSP of 63. She evidently did have a cardiac catheterization, the results of which are not available at this time. I assume this would concur and confirm the diagnosis of pulmonary hypertension, but the results are not available as yet. PHYSICAL EXAMINATION: GENERAL: The patient is comfortable in a chair, sitting without respiratory distress. VITAL SIGNS: Stable. She is afebrile. Blood pressure 110/60, O2 sat 98%. HEENT: Normocephalic, atraumatic. NECK: No JVD. No lymphadenopathy. No bruit. CARDIOVASCULAR: Regular rhythm. S1, S2 without murmur, gallop or rub. LUNGS: Decreased breath sounds throughout, but clear. ABDOMEN: Soft. Bowel sounds normoactive without mass, guarding, rebound, or organomegaly. EXTREMITIES: Reveal no clubbing, cyanosis, or edema. There is no Homans sign. SKIN: Shows no rash or excoriation. NEUROLOGIC: No focal findings. IMPRESSION: 1. Syncope. 2. Resolved hypotension. 3. Pulmonary hypertension by echocardiogram, awaiting cardiac catheterization data. PLAN: The patient will require the cath data to consider treatment for pulmonary hypertension. She will need a V/Q scan to rule out pulmonary emboli which I will order at this time. Rheumatologic workup to exclude underlying collagen vascular disease. Once the pulmonary hypertension diagnosis is confirmed, she will require vigorous treatment with a pulmonary hypertension medication. This will need to be done as an outpatient. We will look forward to seeing her as required. Thank you for the opportunity to see this patient at this time. We will discuss with the patient and daughter regarding followup and treatment. Donny Salter MD
--- NOTE | 2017-10-01 09:26 | PN ---
DATE: 09/29/2017 Addendum to a progress note performed by Amber Bonilla APN. Covering for Dr. Craven. I personally examined the patient. I agreed with Amber Bonilla' assessment and recommendations. The patient has not had any overt GI bleeding. Apparently, she has a history of heme-positive stools. Recommendations are to continue current treatment. No further GI workup is planned at this time. Her blood count is stable at 11.3. Juan Evans MD [id number]
[2017-10-01] MEDS: Vancomycin 25 MG/ML PO SCH ×4 (09:41→21:46)
[2017-10-01] MEDS: Potassium Chloride 10 mEq ER Tab PO SCH ×3 (09:42→18:16)
[2017-10-01] MEDS: Magnesium Oxide 400 mg Tab UD PO SCH ×3 (09:42→18:16)
[2017-10-01] MEDS ORDERED: Potassium Chloride 20 mEq ER Tab PO SCH (10:00)
--- NOTE | 2017-10-01 10:19 | PN ---
DATE: 10/01/2017 SUBJECTIVE: The patient has no complaints of any chest pain. No shortness of breath. No headaches or dizziness. OBJECTIVE: VITAL SIGNS: Temperature is 97.9, pulse of 70, blood pressure 119/70, respirations 20, O2 saturation 95%. GENERAL: The patient is lying in bed, flat, comfortable. HEENT: No oral lesion. Anicteric sclerae. Moist mucosa. NECK: No JVD, adenopathy, or thyromegaly. CARDIOVASCULAR: S1 and S2, regular. No murmurs, rubs, or gallops. LUNGS: Clear to auscultation bilaterally. No wheeze, rales, or rhonchi. ABDOMEN: Bowel sounds are positive. Soft, nontender and nondistended. EXTREMITIES: No cyanosis, clubbing or edema. ASSESSMENT: 1. Sepsis, resolved. 2. Hypertension, improved. 3. Congestive heart failure secondary to diastolic dysfunction. 4. Pulmonary hypertension. 5. Tricuspid regurgitation. 6. Hypokalemia, improved. 7. Hypomagnesemia, improved. 8. Atrial fibrillation, on anticoagulation. 9. Osteoporosis. 10. Abdominal pain, improved. 11. Elevated troponin. 12. 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 PLAN: The patient is currently on potassium replacement. He is going to be on Lasix daily. The patient is on Lipitor for dyslipidemia. The patient is on magnesium replacement. He is on Pepcid. The patient is on vancomycin for possible C. difficile. The patient has a PT/INR that is going to be pending for this morning. The patient's INR is subtherapeutic at 1.69. The patient has a V/Q scan, that is also pending. The family does not wish to go to subacute rehab or Transitional Care Unit. Jw Ruggiero MD
--- NOTE | 2017-10-01 11:53 | PN ---
DATE: 09/29/2017 PULMONARY PROGRESS NOTE SUBJECTIVE: The patient feels well, who is awake and alert, sitting in bed, no acute distress. We are still awaiting workup regarding pulmonary arterial hypertension. PHYSICAL EXAMINATION: GENERAL: The patient is comfortable in bed with no respiratory distress. VITAL SIGNS: Stable, afebrile. Blood pressure 110/70, O2 sat 98%, respiratory rate 16. HEENT: Normocephalic, atraumatic. NECK: Supple. No JVD. No lymphadenopathy. No bruit. CARDIOVASCULAR: Regular rhythm. S1, S2 without murmur, gallop or rub. LUNGS: Global decrease in breath sounds, but otherwise clear to percussion and auscultation. ABDOMEN: Soft. Bowel sounds normoactive without mass, guarding, rebound or organomegaly. EXTREMITIES: Reveal no clubbing, cyanosis or edema. There is no Homans' sign. SKIN: No rash, excoriation. NEUROLOGIC: No focal findings. LYMPHADENOPATHY: There are no lymph nodes palpated in the supraclavicular notch nor in the cervical, inguinal or axillary areas. IMPRESSION: 1. Syncope. 2. Cardiac arrhythmia. 3. Resolved hypertension. 4. Pulmonary hypertension by echocardiogram. PLAN: Awaiting serology regarding collagen vascular disease etiology for PAH. Awaiting cardiac cath data showing the PA pressures, systemic vascular resistance and pulmonary capillary wedge pressures. Once we have decided on the stage, the class of pulmonary hypertension medications can be considered with discussion with the patient and her daughter. The degree of pulmonary hypertension is unknown at this time and cannot be based on RVSP seen on echocardiogram alone. The right heart catheterization data is essential in confirming the diagnosis and deciding on the need for further intervention. I will await to hear the results of the above testing. V/Q scan is pending today to look for the possibility of CTEP. Thank you for the opportunity to continue to follow this karen patient. We will follow closely with you. Donny Salter MD
--- NOTE | 2017-10-01 15:49 | NM ---
COMPARISON: Portable chest 09/26/2017 TECHNIQUE: 30.1 mCi technetium 99-m DTPA aerosol. 3.3 mCI technetium 99-m MAA administered intravenously. FINDINGS: VENTILATION COMPONENT: Normal. PERFUSION COMPONENT: Normal. IMPRESSION: Lowprobability ventilation perfusion scan for pulmonary embolism.
--- NOTE | 2017-10-01 16:31 | CP.PCM.PN ---
Subjective - Date & Time of Evaluation Date of Evaluation: 10/01/17 Time of Evaluation: 10:10 - Subjective Subjective: Seen and examined outside earlier today, chart was reviewed. Patient denies nausea, vomiting, or abdominal pain. Had 3 loose bowel movements this morning but no bleeding. On contact for C. difficile, on oral vancomycin. Stool is less loose. Objective - Vital Signs/Intake and Output Vital Signs (last 24 hours): Temp Pulse Resp BP Pulse Ox 97.8 F 75 20 123/65 95 10/01/17 12:00 10/01/17 14:00 10/01/17 12:00 10/01/17 12:00 10/01/17 05:55 - Medications Medications: Current Medications Acetaminophen (Tylenol 325mg Tab) 650 mg PO Q4H PRN PRN Reason: Pain, Mild (1-3) Last Admin: 09/30/17 22:02 Dose: 650 mg Aspirin (Aspirin Chewable) 81 mg PO DAILY [facility] Last Admin: 09/27/17 11:00 Dose: Not Given Atorvastatin Calcium (Lipitor) 10 mg PO HS [facility] Last Admin: 09/30/17 22:01 Dose: 10 mg Famotidine (Pepcid) 40 mg PO HS [facility] Last Admin: 09/30/17 22:01 Dose: 40 mg Furosemide (Lasix) 40 mg PO DAILY [facility] Last Admin: 10/01/17 09:44 Dose: 40 mg Hydrocortisone (Anusol-Hc) 25 mg RC BID [facility] Last Admin: 10/01/17 09:46 Dose: Not Given Magnesium Oxide (Mag-Ox) 400 mg PO TID [facility] Last Admin: 10/01/17 13:35 Dose: 400 mg Potassium Chloride (Klor-Con 10) 30 meq PO TID [facility] Last Admin: 10/01/17 13:35 Dose: 30 meq Vancomycin HCl (Vancocin 25 Mg/Ml (Oral Use)) 125 mg PO QID [facility] PRN Reason: Protocol Stop: 10/09/17 10:01 Last Admin: 10/01/17 13:35 Dose: 125 mg - Labs Labs: 09/29/17 06:00 10/01/17 07:00 PT 19.7 SECONDS (9.4-12.5) H 10/01/17 07:00 INR 1.69 (0.93-1.08) H 10/01/17 07:00 APTT 37.0 Seconds (25.1-36.5) H 09/28/17 06:20 - Constitutional Appears: No Acute Distress - Head Exam Head Exam: NORMOCEPHALIC - Eye Exam Eye Exam: Normal appearance. absent: Scleral icterus - ENT Exam ENT Exam: Mucous Membranes Moist - Neck Exam Neck Exam: Normal Inspection - Respiratory Exam Respiratory Exam: NORMAL BREATHING PATTERN. absent: Respiratory Distress - Cardiovascular Exam Cardiovascular Exam: +S1, +S2 - GI/Abdominal Exam GI & Abdominal Exam: Soft, Normal Bowel Sounds. absent: Guarding, Tenderness, Rebound - Extremities Exam Extremities Exam: absent: Calf Tenderness, Pedal Edema - Neurological Exam Neurological Exam: Alert, Awake, Oriented x3 - Skin Skin Exam: Dry, Warm Assessment and Plan - Assessment and Plan (Free Text) Assessment: Assessment: Cdiff Colitis Syncopal episodes Status post recent pacemaker Exacerbation of CHF Elevated iron studies, rule out hemochromatosis GI bleed, positive guaiac but also had blood per rectum, ? Hemorrhoids, ? Ischemic colitis, ct scan no inflammation but limited study no contrast, no further episodes/ hgb stable. Atrial fibrillation on Coumadin History of colon polyp Diverticulosis Mildly elevated liver enzymes, may be secondary to hepatic congestion History of cholecystectomy Elevated troponin Leukocytosis Plan: hemochromatosis panel pending Monitor H&H Continue GI prophylaxis on Anusol Monitor LFTs On IV antibiotics On oral vancomycin on Coumadin hematology FU Discussed with pateint and daughter at bedside. Seen and discussed with Dr. Craven.
--- NOTE | 2017-10-01 18:15 | CP.PCM.PN ---
Subjective - Date & Time of Evaluation Date of Evaluation: 10/01/17 Time of Evaluation: 10:25 - Subjective Subjective: No fevers, not in distress, no diarrhea, no abdominal pain. Objective - Vital Signs/Intake and Output Vital Signs (last 24 hours): Temp Pulse Resp BP Pulse Ox 97.9 F 70 20 119/70 95 10/01/17 05:55 10/01/17 05:55 10/01/17 05:55 10/01/17 05:55 10/01/17 05:55 - Medications Medications: Current Medications Acetaminophen (Tylenol 325mg Tab) 650 mg PO Q4H PRN PRN Reason: Pain, Mild (1-3) Last Admin: 09/30/17 22:02 Dose: 650 mg Aspirin (Aspirin Chewable) 81 mg PO DAILY [facility] Last Admin: 09/27/17 11:00 Dose: Not Given Atorvastatin Calcium (Lipitor) 10 mg PO HS [facility] Last Admin: 09/30/17 22:01 Dose: 10 mg Famotidine (Pepcid) 40 mg PO HS [facility] Last Admin: 09/30/17 22:01 Dose: 40 mg Furosemide (Lasix) 40 mg PO DAILY [facility] Last Admin: 09/30/17 11:11 Dose: 40 mg Hydrocortisone (Anusol-Hc) 25 mg RC BID [facility] Last Admin: 09/30/17 17:56 Dose: 25 mg Magnesium Sulfate 2 gm/ Sodium (Chloride) 104 mls @ 102 mls/hr IV ONCE ONE Stop: 10/01/17 09:42 Magnesium Oxide (Mag-Ox) 400 mg PO TID [facility] Potassium Chloride (Klor-Con 10) 30 meq PO TID [facility] Vancomycin HCl (Vancocin 25 Mg/Ml (Oral Use)) 125 mg PO QID [facility] PRN Reason: Protocol Stop: 10/09/17 10:01 Last Admin: 09/30/17 22:01 Dose: 125 mg Warfarin Sodium (Coumadin) 5 mg PO ONCE ONE PRN Reason: Protocol Stop: 10/01/17 10:01 - Labs Labs: 09/29/17 06:00 10/01/17 07:00 PT 19.7 SECONDS (9.4-12.5) H 10/01/17 07:00 INR 1.69 (0.93-1.08) H 10/01/17 07:00 APTT 37.0 Seconds (25.1-36.5) H 09/28/17 06:20 - Constitutional Appears: Non-toxic, Chronically Ill - Head Exam Head Exam: NORMAL INSPECTION - ENT Exam ENT Exam: Mucous Membranes Moist - Respiratory Exam Respiratory Exam: Decreased Breath Sounds - Cardiovascular Exam Cardiovascular Exam: +S1, +S2 - GI/Abdominal Exam GI & Abdominal Exam: Soft. absent: Tenderness Assessment and Plan - Assessment and Plan (Free Text) Plan: Assessment consider C. diff. associated diarrhea unlikely ischemic colitis since no evidence seen on CT A/P history of SIRS due to acute on chronic CHF with no evidence of sepsis osteoporosis sick sinus syndrome S/P AICD and pacemaker placement 2017 S/P hysterectomy S/P cholecystectomy obesity with BMI 33 atrial fibrillation on anticoagulation Plan S/P 3 days of Merrem - cultures have been negative - WBC count has normalized as well will continue PO Vancomycin to complete 10 days of therapy (day 4 today) will continue to monitor clinically
[2017-10-02 05:59] VITALS: O2SAT 96
[2017-10-02 08:09] LABS: BLOOD UREA NITROGEN 18 mg/dL (7-21); CALCIUM 8.4 mg/dL (8.4-10.5); GFR AFRICAN-AMERICAN > 60; GFR NON-AFRICAN AMERICAN > 60
[2017-10-02 08:11] LABS: INR 1.75 (0.93-1.08); PROTHROMBIN TIME 20.4 SECONDS (9.4-12.5)
--- NOTE | 2017-10-02 08:12 | CP.PCM.PN ---
Subjective - Date & Time of Evaluation Date of Evaluation: 10/02/17 Time of Evaluation: 07:00 - Subjective Subjective: Stable on 2R. She feels much better today. No CP or SOB. No syncope or LOC. + PT and amb. in room yesterday. Her daughter is at the bedside. V/S noted. V. Paced. BP's better PE: Lungs: clear Cor.: S1S2 Abd.: soft Ext.: no edema Neuro.: alert Labs pending. BC X 2 NG at 5 days CXR noted: NAD ECG: V. Paced CT Head: noted Bleeding scan noted. No bleeding detected V/Q: low prob. Objective - Vital Signs/Intake and Output Vital Signs (last 24 hours): Temp Pulse Resp BP Pulse Ox 97.5 F L 70 19 122/60 96 10/02/17 05:58 10/02/17 05:58 10/02/17 05:58 10/02/17 05:58 10/02/17 05:58 - Medications Medications: Current Medications Acetaminophen (Tylenol 325mg Tab) 650 mg PO Q4H PRN PRN Reason: Pain, Mild (1-3) Last Admin: 10/02/17 02:20 Dose: 325 mg Aspirin (Aspirin Chewable) 81 mg PO DAILY [facility] Last Admin: 09/27/17 11:00 Dose: Not Given Atorvastatin Calcium (Lipitor) 10 mg PO HS [facility] Last Admin: 10/01/17 21:46 Dose: 10 mg Famotidine (Pepcid) 40 mg PO HS [facility] Last Admin: 10/01/17 21:46 Dose: 40 mg Furosemide (Lasix) 40 mg PO DAILY [facility] Last Admin: 10/01/17 09:44 Dose: 40 mg Hydrocortisone (Anusol-Hc) 25 mg RC BID [facility] Last Admin: 10/01/17 17:33 Dose: Not Given Magnesium Oxide (Mag-Ox) 400 mg PO TID [facility] Last Admin: 10/01/17 18:16 Dose: 400 mg Potassium Chloride (Klor-Con 10) 30 meq PO TID [facility] Last Admin: 10/01/17 18:16 Dose: 30 meq Vancomycin HCl (Vancocin 25 Mg/Ml (Oral Use)) 125 mg PO QID [facility] PRN Reason: Protocol Stop: 10/09/17 10:01 Last Admin: 10/01/17 21:46 Dose: 125 mg - Labs Labs: 04/28/18 06:00 10/01/17 07:00 PT 19.7 SECONDS (9.4-12.5) H 10/01/17 07:00 INR 1.69 (0.93-1.08) H 10/01/17 07:00 APTT 37.0 Seconds (25.1-36.5) H 09/28/17 06:20 Assessment and Plan - Assessment and Plan (Free Text) Assessment: Syncope at home Hypotension R/O infection/Sepsis Hypokalemia, hypomagnesemia CHF, diastolic Recent bronchitis/pneumonia A. Flutter with slow VR/VT episode.ICD implant with pocket hematoma, improving. Nl ICD fx and no arhythmia detected on interrogation 09/27/17 Brief CPR with rib fx. HLD Osteoporosis Surgeries: GB, Hysterectomy, Hernia Plan: Await todays labs. OOB as lon./PT/Ambulate as lon. AB as per ID PO KCL and PO mag. Hold lisinopril, metoprolol for now As per ID, Pulmonary, GI, Neuro., and Dr. Ruggiero Home later today planned. Case d/w Dr. Ruggiero.
[2017-10-02] MEDS: Magnesium Oxide 400 mg Tab UD PO SCH ×2 (10:34→14:41)
[2017-10-02] MEDS: Potassium Chloride 10 mEq ER Tab PO SCH ×2 (10:35→14:41)
[2017-10-02] MEDS: Vancomycin 25 MG/ML PO SCH ×2 (10:35→14:41)
[2017-10-02 12:17] VITALS: BP 123/63; PULSE 69; RESP 18; TEMP 97.2
--- NOTE | 2017-10-02 12:58 | CP.PCM.PN ---
Subjective - Date & Time of Evaluation Date of Evaluation: 10/02/17 Time of Evaluation: 10:20 - Subjective Subjective: Diarrhea is improved, no fevers, not in distress. Objective - Vital Signs/Intake and Output Vital Signs (last 24 hours): Temp Pulse Resp BP Pulse Ox 97.5 F L 70 19 122/60 96 10/02/17 05:58 10/02/17 05:58 10/02/17 05:58 10/02/17 05:58 10/02/17 05:58 - Medications Medications: Current Medications Acetaminophen (Tylenol 325mg Tab) 650 mg PO Q4H PRN PRN Reason: Pain, Mild (1-3) Last Admin: 10/02/17 02:20 Dose: 325 mg Aspirin (Aspirin Chewable) 81 mg PO DAILY [facility] Last Admin: 09/27/17 11:00 Dose: Not Given Atorvastatin Calcium (Lipitor) 10 mg PO HS [facility] Last Admin: 10/01/17 21:46 Dose: 10 mg Famotidine (Pepcid) 40 mg PO HS [facility] Last Admin: 10/01/17 21:46 Dose: 40 mg Furosemide (Lasix) 40 mg PO DAILY [facility] Last Admin: 10/01/17 09:44 Dose: 40 mg Hydrocortisone (Anusol-Hc) 25 mg RC BID [facility] Last Admin: 10/01/17 17:33 Dose: Not Given Magnesium Oxide (Mag-Ox) 400 mg PO TID [facility] Last Admin: 10/01/17 18:16 Dose: 400 mg Potassium Chloride (Klor-Con 10) 30 meq PO TID [facility] Last Admin: 10/01/17 18:16 Dose: 30 meq Vancomycin HCl (Vancocin 25 Mg/Ml (Oral Use)) 125 mg PO QID [facility] PRN Reason: Protocol Stop: 10/09/17 10:01 Last Admin: 10/01/17 21:46 Dose: 125 mg - Labs Labs: 09/29/17 06:00 10/02/17 07:00 PT 20.4 SECONDS (9.4-12.5) H 10/02/17 07:00 INR 1.75 (0.93-1.08) H 10/02/17 07:00 APTT 37.0 Seconds (25.1-36.5) H 09/28/17 06:20 - Constitutional Appears: Non-toxic, Chronically Ill - Head Exam Head Exam: NORMAL INSPECTION - Neck Exam Neck Exam: absent: Meningismus - Respiratory Exam Respiratory Exam: Decreased Breath Sounds - Cardiovascular Exam Cardiovascular Exam: +S1, +S2 - GI/Abdominal Exam GI & Abdominal Exam: Soft. absent: Tenderness Assessment and Plan - Assessment and Plan (Free Text) Plan: Assessment consider C. diff. associated diarrhea, slowly improving unlikely ischemic colitis since no evidence seen on CT A/P history of SIRS due to acute on chronic CHF with no evidence of sepsis osteoporosis sick sinus syndrome S/P AICD and pacemaker placement 2017 S/P hysterectomy S/P cholecystectomy obesity with BMI 33 atrial fibrillation on anticoagulation Plan S/P 3 days of Merrem - cultures have been negative - WBC count has normalized as well will continue PO Vancomycin to complete 10 days of therapy (day 5 today) - discussed with Dr. Contreras - recommend PO Vancomycin but if cost is prohibitive , may use PO Flagyl but discussed with patient and daughter risk of using Flagyl instead of PO Vancomycin
--- NOTE | 2017-10-02 15:39 | PN ---
DATE: 10/02/2017 PULMONARY PROGRESS NOTE SUBJECTIVE: The patient is comfortable at rest. She still gets dyspneic on exertion. She is being discharged today. I have finally received the cardiac cath data from [facility]. Right-sided catheterization was not done at the time of the left catheterization and a transesophageal echo was done, however and RVSP was 64 mmHg. This corresponds with the elevated RVSP seen on the transthoracic echocardiogram consistent with the diagnosis of pulmonary hypertension. PHYSICAL EXAMINATION: GENERAL: The patient is resting, being discharged today. VITAL SIGNS: Stable. She is afebrile. Blood pressure 110/70, oxygen saturation 96% on room air, respiratory rate 16. HEENT: Normocephalic. NECK: Supple. No JVD. CARDIOVASCULAR: Regular rhythm without murmur, gallop or rub. LUNGS: Global decrease in breath sounds, but clear to percussion and auscultation. ABDOMEN: Soft. Bowel sounds normoactive without mass, guarding, rebound or organomegaly. : Within normal limits EXTREMITIES: Reveal no clubbing, cyanosis or edema. There is no Anna sign. SKIN: No rash or excoriation. NEUROLOGICAL: No focal findings. LYMPHADENOPATHY: Not present. IMPRESSION: 1. Status post syncope. 2. Pulmonary hypertension. Echocardiogram and transesophageal echocardiogram both show elevated right ventricular systolic pressure consistent with pulmonary hypertension. The ventilation perfusion scan excludes the diagnosis of chronic thromboembolic pulmonary hypertension. The serology is negative for collagen vascular disease. PLAN: In order to treat this patient and prevent further deterioration, she should have a right-sided heart catheterization. I have discussed this with the patient and the patient's daughter. When she goes back to see Dr. De La Garza, I will discuss with him the need for this procedure. I understand that she recently had a left heart cath. Unfortunately, the right heart cath was not done at that time. It is difficult to consider going back for another procedure; yet, this is essential in making the diagnosis and offering treatment for pulmonary hypertension. We will follow closely with you as an outpatient if the patient so desires. Donny Salter MD [facility] # [id number] [facility]
--- NOTE | 2017-10-02 15:51 | CP.PCM.PN ---
Subjective - Date & Time of Evaluation Date of Evaluation: 10/02/17 Time of Evaluation: 10:35 - Subjective Subjective: Seen and examined at the bedside earlier today, daughter at bedside. No acute events reported. Diarrhea has improved. Had 1 bowel movement this morning which is firming up. No reports of any bleeding. No new complaints. Objective - Vital Signs/Intake and Output Vital Signs (last 24 hours): Temp Pulse Resp BP Pulse Ox 97.2 F L 69 18 123/63 96 10/02/17 12:00 10/02/17 12:00 10/02/17 12:00 10/02/17 12:00 10/02/17 05:58 - Medications Medications: Current Medications Acetaminophen (Tylenol 325mg Tab) 650 mg PO Q4H PRN PRN Reason: Pain, Mild (1-3) Last Admin: 10/02/17 10:33 Dose: 325 mg Aspirin (Aspirin Chewable) 81 mg PO DAILY [facility] Last Admin: 09/27/17 11:00 Dose: Not Given Atorvastatin Calcium (Lipitor) 10 mg PO HS [facility] Last Admin: 10/01/17 21:46 Dose: 10 mg Famotidine (Pepcid) 40 mg PO HS [facility] Last Admin: 10/01/17 21:46 Dose: 40 mg Furosemide (Lasix) 40 mg PO DAILY [facility] Last Admin: 10/02/17 10:35 Dose: 40 mg Hydrocortisone (Anusol-Hc) 25 mg RC BID [facility] Last Admin: 10/02/17 10:33 Dose: Not Given Magnesium Oxide (Mag-Ox) 400 mg PO TID [facility] Last Admin: 10/02/17 10:34 Dose: 400 mg Potassium Chloride (Klor-Con 10) 30 meq PO TID [facility] Last Admin: 10/02/17 10:35 Dose: 30 meq Vancomycin HCl (Vancocin 25 Mg/Ml (Oral Use)) 125 mg PO QID [facility] PRN Reason: Protocol Stop: 10/09/17 10:01 Last Admin: 10/02/17 10:35 Dose: 125 mg - Labs Labs: 09/29/17 06:00 10/02/17 07:00 PT 20.4 SECONDS (9.4-12.5) H 10/02/17 07:00 INR 1.75 (0.93-1.08) H 10/02/17 07:00 APTT 37.0 Seconds (25.1-36.5) H 09/28/17 06:20 - Constitutional Appears: No Acute Distress - Head Exam Head Exam: NORMOCEPHALIC - Eye Exam Eye Exam: Normal appearance. absent: Scleral icterus - ENT Exam ENT Exam: Mucous Membranes Moist - Neck Exam Neck Exam: Normal Inspection - Respiratory Exam Respiratory Exam: NORMAL BREATHING PATTERN. absent: Respiratory Distress - Cardiovascular Exam Cardiovascular Exam: +S1, +S2 - GI/Abdominal Exam GI & Abdominal Exam: Soft, Normal Bowel Sounds. absent: Guarding, Tenderness, Rebound - Extremities Exam Extremities Exam: absent: Calf Tenderness, Pedal Edema - Neurological Exam Neurological Exam: Alert, Awake, Oriented x3 Assessment and Plan - Assessment and Plan (Free Text) Assessment: Assessment: Cdiff Colitis Status post recent pacemaker Exacerbation of CHF Elevated iron studies, rule out hemochromatosis, serology reviewed,see note, less likely hemachromatosis s/p GI bleed, likely Hemorrhoids, ct scan no inflammation but limited study no contrast, no further episodes/ hgb stable. 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 Seen and discussed with Dr. Craven.
--- NOTE | 2017-10-03 05:36 | DS ---
HISTORY OF PRESENT ILLNESS: This is an 82-year-old female who is being discharged home after she had a prolonged course of sepsis. The patient was hypotensive when she first came into the ER. She was treated with IV antibiotics for . The patient has history of pulmonary hypertension, atrial fibrillation, CHF. The patient has improvement of her symptoms. She is able to ambulate. She does not wish to go to rehab facility and is going to be discharged home. Patient had V/Q scan for workup for her pulmonary hypertension, which was negative. She also had serology and was negative for hepatitis B, hepatitis C, and HIV. She had an MAYDA screen, which was negative; rheumatoid factor screen, which was negative. PHYSICAL EXAMINATION: VITAL SIGNS: Temperature is 97.5, pulse of 70, blood pressure 122/60, respirations 19, O2 saturation 96%. GENERAL: The patient is lying in bed, flat, comfortable. HEENT: No oral lesion. Anicteric sclerae. Moist mucosa. NECK: No JVD, adenopathy, or thyromegaly. CARDIOVASCULAR: S1 and S2, regular. No murmurs, rubs, or gallops. LUNGS: Clear to auscultation bilaterally. No wheeze, rales, or rhonchi. ABDOMEN: Bowel sounds are positive, soft, nontender, and nondistended. EXTREMITIES: No cyanosis, clubbing, or edema. ASSESSMENT: 1. Sepsis, resolved. 2. Hypertension, improved. 3. Congestive heart failure secondary to diastolic dysfunction, stable. 4. Pulmonary hypertension. 5. Tricuspid regurgitation. 6. Hypokalemia, improved. 7. Hypomagnesemia, improved. 8. Atrial fibrillation, on anticoagulation. 9. Osteoporosis. 10. Elevated troponin. 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 PLAN: The patient is currently comfortable. She is going to be discharged home. The patient's blood work indicates that her creatinine is stable; her magnesium has improved back to normal. She does require significant amount of potassium. Her white count is normal. She is going to be discharged on aspirin and Coumadin. The patient is going to be on Lipitor for dyslipidemia. She is going to continue with Lasix 40 mg twice a day. The patient is going to be on magnesium oxide 400 mg b.i.d. Lisinopril, beta-blockers, and metoprolol are on hold until she gets reevaluated as an outpatient. The patient is going to be on KCl 40 mEq daily and going to have a chemistry done within the week. I did speak to Dr. Rodriguez, went over to the patient's case and discharge medications with him. He is agreeable. The patient is also going to follow up with Dr. De La Garza. I spoke to the patient's daughter and went in detail regarding the patient's home medications. She has no complaints of any headaches or dizziness, no nausea or vomiting. CONDITION: Stable. ACTIVITY: Increase as tolerated. Jw Ruggiero MD
[2017-10-04 01:02] LABS: ANCA SCREEN POSITIVE (NEGATIVE)
== END 2017-10-02 16:21 | disposition home or self-care (01) | DRG 871 ==
LOC: ED 11:51 → ERH 15:01 → ICU 18:06 → 2RSO 09-28 23:24
PROVIDERS: ADMIT Internal Medicine Nephrology; ATTEND Internal Medicine Nephrology
DX: A41.9 Sepsis, unspecified organism (principal); I21.4 Non-ST elevation (NSTEMI) myocardial infarction; S22.39XA Fracture of one rib, unspecified side, initial encounter for closed fracture; I50.22 Chronic systolic (congestive) heart failure; A04.72 Enterocolitis due to Clostridium difficile, not specified as recurrent; I31.3 Pericardial effusion (noninflammatory); R65.20 Severe sepsis without septic shock; I25.10 Atherosclerotic heart disease of native coronary artery without angina pectoris; I11.0 Hypertensive heart disease with heart failure; J44.9 Chronic obstructive pulmonary disease, unspecified; K57.30 Diverticulosis of large intestine without perforation or abscess without bleeding; Z80.7 Family history of other malignant neoplasms of lymphoid, hematopoietic and related tissues; D32.9 Benign neoplasm of meninges, unspecified; D64.9 Anemia, unspecified; D69.6 Thrombocytopenia, unspecified; E66.9 Obesity, unspecified; Z68.33 Body mass index [BMI] 33.0-33.9, adult; E78.5 Hyperlipidemia, unspecified; E83.119 Hemochromatosis, unspecified; E83.42 Hypomagnesemia; E83.51 Hypocalcemia; E87.6 Hypokalemia; E86.0 Dehydration; I27.20 Pulmonary hypertension, unspecified; I08.2 Rheumatic disorders of both aortic and tricuspid valves; I48.91 Unspecified atrial fibrillation; I49.5 Sick sinus syndrome; Z86.010 Personal history of colon polyps; K64.9 Unspecified hemorrhoids; M81.0 Age-related osteoporosis without current pathological fracture; T38.0X5A Adverse effect of glucocorticoids and synthetic analogues, initial encounter; Z79.01 Long term (current) use of anticoagulants; Z79.82 Long term (current) use of aspirin; Z87.891 Personal history of nicotine dependence; Z90.49 Acquired absence of other specified parts of digestive tract; Z90.710 Acquired absence of both cervix and uterus; Z95.0 Presence of cardiac pacemaker; Z95.810 Presence of automatic (implantable) cardiac defibrillator

== ENCOUNTER 2017-10-07 18:13 | Emergency (ER) | payer MEDICARE ==
[2017-10-07 18:14] VITALS: PULSE 54
[2017-10-07 18:40] VITALS: RESP 18; BMI 33.2
--- NOTE | 2017-10-07 19:05 | ED PDOC ---
Arrival/HPI - General Chief Complaint: Trauma Time Seen by Provider: 10/07/17 18:40 Historian: Patient - History of Present Illness Narrative History of Present Illness (Text): 10/07/17 19:05 Pt is an 82 year old female brought in by family, with a past medical history of CHF, A fib and a pacemaker, who presents to the emergency department for a fall while walking with a walker at home today. Daughter reports that she tried to catch her mother from falling backwards while walking but pt hit the back of her head on a blunt object and right shoulder. Patient was just discharged from hospital last week for ACS. Patient's daughter states that the patient has chronic low back pain that prevents her from sleeping well at night which is probably contributing to poor balance. Patient denies LOC, fever, chills, chest pain, shortness of breath, nausea, vomiting, diarrhea, urinary symptoms, neck pain, headache, dizziness, or any other complaints. PMD: Dr. De La Garza Time/Duration: Prior to Arrival Symptom Onset: Sudden Severity Level: 4 Activities at Onset: Rest, Light Context: Standing, Walking, Home Past Medical History - Provider Review Nursing Documentation Reviewed: Yes - Travel History Have you recently traveled outside [place] w/in the past 3 mons?: No - Infectious Disease Hx of Infectious Diseases: None - Tetanus Immunization Tetanus Immunization: Unknown - Cardiac Hx Cardiac Disorders: Yes Hx Congestive Heart Failure: Yes - Pulmonary Hx Chronic Obstructive Pulmonary Disease (COPD): Yes - Neurological Hx Neurological Disorder: No - HEENT Hx HEENT Disorder: Yes Other/Comment: glasses - Renal Hx Renal Disorder: No - Endocrine/Metabolic Hx Endocrine Disorders: No - Hematological/Oncological Hx Blood Disorders: No - Integumentary Hx Dermatological Disorder: No - Musculoskeletal/Rheumatological Hx Arthritis: Yes - Gastrointestinal Hx Gastrointestinal Disorders: No - Genitourinary/Gynecological Hx Reproductive Disorders: No - Psychiatric Hx Psychophysiologic Disorder: No Hx Substance Use: No - Surgical History Hx Cholecystectomy: Yes Other/Comment: HEMORRHOIDECTOMY,HYSTERECTOMY - Anesthesia Hx Anesthesia: Yes Hx Anesthesia Reactions: No Hx Malignant Hyperthermia: No - Suicidal Assessment Feels Threatened In Home Enviroment: No Family/Social History - Physician Review Nursing Documentation Reviewed: Yes Family/Social History: No Known Family HX Smoking Status: Never Smoked Hx Alcohol Use: No Hx Substance Use: No Hx Substance Use Treatment: No Allergies/Home Meds Allergies/Adverse Reactions: Allergies No Known Allergies Allergy (Verified 10/07/17 18:39) Home Medications: Home Meds Medication Instructions Recorded Confirmed Atorvastatin Calcium [Lipitor] 10 mg PO DAILY 05/11/12 10/07/17 Warfarin [Coumadin] 2 mg PO 1800 05/11/12 10/07/17 Magnesium Oxide [Mag-Ox] 400 mg PO DAILY 08/17/17 10/07/17 Potassium Chloride [Klor-Con M20] 40 meq PO DAILY 08/17/17 10/07/17 Furosemide [Lasix] 40 mg PO DAILY 09/26/17 10/07/17 Metoprolol Succinate [Toprol XL] 50 mg PO BID 09/26/17 10/07/17 Review of Systems - Review of Systems Constitutional: Normal, Fatigue Eyes: Normal ENT: Normal Respiratory: Normal Cardiovascular: Normal. absent: Chest Pain Gastrointestinal: Normal. absent: Abdominal Pain Genitourinary Female: Normal Musculoskeletal: Normal, Arthralgias, Back Pain Skin: Normal Neurological: Normal, Gait Changes Endocrine: Normal Hemo/Lymphatic: Normal Psychiatric: Normal Physical Exam Vital Signs Reviewed: Yes Vital Signs Pulse Resp BP Pulse Ox 10/07/17 21:29 71 18 134/79 99 10/07/17 18:39 70 18 124/60 95 Temperature: Afebrile Blood Pressure: Normal Pulse: Regular Respiratory Rate: Normal Appearance: Positive for: Well-Appearing, Non-Toxic, Comfortable Pain Distress: Mild Mental Status: Positive for: Alert and Oriented X 3 - Systems Exam Head: Present: Atraumatic, Normocephalic Pupils: Present: PERRL Extroacular Muscles: Present: EOMI Conjunctiva: Present: Normal Mouth: Present: Moist Mucous Membranes Neck: Present: Normal Range of Motion Respiratory/Chest: Present: Clear to Auscultation, Good Air Exchange. No: Respiratory Distress, Accessory Muscle Use Cardiovascular: Present: Regular Rate and Rhythm, Normal S1, S2. No: Murmurs Abdomen: No: Tenderness, Distention, Peritoneal Signs Back: Present: Normal Inspection Upper Extremity: Present: Normal Inspection, Normal ROM, NORMAL PULSES, Tenderness (right GHJ), Neurovascularly Intact, Temperature Abnormalties, Capillary Refill < 2s. No: Cyanosis, Edema, Erythema, Deformity Lower Extremity: Present: Normal Inspection, NORMAL PULSES, Normal ROM, Neurovascularly Intact, Capillary Refill < 2 s. No: Edema, CALF TENDERNESS, Anna's Sign, Tenderness, Deformity Neurological: Present: GCS=15, CN II-XII Intact, Speech Normal, Motor Func Grossly Intact, Normal Sensory Function. No: Normal Cerebellar Funct, Gait Normal Skin: Present: Warm, Dry, Normal Color. No: Rashes Psychiatric: Present: Alert, Oriented x 3, Normal Insight, Normal Concentration Medical Decision Making ED Course and Treatment: 10/07/17 19:11 Impression Pt is an 82 year old female brought in by family, with a past medical history of CHF, A fib and a pacemaker, who presents to the emergency department for a fall while walking with a walker at home today. Plan Plain film of right shoulder, LS and pelvis, chest Head CT w/o contrast Labs Progress note Spoke with family about admitting but pt refuses unless fracture or other found Morphine given for pain 10/07/17 20:20 IMPRESSION: No CT evidence of acute intracranial abnormality. Please see findings as above. Correlate clinically. Followup as warranted. 10/07/17 21:09 Pt was asked to stand and walk with walker as bench edward for discharge-->pt passed Discussed lidocaine patch and percocet use and cautions with both daughters and pt Advised to f/u with dr De La Garza for pain management and PT/OT VSS on d/c Spoke with pharmacy 10/08/17 to have lidocaine patch changed to 1 patch daily ( 12hrs on and 12hrs off) #5 patches - Lab Interpretations Lab Results: 10/07/17 19:20 10/07/17 19:20 Lab Results 10/07/17 19:20: Sodium 138, Potassium 3.4 L, Chloride 93 L, Carbon Dioxide 35 H , Anion Gap 13, BUN 25 H, Creatinine 0.8, Est GFR ( Amer) > 60, Est GFR ( Non-Af Amer) > 60, Random Glucose 98, Calcium 8.5, Total Bilirubin 1.1, AST 37 H , ALT 35, Alkaline Phosphatase 103, Lactate Dehydrogenase 981 H, Total Creatine Kinase 27 L, Troponin I 0.08 D, Total Protein 6.1, Albumin 3.3, Globulin 2.8, Albumin/Globulin Ratio 1.2 10/07/17 19:20: WBC 6.3 D, RBC 3.79, Hgb 10.9 L, Hct 32.8 L, MCV 86.5, MCH 28.8 , MCHC 33.2, RDW 15.7 H, Plt Count 172, MPV 10.4, Gran % 62.4, Lymph % (Auto) 28.2, Harris % (Auto) 6.2 H, Eos % (Auto) 2.9, Baso % (Auto) 0.3, Gran # 3.90, Lymph # (Auto) 1.8, Harris # (Auto) 0.4, Eos # (Auto) 0.2, Baso # (Auto) 0.02 - RAD Interpretation Narrative RAD Interpretations (Text): 10/07/17 20:19 CT Scan HEAD W/O CONTRAST Exam Date: 10/07/17 This imaging exam was performed at EXAM: CT Head Without Intravenous Contrast CLINICAL HISTORY: 82 years old, female; Injury or trauma; Fall; Initial encounter; Sprain or strain TECHNIQUE: Axial computed tomography images of the head/brain without intravenous contrast. All CT scans at this facility use one or more dose reduction techniques, viz.: automated exposure control; ma/kV adjustment per patient size (including targeted exams where dose is matched to indication; i.e. head); or iterative reconstruction technique. Coronal and sagittal reformatted images were created and reviewed. COMPARISON: CT - HEAD W/O CONTRAST 2017-09-26 17:47 FINDINGS: Brain: 2 cm calcified lesion at the right anterior aspect of the interhemispheric falx in the frontal lobe near vertex, likely representing meningioma, unchanged. Atrophy. Bilateral white matter hypoattenuation most consistent with chronic ischemic small vessel changes. Vascular calcification. No evidence hemorrhage. No edema. Ventricles: No hydrocephalus. Bones/joints: Skull is intact. Soft tissues: No acute abnormality as visualized. Sinuses: Left maxillary sinus polyp versus mucous retention cyst. Evidence of small fluid level in the left sphenoid sinus. Mastoid air cells: No mastoid effusion. IMPRESSION: No CT evidence of acute intracranial abnormality. Please see findings as above. Correlate clinically. Followup as warranted. Radiology Orders: 10/07/17 18:48 CHEST ONE VIEW [RAD] Stat 10/07/17 18:49 HEAD W/O CONTRAST [CT] Stat PELVIS ONE VIEW [RAD] Stat 10/07/17 19:04 SHOULDER RIGHT [RAD] Stat 10/07/17 19:14 LS SPINE AP/LAT [RAD] Stat - Medication Orders Current Medication Orders: Discontinued Medications Morphine Sulfate (Morphine) 2 mg IVP STAT STA Stop: 10/07/17 19:28 Last Admin: 10/07/17 20:20 Dose: MAR Pain Assessment Document 10/07/17 20:20 EQ (Rec: 10/07/17 20:20 EQ [id number]) Pain Reassessment Is this a pain reassessment? No Sleep Is patient sleeping during reassessment? No Morphine Sulfate (Morphine) 2 mg IM STAT STA Stop: 10/07/17 20:01 Last Admin: 10/07/17 20:19 Dose: 2 mg MAR Pain Assessment Document 10/07/17 20:19 EQ (Rec: 10/07/17 20:20 EQ [id number]) Pain Reassessment Is this a pain reassessment? No Sleep Is patient sleeping during reassessment? No Presence of Pain Presence of Pain Yes IM Administration Charges Document 10/07/17 20:19 EQ (Rec: 10/07/17 20:20 EQ [id number]) Charges for Administration # of IM Administrations 1 Disposition/Present on Arrival - Present on Arrival Any Indicators Present on Arrival: Yes History of DVT/PE: No History of Uncontrolled Diabetes: No Urinary Catheter: No History of Decub. Ulcer: No History Surgical Site Infection Following: None - Disposition Have Diagnosis and Disposition been Completed?: Yes Diagnosis: Lumbago of lumbosacaral region with sciatica Disposition: HOME/ ROUTINE Disposition Time: 21:04 Patient Plan: Discharge Condition: STABLE Discharge Instructions (ExitCare): Low Back Pain (DC), Sciatica (DC) Additional Instructions: Devika thank you for letting us take care of you today. Your provider was DREA Piña. You were treated for Low back pain with sciatica. The emergency medical care you received today was directed at your acute symptoms. If you were prescribed any medication, please fill it and take as directed. It may take several days for your symptoms to resolve. Return to the Emergency Department if your symptoms worsen, do not improve, or if you have any other problems. Please follow up with Dr De La Garza in the next few days to talk about managing low back pain and preventing falls Please contact your doctor or call one of the physicians/clinics you have been referred to that are listed on the Patient Visit Information form that is included in your discharge packet. Bring any paperwork you were given at discharge with you along with any medications you are taking to your follow up visit. Our treatment cannot replace ongoing medical care by a primary care provider (PCP) outside of the emergency department. Thank you for allowing the [facility] team to be part of your care today. If you had an X-Ray or CT scan: A Radiologist will review the ED reading if any change in treatment is needed we will contact you. If you had a blood, urine, or wound culture: It will take several days for the results, if any change in treatment is needed we will contact you. Prescriptions: Acetaminophen/Oxycodone Hydr [Oxycodone and Acetaminophen 325 mg-2.5 mg] 1 tab PO Q6 #20 tab Lidocaine 1 each TP Q12 5 Days #10 adh..patch Referrals: Rafat De La Garza MD [Primary Care Provider] - Follow up with primary Forms: [employer] (Armenian)
[2017-10-07] MEDS ORDERED: Morphine 4 mg/ml ISec IVP STA (19:27)
[2017-10-07 19:54] LABS: BASO # 0.02 K/mm3 (0.0-2.0); BASO % 0.3 % (0.0-3.0); EOS # 0.2 (0.0-0.7); EOS % 2.9 % (1.5-5.0); GRAN # 3.9 (1.4-6.5); GRAN % 62.4 % (50.0-68.0); HEMOGLOBIN 10.9 g/dL (12.0-16.0); LYMPH # 1.8 (1.2-3.4); LYMPH % 28.2 % (22.0-35.0); MEAN CELL VOLUME 86.5 fl (80.0-105.0); MEAN CORPUSCULAR HEMOGLOBIN 28.8 pg (25.0-35.0); MEAN CORPUSCULAR HGB CONC 33.2 g/dl (31.0-37.0); MEAN PLATELET VOLUME 10.4 fl (7.0-11.0); MONO # 0.4 (0.1-0.6); MONO % 6.2 % (1.0-6.0); RBC 3.79 10^6/uL (3.5-6.1); RED CELL DISTRIBUTION WIDTH 15.7 % (11.5-14.5); WHITE BLOOD COUNT 6.3 10^3/ul (4.5-11.0)
[2017-10-07 20:00] LABS: ALB/GLOB RATIO 1.2 (1.1-1.8); ALBUMIN 3.3 g/dL (3.0-4.8); ALT/SGPT 35 U/L (7-56); AST/SGOT 37 U/L (14-36); BLOOD UREA NITROGEN 25 mg/dL (7-21); CALCIUM 8.5 mg/dL (8.4-10.5); GFR AFRICAN-AMERICAN > 60; GFR NON-AFRICAN AMERICAN > 60
[2017-10-07] MEDS ORDERED: Morphine 4 mg/ml ISec IM STA (20:00)
[2017-10-07 20:08] LABS: TROPONIN I 0.08 ng/mL
--- NOTE | 2017-10-07 20:09 | CT ---
EXAM: CT Head Without Intravenous Contrast CLINICAL HISTORY: 82 years old, female; Injury or trauma; Fall; Initial encounter; Sprain or strain TECHNIQUE: Axial computed tomography images of the head/brain without intravenous contrast. All CT scans at this facility use one or more dose reduction techniques, viz.: automated exposure control; ma/kV adjustment per patient size (including targeted exams where dose is matched to indication; i.e. head); or iterative reconstruction technique. Coronal and sagittal reformatted images were created and reviewed. COMPARISON: CT - HEAD W/O CONTRAST 2017-09-26 17:47 FINDINGS: Brain: 2 cm calcified lesion at the right anterior aspect of the interhemispheric falx in the frontal lobe near vertex, likely representing meningioma, unchanged. Atrophy. Bilateral white matter hypoattenuation most consistent with chronic ischemic small vessel changes. Vascular calcification. No evidence hemorrhage. No edema. Ventricles: No hydrocephalus. Bones/joints: Skull is intact. Soft tissues: No acute abnormality as visualized. Sinuses: Left maxillary sinus polyp versus mucous retention cyst. Evidence of small fluid level in the left sphenoid sinus. Mastoid air cells: No mastoid effusion. IMPRESSION: No CT evidence of acute intracranial abnormality. Please see findings as above. Correlate clinically. Followup as warranted.
[2017-10-07 21:30] VITALS: BP 134/79; PULSE 71; O2SAT 99
--- NOTE | 2017-10-08 09:05 | RAD ---
PROCEDURE: CHEST RADIOGRAPH, 1 VIEW HISTORY: Fall COMPARISON: 09/26/2017 FINDINGS: LUNGS: Clear. PLEURA: No pneumothorax or pleural fluid seen. CARDIOVASCULAR: Mild cardiomegaly. Pacemaker OSSEOUS STRUCTURES: No significant abnormalities. VISUALIZED UPPER ABDOMEN: Normal. OTHER FINDINGS: None. IMPRESSION: No active disease.
--- NOTE | 2017-10-08 09:20 | RAD ---
PROCEDURE: Radiographs of the pelvis. HISTORY: Fall COMPARISON: None. FINDINGS: BONES: Pelvic Bones: Unremarkable. Hips: Grossly unremarkable. JOINTS: Sacroiliac Joints: Unremarkable. Pubic Symphysis: Unremarkable. OTHER FINDINGS: None. IMPRESSION: Unremarkable radiographs of the pelvis.
--- NOTE | 2017-10-08 09:23 | RAD ---
PROCEDURE: Radiographs of the Lumbar Spine. HISTORY: Fall COMPARISON: No prior. FINDINGS: BONES: There is a severe bi concave compression deformity of L1. This could be seen on the CT study dated 09/03/2015. There is a mild compression deformity of the superior endplate of L3. This was not seen on the previous exam. The age is uncertain. DISC SPACES: Unremarkable. OTHER FINDINGS: None. IMPRESSION: Chronic compression fracture of L1. Compression fracture of the superior endplate of L3, age uncertain
--- NOTE | 2017-10-08 09:28 | RAD ---
PROCEDURE: Radiographs of the Right Shoulder HISTORY: Fall COMPARISON: No prior. FINDINGS: BONES: Normal. No fracture. JOINTS: Normal. Glenohumeral and acromioclavicular joints preserved. No osteoarthritis. SOFT TISSUES: Calcifications are seen in the rotator cuff consistent with calcific tendonitis. OTHER FINDINGS: None. IMPRESSION: No acute findings
== END 2017-10-07 21:31 | disposition home or self-care (01) ==
LOC: ED 18:13
DX: M54.40 Lumbago with sciatica, unspecified side (principal); I50.9 Heart failure, unspecified; I48.91 Unspecified atrial fibrillation; Z95.0 Presence of cardiac pacemaker
CPT/HCPCS: 70450; 71045; 72100; 72170; 73030; 80053; 82550; 83615; 84484; 85025; 96372; 99284; J2270

== ENCOUNTER 2018-02-16 03:51 | Emergency (ER) | payer MEDICARE ==
[2018-02-16 03:52] VITALS: PULSE 54
[2018-02-16 04:34] VITALS: BMI 32.0
[2018-02-16] MEDS ORDERED: Morphine 2 mg/ml ISec IM STA (05:03)
[2018-02-16 05:10] VITALS: RESP 18; TEMP 97.9
--- NOTE | 2018-02-16 05:20 | ED PDOC ---
Arrival/HPI - General Chief Complaint: Lower Extremity Problem/Injury Time Seen by Provider: 02/16/18 04:57 Historian: Patient - History of Present Illness Narrative History of Present Illness (Text): 02/16/18 05:16 82 year old female, whose past medical history includes atrial fibrillation, a pacemaker, and osteoarthritis, who presents to the Emergency department complaining of right buttox pain that radiates down right thigh. Patient denies any fever, chills, trauma, leg weakness, or any other complaints. Time/Duration: Prior to Arrival Symptom Onset: Gradual Symptom Course: Unchanged Activities at Onset: Light Context: Home Past Medical History - Provider Review Nursing Documentation Reviewed: Yes - Infectious Disease Hx of Infectious Diseases: None - Tetanus Immunization Tetanus Immunization: Unknown - Cardiac Hx Cardiac Disorders: Yes Hx Congestive Heart Failure: Yes - Pulmonary Hx Chronic Obstructive Pulmonary Disease (COPD): Yes - Neurological Hx Neurological Disorder: No - HEENT Hx HEENT Disorder: Yes Other/Comment: glasses - Renal Hx Renal Disorder: No - Endocrine/Metabolic Hx Endocrine Disorders: No - Hematological/Oncological Hx Blood Disorders: No - Integumentary Hx Dermatological Disorder: No - Musculoskeletal/Rheumatological Hx Arthritis: Yes - Gastrointestinal Hx Gastrointestinal Disorders: No - Genitourinary/Gynecological Hx Reproductive Disorders: No - Psychiatric Hx Psychophysiologic Disorder: No Hx Substance Use: No - Surgical History Hx Cholecystectomy: Yes Other/Comment: HEMORRHOIDECTOMY,HYSTERECTOMY - Anesthesia Hx Anesthesia: Yes Hx Anesthesia Reactions: No Hx Malignant Hyperthermia: No - Suicidal Assessment Feels Threatened In Home Enviroment: No Family/Social History - Physician Review Nursing Documentation Reviewed: Yes Family/Social History: Unknown Family HX Smoking Status: Never Smoked Hx Alcohol Use: No Hx Substance Use: No Hx Substance Use Treatment: No Allergies/Home Meds Allergies/Adverse Reactions: Allergies No Known Allergies Allergy (Verified 02/16/18 04:34) Home Medications: Home Meds Medication Instructions Recorded Confirmed Atorvastatin Calcium [Lipitor] 10 mg PO DAILY 05/11/12 02/16/18 Warfarin [Coumadin] 2 mg PO 1800 05/11/12 02/16/18 Magnesium Oxide [Mag-Ox] 400 mg PO DAILY 08/17/17 02/16/18 Potassium Chloride [Klor-Con M20] 40 meq PO DAILY 08/17/17 02/16/18 Furosemide [Lasix] 40 mg PO DAILY 09/26/17 02/16/18 Metoprolol Succinate XL [Toprol XL] 50 mg PO BID 09/26/17 02/16/18 Review of Systems - Physician Review All systems were reviewed & negative as marked: Yes - Review of Systems Constitutional: Normal Eyes: Normal ENT: Normal Respiratory: Normal. absent: SOB, Cough Cardiovascular: Normal. absent: Chest Pain Gastrointestinal: Normal. absent: Abdominal Pain Genitourinary Female: Normal. absent: Dysuria, Frequency Musculoskeletal: Other (right buttox pain that radiates down rt thigh). absent : Back Pain, Neck Pain Skin: Normal. absent: Rash Neurological: Normal. absent: Headache, Dizziness Endocrine: Normal Hemo/Lymphatic: Normal Psychiatric: Normal Physical Exam Vital Signs Reviewed: Yes Vital Signs Temp Pulse Resp BP Pulse Ox 02/16/18 06:25 85 18 110/82 100 02/16/18 04:45 97.9 F 80 18 106/67 98 Temperature: Afebrile Blood Pressure: Normal Pulse: Regular Respiratory Rate: Normal Appearance: Positive for: Well-Appearing, Non-Toxic, Comfortable Pain Distress: None Mental Status: Positive for: Alert and Oriented X 3 - Systems Exam Head: Present: Atraumatic, Normocephalic Pupils: Present: PERRL Extroacular Muscles: Present: EOMI Conjunctiva: Present: Normal Mouth: Present: Moist Mucous Membranes Neck: Present: Normal Range of Motion Respiratory/Chest: Present: Clear to Auscultation, Good Air Exchange. No: Respiratory Distress, Accessory Muscle Use Cardiovascular: Present: Regular Rate and Rhythm, Normal S1, S2. No: Murmurs Abdomen: No: Tenderness, Distention, Peritoneal Signs Back: Present: Normal Inspection Upper Extremity: Present: Normal Inspection. No: Cyanosis, Edema Lower Extremity: Present: Normal ROM, Tenderness (sciatic notch), Neurovascularly Intact, Other (discomfort with lifting of straight rt leg). No : Edema, CALF TENDERNESS, Anna's Sign Neurological: Present: GCS=15, CN II-XII Intact, Speech Normal, Motor Func Grossly Intact, Normal Sensory Function Skin: Present: Warm, Dry, Normal Color. No: Rashes Psychiatric: Present: Alert, Oriented x 3, Normal Insight, Normal Concentration Medical Decision Making ED Course and Treatment: 02/16/18 05:20 Impression: 82 year old female presents to the emergency department complaining of right buttox pain that radiates down he rt thigh. Plan: -- Morphine -- Reassess and disposition Progress Notes: 02/16/18 06:20 Patient with relief following treatment in ED. - Medication Orders Current Medication Orders: Discontinued Medications Morphine Sulfate (Morphine) 2 mg IM STAT STA Stop: 02/16/18 05:04 Last Admin: 02/16/18 05:17 Dose: 2 mg MAR Pain Assessment Document 02/16/18 05:17 AD (Rec: 02/16/18 05:18 [place] [facility] [place] [facility] [id number] Pain Reassessment Is this a pain reassessment? No Presence of Pain Presence of Pain Yes Location Left, Right or Bilateral Right Description Intensity of Pain at present 8 Pain Behavior Facial Grimacing IM Administration Charges Document 02/16/18 05:17 AD (Rec: 02/16/18 05:18 AD [facility] [id number] Injection Site MAR Injection Site Right Deltoid Charges for Administration # of IM Administrations 1 - Scribe Statement The provider has reviewed the documentation as recorded by the Scribserge Woodson All medical record entries made by the Scribe were at my direction and personally dictated by me. I have reviewed the chart and agree that the record accurately reflects my personal performance of the history, physical exam, medical decision making, and the department course for this patient. I have also personally directed, reviewed, and agree with the discharge instructions and disposition. Disposition/Present on Arrival - Present on Arrival Any Indicators Present on Arrival: No History of DVT/PE: No History of Uncontrolled Diabetes: No Urinary Catheter: No History of Decub. Ulcer: No History Surgical Site Infection Following: None - Disposition Have Diagnosis and Disposition been Completed?: Yes Diagnosis: Sciatica Disposition: HOME/ ROUTINE Disposition Time: 06:23 Patient Plan: Discharge Condition: GOOD Discharge Instructions (ExitCare): Sciatica (DC) Additional Instructions: Take meds as prescribed/avoid placing any direct pressure over the affected area /warm compresses/follow up with your doctor this week Prescriptions: Tramadol HCl [Ultram] 50 mg PO Q6 PRN #16 tab PRN Reason: Pain, Moderate (4-7) Referrals: Rafat De La Garza MD [Primary Care Provider] - Follow up with primary Forms: [employer] (E[place]ian)
[2018-02-16 07:27] VITALS: BP 110/82; PULSE 85; O2SAT 100
== END 2018-02-16 06:25 | disposition home or self-care (01) ==
LOC: ED 03:51
DX: M54.30 Sciatica, unspecified side (principal)
CPT/HCPCS: 96372; 99283; J2270

== ENCOUNTER 2018-03-13 18:37 | Observation (INO) | payer MEDICARE ==
[2018-03-13 18:37] VITALS: PULSE 54
--- NOTE | 2018-03-13 19:37 | ED PDOC ---
Arrival/HPI - General Chief Complaint: Chest Pain Time Seen by Provider: 03/13/18 19:10 Historian: Patient, Family - History of Present Illness Narrative History of Present Illness (Text): 03/13/18 19:33 Patient is a 82 year old female whose past medical history includes pacemaker- defibrillator placement, who presents to the Emergency department with family members complaining of chest pain. Patient reports experiencing intermittent chest pain that started earlier today. As per family member patient admitted that chest pain worsened throughout the day and started radiating to her back, collar bone, and feels nauseas. Patent denies shortness of breath but admits the chest pain is exacerbated with inhalation. Patient denies fevers, chills, cough, shortness of breath, abdominal pain, leg pain, vomiting, diarrhea, back pain, neck pain,headache, dizziness, or any other complaint. 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: Time/Duration: Other (Today) Symptom Onset: Sudden Symptom Course: Intermittent Context: Home Past Medical History - Provider Review Nursing Documentation Reviewed: Yes - Infectious Disease Hx of Infectious Diseases: None - Tetanus Immunization Tetanus Immunization: Unknown - Cardiac Hx Cardiac Disorders: Yes Hx Atrial Fibrillation: Yes Hx Congestive Heart Failure: Yes Hx LA: Yes Other/Comment: L sided pacemaker+defibrillator - Pulmonary Hx Chronic Obstructive Pulmonary Disease (COPD): Yes - Neurological Hx Neurological Disorder: No - HEENT Hx HEENT Disorder: Yes Other/Comment: glasses - Renal Hx Renal Disorder: No - Endocrine/Metabolic Hx Endocrine Disorders: No - Hematological/Oncological Hx Blood Disorders: No - Integumentary Hx Dermatological Disorder: No - Musculoskeletal/Rheumatological Hx Arthritis: Yes - Gastrointestinal Hx Gastrointestinal Disorders: No - Genitourinary/Gynecological Hx Reproductive Disorders: No - Psychiatric Hx Psychophysiologic Disorder: No Hx Substance Use: No - Surgical History Hx Cholecystectomy: Yes Hx Hysterectomy: Yes Other/Comment: HEMORRHOIDECTOMY,HYSTERECTOMY. L sided pacemaker defibrillator - Anesthesia Hx Anesthesia: Yes Hx Anesthesia Reactions: No Hx Malignant Hyperthermia: No - Suicidal Assessment Feels Threatened In Home Enviroment: No Family/Social History - Physician Review Nursing Documentation Reviewed: Yes Smoking Status: Never Smoked Hx Alcohol Use: No Hx Substance Use: No Hx Substance Use Treatment: No Allergies/Home Meds Allergies/Adverse Reactions: Allergies No Known Allergies Allergy (Verified 02/16/18 04:34) Home Medications: Home Meds Medication Instructions Recorded Confirmed Atorvastatin Calcium [Lipitor] 10 mg PO DAILY 05/11/12 02/16/18 Warfarin [Coumadin] 2 mg PO 1800 05/11/12 02/16/18 Magnesium Oxide [Mag-Ox] 400 mg PO DAILY 08/17/17 02/16/18 Potassium Chloride [Klor-Con M20] 40 meq PO DAILY 08/17/17 02/16/18 Furosemide [Lasix] 40 mg PO DAILY 09/26/17 02/16/18 Metoprolol Succinate XL [Toprol XL] 50 mg PO BID 09/26/17 02/16/18 Review of Systems - Physician Review All systems were reviewed & negative as marked: Yes - Review of Systems Constitutional: absent: Fevers, Night Sweats Respiratory: absent: SOB, Cough Cardiovascular: Chest Pain Gastrointestinal: Nausea. absent: Abdominal Pain, Diarrhea, Vomiting Musculoskeletal: absent: Back Pain, Neck Pain Neurological: absent: Headache, Dizziness Physical Exam Vital Signs Reviewed: Yes Vital Signs Temp Pulse Resp BP Pulse Ox 03/13/18 18:44 98.4 F 74 18 131/77 95 Temperature: Afebrile Blood Pressure: Normal Pulse: Regular Respiratory Rate: Normal Appearance: Positive for: Well-Appearing Mental Status: Positive for: Alert and Oriented X 3 - Systems Exam Head: Present: Atraumatic, Normocephalic Pupils: Present: PERRL Extroacular Muscles: Present: EOMI Conjunctiva: Present: Normal Mouth: Present: Moist Mucous Membranes Neck: Present: Normal Range of Motion Respiratory/Chest: Present: Clear to Auscultation, Good Air Exchange. No: Respiratory Distress, Accessory Muscle Use Cardiovascular: Present: Regular Rate and Rhythm, Normal S1, S2. No: Murmurs Abdomen: No: Tenderness, Distention, Peritoneal Signs Back: Present: Normal Inspection Upper Extremity: Present: Normal Inspection. No: Cyanosis, Edema Lower Extremity: Present: Normal Inspection. No: Edema Neurological: Present: GCS=15, CN II-XII Intact, Speech Normal Skin: Present: Warm, Dry, Normal Color. No: Rashes Psychiatric: Present: Alert, Oriented x 3, Normal Insight, Normal Concentration Medical Decision Making ED Course and Treatment: 03/13/18 19:33 Impression: Patient is a 82 year old female who is complaining of intermittent worsening chest pain that started this morning. Chest pain radiates to back and collar bone, and patient feels nauseas. Differential Diagnosis included but are not limited to: Chest pain vs. ACS vs. CHF Plan: -- EKG -- Cardiac enzymes -- Labs -- Blood work -- Chest X-ray -- Urinalysis -- O2 via nasal cannula -- Reassess and disposition Prior Visits: Notes and results from previous visits were reviewed. Progress Notes: 03/13/18 18:40 EKG shows paced rhythm at 74 BPM. Interpreted by me. 03/13/18 21:[address] Ruggiero, who is aware and agrees with plan. Accepts pt in to his service. Pt will go to remote telemetry observation for chest pain. - Lab Interpretations I have reviewed the lab results: Yes - RAD Interpretation Cut And Cover Line Worker: ED Physician - EKG Interpretation Interpreted by ED Physician: Yes Type: 12 lead EKG - Scribe Statement The provider has reviewed the documentation as recorded by the Scribe Braydon Garcia Provider Scribe Attestation: All medical record entries made by the Scribe were at my direction and personally dictated by me. I have reviewed the chart and agree that the record accurately reflects my personal performance of the history, physical exam, medical decision making, and the department course for this patient. I have also personally directed, reviewed, and agree with the discharge instructions and disposition. Disposition/Present on Arrival - Present on Arrival History of DVT/PE: No History of Uncontrolled Diabetes: No Urinary Catheter: No History of Decub. Ulcer: No History Surgical Site Infection Following: None - Disposition
[2018-03-13 20:31] LABS: BASO # 0.01 K/mm3 (0.0-2.0); BASO % 0.1 % (0.0-3.0); GRAN # 10.46 (1.4-6.5); GRAN % 85.2 % (50.0-68.0); HEMOGLOBIN 12.2 g/dL (12.0-16.0); LYMPH % 8.5 % (22.0-35.0); MEAN CELL VOLUME 87.5 fl (80.0-105.0); MEAN CORPUSCULAR HEMOGLOBIN 28.7 pg (25.0-35.0); MEAN CORPUSCULAR HGB CONC 32.8 g/dl (31.0-37.0); MEAN PLATELET VOLUME 10.4 fl (7.0-11.0); MONO # 0.8 (0.1-0.6); MONO % 6.2 % (1.0-6.0); RBC 4.25 10^6/uL (3.5-6.1); RED CELL DISTRIBUTION WIDTH 16.3 % (11.5-14.5); WHITE BLOOD COUNT 12.3 10^3/ul (4.5-11.0)
[2018-03-13 20:33] LABS: ALB/GLOB RATIO 1.2 (1.1-1.8); ALBUMIN 4.1 g/dL (3.0-4.8); ALT/SGPT 52 U/L (7-56); AST/SGOT 91 U/L (14-36); BLOOD UREA NITROGEN 15 mg/dL (7-21); CALCIUM 9.5 mg/dL (8.4-10.5); GFR NON-AFRICAN AMERICAN > 60
[2018-03-13 20:40] LABS: INR 2.11; PARTIAL THROMBOPLASTIN TIME 42.9 Seconds (25.1-36.5); PROTHROMBIN TIME 24.4 SECONDS (9.4-12.5)
[2018-03-13 20:44] LABS: B-TYPE NATRIURETIC PEPTIDE 354 pg/mL (0-450); TROPONIN I < 0.01 ng/mL
[2018-03-13 23:24] VITALS: RESP 20
[2018-03-13 23:29] VITALS: BMI 34.2
[2018-03-14 01:29] LABS: PH,URINE 7.5 (4.7-8.0); URINE BILIRUBIN SMALL (NEGATIVE); URINE BLOOD NEGATIVE (NEGATIVE); URINE GLUCOSE (UA) NEGATIVE (NEGATIVE); URINE LEUKOCYTE ESTERASE TRACE Leu/uL (NEGATIVE); URINE PROTEIN 30 mg/dL (<30 mg/dL)
[2018-03-14 01:41] LABS: URINE APPEARANCE CLEAR (CLEAR); URINE COLOR YELLOW (YELLOW)
[2018-03-14 01:54] LABS: URINE BACTERIA OCC (NEG); URINE EPITHELIAL CELLS 0 - 2 /hpf (0-5); URINE RBC 0 - 2 /hpf (0-2)
--- NOTE | 2018-03-14 06:18 | CP.PCM.HP ---
<Abby Mcclellan - Last Filed: 03/14/18 13:23> History of Present Illness - History of Present Illness History of Present Illness: H&P for Martha Eastman PGY3 This is an 82yo female with past medical history of OA, A.fib (on Coumadin), Bradycardia s/p AICD/Pacer, HTN who came to ED for chest pain. Patient reports that she was sitting at home when she had sudden chest pain that was substernal. It radiated to her back, neck and R shoulder. She has never had this pain before and felt nauseous at the time. The pain resolved on its own. She denies having any shortness of breath, vision changes, nausea/vomiting/diarrhea, diaphoresis, fever/chills, numbness/tingling at the time of the incident. Daughter is at bedside who was present when patient had these symptoms. Patient does follow up with Dr. Rodriguez regularly who she last saw 2 weeks ago. Past medical history: OA, A.fib (on Coumadin), Bradycardia s/p AICD/Pacer, HTN, pulm HTN on last echo 09/2017 (RSVP=63) Past surgical history: Hysterectomy, cholecystectomy, AICD/pacer Home meds: Reviewed and updated as per MAR Allergies: NKDA Social history: Denies Etoh, Drug or tobacco use. Lives with daughter and . Walks with walker Family history: Parents: both from "old age" in their 90s. Sister: Multiple myeloma Cardio: Dr. Rodriguez Present on Admission - Present on Admission Any Indicators Present on Admission: No Review of Systems - Review of Systems All systems: reviewed and no additional remarkable complaints except Review of Systems: 12 point ROS reviewed as per HPI and is otherwise negative. Past Patient History - Infectious Disease Hx of Infectious Diseases: None - Tetanus Immunizations Tetanus Immunization: Unknown - Past Medical History & Family History Past Medical History?: Yes - Past Social History Smoking Status: Never Smoked - CARDIAC Hx Cardiac Disorders: Yes Hx Cardia Arrhythmia: Yes Hx Congestive Heart Failure: Yes Hx Internal Defibrillator: Yes Other/Comment: L sided pacemaker+defibrillator - PULMONARY Hx Respiratory Disorders: Yes Hx Chronic Obstructive Pulmonary Disease (COPD): Yes - NEUROLOGICAL Hx Neurological Disorder: No - HEENT Hx HEENT Problems: Yes Other/Comment: glasses - RENAL Hx Chronic Kidney Disease: No - ENDOCRINE/METABOLIC Hx Endocrine Disorders: No - HEMATOLOGICAL/ONCOLOGICAL Hx Blood Disorders: No - INTEGUMENTARY Hx Dermatological Problems: No - MUSCULOSKELETAL/RHEUMATOLOGICAL Hx Arthritis: Yes Hx Back Pain: Yes Hx Falls: Yes - GASTROINTESTINAL Hx Gastrointestinal Disorders: No - GENITOURINARY/GYNECOLOGICAL Hx Genitourinary Disorders: No - PSYCHIATRIC Hx Psychophysiologic Disorder: No Hx Substance Use: No - SURGICAL HISTORY Hx Surgeries: Yes Hx Cholecystectomy: Yes Hx Hysterectomy: Yes Other/Comment: HEMORRHOIDECTOMY,HYSTERECTOMY. L sided pacemaker defibrillator - ANESTHESIA Hx Anesthesia: Yes Hx Anesthesia Reactions: No Hx Malignant Hyperthermia: No Meds Home Medications: Home Medication List Medication Instructions Recorded Confirmed Type RX: Acetaminophen [Tylenol 325mg 650 mg PO Q4H PRN tab 03/14/18 Rx tab] Allergies/Adverse Reactions: Allergies Allergy/AdvReac Type Severity Reaction Status Date / Time No Known Allergies Allergy Verified 02/16/18 04:34 Physical Exam - Constitutional Appears: No Acute Distress - Head Exam Head Exam: ATRAUMATIC, NORMAL INSPECTION, NORMOCEPHALIC - Eye Exam Eye Exam: Normal appearance, PERRL Pupil Exam: NORMAL ACCOMODATION, PERRL - ENT Exam ENT Exam: Mucous Membranes Moist - Neck Exam Neck exam: Positive for: Full Rom, Normal Inspection. Negative for: Tenderness - Respiratory Exam Respiratory Exam: Clear to Auscultation Bilateral, NORMAL BREATHING PATTERN. absent: Rales, Rhonchi, Wheezes - Cardiovascular Exam Cardiovascular Exam: REGULAR RHYTHM, RRR, +S1, +S2. absent: Bradycardia, Tachycardia, Gallop, Rubs, Systolic Murmur - GI/Abdominal Exam GI & Abdominal Exam: Normal Bowel Sounds, Soft. absent: Guarding, Mass, Rebound, Rigid, Tenderness - Extremities Exam Extremities exam: Positive for: normal inspection. Negative for: calf tenderness, pedal edema - Neurological Exam Neurological exam: Alert, CN II-XII Intact, Oriented x3 - Psychiatric Exam Psychiatric exam: Normal Affect, Normal Mood - Skin Skin Exam: Dry, Intact, Normal Color, Warm Results - Vital Signs Recent Vital Signs: Last Vital Signs Temp 98.0 F 03/14/18 00:00 Pulse 71 03/14/18 05:55 Resp 20 03/14/18 00:00 BP 127/77 03/14/18 00:00 Pulse Ox 94 L 03/14/18 00:00 - Labs Result Diagrams: 03/13/18 20:09 03/13/18 20:09 Labs: Laboratory Results - last 24 hr 03/13/18 03/13/18 03/13/18 20:09 20:09 20:09 WBC 12.3 H D RBC 4.25 Hgb 12.2 Hct 37.2 MCV 87.5 MCH 28.7 MCHC 32.8 RDW 16.3 H Plt Count 198 MPV 10.4 Gran % 85.2 H Lymph % (Auto) 8.5 L Blaine % (Auto) 6.2 H Eos % (Auto) 0.0 L Baso % (Auto) 0.1 Gran # 10.46 H Lymph # (Auto) 1.0 L Blaine # (Auto) 0.8 H Eos # (Auto) 0.0 Baso # (Auto) 0.01 PT 24.4 H INR 2.11 APTT 42.9 H Sodium 137 Potassium 3.9 Chloride 92 L Carbon Dioxide 36 H Anion Gap 12 BUN 15 Creatinine 0.6 L Est GFR ( Amer) > 60 Est GFR (Non-Af Amer) > 60 Random Glucose 126 H Calcium 9.5 Magnesium 1.5 L Total Bilirubin 1.8 H AST 91 H D ALT 52 Alkaline Phosphatase 93 Lactate Dehydrogenase 634 Total Creatine Kinase 29 L Troponin I < 0.01 D NT-Pro-B Natriuret Pep 354 Total Protein 7.5 Albumin 4.1 Globulin 3.4 Albumin/Globulin Ratio 1.2 Urine Color Urine Appearance Urine pH Ur Specific [place] Urine Protein Urine Glucose (UA) Urine Ketones Urine Blood Urine Nitrate Urine Bilirubin Urine Urobilinogen Ur Leukocyte Esterase Urine RBC Urine WBC Ur Epithelial Cells Urine Bacteria 03/14/18 01:20 WBC RBC Hgb Hct MCV MCH MCHC RDW Plt Count MPV Gran % Lymph % (Auto) Blaine % (Auto) Eos % (Auto) Baso % (Auto) Gran # Lymph # (Auto) Blaine # (Auto) Eos # (Auto) Baso # (Auto) PT INR APTT Sodium Potassium Chloride Carbon Dioxide Anion Gap BUN Creatinine Est GFR ( Amer) Est GFR (Non-Af Amer) Random Glucose Calcium Magnesium Total Bilirubin AST ALT Alkaline Phosphatase Lactate Dehydrogenase Total Creatine Kinase Troponin I NT-Pro-B Natriuret Pep Total Protein Albumin Globulin Albumin/Globulin Ratio Urine Color Yellow Urine Appearance Clear Urine pH 7.5 Ur Specific [place] 1.015 Urine Protein 30 H Urine Glucose (UA) Negative Urine Ketones Negative Urine Blood Negative Urine Nitrate Negative Urine Bilirubin Small H Urine Urobilinogen 1.0 H Ur Leukocyte Esterase Trace H Urine RBC 0 - 2 Urine WBC 2 - 5 Ur Epithelial Cells 0 - 2 Urine Bacteria Occ Assessment & Plan - Assessment and Plan (Free Text) Assessment: 1. Chest pain - r/o ACS 2. A.fib (on Coumadin) 3. Bradycardia s/p Pacer/AICD - stable 4. HTN 5. OA 6. Pulm HTN Plan: Labs and imaging reviewed. Troponin negative x 2. Last echo (09/13/2017) showed EF 50%, RSVP 63, Moderate TR/MR. EKG showed paced rhythm @74bpm. Cardiology consulted. Home medications continued. INR is therapeutic. As per cardiology, patient can be d/c home. She will follow up with Dr. Rodriguez as outpatient for stress test. She will continue her home meds. Patient and daughter both verbalized and agreed with d/c plan. Case seen, discussed and reviewed with Dr. Ruggiero. Martha Mcclellan PGY3 - Date & Time Date: 03/14/18 Time: 13:24 <Jw Ruggiero S - Last Filed: 03/14/18 16:44> Results - Vital Signs Recent Vital Signs: Last Vital Signs Temp 98.2 F 03/14/18 08:10 Pulse 70 03/14/18 10:00 Resp 20 03/14/18 08:10 BP 123/73 03/14/18 10:53 Pulse Ox 95 03/14/18 08:10 - Labs Result Diagrams: 03/13/18 20:09 03/13/18 20:09 Labs: Laboratory Results - last 24 hr 03/13/18 03/13/18 03/13/18 20:09 20:09 20:09 WBC 12.3 H D RBC 4.25 Hgb 12.2 Hct 37.2 MCV 87.5 MCH 28.7 MCHC 32.8 RDW 16.3 H Plt Count 198 MPV 10.4 Gran % 85.2 H Lymph % (Auto) 8.5 L Blaine % (Auto) 6.2 H Eos % (Auto) 0.0 L Baso % (Auto) 0.1 Gran # 10.46 H Lymph # (Auto) 1.0 L Blaine # (Auto) 0.8 H Eos # (Auto) 0.0 Baso # (Auto) 0.01 PT 24.4 H INR 2.11 APTT 42.9 H Sodium 137 Potassium 3.9 Chloride 92 L Carbon Dioxide 36 H Anion Gap 12 BUN 15 Creatinine 0.6 L Est GFR ( Amer) > 60 Est GFR (Non-Af Amer) > 60 Random Glucose 126 H Calcium 9.5 Magnesium 1.5 L Total Bilirubin 1.8 H AST 91 H D ALT 52 Alkaline Phosphatase 93 Lactate Dehydrogenase 634 Total Creatine Kinase 29 L Troponin I < 0.01 D NT-Pro-B Natriuret Pep 354 Total Protein 7.5 Albumin 4.1 Globulin 3.4 Albumin/Globulin Ratio 1.2 Urine Color Urine Appearance Urine pH Ur Specific [place] Urine Protein Urine Glucose (UA) Urine Ketones Urine Blood Urine Nitrate Urine Bilirubin Urine Urobilinogen Ur Leukocyte Esterase Urine RBC Urine WBC Ur Epithelial Cells Urine Bacteria 03/14/18 03/14/18 01:20 08:45 WBC RBC Hgb Hct MCV MCH MCHC RDW Plt Count MPV Gran % Lymph % (Auto) Blaine % (Auto) Eos % (Auto) Baso % (Auto) Gran # Lymph # (Auto) Blaine # (Auto) Eos # (Auto) Baso # (Auto) PT INR APTT Sodium Potassium Chloride Carbon Dioxide Anion Gap BUN Creatinine Est GFR ( Amer) Est GFR (Non-Af Amer) Random Glucose Calcium Magnesium Total Bilirubin AST ALT Alkaline Phosphatase Lactate Dehydrogenase Total Creatine Kinase Troponin I < 0.01 NT-Pro-B Natriuret Pep Total Protein Albumin Globulin Albumin/Globulin Ratio Urine Color Yellow Urine Appearance Clear Urine pH 7.5 Ur Specific [place] 1.015 Urine Protein 30 H Urine Glucose (UA) Negative Urine Ketones Negative Urine Blood Negative Urine Nitrate Negative Urine Bilirubin Small H Urine Urobilinogen 1.0 H Ur Leukocyte Esterase Trace H Urine RBC 0 - 2 Urine WBC 2 - 5 Ur Epithelial Cells 0 - 2 Urine Bacteria Occ Assessment & Plan - Assessment and Plan (Free Text) Plan: Pt seen and examined. I have reviewed the note of the medical esthetician and agree with it. I have discussed the assessment and plan with the resident. I have reviewed the patient's labs and medications. Pt with CP that has now resoled. She had trop that are negative. She was seen by cardiology, Dr Rodriguez. He has cleared her to go home and will perform stress test as outpt. He INR is therapeutic. Spoke to daughter at bedside.
[2018-03-14] MEDS ORDERED: Magnesium Sulfate 2 gm/50 ml 2 GM/50 ML BAG IVPB ONE (07:27)
[2018-03-14 08:11] VITALS: BP 123/73; PULSE 70; TEMP 98.2; O2SAT 95
--- NOTE | 2018-03-14 09:40 | RAD ---
Date of service: 03/13/2018 HISTORY: cp COMPARISON: Portable chest 10/07/2017. FINDINGS: LUNGS: No right-sided infiltrate. Some obscuring of the left hemidiaphragm may be a function of atelectasis at the left base. Infiltrate is difficult to completely exclude here. PLEURA: No significant pleural effusion identified, no pneumothorax apparent. CARDIOVASCULAR: Cardiomegaly stable. AICD/permanent pacemaker reiterated. No definite pulmonary vascular congestion. OSSEOUS STRUCTURES: No significant abnormalities. VISUALIZED UPPER ABDOMEN: Normal. OTHER FINDINGS: None. IMPRESSION: Stable cardiomegaly. No definite pulmonary vascular congestion. Left basilar atelectasis favored over infiltrate. None is seen at the right.
[2018-03-14] MEDS ORDERED: Metoprolol Succinate 50 mg XL Tab PO SCH (10:00)
[2018-03-14] MEDS ORDERED: Magnesium Oxide 400 mg Tab UD PO SCH (10:00)
--- NOTE | 2018-03-14 10:21 | CARD ---
APPROVED REPORT Date of service: 03/13/2018 EKG Measurement Heart [id number] <Conclusion> Electronic ventricular pacemaker
--- NOTE | 2018-03-14 17:43 | CON ---
DATE: 03/14/2018 CONSULTATION INDICATIONS: Chest pain. HISTORY OF PRESENT ILLNESS: This is an 82-year-old woman who is well-known to me, admitted yesterday when she experienced chest, neck, back, right shoulder discomfort throughout the day. There was some nausea. It got worse, did not respond to Tylenol at home. She came to the emergency room. She was admitted to telemetry. Subsequently, she was given additional Tylenol with relief of symptoms. This morning, she feels well without chest pain. Her daughter is at the bedside. She is sitting in a chair. There is no shortness of breath, orthopnea, PND, syncope, presyncope, lightheadedness, dizziness, vertigo, palpitation, edema, claudication, fever, chills, cough, sputum production, hemoptysis, abdominal pain, vomiting, diarrhea, constipation or melena. PAST MEDICAL HISTORY: Her past medical history is complex. She has coronary artery disease with an apical infarct on the cardiac catheterization. This may have been embolic. She has diastolic congestive heart failure. She has had multiple hospitalizations, August through October of this year. She had paroxysmal atrial flutter, an episode of ventricular tachycardia requiring brief CPR with fractured ribs and chronic pain in the left pectoral area. She had an ICD implanted after an EP evaluation and cardiac catheterization at [facility]. Echocardiography has revealed mild aortic stenosis and mild mitral regurgitation as well as normal LV function. There is also a moderate tricuspid regurgitation and moderate to severe pulmonary hypertension. A right heart catheterization has been planned, but has not been carried out yet. Additional diagnoses include hyperlipidemia, osteoporosis, degenerative joint disease, gallbladder surgery, hysterectomy and hernia surgery. She has had hypokalemia and hypomagnesemia requiring oral supplementation. MEDICATIONS AT THE TIME OF ADMISSION: Include warfarin, potassium chloride, Mag-Ox, Lasix, Lipitor. ALLERGIES: THERE ARE NO MEDICATION ALLERGIES REPORTED. SOCIAL HISTORY: She lives with her daughter. She is ambulatory, but limited. She does not smoke cigarette. She does not drink alcohol. FAMILY HISTORY: Noncontributory. REVIEW OF SYSTEMS: Ten-point review of systems is otherwise unremarkable except as noted above. PHYSICAL EXAMINATION: GENERAL: She is a well-developed woman, sitting in a chair on telemetry, in no acute distress. VITAL SIGNS: Notable for sinus rhythm that is notable for predominantly ventricular pacing at 70 beats per minute. She is afebrile. Blood pressure 123/73, respirations 18-20, O2 sat 94-97% on room air. HEENT: Reveals no neck vein distention, thyromegaly, carotid bruits. Mucous membranes moist. Conjunctivae pink. NECK: Supple. Lung forman are clear throughout. HEART: Examination of the heart revealed a regular rhythm. Normal first and second heart sounds. Systolic murmur along the left sternal border. PMI not palpable. ABDOMEN: Soft. Bowel sounds present. No mass, organomegaly, tenderness, rebound, guarding or CVA tenderness. No palpable abdominal aortic aneurysm. EXTREMITY: Revealed no cyanosis, clubbing, edema. NEUROLOGICAL: Awake, alert and oriented. PSYCHIATRIC: Normal as to mood and affect. LABORATORY AND IMAGING: EKG demonstrates a ventricular paced rhythm. A portable chest x-ray is not interpreted yet. There is cardiomegaly, defibrillator in place. No definite CHF or pleural effusion noted by my reading. White count 12,300, hemoglobin and hematocrit 12.2 and 37.2, platelet count normal. PT 24.4, INR 2.11, PTT 42.9. Electrolytes: BUN, creatinine unremarkable. Chloride 92, carbon dioxide 36, blood sugar 126, magnesium 1.5, bilirubin 1.8, AST 91, ALT 52, CK 29, troponin less than 0.01. BNP 354. IMPRESSION: Devika Hernandez is a complex 82-year-old woman with an episode of chest pain. She has had chronic chest pain following a brief cardiopulmonary resuscitation. This may be related to that traumatic event. She has undergone cardiac catheterization, which did not disclose significant coronary artery disease, although she did have evidence of an apical infarct. At this time, we will repeat a troponin level. She is getting Tylenol and feels much better. The plan is for early discharge and close outpatient followup. I would continue her current medications. She got a dose of IV magnesium. She can be out of bed to a chair. She can ambulate with assistance. I will follow along with you. I have discussed the case with Dr. Ruggiero. I will continue close outpatient followup and lab monitoring. A RHC will be scheduled. Kirit Elkind, MD [facility] # [id number] WALKER
== END 2018-03-14 14:50 | disposition home health service (06) ==
LOC: ED 18:37 → ERH 22:12 → 3RNO 22:45
PROVIDERS: ADMIT Internal Medicine Nephrology; ATTEND Internal Medicine Nephrology
DX: G89.29 Other chronic pain (principal); I50.32 Chronic diastolic (congestive) heart failure; I11.0 Hypertensive heart disease with heart failure; I25.10 Atherosclerotic heart disease of native coronary artery without angina pectoris; I27.20 Pulmonary hypertension, unspecified; J44.9 Chronic obstructive pulmonary disease, unspecified; I08.3 Combined rheumatic disorders of mitral, aortic and tricuspid valves; E87.6 Hypokalemia; E83.42 Hypomagnesemia; M81.0 Age-related osteoporosis without current pathological fracture; E78.5 Hyperlipidemia, unspecified; I48.91 Unspecified atrial fibrillation; Z79.01 Long term (current) use of anticoagulants; Z95.810 Presence of automatic (implantable) cardiac defibrillator; Z90.49 Acquired absence of other specified parts of digestive tract; Z90.710 Acquired absence of both cervix and uterus

== ENCOUNTER 2018-03-27 08:54 | Emergency (ER) | payer MEDICARE ==
[2018-03-27 08:54] VITALS: PULSE 54; BMI 34.2
--- NOTE | 2018-03-27 09:32 | ED PDOC ---
Arrival/HPI - General Chief Complaint: Chest Pain Time Seen by Provider: 03/27/18 09:15 Historian: Patient, Caregiver - History of Present Illness Narrative History of Present Illness (Text): 03/27/18 09:24 A 82 year old female, whose past medical history includes pacemaker- defibrillator placement, hypertension, CHF, A-Fib on Coumadin, and COPD, presents to the emergency department for evaluation. Family report that visiting nurse came today and noticed that patient's O2 saturation was 90% (baseline is 94% per daughter) and that visiting nurse also felt that she had abnormal sound in her L lung base. Visiting nurse called Dr. De La Garza who referred her to the ED for evaluation. Patient reports baseline chest pain and shortness of breath since discharge from the hospital on 03/13. They report increased lower extremity edema over the last 2 days. Patient is scheduled for outpatient stress with Dr. Rodriguez in early April. PMD: Dr. De La Garza Past Medical History - Provider Review Nursing Documentation Reviewed: Yes - Infectious Disease Hx of Infectious Diseases: None - Tetanus Immunization Tetanus Immunization: Unknown - Cardiac Hx Cardiac Disorders: Yes Hx Atrial Fibrillation: Yes Hx Congestive Heart Failure: Yes Hx WA: Yes Other/Comment: L sided pacemaker+defibrillator - Pulmonary Hx Chronic Obstructive Pulmonary Disease (COPD): Yes - Neurological Hx Neurological Disorder: No - HEENT Hx HEENT Disorder: Yes Other/Comment: glasses - Renal Hx Renal Disorder: No - Endocrine/Metabolic Hx Endocrine Disorders: No - Hematological/Oncological Hx Blood Disorders: No - Integumentary Hx Dermatological Disorder: No - Musculoskeletal/Rheumatological Hx Arthritis: Yes - Gastrointestinal Hx Gastrointestinal Disorders: No - Genitourinary/Gynecological Hx Reproductive Disorders: No - Psychiatric Hx Psychophysiologic Disorder: No Hx Substance Use: No - Surgical History Hx Cholecystectomy: Yes Hx Hysterectomy: Yes Other/Comment: HEMORRHOIDECTOMY,HYSTERECTOMY. L sided pacemaker defibrillator - Anesthesia Hx Anesthesia: Yes Hx Anesthesia Reactions: No Hx Malignant Hyperthermia: No - Suicidal Assessment Feels Threatened In Home Enviroment: No Family/Social History - Physician Review Nursing Documentation Reviewed: Yes Family/Social History: No Known Family HX Smoking Status: Never Smoked Hx Alcohol Use: No Hx Substance Use: No Hx Substance Use Treatment: No Allergies/Home Meds Allergies/Adverse Reactions: Allergies No Known Allergies Allergy (Verified 03/27/18 08:57) Home Medications: Home Meds Medication Instructions Recorded Confirmed Atorvastatin Calcium [Lipitor] 10 mg PO DAILY 05/11/12 03/27/18 Warfarin [Coumadin] 2 mg PO 1800 05/11/12 03/27/18 Magnesium Oxide [Mag-Ox] 400 mg PO BID 08/17/17 03/27/18 Potassium Chloride [Klor-Con M20] 20 meq PO Q4H 08/17/17 03/27/18 Furosemide [Lasix] 20 mg PO DAILY 09/26/17 03/27/18 Review of Systems - Review of Systems Constitutional: absent: Fatigue, Weight Change, Fevers, Night Sweats Eyes: absent: Vision Changes ENT: absent: Hearing Changes Respiratory: SOB (baseline). absent: Cough, Sputum, Wheezing Cardiovascular: Edema. absent: Chest Pain, Palpitations, Calf Pain, Orthopnea, Syncope Gastrointestinal: absent: Abdominal Pain, Constipation, Diarrhea, Nausea, Vomiting Genitourinary Female: absent: Dysuria Skin: absent: Rash Neurological: absent: Headache, Dizziness Physical Exam Vital Signs Reviewed: Yes Vital Signs Temp Pulse Pulse Resp BP Pulse Ox 03/27/18 09:00 75 03/27/18 08:54 97.8 F 70 22 184/96 H 90 L Temperature: Afebrile Blood Pressure: Hypertensive Pulse: Regular Respiratory Rate: Normal Appearance: Positive for: Well-Appearing, Non-Toxic, Comfortable Pain Distress: None Mental Status: Positive for: Alert and Oriented X 3 - Systems Exam Head: Present: Atraumatic, Normocephalic Pupils: Present: PERRL Extroacular Muscles: Present: EOMI Conjunctiva: Present: Normal Mouth: Present: Moist Mucous Membranes Neck: Present: Normal Range of Motion Respiratory/Chest: Present: Clear to Auscultation, Good Air Exchange. No: Resp iratory Distress, Decreased Breath Sounds Cardiovascular: Present: Regular Rate and Rhythm, Normal S1, S2. No: Murmurs Abdomen: No: Tenderness, Distention, Peritoneal Signs Back: Present: Normal Inspection Upper Extremity: Present: Normal Inspection. No: Cyanosis, Edema Lower Extremity: Present: Edema (+2 pitting edema) Neurological: Present: GCS=15, CN II-XII Intact, Speech Normal Skin: Present: Warm, Dry, Normal Color. No: Rashes Psychiatric: Present: Alert, Oriented x 3, Normal Insight, Normal Concentration Medical Decision Making ED Course and Treatment: 03/27/18 09:28 Impression: 82 year old female brought in for evaluation Plan: -- EKG -- Chest X-ray -- Labs -- Aspirin -- Venous Blood Gas -- Reassess and disposition Prior Visits: Notes and results from previous visits were reviewed. Patient was last seen in the emergency department on 03/13/2018 for chest pain. Patient was admitted. Progress Notes: EKG: Ordered, reviewed, and independently interpreted the EKG. Rate : 70 BPM Rhythm : Pacemaker Interpretation : No ST-segment elevations or depressions, no T-wave inversions, normal intervals. Comparison : No previous EKG for comparison. 03/27/18 10:[address] Rodriguez. He reviewed xray and labs while I was on the phone with him. He reports that chest pain is chronic and patient can be discharged 03/27/2018 10:54 Chest X-ray FINDINGS: LUNGS: Possible abnormal opacity at left base. Obscured by cardiac silhouette. Cannot rule out left lower lobe infiltrate. No right-sided infiltrate. PLEURA: Probable small left pleural effusion. No right pleural effusion. No pn eumothorax. CARDIOVASCULAR: Cardiomegaly. AICD. No congestive change. OSSEOUS STRUCTURES: No significant abnormalities. VISUALIZED UPPER ABDOMEN: Normal. OTHER FINDINGS: None. IMPRESSION: Cardiomegaly. AICD. Probable small left pleural effusion. Cannot exclude left basilar infiltrate. Dictator: Sharath Garcia MD 03/27/18 12:[address] De La Garza. He does not want antibiotics given to patient. He reports that patient can be discharged after repeat trop. He recommends increasing lasix for 3 days (currently on lasix 40mg daily) 03/27/18 12:43 03/27/18 14:11 03/27/18 15:17 Repeat ekg shows paced rhythm at 70bpm. Repeat troponin negative. Family and patient are aware of necessary follow-up. 03/27/18 16:14 - Lab Interpretations I have reviewed the lab results: Yes - RAD Interpretation Radiology Orders: 03/27/18 09:16 CHEST PORTABLE [RAD] Stat - Medication Orders Current Medication Orders: Discontinued Medications Aspirin (Aspirin Chewable) 81 mg PO STAT STA Stop: 03/27/18 09:17 - Scribe Statement The provider has reviewed the documentation as recorded by the Landon Mcarthur Provider Scribe Attestation: All medical record entries made by the Scribe were at my direction and personally dictated by me. I have reviewed the chart and agree that the record accurately reflects my personal performance of the history, physical exam, medical decision making, and the department course for this patient. I have also personally directed, reviewed, and agree with the discharge instructions and disposition. Disposition/Present on Arrival - Present on Arrival Any Indicators Present on Arrival: No History of DVT/PE: No History of Uncontrolled Diabetes: No Urinary Catheter: No History of Decub. Ulcer: No History Surgical Site Infection Following: None - Disposition Have Diagnosis and Disposition been Completed?: Yes Diagnosis: Cardiomegaly, Chest pain, Pleural effusion Disposition: HOME/ ROUTINE Disposition Time: 11:12 Patient Plan: Discharge Patient Problems: Current Active Problems Problem Status Onset Cardiomegaly Acute Pleural effusion Acute Chest pain Acute Condition: GOOD Discharge Instructions (ExitCare): Chest Pain, Pleural Effusion (DC), Chest Pain (ED) Additional Instructions: Follow-up with Dr. Rodriguez for stress test. Follow-up with Dr. De La Garza within 2 days. Return to ED if condition worsens. Take lasix 60mg for 3 days Forms: [employer] (Scottish)
[2018-03-27 09:36] LABS: VENOUS BLOOD GAS PO2 37 mm/Hg (30-55); VENOUS BLOOD PH 7.41 (7.32-7.43)
[2018-03-27 09:37] LABS: BASO # 0.03 K/mm3 (0.0-2.0); BASO % 0.3 % (0.0-3.0); GRAN # 7.42 (1.4-6.5); GRAN % 71.8 % (50.0-68.0); HEMOGLOBIN 11.6 g/dL (12.0-16.0); LYMPH # 2.4 (1.2-3.4); LYMPH % 23.2 % (22.0-35.0); MEAN CELL VOLUME 89.3 fl (80.0-105.0); MEAN CORPUSCULAR HEMOGLOBIN 28.2 pg (25.0-35.0); MEAN CORPUSCULAR HGB CONC 31.5 g/dl (31.0-37.0); MEAN PLATELET VOLUME 10.3 fl (7.0-11.0); MONO # 0.5 (0.1-0.6); MONO % 4.7 % (1.0-6.0); RBC 4.12 10^6/uL (3.5-6.1); RED CELL DISTRIBUTION WIDTH 15.8 % (11.5-14.5); WHITE BLOOD COUNT 10.3 10^3/ul (4.5-11.0)
[2018-03-27 09:39] LABS: INR 2.66; PARTIAL THROMBOPLASTIN TIME 46.9 Seconds (25.1-36.5); PROTHROMBIN TIME 31.2 SECONDS (9.4-12.5)
[2018-03-27 09:42] LABS: ALT/SGPT 39 U/L (7-56); AST/SGOT 44 U/L (14-36); BLOOD UREA NITROGEN 21 mg/dL (7-21); CALCIUM 9.8 mg/dL (8.4-10.5); GFR NON-AFRICAN AMERICAN > 60
[2018-03-27 09:52] LABS: B-TYPE NATRIURETIC PEPTIDE 181 pg/mL (0-450); TROPONIN I < 0.01 ng/mL
--- NOTE | 2018-03-27 10:58 | RAD ---
Date of service: 03/27/2018 HISTORY: chest pain COMPARISON: 03/13/2018 FINDINGS: LUNGS: Possible abnormal opacity at left base. Obscured by cardiac silhouette. Cannot rule out left lower lobe infiltrate. No right-sided infiltrate. PLEURA: Probable small left pleural effusion. No right pleural effusion. No pneumothorax. CARDIOVASCULAR: Cardiomegaly. AICD. No congestive change. OSSEOUS STRUCTURES: No significant abnormalities. VISUALIZED UPPER ABDOMEN: Normal. OTHER FINDINGS: None. IMPRESSION: Cardiomegaly. AICD. Probable small left pleural effusion. Cannot exclude left basilar infiltrate.
--- NOTE | 2018-03-27 14:45 | CARD ---
APPROVED REPORT Date of service: 03/27/2018 EKG Measurement Heart [id number] <Conclusion> Electronic ventricular pacemaker: 100% V. Paced Atrial fibrillation.
[2018-03-27 15:33] LABS: TROPONIN I < 0.01 ng/mL
[2018-03-27 15:54] VITALS: O2SAT 98
[2018-03-27 15:55] VITALS: BP 127/74
[2018-03-27 19:06] VITALS: PULSE 97; RESP 19; TEMP 98.9
--- NOTE | 2018-03-28 10:38 | CARD ---
APPROVED REPORT Date of service: 03/27/2018 EKG Measurement Heart [id number] <Conclusion> Electronic ventricular pacemaker: 100 % V. Paced A. Fib. No change
== END 2018-03-27 15:55 | disposition home or self-care (01) ==
LOC: ED 08:54
DX: J90 Pleural effusion, not elsewhere classified (principal); R07.9 Chest pain, unspecified; I11.0 Hypertensive heart disease with heart failure; I50.9 Heart failure, unspecified; I48.91 Unspecified atrial fibrillation; I25.2 Old myocardial infarction; J44.9 Chronic obstructive pulmonary disease, unspecified; Z79.01 Long term (current) use of anticoagulants; Z95.0 Presence of cardiac pacemaker
CPT/HCPCS: 71045; 80053; 82550; 82803; 83615; 83880; 84484; 85025; 85610; 85730; 93005; 96374; 99284; J1940

== ENCOUNTER 2018-04-17 06:28 | Day surgery (SDC) | payer MEDICARE ==
[2018-04-12 09:44] VITALS: BMI 33.7
[2018-04-17 07:02] LABS: BASO # 0.02 K/mm3 (0.0-2.0); BASO % 0.2 % (0.0-3.0); EOS # 0.1 (0.0-0.7); EOS % 1.2 % (1.5-5.0); GRAN # 7.2 (1.4-6.5); GRAN % 69.3 % (50.0-68.0); HEMOGLOBIN 11.5 g/dL (12.0-16.0); LYMPH # 2.4 (1.2-3.4); LYMPH % 22.6 % (22.0-35.0); MEAN CELL VOLUME 86.7 fl (80.0-105.0); MEAN CORPUSCULAR HEMOGLOBIN 27.8 pg (25.0-35.0); MEAN CORPUSCULAR HGB CONC 32.1 g/dl (31.0-37.0); MEAN PLATELET VOLUME 10.2 fl (7.0-11.0); MONO # 0.7 (0.1-0.6); MONO % 6.7 % (1.0-6.0); RBC 4.13 10^6/uL (3.5-6.1); RED CELL DISTRIBUTION WIDTH 15.7 % (11.5-14.5); WHITE BLOOD COUNT 10.4 10^3/uL (4.5-11.0)
[2018-04-17 07:13] LABS: INR 1.45; PARTIAL THROMBOPLASTIN TIME 37.2 Seconds (25.1-36.5); PROTHROMBIN TIME 16.8 SECONDS (9.4-12.5)
[2018-04-17 07:34] LABS: BLOOD UREA NITROGEN 22 mg/dL (7-21); CALCIUM 9.3 mg/dL (8.4-10.5); GFR NON-AFRICAN AMERICAN > 60
[2018-04-17] MEDS ORDERED: Lidocaine 2% Inj (20ml) ONE (08:19)
[2018-04-17] MEDS ORDERED: Midazolam 2 MG/2 ML VIAL ONE (09:33)
[2018-04-17 10:29] VITALS: RESP 18; TEMP 97.8
--- NOTE | 2018-04-17 10:32 | CARDCATH ---
PROCEDURE DATE: 04/17/2018 RIGHT HEART CATHETERIZATION PROCEDURE: Right heart catheterization. INDICATION: Possible pulmonary hypertension. HISTORY: This is an 82-year-old woman with COPD referred for cardiac catheterization to documented pulmonary artery pressures. FINDINGS: The right heart pressures were as follows: The RA mean pressure was 5. The RV pressure was 60/5. The PA pressure was 60/16 with a mean pressure of 34. The pulmonary capillary wedge pressure was 15. The cardiac output was 3.6 L/minute with a cardiac index of 2.4 L/minute/m2 by thermodilution method. Access was obtained via the right femoral artery and after measurements were completed, the [place] catheter was removed and the puncture site closed with the use of a Mynx device. The patient tolerated the procedure well. CONCLUSION: Mild pulmonary hypertension. RECOMMENDATIONS: Outpatient followup with Dr. Salter and Dr. Rodriguez will be scheduled in order to discuss further treatment options. Toño Vernon MD cc: Donny Salter MD; Rafat De La Garza MD; Kirit Rodriguez MD. MTDD
[2018-04-17 12:04] VITALS: BP 125/71; PULSE 55; O2SAT 98
== END 2018-04-17 12:30 | disposition home or self-care (01) ==
LOC: CATH 06:28
PROVIDERS: ATTEND Internal Medicine Cardiovascular Disease
DX: I27.20 Pulmonary hypertension, unspecified (principal); J44.9 Chronic obstructive pulmonary disease, unspecified
CPT/HCPCS: 36415; 80048; 85025; 85610; 85730; 86850; 86900; 93451; 99152; 99153; C1760; C1894; J1644; J2250; J3010

== ENCOUNTER 2018-07-21 16:53 | Emergency (ER) | payer MEDICARE ==
[2018-07-21 16:54] VITALS: PULSE 54
[2018-07-21 17:04] VITALS: BMI 26.1
--- NOTE | 2018-07-21 17:26 | ED PDOC ---
Arrival/HPI - General Chief Complaint: Pacemaker Problem Time Seen by Provider: 07/21/18 17:01 Historian: Patient, Family - History of Present Illness Narrative History of Present Illness (Text): 07/21/18 17:26 A 83 year old female, whose past medical history includes pacemaker defibrillator, Atrial Fibrillation on Coumadin, COPD, hypertension, who is accompanied by daughter, presents to the emergency department complaining of shock sensation to chest. Per daughter, patient was bending down to pick something off the floor and patient had suddenly screamed stating she feels "something blow up in her chest." Daughter states patient gets her defibrillator checked every 6 months. Patient notes this is the first time she ever this shock. Patient denies any nausea, vomiting, shortness of breath, chest pain, chills, or any other complaints at this time. PMD: Dr. De La Garza [place]ar Alarm Inspector: Dr. Agarwal Past Medical History - Provider Review Nursing Documentation Reviewed: Yes - Infectious Disease Hx of Infectious Diseases: None - Tetanus Immunization Tetanus Immunization: Unknown - Cardiac Hx Pacemaker: Yes (August 22, 2017) - Pulmonary Hx Chronic Obstructive Pulmonary Disease (COPD): Yes - Neurological Hx Paralysis: No - HEENT Hx HEENT Disorder: Yes Other/Comment: glasses - Renal Hx Renal Disorder: No - Endocrine/Metabolic Hx Endocrine Disorders: No - Hematological/Oncological Hx Blood Transfusions: No - Integumentary Hx Dermatological Disorder: No - Musculoskeletal/Rheumatological Hx Musculoskeletal Disorders: Yes - Gastrointestinal Hx Gastrointestinal Disorders: No - Genitourinary/Gynecological Hx Reproductive Disorders: No - Psychiatric Hx Emotional Abuse: No Hx Physical Abuse: No Hx Substance Use: No - Surgical History Hx Cholecystectomy: Yes Hx Hysterectomy: Yes Other/Comment: HEMORRHOIDECTOMY,HYSTERECTOMY. L sided pacemaker defibrillator - Anesthesia Hx Anesthesia Reactions: No Hx Malignant Hyperthermia: No - Suicidal Assessment Feels Threatened In Home Enviroment: No Family/Social History - Physician Review Nursing Documentation Reviewed: Yes Family/Social History: No Known Family HX Smoking Status: Never Smoked Hx Alcohol Use: No Hx Substance Use: No Hx Substance Use Treatment: No Allergies/Home Meds Allergies/Adverse Reactions: Allergies No Known Allergies Allergy (Verified 07/21/18 17:08) Home Medications: Home Meds Medication Instructions Recorded Confirmed Atorvastatin Calcium [Lipitor] 10 mg PO DAILY 05/11/12 04/17/18 Warfarin [Coumadin] 2 mg PO 1800 05/11/12 04/17/18 Magnesium Oxide [Mag-Ox] 1 tab PO TID 08/17/17 04/17/18 Potassium Chloride [Klor-Con M20] 2 tab PO BID 08/17/17 04/17/18 Furosemide [Lasix] 40 mg PO DAILY 09/26/17 04/17/18 Calcium Carbonate [Caltrate 600] 600 mg PO DAILY 04/12/18 04/17/18 Folic Acid/Multivit-Min/Lutein 1 tab PO DAILY 04/12/18 04/17/18 [Adult Multivitamin Gummies] Potassium Chloride [Klor-Con M20] 3 tab PO QPM 04/12/18 04/17/18 Review of Systems - Physician Review All systems were reviewed & negative as marked: Yes - Review of Systems Constitutional: absent: Fevers, Night Sweats Respiratory: absent: SOB Cardiovascular: absent: Chest Pain Gastrointestinal: absent: Nausea, Vomiting Physical Exam Vital Signs Reviewed: Yes Vital Signs Temp Pulse Resp BP Pulse Ox 07/21/18 17:03 98.0 F 111 H 18 132/73 97 Temperature: Afebrile Blood Pressure: Normal Pulse: Tachycardic Respiratory Rate: Normal Appearance: Positive for: Well-Appearing, Non-Toxic, Comfortable Pain Distress: None Mental Status: Positive for: Alert and Oriented X 3 - Systems Exam Head: Present: Atraumatic, Normocephalic Pupils: Present: PERRL Extroacular Muscles: Present: EOMI Conjunctiva: Present: Normal Mouth: Present: Moist Mucous Membranes Neck: Present: Normal Range of Motion Respiratory/Chest: Present: Clear to Auscultation, Good Air Exchange. No: Respiratory Distress, Accessory Muscle Use Cardiovascular: Present: Tachycardic Abdomen: No: Tenderness, Distention, Peritoneal Signs Back: Present: Normal Inspection Upper Extremity: Present: Normal Inspection. No: Cyanosis, Edema Lower Extremity: Present: Normal Inspection. No: Edema Neurological: Present: GCS=15, CN II-XII Intact, Speech Normal Skin: Present: Warm, Dry, Normal Color. No: Rashes Psychiatric: Present: Alert, Oriented x 3, Normal Insight, Normal Concentration Medical Decision Making ED Course and Treatment: 07/21/18 17:27 Impression: 83 year old female who came in with sudden shock sensation to chest. Plan: -- EKG -- Chest X-ray -- Labs -- Reassess and disposition Progress Notes: 07/21/18 19:[address] Hiwot Carvajal's service ([facility] hand spray operator) 07/21/2018 19:30 Call made out to [facility]. EKG: Ordered, reviewed, and independently interpreted the EKG. Rate : 111 BPM Rhythm : Sinus tachycardia Interpretation : Normal intervals, bivasticular block, abnormal leads laterally. Comparison : No previous EKG for comparison. 07/21/18 19:53 Case discussed with Andrew from [facility], who will see patient at bedside. - RAD Interpretation Radiology Orders: 07/21/18 17:14 CHEST TWO VIEWS (PA/LAT) [RAD] Stat - Transfer of Care Patient signed out to Dr:: Angel Luis Dong Other: [facility] to ED to interrogate device and final dispositon - Scribe Statement The provider has reviewed the documentation as recorded by the Scribe Charles Mcarthur Provider Scribe Attestation: All medical record entries made by the Scribe were at my direction and personally dictated by me. I have reviewed the chart and agree that the record accurately reflects my personal performance of the history, physical exam, medical decision making, and the department course for this patient. I have also personally directed, reviewed, and agree with the discharge instructions and disposition. Disposition/Present on Arrival - Present on Arrival Any Indicators Present on Arrival: No History of DVT/PE: No History of Uncontrolled Diabetes: No Urinary Catheter: No History of Decub. Ulcer: No History Surgical Site Infection Following: None - Disposition Have Diagnosis and Disposition been Completed?: No Diagnosis: Defibrillator discharge Disposition Time: 20:06 Patient Problems: Current Active Problems Problem Status Onset Defibrillator discharge Acute Condition: STABLE Referrals: Rafat De La Garza MD [Primary Care Provider] - Follow up with primary Forms: [employer] (I[place]ic)
[2018-07-21 18:00] LABS: BASO # 0.02 K/mm3 (0.0-2.0); BASO % 0.3 % (0.0-3.0); EOS # 0.1 (0.0-0.7); HEMOGLOBIN 12.2 g/dL (12.0-16.0); LYMPH # 2.7 (1.2-3.4); LYMPH % 33.5 % (22.0-35.0); MEAN CELL VOLUME 88.7 fl (80.0-105.0); MEAN CORPUSCULAR HEMOGLOBIN 29.3 pg (25.0-35.0); MEAN PLATELET VOLUME 10.3 fl (7.0-11.0); MONO # 0.4 (0.1-0.6); RBC 4.17 10^6/uL (3.5-6.1); RED CELL DISTRIBUTION WIDTH 16.1 % (11.5-14.5)
[2018-07-21 18:09] LABS: INR 2.03; PARTIAL THROMBOPLASTIN TIME 47.6 Seconds (26.9-38.3); PROTHROMBIN TIME 22.5 SECONDS (9.4-12.5)
[2018-07-21 18:19] LABS: ALB/GLOB RATIO 1.1 (1.1-1.8); ALBUMIN 4.3 g/dL (3.0-4.8); ALT/SGPT 16 U/L (7-56); AST/SGOT 41 U/L (14-36); BLOOD UREA NITROGEN 26 mg/dL (7-21); CALCIUM 9.6 mg/dL (8.4-10.5); GFR NON-AFRICAN AMERICAN 60
[2018-07-21 18:31] LABS: B-TYPE NATRIURETIC PEPTIDE 609 pg/mL (0-450); TROPONIN I < 0.01 ng/mL
--- NOTE | 2018-07-21 20:15 | ED PDOC ---
Physical Exam Vital Signs Temp Pulse Resp BP Pulse Ox 07/21/18 18:00 116 H 20 138/76 98 07/21/18 17:03 98.0 F 111 H 18 132/73 97 Pulse: Tachycardic - Systems Exam Head: Present: Atraumatic, Normocephalic Pupils: Present: PERRL Extroacular Muscles: Present: EOMI Conjunctiva: Present: Normal Neck: Present: Normal Range of Motion. No: Meningeal Signs Respiratory/Chest: Present: Clear to Auscultation Cardiovascular: Present: Tachycardic Abdomen: No: Tenderness, Distention Back: Present: Normal Inspection. No: CVA Tenderness, Midline Tenderness Upper Extremity: Present: Normal Inspection Lower Extremity: Present: Normal Inspection Neurological: Present: GCS=15, Speech Normal Psychiatric: Present: Alert, Oriented x 3 Medical Decision Making ED Course and Treatment: 07/21/18 20:[address] Dillon: 83 yr old female w/ hx of AFib on coumadin, AICD p/w possible AICD discharge. labs, imaging unremarkable per previous team. Pending eval by Andrew from [facility] Pt in NAD, agreeable to wait. Time for eval is between [id number] per Andrew. X-Ray of chest reviewed by radiologist, shows: Dictated by: Yash Land M.D. Dictated Date/Time: 07/21/2018 21:02 FINDINGS: LUNGS: The lungs appear within normal limits. PLEURAL SPACES: No evidence of pleural effusion or pneumothorax. MEDIASTINUM: Moderate cardiomegaly is noted. Otherwise, thecardiomediastinal silhouette is within normal limits. There is atheromatous plaquing noted within the aortic arch. A dual lead left transvenous pacemaker device is present. BONES: No acute osseous abnormality. The osseous structures are diffusely osteoporotic. IMPRESSION: 1. No acute cardiopulmonary pathology is evident. 2. Moderate cardiomegaly. 3. A dual lead left transvenous pacemaker device is present. 07/21/18 21:[address] [facility] AICD tech: Discharge earlier due to AFib w/ RVR, normal pulses range in the 70s per AICD tech Pt has no complaints at this time Given remains tachy in the 110, ?mild afib w/ RVR. I reccomended treatment and admission but pt refuses admission and states she is feeling fine. I informed patient of her tachycardic heart rhythm and recommended she stays and possibly sees workgroup leader in the morning, but she said she does not want to stay. Patient notes that her heart rhythm has been elevated before and that she has been fine after those moments. I informed her she had an unstable heart rate and the could potentially or be disabled. She notes understanding of the risks and states she will come back if she feels symptomatic. Given clear capacitance, pt signed AMA. I have given patient instructions to return at any time. Leaving Against Medical Advice (AMA): The patient is choosing to leave against medical advice. I have personally explained to the patient that choosing to do so may result in permanent bodily harm, diability, or . I have discussed at great length that without further evaluation and monitoring there may be unforeseen circumstances and/or deterioration causing permanent bodily harm or as a result of their choice. The patient is alert, oriented, and shows the mental capacity to make clear decisions regarding the patients health care at this time. The patient continues to wish to leave against medical advice. In light of the patients decision to leave against medical advice, follow-up has been arranged and the patient is aware of the importance to following up as instructed. The patient has been advised that they should return to the emergency room immediately if they change their mind at any time, or if their condition begins to change or worsen in any way. - Lab Interpretations Lab Results: PT 22.5 SECONDS (9.4-12.5) H 07/21/18 17:57 INR 2.03 07/21/18 17:57 APTT 47.6 Seconds (26.9-38.3) H 07/21/18 17:57 Troponin I < 0.01 ng/mL 07/21/18 17:57 NT-Pro-B Natriuret Pep 609 pg/mL (0-450) H 07/21/18 17:57 Total Bilirubin 0.7 mg/dL (0.2-1.3) 07/21/18 17:57 AST 41 U/L (14-36) H 07/21/18 17:57 ALT 16 U/L (7-56) 07/21/18 17:57 Alkaline Phosphatase 95 U/L (38-126) 07/21/18 17:57 Total Protein 8.0 g/dL (5.8-8.3) 07/21/18 17:57 Albumin 4.3 g/dL (3.0-4.8) 07/21/18 17:57 Globulin 3.7 gm/dL 07/21/18 17:57 Albumin/Globulin Ratio 1.1 (1.1-1.8) 07/21/18 17:57 - RAD Interpretation Radiology Orders: 07/21/18 17:14 CHEST TWO VIEWS (PA/LAT) [RAD] Stat Tug Master: Radiologist Disposition/Present on Arrival - Present on Arrival Any Indicators Present on Arrival: No History of DVT/PE: No History of Uncontrolled Diabetes: No Urinary Catheter: No History of Decub. Ulcer: No History Surgical Site Infection Following: None - Disposition Have Diagnosis and Disposition been Completed?: Yes Diagnosis: Defibrillator discharge Disposition: AGAINST MEDICAL ADVICE Disposition Time: 21:53 Condition: GUARDED Referrals: Rafat De La Garza MD [Primary Care Provider] - Follow up with primary Forms: [employer] ([place])
[2018-07-21 22:00] VITALS: RESP 18
[2018-07-21 22:01] VITALS: BP 132/68; PULSE 116; TEMP 98.2; O2SAT 96
--- NOTE | 2018-07-22 09:23 | CARD ---
APPROVED REPORT Date of service: 07/21/2018 EKG Measurement Heart [id number] PA 192P [id number] <Conclusion> Sinus tachycardia Right bundle branch block Left anterior fascicular block Bifascicular block T wave abnormality, consider lateral ischemia Abnormal ECG
--- NOTE | 2018-07-22 09:47 | RAD ---
Date of service: 07/21/2018 HISTORY: defib firing? COMPARISON: No prior. TECHNIQUE: Chest PA and lateral FINDINGS: LUNGS: No active pulmonary disease. PLEURA: No significant pleural effusion identified. No pneumothorax apparent. CARDIOVASCULAR: Aortic calcification Mild cardiomegaly no pulmonary vascular congestion. OSSEOUS STRUCTURES: No significant abnormalities. VISUALIZED UPPER ABDOMEN: Normal. OTHER FINDINGS: Dual lead pacemaker IMPRESSION: No active disease.
== END 2018-07-21 22:02 | disposition left against medical advice (07) ==
LOC: ED 16:53
DX: T82.198A Other mechanical complication of other cardiac electronic device, initial encounter (principal); Y84.8 Other medical procedures as the cause of abnormal reaction of the patient, or of later complication, without mention of misadventure at the time of the procedure; Y92.89 Other specified places as the place of occurrence of the external cause; I48.91 Unspecified atrial fibrillation; Z79.01 Long term (current) use of anticoagulants; I10 Essential (primary) hypertension; J44.9 Chronic obstructive pulmonary disease, unspecified